=== PATIENT | female | born 1960 | race Caucasian/White ===

== ENCOUNTER → 2017-04-05 | Outpatient (CLI) | payer OTHER ==
--- NOTE | 2017-04-05 13:45 | DIAGNOSTIC IMAGING REPORT ---
BRAIN COMBO CLINICAL HISTORY: ABNORMAL GAIT, TREMOR, NUMBNESS ON LEFT SIDE COMPARISON STUDY: No previous studies for comparison. TECHNIQUE: Utilizing a 1.5 Basia magnet and dedicated coil, multiplanar, multiecho imaging of the brain was performed pre and postcontrast administration. IV administration of 8.5 mL of Gadavist contrast was uneventful. FINDINGS: Diffusion-weighted images show no evidence for an acute ischemic process. Signal characteristics of the cerebellar as well as cerebral hemispheres are unremarkable. Ventricular system is midline. Sella and parasellar regions are unremarkable. Postcontrast images are negative for abnormal postcontrast enhancement. IMPRESSION: Normal study. The above report was generated using voice recognition software. It may contain grammatical, syntax or spelling errors. Electronically signed by: Chin Reyes M.D. 04/05/2017 1:44 PM Dictated Date/Time: 04/05/2017 1:40 PM
== END | disposition home or self-care (01) ==
LOC: MERGE 12:23 → C.MRIBC 12:23
PROVIDERS: ATTEND Psychiatry & Neurology Neurology
DX: R25.1 Tremor, unspecified (principal); R26.9 Unspecified abnormalities of gait and mobility; R20.0 Anesthesia of skin

== ENCOUNTER → 2017-05-31 | Outpatient (CLI) | payer OTHER ==
[2017-05-31 12:21] LABS: INR 2.8 (0.9-1.1); PROTHROMBIN TIME (PATIENT) 31.5 SECONDS (9.0-12.0)
[2017-05-31 12:39] LABS: ESTIMATED AVERAGE GLUCOSE 134 mg/dl; HA1C FLAG Normal (Normal)
[2017-05-31 17:37] LABS: ALT/SGPT 12 U/L (12-78); AST/SGOT 11 U/L (15-37); BLOOD UREA NITROGEN 14 mg/dl (7-18); BUN/CREATININE RATIO 17.9 (10-20); CALCIUM 9.1 mg/dl (8.5-10.1); CARBON DIOXIDE 28 mmol/L (21-32); CHLORIDE 103 mmol/L (98-107); GLUCOSE,FASTING 119 mg/dl (70-99); POTASSIUM 4.3 mmol/L (3.5-5.1); SODIUM 137 mmol/L (136-145)
[2017-05-31 17:39] LABS: ALB/GLOB RATIO 1.1 (0.9-2); ALKALINE PHOSPHATASE 55 U/L (45-117); CHOLESTEROL 236 mg/dl (0-200); CHOLESTEROL/HDL RATIO 4.1; HDL CHOLESTEROL 58 mg/dl; LDL CHOLESTEROL CALCULATED 151 mg/dl; TRIGLYCERIDES 136 mg/dl (0-150); VERY LOW DENSITY LIPOPROT CALC 27 mg/dl
== END | disposition home or self-care (01) ==
LOC: C.LABPBG 11:00
PROVIDERS: ATTEND Physician Assistant
DX: Z00.00 Encounter for general adult medical examination without abnormal findings (principal); E78.5 Hyperlipidemia, unspecified; E11.9 Type 2 diabetes mellitus without complications; D68.9 Coagulation defect, unspecified; Z86.718 Personal history of other venous thrombosis and embolism

== ENCOUNTER → 2017-06-21 | Outpatient (CLI) | payer OTHER | END | disposition home or self-care (01) | LOC: C.LABSPEC 17:54 | PROVIDERS: ATTEND Family Medicine | DX: L02.91 Cutaneous abscess, unspecified (principal) ==

== ENCOUNTER → 2017-11-01 | Outpatient (CLI) | payer OTHER ==
[2017-11-01 17:48] LABS: BASO % 0.4 %; BASO ABS # 0.04 K/uL (0-0.2); EOS % 2.4 %; EOS ABS # 0.21 K/uL (0-0.5); HEMATOCRIT 41.8 % (37-47); HEMOGLOBIN 12.9 g/dL (12.0-16.0); IG# 0.02 K/uL (0.00-0.02); LYMPH % 32.9 %; LYMPH ABS # 2.93 K/uL (1.2-3.4); MEAN CELL VOLUME 95.4 fL (80-100); MEAN CORPUSCULAR HEMOGLOBIN 29.5 pg (25-34); MEAN CORPUSCULAR HGB CONC 30.9 g/dl (32-36); MEAN PLATELET VOLUME 11.2 fL (7.4-10.4); MONO % 7.2 %; MONO ABS # 0.64 K/uL (0.11-0.59); NEUT % 56.9 %; NEUT ABS # 5.07 K/uL (1.4-6.5); PLATELET COUNT 309 K/uL (130-400); RED CELL DISTRIBUTION WIDTH CV 13.9 % (11.5-14.5); WHITE BLOOD COUNT 8.91 K/uL (4.8-10.8)
[2017-11-01 18:44] LABS: BLOOD UREA NITROGEN 20 mg/dl (7-18); CALCIUM 8.8 mg/dl (8.5-10.1); CARBON DIOXIDE 32 mmol/L (21-32); CREATININE 0.84 mg/dl (0.60-1.20); GLUCOSE 105 mg/dl (70-99); POTASSIUM 4.5 mmol/L (3.5-5.1); SODIUM 138 mmol/L (136-145)
== END | disposition home or self-care (01) ==
LOC: C.LABPBG 12:25
PROVIDERS: ATTEND Family Medicine
DX: Z01.818 Encounter for other preprocedural examination (principal)

== ENCOUNTER → 2017-11-09 | Outpatient (CLI) | payer OTHER | END | disposition home or self-care (01) | LOC: C.LABPBG 10:12 | PROVIDERS: ATTEND Nurse Practitioner | DX: E89.0 Postprocedural hypothyroidism (principal) ==

== ENCOUNTER → 2017-11-24 | Outpatient (CLI) | payer OTHER ==
[2017-11-24 12:39] LABS: BASO % 0.5 %; BASO ABS # 0.05 K/uL (0-0.2); EOS ABS # 0.29 K/uL (0-0.5); HEMATOCRIT 39.3 % (37-47); HEMOGLOBIN 12.3 g/dL (12.0-16.0); IG# 0.05 K/uL (0.00-0.02); LYMPH ABS # 2.42 K/uL (1.2-3.4); MEAN CELL VOLUME 92.7 fL (80-100); MEAN CORPUSCULAR HGB CONC 31.3 g/dl (32-36); MEAN PLATELET VOLUME 10.3 fL (7.4-10.4); MONO % 7.3 %; MONO ABS # 0.71 K/uL (0.11-0.59); NEUT % 63.7 %; NEUT ABS # 6.16 K/uL (1.4-6.5); PLATELET COUNT 342 K/uL (130-400); RED CELL DISTRIBUTION WIDTH CV 13.6 % (11.5-14.5); RED CELL DISTRIBUTION WIDTH SD 46.4 fL (36.4-46.3); WHITE BLOOD COUNT 9.68 K/uL (4.8-10.8)
[2017-11-24 14:30] LABS: ALBUMIN 3.2 gm/dl (3.4-5.0); ALT/SGPT 17 U/L (12-78); BLOOD UREA NITROGEN 22 mg/dl (7-18); CALCIUM 8.8 mg/dl (8.5-10.1); CARBON DIOXIDE 30 mmol/L (21-32); CHOLESTEROL 250 mg/dl (0-200); GLUCOSE 123 mg/dl (70-99); POTASSIUM 4.7 mmol/L (3.5-5.1); SODIUM 137 mmol/L (136-145)
[2017-11-24 14:50] LABS: ALKALINE PHOSPHATASE 63 U/L (45-117); AST/SGOT 13 U/L (15-37); LDL CHOLESTEROL CALCULATED 170 mg/dl; TOTAL PROTEIN 7.1 gm/dl (6.4-8.2)
[2017-11-24 15:54] LABS: CREATININE RANDOM URINE 78.8 mg/dl
== END | disposition home or self-care (01) ==
LOC: C.LABPBG 09:48
PROVIDERS: ATTEND Family Medicine
DX: E11.9 Type 2 diabetes mellitus without complications (principal); E89.0 Postprocedural hypothyroidism; R35.0 Frequency of micturition; E78.5 Hyperlipidemia, unspecified; R61 Generalized hyperhidrosis; I10 Essential (primary) hypertension

== ENCOUNTER → 2017-11-30 | Outpatient (CLI) | payer OTHER | END | disposition home or self-care (01) | LOC: C.LABPBG 11:27 | PROVIDERS: ATTEND Family Medicine | DX: R31.9 Hematuria, unspecified (principal) ==

== ENCOUNTER → 2017-12-12 | Outpatient (CLI) | payer OTHER | END | disposition home or self-care (01) | LOC: C.LABPBG 12:13 | PROVIDERS: ATTEND Family Medicine | DX: R31.9 Hematuria, unspecified (principal) ==

== ENCOUNTER → 2018-01-17 | Outpatient (CLI) | payer OTHER ==
[2018-01-17 17:06] LABS: BASO % 0.4 %; BASO ABS # 0.04 K/uL (0-0.2); EOS % 2.4 %; EOS ABS # 0.24 K/uL (0-0.5); HEMATOCRIT 38.2 % (37-47); HEMOGLOBIN 11.9 g/dL (12.0-16.0); IG# 0.03 K/uL (0.00-0.02); LYMPH % 30.3 %; MEAN CELL VOLUME 91.2 fL (80-100); MEAN CORPUSCULAR HEMOGLOBIN 28.4 pg (25-34); MEAN CORPUSCULAR HGB CONC 31.2 g/dl (32-36); MEAN PLATELET VOLUME 10.3 fL (7.4-10.4); MONO % 8.9 %; MONO ABS # 0.88 K/uL (0.11-0.59); NEUT % 57.7 %; NEUT ABS # 5.72 K/uL (1.4-6.5); PLATELET COUNT 276 K/uL (130-400); RED CELL DISTRIBUTION WIDTH CV 14.2 % (11.5-14.5); RED CELL DISTRIBUTION WIDTH SD 47.2 fL (36.4-46.3); WHITE BLOOD COUNT 9.91 K/uL (4.8-10.8)
[2018-01-17 17:21] LABS: BLOOD UREA NITROGEN 23 mg/dl (7-18); CALCIUM 8.5 mg/dl (8.5-10.1); CARBON DIOXIDE 32 mmol/L (21-32); CREATININE 0.88 mg/dl (0.60-1.20); GLUCOSE 126 mg/dl (70-99); POTASSIUM 4.2 mmol/L (3.5-5.1); SODIUM 132 mmol/L (136-145)
== END | disposition home or self-care (01) ==
LOC: C.LABPBG 12:11
PROVIDERS: ATTEND Family Medicine
DX: R25.2 Cramp and spasm (principal)

== ENCOUNTER → 2018-02-02 | Day surgery (SDC) | payer OTHER ==
[2018-01-30 09:35] VITALS: BMI 44.0
--- NOTE | 2018-01-30 10:28 | PAT Medication Instructions ---
Service Date January 30, 2018. Current Home Medication List Albuterol (Ventolin Hfa), 2 PUFF INH Q4 Albuterol Sulf (Albuterol Sulfate), 1 DOSE NEB UD PRN for PRN Ascorbic Acid (Vitamin C), 1,000 MG PO QAM Cholecalciferol (Vitamin D3), 1 TAB PO QAM Cyanocobalamin (Vitamin B-12), 1,000 MCG PO QAM Duloxetine HCl (Cymbalta), 1 CAP PO QAM Duloxetine Hcl (Cymbalta), 60 MG PO HS Enoxaparin (Lovenox), 120 MG SQ Q12H PRN for UD Ferrous Sulfate (Kp Ferrous Sulfate), 1 TAB PO QAM Folic Acid (Folvite), 1 MG PO QAM Furosemide (Lasix), 20 MG PO UD PRN for PRN Gabapentin (Neurontin), 400 MG PO HS Gabapentin (Neurontin), 800 MG PO TID Glucosamine Sulfate (Glucosamine), 1,000 MG PO QAM Home O2 Therapy (Oxygen), 5 LITERS NA HS Hydrocodone-Acetaminophen (Hydrocodone Bitartrate/AC 10-325 mg), 1 TAB PO Q4 PRN for Pain Hydroxyzine Hcl (Atarax), 25 MG PO TID PRN for PRN Levocetirizine Dihydrochloride (Levocetirizine Dihydrochl), 1 TAB PO HS Levothyroxine Sodium (Levothyroxine Sodium), 1 TAB PO QAM Levothyroxine Sodium (Levothyroxine Sodium), 2 TAB PO SAT/SUN Levothyroxine Sodium (Levothyroxine Sodium), 1 TAB PO M-F Magnesium Oxide (Mag-Ox), 400 MG PO QAM Metoprolol Succinate (Metoprolol Succinate ER), 1 TAB PO QAM Montelukast Sodium (Singulair), 10 MG PO QAM Nitroglycerin (Nitrostat), 0.3 MG UT PRN Pantoprazole (Protonix), 20 MG PO QAM Pravastatin (Pravachol ), 20 MG PO HS Senna (Senokot), 1 TAB PO DAILY PRN for Constipation Sucralfate (Sucralfate), 1 TAB PO QPM Tiotropium [place] (Spiriva Handihaler), 1 CAP INH QPM Trazodone HCl (Trazodone HCl), 1 TAB PO HS [Lidocaine Patch], 1 PATCH TOP HS PRN for Pain Medication Instructions For Your Scheduled Surgery -Continue as directed: Enoxaparin (Lovenox), 120 MG SQ Q12H PRN for UD Home O2 Therapy (Oxygen), 5 LITERS NA HS Levothyroxine Sodium (Levothyroxine Sodium), 1 TAB PO QAM Levothyroxine Sodium (Levothyroxine Sodium), 2 TAB PO SAT/SUN Levothyroxine Sodium (Levothyroxine Sodium), 1 TAB PO M-F Nitroglycerin (Nitrostat), 0.3 MG UT PRN - Hold the following medications starting today: Glucosamine Sulfate (Glucosamine), 1,000 MG PO QAM - Hold the following medications 24 hours prior to surgery: [Lidocaine Patch], 1 PATCH TOP HS PRN for Pain - Hold the following medications the morning of surgery: Ascorbic Acid (Vitamin C), 1,000 MG PO QAM Cholecalciferol (Vitamin D3), 1 TAB PO QAM Cyanocobalamin (Vitamin B-12), 1,000 MCG PO QAM Ferrous Sulfate (Kp Ferrous Sulfate), 1 TAB PO QAM Folic Acid (Folvite), 1 MG PO QAM Furosemide (Lasix), 20 MG PO UD PRN for PRN Magnesium Oxide (Mag-Ox), 400 MG PO QAM Senna (Senokot), 1 TAB PO DAILY PRN for Constipation - Take the following medications the morning of surgery with a sip of water: Albuterol (Ventolin Hfa), 2 PUFF INH Q4 (if needed, and bring it with you to the hospital) Albuterol Sulf (Albuterol Sulfate), 1 DOSE NEB UD PRN for PRN Duloxetine HCl (Cymbalta), 1 CAP PO QAM Gabapentin (Neurontin), 800 MG PO TID Hydrocodone-Acetaminophen (Hydrocodone Bitartrate/AC 10-325 mg), 1 TAB PO Q4 PRN for Pain (if needed, but must be taken at least four hours before surgery) Hydroxyzine Hcl (Atarax), 25 MG PO TID PRN for PRN (if needed) Metoprolol Succinate (Metoprolol Succinate ER), 1 TAB PO QAM Montelukast Sodium (Singulair), 10 MG PO QAM Pantoprazole (Protonix), 20 MG PO QAM - Take the following medications as scheduled the night before surgery: Albuterol (Ventolin Hfa), 2 PUFF INH Q4 Albuterol Sulf (Albuterol Sulfate), 1 DOSE NEB UD PRN for PRN (if needed) Duloxetine Hcl (Cymbalta), 60 MG PO HS Furosemide (Lasix), 20 MG PO UD PRN for PRN (if needed) Gabapentin (Neurontin), 400 MG PO HS Gabapentin (Neurontin), 800 MG PO TID Hydrocodone-Acetaminophen (Hydrocodone Bitartrate/AC 10-325 mg), 1 TAB PO Q4 PRN for Pain (if needed) Hydroxyzine Hcl (Atarax), 25 MG PO TID PRN for PRN (if needed) Levocetirizine Dihydrochloride (Levocetirizine Dihydrochl), 1 TAB PO HS Pravastatin (Pravachol ), 20 MG PO HS Senna (Senokot), 1 TAB PO DAILY PRN for Constipation (if needed) Sucralfate (Sucralfate), 1 TAB PO QPM Tiotropium [place] (Spiriva Handihaler), 1 CAP INH QPM Trazodone HCl (Trazodone HCl), 1 TAB PO HS If you have any questions please call us at [phone] or [phone] or [phone]
--- NOTE | 2018-01-30 10:58 | DIAGNOSTIC IMAGING REPORT ---
CHEST 2 VIEWS ROUTINE CLINICAL HISTORY: pre-op, B/L rhonchi on exam COMPARISON STUDY: No previous studies for comparison. FINDINGS: Lung volumes are normal. No pneumothorax or pleural effusion is noted. There is no consolidation to suggest pneumonia. Cardiac size is at the upper limits of normal. Pulmonary vascularity is normal. IMPRESSION: No acute cardiopulmonary findings. Electronically signed by: Mejia Wadsworth M.D. 01/30/2018 10:57 AM Dictated Date/Time: 01/30/2018 10:56 AM
[~2018-02-02] VITALS: Ht 170.2 cm; Wt 129.9 kg
[~2018-02-02] MED LIST: ASCA500 PO; ATROPINE SULFATE 0.1 MG/ML 5ML SYR IV PRN; CHOL1000 PO; CIPR-255 PO; CIPROFLOXACIN / D5W 400 MG IV SCH; CYAN10005 PO; CYM/30 PO; Cysto-Conray II 17.2% 250ML BOTTLE ONE; DEXAMETHASONE SOD INJ 4 MG/ML VIAL ONE; DSY100 PO; DULO60CA44 PO; ENOX120I SQ; EpHEDrine SULFATE INJ 50 MG/ML AMP IV PRN; FENTANYL CITRATE INJ 50 MCG/1 ML 2 ML VIAL IV PRN; FENTANYL CITRATE INJ 50 MCG/1 ML 2 ML VIAL ONE; FERR1TAB13 PO; FLUC100T4 PO; FLUMAZENIL 0.1 MG/1 ML 10 ML VIAL IV PRN; FOLI1TAB8 PO; FURO-85 PO; GABA-1220 PO; GABA800T PO; GLUC10007 PO; GLYCOPYRROLATE INJ 0.2 MG/ML VIAL ONE; HYDR-3126 PO; HYDR-5806 PO; HYDR25CA PO; HYDROmorphone INJ 2 MG/ML SYR/VIAL IV PRN; KETAMINE HCL INJ 50 MG/ML 10 ML VIAL ONE; LABETALOL HCL IV 5 MG/ML 20ML IV PRN; LACTATED RINGER'S 1000ML 1,000 ML IV SCH; LEVO-14 PO; LEVO200T6 PO; LEVO75TA5 PO; LIDOCAINE HCL 2% 2 ML VIAL (20MG/ML) ONE; LIDOCAINE PATCH TOP; MAGN400T6 PO; MEPERIDINE HCL 25 MG/ML CARP IV PRN; MIDAZOLAM HCL 1 MG/ML 2ML VIAL ONE; MONT1TAB3 PO; NALOXONE HCL 0.4 MG/1 ML VIAL/CARP IV PRN; NEOSTIGMINE METHYLSULFATE 5 MG/5 ML SYR ONE; NTRSL3 UT; ONDANSETRON INJ 2 MG/ML 2 ML VIAL IV PRN; ONDANSETRON INJ 2 MG/ML 2 ML VIAL ONE; OXGN; OXYCODONE/ACETAMINOPHEN 7.5-325 TAB PO PRN; PHEN-775 PO; PHENYLEPHRINE 100MCG/ML 5ML SYR IV PRN; PRAV20TA PO; PROPOFOL IV EMULSION 10 MG/ML 20 ML VIAL ONE; PRT/20 PO; PRVHFAIN INH; RRALBUTNEB NEB; SENN-61 PO; SODIUM CHLORIDE 0.9% INJ 10 ML VIAL ONE; SPRIN/30 INH; SUCR1TAB PO; TPRSR/25 PO
[2018-02-02 09:34] VITALS: BP 94/57; PULSE 80; TEMP 37; O2SAT 96; Ht 170.2 cm; Wt 129.9 kg
[2018-02-02 09:44] LABS: PTT PATIENT 31.3 SECONDS (21.0-31.0)
--- NOTE | 2018-02-02 12:28 | History & Physical Bridge Note ---
H&P Re-Evaluation Bridge Note: I have examined the patient, reviewed the History & Physical and in the interval since the performance of the History & Physical I have noted the following changes of clinical significance: No changes noted
--- NOTE | 2018-02-02 12:32 | Discharge Instructions ---
Discharge Instructions Date of Service February 02, 2018. Admission Reason for Admission: Gross Hematuria Discharge Discharge Diagnosis / Problem: Hematuria, Dysuria Discharge Goals Goal(s): Decrease discomfort, Improve function Activity Recommendations Activity Limitations: resume your previous activity Lifting Limitations: gradually increase as tolerated Exercise/Sports Limitations: gradually increase as tolerated Shower/Bathe: no limitations . Instructions / Follow-Up Instructions / Follow-Up May have blood in urine. May have pelvic discomfort. May have voiding urgency or frequency. Call with any fevers or chills. Current Hospital Diet Patient's current hospital diet: Discharge Diet Recommended Diet: Regular Diet Procedures Procedures Performed: Cystoscopy with bilateral retrograde pyelogram Pending Studies Studies pending at discharge: no Laboratory Results Hemoglobin A1c Test 11/24/17 09:49 Range/Units Estimated Average Glucose 126 mg/dl Hemoglobin A1c 6.0 H 4.5-5.6 % Lipid Panel Test 11/24/17 09:49 Range/Units Triglycerides Level 116 0-150 mg/dl Cholesterol Level 250 H 0-200 mg/dl HDL Cholesterol 57 mg/dl Cholesterol/HDL Ratio 4.4 LDL Cholesterol, Calculated 170 mg/dl Medical Emergencies . Who to Call and When: Medical Emergencies: If at any time you feel your situation is an emergency, please call 911 immediately. . Non-Emergent Contact Non-Emergency issues call your: Primary Care Provider, Urologist Call Non-Emergent contact if: you have a fever, temperature is above 101, temperature is above 101.5, your pain is not controlled, your pain is worsening , your pain is unusual for you . . "Provider Documentation" section prepared by Ildefonso Bellamy. .
--- NOTE | 2018-02-02 13:57 | [facility] Operative Report ---
Operative Report Operative Date February 02, 2018. Pre-Operative Diagnosis Hematuria, Dysuria. Post-Operative Diagnosis Same Procedure(s) Performed Cystoscopy with bilateral retrograde pyelogram Surgeon Josesito Estimated Blood Loss Minimal Drains None Anesthesia Type MAC Complication(s) none Disposition Recovery Room / PACU Indications Gross hematuria with dysuria. Risks and benefits discussed at length. Description of Procedure Patient was consented and brought back to the operating room. Patient was placed under anesthesia in the supine position and moved to the dorsal lithotomy position. Patient was prepped and draped in the regular sterile fashion. A time out was completed. A 30degree Cystoscope was placed into the bladder and the entire bladder was examined. The UO's were identified. Each side was cannulized with a catheter and a retrograde pyelogram was completed. A 70 degree lens was then placed. No masses or lesions or other areas of concern were noted. Of note, patient had mild rectocele and cystocele. Also small bladder capacity and hypervascularity of the bladder mckeon. Also external hemorrhoids. The bladder was emptied. The scope was removed. The patient was cleaned, aroused from anesthesia, and transferred to the pacu in stable condition having tolerated the procedure well with no complications. I was present and participated in all aspects of the procedure. The patient will be monitored in the PACU until transferred. I attest to the content of the Intraoperative Record and any orders documented therein. Any exceptions are noted below.
[2018-02-02 14:05] VITALS: BP 135/57; PULSE 81; TEMP 36.7; O2SAT 94
--- NOTE | 2018-02-02 14:14 | DIAGNOSTIC IMAGING REPORT ---
RETROGRADE INCLUDES KUB HISTORY: CYSTO/POSS RETROGRADE FLUOROSCOPY TIME: 25 seconds. FINDINGS: 5 fluoroscopic spot images were submitted for review. Images demonstrate retrograde opacification of the bilateral ureters and renal collecting systems. No hydronephrosis. Probable stones within the right kidney which are partially obscured by the contrast. IMPRESSION: Fluoroscopy provided for bilateral retrograde pyelograms. Electronically signed by: Braulio Desai M.D. 02/02/2018 2:12 PM Dictated Date/Time: 02/02/2018 2:11 PM
--- NOTE | 2018-02-02 14:24 | Anesthesiology Progress Note ---
Anesthesia Post Op Note Date & Time February 02, 2018 at 14:23 Vital Signs Vital Signs Past 12 Hours Date Time Temp Pulse Resp B/P (MAP) Pulse Ox O2 Delivery O2 Flow Rate FiO2 02/02/18 09:34 37.0 80 18 94/57 (69) 96 Room Air Notes Mental Status: alert / awake / arousable, participated in evaluation Pt Amnestic to Procedure: Yes Nausea / Vomiting: adequately controlled Pain: adequately controlled Airway Patency, RR, SpO2: stable & adequate BP & HR: stable & adequate Hydration State: stable & adequate Neuraxial Anesthesia: was administered, sensory block is resolving Anesthetic Complications: no major complications apparent The patient did well. Her vitals are stable.
[2018-02-02 14:36] VITALS: BP 115/57; PULSE 80; O2SAT 96
[2018-02-02 14:55] VITALS: BP 183/66; PULSE 78; TEMP 37; O2SAT 95
== END | disposition home or self-care (01) ==
LOC: C.ACU 08:40
PROVIDERS: ATTEND Urology
DX: R31.0 Gross hematuria (principal); N81.10 Cystocele, unspecified; N81.6 Rectocele; K21.9 Gastro-esophageal reflux disease without esophagitis; F41.9 Anxiety disorder, unspecified; Z68.41 Body mass index [BMI] 40.0-44.9, adult; I65.29 Occlusion and stenosis of unspecified carotid artery; J44.9 Chronic obstructive pulmonary disease, unspecified; I25.10 Atherosclerotic heart disease of native coronary artery without angina pectoris; F17.200 Nicotine dependence, unspecified, uncomplicated; F32.9 Major depressive disorder, single episode, unspecified; E11.40 Type 2 diabetes mellitus with diabetic neuropathy, unspecified; E78.5 Hyperlipidemia, unspecified; I48.0 Paroxysmal atrial fibrillation; I10 Essential (primary) hypertension; E66.01 Morbid (severe) obesity due to excess calories; M19.90 Unspecified osteoarthritis, unspecified site; E89.0 Postprocedural hypothyroidism; R25.1 Tremor, unspecified; Z91.81 History of falling; Z82.3 Family history of stroke; Z82.49 Family history of ischemic heart disease and other diseases of the circulatory system; Z86.711 Personal history of pulmonary embolism; Z84.1 Family history of disorders of kidney and ureter; Z86.718 Personal history of other venous thrombosis and embolism; Z80.0 Family history of malignant neoplasm of digestive organs; Z83.6 Family history of other diseases of the respiratory system; Z79.01 Long term (current) use of anticoagulants; Z79.4 Long term (current) use of insulin; Z88.1 Allergy status to other antibiotic agents; Z88.0 Allergy status to penicillin; Z88.8 Allergy status to other drugs, medicaments and biological substances; Z87.442 Personal history of urinary calculi

== ENCOUNTER → 2018-02-06 | Outpatient (CLI) | payer OTHER ==
[~2018-02-06] MED LIST changes: -ATROPINE SULFATE 0.1 MG/ML 5ML SYR IV PRN; -CIPROFLOXACIN / D5W 400 MG IV SCH; -Cysto-Conray II 17.2% 250ML BOTTLE ONE; -DEXAMETHASONE SOD INJ 4 MG/ML VIAL ONE; -EpHEDrine SULFATE INJ 50 MG/ML AMP IV PRN; -FENTANYL CITRATE INJ 50 MCG/1 ML 2 ML VIAL IV PRN; -FENTANYL CITRATE INJ 50 MCG/1 ML 2 ML VIAL ONE; -FLUMAZENIL 0.1 MG/1 ML 10 ML VIAL IV PRN; -GLYCOPYRROLATE INJ 0.2 MG/ML VIAL ONE; -HYDROmorphone INJ 2 MG/ML SYR/VIAL IV PRN; -KETAMINE HCL INJ 50 MG/ML 10 ML VIAL ONE; -LABETALOL HCL IV 5 MG/ML 20ML IV PRN; -LACTATED RINGER'S 1000ML 1,000 ML IV SCH; -LIDOCAINE HCL 2% 2 ML VIAL (20MG/ML) ONE; -MEPERIDINE HCL 25 MG/ML CARP IV PRN; -MIDAZOLAM HCL 1 MG/ML 2ML VIAL ONE; -NALOXONE HCL 0.4 MG/1 ML VIAL/CARP IV PRN; -NEOSTIGMINE METHYLSULFATE 5 MG/5 ML SYR ONE; -ONDANSETRON INJ 2 MG/ML 2 ML VIAL IV PRN; -ONDANSETRON INJ 2 MG/ML 2 ML VIAL ONE; -OXYCODONE/ACETAMINOPHEN 7.5-325 TAB PO PRN; -PHENYLEPHRINE 100MCG/ML 5ML SYR IV PRN; -PROPOFOL IV EMULSION 10 MG/ML 20 ML VIAL ONE; -SODIUM CHLORIDE 0.9% INJ 10 ML VIAL ONE
[2018-02-06 17:00] LABS: BASO % 0.4 %; BASO ABS # 0.04 K/uL (0-0.2); EOS % 2.7 %; EOS ABS # 0.26 K/uL (0-0.5); HEMATOCRIT 39.8 % (37-47); HEMOGLOBIN 12.5 g/dL (12.0-16.0); IG# 0.07 K/uL (0.00-0.02); LYMPH % 28.8 %; LYMPH ABS # 2.79 K/uL (1.2-3.4); MEAN CELL VOLUME 91.1 fL (80-100); MEAN CORPUSCULAR HEMOGLOBIN 28.6 pg (25-34); MEAN CORPUSCULAR HGB CONC 31.4 g/dl (32-36); MEAN PLATELET VOLUME 10.4 fL (7.4-10.4); MONO % 8.6 %; MONO ABS # 0.83 K/uL (0.11-0.59); NEUT % 58.8 %; NEUT ABS # 5.71 K/uL (1.4-6.5); PLATELET COUNT 287 K/uL (130-400); RED CELL DISTRIBUTION WIDTH CV 14.3 % (11.5-14.5); RED CELL DISTRIBUTION WIDTH SD 47.2 fL (36.4-46.3); RETIC COUNT % 2.9 % (0.5-2.0)
== END | disposition home or self-care (01) ==
LOC: C.LABPBG 11:51
PROVIDERS: ATTEND Family Medicine
DX: Z00.00 Encounter for general adult medical examination without abnormal findings (principal); D64.9 Anemia, unspecified

== ENCOUNTER 2018-05-13 15:22 | Emergency (ER) | payer OTHER ==
[~2018-05-13] VITALS: Ht 167.6 cm; Wt 132.4 kg
[~2018-05-13 15:22] MED LIST changes: -FLUC100T4 PO; -HYDR-3126 PO; -PHEN-775 PO
[2018-05-13 15:30] VITALS: TEMP 36.8; O2SAT 97; Ht 167.6 cm; Wt 132.4 kg
[2018-05-13] MEDS: SODIUM CHLORIDE 0.9% 1000ML 1,000 ML IV STA ×2 (15:48→16:51)
[2018-05-13] MEDS ORDERED: OPTIRAY 320 IV PRN (16:00)
--- NOTE | 2018-05-13 16:00 | EMERGENCY ROOM VISIT NOTE ---
History Report prepared by Fabián: Israel Zheng Under the Supervision of: Dr. Tonja Leal D.O. First contact with patient: 15:36 Chief Complaint: CARDIAC ASSESSMENT Stated Complaint: CHEST PAIN History of Present Illness The patient is a 57 year old female who presents to the Emergency Room with complaints of a resolved episode of chest burning that occurred this afternoon. The patient states her symptoms started a week ago with pain begin her left ear. She reports she thought she had an ear ache, and she could hear her heart beat in her ear all week. The patient notes she was coming in from outside today and was walking up the stairs. She states she was extremely dizzy, nauseous, and short of breath by the time she got to the door. Patient states she is typically short of breath with any exertion, did not feel that this was significantly different from her baseline. The patient reports her pain was now radiating from her left ear down her jaw and into her arm. Patient is right -hand dominant. No recent history of falls or injury to the head, neck, her left upper extremity. She notes it was burning and only felt this today. The patient states she also has leg swelling. She reports she takes Lasix PRN. The patient notes she has a history of an ND eight years ago and had no pain with her symptoms. She states she currently smokes. The patient reports a history of blood clots since she was 17. She notes she takes Eliquis and metoprolol and denies missing medication doses. The patient states a history of dermitis in her left ear. She denies a history of this before, right sided pain, radiation to back, vomiting, cough, cold, abdominal pain, recent travel, current alcohol use, recent changes in medication, or calf pain. Source of History: patient Onset: this afternoon Position: chest Quality: burning Timing: resolved Modifying Factors (Worsening): exertion Associated Symptoms: + SOB, + nausea, No cough, No vomiting, No abdominal pain, No back pain Note: Associated symptoms: pain behind left ear, dizzy, left jaw burning, left arm burning Review of Systems See HPI for pertinent positives & negatives. A total of 10 systems reviewed and were otherwise negative. Past Medical & Surgical Medical Problems: (1) Dermatitis of left ear canal (2) H/O blood clots (3) Myocardial infarction Family History Patient reports no known family medical history. Social History Smoking Status: Current Every Day Smoker Alcohol Use: none Marital Status: Occupation Status: disabled Current/Historical Medications Scheduled Apixaban (Eliquis), 5 MG PO BID Budesonide/Formoterol Fumarate (Symbicort 80/4.5 Inhaler), 2 PUFFS INH BID Buspirone Hcl (Buspirone Hcl), 5 MG PO AMPM Clindamycin Hcl (Cleocin), 3 CAP PO TID Cyanocobalamin (Vitamin B-12), 1,000 MCG PO QAM Duloxetine HCl (Cymbalta), 30 MG PO QAM Duloxetine Hcl (Cymbalta), 60 MG PO HS Ferrous Sulfate (Kp Ferrous Sulfate), 325 TAB PO QAM Folic Acid (Folvite), 1 MG PO QAM Gabapentin (Neurontin), 1,200 MG PO HS Gabapentin (Neurontin), 800 MG PO AM & AFTERNOON Home O2 Therapy (Oxygen), 5 LITERS NA HS Hydrocodone-Acetaminophen (Hydrocodone Bitartrate/AC 10-325 mg), 1 TAB PO Q6H Hydroxyzine Pamoate (Vistaril), 25 MG PO TID Levocetirizine Dihydrochloride (Levocetirizine Dihydrochl), 5 MG PO HS Levothyroxine Sodium (Levothyroxine Sodium), 400 MCG PO SAT/SUN Levothyroxine Sodium (Levothyroxine Sodium), 200 MCG PO 5XD Magnesium Oxide (Mag-Ox), 800 MG PO HS Methocarbamol (Methocarbamol), 1,000 MG PO QID Metoprolol Succinate (Metoprolol Succinate ER), 25 MG PO QAM Montelukast Sodium (Singulair), 10 MG PO QAM Nitroglycerin (Nitrostat), 0.3 MG UT PRN Pantoprazole (Protonix), 20 MG PO QAM Pravastatin (Pravachol ), 20 MG PO HS Sucralfate (Sucralfate), 1 TAB PO QPM Tiotropium [place] (Spiriva Handihaler), 1 CAP INH QPM Trazodone HCl (Trazodone HCl), 200 MG PO HS Scheduled PRN Albuterol (Ventolin Hfa), 2 PUFF INH Q4 PRN for SOB/Wheezing Albuterol Sulf (Albuterol Sulfate), 1 DOSE NEB UD PRN for PRN Furosemide (Lasix), 20 MG PO UD PRN for PRN Senna (Senokot), 8.6 MG PO DAILY PRN for Constipation [Lidocaine Patch], 1 PATCH TOP HS PRN for Pain Allergies Coded Allergies: Pregabalin (Verified Allergy, Severe, SHORTNESS OF BREATH, 02/02/18) congestive heart failure Cephalexin (Verified Allergy, Unknown, SEVERE N/D, 02/02/18) Ethanol (Verified Allergy, Unknown, SEVERE SEDATION, RESP DEPRESSION, 02/02) PT CAN TOLERATE FENTANYL IV. Fentanyl (Verified Allergy, Unknown, SEVERE SEDATION, RESP DEPRESSION, ) PT CAN TOLERATE FENTANYL IV. Fluticasone (Verified Allergy, Unknown, SEVERE THRUSH, 02/02/18) Milk Protein Extract (Verified Allergy, Unknown, SEVERE THRUSH, 02/02/18) Penicillins (Verified Allergy, Unknown, ANAPHYLAXIS, 02/02/18) Salmeterol (Verified Allergy, Unknown, SEVERE THRUSH, 01/30/18) Sulfamethoxazole w/Trimethoprim (Verified Allergy, Unknown, SEVERE NAUSEA , 01/30/18) Ketorolac Tromethamine (Verified Adverse Reaction, Intermediate, headache , 02/02/18) Physical Exam Vital Signs Date Time Temp Pulse Resp B/P (MAP) Pulse Ox O2 Delivery O2 Flow Rate FiO2 05/13/18 18:25 68 21 173/80 97 05/13/18 17:43 69 18 186/88 97 Room Air 05/13/18 16:37 63 20 174/92 99 Nasal Cannula 2.0 05/13/18 15:33 95 Room Air 05/13/18 15:33 67 05/13/18 15:30 97 Nasal Cannula 2.0 05/13/18 15:30 36.8 73 18 145/64 97 Nasal Cannula 2.0 Physical Exam GENERAL: alert, well appearing, well nourished, no distress, non-toxic. Edentulous. Obese. HEAD: No sinus tenderness to palpation. Mild left mastoid tenderness to palpation. EYE EXAM: normal conjunctiva, PERRL and EOM's grossly intact EARS: TMs clear bilaterally. OROPHARYNX: no exudate, no erythema, lips, buccal mucosa, and tongue normal and mucous membranes are moist NECK: supple, no nuchal rigidity, no adenopathy with the exception of the left neck, non-tender. Left neck: Palpable mass consistent with large lymph node on the anterior cervical chain located along the SCM inferiorly to the angle of the mandible. Mobile. Mildly tender to palpation. CHEST: Mild left chest wall tenderness to palpation. LUNGS: Diminished breath sounds bilaterally. Normal chest wall mechanics. No wheezes, rhonchi, or rales. HEART: no murmurs, S1 normal and S2 normal ABDOMEN: abdomen soft, non-tender, normo-active bowel sounds, no masses, no rebound or guarding. BACK: Back is symmetrical on inspection and there is no deformity, no midline tenderness, no CVA tenderness. SKIN: no rashes and no bruising UPPER EXTREMITIES: upper extremities are grossly normal. Nontender. Full ROM. Equal radial pulses bilaterally. Normal strength bilaterally. LOWER EXTREMITIES: Trace bilateral pedal edema. Nontender calves. Full ROM. NEURO EXAM: Normal sensorium, cranial nerves II-XII grossly intact, normal speech, no gross weakness of arms, no gross weakness of legs. No ataxia, no facial droop, no obvious facial swelling, normal gait. Medical Decision & Procedures ER Provider Diagnostic Interpretation: Radiology results have been interpreted by the radiologist and reviewed by me. CT MASTOIDS-ORB/SELLA/TEMP W/O CT DOSE: 1202.50 mGy.cm CLINICAL HISTORY: Left ear pain. Decreased hearing. History of mastoiditis. TECHNIQUE: Helical images were acquired in the transverse plane. Sagittal and coronal reformatted images were acquired. A dose lowering technique was utilized adhering to the principles of ALARA. COMPARISON STUDY: None. FINDINGS: The mastoid air cells are symmetrically aerated. The middle ear cavities are well aerated. The scutum is intact bilaterally. The inner ear structures appear symmetric. The ports acoustic is appears symmetric. IMPRESSION: 1. No mastoid, middle ear, or inner ear abnormalities identified. Electronically signed by: Landon Armenta M.D. 05/13/2018 5:17 PM Dictated Date/Time: 05/13/2018 5:14 PM CHEST ONE VIEW PORTABLE CLINICAL HISTORY: Atypical chest pain COMPARISON STUDY: 01/30/2018 FINDINGS: The cardiac and mediastinal contours are normal. There is no evidence of focal pulmonary consolidation. There is no evidence of failure. No pleural effusions are visualized.[ IMPRESSION: No active disease in the chest. Electronically signed by: Landon Armenta M.D. 05/13/2018 4:14 PM Dictated Date/Time: 05/13/2018 4:[address] NECK ANGIO WITH CONTRAST CLINICAL HISTORY: Left neck swelling and palpable mass. DECREASED HEARING COMPARISON STUDY: No previous studies for comparison. TECHNIQUE: CT angiography was performed from the aortic arch to the skull base. MIP imaging was performed. The patient was scanned in a dynamic helical fashion during intravenous administration of 94 cc of Optiray 320. A dose lowering technique was utilized adhering to the principles of ALARA. CT DOSE: Technique: CT angiogram of the carotid and vertebral arteries was obtained using intravenous contrast and 3-D reconstruction. NASCET criteria was utilized. Findings: The right carotid revealed no evidence of aneurysm and no evidence of dissection. There is no evidence of hemodynamic significant stenosis. There are atheromatous changes at the left carotid bifurcation. There is a 56% stenosis of the proximal left internal carotid artery. There is no evidence of hemodynamically significant vertebral stenosis. There is no evidence of vertebral dissection. The right vertebral artery terminates in a PICA branch. There is a partially visualized right superior orbital varix There is a prominent lymph node abutting the posterior aspect of the left parotid gland measuring 14 x 10 mm. IMPRESSION: 1. 56% stenosis of the proximal left internal carotid artery 2. Prominent lymph node abutting the posterior aspect of the left parotid gland measuring 14 x 10 mm 3. Partially visualized right superior orbital varix Electronically signed by: Landon Armenta M.D. 05/13/2018 5:12 PM Dictated Date/Time: 05/13/2018 5:02 PM Laboratory Results 05/13/18 15:32 Red Blood Count 4.72, Mean Corpuscular Volume 89.0, Mean Corpuscular Hemoglobin 27.3, Mean Corpuscular Hemoglobin Concent 30.7, Mean Platelet Volume 10.4, Neutrophils (%) (Auto) 64.0, Lymphocytes (%) (Auto) 27.8, Monocytes (%) (Auto) 5.6, Eosinophils (%) (Auto) 1.7, Basophils (%) (Auto) 0.5, Neutrophils # (Auto) 6.75, Lymphocytes # (Auto) 2.93, Monocytes # (Auto) 0.59, Eosinophils # (Auto) 0.18, Basophils # (Auto) 0.05 05/13/18 15:32 Test 05/13/18 15:32 05/13/18 15:36 White Blood Count 10.54 K/uL (4.8-10.8) Red Blood Count 4.72 M/uL (4.2-5.4) Hemoglobin 12.9 g/dL (12.0-16.0) Hematocrit 42.0 % (37-47) Mean Corpuscular Volume 89.0 fL (80-100) Mean Corpuscular Hemoglobin 27.3 pg (25-34) Mean Corpuscular Hemoglobin Concent 30.7 g/dl (32-36) Platelet Count 289 K/uL (130-400) Mean Platelet Volume 10.4 fL (7.4-10.4) Neutrophils (%) (Auto) 64.0 % Lymphocytes (%) (Auto) 27.8 % Monocytes (%) (Auto) 5.6 % Eosinophils (%) (Auto) 1.7 % Basophils (%) (Auto) 0.5 % Neutrophils # (Auto) 6.75 K/uL (1.4-6.5) Lymphocytes # (Auto) 2.93 K/uL (1.2-3.4) Monocytes # (Auto) 0.59 K/uL (0.11-0.59) Eosinophils # (Auto) 0.18 K/uL (0-0.5) Basophils # (Auto) 0.05 K/uL (0-0.2) RDW Standard Deviation 45.5 fL (36.4-46.3) RDW Coefficient of Variation 13.8 % (11.5-14.5) Immature Granulocyte % (Auto) 0.4 % Immature Granulocyte # (Auto) 0.04 K/uL (0.00-0.02) Prothrombin Time 10.1 SECONDS (9.0-12.0) Prothromb Time International Ratio 1.0 (0.9-1.1) Anion Gap 7.0 mmol/L (3-11) Est Creatinine Clear Calc Drug Dose 97.3 ml/min Estimated GFR () 84.5 Estimated GFR (Non- 72.9 BUN/Creatinine Ratio 19.1 (10-20) Calcium Level 8.7 mg/dl (8.5-10.1) Magnesium Level 1.5 mg/dl (1.8-2.4) Total Bilirubin 0.3 mg/dl (0.2-1) Aspartate Amino Transf (AST/SGOT) 12 U/L (15-37) Alanine Aminotransferase (ALT/SGPT) 15 U/L (12-78) Alkaline Phosphatase 59 U/L (45-117) Troponin I < 0.015 ng/ml (0-0.045) Pro-B-Type Natriuretic Peptide 509 pg/ml (0-900) Total Protein 6.9 gm/dl (6.4-8.2) Albumin 3.1 gm/dl (3.4-5.0) Globulin 3.8 gm/dl (2.5-4.0) Albumin/Globulin Ratio 0.8 (0.9-2) Thyroid Stimulating Hormone (TSH) 1.630 uIu/ml (0.300-4.500) Lyme Disease IgG Antibody NEG (NEG) Lyme Disease IgM Antibody NEG (NEG) Bedside Troponin I < 0.030 ng/ml (0-0.045) Laboratory results per my review. Medications Administered Medications (Trade) Dose Ordered Sig/Lisa Route Start Time Stop Time Status Last Admin Dose Admin Sodium Chloride 1,000 ml @ 250 mls/hr Q4H STAT IV 05/13/18 15:48 05/13/18 18:45 DC 05/13/18 16:51 250 MLS/HR Morphine Sulfate (MoRPHine SULFATE INJ) 4 mg NOW STAT IV 05/13/18 16:32 05/13/18 16:35 DC 05/13/18 16:43 4 MG Magnesium Oxide (Mag-Ox Tab) 400 mg ONE STAT PO 05/13/18 17:55 05/13/18 17:56 DC 05/13/18 18:20 400 MG Clindamycin HCl (Cleocin Cap) 450 mg ONE ONCE PO 05/13/18 18:15 05/13/18 18:16 DC 05/13/18 18:20 450 MG Clindamycin HCl (Cleocin 150MG Home Pack) 1 homepack UD ONCE PO 05/13/18 18:15 05/13/18 18:16 DC 05/13/18 18:20 1 HOMEPACK ECG Per My Interpretation Indication: chest pain Rate (beats per minute): 66 Rhythm: sinus rhythm Findings: no acute ischemic change, no ectopy, other (Normal axis. Normal intervals) ED Course 1539: The patient was evaluated in room A10. A complete history and physical exam was performed. 1548: Ordered Sodium Chloride 1000 ml @ 250 mls/hr IV 1632: Ordered Morphine Sulfate 4mg IV 1726: Ordered Magnesium Sulfate 2gm IV 1755: Ordered Magnesium Oxide 400mg PO 1815: Ordered Clindamycin HCl 1 homepack PO, Clindamycin HCl 450mg PO 1819: Upon reevaluation, the patient is feeling better. I discussed the findings and the treatment plan with the patient. Patient now recalls she did have a dental appointment last week in which her dentures were readjusted for improved fit, and she slowly began to notice the neck pain following this dental appointment. I did discuss with her the possibility that she has an occult infection stemming from this dental procedure which may have led to the enlarged lymph node. While this could be reactive, given her comorbidities and risk factors and using shared medical decision making, we felt a course of antibiotics was appropriate and prudent. She has previously taken clindamycin for prophylaxis of dental procedures as well as dental infections and is comfortable doing so. She verbalizes agreement and understanding. The patient was discharged home. Medical Decision Differential diagnoses includes but is not limited to acute coronary syndrome, myocardial infarction, pericarditis, pulmonary embolus, aortic dissection, pneumonia, pneumothorax, musculoskeletal, shingles, esophageal. Patient with complicated medical history, however feel today's symptoms most likely due to discomfort from the enlarged lymph node found in the left neck. Given that she has been having chest pain for greater than 8 hours with a negative troponin here, I do not suspect ACS despite her history. No change in chest discomfort with exertion. I do not suspect PE or DVT given that she reports compliance with her Eliquis that she has had thromboembolic events previously. Patient not hypoxic or tachycardic here, no worsening tachypnea with exertion. Patient with no asymmetric lower extremity edema or calf tenderness to otherwise be more suggestive of new DVT while anticoagulated. Patient's symptoms here improved with some treatment of her pain and did not recur. Patient with no increased work of breathing, no evidence of congestive heart failure, no evidence of effusion or consolidation on chest x-ray. Patient found to have enlarged lymph node on her neck which upon additional questioning may have started from a mild dental infection as last week her dentures were readjusted. In light of this as well as her penicillin allergy, patient started on clindamycin and I discussed with her close follow-up with her family doctor. No other evidence of abscess or vascular phenomenon on CT angiography of the neck. Discussed with her that if her lymph node does not improve, she may also need to see an ear nose did discuss with her in detail and at length the importance of close follow-up, use and possible ADRs of the clindamycin which she has previously taken, symptoms to watch and return for, encourage tobacco cessation, discussed her overall health risks due to her multiple comorbidities and ongoing tobacco use, she verbalized understanding of all this was agreeable with plan. I do not suspect additional occult vascular etiology or infection at this time. [place] Drug Monitoring Program Search Results: patient reviewed within database, no issues identified Medication Reconcilliation Current Medication List: was personally reviewed by me Blood Pressure Screening Patient's blood pressure: Elevated blood pressure Blood pressure disposition: Referred to PCP Impression Primary Impression: Lymph node enlargement Additional Impressions: Neck pain Hypomagnesemia Chest pain Scribe Attestation The scribe's documentation has been prepared under my direction and personally reviewed by me in its entirety. I confirm that the note above accurately reflects all work, treatment, procedures, and medical decision making performed by me. Departure Information Dispostion Home / Self-Care Prescriptions Clindamycin Hcl (CLEOCIN) 150 Mg Cap 3 CAP PO TID for 7 Days, #63 CAP Prov: Tonja Leal DO 05/13/18 Referrals Gerda Johnson DO (PCP) Forms IMPORTANT VISIT INFORMATION Patient Instructions My [facility] Additional Instructions Please take antibiotics as prescribed. Please make sure drinking plenty of water and staying well-hydrated. Viral antibiotics please consider using a probiotic daily and eating yogurt. Please continue your other medications as prescribed. Please call follow-up with your family doctor to have them recheck your enlarged lymph node in a sure that it is improving on antibiotics. If you develop increased pain or swelling of the neck, develop difficulty swallowing, difficulty breathing, fevers or chills, worsening chest pain, arm pain or trouble breathing, or are unable to open your mouth, you have any other new or concerning symptoms, please return the emergency room. Problem Qualifiers Additional Impressions: Chest pain Chest pain type: unspecified Qualified Codes: R07.9 - Chest pain, unspecified
[2018-05-13 16:06] LABS: BASO % 0.5 %; BASO ABS # 0.05 K/uL (0-0.2); EOS % 1.7 %; EOS ABS # 0.18 K/uL (0-0.5); HEMOGLOBIN 12.9 g/dL (12.0-16.0); IG# 0.04 K/uL (0.00-0.02); LYMPH % 27.8 %; LYMPH ABS # 2.93 K/uL (1.2-3.4); MEAN CORPUSCULAR HEMOGLOBIN 27.3 pg (25-34); MEAN CORPUSCULAR HGB CONC 30.7 g/dl (32-36); MEAN PLATELET VOLUME 10.4 fL (7.4-10.4); MONO % 5.6 %; MONO ABS # 0.59 K/uL (0.11-0.59); NEUT ABS # 6.75 K/uL (1.4-6.5); PLATELET COUNT 289 K/uL (130-400); RED CELL DISTRIBUTION WIDTH CV 13.8 % (11.5-14.5); RED CELL DISTRIBUTION WIDTH SD 45.5 fL (36.4-46.3); WHITE BLOOD COUNT 10.54 K/uL (4.8-10.8)
--- NOTE | 2018-05-13 16:16 | DIAGNOSTIC IMAGING REPORT ---
CHEST ONE VIEW PORTABLE CLINICAL HISTORY: Atypical chest pain COMPARISON STUDY: 01/30/2018 FINDINGS: The cardiac and mediastinal contours are normal. There is no evidence of focal pulmonary consolidation. There is no evidence of failure. No pleural effusions are visualized.[ IMPRESSION: No active disease in the chest. Electronically signed by: Landon Armenta M.D. 05/13/2018 4:14 PM Dictated Date/Time: 05/13/2018 4:14 PM
[2018-05-13] MEDS ORDERED: MoRPHine SULFATE 4 MG/ML 1 ML CARP\\VIAL IV STA (16:32)
[2018-05-13 16:37] LABS: ALBUMIN 3.1 gm/dl (3.4-5.0); ALKALINE PHOSPHATASE 59 U/L (45-117); ALT/SGPT 15 U/L (12-78); AST/SGOT 12 U/L (15-37); BLOOD UREA NITROGEN 17 mg/dl (7-18); CALCIUM 8.7 mg/dl (8.5-10.1); CARBON DIOXIDE 28 mmol/L (21-32); CREATININE 0.87 mg/dl (0.60-1.20); GLUCOSE 101 mg/dl (70-99); POTASSIUM 4.3 mmol/L (3.5-5.1); SODIUM 135 mmol/L (136-145); TOTAL PROTEIN 6.9 gm/dl (6.4-8.2)
--- NOTE | 2018-05-13 17:13 | DIAGNOSTIC IMAGING REPORT ---
CT NECK ANGIO WITH CONTRAST CLINICAL HISTORY: Left neck swelling and palpable mass. DECREASED HEARING COMPARISON STUDY: No previous studies for comparison. TECHNIQUE: CT angiography was performed from the aortic arch to the skull base. MIP imaging was performed. The patient was scanned in a dynamic helical fashion during intravenous administration of 94 cc of Optiray 320. A dose lowering technique was utilized adhering to the principles of ALARA. CT DOSE: Technique: CT angiogram of the carotid and vertebral arteries was obtained using intravenous contrast and 3-D reconstruction. NASCET criteria was utilized. Findings: The right carotid revealed no evidence of aneurysm and no evidence of dissection. There is no evidence of hemodynamic significant stenosis. There are atheromatous changes at the left carotid bifurcation. There is a 56% stenosis of the proximal left internal carotid artery. There is no evidence of hemodynamically significant vertebral stenosis. There is no evidence of vertebral dissection. The right vertebral artery terminates in a PICA branch. There is a partially visualized right superior orbital varix There is a prominent lymph node abutting the posterior aspect of the left parotid gland measuring 14 x 10 mm. IMPRESSION: 1. 56% stenosis of the proximal left internal carotid artery 2. Prominent lymph node abutting the posterior aspect of the left parotid gland measuring 14 x 10 mm 3. Partially visualized right superior orbital varix Electronically signed by: Landon Armenta M.D. 05/13/2018 5:12 PM Dictated Date/Time: 05/13/2018 5:02 PM
--- NOTE | 2018-05-13 17:18 | DIAGNOSTIC IMAGING REPORT ---
CT MASTOIDS-ORB/SELLA/TEMP W/O CT DOSE: 1202.50 mGy.cm CLINICAL HISTORY: Left ear pain. Decreased hearing. History of mastoiditis. TECHNIQUE: Helical images were acquired in the transverse plane. Sagittal and coronal reformatted images were acquired. A dose lowering technique was utilized adhering to the principles of ALARA. COMPARISON STUDY: None. FINDINGS: The mastoid air cells are symmetrically aerated. The middle ear cavities are well aerated. The scutum is intact bilaterally. The inner ear structures appear symmetric. The ports acoustic is appears symmetric. IMPRESSION: 1. No mastoid, middle ear, or inner ear abnormalities identified. Electronically signed by: Landon Armenta M.D. 05/13/2018 5:17 PM Dictated Date/Time: 05/13/2018 5:14 PM
[2018-05-13] MEDS ORDERED: MAGNESIUM SULFATE 1GM / D5W 1 GM BAG IV STA (17:26)
[2018-05-13] MEDS ORDERED: APIX1TAB3 PO (17:32)
[2018-05-13] MEDS ORDERED: RBX500 PO (17:34)
[2018-05-13] MEDS ORDERED: SYMIN/8045 INH (17:36)
[2018-05-13] MEDS ORDERED: BUSP5TAB59 PO (17:38)
[2018-05-13] MEDS ORDERED: MAGNESIUM OXIDE 400 MG TAB PO STA (17:55)
[2018-05-13] MEDS ORDERED: CLIN150C PO (18:10)
[2018-05-13] MEDS ORDERED: CLINDAMYCIN 150MG HOME PACK PO ONE (18:15)
[2018-05-13] MEDS ORDERED: CLINDAMYCIN HCL 150 MG CAP PO ONE (18:15)
[2018-05-13 18:25] VITALS: BP 173/80; PULSE 68; O2SAT 97
== END 2018-05-13 18:28 | disposition home or self-care (01) ==
LOC: EDBD 15:22 → C.EDA 15:23
DX: R59.0 Localized enlarged lymph nodes (principal); M54.2 Cervicalgia; E83.42 Hypomagnesemia; R07.9 Chest pain, unspecified; F17.200 Nicotine dependence, unspecified, uncomplicated; I25.2 Old myocardial infarction; Z87.891 Personal history of nicotine dependence; Z79.01 Long term (current) use of anticoagulants; Z79.899 Other long term (current) drug therapy; Z79.51 Long term (current) use of inhaled steroids; Z88.8 Allergy status to other drugs, medicaments and biological substances; Z88.6 Allergy status to analgesic agent; Z88.0 Allergy status to penicillin; Z88.2 Allergy status to sulfonamides; Z91.048 Other nonmedicinal substance allergy status; Z91.011 Allergy to milk products

== ENCOUNTER 2020-04-18 08:33 | Inpatient (IN) ==
[2020-04-18] MEDS ORDERED: SODIUM CHLORIDE 0.9% 1000ML 1,000 ML IV ONE ×2 (09:01→10:05)
[2020-04-18] MEDS ORDERED: MoRPHine SULFATE 4 MG/ML 1 ML CARP\\VIAL IV STA ×2 (09:01→10:52)
[2020-04-18] MEDS ORDERED: PROCHLORPERAZINE 1 ML IV ONE (09:01)
--- NOTE | 2020-04-18 09:12 | Emergency Department Note ---
History of Present Illness General Chief complaint: Abdominal Pain Stated complaint: DIARRHEA,NAUSEA,UPPER ABD PAIN INTO BACK Time Seen by Provider: 04/18/20 08:42 History of Present Illness Maximum Pain Intensity: 7 59-year-old female who presents to the emergency department with complaint of epigastric pain radiating through to the back over the past few days. She reports notable nausea and belching as well. The patient reports that she has had 3 months of chronic diarrhea. She has followed up with Dr. Kelley, who has her scheduled next Tuesday for a colonoscopy. The patient reports that her last EGD was in 2018, showing a gastritis. The patient is currently on Nexium DR 40 mg twice daily, and Carafate after her evening meal. The patient has not noticed any blood in her stools. It has had intermittent dark appearance. She did have a recent stool study that was normal. She denies any coffee-ground emesis. The patient also has a history of atrial fibrillation with myocardial infarction. She has had a recent sestamibi stress test that was normal. She denies any shortness of breath, fever or chills. She denies prior history of pancreatitis, hepatitis or gallbladder issues. She does have a strong family history of gallbladder disease. She currently rates her discomfort a 7 out of 10. Home Medications Home Medications Medication Instructions Recorded Confirmed Type Oxygen Home #1 ea 03/20/19 04/18/20 Rx apixaban 5 mg tablet 5 mg PO BID #60 tab 03/20/19 04/18/20 Rx blood sugar diagnostic #100 ea 03/20/19 04/18/20 Rx cholecalciferol (vitamin D3) 25 1,000 units PO DAILY #30 cap 03/20/19 04/18/20 Rx mcg (1,000 unit) capsule lancets 30 gauge #200 ea 03/20/19 04/18/20 Rx nitroglycerin 0.4 mg sublingual 0.4 mg SUBLINGUAL UD PRN #30 tab 03/20/19 04/18/20 Rx tablet pravastatin 20 mg tablet 20 mg PO HS #90 tab 04/30/19 04/18/20 Rx miscellaneous medical supply #1 ea 05/14/19 04/18/20 Rx metformin 1,000 mg tablet 1,000 mg PO BID #180 tab 06/08/19 04/18/20 Rx nystatin 100,000 unit/mL oral 200,000 units BUCCAL QID PRN 10 07/12/19 04/18/20 Rx suspension Days #80 ml albuterol sulfate 2.5 mg/0.5 mL 2.5 mg INHALATION QID PRN #30 ea 09/13/19 04/18/20 Rx solution for nebulization albuterol sulfate 90 mcg/actuation 2 puff INHALATION Q6H PRN #18 gm 09/13/19 04/18/20 Rx aerosol inhaler mupirocin 2 % topical ointment 1 appln TOP TID #22 gm 09/26/19 04/18/20 Rx cyanocobalamin (vitamin B-12) 500 1,000 mcg PO DAILY #60 tab 10/15/19 04/18/20 Rx mcg tablet clobetasol 0.05 % lotion 1 appln TOP BID PRN 14 Days #59 ml 10/16/19 04/18/20 Rx fluocinolone acetonide oil 0.01 % 5 drops OT BID 7 Days #20 ml 10/22/19 04/18/20 Rx ear drops miscellaneous medical supply #1 ea 11/14/19 04/18/20 Rx gabapentin 800 mg tablet 800 mg PO .COMPLEX #105 tab 12/10/19 04/18/20 Rx levocetirizine 5 mg tablet 5 mg PO HS #30 tab 12/10/19 04/18/20 Rx buspirone 10 mg tablet 10 mg PO BID #60 tab 12/12/19 04/18/20 Rx magnesium oxide 400 mg PO BID #60 tab 12/26/19 04/18/20 Rx hydroxyzine pamoate 25 mg capsule 25 mg PO TID PRN #60 cap 01/14/20 04/18/20 Rx folic acid 1 mg tablet 1 mg PO DAILY #30 tab 01/16/20 04/18/20 Rx metoprolol succinate 25 mg 25 mg PO BID #60 tab 01/22/20 04/18/20 Rx tablet,extended release 24 hr levothyroxine 200 mcg tablet 200 mcg PO 6XWK #90 tab 01/23/20 04/18/20 Rx esomeprazole magnesium 40 mg 40 mg PO BID #180 cap 01/29/20 04/18/20 Rx capsule,delayed release ferrous sulfate 325 mg (65 mg 325 mg PO BID #60 tab 02/06/20 04/18/20 Rx iron) tablet duloxetine 30 mg capsule,delayed 30 mg PO QAM #30 cap 02/15/20 04/18/20 Rx release montelukast 10 mg tablet 10 mg PO DAILY PRN #30 tab 02/20/20 04/18/20 Rx fluticasone fur. 100 mcg-umeclid 1 puffs INH DAILY #60 ea 02/26/20 04/18/20 Rx 62.5 mcg-vilant 25 mcg inhalat.powder sucralfate 1 gram tablet 1 g PO DAILY #90 tab 03/17/20 04/18/20 Rx trazodone 100 mg tablet 100 - 300 mg PO HS #90 tab 03/17/20 04/18/20 Rx nystatin 100,000 unit/gram topical 1 appln TOP TID #60 gm 03/21/20 04/18/20 Rx cream methocarbamol 500 mg tablet 1,000 mg PO QID PRN #240 tab 04/08/20 04/18/20 Rx duloxetine 60 mg capsule,delayed 60 mg PO HS #30 cap 04/14/20 04/18/20 Rx release oxcarbazepine 300 mg tablet 300 mg PO BID 30 Days #60 tab 04/14/20 04/18/20 Rx promethazine 12.5 mg tablet 12.5 mg PO Q6H PRN #20 tab 04/17/20 04/18/20 Rx Allergies Allergy/AdvReac Type Severity Reaction Status Date / Time bee pollen Allergy Severe Anaphylaxis Verified 04/18/20 10:00 buprenorphine [From Suboxone] Allergy Severe VOMITTING, Verified 04/18/20 10:00 SKIN PROBLEMS fentanyl Allergy Severe SEVERE Verified 04/18/20 10:00 SEDATION, RESP DEPRESSION Penicillins Allergy Severe ANAPHYLAXIS Verified 04/18/20 10:00 pregabalin Allergy Severe SHORTNESS Verified 04/18/20 10:00 OF BREATH cephalexin Allergy Intermediate SEVERE N/D Verified 04/18/20 10:00 levofloxacin [From Levaquin] Allergy Intermediate CAUSES IBS Verified 04/18/20 10:00 ondansetron [From Zofran] Allergy Intermediate Migraine Verified 04/18/20 10:00 fluticasone Allergy Mild SEVERE Verified 04/18/20 10:00 THRUSH salmeterol Allergy Mild SEVERE Verified 04/18/20 10:00 THRUSH sulfamethoxazole Allergy Mild SEVERE Verified 04/18/20 10:00 NAUSEA Bactrim Allergy Unknown SEVERE Verified 01/30/18 09:22 NAUSEA trimethoprim Allergy Unknown SEVERE Verified 04/18/20 10:00 NAUSEA naloxone [From Suboxone] Allergy Verified 04/18/20 10:00 saccharin [From Sweeta] AdvReac Intermediate SEVERE Verified 04/18/20 10:00 VOMITING ketorolac AdvReac Mild headache Verified 04/18/20 10:00 Duragesic-50 [id number] Allergy Severe SEVERE Uncoded 04/18/20 10:00 SEDATION Ethanol Allergy Severe SEVERE Uncoded 04/18/20 10:00 SEDATION, RESP DEPRESSION Lyrica CAPS Allergy Severe SWELLING/CH Uncoded 04/18/20 10:00 F Adhesive Bandages MISC Allergy Intermediate SKIN Uncoded 04/18/20 10:00 BLISTERS Advair Diskus MISC Allergy Intermediate THRUSH AND Uncoded 04/18/20 10:00 ILL Keflex CAPS Allergy Intermediate SEVERE Uncoded 04/18/20 10:00 NAUSEA/VOMITING Past Med/Surg History Medical History AF (paroxysmal atrial fibrillation) Allergic rhinitis (Chronic) Anemia (Chronic) Anxiety (Chronic) Anxiety Carotid artery narrowing (Chronic) FOLLOWED BY DR. PEÑA Chronic diarrhea Chronic interstitial cystitis COPD (chronic obstructive pulmonary disease) (Chronic) Coronary artery disease (Chronic) Degenerative cervical spinal stenosis (Chronic) Degenerative disc disease Degenerative joint disease of shoulder Depression (Chronic) Dermatitis of both ear canals Diabetic neuropathy (Chronic) Dysfunction of right eustachian tube Esophageal dysphagia (Chronic) Failed back syndrome (Chronic) GERD (gastroesophageal reflux disease) (Chronic) History of OK (myocardial infarction) (2009) History of tremor (Resolved) HX LOW MAGNESIUM Hx of deep venous thrombosis 3 YEARS AGO (REASON FOR ELIQUIS) Hx of thyroid cancer Hx: recurrent pneumonia Hyperlipidemia (Acute) Hypertension (Chronic) Hypothyroidism (acquired) Lumbar disc disease (Chronic) Meralgia paresthetica of right side Mixed hearing loss of right ear Obesity hypoventilation syndrome On anticoagulant therapy (Chronic) On home oxygen therapy (Chronic) 5L/MIN NC HS Osteoarthritis (Chronic) Personal history of pulmonary embolism (2014) REASON FOR ELIQUIS Personal history of skin cancer Psoriatic arthritis Pulsatile tinnitus (Chronic) Thoracic spinal stenosis Type 2 diabetes mellitus (Chronic) Surgical History H/O cataract extraction LEFT/RT History of appendectomy History of back surgery (Inactive) X 5 INCLUDING FUSION History of breast biopsy LEFT (BENIGN) History of cardiac cath X 7 09/2012 NO STENTS History of cervical spinal surgery X 2 (GOOD ROM) History of colonoscopy History of esophagogastroduodenoscopy (EGD) History of knee replacement RT/LEFT History of placement of ear tubes BILAT. History of thyroidectomy, total SECONDARY TO MALIGNANCY S/P section x 2 S/P dilatation and curettage Family History Mother Diabetes Family history of diabetes mellitus Cardiac disorder Heart trouble Myocardial infarction Renal failure Family history of reaction to anesthesia Hypertension Stroke Gallbladder disease Grandfather Family hx of colon cancer Myocardial infarction Father Colon cancer Cardiac disorder Kidney stones Heart trouble Myocardial infarction Degenerative disc disease Lung disease Hypertension Stroke Aunt Colon cancer Grandmother (Maternal) Degenerative disc disease Cancer Sister Diabetes Breast cancer Cancer Hypertension Gallbladder disease Family history of diabetes mellitus Family/Other Kidney disease Brother Multiple sclerosis Uncle Myocardial infarction Grandfather (Maternal) Family history of diabetes mellitus Other Dementia Denies family history of Ovarian cancer Prostate cancer Adverse effect of anesthesia Bleeding disorder Social History Smoking Status: Current every day smoker Cigarettes Per Day: 8 CIG DAILY; Second Hand Exposure: Yes; Do You Dip or Chew Tobacco: No; Tobacco Cessation Education Requested by Patient: No Hx Alcohol Use: No Hx Substance Use: No Preferred Language: Sinhala Communication Ability: Effective Visual Impairment: No Limitations Hearing Ability: Hard of Hearing Carpenter General Required: No Beliefs That Will Affect Care: None marital status: Current Living Situation: Spouse and Family Current Living Situation Comment: SON AND current occupational status: unemployed Feels Safe at Home: Yes Safety Concerns: Feels Safe At This Time Dental Care, Regularly: Yes Physical Activity Frequency: Does not Exercise Physical Activity Frequency Comment: LIMITED BY PHYSICAL CONDITION Seatbelt Use: always Review of Systems 10 system review was performed and was negative except for pertinent positives and negatives as indicated in history of present illness Physical Exam Vital Signs Vital Signs - 24 hr 04/18/20 08:39 04/18/20 09:28 04/18/20 10:41 Temperature 36.4 C L Temperature Source Oral Pulse Rate 66 Pulse Rate [Apical] 68 69 Respiratory Rate 16 20 20 Blood Pressure 221/104 H Blood Pressure [Right Arm] 191/72 H 172/71 H Blood Pressure Mean 143 Blood Pressure Mean [Right Arm] 111 104 Pulse Oximetry 100 98 98 Oxygen Delivery Method Room Air Room Air Room Air Sepsis Recent Fever Within 48 Hours No Sepsis New/Unexplained Change in Mental Status N/A Sepsis Action Taken by Nursing No Action Required 04/18/20 11:43 04/18/20 13:37 Temperature Temperature Source Pulse Rate Pulse Rate [Apical] 66 64 Respiratory Rate 20 20 Blood Pressure Blood Pressure [Right Arm] 192/83 H 165/92 H Blood Pressure Mean Blood Pressure Mean [Right Arm] 119 116 Pulse Oximetry 95 95 Oxygen Delivery Method Room Air Room Air Sepsis Recent Fever Within 48 Hours Sepsis New/Unexplained Change in Mental Status Sepsis Action Taken by Nursing CONSTITUTIONAL: Healthy and well nourished. Patient appears in mild to moderate discomfort with complaint of nausea. HEENT: Normocephalic, atraumatic. Pupils equal, round and reactive. No scleral icterus or conjunctival injection/pallor. NECK: Full active range of motion without discomfort. No nuchal rigidity. No JVD or carotid bruits. LYMPHATICS: No cervical chain adenopathy. RESPIRATORY: Clear to auscultation bilaterally with no wheezing, crackles, rhonchi or stridor. CARDIOVASCULAR: Regular rate and rhythm with no murmurs, rubs or gallops. GASTROINTESTINAL: Bowel sounds present in all quadrants. Patient has generalized upper abdominal tenderness to palpation. No obvious Moore sign. Negative CVA tenderness. Negative McBurney's point tenderness. No rigidity, guarding or rebound. MUSCULOSKELETAL: Full range of motion of all joints without discomfort. INTEGUMENTARY: No rash or other significant dermatologic conditions noted. HEMATOLOGIC: No ecchymosis or petechiae. PSYCHIATRIC: Positive affect. NEUROLOGIC: No focal neurologic deficits noted. Course Course Patient history and physical exam were performed. Nurse's notes were reviewed. Vital signs were reviewed, showing an elevated blood pressure of 161/72. The patient is not tachycardic or hypoxic. She is also afebrile. IV access was established, and labs were drawn. The patient was administered IV morphine and Compazine for pain and nausea. It is noted that the patient reports headaches with Zofran. She also reports additional GI distress/flatulence with Phenergan that was recently prescribed to her from [facility] Donaldson. An ECG showed a normal sinus rhythm without any other acute findings. An abdomen obstruction series shows a few dilated small bowel loops without convincing evidence for obstruction. Abdominal ultrasound shows mild gallbladder distention, otherwise no other acute findings. Review of labs shows a profound hyponatremia of 119. CBC, remaining CMP, lipase, d-dimer and troponin were normal. Urinalysis shows trace hematuria and proteinuria without signs of infection. Magnesium is also low at 1.3 with normal phosphorus and calcium. The patient was administered a second liter of normal saline, and also administered IV magnesium oxide. TSH is 8.02 with normal free T4. Findings were discussed with the patient. The patient was in agreement to hospitalist admission. The case was discussed with Dr. Cope, ED attending physician, who also agrees with hospitalist evaluation. The case was then discu ssed with Dr. Kate, [facility] hospitalist. Please see her dictation for further treatment and final disposition. The patient was administered an additional dose of IV morphine for better pain control. She did report improvement of her nausea. Administered Medications Sodium Chloride (Nss 1000ml) 1,000 mls @ 100 mls/hr IV .Q10H SUZANNE Stop: 04/18/20 21:44 Last Admin: 04/18/20 12:45 Dose: 100 mls/hr Documented by: [id number] Discontinued Medications Sodium Chloride (Nss 1000ml) 1,000 mls @ 999 mls/hr IV .Q1H1M ONE Stop: 04/18/20 10:01 Last Infusion: 04/18/20 10:25 Dose: 0 mls/hr Documented by: [id number] Admin: 04/18/20 09:24 Dose: 999 mls/hr Documented by: [id number] Prochlorperazine (Compazine) 1 mls @ 1 mls/min IV ONE ONE Stop: 04/18/20 09:02 Last Admin: 04/18/20 09:25 Dose: 1 mls/min Documented by: [id number] Sodium Chloride (Nss 1000ml) 1,000 mls @ 999 mls/hr IV .Q1H1M ONE Stop: 04/18/20 11:05 Last Infusion: 04/18/20 11:41 Dose: 0 mls/hr Documented by: [id number] Admin: 04/18/20 10:40 Dose: 999 mls/hr Documented by: [id number] Magnesium Sulfate/Dextrose (Magnesium Sulfate / D5w) 1 gm in 100 mls @ 100 mls/hr IV NOW STA Stop: 04/18/20 12:21 Last Infusion: 04/18/20 12:38 Dose: 0 mls/hr Documented by: [id number] Admin: 04/18/20 11:38 Dose: 100 mls/hr Documented by: [id number] Magnesium Sulfate/Dextrose (Magnesium Sulfate / D5w) 1 gm in 100 mls @ 50 mls/hr IV Q2H STA Stop: 04/18/20 13:42 Last Infusion: 04/18/20 14:45 Dose: 0 mls/hr Documented by: [id number] Admin: 04/18/20 12:45 Dose: 50 mls/hr Documented by: [id number] Morphine Sulfate (Morphine Sulfate) 4 mg IV NOW STA Stop: 04/18/20 09:02 Last Admin: 04/18/20 09:25 Dose: 4 mg Documented by: [id number] Morphine Sulfate (Morphine Sulfate) 4 mg IV NOW STA Stop: 04/18/20 10:53 Last Admin: 04/18/20 11:15 Dose: 4 mg Documented by: [id number] Medical Decision Making Medical Records Attestation: I reviewed the patient's medical records. Home Medications Current Medication List: was personally reviewed by me Laboratory Data Attestation: I reviewed the patient's lab results. Result diagrams: 04/18/20 09:16 04/18/20 11:57 Lab Results 04/18/20 04/18/20 04/18/20 Range/Units 09:16 09:16 09:16 WBC 8.89 (4.8-10.8) K/uL RBC 4.66 (4.2-5.4) M/uL Hgb 13.1 (12.0-16.0) g/dL Hct 39.2 (37-47) % MCV 84.1 (80-100) fL MCH 28.1 (25-34) pg MCHC 33.4 (32-36) g/dL RDW Std Deviation 42.3 (36.4-46.3) fL RDW Coeff of Donald 13.8 (11.5-14.5) % Plt Count 344 (130-400) K/uL MPV 8.9 (7.4-10.4) fL Immature Gran % (Auto) 0.3 % Neut % (Auto) 65.4 % Lymph % (Auto) 24.3 % [place] % (Auto) 7.9 % Eos % (Auto) 1.9 % Baso % (Auto) 0.2 % Neut # (Auto) 5.81 (1.4-6.5) K/uL Lymph # (Auto) 2.16 (1.2-3.4) K/uL [place] # (Auto) 0.70 H (0.11-0.59) K/uL Eos # (Auto) 0.17 (0-0.5) K/uL Baso # (Auto) 0.02 (0-0.2) K/uL Immature Gran # (Auto) 0.03 H (0.00-0.02) K/uL D-Dimer (0-500) ug/L FEU Sodium 119 L* (136-145) mmol/L Potassium 4.0 (3.5-5.1) mmol/L Chloride 84 L (98-107) mmol/L Carbon Dioxide 27 (21-32) mmol/L Anion Gap 8.0 (3-11) BUN 10 (7-18) mg/dl Creatinine 0.69 (0.6-1.2) mg/dl Est Cr Clr Drug Dosing 108.7 ml/min Est GFR ( Amer) 108.9 Est GFR (Non-Af Amer) 94.0 BUN/Creatinine Ratio 14.0 (10-20) Glucose 110 H (70-99) mg/dl Osmolality (280-300) mOsm/kg Calcium 8.5 (8.5-10.1) mg/dl Phosphorus 3.4 (2.5-4.9) mg/dl Magnesium 1.3 L (1.8-2.4) mg/dl Total Bilirubin 0.4 (0.2-1) mg/dl AST 7 L (15-37) U/L ALT 12 (12-78) U/L Alkaline Phosphatase 66 (45-117) U/L Troponin I < 0.015 (0-0.045) ng/ml Total Protein 7.0 (6.4-8.2) gm/dl Albumin 3.3 L (3.4-5.0) gm/dl Globulin 3.7 (2.5-4.0) gm/dl Albumin/Globulin Ratio 0.9 (0.9-2) Lipase 183 (73-393) U/L TSH 8.020 H (0.300-4.500) uIu/ml Free T4 1.00 (0.8-1.6) ng/dl Random Cortisol mcg/dl Urine Color Urine Appearance (Clear) Urine pH (4.5-7.5) Ur Specific Kirvin (1.000-1.030) Urine Protein (Negative) Urine Glucose (UA) (Negative) Urine Ketones (Negative) Urine Blood (Negative) Urine Nitrite (Negative) Urine Bilirubin (Negative) Urine Urobilinogen (Negative) Ur Leukocyte Esterase (Negative) Urine WBC (Auto) (0-5) /hpf Urine RBC (Auto) (0-4) /hpf U Hyaline Cast (Auto) (0-5) /lpf U Epithel Cells (Auto) (0-5) /lpf Urine Bacteria (Auto) (Negative) Urine Osmolality (500-800) mOsm/kg Ur Random Sodium mmol/L 04/18/20 04/18/20 04/18/20 Range/Units 09:16 09:17 09:17 WBC (4.8-10.8) K/uL RBC (4.2-5.4) M/uL Hgb (12.0-16.0) g/dL Hct (37-47) % MCV (80-100) fL MCH (25-34) pg MCHC (32-36) g/dL RDW Std Deviation (36.4-46.3) fL RDW Coeff of Donald (11.5-14.5) % Plt Count (130-400) K/uL MPV (7.4-10.4) fL Immature Gran % (Auto) % Neut % (Auto) % Lymph % (Auto) % [place] % (Auto) % Eos % (Auto) % Baso % (Auto) % Neut # (Auto) (1.4-6.5) K/uL Lymph # (Auto) (1.2-3.4) K/uL [place] # (Auto) (0.11-0.59) K/uL Eos # (Auto) (0-0.5) K/uL Baso # (Auto) (0-0.2) K/uL Immature Gran # (Auto) (0.00-0.02) K/uL D-Dimer 190 (0-500) ug/L FEU Sodium (136-145) mmol/L Potassium (3.5-5.1) mmol/L Chloride (98-107) mmol/L Carbon Dioxide (21-32) mmol/L Anion Gap (3-11) BUN (7-18) mg/dl Creatinine (0.6-1.2) mg/dl Est Cr Clr Drug Dosing ml/min Est GFR ( Amer) Est GFR (Non-Af Amer) BUN/Creatinine Ratio (10-20) Glucose (70-99) mg/dl Osmolality 253 L (280-300) mOsm/kg Calcium (8.5-10.1) mg/dl Phosphorus (2.5-4.9) mg/dl Magnesium (1.8-2.4) mg/dl Total Bilirubin (0.2-1) mg/dl AST (15-37) U/L ALT (12-78) U/L Alkaline Phosphatase (45-117) U/L Troponin I (0-0.045) ng/ml Total Protein (6.4-8.2) gm/dl Albumin (3.4-5.0) gm/dl Globulin (2.5-4.0) gm/dl Albumin/Globulin Ratio (0.9-2) Lipase (73-393) U/L TSH (0.300-4.500) uIu/ml Free T4 (0.8-1.6) ng/dl Random Cortisol mcg/dl Urine Color Yellow Urine Appearance Clear (Clear) Urine pH 5.0 (4.5-7.5) Ur Specific Kirvin 1.026 (1.000-1.030) Urine Protein 2+ H (Negative) Urine Glucose (UA) Negative (Negative) Urine Ketones Negative (Negative) Urine Blood Trace H (Negative) Urine Nitrite Negative (Negative) Urine Bilirubin Negative (Negative) Urine Urobilinogen Negative (Negative) Ur Leukocyte Esterase Negative (Negative) Urine WBC (Auto) 1-5 (0-5) /hpf Urine RBC (Auto) 5-10 H (0-4) /hpf U Hyaline Cast (Auto) 1-5 (0-5) /lpf U Epithel Cells (Auto) >30 H (0-5) /lpf Urine Bacteria (Auto) Negative (Negative) Urine Osmolality (500-800) mOsm/kg Ur Random Sodium mmol/L 04/18/20 04/18/20 04/18/20 Range/Units 09:17 09:17 09:17 WBC (4.8-10.8) K/uL RBC (4.2-5.4) M/uL Hgb (12.0-16.0) g/dL Hct (37-47) % MCV (80-100) fL MCH (25-34) pg MCHC (32-36) g/dL RDW Std Deviation (36.4-46.3) fL RDW Coeff of Donald (11.5-14.5) % Plt Count (130-400) K/uL MPV (7.4-10.4) fL Immature Gran % (Auto) % Neut % (Auto) % Lymph % (Auto) % [place] % (Auto) % Eos % (Auto) % Baso % (Auto) % Neut # (Auto) (1.4-6.5) K/uL Lymph # (Auto) (1.2-3.4) K/uL [place] # (Auto) (0.11-0.59) K/uL Eos # (Auto) (0-0.5) K/uL Baso # (Auto) (0-0.2) K/uL Immature Gran # (Auto) (0.00-0.02) K/uL D-Dimer (0-500) ug/L FEU Sodium (136-145) mmol/L Potassium (3.5-5.1) mmol/L Chloride (98-107) mmol/L Carbon Dioxide (21-32) mmol/L Anion Gap (3-11) BUN (7-18) mg/dl Creatinine (0.6-1.2) mg/dl Est Cr Clr Drug Dosing ml/min Est GFR ( Amer) Est GFR (Non-Af Amer) BUN/Creatinine Ratio (10-20) Glucose (70-99) mg/dl Osmolality (280-300) mOsm/kg Calcium (8.5-10.1) mg/dl Phosphorus (2.5-4.9) mg/dl Magnesium (1.8-2.4) mg/dl Total Bilirubin (0.2-1) mg/dl AST (15-37) U/L ALT (12-78) U/L Alkaline Phosphatase (45-117) U/L Troponin I (0-0.045) ng/ml Total Protein (6.4-8.2) gm/dl Albumin (3.4-5.0) gm/dl Globulin (2.5-4.0) gm/dl Albumin/Globulin Ratio (0.9-2) Lipase (73-393) U/L TSH (0.300-4.500) uIu/ml Free T4 (0.8-1.6) ng/dl Random Cortisol 18.33 mcg/dl Urine Color Urine Appearance (Clear) Urine pH (4.5-7.5) Ur Specific [place]vin (1.000-1.030) Urine Protein (Negative) Urine Glucose (UA) (Negative) Urine Ketones (Negative) Urine Blood (Negative) Urine Nitrite (Negative) Urine Bilirubin (Negative) Urine Urobilinogen (Negative) Ur Leukocyte Esterase (Negative) Urine WBC (Auto) (0-5) /hpf Urine RBC (Auto) (0-4) /hpf U Hyaline Cast (Auto) (0-5) /lpf U Epithel Cells (Auto) (0-5) /lpf Urine Bacteria (Auto) (Negative) Urine Osmolality 516 (500-800) mOsm/kg Ur Random Sodium 54 mmol/L 04/18/20 Range/Units 11:57 WBC (4.8-10.8) K/uL RBC (4.2-5.4) M/uL Hgb (12.0-16.0) g/dL Hct (37-47) % MCV (80-100) fL MCH (25-34) pg MCHC (32-36) g/dL RDW Std Deviation (36.4-46.3) fL RDW Coeff of Donald (11.5-14.5) % Plt Count (130-400) K/uL MPV (7.4-10.4) fL Immature Gran % (Auto) % Neut % (Auto) % Lymph % (Auto) % [place] % (Auto) % Eos % (Auto) % Baso % (Auto) % Neut # (Auto) (1.4-6.5) K/uL Lymph # (Auto) (1.2-3.4) K/uL [place] # (Auto) (0.11-0.59) K/uL Eos # (Auto) (0-0.5) K/uL Baso # (Auto) (0-0.2) K/uL Immature Gran # (Auto) (0.00-0.02) K/uL D-Dimer (0-500) ug/L FEU Sodium 122 L (136-145) mmol/L Potassium 4.3 (3.5-5.1) mmol/L Chloride 90 L (98-107) mmol/L Carbon Dioxide 27 (21-32) mmol/L Anion Gap 6.0 (3-11) BUN 9 (7-18) mg/dl Creatinine 0.60 (0.6-1.2) mg/dl Est Cr Clr Drug Dosing 125.0 ml/min Est GFR ( Amer) 114.0 Est GFR (Non-Af Amer) 98.4 BUN/Creatinine Ratio 14.3 (10-20) Glucose 116 H (70-99) mg/dl Osmolality (280-300) mOsm/kg Calcium 8.0 L (8.5-10.1) mg/dl Phosphorus (2.5-4.9) mg/dl Magnesium (1.8-2.4) mg/dl Total Bilirubin (0.2-1) mg/dl AST (15-37) U/L ALT (12-78) U/L Alkaline Phosphatase (45-117) U/L Troponin I (0-0.045) ng/ml Total Protein (6.4-8.2) gm/dl Albumin (3.4-5.0) gm/dl Globulin (2.5-4.0) gm/dl Albumin/Globulin Ratio (0.9-2) Lipase (73-393) U/L TSH (0.300-4.500) uIu/ml Free T4 (0.8-1.6) ng/dl Random Cortisol mcg/dl Urine Color Urine Appearance (Clear) Urine pH (4.5-7.5) Ur Specific [place]vin (1.000-1.030) Urine Protein (Negative) Urine Glucose (UA) (Negative) Urine Ketones (Negative) Urine Blood (Negative) Urine Nitrite (Negative) Urine Bilirubin (Negative) Urine Urobilinogen (Negative) Ur Leukocyte Esterase (Negative) Urine WBC (Auto) (0-5) /hpf Urine RBC (Auto) (0-4) /hpf U Hyaline Cast (Auto) (0-5) /lpf U Epithel Cells (Auto) (0-5) /lpf Urine Bacteria (Auto) (Negative) Urine Osmolality (500-800) mOsm/kg Ur Random Sodium mmol/L Imaging Data Attestation: I personally reviewed and interpreted this imaging study as follows: My Impression: Limited abdominal ultrasound shows mild gallbladder distention without obvious gallstones, gallbladder wall thickening, common bile duct dilatation or other acute findings. My interpretation of an abdomen obstruction series with a PA chest view shows a few dilated small bowel loops without convincing evidence for obstruction. No other lung consolidations, pneumothorax or cardiac prominence noted. Radiologist reports were reviewed. Radiologist's Impression: ABDOMINAL ULTRASOUND, RIGHT UPPER QUADRANT HISTORY: Upper abd pain, chronic diarrhea. COMPARISON: None. FINDINGS: No hepatic lesions are identified. There is no biliary ductal dilatation. The common bile duct measures 3 mm in caliber. Gallbladder is mildly distended. No gallstones are identified. There is no gallbladder wall thicken ing. There was no sonographic Moore sign. Pancreatic body is normal. Head and tail are obscured. There is no right hydronephrosis. IMPRESSION: No gallstones or biliary ductal dilatation. Mild gallbladder distention. No evidence for acute cholecystitis. PA CHEST RADIOGRAPH AND UPRIGHT AND SUPINE AP RADIOGRAPHS OF THE ABDOMEN CLINICAL HISTORY: Upper abdominal pain. COMPARISON STUDY: Chest radiograph September 24, 2019. FINDINGS: Incidental note is made of a cervical spine fusion. There is no pneumothorax or pleural effusion. There is no consolidation or evidence for pulmonary edema. There is mild cardiomegaly. A right cardiophrenic angle density is unchanged since exam of January 30, 2018. This could reflect eventration of the hemidiaphragm or a Morgagni hernia. There is no free air. Several loops of mildly dilated small bowel are noted. There is no convincing evidence for a small bowel obstruction. There is gas within portions of the colon and rectum. Levoscoliosis of the lumbar spine is incidentally noted. IMPRESSION: 1. No free air. 2. A few loops of mildly dilated small bowel without convincing evidence for a small bowel obstruction. 3. No acute cardiopulmonary findings. ECG Data Attestation: I personally reviewed and interpreted this ECG as follows: Rate (beats per minute): 68 Rhythm: + normal sinus ECG Intervals/blocks: + Normal QRS and + Normal TN ECG [place]: + Normal Comparison ECG Date: from (05/13/2018) Change: no significant change Blood Pressure Blood Pressure Findings: Normal blood pressure MDM Narrative Patient presents to the emergency department with primary complaint of epigastric pain radiating into the back. She has also had chronic diarrhea for the past 3 months. She has been evaluated by her PCP and gastroenterology. Work-up today does show a profound hyponatremia. Potassium is normal. She does have a hypomagnesemia as well, and was repleted while in the emergency department. The patient was also hydrated with 2 L of normal saline. The patient does not have any confusion, headaches or other acute neurologic findings on today's exam. ECG and troponin are normal, therefore I do not suspect acute cardiac etiology. D-dimer is also normal, therefore I do not suspect pulmonary embolus. The patient is not anemic. The patient does have a history of hypothyroidism, and does have an elevated TSH with normal free T4. Urinalysis is not consistent with infection. X-rays today does not show evidenc e for obvious bowel obstruction, pneumonia, pneumothorax or cardiomegaly. Physical exam is not consistent with appendicitis or diverticulitis. No obvious ureteral or renal calculi are noted on x-ray, but was also considered as well. Urinalysis does not show evidence for UTI. Impression & Plan Acute hyponatremia, Chronic diarrhea, Hypomagnesemia, Acute epigastric pain Discharge Plan Visit Data Chief Complaint: Abdominal Pain Stated Complaint: DIARRHEA,NAUSEA,UPPER ABD PAIN INTO BACK ED Provider: Tiago Cope ED Midlevel Provider: Sameer Lloyd Discharge Problem: Acute hyponatremia, Chronic diarrhea, Hypomagnesemia, Acute epigastric pain Forms Stand Alone Forms: My [facility] [place] [employer] Prescriptions Prescriptions: No Action pravastatin 20 mg tablet 20 mg PO HS Qty: 90 RF: 3 (DME) Scooter Misc See Dose Instructions .ROUTE .MEDSUPPLY Qty: 1 RF: 0 metformin 1,000 mg tablet 1,000 mg PO BID Qty: 180 RF: 3 mupirocin 2 % ointment 1 appln TOP TID Qty: 22 RF: 2 cyanocobalamin (vitamin B-12) 500 mcg tablet 1,000 mcg PO DAILY Qty: 60 RF: 5 fluocinolone acetonide oil [DermOtic Oil] 0.01 % drops 5 drops OT BID 7 Days Qty: 20 RF: 0 (DME) Hospital Bed Mis See Rx Instructions .ROUTE .MEDSUPPLY Qty: 1 RF: 0 gabapentin 800 mg tablet 800 mg PO .COMPLEX Qty: 105 RF: 5 levocetirizine 5 mg tablet 5 mg PO HS Qty: 30 RF: 5 buspirone 10 mg tablet 10 mg PO BID Qty: 60 RF: 5 magnesium oxide 400 mg magnesium tablet 400 mg PO BID Qty: 60 RF: 5 hydroxyzine pamoate [Vistaril] 25 mg capsule 25 mg PO TID PRN (Reason: Anxiety) Qty: 60 RF: 5 folic acid 1 mg tablet 1 mg PO DAILY Qty: 30 RF: 5 levothyroxine 200 mcg tablet 200 mcg PO 6XWK Qty: 90 RF: 1 esomeprazole magnesium 40 mg capsule,delayed release(DR/EC) 40 mg PO BID Qty: 180 RF: 1 ferrous sulfate 325 mg (65 mg iron) tablet 325 mg PO BID Qty: 60 RF: 5 duloxetine [Cymbalta] 30 mg capsule,delayed release(DR/EC) 30 mg PO QAM Qty: 30 RF: 5 montelukast [Singulair] 10 mg tablet 10 mg PO DAILY PRN (Reason: allergy symptoms) Qty: 30 RF: 5 Trelegy Ellipta 100-62.5-25 mcg blister with device 1 puffs INH DAILY Qty: 60 RF: 3 sucralfate [Carafate] 1 gram tablet 1 g PO DAILY Qty: 90 RF: 1 trazodone 100 mg tablet 100 - 300 mg PO HS Qty: 90 RF: 1 nystatin 100,000 unit/gram cream 1 appln TOP TID Qty: 60 RF: 1 methocarbamol 500 mg tablet 1,000 mg PO QID PRN (Reason: pain) Qty: 240 RF: 0 oxcarbazepine 300 mg tablet 300 mg PO BID 30 Days Qty: 60 RF: 0 duloxetine [Cymbalta] 60 mg capsule,delayed release(DR/EC) 60 mg PO HS Qty: 30 RF: 5 promethazine 12.5 mg tablet 12.5 mg PO Q6H PRN (Reason: nausea and vomiting) Qty: 20 RF: 0 Eliquis 5 mg tablet 5 mg PO BID Qty: 60 RF: 6 (DME) OneTouch Ultra Blue Test Strip strip See Dose Instructions .ROUTE .MEDSUPPLY Qty: 100 RF: 5 cholecalciferol (vitamin D3) 1,000 unit capsule 1,000 units PO DAILY Qty: 30 RF: 5 (DME) lancets [OneTouch Delica Lancets] 30 gauge misc See Dose Instructions .ROUTE .MEDSUPPLY Qty: 200 RF: 4 nitroglycerin [Nitrostat] 0.4 mg tablet, sublingual 0.4 mg Sublingual UD PRN (Reason: Pain) Qty: 30 RF: 5 (DME) Oxygen Home Liters Per Minute See Dose Instructions .ROUTE .MEDSUPPLY Qty: 1 RF: 0 albuterol sulfate 90 mcg/actuation HFA aerosol inhaler 2 puff INHALATION Q6H PRN (Reason: Wheezing) Qty: 18 RF: 5 albuterol sulfate 2.5 mg/0.5 mL solution for nebulization 2.5 mg INHALATION QID PRN (Reason: Wheezing) Qty: 30 RF: 5 clobetasol 0.05 % lotion 1 appln TOP BID PRN (Reason: itching) 14 Days Qty: 59 RF: 3 nystatin 100,000 unit/mL suspension 200,000 units BUCCAL QID PRN (Reason: Thrush) 10 Days Qty: 80 RF: 0 metoprolol succinate 25 mg tablet extended release 24 hr 25 mg PO BID Qty: 60 RF: 5 Hold Instructions: hypotensive
[2020-04-18 09:31] LABS: Basophils # (auto) 0.02 K/uL (0-0.2); Basophils % (auto) 0.2 %; Eosinophils # (auto) 0.17 K/uL (0-0.5); Eosinophils % (auto) 1.9 %; Hematocrit (blood only) 39.2 % (37-47); Hemoglobin 13.1 g/dL (12.0-16.0); Immature Granulocytes # (auto) 0.03 K/uL (0.00-0.02); Immature Granulocytes % (auto) 0.3 %; Lymphocytes # (auto) 2.16 K/uL (1.2-3.4); Lymphocytes % (auto) 24.3 %; Mean Corpuscular Hemoglobin 28.1 pg (25-34); Mean Corpuscular Hgb Conc 33.4 g/dL (32-36); Mean Corpuscular Volume 84.1 fL (80-100); Mean Platelet Volume 8.9 fL (7.4-10.4); Monocytes % (auto) 7.9 %; Neutrophils # (auto) 5.81 K/uL (1.4-6.5); Neutrophils % (auto) 65.4 %; Platelet Count 344 K/uL (130-400); RDW Coefficient of Variation 13.8 % (11.5-14.5); RDW Standard Deviation 42.3 fL (36.4-46.3); Red Blood Count 4.66 M/uL (4.2-5.4); White Blood Count 8.89 K/uL (4.8-10.8)
[2020-04-18 09:47] LABS: Appearance Urine Clear (Clear); Bacteria Urine Automated Negative (Negative); Bilirubin Urine Negative (Negative); Blood Urine Trace (Negative); Color Urine Yellow; Epithelial Cell Urine Auto >30 /lpf (0-5); Glucose Urine UA Negative (Negative); Ketones Urine Negative (Negative); Leukocyte Esterase Urine Negative (Negative); Nitrite Urine Negative (Negative); Protein Urine 2+ (Negative); Specific Gravity Urine 1.026 (1.000-1.030); Urobilinogen Urine Negative (Negative)
[2020-04-18 09:58] LABS: Alanine Aminotransferase 12 U/L (12-78); Albumin Globulin Ratio 0.9 (0.9-2); Albumin Level 3.3 gm/dl (3.4-5.0); Alkaline Phosphatase 66 U/L (45-117); Aspartate Aminotransferase 7 U/L (15-37); Bilirubin,Total 0.4 mg/dl (0.2-1); Blood Urea Nitrogen 10 mg/dl (7-18); Calcium 8.5 mg/dl (8.5-10.1); Carbon Dioxide 27 mmol/L (21-32); Chloride 84 mmol/L (98-107); Creatinine Clr Calc Pharmacy 108.7 ml/min; Est GFR (African American) 108.9; Globulin 3.7 gm/dl (2.5-4.0); Glucose 110 mg/dl (70-99); Lipase 183 U/L (73-393); Sodium 119 mmol/L (136-145); Troponin I < 0.015 ng/ml (0-0.045)
--- NOTE | 2020-04-18 10:25 | Ultrasound Report ---
ABDOMINAL ULTRASOUND, RIGHT UPPER QUADRANT HISTORY: Upper abd pain, chronic diarrhea. COMPARISON: None. FINDINGS: No hepatic lesions are identified. There is no biliary ductal dilatation. The common bile d uct measures 3 mm in caliber. Gallbladder is mildly distended. No gallstones are identified. There is no gallbladder wall thickening. There was no sonographic Moore sign. Pancreatic body is normal. Hea d and tail are obscured. There is no right hydronephrosis. IMPRESSION: No gallstones or biliary ductal dilatation. Mild gallbladder distention. No evidence for acute cholec ystitis. ACT 112: Negative or not required by law. Electronically signed by: Mejia Wadsworth M.D. 04/18/2020 10:24 AM
--- NOTE | 2020-04-18 10:35 | XRay Report ---
PA CHEST RADIOGRAPH AND UPRIGHT AND SUPINE AP RADIOGRAPHS OF THE ABDOMEN CLINICAL HISTORY: Upper abdominal pain. COMPARISON STUDY: Chest radiograph September 24, 2019. FINDINGS: Incidental note is made of a cervical spine fusion. There is no pneumothorax or pleural ef fusion. There is no consolidation or evidence for pulmonary edema. There is mild cardiomegaly. A righ t cardiophrenic angle density is unchanged since exam of January 30, 2018. This could reflect eventration of the hemidiaphragm or a Morgagni hernia. There is no free air. Several loops of mildly dilated sma ll bowel are noted. There is no convincing evidence for a small bowel obstruction. There is gas withi n portions of the colon and rectum. Levoscoliosis of the lumbar spine is incidentally noted. IMPRESSION: 1. No free air. 2. A few loops of mildly dilated small bowel without convincing evidence for a small bowel obstructio n. 3. No acute cardiopulmonary findings. ACT 112: Negative or not required by law. Electronically signed by: Mejia Wadsworth M.D. 04/18/2020 10:34 AM
[2020-04-18 10:46] LABS: D Dimer 190 ug/L FEU (0-500)
--- NOTE | 2020-04-18 10:57 | History & Physical Report ---
Date of Service April 18, 2020 Assessment & Plan (1) Acute hyponatremia: Presented with epigastric abdominal pain and nausea with dry heaving in the setting of diarrhea x3 months. With poor p.o. intake the last 2 days prior to admission. Was also started on oxcarbazepine in the last 2 months. Baseline sodium is normal at 137 in 06/2019 All of her other medications have been chronic except for the oxcarbazepine which is new. Suspect her hyponatremia is all from hypovolemia and poor p.o. intake in the setting of diarrhea Serum osmolality low at 253 Urine osmolality 516, urine sodium 54, random cortisol albeit in the morning was normal at 18, and TSH is elevated at 8.02 Suspect her hyponatremia is a combination of SIADH as she is on multiple medications which could cause SIADH, most notably the oxcarbazepine which was a new drug recently, in addition to hypothyroidism, and some due to dehydration and GI losses. She is a heavy smoker and is complaining of a headache-she could have pulmonary or intracranial lesions contributing to SIADH. -Admit to medical floor with telemetry -Received 2 L normal saline in the ER, will continue 1 L of normal saline at 100 mL's per hour -Serial BMP every 4 hours to follow sodium-do not want a raise it more than 6- 12/24 hours -Adjust fluids as needed based on sodium levels -Increase levothyroxine dose to 200 mcg daily up from 200 mcg on 6 days of the week -Find cause of her diarrhea-suspect the recent epigastric abdominal pain and nausea is secondary to severe dehydration and hyponatremia -Check CT of the head given headaches to rule out intracranial lesion -Check CT of the chest to rule out pulmonary mass as cause of SIADH -Hold her home oxcarbazepine for now and monitor for withdrawal symptoms-may be able to restart tomorrow if hyponatremia improving (2) Acute epigastric pain: Likely secondary to severe dehydration, hyponatremia, dry heaves She has normal LFTs, right upper quadrant ultrasound is normal -Hydrating with IV fluids as above and will see if this improves it -Continue PPI and Carafate as before -Add on low-dose Phenergan as needed for nausea as she is allergic to Zofran -Hold home ferrous sulfate as this can worsen nausea -Consulting GI to see if needs upper endoscopy (3) Hypomagnesemia: Magnesium severely low at 1.3, likely secondary to GI losses -Replace with 3 g total of IV magnesium -Follow level in the morning (4) Chronic diarrhea: Diarrhea ongoing for the last 3 months, 2-10 times per day, nonbloody. With associated lower abdominal chronic pain She is not anemic. No fevers or chills She saw GI for the first time on 04/02 and was scheduled for colonoscopy I do not see that any stool studies have ever been done. Reports that fiber supplements made her constipated and that Imodium helped --Check C. difficile and stool culture with next stool sample -Consult GI for further opinion -Will check routine COVID-19 test that she was supposed to have done today anywa y for pre-colonoscopy screening for this coming Tuesday (5) AF (paroxysmal atrial fibrillation): With a history of paroxysmal atrial fibrillation mentioned after a TIA in 2013 and old cardiology records, but none noted on EKGs since then in our records - is on Eliquis and metoprolol In normal sinus rhythm here Monitor on telemetry (6) Obesity hypoventilation syndrome: Follows with pulmonology, Dr. Chan -Continue nocturnal O2 Is awaiting outpatient sleep study to get qualified for CPAP/BiPAP (7) Hypothyroidism (acquired): TSH elevated here as above at 8 -Increasing levothyroxine to 200 mcg every day as opposed to just 6 days a week -Follow-up TSH in 4 to 6 weeks (8) Hypertension: Blood pressures are elevated here -Continue home metoprolol succinate 25 mg p.o. twice daily (9) GERD (gastroesophageal reflux disease): Continue home PPI and Carafate (10) COPD (chronic obstructive pulmonary disease): Follows with pulmonology No acute issues -Continue home inhalers, and albuterol as needed Continue Singulair (11) Allergic rhinitis: Continue Singulair (12) Type 2 diabetes mellitus: Is on metformin at home Last hemoglobin A1c was 5.8% in 06/2018 -Hold metformin here -Give NovoLog sliding scale with meals Check Accu-Cheks before meals and at bedtime -Check hemoglobin A1c in the morning (13) Diabetic neuropathy: Continue home gabapentin, Cymbalta (14) Coronary artery disease: Cardiology records note that she has nonobstructive CAD based on catheterization in 2012 No ischemic changes on ECG here, no chest pain -Continue metoprolol, statin, apixaban (15) Carotid artery narrowing: Noted in chart Follows with cardiology Continue home apixaban and statin (16) Anxiety: Stable -Continue home trazodone, Cymbalta, buspirone (17) Depression: Stable, meds as above (18) Meralgia paresthetica of right side: Holding home oxcarbazepine for hyponatremia as above (19) Psoriatic arthritis: Noted in chart Is not on medications for this (20) On home oxygen therapy: Uses 5 L at bedtime (21) Hyperlipidemia: Continue statin (22) Osteoarthritis: Tylenol as needed for pain (23) DVT prophylaxis: Eliquis Disposition-admit to medical floor with telemetry for severe hyponatremia, nausea and diarrhea History of Present Illness Chief Complaint: Abdominal pain, nausea, diarrhea Primary Care Provider: Gerda Johnson DO This patient is a 59-year-old female with a history of PAF on Eliquis, recurrent DVT/PE x4, depression/anxiety, obesity hypoventilation syndrome on 5 L nasal cannula nightly, hypothyroidism status post subtotal thyroidectomy for malignancy, psoriatic arthritis, hyperlipidemia, HTN, GERD, COPD, DM 2 with neuropathy, CAD, failed back syndrome, carotid artery stenosis, and meralgia paresthetica, who presents to the ER with upper abdominal pain and nausea with dry heaving for the last 2 days. She has been having diarrhea for the last 3 months and has been following with GI. Her diarrhea comes on anywhere from 2-10 times a day and is nonbloody. Because of the diarrhea, she was scheduled to have a colonoscopy this coming Tuesday. She then developed upper abdominal pain in addition to her chronic lower abdominal pain with diarrhea 2 days ago that has been constant. She has been having nausea and dry heaves but nothing is coming up and she has not been able to drink or eat much of anything in the last 2 days. The pain is moderate in severity, has improved with morphine. She denies any fevers. She has had a headache off and on for the last week that is moderate in nature across the top of her head. She was started on oxcarbazepine for her meralgia paresthetica in January 2020 and had the dose increased in February 2020-this is the only new medication she has had since February. In the ER, she was found to be severely hyponatremic with a sodium of 119. Her LFTs were normal, CBC was normal, and a right upper quadrant ultrasound was normal. An acute abdominal series was obtained and showed no free air, a few loops of mildly dilated small bowel without convincing evidence for bowel obstruction, and a right cardiophrenic angle density that could reflect eventration of the hemidiaphragm or a Morgagni hernia. She was given 2 L of normal saline, IV Compazine, and IV morphine and felt much improved. Allergies Allergy/AdvReac Type Severity Reaction Status Date / Time bee pollen Allergy Severe Anaphylaxis Verified 04/18/20 10:00 buprenorphine [From Suboxone] Allergy Severe VOMITTING, Verified 04/18/20 10:00 SKIN PROBLEMS fentanyl Allergy Severe SEVERE Verified 04/18/20 10:00 SEDATION, RESP DEPRESSION Penicillins Allergy Severe ANAPHYLAXIS Verified 04/18/20 10:00 pregabalin Allergy Severe SHORTNESS Verified 04/18/20 10:00 OF BREATH adhesive Allergy Intermediate Blister Verified 04/18/20 18:11 cephalexin Allergy Intermediate Nausea Verified 04/18/20 18:15 levofloxacin [From Levaquin] Allergy Intermediate CAUSES IBS Verified 04/18/20 10:00 ondansetron [From Zofran] Allergy Intermediate Migraine Verified 04/18/20 10:00 fluticasone Allergy Mild SEVERE Verified 04/18/20 10:00 THRUSH salmeterol Allergy Mild SEVERE Verified 04/18/20 10:00 THRUSH sulfamethoxazole Allergy Mild SEVERE Verified 04/18/20 10:00 NAUSEA Bactrim Allergy Unknown SEVERE Verified 01/30/18 09:22 NAUSEA naloxone [From Suboxone] Allergy Unknown Unknown Verified 04/18/20 18:10 trimethoprim Allergy Unknown SEVERE Verified 04/18/20 10:00 NAUSEA saccharin [From Sweeta] AdvReac Intermediate SEVERE Verified 04/18/20 10:00 VOMITING ketorolac AdvReac Mild headache Verified 04/18/20 10:00 Home Medications Home Medications Medication Instructions Recorded Confirmed Type Oxygen Home #1 ea 03/20/19 04/18/20 Rx apixaban 5 mg tablet 5 mg PO BID #60 tab 03/20/19 04/18/20 Rx blood sugar diagnostic #100 ea 03/20/19 04/18/20 Rx cholecalciferol (vitamin D3) 25 1,000 units PO DAILY #30 cap 03/20/19 04/18/20 Rx mcg (1,000 unit) capsule lancets 30 gauge #200 ea 03/20/19 04/18/20 Rx nitroglycerin 0.4 mg sublingual 0.4 mg SUBLINGUAL UD PRN #30 tab 03/20/19 04/18/20 Rx tablet pravastatin 20 mg tablet 20 mg PO HS #90 tab 04/30/19 04/18/20 Rx miscellaneous medical supply #1 ea 05/14/19 04/18/20 Rx metformin 1,000 mg tablet 1,000 mg PO BID #180 tab 06/08/19 04/18/20 Rx nystatin 100,000 unit/mL oral 200,000 units BUCCAL QID PRN 10 07/12/19 04/18/20 Rx suspension Days #80 ml albuterol sulfate 2.5 mg/0.5 mL 2.5 mg INHALATION QID PRN #30 ea 09/13/19 04/18/20 Rx solution for nebulization albuterol sulfate 90 mcg/actuation 2 puff INHALATION Q6H PRN #18 gm 09/13/19 04/18/20 Rx aerosol inhaler mupirocin 2 % topical ointment 1 appln TOP TID #22 gm 09/26/19 04/18/20 Rx cyanocobalamin (vitamin B-12) 500 1,000 mcg PO DAILY #60 tab 10/15/19 04/18/20 Rx mcg tablet clobetasol 0.05 % lotion 1 appln TOP BID PRN 14 Days #59 ml 10/16/19 04/18/20 Rx fluocinolone acetonide oil 0.01 % 5 drops OT BID 7 Days #20 ml 10/22/19 04/18/20 Rx ear drops miscellaneous medical supply #1 ea 11/14/19 04/18/20 Rx gabapentin 800 mg tablet 800 mg PO .COMPLEX #105 tab 12/10/19 04/18/20 Rx levocetirizine 5 mg tablet 5 mg PO HS #30 tab 12/10/19 04/18/20 Rx buspirone 10 mg tablet 10 mg PO BID #60 tab 12/12/19 04/18/20 Rx magnesium oxide 400 mg PO BID #60 tab 12/26/19 04/18/20 Rx hydroxyzine pamoate 25 mg capsule 25 mg PO TID PRN #60 cap 01/14/20 04/18/20 Rx folic acid 1 mg tablet 1 mg PO DAILY #30 tab 01/16/20 04/18/20 Rx metoprolol succinate 25 mg 25 mg PO BID #60 tab 01/22/20 04/18/20 Rx tablet,extended release 24 hr levothyroxine 200 mcg tablet 200 mcg PO 6XWK #90 tab 01/23/20 04/18/20 Rx esomeprazole magnesium 40 mg 40 mg PO BID #180 cap 01/29/20 04/18/20 Rx capsule,delayed release ferrous sulfate 325 mg (65 mg 325 mg PO BID #60 tab 02/06/20 04/18/20 Rx iron) tablet duloxetine 30 mg capsule,delayed 30 mg PO QAM #30 cap 02/15/20 04/18/20 Rx release montelukast 10 mg tablet 10 mg PO DAILY PRN #30 tab 02/20/20 04/18/20 Rx fluticasone fur. 100 mcg-umeclid 1 puffs INH DAILY #60 ea 02/26/20 04/18/20 Rx 62.5 mcg-vilant 25 mcg inhalat.powder sucralfate 1 gram tablet 1 g PO DAILY #90 tab 03/17/20 04/18/20 Rx trazodone 100 mg tablet 100 - 300 mg PO HS #90 tab 03/17/20 04/18/20 Rx nystatin 100,000 unit/gram topical 1 appln TOP TID #60 gm 03/21/20 04/18/20 Rx cream methocarbamol 500 mg tablet 1,000 mg PO QID PRN #240 tab 04/08/20 04/18/20 Rx duloxetine 60 mg capsule,delayed 60 mg PO HS #30 cap 04/14/20 04/18/20 Rx release oxcarbazepine 300 mg tablet 300 mg PO BID 30 Days #60 tab 04/14/20 04/18/20 Rx promethazine 12.5 mg tablet 12.5 mg PO Q6H PRN #20 tab 04/17/20 04/18/20 Rx Past Med/Surg History Medical History AF (paroxysmal atrial fibrillation) Allergic rhinitis (Chronic) Anemia (Chronic) Anxiety (Chronic) Anxiety Carotid artery narrowing (Chronic) FOLLOWED BY DR. PEÑA Chronic diarrhea Chronic interstitial cystitis COPD (chronic obstructive pulmonary disease) (Chronic) Coronary artery disease (Chronic) Degenerative cervical spinal stenosis (Chronic) Degenerative disc disease Degenerative joint disease of shoulder Depression (Chronic) Dermatitis of both ear canals Diabetic neuropathy (Chronic) Dysfunction of right eustachian tube Esophageal dysphagia (Chronic) Failed back syndrome (Chronic) GERD (gastroesophageal reflux disease) (Chronic) History of MS (myocardial infarction) (2010) History of tremor (Resolved) HX LOW MAGNESIUM Hx of deep venous thrombosis 3 YEARS AGO (REASON FOR ELIQUIS) Hx of thyroid cancer Hx: recurrent pneumonia Hyperlipidemia (Acute) Hypertension (Chronic) Hypothyroidism (acquired) Lumbar disc disease (Chronic) Meralgia paresthetica of right side Mixed hearing loss of right ear Obesity hypoventilation syndrome On anticoagulant therapy (Chronic) On home oxygen therapy (Chronic) 5L/MIN NC HS Osteoarthritis (Chronic) Personal history of pulmonary embolism (2014) REASON FOR ELIQUIS Personal history of skin cancer Psoriatic arthritis Pulsatile tinnitus (Chronic) Thoracic spinal stenosis Type 2 diabetes mellitus (Chronic) Surgical History H/O cataract extraction LEFT/RT History of appendectomy History of back surgery (Inactive) X 5 INCLUDING FUSION History of breast biopsy LEFT (BENIGN) History of cardiac cath X 7 09/2012 NO STENTS History of cervical spinal surgery X 2 (GOOD ROM) History of colonoscopy History of esophagogastroduodenoscopy (EGD) History of knee replacement RT/LEFT History of placement of ear tubes BILAT. History of thyroidectomy, total SECONDARY TO MALIGNANCY S/P section x 2 S/P dilatation and curettage Family History Mother Diabetes Family history of diabetes mellitus Cardiac disorder Heart trouble Myocardial infarction Renal failure Family history of reaction to anesthesia Hypertension Stroke Gallbladder disease Grandfather Family hx of colon cancer Myocardial infarction Father Colon cancer Cardiac disorder Kidney stones Heart trouble Myocardial infarction Degenerative disc disease Lung disease Hypertension Stroke Aunt Colon cancer Grandmother (Maternal) Degenerative disc disease Cancer Sister Diabetes Breast cancer Cancer Hypertension Gallbladder disease Family history of diabetes mellitus Family/Other Kidney disease Brother Multiple sclerosis Uncle Myocardial infarction Grandfather (Maternal) Family history of diabetes mellitus Other Dementia Denies family history of Ovarian cancer Prostate cancer Adverse effect of anesthesia Bleeding disorder Social History Smoking Status: Current every day smoker Cigarettes Per Day: 1/2 pack a day; Second Hand Exposure: Yes; Do You Dip or Chew Tobacco: No; Tobacco Cessation Education Requested by Patient: No Hx Alcohol Use: No Hx Substance Use: No Preferred Language: [place] Communication Ability: Effective Visual Impairment: No Limitations Hearing Ability: Hard of Hearing Wrap Checker Required: No Beliefs That Will Affect Care: None marital status: Current Living Situation: Spouse and Family Current Living Situation Comment: SON AND current occupational status: unemployed Other Information That Helps Us Care for You: No Feels Safe at Home: Yes Safety Concerns: Feels Safe At This Time Dental Care, Regularly: Yes Physical Activity Frequency: Does not Exercise Physical Activity Frequency Comment: LIMITED BY PHYSICAL CONDITION Seatbelt Use: always Review of Systems Review of Systems: All systems reviewed & are unremarkable except as noted in HPI & below Physical Exam Constitutional: WD/WN, vitals as above + morbidly obese Eyes: PERRL, conjunctivae normal, anicteric sclerae ENMT: external ear and nose normal, oropharynx normal Neck: trachea midline, no thyromegaly Respiratory: normal respiratory effort, lungs clear to auscultation Cardiovascular: RRR, no murmur, no edema Chest (Breasts): Chest: normal inspection of chest Gastrointestinal (Abdomen): normal bowel sounds, soft, nontender, no hepatosplenomegaly Musculoskeletal: Extremities: extremities normal to inspection; no cyanosis and no clubbing Skin: no rashes, warm and dry Neurologic: PERRL, EOMI, accommodation nl, no face palsy, no dysarthria CN's II-XI intact bilaterally, moves all extremities and awake; no focal motor deficits Motor/Sensory: no tremor and no sensory deficit Psychiatric: A+Ox3, euthymic affect Lymphatic: no lymphedema Results & Data Results & Data ([facility]) Vital Signs (Past 12 Hours) Vital Signs Temp Pulse Pulse Resp BP BP Pulse Ox 04/18/20 10:41 69 20 172/71 H 98 04/18/20 09:28 68 20 191/72 H 98 04/18/20 08:39 36.4 C L 66 16 221/104 H 100 Laboratory Results 04/18/20 04/18/20 04/18/20 Range/Units 09:17 09:17 09:16 WBC (4.8-10.8) K/uL RBC (4.2-5.4) M/uL Hgb (12.0-16.0) g/dL Hct (37-47) % MCV (80-100) fL MCH (25-34) pg MCHC (32-36) g/dL RDW Std Deviation (36.4-46.3) fL RDW Coeff of Donald (11.5-14.5) % Plt Count (130-400) K/uL MPV (7.4-10.4) fL Immature Gran % (Auto) % Neut % (Auto) % Lymph % (Auto) % Dolores % (Auto) % Eos % (Auto) % Baso % (Auto) % Neut # (Auto) (1.4-6.5) K/uL Lymph # (Auto) (1.2-3.4) K/uL Dolores # (Auto) (0.11-0.59) K/uL Eos # (Auto) (0-0.5) K/uL Baso # (Auto) (0-0.2) K/uL Immature Gran # (Auto) (0.00-0.02) K/uL D-Dimer 190 (0-500) ug/L FEU Sodium (136-145) mmol/L Potassium (3.5-5.1) mmol/L Chloride (98-107) mmol/L Carbon Dioxide (21-32) mmol/L Anion Gap (3-11) BUN (7-18) mg/dl Creatinine (0.6-1.2) mg/dl Est Cr Clr Drug Dosing ml/min Est GFR ( Amer) Est GFR (Non-Af Amer) BUN/Creatinine Ratio (10-20) Glucose (70-99) mg/dl Calcium (8.5-10.1) mg/dl Phosphorus Pending Magnesium Pending Total Bilirubin (0.2-1) mg/dl AST (15-37) U/L ALT (12-78) U/L Alkaline Phosphatase (45-117) U/L Troponin I (0-0.045) ng/ml Total Protein (6.4-8.2) gm/dl Albumin (3.4-5.0) gm/dl Globulin (2.5-4.0) gm/dl Albumin/Globulin Ratio (0.9-2) Lipase (73-393) U/L TSH Pending Urine Color Yellow Urine Appearance Clear (Clear) Urine pH 5.0 (4.5-7.5) Ur Specific [place] 1.026 (1.000-1.030) Urine Protein 2+ H (Negative) Urine Glucose (UA) Negative (Negative) Urine Ketones Negative (Negative) Urine Blood Trace H (Negative) Urine Nitrite Negative (Negative) Urine Bilirubin Negative (Negative) Urine Urobilinogen Negative (Negative) Ur Leukocyte Esterase Negative (Negative) Urine WBC (Auto) 1-5 (0-5) /hpf Urine RBC (Auto) 5-10 H (0-4) /hpf U Hyaline Cast (Auto) 1-5 (0-5) /lpf U Epithel Cells (Auto) >30 H (0-5) /lpf Urine Bacteria (Auto) Negative (Negative) 04/18/20 04/18/20 Range/Units 09:16 09:16 WBC 8.89 (4.8-10.8) K/uL RBC 4.66 (4.2-5.4) M/uL Hgb 13.1 (12.0-16.0) g/dL Hct 39.2 (37-47) % MCV 84.1 (80-100) fL MCH 28.1 (25-34) pg MCHC 33.4 (32-36) g/dL RDW Std Deviation 42.3 (36.4-46.3) fL RDW Coeff of Donald 13.8 (11.5-14.5) % Plt Count 344 (130-400) K/uL MPV 8.9 (7.4-10.4) fL Immature Gran % (Auto) 0.3 % Neut % (Auto) 65.4 % Lymph % (Auto) 24.3 % Dolores % (Auto) 7.9 % Eos % (Auto) 1.9 % Baso % (Auto) 0.2 % Neut # (Auto) 5.81 (1.4-6.5) K/uL Lymph # (Auto) 2.16 (1.2-3.4) K/uL Dolores # (Auto) 0.70 H (0.11-0.59) K/uL Eos # (Auto) 0.17 (0-0.5) K/uL Baso # (Auto) 0.02 (0-0.2) K/uL Immature Gran # (Auto) 0.03 H (0.00-0.02) K/uL D-Dimer (0-500) ug/L FEU Sodium 119 L* (136-145) mmol/L Potassium 4.0 (3.5-5.1) mmol/L Chloride 84 L (98-107) mmol/L Carbon Dioxide 27 (21-32) mmol/L Anion Gap 8.0 (3-11) BUN 10 (7-18) mg/dl Creatinine 0.69 (0.6-1.2) mg/dl Est Cr Clr Drug Dosing 108.7 ml/min Est GFR ( Amer) 108.9 Est GFR (Non-Af Amer) 94.0 BUN/Creatinine Ratio 14.0 (10-20) Glucose 110 H (70-99) mg/dl Calcium 8.5 (8.5-10.1) mg/dl Phosphorus Magnesium Total Bilirubin 0.4 (0.2-1) mg/dl AST 7 L (15-37) U/L ALT 12 (12-78) U/L Alkaline Phosphatase 66 (45-117) U/L Troponin I < 0.015 (0-0.045) ng/ml Total Protein 7.0 (6.4-8.2) gm/dl Albumin 3.3 L (3.4-5.0) gm/dl Globulin 3.7 (2.5-4.0) gm/dl Albumin/Globulin Ratio 0.9 (0.9-2) Lipase 183 (73-393) U/L TSH Urine Color Urine Appearance (Clear) Urine pH (4.5-7.5) Ur Specific [place] (1.000-1.030) Urine Protein (Negative) Urine Glucose (UA) (Negative) Urine Ketones (Negative) Urine Blood (Negative) Urine Nitrite (Negative) Urine Bilirubin (Negative) Urine Urobilinogen (Negative) Ur Leukocyte Esterase (Negative) Urine WBC (Auto) (0-5) /hpf Urine RBC (Auto) (0-4) /hpf U Hyaline Cast (Auto) (0-5) /lpf U Epithel Cells (Auto) (0-5) /lpf Urine Bacteria (Auto) (Negative) Diagnostic Findings PA CHEST RADIOGRAPH AND UPRIGHT AND SUPINE AP RADIOGRAPHS OF THE ABDOMEN CLINICAL HISTORY: Upper abdominal pain. COMPARISON STUDY: Chest radiograph September 24, 2019. FINDINGS: Incidental note is made of a cervical spine fusion. There is no pneumothorax or pleural effusion. There is no consolidation or evidence for pulmonary edema. There is mild cardiomegaly. A right cardiophrenic angle density is unchanged since exam of January 30, 2018. This could reflect eventration of the hemidiaphragm or a Morgagni hernia. There is no free air. Several loops of mildly dilated small bowel are noted. There is no convincing evidence for a small bowel obstruction. There is gas within portions of the colon and rectum. Levoscoliosis of the lumbar spine is incidentally noted. IMPRESSION: 1. No free air. 2. A few loops of mildly dilated small bowel without convincing evidence for a small bowel obstruction. 3. No acute cardiopulmonary findings. ABDOMINAL ULTRASOUND, RIGHT UPPER QUADRANT HISTORY: Upper abd pain, chronic diarrhea. COMPARISON: None. FINDINGS: No hepatic lesions are identified. There is no biliary ductal dilatation. The common bile duct measures 3 mm in caliber. Gallbladder is mildly distended. No gallstones are identified. There is no gallbladder wall thickening. There was no sonographic Moore sign. Pancreatic body is normal. Head and tail are obscured. There is no right hydronephrosis. IMPRESSION: No gallstones or biliary ductal dilatation. Mild gallbladder distention. No evidence for acute cholecystitis. ECG Additional Comments: ECG 04/18/2028 1046 with normal sinus rhythm, rate 68, no ischemic changes Code Status & VTE Plan Code Status Full code VTE Prophylaxis Plan VTE Prophylaxis will be ordered: Yes PG Care Time/CCT Total # of Minutes Spent Total Time Spent with Patient: Total time spent is greater than 50% in coordination of care (as documented) at patient's floor/unit and/or counseling patient: Coding Level of Care Code 36168 Initial Inpt Care Lvl 3 Diagnoses Acute hyponatremia E87.1 Acute epigastric pain R10.13 Hypomagnesemia E83.42 Chronic diarrhea K52.9 AF (paroxysmal atrial fibrillation) I48.0 Obesity hypoventilation syndrome E66.2 Hypothyroidism (acquired) E03.9 Hypertension I10 GERD (gastroesophageal reflux disease) K21.9 COPD (chronic obstructive pulmonary disease) J44.9 Allergic rhinitis J30.9 Type 2 diabetes mellitus E11.9 Diabetic neuropathy E11.40 Coronary artery disease I25.10 Carotid artery narrowing I65.29 Anxiety F41.9 Depression F32.9 Meralgia paresthetica of right side G57.11 Psoriatic arthritis L40.50 On home oxygen therapy Z99.81 Hyperlipidemia E78.5 Osteoarthritis M19.90 DVT prophylaxis Z29.9
[2020-04-18 11:00] LABS: Magnesium 1.3 mg/dl (1.8-2.4); Phosphorus 3.4 mg/dl (2.5-4.9); Thyroid Stimulating Hormone 8.02 uIu/ml (0.300-4.500)
[2020-04-18] MEDS ORDERED: MAGNESIUM SULFATE / D5W 1 GM/100 ML BAG IV STA ×2 (11:22→11:43)
[2020-04-18] MEDS ORDERED: SODIUM CHLORIDE 0.9% 1000ML 1,000 ML IV SCH (11:45)
--- NOTE | 2020-04-18 12:15 | CT Scan Report ---
CT OF THE HEAD WITHOUT CONTRAST CLINICAL HISTORY: hyponatremia,headache COMPARISON STUDY: MRI of the brain April 05, 2017. CT DOSE: 1645.11 mGy.cm TECHNIQUE: Helical axial images of the head were obtained without IV contrast. Automated exposure con trol was utilized for the study. A dose lowering technique was utilized adhering to the principles o f ALARA. FINDINGS: No acute intracranial hemorrhage, midline shift or mass effect is present. The ventricular system is unremarkable. The basilar cisterns are patent. No extra-axial collections are present. Ther e are no findings to suggest acute dural sinus thrombosis or acute territorial infarct. No significan t calvarial abnormalities are present. Visualized portions of the sinuses and mastoid air cells are c lear. IMPRESSION: No acute intracranial findings. ACT 112: Negative or not required by law. Electronically signed by: Mejia Wadsworth M.D. 04/18/2020 12:13 PM
[2020-04-18 12:22] LABS: BUN Creatinine Ratio 14.3 (10-20); Est GFR (Non-African American) 98.4; Potassium 4.3 mmol/L (3.5-5.1)
--- NOTE | 2020-04-18 12:24 | CT Scan Report ---
CT OF THE CHEST WITHOUT IV CONTRAST CLINICAL HISTORY: abnormal CXR,smoker,hyponatremia,r/o mass COMPARISON STUDY: Chest radiograph April 18, 2020. TECHNIQUE: Axial images of the chest were obtained without IV contrast. Images were reviewed in the axial, sagittal, and coronal planes. IV contrast was not administered for this examination. Automat ed exposure control was utilized for the study. A dose lowering technique was utilized adhering to t he principles of ALARA. FINDINGS: No enlarged axillary, mediastinal or hilar lymph nodes are present. Moderate cardiomegaly is noted. There is no pericardial effusion. There is moderate coronary artery calcification. No pneum othorax or pleural effusion is noted. There is no consolidation to suggest pneumonia. Mild subpleural groundglass opacities reflect atelectasis. Note is made of mild eventration of the right hemidiaphra gm which accounts for the finding on chest radiograph. Mild bronchial wall thickening is noted. There are no suspicious pulmonary nodules. Bony thorax is unremarkable. There is a possible partially visu debi water attenuation lesion arising from the superior aspect of the left kidney. This could reflec t a cyst but is incompletely imaged on this examination. Kidneys appear lobulated. IMPRESSION: 1. No suspicious pulmonary nodules or masses. 2. No acute findings within the chest. 3. Moderate cardiomegaly. ACT 112: Negative or not required by law. Electronically signed by: Mejia Wadsworth M.D. 04/18/2020 12:22 PM
[2020-04-18] MEDS ORDERED: PROMETHAZINE HCL 6.25 MG in SODIUM CHLORIDE 0.9% 50 ML IV STA (15:50)
[2020-04-18] MEDS ORDERED: NITROGLYCERIN SL 0.4 MG/TAB TAB SL PRN (16:26)
[2020-04-18] MEDS ORDERED: GLUCAGON FOR INJ 1 MG VIAL SQ PRN (16:26)
[2020-04-18] MEDS ORDERED: GLUCOSE 10 TABS/TUBE PO PRN (16:26)
[2020-04-18] MEDS ORDERED: ALBUTEROL 0.5% NEB SOLN 2.5 MG/0.5 ML VIAL INH PRN (16:26)
[2020-04-18] MEDS ORDERED: GLUCOSE 40% GEL 15 GM TUBE PO PRN (16:26)
[2020-04-18] MEDS ORDERED: DEXTROSE 50% 50 ML SYRINGE IV PRN (16:26)
[2020-04-18] MEDS ORDERED: CARBOHYDRATES FOR HYPOGLYCEMIA PO PRN (16:26)
[2020-04-18] MEDS ORDERED: GABAPENTIN 800 MG TAB PO SCH (16:26)
[2020-04-18] MEDS ORDERED: PROMETHAZINE HCL 6.25 MG in SODIUM CHLORIDE 0.9% 50 ML IV PRN (16:26)
[2020-04-18] MEDS ORDERED: MONTELUKAST SODIUM 10 MG TABLET PO PRN (16:26)
[2020-04-18 17:05] LABS: BUN Creatinine Ratio 9.7 (10-20); Calcium 8.4 mg/dl (8.5-10.1); Creatinine Clr Calc Pharmacy 113.6 ml/min; Est GFR (African American) 110.5; Est GFR (Non-African American) 95.3; Potassium 4.6 mmol/L (3.5-5.1)
[2020-04-18] MEDS: ACETAMINOPHEN 325 MG TAB PO PRN (17:24)
[2020-04-18] MEDS: METHOCARBAMOL 500 MG TABLET PO PRN (18:04)
[2020-04-18] MEDS: SUCRALFATE 1 GM TAB PO SCH (18:04)
[2020-04-18] MEDS: GABAPENTIN 800 MG TAB PO SCH ×2 (18:04→21:09)
[2020-04-18] MEDS: INSULIN ASPART 100 UNITS/ML 3 ML PEN SC SCH ×2 (18:06→20:27)
[2020-04-18] MEDS: MUPIROCIN 2% OINT 22 GM TUBE EXT SCH ×2 (18:08→20:20)
[2020-04-18] MEDS: NYSTATIN CR 15 GM TUBE EXT SCH ×2 (18:46→20:20)
[2020-04-18] MEDS: PANTOprazole 40 MG TAB PO SCH (20:17)
[2020-04-18] MEDS: APIXABAN 5 MG TABLET PO SCH (20:18)
[2020-04-18] MEDS: MAGNESIUM OXIDE 400 MG TAB PO SCH (20:19)
[2020-04-18] MEDS: METOPROLOL SUCC 25MG EXT REL TAB PO SCH (20:19)
[2020-04-18] MEDS: TRAZODONE HCL 100 MG TAB PO SCH (20:19)
[2020-04-18] MEDS: PRAVASTATIN SOD 20 MG TAB PO SCH (20:19)
[2020-04-18] MEDS: CETIRIZINE HCL 10 MG TABLET PO SCH (20:19)
[2020-04-18] MEDS: DULOXETINE HCL 60 MG CAP PO SCH (20:19)
[2020-04-18 21:17] LABS: BUN Creatinine Ratio 10.4 (10-20); Calcium 8.3 mg/dl (8.5-10.1); Creatinine Clr Calc Pharmacy 127.1 ml/min; Est GFR (African American) 114.7; Est GFR (Non-African American) 98.9; Potassium 3.9 mmol/L (3.5-5.1)
[2020-04-18] MEDS: SODIUM CHLORIDE 0.45 % 1,000 ML IV SCH (22:08)
[2020-04-18] MEDS: MoRPHine SULFATE 2 MG/ML CARP IV PRN (22:12)
[2020-04-19] MEDS: LEVOTHYROXINE SODIUM 200 MCG TABLET PO SCH (05:45)
[2020-04-19] MEDS: METHOCARBAMOL 500 MG TABLET PO PRN ×2 (06:06→08:11)
[2020-04-19] MEDS: ACETAMINOPHEN 325 MG TAB PO PRN (06:06)
--- NOTE | 2020-04-19 07:13 | Electrocardiogram Report ---
Test Reason : Blood Pressure : / mmHG Vent. Rate : 068 BPM Atrial Rate : 068 BPM P-R Int : 152 ms QRS Dur : 088 ms QT Int : 432 ms P-R-T Axes : 060 038 027 degrees QTc Int : 459 ms Normal sinus rhythm Normal ECG When compared with ECG of 13-MAY-2018 15:30, No significant change was found Confirmed by Justus West ([id number] on 04/19/2020 7:12:42 AM Referred By: REFERRED SELF Confirmed By:Justus West
[2020-04-19 07:43] LABS: BUN Creatinine Ratio 9.2 (10-20); Calcium 8.1 mg/dl (8.5-10.1); Est GFR (Non-African American) 101.8; Magnesium 1.8 mg/dl (1.8-2.4); Potassium 4.1 mmol/L (3.5-5.1)
[2020-04-19] MEDS: UMECLIDINIUM/VILANTEROL 62.5/25MCG 7 PUFFS/INHALER INH SCH (08:10)
[2020-04-19] MEDS: FLUTICASONE FUROATE 100MCG 14 PUFFS/INHALER INH SCH (08:11)
[2020-04-19] MEDS: METOPROLOL SUCC 25MG EXT REL TAB PO SCH ×2 (08:12→20:12)
[2020-04-19] MEDS: FOLIC ACID 1 MG TAB PO SCH (08:12)
[2020-04-19] MEDS: CHOLECALCIFEROL 1,000 UNITS 25 MCG TAB PO SCH (08:12)
[2020-04-19] MEDS: MUPIROCIN 2% OINT 22 GM TUBE EXT SCH ×3 (08:12→20:06)
[2020-04-19] MEDS: MAGNESIUM OXIDE 400 MG TAB PO SCH ×2 (08:13→20:09)
[2020-04-19] MEDS: DULOXETINE HCL 30 MG CAP PO SCH (08:13)
[2020-04-19] MEDS: APIXABAN 5 MG TABLET PO SCH ×2 (08:13→20:09)
[2020-04-19] MEDS: GABAPENTIN 800 MG TAB PO SCH ×3 (08:13→21:00)
[2020-04-19] MEDS: NYSTATIN CR 15 GM TUBE EXT SCH ×3 (08:13→20:10)
[2020-04-19] MEDS: CYANOCOBALAMIN 500 MCG TABLET (VITAMIN B-12) PO SCH (08:13)
[2020-04-19] MEDS: PANTOprazole 40 MG TAB PO SCH ×2 (08:14→20:11)
[2020-04-19 08:16] LABS: Estimated Average Glucose 126 mg/dl
[2020-04-19] MEDS: MoRPHine SULFATE 2 MG/ML CARP IV PRN ×2 (08:21→22:43)
[2020-04-19] MEDS: SODIUM CHLORIDE 0.45 % 1,000 ML IV SCH (08:21)
[2020-04-19] MEDS: INSULIN ASPART 100 UNITS/ML 3 ML PEN SC SCH ×4 (08:52→20:13)
[2020-04-19] MEDS ORDERED: NON-FORMULARY MEDICATION (Fluticasone-Umeclidin-Vilanter [Trelegy Ellipta] 1 PUFFS) INH SCH (09:00)
[2020-04-19] MEDS ORDERED: SODIUM CHLORIDE 0.65% NA SOLN 45 ML (OCEAN) ONE (09:31)
[2020-04-19] MEDS: METHOCARBAMOL 500 MG TABLET PO SCH ×3 (13:15→20:11)
[2020-04-19] MEDS: TRAMADOL HCL 50 MG TABLET PO PRN ×2 (16:09→20:12)
[2020-04-19] MEDS: SUCRALFATE 1 GM TAB PO SCH (16:12)
[2020-04-19] MEDS: DULOXETINE HCL 60 MG CAP PO SCH (20:08)
[2020-04-19] MEDS: TRAZODONE HCL 100 MG TAB PO SCH (20:08)
[2020-04-19] MEDS: PRAVASTATIN SOD 20 MG TAB PO SCH (20:10)
[2020-04-19] MEDS: CETIRIZINE HCL 10 MG TABLET PO SCH (20:12)
--- NOTE | 2020-04-19 22:20 | Hospitalist Progress Note ---
Date of Service April 19, 2020 Assessment & Plan (1) Acute hyponatremia: Presented with epigastric abdominal pain and nausea with dry heaving in the setting of diarrhea x3 months. With poor p.o. intake the last 2 days prior to admission. Was also started on oxcarbazepine in the last 2 months. Baseline sodium is normal at 137 in 06/2019 All of her other medications have been chronic except for the oxcarbazepine which is new. Suspect her hyponatremia is all from hypovolemia and poor p.o. intake in the setting of diarrhea Serum osmolality low at 253 Urine osmolality 516, urine sodium 54, random cortisol albeit in the morning was normal at 18, and TSH is elevated at 8.02 Suspect her hyponatremia is a combination of SIADH as she is on multiple medications which could cause SIADH, most notably the oxcarbazepine which was a new drug recently, in addition to hypothyroidism, and some due to dehydration and GI losses. She is a heavy smoker and is complaining of a headache-she could have pulmonary or intracranial lesions contributing to SIADH. -Admit to medical floor with telemetry -Received 2 L normal saline in the ER, will continue 1 L of normal saline at 100 mL's per hour -Serial BMP every 4 hours to follow sodium-do not want a raise it more than 6- 12/24 hours -Adjust fluids as needed based on sodium levels -Increase levothyroxine dose to 200 mcg daily up from 200 mcg on 6 days of the week -Find cause of her diarrhea-suspect the recent epigastric abdominal pain and nausea is secondary to severe dehydration and hyponatremia -Check CT of the head given headaches to rule out intracranial lesion -Check CT of the chest to rule out pulmonary mass as cause of SIADH -Hold her home oxcarbazepine for now and monitor for withdrawal symptoms-may be able to restart tomorrow if hyponatremia improving On day 2 of hospital stay, her diarrhea has improved. Her sodium has also improved. will continue to monitor overnight. Anticipate discharge in AM. (2) Acute epigastric pain: Likely secondary to severe dehydration, hyponatremia, dry heaves She has normal LFTs, right upper quadrant ultrasound is normal -Hydrating with IV fluids as above and will see if this improves it -Continue PPI and Carafate as before -Add on low-dose Phenergan as needed for nausea as she is allergic to Zofran -Hold home ferrous sulfate as this can worsen nausea -Consulting GI to see if needs upper endoscopy (3) Hypomagnesemia: Magnesium severely low at 1.3, likely secondary to GI losses -Replace with 3 g total of IV magnesium -Follow level in the morning (4) Chronic diarrhea: Diarrhea ongoing for the last 3 months, 2-10 times per day, nonbloody. With associated lower abdominal chronic pain She is not anemic. No fevers or chills She saw GI for the first time on 04/02 and was scheduled for colonoscopy I do not see that any stool studies have ever been done. Reports that fiber supplements made her constipated and that Imodium helped --Check C. difficile and stool culture with next stool sample -Consult GI for further opinion -Will check routine COVID-19 test that she was supposed to have done today anyway for pre-colonoscopy screening for this coming Tuesday (5) AF (paroxysmal atrial fibrillation): With a history of paroxysmal atrial fibrillation mentioned after a TIA in 2013 and old cardiology records, but none noted on EKGs since then in our records - is on Eliquis and metoprolol In normal sinus rhythm here Monitor on telemetry (6) Obesity hypoventilation syndrome: Follows with pulmonology, Dr. Chan -Continue nocturnal O2 Is awaiting outpatient sleep study to get qualified for CPAP/BiPAP (7) Hypothyroidism (acquired): TSH elevated here as above at 8 -Increasing levothyroxine to 200 mcg every day as opposed to just 6 days a week -Follow-up TSH in 4 to 6 weeks (8) Hypertension: Blood pressures are elevated here -Continue home metoprolol succinate 25 mg p.o. twice daily (9) GERD (gastroesophageal reflux disease): Continue home PPI and Carafate (10) COPD (chronic obstructive pulmonary disease): Follows with pulmonology No acute issues -Continue home inhalers, and albuterol as needed Continue Singulair (11) Allergic rhinitis: Continue Singulair (12) Type 2 diabetes mellitus: Is on metformin at home Last hemoglobin A1c was 5.8% in 06/2018 -Hold metformin here -Give NovoLog sliding scale with meals Check Accu-Cheks before meals and at bedtime -Check hemoglobin A1c: 6 (13) Diabetic neuropathy: Continue home gabapentin, Cymbalta (14) Coronary artery disease: Cardiology records note that she has nonobstructive CAD based on catheterization in 2013 No ischemic changes on ECG here, no chest pain -Continue metoprolol, statin, apixaban (15) Carotid artery narrowing: Noted in chart Follows with cardiology Continue home apixaban and statin (16) Anxiety: Stable -Continue home trazodone, Cymbalta, buspirone (17) Depression: Stable, meds as above (18) Meralgia paresthetica of right side: Holding home oxcarbazepine for hyponatremia as above (19) Psoriatic arthritis: Noted in chart Is not on medications for this (20) On home oxygen therapy: Uses 5 L at bedtime (21) Hyperlipidemia: Continue statin (22) Osteoarthritis: Tylenol as needed for pain (23) DVT prophylaxis: Eliquis Disposition-admit to medical floor with telemetry for severe hyponatremia, nausea and diarrhea Admission and Anticipated Discharge Date Admission Date: April 18, 2020 Subjective 59 yo female reports feeling well. She has no new complaints. Review of Systems Review of Systems: All systems reviewed & are unremarkable except as noted in HPI & below Physical Exam Physical Exam: Constitutional: WD/WN, vitals as above + morbidly obese Eyes: PERRL, conjunctivae normal, anicteric sclerae ENMT: external ear and nose normal, oropharynx normal Neck: trachea midline, no thyromegaly Respiratory: normal respiratory effort, lungs clear to auscultation Cardiovascular: RRR, no murmur, no edema Chest (Breasts): Chest: normal inspection of chest Gastrointestinal (Abdomen): normal bowel sounds, soft, nontender, no hepatosplenomegaly Musculoskeletal: Extremities: extremities normal to inspection; no cyanosis and no clubbing Skin: no rashes, warm and dry Neurologic: PERRL, EOMI, accommodation nl, no face palsy, no dysarthria CN's II-XI intact bilaterally, moves all extremities and awake; no focal motor deficits Motor/Sensory: no tremor and no sensory deficit Psychiatric: A+Ox3, euthymic affect Lymphatic: no lymphedema Results & Data Results & Data ([facility]) Vital Signs (Past 12 Hours) Vital Signs Temp Pulse Pulse Pulse Resp BP BP 04/19/20 19:00 36.9 C 72 19 136/86 04/19/20 15:17 36.7 C 68 18 149/73 H 04/19/20 14:20 65 04/19/20 11:28 37.0 C 70 18 142/88 H Pulse Ox 04/19/20 19:00 94 04/19/20 15:17 92 04/19/20 14:20 04/19/20 11:28 93 PG Care Time/CCT Total # of Minutes Spent Total Time Spent with Patient: Total time spent is greater than 50% in coordination of care (as documented) at patient's floor/unit and/or counseling patient: Coding Level of Care Code 03435 Subseq Hosp Care Lvl 2 Diagnoses Acute hyponatremia E87.1 Acute epigastric pain R10.13 Hypomagnesemia E83.42 Chronic diarrhea K52.9 AF (paroxysmal atrial fibrillation) I48.0 Obesity hypoventilation syndrome E66.2 Hypothyroidism (acquired) E03.9 Hypertension I10 GERD (gastroesophageal reflux disease) K21.9 COPD (chronic obstructive pulmonary disease) J44.9 Allergic rhinitis J30.9 Type 2 diabetes mellitus E11.9 Diabetic neuropathy E11.40 Coronary artery disease I25.10 Carotid artery narrowing I65.29 Anxiety F41.9 Depression F32.9 Meralgia paresthetica of right side G57.11 Psoriatic arthritis L40.50 On home oxygen therapy Z99.81 Hyperlipidemia E78.5 Osteoarthritis M19.90 DVT prophylaxis Z29.9 Time Spent (min) 25
[2020-04-20] MEDS: TRAMADOL HCL 50 MG TABLET PO PRN ×3 (01:06→15:39)
[2020-04-20] MEDS: MoRPHine SULFATE 2 MG/ML CARP IV PRN ×3 (03:35→22:42)
[2020-04-20] MEDS: APIXABAN 5 MG TABLET PO SCH (04:52)
[2020-04-20] MEDS: LEVOTHYROXINE SODIUM 200 MCG TABLET PO SCH (06:08)
[2020-04-20] MEDS: METOPROLOL SUCC 25MG EXT REL TAB PO SCH ×2 (08:29→20:38)
[2020-04-20] MEDS: CHOLECALCIFEROL 1,000 UNITS 25 MCG TAB PO SCH (08:29)
[2020-04-20] MEDS: MUPIROCIN 2% OINT 22 GM TUBE EXT SCH ×3 (08:29→20:25)
[2020-04-20] MEDS: PANTOprazole 40 MG TAB PO SCH ×2 (08:29→20:37)
[2020-04-20] MEDS: FOLIC ACID 1 MG TAB PO SCH (08:29)
[2020-04-20] MEDS: DULOXETINE HCL 30 MG CAP PO SCH (08:30)
[2020-04-20] MEDS: MAGNESIUM OXIDE 400 MG TAB PO SCH ×2 (08:30→20:37)
[2020-04-20] MEDS: GABAPENTIN 800 MG TAB PO SCH ×3 (08:30→20:38)
[2020-04-20] MEDS: METHOCARBAMOL 500 MG TABLET PO SCH ×4 (08:30→20:37)
[2020-04-20] MEDS: FLUTICASONE FUROATE 100MCG 14 PUFFS/INHALER INH SCH (08:31)
[2020-04-20] MEDS: UMECLIDINIUM/VILANTEROL 62.5/25MCG 7 PUFFS/INHALER INH SCH (08:31)
[2020-04-20] MEDS: CYANOCOBALAMIN 500 MCG TABLET (VITAMIN B-12) PO SCH (08:31)
[2020-04-20] MEDS: NYSTATIN CR 15 GM TUBE EXT SCH ×3 (08:32→20:25)
[2020-04-20] MEDS: INSULIN ASPART 100 UNITS/ML 3 ML PEN SC SCH ×4 (09:43→20:28)
[2020-04-20] MEDS ORDERED: POLYETHYLENE (MIRALAX) 17 GM PACK PO ONE (13:15)
--- NOTE | 2020-04-20 13:56 | XRay Report ---
XR KUB/Abdomen 1 view CLINICAL HISTORY: constipation COMPARISON STUDY: 04/18/2020 FINDINGS: There are no transition zones to indicate bowel obstruction. There are scattered colonic st ool. Degenerative changes are present within the cervical spine. Is a lumbar levoscoliosis. IMPRESSION: Nonobstructive bowel gas pattern. ACT 112: Negative or not required by law. Electronically signed by: Landon Armenta M.D. 04/20/2020 1:54 PM
[2020-04-20] MEDS: SUCRALFATE 1 GM TAB PO SCH (17:46)
[2020-04-20] MEDS: DULOXETINE HCL 60 MG CAP PO SCH (20:26)
[2020-04-20] MEDS: TRAZODONE HCL 100 MG TAB PO SCH (20:36)
[2020-04-20] MEDS: PRAVASTATIN SOD 20 MG TAB PO SCH (20:37)
[2020-04-20] MEDS: CETIRIZINE HCL 10 MG TABLET PO SCH (20:38)
--- NOTE | 2020-04-20 22:03 | Hospitalist Progress Note ---
Date of Service April 20, 2020 Assessment & Plan (1) Acute hyponatremia: Presented with epigastric abdominal pain and nausea with dry heaving in the setting of diarrhea x3 months. With poor p.o. intake the last 2 days prior to admission. Was also started on oxcarbazepine in the last 2 months. Baseline sodium is normal at 137 in 06/2019 All of her other medications have been chronic except for the oxcarbazepine which is new. Suspect her hyponatremia is all from hypovolemia and poor p.o. intake in the setting of diarrhea Serum osmolality low at 253 Urine osmolality 516, urine sodium 54, random cortisol albeit in the morning was normal at 18, and TSH is elevated at 8.02 Suspect her hyponatremia is a combination of SIADH as she is on multiple medications which could cause SIADH, most notably the oxcarbazepine which was a new drug recently, in addition to hypothyroidism, and some due to dehydration and GI losses. She is a heavy smoker and is complaining of a headache-she could have pulmonary or intracranial lesions contributing to SIADH. -Admit to medical floor with telemetry -Received 2 L normal saline in the ER, will continue 1 L of normal saline at 100 mL's per hour -Serial BMP every 4 hours to follow sodium-do not want a raise it more than 6- 12/24 hours -Adjust fluids as needed based on sodium levels -Increase levothyroxine dose to 200 mcg daily up from 200 mcg on 6 days of the week -Find cause of her diarrhea-suspect the recent epigastric abdominal pain and nausea is secondary to severe dehydration and hyponatremia -Check CT of the head given headaches to rule out intracranial lesion -Check CT of the chest to rule out pulmonary mass as cause of SIADH -Hold her home oxcarbazepine for now and monitor for withdrawal symptoms-may be able to restart tomorrow if hyponatremia improving On day 2 of hospital stay, her diarrhea has improved. Her sodium has also improved. will continue to monitor overnight. On day 3, Patient was concerned over her constipation. Patient was given on dose of miralax. She ultimately had a BM, however she stated by the time this had happened, it was late afternoon. Patient's was unable to accommodate transportation. Will monitor overnight and confirm she is improving with her BM. -Good news is patient is no longer having nausea. (2) Acute epigastric pain: Likely secondary to severe dehydration, hyponatremia, dry heaves She has normal LFTs, right upper quadrant ultrasound is normal -Hydrating with IV fluids as above and will see if this improves it -Continue PPI and Carafate as before -Add on low-dose Phenergan as needed for nausea as she is allergic to Zofran -Hold home ferrous sulfate as this can worsen nausea -Consulting GI to see if needs upper endoscopy (3) Hypomagnesemia: Magnesium severely low at 1.3, likely secondary to GI losses -Replace with 3 g total of IV magnesium -Follow level in the morning (4) Chronic diarrhea: Diarrhea ongoing for the last 3 months, 2-10 times per day, nonbloody. With associated lower abdominal chronic pain She is not anemic. No fevers or chills She saw GI for the first time on 04/02 and was scheduled for colonoscopy I do not see that any stool studies have ever been done. Reports that fiber supplements made her constipated and that Imodium helped --Check C. difficile and stool culture with next stool sample -Consult GI for further opinion -Will check routine COVID-19 test that she was supposed to have done today anyway for pre-colonoscopy screening for this coming Tuesday (5) AF (paroxysmal atrial fibrillation): With a history of paroxysmal atrial fibrillation mentioned after a TIA in 2013 and old cardiology records, but none noted on EKGs since then in our records - is on Eliquis and metoprolol In normal sinus rhythm here Monitor on telemetry (6) Obesity hypoventilation syndrome: Follows with pulmonology, Dr. Chan -Continue nocturnal O2 Is awaiting outpatient sleep study to get qualified for CPAP/BiPAP (7) Hypothyroidism (acquired): TSH elevated here as above at 8 -Increasing levothyroxine to 200 mcg every day as opposed to just 6 days a week -Follow-up TSH in 4 to 6 weeks (8) Hypertension: Blood pressures are elevated here -Continue home metoprolol succinate 25 mg p.o. twice daily (9) GERD (gastroesophageal reflux disease): Continue home PPI and Carafate (10) COPD (chronic obstructive pulmonary disease): Follows with pulmonology No acute issues -Continue home inhalers, and albuterol as needed Continue Singulair (11) Allergic rhinitis: Continue Singulair (12) Type 2 diabetes mellitus: Is on metformin at home Last hemoglobin A1c was 5.8% in 06/2018 -Hold metformin here -Give NovoLog sliding scale with meals Check Accu-Cheks before meals and at bedtime -Check hemoglobin A1c: 6 (13) Diabetic neuropathy: Continue home gabapentin, Cymbalta (14) Coronary artery disease: Cardiology records note that she has nonobstructive CAD based on catheterization in 2012 No ischemic changes on ECG here, no chest pain -Continue metoprolol, statin, apixaban (15) Carotid artery narrowing: Noted in chart Follows with cardiology Continue home apixaban and statin (16) Anxiety: Stable -Continue home trazodone, Cymbalta, buspirone (17) Depression: Stable, meds as above (18) Meralgia paresthetica of right side: Holding home oxcarbazepine for hyponatremia as above (19) Psoriatic arthritis: Noted in chart Is not on medications for this (20) On home oxygen therapy: Uses 5 L at bedtime (21) Hyperlipidemia: Continue statin (22) Osteoarthritis: Tylenol as needed for pain (23) DVT prophylaxis: Holding Eliquis for colonoscopy on tuesday. Admission and Anticipated Discharge Date Admission Date: April 18, 2020 Subjective Patient reports not having a bowel movement for .past 2 days. Prior to this she was complaining of diarrhea and is planning to have a colonoscopy on Tuesday as an outpatient. Review of Systems Review of Systems: All systems reviewed & are unremarkable except as noted in HPI & below Physical Exam Physical Exam: Constitutional: WD/WN, vitals as above + morbidly obese Eyes: PERRL, conjunctivae normal, anicteric sclerae ENMT: external ear and nose normal, oropharynx normal Neck: trachea midline, no thyromegaly Respiratory: normal respiratory effort, lungs clear to auscultation Cardiovascular: RRR, no murmur, no edema Chest (Breasts): Chest: normal inspection of chest Gastrointestinal (Abdomen): normal bowel sounds, soft, nontender, no hepatosplenomegaly Musculoskeletal: Extremities: extremities normal to inspection; no cyanosis and no clubbing Skin: no rashes, warm and dry Neurologic: PERRL, EOMI, accommodation nl, no face palsy, no dysarthria CN's II-XI intact bilaterally, moves all extremities and awake; no focal motor deficits Motor/Sensory: no tremor and no sensory deficit Psychiatric: A+Ox3, euthymic affect Lymphatic: no lymphedema Results & Data Results & Data ([facility]) Vital Signs (Past 12 Hours) Vital Signs Temp Pulse Pulse Pulse Resp BP Pulse Ox 04/20/20 19:42 36.5 C 69 20 135/74 94 04/20/20 15:18 36.6 C 69 18 106/70 90 04/20/20 15:04 76 04/20/20 11:17 36.6 C 68 18 95/65 L 92 PG Care Time/CCT Total # of Minutes Spent Total Time Spent with Patient: Total time spent is greater than 50% in coordination of care (as documented) at patient's floor/unit and/or counseling patient: Coding Level of Care Code 97211 Subseq Hosp Care Lvl 2 Diagnoses Acute hyponatremia E87.1 Acute epigastric pain R10.13 Hypomagnesemia E83.42 Chronic diarrhea K52.9 AF (paroxysmal atrial fibrillation) I48.0 Obesity hypoventilation syndrome E66.2 Hypothyroidism (acquired) E03.9 Hypertension I10 GERD (gastroesophageal reflux disease) K21.9 COPD (chronic obstructive pulmonary disease) J44.9 Allergic rhinitis J30.9 Type 2 diabetes mellitus E11.9 Diabetic neuropathy E11.40 Coronary artery disease I25.10 Carotid artery narrowing I65.29 Anxiety F41.9 Depression F32.9 Meralgia paresthetica of right side G57.11 Psoriatic arthritis L40.50 On home oxygen therapy Z99.81 Hyperlipidemia E78.5 Osteoarthritis M19.90 DVT prophylaxis Z29.9
[2020-04-21] MEDS: ACETAMINOPHEN 325 MG TAB PO PRN (01:43)
[2020-04-21] MEDS: LEVOTHYROXINE SODIUM 200 MCG TABLET PO SCH (06:08)
[2020-04-21] MEDS: INSULIN ASPART 100 UNITS/ML 3 ML PEN SC SCH ×2 (07:46→11:51)
[2020-04-21] MEDS: UMECLIDINIUM/VILANTEROL 62.5/25MCG 7 PUFFS/INHALER INH SCH (08:17)
[2020-04-21] MEDS: TRAMADOL HCL 50 MG TABLET PO PRN (08:18)
[2020-04-21] MEDS: FLUTICASONE FUROATE 100MCG 14 PUFFS/INHALER INH SCH (08:18)
[2020-04-21] MEDS: MAGNESIUM OXIDE 400 MG TAB PO SCH (08:19)
[2020-04-21] MEDS: GABAPENTIN 800 MG TAB PO SCH (08:19)
[2020-04-21] MEDS: DULOXETINE HCL 30 MG CAP PO SCH (08:19)
[2020-04-21] MEDS: PANTOprazole 40 MG TAB PO SCH (08:19)
[2020-04-21] MEDS: FOLIC ACID 1 MG TAB PO SCH (08:19)
[2020-04-21] MEDS: CYANOCOBALAMIN 500 MCG TABLET (VITAMIN B-12) PO SCH (08:20)
[2020-04-21] MEDS: METOPROLOL SUCC 25MG EXT REL TAB PO SCH (08:20)
[2020-04-21] MEDS: METHOCARBAMOL 500 MG TABLET PO SCH (08:20)
[2020-04-21] MEDS: CHOLECALCIFEROL 1,000 UNITS 25 MCG TAB PO SCH (08:20)
[2020-04-21] MEDS: NYSTATIN CR 15 GM TUBE EXT SCH (08:23)
[2020-04-21] MEDS: MUPIROCIN 2% OINT 22 GM TUBE EXT SCH (08:23)
--- NOTE | 2020-04-21 09:27 | Gastrointestinal Consultation ---
Date of Consultation April 21, 2020 Assessment & Plan (1) Acute epigastric pain: Patient with acute epigastric pain with unremarkable abdominal US. She is otherwise without alarm symptoms. She reports she is to be discharged today. If this is the case, we will arrange for outpatient EGD. She should continue her Nexium 40 mg BID upon discharge. I would emphasize the importance of tobacco cessation. Continue to avoid NSAIDs. (2) Chronic diarrhea: Patient is scheduled for an outpatient colonoscopy on 04/23/2020 for further evaluation of this issue. Supervising Physician Co-Signing Physician Notes I personally evaluated the patient and agree with the findings as documented by Selam Syed, PAC Exam: abd: soft, mild-moderate diffuse tenderness, nd patient is being discharged today, she is scheduled for an outpt colonoscopy monday 04/[address] Kelley, discussed with him and we will add on an EGD for 04/23 as well to evaluate her epigastric pain. continue PPI for now. History of Present Illness Reason for Consultation: Epigastric pain Attending Physician: Vasile Harris MD History of Present Illness Patient is a 59 yo female [facility] GI has been consulted due to epigastric pain & nausea. Patient reports that this epigastric pain began 2 weeks ago, however notes it has worsened significantly over the past several days. She reports that taking a PPI makes the pain manageable. She had an unremarkable US of the abdomen. She is on Nexium 40 mg BID at home. She is a heavy smoker. She had an EGD in 2018 that did not indicate any acute concerns. She has a history of chronic diarrhea for which she is scheduled as an outpatient for a colonoscopy on Tuesday04/23/2020. At the present time she reports constipation since admission to the hospital. She denies vomiting or melena. She denies NSAID use. She denies pertinent family history. She is eager to be discharged and reports she has been told she can go home this AM. Allergies Allergy/AdvReac Type Severity Reaction Status Date / Time bee pollen Allergy Severe Anaphylaxis Verified 04/18/20 10:00 buprenorphine [From Suboxone] Allergy Severe VOMITTING, Verified 04/18/20 10:00 SKIN PROBLEMS fentanyl Allergy Severe SEVERE Verified 04/18/20 10:00 SEDATION, RESP DEPRESSION Penicillins Allergy Severe ANAPHYLAXIS Verified 04/18/20 10:00 pregabalin Allergy Severe SHORTNESS Verified 04/18/20 10:00 OF BREATH adhesive Allergy Intermediate Blister Verified 04/18/20 18:11 cephalexin Allergy Intermediate Nausea Verified 04/18/20 18:15 levofloxacin [From Levaquin] Allergy Intermediate CAUSES IBS Verified 04/18/20 10:00 ondansetron [From Zofran] Allergy Intermediate Migraine Verified 04/18/20 10:00 fluticasone Allergy Mild SEVERE Verified 04/18/20 10:00 THRUSH salmeterol Allergy Mild SEVERE Verified 04/18/20 10:00 THRUSH sulfamethoxazole Allergy Mild SEVERE Verified 04/18/20 10:00 NAUSEA Bactrim Allergy Unknown SEVERE Verified 01/30/18 09:22 NAUSEA naloxone [From Suboxone] Allergy Unknown Unknown Verified 04/18/20 18:10 trimethoprim Allergy Unknown SEVERE Verified 04/18/20 10:00 NAUSEA saccharin [From Sweeta] AdvReac Intermediate SEVERE Verified 04/18/20 10:00 VOMITING ketorolac AdvReac Mild headache Verified 04/18/20 10:00 Home Medications Home Medications Medication Instructions Recorded Confirmed Type Oxygen Home #1 ea 03/20/19 04/18/20 Rx apixaban 5 mg tablet 5 mg PO BID #60 tab 03/20/19 04/18/20 Rx blood sugar diagnostic #100 ea 03/20/19 04/18/20 Rx cholecalciferol (vitamin D3) 25 1,000 units PO DAILY #30 cap 03/20/19 04/18/20 Rx mcg (1,000 unit) capsule lancets 30 gauge #200 ea 03/20/19 04/18/20 Rx nitroglycerin 0.4 mg sublingual 0.4 mg SUBLINGUAL UD PRN #30 tab 03/20/19 04/18/20 Rx tablet pravastatin 20 mg tablet 20 mg PO HS #90 tab 04/30/19 04/18/20 Rx miscellaneous medical supply #1 ea 05/14/19 04/18/20 Rx metformin 1,000 mg tablet 1,000 mg PO BID #180 tab 06/08/19 04/18/20 Rx nystatin 100,000 unit/mL oral 200,000 units BUCCAL QID PRN 10 07/12/19 04/18/20 Rx suspension Days #80 ml albuterol sulfate 2.5 mg/0.5 mL 2.5 mg INHALATION QID PRN #30 ea 09/13/19 04/18/20 Rx solution for nebulization albuterol sulfate 90 mcg/actuation 2 puff INHALATION Q6H PRN #18 gm 09/13/19 04/18/20 Rx aerosol inhaler mupirocin 2 % topical ointment 1 appln TOP TID #22 gm 09/26/19 04/18/20 Rx cyanocobalamin (vitamin B-12) 500 1,000 mcg PO DAILY #60 tab 10/15/19 04/18/20 Rx mcg tablet clobetasol 0.05 % lotion 1 appln TOP BID PRN 14 Days #59 ml 10/16/19 04/18/20 Rx fluocinolone acetonide oil 0.01 % 5 drops OT BID 7 Days #20 ml 10/22/19 04/18/20 Rx ear drops miscellaneous medical supply #1 ea 11/14/19 04/18/20 Rx gabapentin 800 mg tablet 800 mg PO .COMPLEX #105 tab 12/10/19 04/18/20 Rx levocetirizine 5 mg tablet 5 mg PO HS #30 tab 12/10/19 04/18/20 Rx buspirone 10 mg tablet 10 mg PO BID #60 tab 12/12/19 04/18/20 Rx magnesium oxide 400 mg PO BID #60 tab 12/26/19 04/18/20 Rx hydroxyzine pamoate 25 mg capsule 25 mg PO TID PRN #60 cap 01/14/20 04/18/20 Rx folic acid 1 mg tablet 1 mg PO DAILY #30 tab 01/16/20 04/18/20 Rx metoprolol succinate 25 mg 25 mg PO BID #60 tab 01/22/20 04/18/20 Rx tablet,extended release 24 hr levothyroxine 200 mcg tablet 200 mcg PO 6XWK #90 tab 01/23/20 04/18/20 Rx esomeprazole magnesium 40 mg 40 mg PO BID #180 cap 01/29/20 04/18/20 Rx capsule,delayed release ferrous sulfate 325 mg (65 mg 325 mg PO BID #60 tab 02/06/20 04/18/20 Rx iron) tablet duloxetine 30 mg capsule,delayed 30 mg PO QAM #30 cap 02/15/20 04/18/20 Rx release montelukast 10 mg tablet 10 mg PO DAILY PRN #30 tab 02/20/20 04/18/20 Rx fluticasone fur. 100 mcg-umeclid 1 puffs INH DAILY #60 ea 02/26/20 04/18/20 Rx 62.5 mcg-vilant 25 mcg inhalat.powder sucralfate 1 gram tablet 1 g PO DAILY #90 tab 03/17/20 04/18/20 Rx trazodone 100 mg tablet 100 - 300 mg PO HS #90 tab 03/17/20 04/18/20 Rx nystatin 100,000 unit/gram topical 1 appln TOP TID #60 gm 03/21/20 04/18/20 Rx cream methocarbamol 500 mg tablet 1,000 mg PO QID PRN #240 tab 04/08/20 04/18/20 Rx duloxetine 60 mg capsule,delayed 60 mg PO HS #30 cap 04/14/20 04/18/20 Rx release oxcarbazepine 300 mg tablet 300 mg PO BID 30 Days #60 tab 04/14/20 04/18/20 Rx promethazine 12.5 mg tablet 12.5 mg PO Q6H PRN #20 tab 04/17/20 04/18/20 Rx Patient History Medical History AF (paroxysmal atrial fibrillation) Allergic rhinitis (Chronic) Anemia (Chronic) Anxiety (Chronic) Anxiety Carotid artery narrowing (Chronic) FOLLOWED BY DR. PEÑA Chronic diarrhea Chronic interstitial cystitis COPD (chronic obstructive pulmonary disease) (Chronic) Coronary artery disease (Chronic) Degenerative cervical spinal stenosis (Chronic) Degenerative disc disease Degenerative joint disease of shoulder Depression (Chronic) Dermatitis of both ear canals Diabetic neuropathy (Chronic) Dysfunction of right eustachian tube Esophageal dysphagia (Chronic) Failed back syndrome (Chronic) GERD (gastroesophageal reflux disease) (Chronic) History of ME (myocardial infarction) (2009) History of tremor (Resolved) HX LOW MAGNESIUM Hx of deep venous thrombosis 3 YEARS AGO (REASON FOR ELIQUIS) Hx of thyroid cancer Hx: recurrent pneumonia Hyperlipidemia (Acute) Hypertension (Chronic) Hypothyroidism (acquired) Lumbar disc disease (Chronic) Meralgia paresthetica of right side Mixed hearing loss of right ear Obesity hypoventilation syndrome On anticoagulant therapy (Chronic) On home oxygen therapy (Chronic) 5L/MIN NC HS Osteoarthritis (Chronic) Personal history of pulmonary embolism (2014) REASON FOR ELIQUIS Personal history of skin cancer Psoriatic arthritis Pulsatile tinnitus (Chronic) Thoracic spinal stenosis Type 2 diabetes mellitus (Chronic) Surgical History H/O cataract extraction LEFT/RT History of appendectomy History of back surgery (Inactive) X 5 INCLUDING FUSION History of breast biopsy LEFT (BENIGN) History of cardiac cath X 7 09/2012 NO STENTS History of cervical spinal surgery X 2 (GOOD ROM) History of colonoscopy History of esophagogastroduodenoscopy (EGD) History of knee replacement RT/LEFT History of placement of ear tubes BILAT. History of thyroidectomy, total SECONDARY TO MALIGNANCY S/P section x 2 S/P dilatation and curettage Family History Mother Diabetes Family history of diabetes mellitus Cardiac disorder Heart trouble Myocardial infarction Renal failure Family history of reaction to anesthesia Hypertension Stroke Gallbladder disease Grandfather Family hx of colon cancer Myocardial infarction Father Colon cancer Cardiac disorder Kidney stones Heart trouble Myocardial infarction Degenerative disc disease Lung disease Hypertension Stroke Aunt Colon cancer Grandmother (Maternal) Degenerative disc disease Cancer Sister Diabetes Breast cancer Cancer Hypertension Gallbladder disease Family history of diabetes mellitus Family/Other Kidney disease Brother Multiple sclerosis Uncle Myocardial infarction Grandfather (Maternal) Family history of diabetes mellitus Other Dementia Denies family history of Ovarian cancer Prostate cancer Adverse effect of anesthesia Bleeding disorder Social History Smoking Status: Current every day smoker Cigarettes Per Day: 1/2 pack a day; Second Hand Exposure: Yes; Do You Dip or Chew Tobacco: No; Tobacco Cessation Education Requested by Patient: No Hx Alcohol Use: No Hx Substance Use: No Preferred Language: [place] Communication Ability: Effective Visual Impairment: No Limitations Hearing Ability: Hard of Hearing Bulk Intake Worker Required: No Beliefs That Will Affect Care: None marital status: Current Living Situation: Spouse and Family Current Living Situation Comment: SON AND current occupational status: unemployed Other Information That Helps Us Care for You: No Feels Safe at Home: Yes Safety Concerns: Feels Safe At This Time Dental Care, Regularly: Yes Physical Activity Frequency: Does not Exercise Physical Activity Frequency Comment: LIMITED BY PHYSICAL CONDITION Seatbelt Use: always Review of Systems Constitutional: no fever and no chills Eyes: no problem reported Ear, Nose, Mouth, Throat: no problem reported Respiratory: no cough and no dyspnea Cardiovascular: no chest pain Gastrointestinal: + abdominal pain (epigastric) and + constipation (but normally with chronic diarrhea) Musculoskeletal: + joint pain Integumentary: no rash Neurologic: no problem reported Psychiatric: no problem reported Hematologic / Lymphatic: no unexplained weight loss Physical Exam Constitutional: WD/WN, vitals as above Eyes: PERRL, conjunctivae normal, anicteric sclerae ENMT: external ear and nose normal, oropharynx normal Neck: normal visual inspection Respiratory: normal respiratory effort, lungs clear to auscultation Cardiovascular: Rate/Rhythm: regular rate Gastrointestinal (Abdomen): normal bowel sounds, soft, nontender, no hepatosplenomegaly Skin: no rashes, warm and dry Neurologic: Speech / Cognition: normal speech Motor/Sensory: no tremor Psychiatric: A+Ox3, euthymic affect Results & Data ([facility]) Vital Signs (Past 12 Hours) Vital Signs Temp Pulse Pulse Resp BP BP Pulse Ox 04/21/20 07:45 36.9 C 66 17 154/73 H 100 04/21/20 07:26 64 04/21/20 04:00 36.4 C L 71 18 131/72 97 04/21/20 00:37 71 04/20/20 22:48 36.5 C 73 20 123/91 93 PG Care Time/CCT Total # of Minutes Spent Total Time Spent with Patient: Total time spent is greater than 50% in coordination of care (as documented) at patient's floor/unit and/or counseling patient: Coding Level of Care Code 40824 Inpt Consult Level 4 Diagnoses Acute epigastric pain R10.13 Chronic diarrhea K52.9
[2020-04-21] MEDS ORDERED: POLYETHYLENE (MIRALAX) 17 GM PACK PO SCH (10:30)
--- NOTE | 2020-04-21 16:14 | Discharge Summary ---
Date of Service April 21, 2020 Admission HPI Per Admitting Provider This patient is a 59-year-old female with a history of PAF on Eliquis, recurrent DVT/PE x4, depression/anxiety, obesity hypoventilation syndrome on 5 L nasal cannula nightly, hypothyroidism status post subtotal thyroidectomy for malignancy, psoriatic arthritis, hyperlipidemia, HTN, GERD, COPD, DM 2 with neuropathy, CAD, failed back syndrome, carotid artery stenosis, and meralgia paresthetica, who presents to the ER with upper abdominal pain and nausea with dry heaving for the last 2 days. She has been having diarrhea for the last 3 months and has been following with GI. Her diarrhea comes on anywhere from 2-10 times a day and is nonbloody. Because of the diarrhea, she was scheduled to have a colonoscopy this coming Tuesday. She then developed upper abdominal pain in addition to her chronic lower abdominal pain with diarrhea 2 days ago that has been constant. She has been having nausea and dry heaves but nothing is coming up and she has not been able to drink or eat much of anything in the last 2 days. The pain is moderate in severity, has improved with morphine. She denies any fevers. She has had a headache off and on for the last week that is moderate in nature across the top of her head. She was started on oxcarbazepine for her meralgia paresthetica in January 2020 and had the dose increased in February 2020-this is the only new medication she has had since February. In the ER, she was found to be severely hyponatremic with a sodium of 119. Her LFTs were normal, CBC was normal, and a right upper quadrant ultrasound was normal. An acute abdominal series was obtained and showed no free air, a few loops of mildly dilated small bowel without convincing evidence for bowel obstruction, and a right cardiophrenic angle density that could reflect eventration of the hemidiaphragm or a Morgagni hernia. She was given 2 L of normal saline, IV Compazine, and IV morphine and felt much improved. Principal Diagnosis Oxcarbazepine-related SIADH Discharge Exam Constitutional WD/WN, vitals as above Eyes EOM intact bilaterally; no conjunctival abnormality ENMT external ear and nose normal, oropharynx normal Neck trachea midline, no thyromegaly normal visual inspection Respiratory normal respiratory effort, lungs clear to auscultation no respiratory distress Cardiovascular RRR, no murmur, no edema Gastrointestinal (Abdomen) Inspection/Auscultation: abdomen normal to inspection; abdomen not distended Musculoskeletal no cyanosis or clubbing, extremities motor strength 5/5 Skin no rashes, warm and dry Neurologic moves all extremities and awake Psychiatric Orientation: alert, oriented to person and cooperative Discharge Data Allergies Allergy/AdvReac Type Severity Reaction Status Date / Time bee pollen Allergy Severe Anaphylaxis Verified 04/18/20 10:00 buprenorphine [From Suboxone] Allergy Severe VOMITTING, Verified 04/18/20 10:00 SKIN PROBLEMS fentanyl Allergy Severe SEVERE Verified 04/18/20 10:00 SEDATION, RESP DEPRESSION Penicillins Allergy Severe ANAPHYLAXIS Verified 04/18/20 10:00 pregabalin Allergy Severe SHORTNESS Verified 04/18/20 10:00 OF BREATH adhesive Allergy Intermediate Blister Verified 04/18/20 18:11 cephalexin Allergy Intermediate Nausea Verified 04/18/20 18:15 levofloxacin [From Levaquin] Allergy Intermediate CAUSES IBS Verified 04/18/20 10:00 ondansetron [From Zofran] Allergy Intermediate Migraine Verified 04/18/20 10:00 fluticasone Allergy Mild SEVERE Verified 04/18/20 10:00 THRUSH salmeterol Allergy Mild SEVERE Verified 04/18/20 10:00 THRUSH sulfamethoxazole Allergy Mild SEVERE Verified 04/18/20 10:00 NAUSEA Bactrim Allergy Unknown SEVERE Verified 01/30/18 09:22 NAUSEA naloxone [From Suboxone] Allergy Unknown Unknown Verified 04/18/20 18:10 trimethoprim Allergy Unknown SEVERE Verified 04/18/20 10:00 NAUSEA saccharin [From Sweeta] AdvReac Intermediate SEVERE Verified 04/18/20 10:00 VOMITING ketorolac AdvReac Mild headache Verified 04/18/20 10:00 Consultations 04/18/20 10:49 ED Decision to Admit Stat 04/18/20 11:43 Consult Gastroenterology Routine Ordered Studies 04/18/20 09:01 US abdomen limited Stat 04/18/20 11:43 CT chest wo con Urgent CT head/brain wo con Stat Hospital Course (1) Acute hyponatremia: Presented with epigastric abdominal pain and nausea with dry heaving in the setting of diarrhea x3 months. With poor p.o. intake the last 2 days prior to admission. Was also started on oxcarbazepine in the last 2 months. Baseline sodium is normal at 137 in 06/2019 All of her other medications have been chronic except for the oxcarbazepine which is new. Suspect her hyponatremia is all from hypovolemia and poor p.o. intake in the setting of diarrhea Serum osmolality low at 253 Urine osmolality 516, urine sodium 54, random cortisol albeit in the morning was normal at 18, and TSH is elevated at 8.02 By 04/21, the patient was back to baseline. Na had normalized over 3 days. I suspect the oxcarbazepine caused SIADH. It was held on discharge and she was asked to follow up with her prescriber. (2) Acute epigastric pain: Likely secondary to severe dehydration, hyponatremia, dry heaves She has normal LFTs, right upper quadrant ultrasound is normal -Hydrating with IV fluids as above and will see if this improves it -Continue PPI and Carafate as before -Add on low-dose Phenergan as needed for nausea as she is allergic to Zofran -Hold home ferrous sulfate as this can worsen nausea -Consulting GI to see if needs upper endoscopy -> Did not feel it was necessary. Follow up with them as planned. (3) Hypomagnesemia: Magnesium severely low at 1.3, likely secondary to GI losses -Replace with 3 g total of IV magnesium -Follow level in the morning (4) Chronic diarrhea: Diarrhea ongoing for the last 3 months, 2-10 times per day, nonbloody. With associated lower abdominal chronic pain She is not anemic. No fevers or chills She saw GI for the first time on 04/02 and was scheduled for colonoscopy I do not see that any stool studies have ever been done. Reports that fiber supplements made her constipated and that Imodium helped --Check C. difficile and stool culture with next stool sample -Consult GI for further opinion -Will check routine COVID-19 test that she was supposed to have done today anyway for pre-colonoscopy screening for this coming Tuesday. Would like to see her for colonoscopy on Tuesday. (5) AF (paroxysmal atrial fibrillation): With a history of paroxysmal atrial fibrillation mentioned after a TIA in 2013 and old cardiology records, but none noted on EKGs since then in our records - is on Eliquis and metoprolol In normal sinus rhythm here -> Held Eliquis for colonoscopy. (6) Obesity hypoventilation syndrome: Follows with pulmonology, Dr. Chan -Continue nocturnal O2 Is awaiting outpatient sleep study to get qualified for CPAP/BiPAP (7) Hypothyroidism (acquired): TSH elevated here as above at 8. (8) Hypertension: Blood pressures are elevated here -Continue home metoprolol succinate 25 mg p.o. twice daily (9) GERD (gastroesophageal reflux disease): Continue home PPI and Carafate (10) COPD (chronic obstructive pulmonary disease): Follows with pulmonology No acute issues -Continue home inhalers, and albuterol as needed Continue Singulair (11) Allergic rhinitis: Continue Singulair (12) Type 2 diabetes mellitus: Is on metformin at home Last hemoglobin A1c was 5.8% in 06/2018 -Hold metformin here -Give NovoLog sliding scale with meals Check Accu-Cheks before meals and at bedtime -Check hemoglobin A1c: 6 (13) Diabetic neuropathy: Continue home gabapentin, Cymbalta (14) Coronary artery disease: Cardiology records note that she has nonobstructive CAD based on catheterization in 2012 No ischemic changes on ECG here, no chest pain -Continue metoprolol, statin, apixaban (15) Carotid artery narrowing: Noted in chart Follows with cardiology Continue home apixaban and statin (16) Anxiety: Stable -Continue home trazodone, Cymbalta, buspirone (17) Depression: Stable, meds as above (18) Meralgia paresthetica of right side: Holding home oxcarbazepine for hyponatremia as above (19) Psoriatic arthritis: Noted in chart Is not on medications for this (20) On home oxygen therapy: Uses 5 L at bedtime (21) Hyperlipidemia: Continue statin (22) Osteoarthritis: Tylenol as needed for pain (23) DVT prophylaxis: Holding Eliquis for colonoscopy on tuesday. Total Time Total Time Spent Total Time Spent (In Minutes): 35 Discharge Plan Discharge Items Patient Disposition: Home - Self-Care Reason For Visit: NAUSEA, HYPONATREMIA Discharge Diagnosis: Hyponatremia Activity: Resume your previous activity Non-emergency contact: Primary Care Provider Call non-emergency contact if: you have any medication questions Follow-up/Referrals: Gerda Johnson DO [Primary Care Provider] - (PLEASE CONTACT OFFICE TOMORROW TO SCHEDULE A POST HOSPITAL DISCHARGE FOLLOW-UP APPOINTMENT ) Diet: Carb Consistent or DM2 and Heart Healthy Addtl Attending Provider Instructions: You were admitted to the hospital with low blood sodium (salt) (called hyponatremia). This was probably from a combination of nausea and a medication reaction of oxcarbazepine. We held this medication, and your sodium has returned to normal. In addition, your symptoms have improved. This is all great news! Please hold this medication until you see the provider who originally prescribed it. Please have your PCP check your sodium and kidney function in the next 1-2 weeks. Pending Studies at Discharge: No Stand-Alone Forms: [facility] myQaa, Smoking Cessation Medications and DC Order Prescriptions: Continued pravastatin 20 mg tablet 20 mg PO HS Qty: 90 RF: 3 (DME) Scooter Misc See Dose Instructions .ROUTE .MEDSUPPLY Qty: 1 RF: 0 metformin 1,000 mg tablet 1,000 mg PO BID Qty: 180 RF: 3 mupirocin 2 % ointment 1 appln TOP TID Qty: 22 RF: 2 cyanocobalamin (vitamin B-12) 500 mcg tablet 1,000 mcg PO DAILY Qty: 60 RF: 5 fluocinolone acetonide oil [DermOtic Oil] 0.01 % drops 5 drops OT BID 7 Days Qty: 20 RF: 0 (DME) Hospital Bed Misc See Rx Instructions .ROUTE .MEDSUPPLY Qty: 1 RF: 0 gabapentin 800 mg tablet 800 mg PO .COMPLEX Qty: 105 RF: 5 levocetirizine 5 mg tablet 5 mg PO HS Qty: 30 RF: 5 buspirone 10 mg tablet 10 mg PO BID Qty: 60 RF: 5 magnesium oxide 400 mg magnesium tablet 400 mg PO BID Qty: 60 RF: 5 hydroxyzine pamoate [Vistaril] 25 mg capsule 25 mg PO TID PRN (Reason: Anxiety) Qty: 60 RF: 5 folic acid 1 mg tablet 1 mg PO DAILY Qty: 30 RF: 5 levothyroxine 200 mcg tablet 200 mcg PO 6XWK Qty: 90 RF: 1 esomeprazole magnesium 40 mg capsule,delayed release(DR/EC) 40 mg PO BID Qty: 180 RF: 1 ferrous sulfate 325 mg (65 mg iron) tablet 325 mg PO BID Qty: 60 RF: 5 duloxetine [Cymbalta] 30 mg capsule,delayed release(DR/EC) 30 mg PO QAM Qty: 30 RF: 5 montelukast [Singulair] 10 mg tablet 10 mg PO DAILY PRN (Reason: allergy symptoms) Qty: 30 RF: 5 Trelegy Ellipta 100-62.5-25 mcg blister with device 1 puffs INH DAILY Qty: 60 RF: 3 sucralfate [Carafate] 1 gram tablet 1 g PO DAILY Qty: 90 RF: 1 trazodone 100 mg tablet 100 - 300 mg PO HS Qty: 90 RF: 1 nystatin 100,000 unit/gram cream 1 appln TOP TID Qty: 60 RF: 1 methocarbamol 500 mg tablet 1,000 mg PO QID PRN (Reason: pain) Qty: 240 RF: 0 duloxetine [Cymbalta] 60 mg capsule,delayed release(DR/EC) 60 mg PO HS Qty: 30 RF: 5 promethazine 12.5 mg tablet 12.5 mg PO Q6H PRN (Reason: nausea and vomiting) Qty: 20 RF: 0 Eliquis 5 mg tablet 5 mg PO BID Qty: 60 RF: 6 (DME) OneTouch Ultra Blue Test Strip strip See Dose Instructions .ROUTE .MEDSUPPLY Qty: 100 RF: 5 cholecalciferol (vitamin D3) 1,000 unit capsule 1,000 units PO DAILY Qty: 30 RF: 5 (DME) lancets [OneTouch Delica Lancets] 30 gauge misc See Dose Instructions .ROUTE .MEDSUPPLY Qty: 200 RF: 4 nitroglycerin [Nitrostat] 0.4 mg tablet, sublingual 0.4 mg Sublingual UD PRN (Reason: Pain) Qty: 30 RF: 5 (DME) Oxygen Home Liters Per Minute See Dose Instructions .ROUTE .MEDSUPPLY Qty: 1 RF: 0 albuterol sulfate 90 mcg/actuation HFA aerosol inhaler 2 puff INHALATION Q6H PRN (Reason: Wheezing) Qty: 18 RF: 5 albuterol sulfate 2.5 mg/0.5 mL solution for nebulization 2.5 mg INHALATION QID PRN (Reason: Wheezing) Qty: 30 RF: 5 clobetasol 0.05 % lotion 1 appln TOP BID PRN (Reason: itching) 14 Days Qty: 59 RF: 3 nystatin 100,000 unit/mL suspension 200,000 units BUCCAL QID PRN (Reason: Thrush) 10 Days Qty: 80 RF: 0 metoprolol succinate 25 mg tablet extended release 24 hr 25 mg PO BID Qty: 60 RF: 5 Hold Instructions: hypotensive Discontinued oxcarbazepine 300 mg tablet 300 mg PO BID 30 Days Qty: 60 RF: 0 Discharge Orders: Discharge Order (Routine); Ordered 04/21/20 Ordered By: Vasile Henderson/Other Patient Handouts: Managing Type 2 Diabetes Admission Data Admit Date/Time: 04/18/20 11:43 Attending Provider: Vasile Harris Admit Provider: Makayla Adamson Primary Care Provider: Gerda Johnson Other Providers: Emanuel Kelley ; Vasile Harris Other Interventions: Discharge Summary Assessment (RN) Last Done: 04/21/20 11:09 DC Date/Time DO NOT enter until pt leaves facility: 04/21/20 13:30 Coding Level of Care Code D/C Day Management >30 mins Diagnoses Acute hyponatremia E87.1 Acute epigastric pain R10.13 Hypomagnesemia E83.42 Chronic diarrhea K52.9 AF (paroxysmal atrial fibrillation) I48.0 Obesity hypoventilation syndrome E66.2 Hypothyroidism (acquired) E03.9 Hypertension I10 GERD (gastroesophageal reflux disease) K21.9 COPD (chronic obstructive pulmonary disease) J44.9 Allergic rhinitis J30.9 Type 2 diabetes mellitus E11.9 Diabetic neuropathy E11.40 Coronary artery disease I25.10 Carotid artery narrowing I65.29 Anxiety F41.9 Depression F32.9 Meralgia paresthetica of right side G57.11 Psoriatic arthritis L40.50 On home oxygen therapy Z99.81 Hyperlipidemia E78.5 Osteoarthritis M19.90 DVT prophylaxis Z29.9
== END 2020-04-21 13:30 | disposition home or self-care (01) | DRG 644 ==
LOC: ED 08:33 → SUATTDRO 11:43 → 2W 11:43

== ENCOUNTER 2020-07-15 10:08 | Inpatient (IN) ==
--- NOTE | 2020-06-20 14:51 | PAT Medication Instructions ---
Medication Instructions Date of Service June 20, 2020 Home Medications Medication Instructions Recorded Oxygen Home #1 ea 03/20/19 apixaban 5 mg tablet 5 mg PO BID #60 tab 03/20/19 blood sugar diagnostic #100 ea 03/20/19 lancets 30 gauge #200 ea 03/20/19 nitroglycerin 0.4 mg sublingual 0.4 mg SUBLINGUAL UD PRN #30 tab 03/20/19 tablet miscellaneous medical supply #1 ea 05/14/19 albuterol sulfate 2.5 mg/0.5 mL 2.5 mg INHALATION QID PRN #30 ea 09/13/19 solution for nebulization albuterol sulfate 90 mcg/actuation 2 puff INHALATION Q6H PRN #18 gm 09/13/19 aerosol inhaler clobetasol 0.05 % lotion 1 appln TOP BID PRN 14 Days #59 ml 10/16/19 miscellaneous medical supply #1 ea 11/14/19 esomeprazole magnesium 40 mg 40 mg PO BID #180 cap 01/29/20 capsule,delayed release ferrous sulfate 325 mg (65 mg 325 mg PO BID #60 tab 02/06/20 iron) tablet montelukast 10 mg tablet 10 mg PO DAILY PRN #30 tab 02/20/20 metformin 1,000 mg tablet 1,000 mg PO BID #180 tab 05/01/20 pravastatin 20 mg tablet 20 mg PO HS #90 tab 05/01/20 metoprolol succinate 25 mg 25 mg PO BID #60 tab 05/12/20 tablet,extended release 24 hr hydroxyzine pamoate 25 mg capsule 25 mg PO TID PRN #60 cap 05/16/20 duloxetine 60 mg capsule,delayed 60 mg PO BID 30 Days #60 cap 05/30/20 release magnesium oxide 400 mg PO TID #90 tab 05/30/20 sucralfate 1 gram tablet 1 g PO QID 14 Days #56 tab 06/04/20 promethazine 12.5 mg tablet 12.5 mg PO Q12H PRN #30 tab 06/05/20 methocarbamol 500 mg tablet 1,000 mg PO QID PRN #240 tab 06/06/20 hydrocodone 5 mg-acetaminophen 325 1 tab PO Q8H PRN #30 tab 06/12/20 mg tablet buspirone 10 mg tablet 10 mg PO BID #180 tab 06/13/20 gabapentin 800 mg tablet 800 mg PO .COMPLEX #105 tab 06/16/20 levocetirizine 5 mg tablet 5 mg PO HS #90 tab 06/16/20 apixaban 5 mg tablet 5 mg PO BID nitroglycerin 0.4 mg sublingual tablet 0.4 mg SUBLINGUAL UD PRN albuterol sulfate 2.5 mg/0.5 mL solution for nebulization 2.5 mg INHALATION QID PRN albuterol sulfate 90 mcg/actuation aerosol inhaler 2 puff INHALATION Q6H PRN clobetasol 0.05 % lotion 1 appln TOP BID PRN esomeprazole magnesium 40 mg capsule,delayed release 40 mg PO BID ferrous sulfate 325 mg (65 mg iron) tablet 325 mg PO BID montelukast 10 mg tablet 10 mg PO DAILY PRN metformin 1,000 mg tablet 1,000 mg PO BID pravastatin 20 mg tablet 20 mg PO HS metoprolol succinate 25 mg tablet,extended release 24 hr 25 mg PO BID hydroxyzine pamoate 25 mg capsule 25 mg PO TID PRN duloxetine 60 mg capsule,delayed release 60 mg PO BID 30 Days magnesium oxide 400 mg PO TID sucralfate 1 gram tablet 1 g PO QID promethazine 12.5 mg tablet 12.5 mg PO Q12H PRN methocarbamol 500 mg tablet 1,000 mg PO QID PRN Trelegy Ellipta 1 puffs INH QAM cholecalciferol (vitamin D3) 1,000 units PO QAM cyanocobalamin (vitamin B-12) 1,000 mcg PO QAM fluocinolone acetonide oil [DermOtic Oil] 5 drops OT BID PRN folic acid 1 mg PO QAM hydrocodone 5 mg-acetaminophen 325 mg tablet 1 tab PO Q8H PRN levothyroxine 200 mcg PO QAM mupirocin 1 appln TOP TID PRN nystatin 1 appln TOP TID PRN trazodone 300 mg PO HS buspirone 10 mg tablet 10 mg PO BID gabapentin 800 mg tablet 800 mg PO levocetirizine 5 mg tablet 5 mg PO HS Continue as directed nitroglycerin 0.4 mg sublingual tablet 0.4 mg SUBLINGUAL UD PRN (if needed) ASK your prescriber and surgeon apixaban 5 mg tablet 5 mg PO BID STOP taking 24 hours before surgery clobetasol 0.05 % lotion 1 appln TOP BID PRN mupirocin 1 appln TOP TID PRN nystatin 1 appln TOP TID PRN DO NOT take the morning of surgery ferrous sulfate 325 mg (65 mg iron) tablet 325 mg PO BID montelukast 10 mg tablet 10 mg PO DAILY PRN metformin 1,000 mg tablet 1,000 mg PO BID hydroxyzine pamoate 25 mg capsule 25 mg PO TID PRN magnesium oxide 400 mg PO TID sucralfate 1 gram tablet 1 g PO QID methocarbamol 500 mg tablet 1,000 mg PO QID PRN cholecalciferol (vitamin D3) 1,000 units PO QAM cyanocobalamin (vitamin B-12) 1,000 mcg PO QAM folic acid 1 mg PO QAM Take morning of surgery With a small sip of water, OTHERWISE NOTHING TO EAT OR DRINK AFTER MIDNIGHT: albuterol sulfate 2.5 mg/0.5 mL solution for nebulization 2.5 mg INHALATION QID PRN (if needed) albuterol sulfate 90 mcg/actuation aerosol inhaler 2 puff INHALATION Q6H PRN (use if needed; please bring with you to hospital day of surgery if possible) esomeprazole magnesium 40 mg capsule,delayed release 40 mg PO BID metoprolol succinate 25 mg tablet,extended release 24 hr 25 mg PO BID duloxetine 60 mg capsule,delayed release 60 mg PO BID promethazine 12.5 mg tablet 12.5 mg PO Q12H PRN (if needed) Trelegy Ellipta 1 puffs INH QAM fluocinolone acetonide oil [DermOtic Oil] 5 drops OT BID PRN (if needed) hydrocodone 5 mg-acetaminophen 325 mg tablet 1 tab PO Q8H PRN (okay to take up to 4 hours prior to surgery if needed) levothyroxine 200 mcg PO QAM buspirone 10 mg tablet 10 mg PO BID Take evening before surgery albuterol sulfate 2.5 mg/0.5 mL solution for nebulization 2.5 mg INHALATION QID PRN (if needed) albuterol sulfate 90 mcg/actuation aerosol inhaler 2 puff INHALATION Q6H PRN (if needed) esomeprazole magnesium 40 mg capsule,delayed release 40 mg PO BID ferrous sulfate 325 mg (65 mg iron) tablet 325 mg PO BID metformin 1,000 mg tablet 1,000 mg PO BID pravastatin 20 mg tablet 20 mg PO HS metoprolol succinate 25 mg tablet,extended release 24 hr 25 mg PO BID hydroxyzine pamoate 25 mg capsule 25 mg PO TID PRN (if needed) duloxetine 60 mg capsule,delayed release 60 mg PO BID magnesium oxide 400 mg PO TID sucralfate 1 gram tablet 1 g PO QID promethazine 12.5 mg tablet 12.5 mg PO Q12H PRN (if needed) methocarbamol 500 mg tablet 1,000 mg PO QID PRN (if needed) fluocinolone acetonide oil [DermOtic Oil] 5 drops OT BID PRN (if needed) hydrocodone 5 mg-acetaminophen 325 mg tablet 1 tab PO Q8H PRN (okay to take up to 4 hours prior to surgery if needed) trazodone 300 mg PO HS buspirone 10 mg tablet 10 mg PO BID gabapentin 800 mg tablet 800 mg PO levocetirizine 5 mg tablet 5 mg PO HS Other Notes If you have any questions please call us at [phone] or [phone] or [phone] or [phone]
--- NOTE | 2020-06-24 12:40 | Anesthesiology Consultation ---
Date of Service June 24, 2020 Assessment & Plan (1) Encounter for pre-operative examination: Chart Review Chart Review: Pending: Refer to Additional Notes / Consult section (surgeon ordered PCP clearance and preop Covid testing ) and Patient seen in Pre Admission Testing Awaiting surgeon ordered PCP clearance scheduled 06/26 Surgeon's office informed of abnormal UA. - Check BSG AM DOS Per PAT appt on 06/24/20, patient resides in [facility]. Travels to [facility] for medical appts. Wears mask, uses good hand hygiene and socially distances. No known Covid positive contacts or Covid related symptoms. Per patient- scheduled 07/04/20 for Covid testing. Educated on importance of self quarantining, social distancing and wearing mask in public both for the patient and household contacts. Seen by PCP 05/09/2020 = gastritisnot at goal, continue with GI. Chronic diarrheapersistent, continue with GI. Meralgia paresthetica of right sidestable, Trileptal stopped due to hyponatremia. Continue with Lamictal and follow-up with neuro. Thoracic spinal stenosis/lumbar disc diseaseongoing, referred to pain management. Atrial fibrillationnormal sinus rhythm today, continue metoprolol and follow-up with cardio. Psoriatic arthritiscontinue with room. Hypothyroidismvariablecontinue with Endo. Hyperlipidemiastable. Type 2 diabeteswell controlled, continue current medications. Diabetic neuropathyfairly controlled, continue current medications. Depression/anxiety stable, continue current medications. COPDfair control, continue with pulmonary. CADstable continue with cardio. Hypertensionstable, continue current meds. Chronic interstitial cystitisstable, continue with urology. Anemiastable. On anticoagulation therapy due to blood clotting disorder and history of PE/DVTon chronic anticoagulation therapy. Has transition from Coumadin to Eliquis. Follow-up in 4 months. Virtual neuro visit 05/07/2020 = patient with history of meralgia paresthetica involving the right thigh. Did not tolerate Trileptal due to hyponatremia and was briefly hospitalized. Trileptal was discontinued. Continues with maximal dose of gabapentin and Cymbalta. Also continuous chronic low back pain with radiculopathyhas had series of lumbar nerve blocks without much benefit. Patient has appointment pending with Dr. Hairston to discuss potential surgical options. Patient given a trial of Lamictal as adjunctive treatment for her chronic neuropathic pain Seen by pulmonary 10/16/2019 = seen for follow-up on COPD, anemia, obesity hypoventilation syndrome. Patient has recently recovered from influenza B. Continues with post viral cough. Patient was transitioned from Breo to Spiriva to Trelegy. Continue with albuterol as needed. PFTs ordered. Smoking cessation recommended. Plan to check arterial blood gas analysis as well as overnight attended polysomnogram to evaluate for overlap syndrome/obesity hypo ventilation syndrome. Patient is not a candidate for home sleep testing given underlying hypoxemia and cardiopulmonary disease. Last seen by cardio 04/12/19= patient presents for an opinion regarding her intermittent hypotension. Reviewed echo from January 2019showing no significant issues. Patient is able to carry on activities of daily life with the assistance of a cane. Patient was diagnosed with paroxysmal A. fib after TIA in 2013. She experiences approximately 2 episodes of A. fib every monthuses a Valsalva maneuver to break her dysrhythmia. Patient tolerating anticoagulation with Eliquis. " The patient is stable from a cardiovascular standpoint. Fortunately, her intermittent hypotension is minimally symptomatic. Suspect this may be related to her significant weight loss over the last year. She demonstrates normal left ventricular systolic function on echocardiogram done back in November. No further cardiac evaluation necessary at this time." Follow- up in office as needed. Teaching & Discussion Pre-Anesthesia Teaching/Discussion Notes: Instructed NPO after midnight before surgery,except medications with 15 cc of water. Medication instructions provided according to the PAT guidelines. History Surgery Operation Date: 07/09/20 07:45 Proposed Procedures p L4-S1 Decompression Fusion, Possible L1-S1, Spinal Cord Monitoring - Ata Hairston, Height/Weight Height: 5 ft 5 in Weight: 121.2 kg Allergies Allergy/AdvReac Type Severity Reaction Status Date / Time bee pollen Allergy Severe Anaphylaxis Verified 06/12/20 09:50 buprenorphine [From Suboxone] Allergy Severe VOMITTING, Verified 06/12/20 09:50 SKIN PROBLEMS fentanyl Allergy Severe SEVERE Verified 06/12/20 09:50 SEDATION, RESP DEPRESSION Penicillins Allergy Severe ANAPHYLAXIS Verified 06/12/20 09:50 pregabalin Allergy Severe SHORTNESS Verified 06/12/20 09:50 OF BREATH adhesive Allergy Intermediate Blister-WITH Verified 06/12/20 09:50 SOME PLASTIC TAPE cephalexin Allergy Intermediate Nausea Verified 06/12/20 09:50 levofloxacin [From Levaquin] Allergy Intermediate CAUSES IBS Verified 06/12/20 09:50 ondansetron [From Zofran] Allergy Intermediate Migraine Verified 06/12/20 09:50 fluticasone Allergy Mild SEVERE Verified 06/12/20 09:50 THRUSH salmeterol Allergy Mild SEVERE Verified 06/12/20 09:52 THRUSH Bactrim Allergy Unknown SEVERE Verified 01/30/18 09:22 NAUSEA naloxone [From Suboxone] Allergy Unknown SEVERE Verified 06/12/20 09:52 NAUSEA sulfamethoxazole Allergy Unknown SEVERE Verified 06/12/20 09:52 NAUSEA trimethoprim Allergy Unknown SEVERE Verified 06/12/20 09:52 NAUSEA oxcarbazepine AdvReac Severe Severe Verified 06/24/20 12:53 [From Trileptal] stomach issues saccharin [From Sweeta] AdvReac Intermediate SEVERE Verified 06/12/20 09:52 VOMITING ketorolac AdvReac Mild headache Verified 06/12/20 09:52 Medications Home Medications Medication Instructions Recorded Confirmed Last Taken Oxygen Home #1 ea 03/20/19 05/29/20 Unknown apixaban 5 mg tablet 5 mg PO BID #60 tab 03/20/19 06/12/20 04/18/20 blood sugar diagnostic #100 ea 03/20/19 05/29/20 Unknown lancets 30 gauge #200 ea 03/20/19 05/29/20 Unknown nitroglycerin 0.4 mg sublingual 0.4 mg SUBLINGUAL UD PRN #30 tab 03/20/19 06/12/20 Unknown tablet miscellaneous medical supply #1 ea 05/14/19 05/29/20 Unknown albuterol sulfate 2.5 mg/0.5 mL 2.5 mg INHALATION QID PRN #30 ea 09/13/19 06/12/20 04/23/20 solution for nebulization albuterol sulfate 90 mcg/actuation 2 puff INHALATION Q6H PRN #18 gm 09/13/19 06/12/20 04/23/20 06:30 aerosol inhaler clobetasol 0.05 % lotion 1 appln TOP BID PRN 14 Days #59 ml 10/16/19 06/12/20 Unknown miscellaneous medical supply #1 ea 11/14/19 05/29/20 Unknown esomeprazole magnesium 40 mg 40 mg PO BID #180 cap 01/29/20 06/12/20 04/22/20 capsule,delayed release ferrous sulfate 325 mg (65 mg 325 mg PO BID #60 tab 02/06/20 06/12/20 04/18/20 iron) tablet montelukast 10 mg tablet 10 mg PO DAILY PRN #30 tab 02/20/20 06/12/20 Unknown metformin 1,000 mg tablet 1,000 mg PO BID #180 tab 05/01/20 06/12/20 Unknown pravastatin 20 mg tablet 20 mg PO HS #90 tab 05/01/20 06/12/20 Unknown metoprolol succinate 25 mg 25 mg PO BID #60 tab 05/12/20 06/12/20 Unknown tablet,extended release 24 hr hydroxyzine pamoate 25 mg capsule 25 mg PO TID PRN #60 cap 05/16/20 06/12/20 Unknown duloxetine 60 mg capsule,delayed 60 mg PO BID 30 Days #60 cap 05/30/20 06/12/20 Unknown release magnesium oxide 400 mg PO TID #90 tab 05/30/20 06/12/20 Unknown sucralfate 1 gram tablet 1 g PO QID 14 Days #56 tab 06/04/20 06/12/20 Unknown promethazine 12.5 mg tablet 12.5 mg PO Q12H PRN #30 tab 06/05/20 06/12/20 Unknown methocarbamol 500 mg tablet 1,000 mg PO QID PRN #240 tab 06/06/20 06/12/20 Unknown Trelegy Ellipta 1 puffs INH [facility] 06/12/20 06/12/20 Unknown cholecalciferol (vitamin D3) 1,000 units PO QAM 06/12/20 06/12/20 Unknown cyanocobalamin (vitamin B-12) 1,000 mcg PO QAM 06/12/20 06/12/20 Unknown fluocinolone acetonide oil 5 drops OT BID PRN 06/12/20 06/12/20 Unknown [DermOtic Oil] folic acid 1 mg PO QAM 06/12/20 06/12/20 Unknown hydrocodone 5 mg-acetaminophen 325 1 tab PO Q8H PRN #30 tab 06/12/20 Unknown mg tablet levothyroxine 200 mcg PO QAM 06/12/20 06/12/20 Unknown mupirocin 1 appln TOP TID PRN 06/12/20 06/12/20 Unknown nystatin 1 appln TOP TID PRN 06/12/20 06/12/20 Unknown trazodone 300 mg PO HS 06/12/20 06/12/20 Unknown buspirone 10 mg tablet 10 mg PO BID #180 tab 06/13/20 Unknown gabapentin 800 mg tablet 800 mg PO .COMPLEX #105 tab 06/16/20 Unknown levocetirizine 5 mg tablet 5 mg PO HS #90 tab 06/16/20 Unknown Past Medical History Medical History (Updated 06/25/20 @ 15:21 by Jayleen Waller PA-C) AF (paroxysmal atrial fibrillation) Takes Eliquis Allergic rhinitis Anxiety Carotid artery narrowing FOLLOWED BY DR. PEÑA- PER 2017 CTA OF NECK- LEFT ICA 56% STENOSIS, NO HEMODYNAMICALLY SIG STENOSSI TO RIGHT ICA Cervicalgia Chronic anticoagulation " CLOTTING PROBLEM' x 5 YRS F/U DR PATTERSON Chronic interstitial cystitis COPD (chronic obstructive pulmonary disease) Breathing stable and controlled Coronary artery disease No hx stents or angioplasty. Minor nonobstructive CAD per September 2012 cath per cardio note Degenerative joint disease of shoulder BILATERAL Depression Dermatitis of both ear canals Diabetic neuropathy Diffuse myofascial pain syndrome Esophageal dysphagia GERD (gastroesophageal reflux disease) Well controlled and stable History of DE (myocardial infarction) (2009) No stents or bypass Hx of deep venous thrombosis 3 YEARS AGO (REASON FOR ELIQUIS)- NO ISSUE SINCE Hx of thyroid cancer S/P THYROIDECTOMY AND ONE ROUND OF XRT Hx: recurrent pneumonia NO CURRENT ISSUES Hyperlipidemia Hypertension BP FLUCTUATES Hypothyroidism (acquired) Meralgia paresthetica of right side Follows with neuro Mixed hearing loss of right ear NO HEARING AIDS Obesity hypoventilation syndrome On home oxygen therapy 5L/MIN NC HS Personal history of pulmonary embolism (2014) REASON FOR ELIQUIS Personal history of skin cancer S/P REMOVAL ON RIGHT LEG Psoriatic arthritis No meds at this time- follows with rheum Type 2 diabetes mellitus WELL CONTROLLED AND STABLE Exercise / Class Metabolic Activity III < 4 Walking/Shop/Light housework (NO CHEST PAIN OR SOB WITH SHORT DISTANCES FLAT SURFACE AMBULATION ) Past Family History Family History Mother Diabetes Family history of diabetes mellitus Cardiac disorder Heart trouble Myocardial infarction Renal failure Family history of reaction to anesthesia Hypertension Stroke Gallbladder disease Grandfather Family hx of colon cancer Myocardial infarction Father Colon cancer Cardiac disorder Kidney stones Heart trouble Myocardial infarction Degenerative disc disease Lung disease Hypertension Stroke Aunt Colon cancer Diabetes Grandmother (Maternal) Degenerative disc disease Cancer Sister Diabetes Family history of diabetes mellitus Breast cancer Cancer Hypertension Gallbladder disease Family/Other Kidney disease Brother Multiple sclerosis Uncle Myocardial infarction Grandfather (Maternal) Family history of diabetes mellitus Aunt Diabetes Aunt Diabetes Aunt Diabetes Aunt Diabetes Aunt Diabetes Other Dementia Denies family history of Ovarian cancer Prostate cancer Adverse effect of anesthesia Bleeding disorder Past Surgical History Surgical History H/O cataract extraction LEFT/RT History of appendectomy History of back surgery X 5 INCLUDING FUSION History of breast biopsy LEFT (BENIGN) History of cardiac cath X 7 09/2012 NO STENTS History of cervical spinal surgery X 2 (GOOD ROM) History of colonoscopy History of esophagogastroduodenoscopy (EGD) History of knee replacement RT/LEFT History of placement of ear tubes BILAT. History of thyroidectomy, total SECONDARY TO MALIGNANCY S/P section x 2 S/P dilatation and curettage Past Anesthesia History No Hx of Anesthesia Complications and No Family Hx of Anesthesia Complications (WITH EXCEPTION TO MOTHER - PONV ) History of PONV No Hx of PONV and No Hx of Motion Sickness Social History Smoking Status: Current every day smoker tobacco type: cigarettes Smoking cigarettes per day: 10 CIGS A DAY X MANY YRS Do You Dip or Chew Tobacco: No Hx Alcohol Use: No Hx Substance Use: No substance use type: does not use Review of Systems Hx of seizures in childhood- no meds since 4 years of age- no issues since. Feels secondary to Citizen [place] measles Hx of blood transfusion 2017- secondary to severe anemia Patient denies chest pain, shortness of breath, dyspnea on exertion, cough, wheezing, palpitations. No hx of stroke, apnea/snoring. Physical Exam Vital Signs VITALS BP 144/76 (manually) P 66 TEMP SP02 RESP Constitutional + morbidly obese; no acute distress ENMT Mouth: no TMJ clicking Thyromental Distance: > or= 3.5 Finger Breadths (4.0) Mallampati Class: I Missing all teeth Neck + short neck (mild ) and + limited neck extension (significant ) Respiratory normal respiratory effort; no respiratory distress Auscultation: + diminished lung sounds (mild throughout ); no wheezes Cardiovascular Rate/Rhythm: regular rate and regular rhythm Heart Sounds: no murmur Heart sounds diminished throughout Musculoskeletal Spine: + pain with cervical ROM (mild ) Neurologic moves all extremities Psychiatric Orientation: alert Testing Laboratory Results 06/24/20 13:15 06/24/20 13:15 PT 10.4 Seconds (9.0-12.0) 06/24/20 13:15 INR 1.0 (0.9-1.1) 06/24/20 13:15 APTT 33.1 Seconds (21.0-31.0) H 06/24/20 13:15 Urine Color Dark Yellow 06/24/20 13:15 Urine Appearance Clear (Clear) 06/24/20 13:15 Urine pH 5.5 (4.5-7.5) 06/24/20 13:15 Ur Specific Balm 1.028 (1.000-1.030) 06/24/20 13:15 Urine Protein 1+ (Negative) H 06/24/20 13:15 Urine Glucose (UA) Negative (Negative) 06/24/20 13:15 Urine Ketones Trace (Negative) H 06/24/20 13:15 Urine Nitrite Negative (Negative) 06/24/20 13:15 Ur Leukocyte Esterase Negative (Negative) 06/24/20 13:15 Urine WBC (Auto) 1-5 /hpf (0-5) 06/24/20 13:15 Urine RBC (Auto) 5-10 /hpf (0-4) H 06/24/20 13:15 U Hyaline Cast (Auto) 0 /lpf (0-5) 06/24/20 13:15 U Epithel Cells (Auto) >30 /lpf (0-5) H 06/24/20 13:15 Urine Bacteria (Auto) 1+ (Negative) H 06/24/20 13:15 Blood Type A Positive 06/24/20 13:15 Antibody Screen NEGATIVE 06/24/20 13:15 06/24/20 13:15 Urine Culture - Final Urine,Clean Catch Three types or organisms present, all moderate counts probable skin bubba. No further identifications or sensitivities to follow. 05/14/20= HGB A1C: 6.1 Electrocardiogram Date: 04/18/20 Findings: + NSR @ (68) Normal EKG. Echocardiogram Date: 11/22/18 EF: 50-60% LV Function: normal RWMA: + none Other Findings: + LVH (Mild to moderate/concentric) Valvular Disease: + no significant valvular disease Stress Test Date: 08/10/16 Type: nuclear There is no EKG criteria for myocardial ischemia. Myocardial perfusion scan is negative for ischemia; there is a small basal lateral/basal inferior lateral infarct. EF =61%. Wall motion is normal. Other Testing Chest CT 04/18/20= no suspicious pulmonary nodules or masses. No acute findings within the chest. Moderate cardiomegaly. No pericardial effusion. Moderate coronary artery calcification. No pneumothorax or pleural effusions is noted. No consolidation to suggest pneumonia. Mild subpleural groundglass opacities reflect atelectasis. Note is made of mild eventration of the right hemidiaphragm which accounts for the finding of chest radiograph. Mild bronchial wall thickening was noted. No suspicious pulmonary nodules. CTA of neck 05/13/2018 = The right carotid revealed no evidence of aneurysm and no evidence of dissection. There is no evidence of hemodynamic significant stenosis.There are atheromatous changes at the left carotid bifurcation. There is a 56%stenosis of the proximal left internal carotid artery.There is no evidence of hemodynamically significant vertebral stenosis. There is no evidence of vertebral dissection. The right vertebral artery terminates in a PICA branch
[2020-06-24 13:46] LABS: Basophils # (auto) 0.03 K/uL (0-0.2); Basophils % (auto) 0.3 %; Eosinophils # (auto) 0.23 K/uL (0-0.5); Eosinophils % (auto) 2.5 %; Hematocrit (blood only) 37.5 % (37-47); Hemoglobin 11.5 g/dL (12.0-16.0); Immature Granulocytes # (auto) 0.03 K/uL (0.00-0.02); Immature Granulocytes % (auto) 0.3 %; Lymphocytes # (auto) 2.63 K/uL (1.2-3.4); Lymphocytes % (auto) 28.8 %; Mean Corpuscular Hemoglobin 28.3 pg (25-34); Mean Corpuscular Hgb Conc 30.7 g/dL (32-36); Mean Corpuscular Volume 92.4 fL (80-100); Mean Platelet Volume 9.7 fL (7.4-10.4); Monocytes % (auto) 5.5 %; Neutrophils # (auto) 5.72 K/uL (1.4-6.5); Neutrophils % (auto) 62.6 %; Platelet Count 327 K/uL (130-400); RDW Coefficient of Variation 15.3 % (11.5-14.5); RDW Standard Deviation 52.4 fL (36.4-46.3); Red Blood Count 4.06 M/uL (4.2-5.4); White Blood Count 9.14 K/uL (4.8-10.8)
[2020-06-24 13:57] LABS: BUN Creatinine Ratio 12.5 (10-20); Calcium 8.6 mg/dl (8.5-10.1); Creatinine Clr Calc Pharmacy 81.2 ml/min; Est GFR (African American) 74.9; Est GFR (Non-African American) 64.6; Potassium 4.8 mmol/L (3.5-5.1)
[2020-06-24 14:06] LABS: Partial Thromboplastin Ratio 1.2; Partial Thromboplastin Time 33.1 Seconds (21.0-31.0); Prothrombin Time 10.4 Seconds (9.0-12.0)
[2020-06-24 14:18] LABS: Appearance Urine Clear (Clear); Bacteria Urine Automated 1+ (Negative); Bilirubin Urine Negative (Negative); Blood Urine Negative (Negative); Cast Urine Automated 0 /lpf (0-5); Color Urine Dark Yellow; Epithelial Cell Urine Auto >30 /lpf (0-5); Glucose Urine UA Negative (Negative); Ketones Urine Trace (Negative); Leukocyte Esterase Urine Negative (Negative); Nitrite Urine Negative (Negative); Protein Urine 1+ (Negative); Specific Gravity Urine 1.028 (1.000-1.030); Urobilinogen Urine Negative (Negative); pH Urine 5.5 (4.5-7.5)
[~2020-07-15 10:08] MED LIST changes: -ASCA500 PO; -CHOL1000 PO; -CIPR-255 PO; +CLINDAMYCIN 600 MG/54 ML BAG IV SCH; -CYAN10005 PO; -CYM/30 PO; -DSY100 PO; -DULO60CA44 PO; -ENOX120I SQ; -FERR1TAB13 PO; -FOLI1TAB8 PO; -FURO-85 PO; -GABA-1220 PO; -GABA800T PO; +GABAPENTIN 600 MG DOSE PO SCH; -GLUC10007 PO; -HYDR-5806 PO; -HYDR25CA PO; -LEVO-14 PO; -LEVO200T6 PO; -LEVO75TA5 PO; -LIDOCAINE PATCH TOP; +LR 15ML/HR IV SCH; -MAGN400T6 PO; -MONT1TAB3 PO; -NTRSL3 UT; -OXGN; -PRAV20TA PO; -PRT/20 PO; -PRVHFAIN INH; -RRALBUTNEB NEB; -SENN-61 PO; -SPRIN/30 INH; -SUCR1TAB PO; -TPRSR/25 PO
[2020-07-15] MEDS ORDERED: GABAPENTIN 600 MG DOSE PO SCH (10:33)
[2020-07-15] MEDS ORDERED: ePHEDrine sulfate 50 MG/ML AMP IV PRN (10:40)
[2020-07-15] MEDS ORDERED: PHENYLEPHRINE 100MCG/ML 5ML SYR IV PRN (10:40)
[2020-07-15] MEDS ORDERED: LABETALOL HCL IV 5 MG/ML 20ML IV PRN (10:40)
[2020-07-15] MEDS ORDERED: ATROPINE SULFATE 0.1 MG/ML 10ML SYR IV PRN (10:40)
[2020-07-15] MEDS ORDERED: MIDAZOLAM HCL 1 MG/ML 2ML VIAL ONE (11:17)
[2020-07-15] MEDS ORDERED: fentaNYL citrate 100 MCG/2 ML VIAL ONE ×2 (11:17→13:07)
[2020-07-15] MEDS ORDERED: LIDOCAINE HCL 2% 2 ML VIAL/AMP(20MG/ML) INFIL ONE (11:17)
[2020-07-15] MEDS ORDERED: PROPOFOL IV EMULSION 10 MG/ML 20 ML VIAL IV ONE (11:17)
--- NOTE | 2020-07-15 12:05 | History & Physical Bridge Note ---
Date of Service July 15, 2020 History & Physical Bridge Note I have examined the patient, reviewed the History & Physical and in the interval since the performance of the History & Physical I have noted the following changes of clinical significance: no changes noted
--- NOTE | 2020-07-15 12:07 | History & Physical Report ---
Date of Service July 15, 2020 Assessment & Plan (1) Neurogenic claudication due to lumbar spinal stenosis: Admission and Anticipated Discharge Date Admission Date: L4-S1 decompression fusion History of Present Illness Chief Complaint: Back and leg pain Primary Care Provider: Gerda Johnson DO This is a 59-year-old female who presents with chronic persistent back and leg pain. After failing course of nonoperative care she is here for surgical intervention. Allergies Allergy/AdvReac Type Severity Reaction Status Date / Time bee pollen Allergy Severe Anaphylaxis Verified 07/15/20 10:33 buprenorphine [From Suboxone] Allergy Severe VOMITTING, Verified 07/15/20 10:33 SKIN PROBLEMS fentanyl Allergy Severe SEVERE Verified 07/15/20 10:33 SEDATION, RESP DEPRESSION Penicillins Allergy Severe ANAPHYLAXIS Verified 07/15/20 10:33 pregabalin Allergy Severe SHORTNESS Verified 07/15/20 10:33 OF BREATH adhesive Allergy Intermediate Blister-WITH Verified 07/15/20 10:33 SOME PLASTIC TAPE cephalexin Allergy Intermediate Nausea Verified 07/15/20 10:33 levofloxacin [From Levaquin] Allergy Intermediate CAUSES IBS Verified 07/15/20 10:33 ondansetron [From Zofran] Allergy Intermediate Migraine Verified 07/15/20 10:33 fluticasone Allergy Mild SEVERE Verified 07/15/20 10:33 THRUSH salmeterol Allergy Mild SEVERE Verified 07/15/20 10:33 THRUSH Bactrim Allergy Unknown SEVERE Verified 01/30/18 09:22 NAUSEA naloxone [From Suboxone] Allergy Unknown SEVERE Verified 07/15/20 10:33 NAUSEA sulfamethoxazole Allergy Unknown SEVERE Verified 07/15/20 10:33 NAUSEA trimethoprim Allergy Unknown SEVERE Verified 07/15/20 10:33 NAUSEA oxcarbazepine AdvReac Severe Severe Verified 07/15/20 10:33 [From Trileptal] stomach issues saccharin [From Sweeta] AdvReac Intermediate SEVERE Verified 07/15/20 10:33 VOMITING ketorolac AdvReac Mild headache Verified 07/15/20 10:33 Home Medications Home Medications Medication Instructions Recorded Confirmed Type Oxygen Home #1 ea 03/20/19 06/26/20 Rx apixaban 5 mg tablet 5 mg PO BID #60 tab 03/20/19 07/15/20 Rx blood sugar diagnostic #100 ea 03/20/19 06/26/20 Rx lancets 30 gauge #200 ea 03/20/19 06/26/20 Rx nitroglycerin 0.4 mg sublingual 0.4 mg SUBLINGUAL UD PRN #30 tab 03/20/19 07/15/20 Rx tablet miscellaneous medical supply #1 ea 05/14/19 06/26/20 Rx albuterol sulfate 2.5 mg/0.5 mL 2.5 mg INHALATION QID PRN #30 ea 09/13/19 07/15/20 Rx solution for nebulization albuterol sulfate 90 mcg/actuation 2 puff INHALATION Q6H PRN #18 gm 09/13/19 07/15/20 Rx aerosol inhaler clobetasol 0.05 % lotion 1 appln TOP BID PRN 14 Days #59 ml 10/16/19 07/15/20 Rx miscellaneous medical supply #1 ea 11/14/19 06/26/20 Rx esomeprazole magnesium 40 mg 40 mg PO BID #180 cap 01/29/20 07/15/20 Rx capsule,delayed release montelukast 10 mg tablet 10 mg PO DAILY PRN #30 tab 02/20/20 07/15/20 Rx pravastatin 20 mg tablet 20 mg PO HS #90 tab 05/01/20 07/15/20 Rx metoprolol succinate 25 mg 25 mg PO BID #60 tab 05/12/20 06/26/20 Rx tablet,extended release 24 hr hydroxyzine pamoate 25 mg capsule 25 mg PO TID PRN #60 cap 05/16/20 07/15/20 Rx duloxetine 60 mg capsule,delayed 60 mg PO BID 30 Days #60 cap 05/30/20 07/15/20 Rx release magnesium oxide 400 mg PO TID #90 tab 05/30/20 06/26/20 Rx sucralfate 1 gram tablet 1 g PO QID 14 Days #56 tab 06/04/20 07/15/20 Rx promethazine 12.5 mg tablet 12.5 mg PO Q12H PRN #30 tab 06/05/20 07/15/20 Rx Trelegy Ellipta 1 puffs INH QAM 06/12/20 07/15/20 History cholecalciferol (vitamin D3) 1,000 units PO QAM 06/12/20 07/15/20 History fluocinolone acetonide oil 5 drops OT BID PRN 06/12/20 06/26/20 History [DermOtic Oil] levothyroxine 200 mcg PO QAM 06/12/20 07/15/20 History mupirocin 1 appln TOP TID PRN 06/12/20 07/15/20 History nystatin 1 appln TOP TID PRN 06/12/20 07/15/20 History buspirone 10 mg tablet 10 mg PO BID #180 tab 06/13/20 07/15/20 Rx gabapentin 800 mg tablet 800 mg PO .COMPLEX #105 tab 06/16/20 07/15/20 Rx levocetirizine 5 mg tablet 5 mg PO HS #90 tab 06/16/20 07/15/20 Rx metformin 1,000 mg tablet 1,000 mg PO BID #180 tab 06/30/20 07/15/20 Rx trazodone 100 mg tablet 300 mg PO HS #90 tab 07/03/20 07/15/20 Rx methocarbamol 500 mg tablet 1,000 mg PO QID PRN #240 tab 07/04/20 07/15/20 Rx nystatin 100,000 unit/gram topical 1 applic TOPICAL BID #30 g 07/04/20 07/15/20 Rx powder cyanocobalamin (vitamin B-12) 500 1,000 mcg PO QAM #60 tab 07/09/20 07/15/20 Rx mcg tablet ferrous sulfate 325 mg (65 mg 325 mg PO BID #60 tab 07/09/20 07/15/20 Rx iron) tablet folic acid 1 mg tablet 1 mg PO QAM #30 tab 07/09/20 07/15/20 Rx hydrocodone 5 mg-acetaminophen 325 1 tab PO Q8H PRN #30 tab 07/09/20 07/15/20 Rx mg tablet enoxaparin [Lovenox] mg SUBCUT 07/15/20 History Past Med/Surg History Medical History (Updated 07/15/20 @ 12:07 by Ata Hairston DO) AF (paroxysmal atrial fibrillation) Takes Eliquis Allergic rhinitis Anemia Anxiety Carotid artery narrowing FOLLOWED BY DR. PEÑA- PER 2018 CTA OF NECK- LEFT ICA 56% STENOSIS, NO HEMODYNAMICALLY SIG STENOSSI TO RIGHT ICA Cervicalgia Chronic anticoagulation " CLOTTING PROBLEM' x 5 YRS F/U DR PATTERSON Chronic interstitial cystitis COPD (chronic obstructive pulmonary disease) Breathing stable and controlled Coronary artery disease No hx stents or angioplasty. Minor nonobstructive CAD per September 2012 cath per cardio note Degenerative joint disease of shoulder BILATERAL Depression Dermatitis of both ear canals Diabetic neuropathy Diffuse myofascial pain syndrome Esophageal dysphagia GERD (gastroesophageal reflux disease) Well controlled and stable History of IL (myocardial infarction) (2009) No stents or bypass Hx of deep venous thrombosis 3 YEARS AGO (REASON FOR ELIQUIS)- NO ISSUE SINCE Hx of thyroid cancer S/P THYROIDECTOMY AND ONE ROUND OF XRT Hx: recurrent pneumonia NO CURRENT ISSUES Hyperlipidemia Hypertension BP FLUCTUATES Hypothyroidism (acquired) Meralgia paresthetica of right side Follows with neuro Mixed hearing loss of right ear NO HEARING AIDS Obesity hypoventilation syndrome On home oxygen therapy 5L/MIN NC HS Personal history of pulmonary embolism (2014) REASON FOR ELIQUIS Personal history of skin cancer S/P REMOVAL ON RIGHT LEG Psoriatic arthritis No meds at this time- follows with rheum Type 2 diabetes mellitus WELL CONTROLLED AND STABLE Surgical History H/O cataract extraction LEFT/RT History of appendectomy History of back surgery X 5 INCLUDING FUSION History of breast biopsy LEFT (BENIGN) History of cardiac cath X 7 09/2012 NO STENTS History of cervical spinal surgery X 2 (GOOD ROM) History of colonoscopy History of esophagogastroduodenoscopy (EGD) History of knee replacement RT/LEFT History of placement of ear tubes BILAT. History of thyroidectomy, total SECONDARY TO MALIGNANCY S/P section x 2 S/P dilatation and curettage Family History Mother Diabetes Family history of diabetes mellitus Cardiac disorder Heart trouble Myocardial infarction Renal failure Family history of reaction to anesthesia Hypertension Stroke Gallbladder disease Grandfather Family hx of colon cancer Myocardial infarction Father Colon cancer Cardiac disorder Kidney stones Heart trouble Myocardial infarction Degenerative disc disease Lung disease Hypertension Stroke Aunt Colon cancer Diabetes Grandmother (Maternal) Degenerative disc disease Cancer Sister Diabetes Family history of diabetes mellitus Breast cancer Cancer Hypertension Gallbladder disease Family/Other Kidney disease Brother Multiple sclerosis Uncle Myocardial infarction Grandfather (Maternal) Family history of diabetes mellitus Aunt Diabetes Aunt Diabetes Aunt Diabetes Aunt Diabetes Aunt Diabetes Other Dementia Denies family history of Ovarian cancer Prostate cancer Adverse effect of anesthesia Bleeding disorder Social History Smoking Status: Current every day smoker Cigarettes Per Day: 1/2 pack a day; Second Hand Exposure: Yes; Do You Dip or Chew Tobacco: No; Hx Alcohol Use: No Hx Substance Use: No Preferred Language: Salvadorean Communication Ability: Effective Visual Impairment: No Limitations Hearing Ability: Hard of Hearing Ring Sorter Required: Yes Beliefs That Will Affect Care: None marital status: Current Living Situation: Spouse and Family current occupational status: unemployed How many Children do You have: 2 Other Information That Helps Us Care for You: No Feels Safe at Home: Yes Safety Concerns: Feels Safe At This Time Dental Care, Regularly: Yes Physical Activity Frequency: Does not Exercise Physical Activity Frequency Comment: LIMITED BY PHYSICAL CONDITION Seatbelt Use: always Assistive Devices: Cane Assistive Devices Comment: O2 5 L/MIN NC Physical Exam Physical Exam: Patient alert and oriented Heart regular rate and rhythm Lungs clear to auscultation Results & Data ([facility]) Vital Signs (Past 12 Hours) Vital Signs Temp Pulse Resp BP Pulse Ox 07/15/20 10:44 37.4 C 80 20 104/76 96
[2020-07-15] MEDS ORDERED: BUPIVACAINE/EPINEPHRINE 0.25% 1:200,000 30 ML VIAL ONE (12:24)
[2020-07-15] MEDS ORDERED: BACITRACIN INJ 50,000 UNIT VIAL ONE (12:24)
[2020-07-15] MEDS ORDERED: VANCOMYCIN HCL 1000MG/20ML VIAL ONE (12:31)
[2020-07-15] MEDS ORDERED: GENTAMICIN SULFATE 40 MG/ML 2 ML VIAL ONE (12:31)
[2020-07-15] MEDS ORDERED: SUGAMMADEX SODIUM 200 MG/2 ML VIAL IV ONE (13:33)
[2020-07-15] MEDS ORDERED: ACETAMINOPHEN 1000 MG/100 ML IV IV ONE (13:33)
[2020-07-15] MEDS ORDERED: FLOSEAL HEMOSTATIC MATRIX 10ML TOP ONE (13:38)
[2020-07-15] MEDS ORDERED: KETAMINE 50 MG/5 ML SYRINGE ONE (13:38)
[2020-07-15] MEDS ORDERED: DURASEAL DURAL SEALANT 5ML TOP ONE (13:49)
[2020-07-15] MEDS ORDERED: ROCURONIUM BROMIDE 10 MG/ML 5 ML VIAL IV ONE (14:16)
[2020-07-15] MEDS ORDERED: ONDANSETRON INJ 2 MG/ML 2 ML VIAL ONE ×2 (14:16)
[2020-07-15] MEDS ORDERED: GLYCOPYRROLATE 0.2 MG/ML VIAL ONE (14:16)
--- NOTE | 2020-07-15 15:00 | Operative Report ---
Post Operative Report Pre & Post Diagnosis Operation Date: 07/15/20 11:55 Pre-Op Diagnosis: Lumbar spinal stenosis with neurogenic claudication Morbid obesity Post-Op Diagnosis: Same I identified the patient and participated in the time-out.: Yes Procedure Operation Date: 07/15/20 11:55 Actual Procedures 1 revision decompression with bilateral medial facetectomies and foraminotomies L3-4, L4-5 and L5-S1. #2 posterior spinal fusion L4-5 L5-S1. #3 placement posterior instrumentation L4-5 L5-S1. #4 interbody fusion L4-5 per #5 placement peek cage 11 x 22 mm at L4-5. #6 placement of locally harvested morselized autograft in the posterior lateral gutters. #7 placement infuse collagen sponge, master graft in the posterior lateral gutters and ostial amp and interbody space. Surgeon Ata Hairston DO Dimensional Engineer Meg Saleem Estimated Blood Loss 200 Findings See Below Patient is 5 foot 5 inches tall weighing over 115 kg with a BMI in excess of 42. Patient's body habitus required her deepest retractors and longus instruments in order to perform her procedure. This did add significant technical difficulty resulting in a 50% increase in operative time. Specimens None Indications This is a 59-year-old female who presents with the above-mentioned diagnosis after failing course of nonoperative care is here for the above-mentioned procedure. Description of Procedure Patient was met with identified informed consent obtained. Patient was then taken to the operative suite underwent an patient placed in a prone position on the Huseyin table on top of the Joseph frame. All bony prominences well-padded eyes inspected to ensure no external pressure placed upon the. This point the lumbar spine was prepped and draped in normal sterile fashion. Sharp dissection with the assistance of Bovie cautery was then performed up to and exposing the r emaining lamina and transverse processes of L4-L5 and the sacral ala bilaterally. I then performed a revision complete laminectomy of L5 L4 partial laminectomy of L3 including bilateral medial facetectomies and foraminotomies addressing all stenosis. Also identified large disc herniation L4-5 on the right. This is removed in its entirety. Pedicle screws were then placed in L4- L5 and S1 levels bilaterally with assistance of fluoroscopy and the appropriately sized arline placed. By way of a transforaminal approach on the right complete discectomy of L4-5 was performed endplates curetted to sub cortical bleeding bone and a Union by 22 mm peek cage filled with osteobone graft tapped in position. The rods and locked into final position bilaterally. Transverse processes of L4-L5 and the sacral ala burred to subcortical bleeding bone. Infuse collagen sponge mass graft local autograft was placed in the posterior lateral gutters. 15 round KENN drain inserted. I also placed a small bit of DuraSeal over the thinned area of dura that was markedly scarred. I also placed 5 cc of antibiotic beads throughout the incision. Incision was then closed with 1 Vicryl the fascia 2-0 Vicryl subcutaneously and 4 Monocryl for final skin closure. Steri-Strip sterile dressings placed. Patient waken taken to PACU stable condition. Please note spinal cord monitoring was utilized at the procedure no changes noted. Lastly Meg Saleem was present at the entire surgery involved the patient positioning complex portions of the surgery and final skin closure. I attest to the content of the Intraoperative Record and any orders documented therein. Any exceptions are noted below.
--- NOTE | 2020-07-15 15:13 | Fluoroscopy Report ---
FL lumbar spine 2-3V HISTORY: 59 years-old Female L4-S1 DECOMPRESSION/FUSION/INTERBODY/POSSIBLE L1-L3 COMPARISON: MRI lumbar spine 10/05/2019 TECHNIQUE: 2 spot fluoroscopic images of the lumbar spine were obtained utilizing 24.5 seconds fluoro scopy time FINDINGS: Posterior interbody arline and screw fusion hardware noted at L4-S1 with discectomy changes at L4-L5. Porter rdware appears intact. No unexpected radiopaque foreign bodies. IMPRESSION: Fluoroscopic assistance as above. Please see operative report for further details. ACT 112: Negative or not required by law. The above report was generated using voice recognition software. It may contain grammatical, syntax o r spelling errors. Electronically signed by: Fabio Torrez M.D. 07/15/2020 3:12 PM
[2020-07-15] MEDS: fentaNYL citrate 100 MCG/2 ML VIAL IV PRN ×4 (15:26→15:45)
[2020-07-15] MEDS ORDERED: LABETALOL HCL IV 5 MG/ML 20ML IV ONE (15:28)
[2020-07-15] MEDS ORDERED: HYDROmorphone INJ 2 MG/ML SYR/VIAL ONE (15:51)
[2020-07-15] MEDS: HYDROmorphone INJ 0.5 MG/0.5 ML SYR IV PRN ×4 (15:54→16:55)
--- NOTE | 2020-07-15 16:20 | Anesthesiology Progress Note ---
Date of Service July 15, 2020 Anesthesia Post Procedure Vital Signs Vital Signs: Temp Pulse Pulse Resp BP Pulse Ox 07/15/20 16:15 63 12 124/74 100 07/15/20 16:05 66 16 120/76 100 07/15/20 15:55 66 20 124/84 99 07/15/20 15:45 66 15 121/76 100 07/15/20 15:35 65 12 132/70 100 07/15/20 15:25 63 15 135/76 100 07/15/20 15:16 36.2 C L 65 15 132/80 98 07/15/20 10:44 37.4 C 80 20 104/76 96 Pain Intensity Back: Pain Intensity: 2 Transfer of Care Handoff Completed per policy Notes Mental Status: alert / awake / arousable Patient Amnestic to Procedure: Yes Nausea / Vomiting: adequately controlled Pain: adequately controlled Airway Patency, RR, SpO2: stable & adequate BP & HR: stable & adequate Hydration State: stable & adequate Anesthetic Complications: no major complications apparent and Pt Satisfied with anesthetic care Notes: The patient is awake and comfortable. Her vital signs are stable. Due to her history of nocturnal hypoxemia she will have continuous pulse oximetry on the floor.
[2020-07-15] MEDS ORDERED: LORazepam 2 MG/4 ML VIAL ONE (18:02)
[2020-07-15] MEDS ORDERED: diphenhydrAMINE Capsule 25 MG CAP PO PRN (18:48)
[2020-07-15] MEDS ORDERED: ALBUTEROL HFA 8 GM INHALER INH PRN (18:48)
[2020-07-15] MEDS ORDERED: bisacodyL 10 MG SUPP PR PRN (18:48)
[2020-07-15] MEDS ORDERED: SODIUM CHLORIDE 0.9% 1000ML 1,000 ML IV SCH (18:48)
[2020-07-15] MEDS ORDERED: NON-FORMULARY MEDICATION (Clobetasol 1 APPLN) TOP PRN (18:48)
[2020-07-15] MEDS ORDERED: PROMETHAZINE HCL 25 MG TAB PO PRN (18:48)
[2020-07-15] MEDS ORDERED: MONTELUKAST SODIUM 10 MG TABLET PO PRN (18:48)
[2020-07-15] MEDS ORDERED: LORazepam 0.5 MG/1 ML VIAL IV PRN (18:48)
[2020-07-15] MEDS ORDERED: METOCLOPRAMIDE HCL INJ 5 MG/ML 2 ML VIAL IV PRN (18:48)
[2020-07-15] MEDS ORDERED: SOD PHOSPHATE/SOD BIPHOSPHATE ENEMA 132 ML BTL PR PRN (18:48)
[2020-07-15] MEDS ORDERED: hydrOXYzine HCl 25 MG TAB PO PRN ×2 (18:48)
[2020-07-15] MEDS ORDERED: traMADol HCL 50 MG TABLET PO PRN (18:48)
[2020-07-15] MEDS ORDERED: DO NOT ADMINISTER PNEUMOCOCCAL VACCINE PRN (18:48)
[2020-07-15] MEDS ORDERED: MAGNESIUM HYDROXIDE SUSP 30 ML UDC PO PRN (18:48)
[2020-07-15] MEDS ORDERED: HYDROmorphone INJ 1 MG/ML SYRINGE IV PRN (18:48)
[2020-07-15] MEDS ORDERED: DO NOT ADMINISTER FLU VACCINE PRN (18:48)
[2020-07-15] MEDS ORDERED: ACETAMINOPHEN 1,000 MG/100 ML VIAL IV PRN (18:48)
[2020-07-15] MEDS ORDERED: ALUMINUM/MAGNESIUM SUSP 30 ML UDC PO PRN (18:48)
[2020-07-15] MEDS ORDERED: NALOXONE HCL 0.4 MG/1 ML VIAL/CARP IV PRN (18:48)
[2020-07-15] MEDS ORDERED: FAMOTIDINE 20 MG TAB PO PRN (18:48)
[2020-07-15] MEDS ORDERED: HYDROmorphone INJ 0.5 MG/0.5 ML SYR IV PRN (18:48)
[2020-07-15] MEDS ORDERED: NITROGLYCERIN SL 0.4 MG/TAB TAB SL PRN (18:48)
[2020-07-15] MEDS ORDERED: PROMETHAZINE HCL 12.5 MG in SODIUM CHLORIDE 0.9% 50 ML IV PRN (18:48)
[2020-07-15] MEDS: ALBUTEROL 0.083% NEBU SOLN 3 ML VIAL INH PRN (19:20)
[2020-07-15] MEDS ORDERED: PHARMACY GLYCEMIC MGMT CONSULT PRN (20:22)
[2020-07-15] MEDS ORDERED: INSULIN GLARGINE SOLOSTAR 100 UNITS/ML 3 ML PEN SC ONE (20:30)
[2020-07-15] MEDS ORDERED: CARBOHYDRATES FOR HYPOGLYCEMIA PO PRN (20:30)
[2020-07-15] MEDS ORDERED: GLUCOSE 40% GEL 15 GM TUBE PO PRN (20:30)
[2020-07-15] MEDS ORDERED: GLUCAGON FOR INJ 1 MG VIAL IM PRN (20:30)
[2020-07-15] MEDS ORDERED: DEXTROSE 50% 50 ML SYRINGE IV PRN (20:30)
[2020-07-15] MEDS ORDERED: GLUCOSE 10 TABS/TUBE PO PRN (20:30)
[2020-07-15] MEDS: oxyCODONE HCL IR 5 MG TAB (IMMEDIATE RELEASE) PO PRN (20:40)
[2020-07-15] MEDS: CLINDAMYCIN 600 MG in DEXTROSE 5% 50 ML IV SCH (20:52)
[2020-07-15] MEDS: DOCUSATE SODIUM/SENNA 50/8.6MG TAB PO SCH (21:07)
[2020-07-15] MEDS: SUCRALFATE 1 GM TAB PO SCH (21:07)
[2020-07-15] MEDS: busPIRone 5 MG TAB PO SCH (21:08)
[2020-07-15] MEDS: CETIRIZINE HCL 10 MG TABLET PO SCH (21:08)
[2020-07-15] MEDS: PRAVASTATIN SOD 20 MG TAB PO SCH (21:08)
[2020-07-15] MEDS: MAGNESIUM OXIDE 400 MG TAB PO SCH (21:08)
[2020-07-15] MEDS: METOPROLOL SUCC 25MG EXT REL TAB PO SCH (21:08)
[2020-07-15] MEDS: traZODone HCL 100 MG TAB PO SCH (21:08)
[2020-07-15] MEDS: DULoxetine HCL 60 MG CAP PO SCH (21:08)
[2020-07-15] MEDS: PANTOprazole 40 MG TAB PO SCH (21:08)
[2020-07-15] MEDS: GABAPENTIN 800 MG TAB PO SCH (22:10)
[2020-07-15] MEDS: INSULIN ASPART 100 UNITS/ML 3 ML PEN SC SCH (22:13)
[2020-07-15] MEDS: LORazepam 0.5 MG TAB PO PRN (23:53)
[2020-07-16] MEDS: oxyCODONE HCL IR 5 MG TAB (IMMEDIATE RELEASE) PO PRN ×5 (01:54→23:35)
[2020-07-16] MEDS ORDERED: INSULIN ASPART 100 UNITS/ML 3 ML PEN SC ONE (02:00)
[2020-07-16] MEDS: CLINDAMYCIN 600 MG in DEXTROSE 5% 50 ML IV SCH (04:46)
[2020-07-16 06:23] LABS: Basophils # (auto) 0.01 K/uL (0-0.2); Basophils % (auto) 0.1 %; Eosinophils # (auto) 0.14 K/uL (0-0.5); Eosinophils % (auto) 1.3 %; Hematocrit (blood only) 33.5 % (37-47); Hemoglobin 10.3 g/dL (12.0-16.0); Immature Granulocytes # (auto) 0.04 K/uL (0.00-0.02); Immature Granulocytes % (auto) 0.4 %; Lymphocytes # (auto) 1.87 K/uL (1.2-3.4); Mean Corpuscular Hemoglobin 28.1 pg (25-34); Mean Corpuscular Hgb Conc 30.7 g/dL (32-36); Mean Corpuscular Volume 91.5 fL (80-100); Mean Platelet Volume 9.9 fL (7.4-10.4); Monocytes # (auto) 0.95 K/uL (0.11-0.59); Monocytes % (auto) 9.2 %; Neutrophils # (auto) 7.37 K/uL (1.4-6.5); Platelet Count 259 K/uL (130-400); RDW Coefficient of Variation 14.3 % (11.5-14.5); RDW Standard Deviation 48.4 fL (36.4-46.3); Red Blood Count 3.66 M/uL (4.2-5.4); White Blood Count 10.38 K/uL (4.8-10.8)
[2020-07-16] MEDS: LEVOTHYROXINE SODIUM 200 MCG TABLET PO SCH (06:26)
[2020-07-16] MEDS: POLYETHYLENE (MIRALAX) 17 GM PACK PO SCH ×4 (06:28→23:36)
[2020-07-16] MEDS: ALBUTEROL 0.083% NEBU SOLN 3 ML VIAL INH PRN (06:30)
[2020-07-16 06:49] LABS: BUN Creatinine Ratio 14.5 (10-20); Calcium 7.9 mg/dl (8.5-10.1); Creatinine Clr Calc Pharmacy 117.4 ml/min; Est GFR (African American) 111.6; Est GFR (Non-African American) 96.3
[2020-07-16 06:54] LABS: Estimated Average Glucose 114 mg/dl; Hemoglobin A1C 5.6 % (4.5-5.6)
[2020-07-16] MEDS: SUCRALFATE 1 GM TAB PO SCH ×4 (08:04→20:05)
--- NOTE | 2020-07-16 08:34 | Orthopedic Progress Note ---
Date of Service July 16, 2020 Assessment & Plan (1) Neurogenic claudication due to lumbar spinal stenosis: Admission and Anticipated Discharge Date Admission Date: July 15, 2020 This time initiate physical therapy occupational therapy consider discharge home the next few days versus rehab. Subjective Back pain controlled leg symptoms markedly improved. She denies any headaches nausea or vomiting. Physical Exam Physical Exam: Patient is good strength testing appears comfortable. Results & Data ([facility]) Vital Signs (Past 12 Hours) Vital Signs Temp Pulse Pulse Resp BP Pulse Ox 07/16/20 07:27 36.7 C 70 16 109/66 96 07/16/20 06:30 66 16 98 07/16/20 03:07 36.6 C 69 16 130/76 99 07/15/20 23:42 36.4 C L 64 18 143/75 H 100 07/15/20 21:56 36.4 C L 71 20 133/75 98 07/15/20 21:04 69 18 100 07/15/20 20:49 36.6 C 63 18 124/67 96
[2020-07-16] MEDS: LORazepam 0.5 MG TAB PO PRN (08:56)
[2020-07-16] MEDS: GABAPENTIN 800 MG TAB PO SCH ×3 (08:58→20:06)
[2020-07-16] MEDS: busPIRone 5 MG TAB PO SCH ×2 (08:59→20:05)
[2020-07-16] MEDS: PANTOprazole 40 MG TAB PO SCH ×2 (08:59→20:05)
[2020-07-16] MEDS ORDERED: FLUTICASONE FUROATE 100MCG 14 PUFFS/INHALER INH SCH (09:00)
[2020-07-16] MEDS: FOLIC ACID 1 MG TAB PO SCH (09:00)
[2020-07-16] MEDS: MAGNESIUM OXIDE 400 MG TAB PO SCH ×3 (09:00→20:06)
[2020-07-16] MEDS ORDERED: UMECLIDINIUM/VILANTEROL 62.5/25MCG 7 PUFFS/INHALER INH SCH (09:00)
[2020-07-16] MEDS: DULoxetine HCL 60 MG CAP PO SCH ×2 (09:01→20:06)
[2020-07-16] MEDS: CHOLECALCIFEROL 1,000 UNITS 25 MCG TAB PO SCH (09:02)
[2020-07-16] MEDS: FERROUS SULFATE 325 MG TAB PO SCH ×2 (09:03→16:01)
[2020-07-16] MEDS: CYANOCOBALAMIN 500 MCG TABLET (VITAMIN B-12) PO SCH (09:03)
[2020-07-16] MEDS: METOPROLOL SUCC 25MG EXT REL TAB PO SCH ×2 (09:05→20:05)
[2020-07-16] MEDS: INSULIN ASPART 100 UNITS/ML 3 ML PEN SC SCH ×4 (09:07→21:47)
--- NOTE | 2020-07-16 10:21 | Pharmacy Report ---
Glycemic Control Consultation - Date of Service July 16, 2020 - Scope Scope: Glycemic Pharmacist consulted for glycemic control and to write orders per [facility] inpatient glycemic control protocol. - Objective Weight: 115.9 kg Accuchecks BSG (last 24hrs): 07/15/20 07/15/20 07/15/20 10:32 15:19 18:20 Glucose POC Glucose 153 H 196 H 220 H 07/15/20 07/16/20 07/16/20 21:05 01:47 05:32 Glucose 105 H POC Glucose 144 H 129 H 07/16/20 08:08 Glucose POC Glucose 105 H Laboratory Data (last 24hrs): 07/16/20 05:32 Potassium 4.0 Carbon Dioxide 30 Anion Gap 5.0 Creatinine 0.64 Est Cr Clr Drug Dosing 117.4 HbA1c: Hemoglobin A1c 5.6 % (4.5-5.6) 07/16/20 05:32 - Recent Pertinent Medications Outpatient Anti-diabetic Regimen: * Metformin 1000 mg PO BIDM * A1c = 5.6% (07/16/2020) The patient is currently receiving: * Basal insulin: Lantus 20 units x 1 * Correctional Insulin: Novolog Correction per scale ACHS Goal Range: Low 110 mg/dL - High 140 mg/dL Correction Factor: 20 mg/dL/unit * Prandial insulin: Per carb ratio of 1 unit per 7 grams CHO consumed Risk Factors for Insulin Resistance: * Recent Surgery: * POD #1 s/p L4-S1 Decompression Fusion * Diet: * T2DM - Assessment & Plan Assessment & Plan: ASSESSMENT: * 59 yo F admitted s/p L4-S1 Decompression Fusion done yesterday. Pharmacy is consulted for inpatient glycemic management. * Postoperative BSGs were 196-220-144 mg/dL * Patient received 20 units of Lantus x 1 last evening * Patient received 1 unit of bolus insulin last night * Fasting BSG this AM was 105 mg/dL - well controlled * Will not use any further basal insulin on this patient * Will order home dose of metformin * Lunchtime BSG was 111 mg/dL - well controlled PLAN FOR INPATIENT GLYCEMIC CONTROL: * Metformin 1000 mg PO BIDM * Basal insulin * Lantus 20 units SQ x 1 last evening * No further basal will be ordered * Bolus insulin * NovoLog per scale ACHS or Q6hrs while NPO * Goal Range: Low 110 mg/dL - High 140 mg/dL * Correction Factor: 20 mg/dL/unit * Nutritional / Prandial insulin per carb ratio of 1 unit per 7 grams CHO consumed * Please note that the plan above was derived based on current level of insulin resistance and hospital stress. These recommendations are appropriate for inpatient admission only. Plan of care upon discharge will need to be reassessed to avoid potential outpatient hypo/hyperglycemia. Thank you.
[2020-07-16] MEDS: FLUTICASONE/UMECLIDIN/VILANTER INH SCH (11:14)
[2020-07-16] MEDS: ACETAMINOPHEN 500 MG TAB PO PRN (13:25)
[2020-07-16] MEDS: METHOCARBAMOL 500 MG TABLET PO PRN (15:05)
[2020-07-16] MEDS: metFORMIN HCL 500 MG TAB PO SCH (16:00)
[2020-07-16] MEDS: DOCUSATE SODIUM/SENNA 50/8.6MG TAB PO SCH (20:05)
[2020-07-16] MEDS: traZODone HCL 100 MG TAB PO SCH (20:05)
[2020-07-16] MEDS: CETIRIZINE HCL 10 MG TABLET PO SCH (20:06)
[2020-07-16] MEDS: PRAVASTATIN SOD 20 MG TAB PO SCH (20:06)
--- NOTE | 2020-07-16 20:20 | Hospitalist Consultation ---
Date of Consultation July 16, 2020 Assessment & Plan (1) Neurogenic claudication due to lumbar spinal stenosis: POD #1 from laminectomy with fusion from L4-S1 with Dr. Hairston Patient currently generally controlled with pain but does request Tylenol and lower doses of narcotics Tylenol is ordered 1 g p.o. every 8 hours as needed Further pain management per Dr. Hairston's team (2) COPD (chronic obstructive pulmonary disease): Patient currently is on Trelegy (ICS/AC/LABA) as an outpatient Was started on Anoro Ellipta (AC/LABA) We will add Arnuity Ellipta (ICS) Continue albuterol duo nebs and HFA inhaler as needed. No bronchospasm on exam so patient does not require scheduled nebulizer treatments Patient is encouraged to follow-up with the outpatient office (3) Type 2 diabetes mellitus: Well-controlled with a hemoglobin A1c of 5.6 07/16/2020 Metformin as an outpatient We will continue this while inpatient NovoLog sliding scale is also in place with BSG's ACHS Continue diabetic diet (4) Diabetic neuropathy: Continue gabapentin 800 mg p.o. twice daily and 1200 mg p.o. HS (5) Esophageal dysphagia: Aspiration precautions Continue good control of GERD Continue famotidine 20 mg p.o. every 12 hours as needed Patient is on pantoprazole 40 mg p.o. twice daily (6) AF (paroxysmal atrial fibrillation): Chronically anticoagulated with Eliquis Restart tomorrow if okay with Dr. Hairston Currently rate controlled in the 70s Continue metoprolol succinate 25 mg p.o. twice daily Follow clinically (7) Depression: Continue Cymbalta and buspirone (8) Anxiety: Patient chronically on lorazepam as needed We will continue this while inpatient (9) Obesity hypoventilation syndrome: Patient currently is not receiving any noninvasive ventilation at home Advised her that she should follow-up with sleep medicine for polysomnography exam No indication for ABGs as serum CO2 is at 30 mmol/L and does not suggest hypercapnia Should patient exhibit confusion, we will check an arterial blood gas as patient could have [employer]POR[employer] depression from increased analgesia postsurgically Continue to encourage outpatient follow-up with sleep medicine Patient was offered BiPAP while inpatient and refused (10) Hypothyroidism (acquired): Secondary to thyroid cancer and thyroidectomy Continue levothyroxine 200 mcg daily Patient is not on any other thyroid replacement Outpatient management (11) GERD (gastroesophageal reflux disease): Continue famotidine as needed and pantoprazole twice daily scheduled (12) DVT prophylaxis: Chemical prophylaxis per orthopedic spine team Ambulate as tolerated Thank you very much for including us in the care of this patient. We will follow along with you. Please refer to Dr. Harris's addendum for further recommendations. History of Present Illness Attending Physician: Ata Hairston DO History of Present Illness Attending: Dr. 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 She presented yesterday for elective revision decompression of L3-S1 with fusion and placement of a peek cage and graft. Surgery was performed by Dr. Hairston and patient tolerated well. Estimated blood loss was 200 mL. Patient remained hemodynamically stable. She has pain today but no neurological deficit and is able to reposition. She has a complicated past medical history including paroxysmal atrial fibrillation on chronic anticoagulation with Eliquis, chronic anemia, anxiety, left carotid artery stenosis, COPD, tobacco abuse with every day cigarette use, degenerative joint disease of the shoulder, osteoarthritis, diabetes mellitus type 2, diabetic neuropathy, GERD, history of MN in 2009 with no history of sten ts or bypass surgery, history of DVT, history of thyroid cancer with thyroidectomy, history of pneumonia, hypothyroidism, mixed hearing loss, obesity hypoventilation syndrome, chronic respiratory failure with hypoxia requiring supplemental oxygen of 5 L/min via nasal cannula , basal cell carcinoma of the right lower extremity, psoriasis of the external ear canal and scalp, morbid obesity with a BMI of 42.5 kg/m. She reports compliance with all of her medications. She does not have a CPAP, BiPAP or other noninvasive ventilator at home. She does take Trelegy (ICS/AC/LABA) as well as DuoNebs for COPD. She has not had recent PFTs. She has chronic pain and follows with the pain management team. Denies any history of lung cancer or colon cancer. She has no recent illness. She denies exposure to anyone with Covid symptoms. She has chronic cough with occasional sputum production but no acute changes. She has no hemoptysis. She has no nausea or vomiting. She has no other acute complaints other than back pain. Tobacco abuse history with current 1/2 pack/day history. Denies ethanol use Denies other substance abuse Allergies Allergy/AdvReac Type Severity Reaction Status Date / Time bee pollen Allergy Severe Anaphylaxis Verified 07/15/20 10:33 buprenorphine [From Suboxone] Allergy Severe VOMITTING, Verified 07/15/20 10:33 SKIN PROBLEMS fentanyl Allergy Severe SEVERE Verified 07/15/20 10:33 SEDATION, RESP DEPRESSION Penicillins Allergy Severe ANAPHYLAXIS Verified 07/15/20 10:33 pregabalin Allergy Severe SHORTNESS Verified 07/15/20 10:33 OF BREATH adhesive Allergy Intermediate Blister-WITH Verified 07/15/20 10:33 SOME PLASTIC TAPE cephalexin Allergy Intermediate Nausea Verified 07/15/20 10:33 levofloxacin [From Levaquin] Allergy Intermediate CAUSES IBS Verified 07/15/20 10:33 ondansetron [From Zofran] Allergy Intermediate Migraine Verified 07/15/20 10:33 fluticasone Allergy Mild SEVERE Verified 07/15/20 10:33 THRUSH salmeterol Allergy Mild SEVERE Verified 07/15/20 10:33 THRUSH Bactrim Allergy Unknown SEVERE Verified 01/30/18 09:22 NAUSEA naloxone [From Suboxone] Allergy Unknown SEVERE Verified 07/15/20 10:33 NAUSEA sulfamethoxazole Allergy Unknown SEVERE Verified 07/15/20 10:33 NAUSEA trimethoprim Allergy Unknown SEVERE Verified 07/15/20 10:33 NAUSEA oxcarbazepine AdvReac Severe Severe Verified 07/15/20 10:33 [From Trileptal] stomach issues saccharin [From Sweeta] AdvReac Intermediate SEVERE Verified 07/15/20 10:33 VOMITING ketorolac AdvReac Mild headache Verified 07/15/20 10:33 Home Medications Home Medications Medication Instructions Recorded Confirmed Type Oxygen Home #1 ea 03/20/19 06/26/20 Rx apixaban 5 mg tablet 5 mg PO BID #60 tab 03/20/19 07/15/20 Rx blood sugar diagnostic #100 ea 03/20/19 06/26/20 Rx lancets 30 gauge #200 ea 03/20/19 06/26/20 Rx nitroglycerin 0.4 mg sublingual 0.4 mg SUBLINGUAL UD PRN #30 tab 03/20/19 07/15/20 Rx tablet miscellaneous medical supply #1 ea 05/14/19 06/26/20 Rx albuterol sulfate 2.5 mg/0.5 mL 2.5 mg INHALATION QID PRN #30 ea 09/13/19 07/15/20 Rx solution for nebulization albuterol sulfate 90 mcg/actuation 2 puff INHALATION Q6H PRN #18 gm 09/13/19 07/15/20 Rx aerosol inhaler clobetasol 0.05 % lotion 1 appln TOP BID PRN 14 Days #59 ml 10/16/19 07/15/20 Rx miscellaneous medical supply #1 ea 11/14/19 06/26/20 Rx esomeprazole magnesium 40 mg 40 mg PO BID #180 cap 01/29/20 07/15/20 Rx capsule,delayed release montelukast 10 mg tablet 10 mg PO DAILY PRN #30 tab 02/20/20 07/15/20 Rx pravastatin 20 mg tablet 20 mg PO HS #90 tab 05/01/20 07/15/20 Rx metoprolol succinate 25 mg 25 mg PO BID #60 tab 05/12/20 06/26/20 Rx tablet,extended release 24 hr hydroxyzine pamoate 25 mg capsule 25 mg PO TID PRN #60 cap 05/16/20 07/15/20 Rx duloxetine 60 mg capsule,delayed 60 mg PO BID 30 Days #60 cap 05/30/20 07/15/20 Rx release magnesium oxide 400 mg PO TID #90 tab 05/30/20 06/26/20 Rx sucralfate 1 gram tablet 1 g PO QID 14 Days #56 tab 06/04/20 07/15/20 Rx promethazine 12.5 mg tablet 12.5 mg PO Q12H PRN #30 tab 06/05/20 07/15/20 Rx Trelegy Ellipta 1 puffs INH QAM 06/12/20 07/15/20 History cholecalciferol (vitamin D3) 1,000 units PO QAM 06/12/20 07/15/20 History fluocinolone acetonide oil 5 drops OT BID PRN 06/12/20 06/26/20 History [DermOtic Oil] levothyroxine 200 mcg PO QAM 06/12/20 07/15/20 History mupirocin 1 appln TOP TID PRN 06/12/20 07/15/20 History nystatin 1 appln TOP TID PRN 06/12/20 07/15/20 History buspirone 10 mg tablet 10 mg PO BID #180 tab 06/13/20 07/15/20 Rx gabapentin 800 mg tablet 800 mg PO .COMPLEX #105 tab 06/16/20 07/15/20 Rx levocetirizine 5 mg tablet 5 mg PO HS #90 tab 06/16/20 07/15/20 Rx metformin 1,000 mg tablet 1,000 mg PO BID #180 tab 06/30/20 07/15/20 Rx trazodone 100 mg tablet 300 mg PO HS #90 tab 07/03/20 07/15/20 Rx methocarbamol 500 mg tablet 1,000 mg PO QID PRN #240 tab 07/04/20 07/15/20 Rx nystatin 100,000 unit/gram topical 1 applic TOPICAL BID #30 g 07/04/20 07/15/20 Rx powder cyanocobalamin (vitamin B-12) 500 1,000 mcg PO QAM #60 tab 07/09/20 07/15/20 Rx mcg tablet ferrous sulfate 325 mg (65 mg 325 mg PO BID #60 tab 07/09/20 07/15/20 Rx iron) tablet folic acid 1 mg tablet 1 mg PO QAM #30 tab 07/09/20 07/15/20 Rx hydrocodone 5 mg-acetaminophen 325 1 tab PO Q8H PRN #30 tab 07/09/20 07/15/20 Rx mg tablet enoxaparin [Lovenox] mg SUBCUT 07/15/20 History Patient History Medical History AF (paroxysmal atrial fibrillation) Takes Eliquis Allergic rhinitis Anemia Anxiety Carotid artery narrowing FOLLOWED BY DR. PEÑA- PER 2017 CTA OF NECK- LEFT ICA 56% STENOSIS, NO HEMODYNAMICALLY SIG STENOSSI TO RIGHT ICA Cervicalgia Chronic anticoagulation " CLOTTING PROBLEM' x 5 YRS F/U DR PATTERSON Chronic interstitial cystitis COPD (chronic obstructive pulmonary disease) Breathing stable and controlled Coronary artery disease No hx stents or angioplasty. Minor nonobstructive CAD per September 2012 cath per cardio note Degenerative joint disease of shoulder BILATERAL Depression Dermatitis of both ear canals Diabetic neuropathy Diffuse myofascial pain syndrome Esophageal dysphagia GERD (gastroesophageal reflux disease) Well controlled and stable History of MN (myocardial infarction) (2009) No stents or bypass Hx of deep venous thrombosis 3 YEARS AGO (REASON FOR ELIQUIS)- NO ISSUE SINCE Hx of thyroid cancer S/P THYROIDECTOMY AND ONE ROUND OF XRT Hx: recurrent pneumonia NO CURRENT ISSUES Hyperlipidemia Hypertension BP FLUCTUATES Hypothyroidism (acquired) Meralgia paresthetica of right side Follows with neuro Mixed hearing loss of right ear NO HEARING AIDS Obesity hypoventilation syndrome On home oxygen therapy 5L/MIN NC HS Personal history of pulmonary embolism (2014) REASON FOR ELIQUIS Personal history of skin cancer S/P REMOVAL ON RIGHT LEG Psoriatic arthritis No meds at this time- follows with rheum Type 2 diabetes mellitus WELL CONTROLLED AND STABLE Surgical History H/O cataract extraction LEFT/RT History of appendectomy History of back surgery X 5 INCLUDING FUSION History of breast biopsy LEFT (BENIGN) History of cardiac cath X 7 09/2012 NO STENTS History of cervical spinal surgery X 2 (GOOD ROM) History of colonoscopy History of esophagogastroduodenoscopy (EGD) History of knee replacement RT/LEFT History of placement of ear tubes BILAT. History of thyroidectomy, total SECONDARY TO MALIGNANCY S/P section x 2 S/P dilatation and curettage Family History Mother Diabetes Family history of diabetes mellitus Cardiac disorder Heart trouble Myocardial infarction Renal failure Family history of reaction to anesthesia Hypertension Stroke Gallbladder disease Grandfather Family hx of colon cancer Myocardial infarction Father Colon cancer Cardiac disorder Kidney stones Heart trouble Myocardial infarction Degenerative disc disease Lung disease Hypertension Stroke Aunt Colon cancer Diabetes Grandmother (Maternal) Degenerative disc disease Cancer Sister Diabetes Family history of diabetes mellitus Breast cancer Cancer Hypertension Gallbladder disease Family/Other Kidney disease Brother Multiple sclerosis Uncle Myocardial infarction Grandfather (Maternal) Family history of diabetes mellitus Aunt Diabetes Aunt Diabetes Aunt Diabetes Aunt Diabetes Aunt Diabetes Other Dementia Denies family history of Ovarian cancer Prostate cancer Adverse effect of anesthesia Bleeding disorder Social History Smoking Status: Current every day smoker Cigarettes Per Day: 1/2 pack a day; Second Hand Exposure: Yes; Do You Dip or Chew Tobacco: No; Hx Alcohol Use: No Hx Substance Use: No Preferred Language: Serbian Communication Ability: Effective Visual Impairment: No Limitations Hearing Ability: Hard of Hearing Tax Assistant Required: Yes Beliefs That Will Affect Care: None marital status: Current Living Situation: Spouse and Family current occupational status: unemployed How many Children do You have: 2 Other Information That Helps Us Care for You: No Feels Safe at Home: Yes Safety Concerns: Feels Safe At This Time Dental Care, Regularly: Yes Physical Activity Frequency: Does not Exercise Physical Activity Frequency Comment: LIMITED BY PHYSICAL CONDITION Seatbelt Use: always Assistive Devices: Denture - Upper, Denture - Lower, Glasses and Walker Assistive Devices Comment: O2 5 L/MIN NC Review of Systems Review of Systems: All systems reviewed & are unremarkable except as noted in HPI & below Physical Exam Physical Exam: GENERAL : No acute distress. Pleasant. Talkative. No conversational dyspnea EYES: No icterus, gaze conjugate. Pupils equal round and reactive to light NOSE: No evidence of epistaxis. Nasal cannula in place MOUTH: No lesions or candidiasis. Tongue midline. No facial droop NECK: Supple. No carotid bruits. No stridor LUNGS: Inspiratory bronchospasm on the left upper lung. Otherwise, no adventitious breath sounds HEART: Regular, rate controlled ABDOMEN: Soft, NT, ND, BS Present EXTREMITIES: No LE edema, pedal pulses intact and equal bilaterally. JOHN hose are in place. NEURO: A&OX3 Results & Data Results & Data ([facility]) Vital Signs (Past 12 Hours) Vital Signs Temp Pulse Resp BP Pulse Ox 07/16/20 15:27 37 C 74 18 135/73 96 07/16/20 12:03 36.7 C 72 16 137/77 94 07/16/20 09:04 70 115/70 Laboratory Results 07/16/20 05:32 07/16/20 05:32 Diagnostic Findings FL lumbar spine 2-3V HISTORY: 59 years-old Female L4-S1 DECOMPRESSION/FUSION/INTERBODY/POSSIBLE L1- L3 COMPARISON: MRI lumbar spine 10/05/2019 TECHNIQUE: 2 spot fluoroscopic images of the lumbar spine were obtained utilizing 24.5 seconds fluoroscopy time FINDINGS: Posterior interbody arline and screw fusion hardware noted at L4-S1 with discectomy changes at L4-L5. Hardware appears intact. No unexpected radiopaque foreign bodies. IMPRESSION: Fluoroscopic assistance as above. Please see operative report for further details. Electronically signed by: Fabio Torrez M.D. 07/15/2020 3:12 PM PG Care Time/CCT Total # of Minutes Spent Total Time Spent with Patient: Total time spent is greater than 50% in coordination of care (as documented) at patient's floor/unit and/or counseling patient: 60 minutes including discussion with patient and chart review as well as discussion with Dr. Hairston Coding Level of Care Code 64943 Inpt Consult Level 5 History Detailed Exam Detailed Medical Decision Making High Complexity Diagnoses Neurogenic claudication due to lumbar spinal stenosis M48.062 COPD (chronic obstructive pulmonary disease) J44.9 Type 2 diabetes mellitus E11.9 Diabetic neuropathy E11.40 Esophageal dysphagia R13.10 AF (paroxysmal atrial fibrillation) I48.0 Depression F32.9 Anxiety F41.9 Obesity hypoventilation syndrome E66.2 Hypothyroidism (acquired) E03.9 GERD (gastroesophageal reflux disease) K21.9 DVT prophylaxis Z29.9 Time Spent (min) 60
[2020-07-17] MEDS: LEVOTHYROXINE SODIUM 200 MCG TABLET PO SCH (06:03)
[2020-07-17] MEDS: oxyCODONE HCL IR 5 MG TAB (IMMEDIATE RELEASE) PO PRN ×4 (06:04→20:19)
--- NOTE | 2020-07-17 08:26 | Orthopedic Progress Note ---
Date of Service July 17, 2020 Assessment & Plan (1) Neurogenic claudication due to lumbar spinal stenosis: Admission and Anticipated Discharge Date Admission Date: July 15, 2020 We will continue physical therapy today advance her bowel regiment change her dressing DC drain today and plan for discharge home tomorrow. Subjective Back pain controlled leg symptoms markedly improved. Physical Exam Physical Exam: Patient is in the chair at the bedside. She is good strength testing. Appears comfortable. Results & Data ([facility]) Vital Signs (Past 12 Hours) Vital Signs Temp Pulse Resp BP BP Pulse Ox 07/17/20 07:21 36.6 C 80 16 110/64 96 07/16/20 23:18 37.1 C 87 18 83/55 L 126/72 96
[2020-07-17] MEDS: ACETAMINOPHEN 500 MG TAB PO PRN (09:09)
[2020-07-17] MEDS: POLYETHYLENE (MIRALAX) 17 GM PACK PO SCH ×2 (09:09→12:00)
[2020-07-17] MEDS: CYANOCOBALAMIN 500 MCG TABLET (VITAMIN B-12) PO SCH (09:10)
[2020-07-17] MEDS: PANTOprazole 40 MG TAB PO SCH ×2 (09:10→20:22)
[2020-07-17] MEDS: GABAPENTIN 800 MG TAB PO SCH ×3 (09:10→20:22)
[2020-07-17] MEDS: FOLIC ACID 1 MG TAB PO SCH (09:11)
[2020-07-17] MEDS: MAGNESIUM OXIDE 400 MG TAB PO SCH ×3 (09:11→20:22)
[2020-07-17] MEDS: CHOLECALCIFEROL 1,000 UNITS 25 MCG TAB PO SCH (09:11)
[2020-07-17] MEDS: DULoxetine HCL 60 MG CAP PO SCH ×2 (09:12→20:22)
[2020-07-17] MEDS: METOPROLOL SUCC 25MG EXT REL TAB PO SCH ×2 (09:12→20:21)
[2020-07-17] MEDS: FERROUS SULFATE 325 MG TAB PO SCH ×2 (09:12→17:53)
[2020-07-17] MEDS: metFORMIN HCL 500 MG TAB PO SCH ×2 (09:13→17:53)
[2020-07-17] MEDS: SUCRALFATE 1 GM TAB PO SCH ×4 (09:13→20:21)
[2020-07-17] MEDS: busPIRone 5 MG TAB PO SCH ×2 (09:13→20:22)
[2020-07-17] MEDS: FLUTICASONE/UMECLIDIN/VILANTER INH SCH (09:14)
[2020-07-17] MEDS: INSULIN ASPART 100 UNITS/ML 3 ML PEN SC SCH ×4 (09:15→21:27)
--- NOTE | 2020-07-17 10:47 | Hospitalist Progress Note ---
Date of Service July 17, 2020 Assessment & Plan (1) Neurogenic claudication due to lumbar spinal stenosis: POD #2 from laminectomy with fusion from L4-S1 with Dr. Hairston Pain generally controlled with pain but does request Tylenol and lower doses of narcotics * She does report increased pain with therapies Tylenol is ordered 1 g p.o. every 8 hours as needed Further pain management per Dr. Hairston's team (2) COPD (chronic obstructive pulmonary disease): Patient currently is on Trelegy (ICS/AC/LABA) as an outpatient Was started on Anoro Ellipta (AC/LABA) We will add Arnuity Ellipta (ICS) Continue albuterol duo nebs and HFA inhaler as needed. No bronchospasm on exam so patient does not require scheduled nebulizer treatments Patient is encouraged to follow-up with the outpatient office (3) Type 2 diabetes mellitus: Well-controlled with a hemoglobin A1c of 5.6 07/16/2020 Metformin as an outpatient We will continue this while inpatient NovoLog sliding scale is also in place with BSG's ACHS Continue diabetic diet Random glucose is currently pending this morning (4) Diabetic neuropathy: Continue gabapentin 800 mg p.o. twice daily and 1200 mg p.o. HS (5) Esophageal dysphagia: Aspiration precautions reinforced with patient Continue good control of GERD Continue famotidine 20 mg p.o. every 12 hours as needed Patient is on pantoprazole 40 mg p.o. twice daily (6) AF (paroxysmal atrial fibrillation): Chronically anticoagulated with Eliquis Restart anticoagulation when okay with Dr. Hairston Currently rate controlled in the 70s and patient appears to be in atrial fibrillation on clinical exam Continue metoprolol succinate 25 mg p.o. twice daily Follow clinically (7) Depression: Continue Cymbalta and buspirone (8) Anxiety: Patient chronically on lorazepam as needed We will continue this while inpatient (9) Obesity hypoventilation syndrome: Patient currently is not receiving any noninvasive ventilation at home Advised her that she should follow-up with sleep medicine for polysomnography exam No indication for ABGs as serum CO2 is at 30 mmol/L and does not suggest hypercapnia Should patient exhibit confusion, we will check an arterial blood gas as patient could have H[employer] depression from increased analgesia postsurgically Continue to encourage outpatient follow-up with sleep medicine Patient was offered BiPAP while inpatient and refused (10) Hypothyroidism (acquired): Secondary to thyroid cancer and thyroidectomy Continue levothyroxine 200 mcg daily Patient is not on any other thyroid replacement Outpatient management (11) GERD (gastroesophageal reflux disease): Continue famotidine as needed and pantoprazole twice daily scheduled (12) DVT prophylaxis: Chemical prophylaxis per orthopedic spine team Ambulate as tolerated Thank you very much for including us in the care of this patient. We will sign off at this time. Please feel free to reconsult as needed Admission and Anticipated Discharge Date Admission Date: July 15, 2020 Subjective Attending: Dr. Suresh Patel Patient seen and examined at bedside today. She is in good spirits but has significant pain after therapies were completed this morning. She is requesting as needed pain meds at this time. Hemodynamically she is stable. She has no headache. She denies any fever, chills, sweats, rigors. No nausea or vomiting. No diarrhea. She had a relatively good night last night. She has no complaints of shortness of breath. She does have chronic cough with no sputum production. She is refusing nicotine patch. She has no other acute complaints. Review of Systems Review of Systems: All systems reviewed & are unremarkable except as noted in Subjective Physical Exam Physical Exam: GENERAL : No acute distress. Pleasant no conversational dyspnea EYES: No icterus, gaze conjugate NOSE: No evidence of epistaxis MOUTH: No lesions or candidiasis. Mucosa is moist NECK: Supple LUNGS: Lungs are completely clear to auscultation. Good inspiratory effort. HEART: Irregular, irregular with a rate in the 70s ABDOMEN: Soft, NT, ND, BS Present EXTREMITIES: Trace bilateral LE edema, pedal pulses intact and equal bilaterally NEURO: A&OX3. No focal deficits with cranial nerves II through XII on examination. Results & Data Results & Data ([facility]) Vital Signs (Past 12 Hours) Vital Signs Temp Pulse Resp BP BP Pulse Ox 07/17/20 07:21 36.6 C 80 16 110/64 96 07/16/20 23:18 37.1 C 87 18 83/55 L 126/72 96 Laboratory Results 07/16/20 05:32 07/16/20 05:32 Repeat labs are pending this morning Diagnostic Findings No additional diagnostic imaging performed PG Care Time/CCT Total # of Minutes Spent Total Time Spent with Patient: Total time spent is greater than 50% in coordination of care (as documented) at patient's floor/unit and/or counseling patient:20 minutes Coding Level of Care Code 88029 Subseq Hosp Care Lvl 2 Diagnoses Neurogenic claudication due to lumbar spinal stenosis M48.062 COPD (chronic obstructive pulmonary disease) J44.9 Type 2 diabetes mellitus E11.9 Diabetic neuropathy E11.40 Esophageal dysphagia R13.10 AF (paroxysmal atrial fibrillation) I48.0 Depression F32.9 Anxiety F41.9 Obesity hypoventilation syndrome E66.2 Hypothyroidism (acquired) E03.9 GERD (gastroesophageal reflux disease) K21.9 DVT prophylaxis Z29.9 Time Spent (min) 20
[2020-07-17 11:18] LABS: Basophils # (auto) 0.01 K/uL (0-0.2); Basophils % (auto) 0.1 %; Eosinophils # (auto) 0.07 K/uL (0-0.5); Eosinophils % (auto) 0.6 %; Hematocrit (blood only) 30.9 % (37-47); Hemoglobin 9.7 g/dL (12.0-16.0); Immature Granulocytes # (auto) 0.05 K/uL (0.00-0.02); Immature Granulocytes % (auto) 0.4 %; Lymphocytes # (auto) 1.75 K/uL (1.2-3.4); Mean Corpuscular Hemoglobin 28.2 pg (25-34); Mean Corpuscular Hgb Conc 31.4 g/dL (32-36); Mean Corpuscular Volume 89.8 fL (80-100); Mean Platelet Volume 9.4 fL (7.4-10.4); Monocytes # (auto) 1.66 K/uL (0.11-0.59); Monocytes % (auto) 13.3 %; Neutrophils # (auto) 8.97 K/uL (1.4-6.5); Neutrophils % (auto) 71.6 %; Platelet Count 267 K/uL (130-400); RDW Coefficient of Variation 14.1 % (11.5-14.5); RDW Standard Deviation 46.5 fL (36.4-46.3); Red Blood Count 3.44 M/uL (4.2-5.4); White Blood Count 12.51 K/uL (4.8-10.8)
[2020-07-17 11:37] LABS: BUN Creatinine Ratio 14.3 (10-20); Calcium 8.6 mg/dl (8.5-10.1); Creatinine Clr Calc Pharmacy 98.9 ml/min; Est GFR (African American) 98.1; Est GFR (Non-African American) 84.7; Potassium 4.4 mmol/L (3.5-5.1)
--- NOTE | 2020-07-17 12:33 | Pharmacy Report ---
Pharmacy Glycemic Short Note 2 - Date of Service July 17, 2020 - Glycemic Short BSG Results (Last 24 hours): 07/16/20 07/16/20 07/17/20 17:05 20:46 08:11 Glucose POC Glucose 100 H 119 H 154 H 07/17/20 07/17/20 10:51 12:03 Glucose 102 H POC Glucose 86 OUTPATIENT ANTIDIABETIC REGIMEN: * Metformin 1000 mg PO BIDM * HbA1c: 5.6% (07/16/20) ASSESSMENT: * is now POD #2 s/p L4-S decompression fusion * BSGs tightly controlled yesterday, 105, 111, 100, and 119 mg/dL * Metformin was restarted last evening - will continue * Will loosen Novolog parameters given tight BSG control yesterday * Continue to hold basal insulin at this time * Likely discharge tomorrow PLAN FOR INPATIENT GLYCEMIC CONTROL: * Hold outpatient oral diabetes medications * Basal insulin * Hold * Bolus insulin * NovoLog per scale ACHS or Q6hrs while NPO * Goal Range: Low 110 mg/dL - High 140 mg/dL * Correction Factor: 30 mg/dL/unit * Nutritional / Prandial insulin per carb ratio of 1 unit per 10 grams CHO consumed PLAN FOR DISCHARGE: * HbA1c of 5.6% demonstrates excellent outpatient glycemic control * Continue metformin 1000 mg PO BIDM
[2020-07-17] MEDS: traZODone HCL 100 MG TAB PO SCH (20:21)
[2020-07-17] MEDS: CETIRIZINE HCL 10 MG TABLET PO SCH (20:21)
[2020-07-17] MEDS: PRAVASTATIN SOD 20 MG TAB PO SCH (20:21)
[2020-07-17] MEDS: DOCUSATE SODIUM/SENNA 50/8.6MG TAB PO SCH (20:22)
[2020-07-17] MEDS: METHOCARBAMOL 500 MG TABLET PO PRN (21:27)
[2020-07-18] MEDS: oxyCODONE HCL IR 5 MG TAB (IMMEDIATE RELEASE) PO PRN ×2 (04:06→08:37)
[2020-07-18] MEDS: LEVOTHYROXINE SODIUM 200 MCG TABLET PO SCH (06:12)
[2020-07-18] MEDS: FOLIC ACID 1 MG TAB PO SCH (07:13)
[2020-07-18] MEDS: metFORMIN HCL 500 MG TAB PO SCH (07:14)
[2020-07-18] MEDS: GABAPENTIN 800 MG TAB PO SCH (07:14)
[2020-07-18] MEDS: SUCRALFATE 1 GM TAB PO SCH (07:14)
[2020-07-18] MEDS: FERROUS SULFATE 325 MG TAB PO SCH (07:14)
[2020-07-18] MEDS: PANTOprazole 40 MG TAB PO SCH (07:14)
[2020-07-18] MEDS: MAGNESIUM OXIDE 400 MG TAB PO SCH (07:14)
[2020-07-18] MEDS: METOPROLOL SUCC 25MG EXT REL TAB PO SCH (07:15)
[2020-07-18] MEDS: CYANOCOBALAMIN 500 MCG TABLET (VITAMIN B-12) PO SCH (07:15)
[2020-07-18] MEDS: CHOLECALCIFEROL 1,000 UNITS 25 MCG TAB PO SCH (07:15)
[2020-07-18] MEDS: DULoxetine HCL 60 MG CAP PO SCH (07:15)
[2020-07-18] MEDS: busPIRone 5 MG TAB PO SCH (07:15)
[2020-07-18] MEDS: FLUTICASONE/UMECLIDIN/VILANTER INH SCH (07:16)
[2020-07-18] MEDS: INSULIN ASPART 100 UNITS/ML 3 ML PEN SC SCH (08:31)
--- NOTE | 2020-07-18 10:25 | Discharge Summary ---
Date of Service July 18, 2020 Admission HPI Per Admitting Provider This is a 59-year-old female who presents with chronic persistent back and leg pain. After failing course of nonoperative care she is here for surgical intervention. Principal Diagnosis Lumbar spinal stenosis with neurogenic claudication Discharge Data Allergies Allergy/AdvReac Type Severity Reaction Status Date / Time bee pollen Allergy Severe Anaphylaxis Verified 07/15/20 10:33 buprenorphine [From Suboxone] Allergy Severe VOMITTING, Verified 07/15/20 10:33 SKIN PROBLEMS fentanyl Allergy Severe SEVERE Verified 07/15/20 10:33 SEDATION, RESP DEPRESSION Penicillins Allergy Severe ANAPHYLAXIS Verified 07/15/20 10:33 pregabalin Allergy Severe SHORTNESS Verified 07/15/20 10:33 OF BREATH adhesive Allergy Intermediate Blister-WITH Verified 07/15/20 10:33 SOME PLASTIC TAPE cephalexin Allergy Intermediate Nausea Verified 07/15/20 10:33 levofloxacin [From Levaquin] Allergy Intermediate CAUSES IBS Verified 07/15/20 10:33 ondansetron [From Zofran] Allergy Intermediate Migraine Verified 07/15/20 10:33 fluticasone Allergy Mild SEVERE Verified 07/15/20 10:33 THRUSH salmeterol Allergy Mild SEVERE Verified 07/15/20 10:33 THRUSH Bactrim Allergy Unknown SEVERE Verified 01/30/18 09:22 NAUSEA naloxone [From Suboxone] Allergy Unknown SEVERE Verified 07/15/20 10:33 NAUSEA sulfamethoxazole Allergy Unknown SEVERE Verified 07/15/20 10:33 NAUSEA trimethoprim Allergy Unknown SEVERE Verified 07/15/20 10:33 NAUSEA oxcarbazepine AdvReac Severe Severe Verified 07/15/20 10:33 [From Trileptal] stomach issues saccharin [From Sweeta] AdvReac Intermediate SEVERE Verified 07/15/20 10:33 VOMITING ketorolac AdvReac Mild headache Verified 07/15/20 10:33 Consultations 07/15/20 18:48 Consult Case Management - Discharge Planning Routine Consult Hospitalist Routine Procedures Performed Operation Date: 07/15/20 11:55 Actual Procedures p L4-S1 Decompression Fusion, application of Infuse, application of Stimulan beads, use of Osteoamp, Cage L4 -L5, Spinal Cord Monitoring(Not Applicable) - Ata Hairston, Ordered Studies 07/15/20 11:55 FL fluoroscopy <1hr Routine FL lumbar spine 2-3V Routine Hospital Course (1) Neurogenic claudication due to lumbar spinal stenosis: Patient underwent lumbar decompression fusion tolerated this well was taken to the orthopedic floor postoperative. Postop day 1 she was up and ambulating progressed the postop day #2 postop day #3 pain was well controlled strength intact subsequent discharge home. Discharge orders instructions from the chart for further review. Total Time Total Time Spent Total Time Spent (In Minutes): 20 minutes Discharge Plan Discharge Items Patient Disposition: Home - Self-Care Reason For Visit: Spinal Stenosis, Lumbar Region without Neurogenic Discharge Diagnosis: Lumbar spinal stenosis with neurogenic claudication Activity: As commented below Non-emergency contact: Primary Care Provider Call non-emergency contact if: you have any medication questions Follow-up/Referrals: Gerda Johnson, [Primary Care Provider] - Diet: Regular Addtl Attending Provider Instructions: ACTIVITY RECOMMENDATIONS: SELF CARE INSTRUCTIONS AFTER THORACIC/LUMBAR FUSIONS 1. You may walk to your tolerance. It is good exercise for your legs and back. Expect some back and intermittent leg aches and pains. 2. You may perform "counter-top" level activities (make a sandwich, danis with a project, etc.). 3. No bending or lifting of more than 10 pounds or back twisting of any nature (roll like a log when turning in bed). 4. You may ride in a car for 20-30 minutes at a time. No driving until after your first visit with your doctor. 5. Frequent changes of position and restricting sitting to 30 minutes at a time will help limit the amount of back spasms and stiffness you may experience. 6. You may discontinue the use of ambulatory aids (cane, crutches, etc.) once your strength and confidence allow. 7. You may patrol captain the shower and let water strike your incision when you arrive home at least once daily. Do not take a tub bath, sit in a hot tub or go into a swimming pool until after your first recheck in the office. SPECIAL CARE INSTRUCTIONS: VERY IMPORTANT TO READ AND REVIEW A. Your surgical incision has been closed with a cosmetic suture under the skin that will dissolve in about 6 weeks. In 14 days, you can use a pair of clean scissors and cut the suture that is left outside of the skin at the ends of your incision. 1. The small skin tapes can be removed 7 days after surgery if they have not fallen off by that point. 2. You may keep the wound open to air as much as possible to promote healing after post-op day number 5 unless told otherwise by your doctor. 3. If you think the wound looks like it is becoming infected (redness or worsening drainage) and/or you are experiencing fever, chill or worsening back pain and muscle spasms, contact the office so that we may evaluate you as soon as possible. B. Complications are uncommon, but please contact us if you have any signs or symptoms of: 1. wound infection (fever higher than 102.5 degrees F, redness, separation of wound, drainage, or increasing pain from the incision) 2. blood clots in legs (pain, swelling, redness and warmth in legs) 3. urinary tract infection (fever higher than 102.5 degrees F, burning upon urination or increased frequency of urination) 4. nerve problems (inability to walk on your toes or heels, numbness, loss of bowel or bladder control) 5. any other symptoms that concern you C. Please call the office at if you have any concerns or questions about your operation or recovery. D. No smoking! Smoking drastically decreases the chance of a solid fusion. E. Do not take any anti-inflammatory medications (Indocin, Advil, Motrin, Aspirin, Naprosyn, etc.) as these may inhibit the chance of a solid fusion. Tylenol is okay to take for pain. MANAGING PAIN AFTER SPINAL SURGERY 1. Narcotic medication is intended for short-term use and will be provided for surgical pain. Surgical pain usually lasts for a period of 4-6 weeks. Narcotic medication includes Percocet, Vicodin, Darvocet, Tylenol #3 or Lortab. 2. Longer-term pain is more appropriately treated with non-narcotic medication such as Tylenol ES. 3. Muscle spasm is not appropriately treated with narcotics. Muscle relaxers such as Soma, Flexeril or Skelaxin can be used along with Tylenol ES. 4. Remember that we all live with some "aches and pains". This is not unusual or uncommon after an injury or as we get older. a. Back pain is expected and may include muscle spasms for 4 to 6 weeks after surgery. The pain should gradually improve. If the pain worsens for no apparent reason, please contact the office. b. Intermittent leg pain may also be experienced and should not be concerned about unless it worsens for no apparent reason. If so, please contact the office. 5. We will provide appropriate medication within the normal guidelines of their prescribed use. We will also be very cautious and aware of potential abuse and extended duration of patients' medication needs. a. Pain medications are for your comfort and to assist with sleep and rest so that the tissue can heal. They are not provided in order to return to normal activity and should not be used through the day. To do so or worsening pain at night can result from ongoing tissue damage and development of tolerance to the prescribed medicine. 6. Please allow 2-3 days to process refills. Prescriptions will not be mailed but must be picked up at the office. FOLLOW UP VISIT: Keep your scheduled follow-up appointment. Any questions, please call the office at . Pending Studies at Discharge: No Stand-Alone Forms: My [employer], Smoking Cessation Medications and DC Order Prescriptions: New tramadol 50 mg tablet 50 mg PO Q6H PRN (Reason: pain, moderate) Qty: 20 RF: 0 oxycodone 5 mg tablet 5 mg PO Q6H PRN (Reason: pain, severe) Qty: 20 RF: 0 Continued (DME) Scooter Misc See Dose Instructions .ROUTE .MEDSUPPLY Qty: 1 RF: 0 (DME) Hospital Bed Misc See Rx Instructions .ROUTE .MEDSUPPLY Qty: 1 RF: 0 esomeprazole magnesium 40 mg capsule,delayed release(DR/EC) 40 mg PO BID Qty: 180 RF: 1 montelukast [Singulair] 10 mg tablet 10 mg PO DAILY PRN (Reason: allergy symptoms) Qty: 30 RF: 5 pravastatin 20 mg tablet 20 mg PO HS Qty: 90 RF: 1 metoprolol succinate 25 mg tablet extended release 24 hr 25 mg PO BID Qty: 60 RF: 5 Hold Instructions: hypotensive hydroxyzine pamoate [Vistaril] 25 mg capsule 25 mg PO TID PRN (Reason: Anxiety) Qty: 60 RF: 5 magnesium oxide 400 mg magnesium tablet 400 mg PO TID Qty: 90 RF: 5 duloxetine [Cymbalta] 60 mg capsule,delayed release(DR/EC) 60 mg PO BID 30 Days Qty: 60 RF: 5 sucralfate [Carafate] 1 gram tablet 1 g PO QID 14 Days Qty: 56 RF: 1 Hold Instructions: dose change promethazine 12.5 mg tablet 12.5 mg PO Q12H PRN (Reason: nausea and vomiting) Qty: 30 RF: 0 buspirone 10 mg tablet 10 mg PO BID Qty: 180 RF: 1 gabapentin 800 mg tablet 800 mg PO .COMPLEX Qty: 105 RF: 5 levocetirizine 5 mg tablet 5 mg PO HS Qty: 90 RF: 1 metformin 1,000 mg tablet 1,000 mg PO BID Qty: 180 RF: 3 trazodone 100 mg tablet 300 mg PO HS Qty: 90 RF: 1 methocarbamol 500 mg tablet 1,000 mg PO QID PRN (Reason: pain) Qty: 240 RF: 0 nystatin 100,000 unit/gram powder 1 applic topical BID Qty: 30 RF: 2 cyanocobalamin (vitamin B-12) 500 mcg tablet 1,000 mcg PO QAM Qty: 60 RF: 5 ferrous sulfate 325 mg (65 mg iron) tablet 325 mg PO BID Qty: 60 RF: 5 folic acid 1 mg tablet 1 mg PO QAM Qty: 30 RF: 5 hydrocodone-acetaminophen 5-325 mg tablet 1 tab PO Q8H PRN (Reason: pain) Qty: 30 RF: 0 Eliquis 5 mg tablet 5 mg PO BID Qty: 60 RF: 6 (DME) OneTouch Ultra Blue Test Strip strip See Dose Instructions .ROUTE .MEDSUPPLY Qty: 100 RF: 5 (DME) lancets [OneTouch Delica Lancets] 30 gauge misc See Dose Instructions .ROUTE .MEDSUPPLY Qty: 200 RF: 4 nitroglycerin [Nitrostat] 0.4 mg tablet, sublingual 0.4 mg Sublingual UD PRN (Reason: Pain) Qty: 30 RF: 5 (DME) Oxygen Home Liters Per Minute See Dose Instructions .ROUTE .MEDSUPPLY Qty: 1 RF: 0 albuterol sulfate 90 mcg/actuation HFA aerosol inhaler 2 puff INHALATION Q6H PRN (Reason: Wheezing) Qty: 18 RF: 5 albuterol sulfate 2.5 mg/0.5 mL solution for nebulization 2.5 mg INHALATION QID PRN (Reason: Wheezing) Qty: 30 RF: 5 clobetasol 0.05 % lotion 1 appln TOP BID PRN (Reason: itching) 14 Days Qty: 59 RF: 3 cholecalciferol (vitamin D3) 1,000 unit capsule 1,000 units PO QAM RF: 0 levothyroxine 200 mcg tablet 200 mcg PO QAM RF: 0 fluocinolone acetonide oil [DermOtic Oil] 0.01 % drops 5 drops OT BID PRN (Reason: Rash) RF: 0 Trelegy Ellipta 100-62.5-25 mcg blister with device 1 puffs INH QAM RF: 0 nystatin 100,000 unit/gram cream 1 appln TOP TID PRN (Reason: Rash) RF: 0 mupirocin 2 % ointment 1 appln TOP TID PRN (Reason: Rash) RF: 0 enoxaparin 30 mg/0.3 mL Solution SUBCUT RF: 0 Discharge Orders: Discharge Order (Routine); Ordered 07/18/20 Ordered By: Ata Hairston Admission Data Admit Date/Time: 07/15/20 15:21 Attending Provider: Ata Hairston Admit Provider: Ata Hairston Primary Care Provider: Gerda Johnson. Other Providers: Kike Rodgers ; Sigrid Wagoner ; Frank Hancock ; Jarocho Blanca ; Britany Alejandro ; Cody Villasenor ; Brigido Kaplan ; Sergo Ross ; Makayla Adamson ; Luz Bearden ; Rizwana Ramesh ; Filiberto Baires ; Aparna Mckeon ; Omaira Noel ; Meg Jefferson ; Dieter Randolph ; Edison Perez ; Vandana Leslie ; Magnolia Gaston ; Israel Bentley ; Frank Escobar ; Skinny Acevedo ; Cynthia Fernandez ; Tao Fernandez ; Suresh aPtel ; Dara Deras ; Navin Munoz ; Andrea Bourgeois ; Dev Samuels
== END 2020-07-18 12:04 | disposition home health service (06) | DRG 454 ==
LOC: ASU 10:08 → 3E 15:21

== ENCOUNTER 2022-12-01 09:23 | Inpatient (IN) ==
--- NOTE | 2022-11-24 10:35 | Anesthesiology Consultation ---
Date of Service November 24, 2022 Assessment & Plan (1) Encounter for pre-operative examination: Plan - hyponatremia: 129. Case discussed with Dr. Nguyen who advised contacting PCP regarding hyponatremia. Awaiting PCP response to workload note. Surgeon's office made aware. - Check BSG AM DOS. - Eliquis instructions per surgeon/prescriber. - PCP 11/09/22 [place]: "...Carotid artery stenosis: DESHAUN stenosis noted on Carotid UA 08/26/22, 50-69% LICA stenosis, >50% L subclavian A stenosis-established w/ Dr Aiken, to have CTA head/neck. Severe sleep apnea: has been started on CPAP therapy, following w/ pulm/sleep. COPD (chronic obstructive pulmonary disease): stable, continue Trelegy, care per pulmonary. Type 2 diabetes mellitus: Well controlled...AF (paroxysmal atrial fibrillation): stable, continue metoprolol, continue Eliquis bid for anticoagulation. continue care per cardiology. Coronary artery disease: stable, continue statin, beta caroline, care per cardiology...Esophageal dysphagia: Fair control, continue care per GI. Last EGD March 2022 with dilatation..." - cardiology 10/14/22 [place]: "...stable from cardiovascular standpoint. She demonstrates excellent control of her blood pressure and HDL cholesterol...LDL cholesterol remains elevated, therefore, we will increase her pravastatin...continues to tolerate rate control and long-term anticoagulation without difficulty...Increase pravastatin to 40 mg daily...Continue all other medications...Continue physical activity as able...Continue home blood pressure monitoring...Lipid panel prior next visit...Follow-up 6 months." - pulmonology 08/02/22 [place]: "...COPD: Gold stage 0. Continue Trelegy as needed...Severe sleep apnea...CPAP at 10 cmH2O with oxygen bleed at 1 L/min..." - Hx post-op infection after back surgery: Recent office visit by infectious disease per pt. Will attempt to obtain most recent infectious disease office visit note (Dr. Carmelo Mckeon, [place]) for chart completion if possible. - COVID screening: Per vulnerability assessment analyst on 11/24/2022: Travel screen negative, no known COVID-19 positive contacts or current COVID-19 related symptoms in past 2 weeks. To surgeon's discretion if preop COVID testing is needed. Chart Review Chart Review: Pending: Refer to Additional Notes / Consult section and Patient NOT seen in Pre Admission Testing History Surgery Operation Date: 12/01/22 12:00 Proposed Procedures p Right Transcarotid Artery Revascularization - Celso Aiken MD Height/Weight Height: 5 ft 5 in Weight: 117.934 kg Allergies Allergy/AdvReac Type Severity Reaction Status Date / Time bee pollen Allergy Severe Anaphylaxis Verified 11/24/22 09:35 fentanyl Allergy Severe Severe Verified 11/24/22 09:35 sedation, resp depression (only with patches) Penicillins Allergy Severe Anaphylaxis Verified 11/24/22 09:35 adhesive Allergy Unknown Blister Verified 11/24/22 09:35 (wipe some plastic tape) buprenorphine [From Suboxone] Allergy Unknown Vomiting, Verified 11/24/22 09:35 skin problems honey Allergy Unknown Hives Verified 11/24/22 09:35 pregabalin Allergy Unknown Shortness Verified 11/24/22 09:35 of breath oxcarbazepine AdvReac Severe Severe Verified 11/24/22 09:35 [From Trileptal] stomach issues sulfamethoxazole AdvReac Severe Severe Verified 11/24/22 09:35 nausea trimethoprim AdvReac Severe Severe Verified 11/24/22 09:35 nausea cephalexin AdvReac Unknown Nausea Verified 11/24/22 09:35 clindamycin AdvReac Unknown Diarrhea Verified 11/24/22 09:35 fluticasone AdvReac Unknown Severe Verified 11/24/22 09:35 thrush ketorolac AdvReac Unknown Migraine Verified 11/24/22 09:35 levofloxacin [From Levaquin] AdvReac Unknown IBS ("can Verified 11/24/22 09:35 only tolerate for 5 days") naloxone [From Suboxone] AdvReac Unknown Severe Verified 11/24/22 09:35 nausea, SKIN PROBLEMS ondansetron [From Zofran] AdvReac Unknown Migraine Verified 11/24/22 09:35 saccharin [From Sweeta] AdvReac Unknown Severe Verified 11/24/22 09:35 vomiting salmeterol AdvReac Unknown Severe Verified 11/24/22 09:35 thrush Medications Home Medications Medication Instructions Recorded Confirmed Last Taken Oxygen Home #1 ea 03/20/19 11/09/22 Unknown clobetasol 0.05 % lotion 1 appln topical BID PRN itching 2 10/16/19 11/24/22 03/22/22 weeks #59 mL Hospital Bed Homecare (Hospital #1 ea 11/14/19 11/09/22 Unknown Bed) cholecalciferol (vitamin D3) 25 1,000 units PO QAM 06/12/20 11/24/22 04/05/22 09:00 mcg (1,000 unit) capsule blood-glucose meter (OneTouch #1 ea 09/18/20 11/09/22 Unknown Verio Meter) doxycycline hyclate 100 mg capsule 100 mg PO QPM 06/17/21 11/24/22 04/05/22 20 :00 blood sugar diagnostic #100 ea 06/19/21 11/09/22 Unknown lancets 30 gauge (OneTouch Delica #200 ea 06/19/21 11/09/22 Unknown Lancets) albuterol sulfate 2.5 mg/0.5 mL 2.5 mg (0.5 mL) inhalation QID PRN 07/13/21 11/24/22 04/03/22 solution for nebulization Wheezing #30 ea guaifenesin 1,200 mg tablet, 1,200 mg PO Q12H PRN Nasal 11/11/21 11/24/22 04/05/22 09:00 extended release 12 hr (Mucinex) Congestion ezetimibe 10 mg tablet (Zetia) 10 mg PO HS #30 tabs 01/11/22 11/24/22 04/05/22 20:00 apixaban 5 mg tablet (Eliquis) 5 mg PO BID #90 tabs 02/05/22 11/24/22 04/04/22 cyanocobalamin (vitamin B-12) 500 1,000 mcg PO Q2D #60 tabs 03/23/22 11/24/22 04/05/22 09:00 mcg tablet albuterol sulfate 90 mcg/actuation 2 puff inhalation Q6H PRN Wheezing 04/19/22 11/24/22 Unknown aerosol inhaler #18 grams fluticasone fur. 100 mcg-umeclid 1 inh inhalation QAM #60 ea 04/19/22 11/24/22 Unknown 62.5 mcg-vilant 25 mcg inhalat.powder (Trelegy Ellipta) duloxetine 60 mg capsule,delayed 60 mg PO BID 7 days #60 caps 06/02/22 11/24/22 Unknown release (Cymbalta) nitroglycerin 0.4 mg sublingual 0.4 mg sublingual UD PRN Pain #25 07/20/22 11/24/22 Unknown tablet (Nitrostat) tabs folic acid 1 mg tablet 1 mg PO QAM #90 tabs 07/22/22 11/24/22 Unknown CPAP Machine #1 ea 08/02/22 11/09/22 Unknown esomeprazole magnesium 40 mg 40 mg PO BID #180 caps 08/03/22 11/24/22 Unknown capsule,delayed release levocetirizine 5 mg tablet 5 mg PO HS #90 tabs 08/03/22 11/24/22 Unknown levothyroxine 200 mcg tablet 200 mcg PO QAM #90 tabs 08/03/22 11/24/22 Unknown levothyroxine 50 mcg tablet 75 mcg PO QAM #135 tabs 08/03/22 11/24/22 Unknown hydroxyzine pamoate 25 mg capsule 25 mg PO TID PRN Anxiety #60 caps 08/30/22 11/24/22 Unknown (Vistaril) ferrous sulfate 325 mg (65 mg 325 mg PO BID #60 tabs 08/31/22 11/24/22 Unknown iron) tablet magnesium oxide 400 mg PO TID #270 tabs 09/03/22 11/24/22 Unknown montelukast 10 mg tablet 10 mg PO QAM #90 tabs 09/03/22 11/24/22 Unknown (Singulair) metoprolol succinate 25 mg 25 mg PO BID #180 tabs 09/06/22 11/24/22 Unknown tablet,extended release 24 hr buspirone 10 mg tablet 10 mg PO TID #270 tabs 09/27/22 11/24/22 Unknown methocarbamol 500 mg tablet 1,000 mg PO QID 30 days #240 tabs 09/27/22 11/24/22 Unknown gabapentin 800 mg tablet 800 mg PO UD #105 tabs 10/21/22 11/24/22 Unknown clobetasol 0.05 % scalp solution 1 applic topical DAILY #50 mL 10/22/22 11/24/22 Unknown mometasone 0.1 % topical cream 1 applic topical DAILY PRN 02/03/23 03/08/23 Unknown allergic reaction #15 grams trazodone 100 mg tablet 300 mg PO HS #90 tabs 10/22/22 11/24/22 Unknown benzonatate 200 mg capsule 200 mg PO TID PRN cough #30 caps 10/29/22 11/24/22 Unknown pravastatin 40 mg tablet 40 mg PO HS #30 tabs 11/11/22 11/24/22 Unknown oxycodone 10 mg tablet 10 mg PO Q12H PRN pain, severe #60 11/16/22 11/24/22 Unknown tabs sucralfate 1 gram tablet (Carafate) 1 g PO BID PRN Acid Reflux #60 tabs 11/16/22 11/24/22 Unknown nystatin 100,000 unit/gram topical 1 applic topical BID #30 grams 11/23/22 11/24/22 Unknown powder clotrimazole-betamethasone 1 1 applic topical UD 11/24/22 11/24/22 Unknown %-0.05 % topical cream oxybutynin chloride 5 mg tablet 10 mg PO BID 11/24/22 11/24/22 Unknown semaglutide 1 mg/dose (4 mg/3 mL) 1 mg subcut WK 11/24/22 11/24/22 Unknown subcutaneous pen injector Past Medical History Medical History (Updated 11/24/22 @ 10:24 by Kasandra Gould PA-C) AF (paroxysmal atrial fibrillation) Takes Eliquis NO HX CARDIOVERSION Allergic rhinitis Anemia Anxiety Carotid artery narrowing Per 08/26/22 carotid duplex= >70% stenosis to right ICA (>80% by EDV), 50-69% stenosis to left ICA, antegrade flow to right vertebral artery, >50% left subclavian artery stenosis (bi-directional flow in left vertebral artery 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) to see Dr Aiken 10/27/22 Chronic hyponatremia Chronic interstitial cystitis COPD (chronic obstructive pulmonary disease) Coronary artery disease Minor nonobstructive CAD per September 2012 cath per cardio records No hx stents or angioplasty Depression Diabetic neuropathy Diffuse myofascial pain syndrome GERD (gastroesophageal reflux disease) Well controlled and stable History of TN (myocardial infarction) 2010 History of seizures Age 3 (in setting of fever/measles) Hx of deep venous thrombosis 3 years ago- Takes Eliquis Hx of thyroid cancer s/p thyroidectomy + XRT (one round) Hyperlipidemia Hypertension BP fluctuates Hypothyroidism (acquired) S/p thyroidectomy 2015 (final pathology negative for malignancy) Meralgia paresthetica of right side Follows with neuro Mixed hearing loss of right ear No hearing aids Morbid obesity Obesity hypoventilation syndrome Personal history of pulmonary embolism 2014- Takes Master Personal history of skin cancer s/p excision from RLE Psoriatic arthritis No meds at this time- follows with rheum Severe sleep apnea 5L oxygen via N/C- (WAITING ON CPAP DEVICE) Follows with pulm TIA (transient ischemic attack) 2013 Type 2 diabetes mellitus IDDM Past Family History Family History Mother Diabetes Family history of diabetes mellitus Cardiac disorder Heart trouble Myocardial infarction Renal failure Family history of reaction to anesthesia nausea/vomiting Hypertension Stroke Gallbladder disease Grandfather Family hx of colon cancer Myocardial infarction Father Colon cancer Cardiac disorder Kidney stones Heart trouble Myocardial infarction Degenerative disc disease Lung disease Hypertension Stroke Aunt Colon cancer Diabetes Grandmother (Maternal) Degenerative disc disease Cancer Sister Diabetes Family history of diabetes mellitus Breast cancer Cancer Hypertension Gallbladder disease Family/Other Kidney disease Brother Multiple sclerosis Uncle Myocardial infarction Grandfather (Maternal) Family history of diabetes mellitus Aunt Diabetes Aunt Diabetes Aunt Diabetes Aunt Diabetes Aunt Diabetes Other Dementia Denies family history of Ovarian cancer Prostate cancer Adverse effect of anesthesia Bleeding disorder Past Surgical History Surgical History (Updated 11/24/22 @ 10:29 by Kasandra Gould PA-C) H/O cataract extraction R/L H/O colonoscopy with polypectomy History of appendectomy History of back surgery x5 (including fusion). 07/15/20 Grade 1 view, MAC 3, ETT 7. History of breast biopsy Left (benign) History of cardiac cath x7 (09/2012 > no stents) History of cervical spinal surgery x2 (GOOD ROM per pt) History of cystoscopy Multiple History of esophagogastroduodenoscopy (EGD) History of incision and drainage I&D lumbar spine incision w/ placement of abx beads and wound vac - NO CURRENT WOUND VAC/ANTIBIOTIC DAILY (DOXYCYCLINE) 08/11/20 Grade 1 view, MAC 3, ETT 7. History of knee replacement R/L History of placement of ear tubes R/L History of thyroidectomy, total History of tonsillectomy S/P section x2 S/P dilatation and curettage Social History Smoking Status: Current every day smoker tobacco type: cigarettes Smoking cigarettes per day: .5PPD/ADVISED NPO Do You Dip or Chew Tobacco: No Hx Alcohol Use: No Hx Substance Use: Yes (IN THE 70'S) substance use type: does not use Lab Results Anesthesia Preop Results Results Anesthesia Widget: WBC 10.38 K/ul (4.8-10.8) 10/26/22 Hgb 11.5 g/dl (12.0-16.0) L 10/26/22 Hct 36.1 % (37.0-47.0) L 10/26/22 Plt 273 K/uL (130-400) 10/26/22 Na 129 mmol/L L 11/17/22 K 4.6 mmol/L (3.5-5.1) 11/17/22 Cl 95 mmol/L L 11/17/22 CO2 26.3 mmol/L (21-32) 11/17/22 BUN 17.7 mg/dL (7-18) 11/17/22 Creat 1.02 mg/dL (0.6-1.2) 11/17/22 Glucose Level 105 mg/dL (70-99) H 11/17/22 PT 10.7 Seconds (9.0-12.0) 11/23/22 PTT 32.4 Seconds (21.0-31.0) H 11/23/22 INR 1.0 (0.9-1.1) 11/23/22 Blood Type A Positive 11/23/22 Antibody Screen NEGATIVE 11/23/22 Testing Electrocardiogram Date: 07/13/22 NSR, rate [address] abnormality Chest X-Ray Date: 10/16/22 Hazy bilateral airspace opacities. Echocardiogram Date: 11/22/18 EF 55-60% No regional wall motion abnormalities Mild to moderate cLVH No significant diastolic dysfunction No significant valvular abnormalities Other Testing Neck CTA 11/12/22 1. Hemodynamically significant stenosis of the bilateral internal carotid arteries near the bifurcation. 2. Hemodynamically significant stenosis of the left subclavian artery, clinical correlation for subclavian steal syndrome is recommended. Chest CT 10/26/22 Thyroid: Atrophic. Thoracic aorta: There is atherosclerotic calcification of the thoracic aorta, which is normal in caliber and demonstrates standard 3-vessel arch anatomy. Heart: The heart is normal in size and without pericardial effusion. The coronary arteries are densely calcified. Lungs and pleural spaces: Evaluation of the lung parenchyma is degraded by motion artifact. There is mild emphysematous change. No airspace consolidation or pleural effusion is identified. The trachea and central airways are clear. Faint centrilobular micronodules and groundglass change is present in both lungs with an upper lobe predominance. This suggests a bronchiolitis. There is mild diffuse pericardial thickening. Minimal mucous plugging is seen in the right lower lobe. There are scattered calcified granulomas. A 3 mm linear nodule in the right upper lobe on image #98 is unchanged from 2020. Mediastinum: There is no mediastinal lymphadenopathy. Digna: Not well assessed without IV contrast. Axillae: There is no axillary lymphadenopathy. Upper abdomen: There is a small hiatal hernia. Partially visualized upper abdominal viscera is within normal limits. Skeletal structures: The skeletal structures are osteopenic. No lytic or blastic bony lesions are seen. Advanced arthritic change is seen in the shoulders. Degenerative changes and kyphoscoliosis is noted in the thoracic spine. IMPRESSION: 1. Mild emphysema. 2. Findings suggest bronchiolitis. Clinical correlation will be required. 3. There is no lobar consolidation or pleural effusion. 4. Advanced coronary artery calcification. 5. Additional findings as above. Carotid doppler 08/26/22 > 70% stenosis R ICA 50-69% stenosis L ICA > 50% stenosis L subclavian artery stenosis Abdomen pelvis CT 12/25/21 Lung base: The lung bases are clear. Abdominal cavity: There is no evidence for abdominal mass, adenopathy or ascites. Liver: There is homogeneous attenuation of the liver parenchyma. There is no evidence for enhancing mass lesion. Spleen: There is homogeneous attenuation of the splenic parenchyma. There is no enhancing mass lesion. Pancreas: There is homogeneous attenuation of the pancreatic parenchyma. There is no evidence for mass lesion or peripancreatic fluid collection. Gall Bladder: The gallbladder is well distended with no evidence for intraluminal calculi, wall thickening or pericholecystic edema. Adrenal glands: The adrenal glands are normal in size and attenuation. There is no evidence for enhancing mass lesion. Kidneys: There is homogeneous attenuation of the renal parenchyma bilaterally. There is no evidence for renal calculus or hydronephrosis. There is no evidence for enhancing mass. Sharply defined exophytic cyst is again seen involving the left kidney measuring 2.0 cm. Bowel: There is a small hiatal hernia. The bowel loops are normally placed within the abdomen and pelvis without evidence for dilatation or obstruction. There is no evidence for mass lesion. There is sigmoid diverticulosis without evidence for diverticulitis. There are no inflammatory changes present. There is no evidence for free air. Bladder: On the current study, there is suspicion of a small filling defect at the floor the bladder centrally and to the left measuring 3.1 x 1.1 cm. The presence of a bladder mass cannot be excluded and follow-up direct visualization is recommended. : There is no evidence for pelvic mass or adenopathy. There is no evidence for pelvic ascites. The patient is again status post hysterectomy. Vasculature: There is no evidence for aneurysmal dilatation of the abdominal aorta. Atherosclerotic calcification is again seen. Osseous structures: There is no acute osseous pathology. Previous internal fixation and degenerative changes are again seen. IMPRESSION: 1. Compared to previous examination, there is suspicion of a small filling defect at the floor the bladder measuring 3.1 x 1.1 cm. Direct visualization is recommended. 2. No renal calculus or hydronephrosis. 3. No other evidence for acute intra-abdominal or pelvic abnormality. 4. Additional nonacute findings are again delineated above.
[~2022-12-01 09:23] MED LIST changes: -CLINDAMYCIN 600 MG/54 ML BAG IV SCH; -GABAPENTIN 600 MG DOSE PO SCH; +LACTATED RINGER'S 1,000 ML IV SCH; -LR 15ML/HR IV SCH; +VANCOMYCIN HCL 1,750 MG in SODIUM CHLORIDE 0.9% 500 ML IV SCH
--- NOTE | 2022-12-01 10:29 | History & Physical Report ---
Date of Service December 01, 2022 History of Present Illness Primary Care Provider: Gerda Johnson DO Reason for Consultation Bilateral carotid artery stenosis History of Present Illness I the pleasure of seeing Leona today for evaluation of her carotid disease. As you know she is a 62-year-old female with multiple medical problems. She had an ultrasound done the fall of last year which showed a severe stenosis of her right internal carotid artery. She does claim to have had a stroke in 2005 at the same time that she had a deep venous thrombosis of her lower extremity. She underwent tPA at that time with total resolution of her cerebrovascular symptoms. 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 She denies any neurological symptoms since 2005. The ultrasound at that time showed a 50% stenosis of the right carotid and no narrowing of the left side. She denies any claudication of her lower extremities. She did have an echo done last fall showed an ejection fraction of 55%. Review of Systems 10 systems reviewed. Positive findings at that time were seizure at age 3. Breast lump and nipple discharge in the past. Irregular heartbeat cough wheezing nausea heartburn constipation diarrhea incontinence kidney stone blood in her urine severe arthritis She does have a history of heart disease hypertension diabetes cancer tuberculosis and kidney disease. Physical Exam Vitals & Measurements Input and Output - Last 24 hours (Last 8 hours) No I/O Data Found: Physical exam he is awake alert and oriented x3. She is in no apparent distress. Her blood pressure is 106 systolic on the right 98 systolic on the left. Her radials carotids are +2 bilaterally. I cannot appreciate carotid bruits. Lungs were clear. Heart had a regular rate and rhythm. Abdominal exam was benign. I cannot appreciate an aortic pulse due to the body habitus. Femoral pedal's are +2 bilaterally. Neurologic exam is intact motor and sensory function. Diagnostic Results Carotid ultrasound showed a left carotid with velocities to 247/76 with a right carotid velocity of 595/161. Assessment/Plan Carotid stenosis, bilateral This point Leona has bilateral asymptomatic carotids with the right side being over 90% in the left side in the 60 to 79% range. Recommend a CT angiogram to better define the narrowings. Further treatment will be determined by the results of the CAT scan. She may be a candidate for TCAR procedure on her right carotid. We will keep you informed as to her follow-up with and future plans. Thank you very much for letting us participate in the care of this patient. Sincerely, Ally Aiken MD Problem List/Past Medical History Ongoing Carotid stenosis, bilateral Historical No qualifying data Medications Inpatient No active inpatient medications Home No active home medications Allergies No active allergies Signature Line Electronic Signature on File Celso Aiken MD Author Signature Dt/Tm: 10/27/2022 10:08 AM Medical Policy Specialist [place] [facility] [place] [address] [place] [address] EJS Result Type: .Outpt Ltr Date of Service: October 27, 2022 10:01 EST Authorization Status: Final Subject: Consult Note Author or Import Date: MD Aiken Eugene J on October 27, 2022 10:08 EST Verified By: MD Aiken Eugene J on October 27, 2022 10:08 EST Encounter info: [id number], [place] [id number], Clinic, 10/27/2022 - 10/27/2022 Allergies Allergy/AdvReac Type Severity Reaction Status Date / Time bee pollen Allergy Severe Anaphylaxis Verified 12/01/22 09:48 fentanyl Allergy Severe Severe Verified 12/01/22 09:48 sedation, resp depression (only with patches) Penicillins Allergy Severe Anaphylaxis Verified 12/01/22 09:48 adhesive Allergy Unknown Blister Verified 12/01/22 09:48 (wipe some plastic tape) buprenorphine [From Suboxone] Allergy Unknown Vomiting, Verified 12/01/22 09:48 skin problems honey Allergy Unknown Hives Verified 12/01/22 09:48 pregabalin Allergy Unknown Shortness Verified 12/01/22 09:48 of breath oxcarbazepine AdvReac Severe Severe Verified 12/01/22 09:48 [From Trileptal] stomach issues sulfamethoxazole AdvReac Severe Severe Verified 12/01/22 09:48 nausea trimethoprim AdvReac Severe Severe Verified 12/01/22 09:48 nausea cephalexin AdvReac Unknown Nausea Verified 12/01/22 09:48 clindamycin AdvReac Unknown Diarrhea Verified 12/01/22 09:48 fluticasone AdvReac Unknown Severe Verified 12/01/22 09:48 thrush ketorolac AdvReac Unknown Migraine Verified 12/01/22 09:48 levofloxacin [From Levaquin] AdvReac Unknown IBS ("can Verified 12/01/22 09:48 only tolerate for 5 days") naloxone [From Suboxone] AdvReac Unknown Severe Verified 12/01/22 09:48 nausea, SKIN PROBLEMS ondansetron [From Zofran] AdvReac Unknown Migraine Verified 12/01/22 09:48 saccharin [From Sweeta] AdvReac Unknown Severe Verified 12/01/22 09:48 vomiting salmeterol AdvReac Unknown Severe Verified 12/01/22 09:48 thrush Home Medications Medication Instructions Recorded Confirmed Type Oxygen Home #1 ea 03/20/19 11/09/22 Rx clobetasol 0.05 % lotion 1 appln topical BID PRN itching 2 10/16/19 12/01/22 Rx weeks #59 mL Hospital Bed Homecare (Hospital #1 ea 11/14/19 11/09/22 Rx Bed) cholecalciferol (vitamin D3) 25 1,000 units PO QAM 06/12/20 12/01/22 History mcg (1,000 unit) capsule blood-glucose meter (OneTouch #1 ea 09/18/20 11/09/22 Rx Verio Meter) doxycycline hyclate 100 mg capsule 100 mg PO QPM 06/17/21 12/01/22 History lancets 30 gauge (OneTouch Delica #200 ea 06/19/21 11/09/22 Rx Lancets) albuterol sulfate 2.5 mg/0.5 mL 2.5 mg (0.5 mL) inhalation QID PRN 07/13/21 12/01/22 Rx solution for nebulization Wheezing #30 ea guaifenesin 1,200 mg tablet, 1,200 mg PO Q12H PRN Nasal 11/11/21 12/01/22 History extended release 12 hr (Mucinex) Congestion ezetimibe 10 mg tablet (Zetia) 10 mg PO HS #30 tabs 01/11/22 12/01/22 Rx apixaban 5 mg tablet (Eliquis) 5 mg PO BID #90 tabs 02/05/22 12/01/22 Rx cyanocobalamin (vitamin B-12) 500 1,000 mcg PO Q2D #60 tabs 07/05/22 03/15/23 Rx mcg tablet albuterol sulfate 90 mcg/actuation 2 puff inhalation Q6H PRN Wheezing 04/19/22 12/01/22 Rx aerosol inhaler #18 grams duloxetine 60 mg capsule,delayed 60 mg PO BID 7 days #60 caps 06/02/22 12/01/22 Rx release (Cymbalta) nitroglycerin 0.4 mg sublingual 0.4 mg sublingual UD PRN Pain #25 07/20/22 12/01/22 Rx tablet (Nitrostat) tabs folic acid 1 mg tablet 1 mg PO QAM #90 tabs 07/22/22 12/01/22 Rx CPAP Machine #1 ea 08/02/22 11/09/22 Rx levothyroxine 200 mcg tablet 200 mcg PO QAM #90 tabs 08/03/22 12/01/22 Rx levothyroxine 50 mcg tablet 75 mcg PO QAM #135 tabs 08/03/22 12/01/22 Rx hydroxyzine pamoate 25 mg capsule 25 mg PO TID PRN Anxiety #60 caps 08/30/22 12/01/22 Rx (Vistaril) ferrous sulfate 325 mg (65 mg 325 mg PO BID #60 tabs 08/31/22 12/01/22 Rx iron) tablet magnesium oxide 400 mg PO TID #270 tabs 09/03/22 12/01/22 Rx montelukast 10 mg tablet 10 mg PO QAM #90 tabs 09/03/22 12/01/22 Rx (Singulair) metoprolol succinate 25 mg 25 mg PO BID #180 tabs 09/06/22 12/01/22 Rx tablet,extended release 24 hr gabapentin 800 mg tablet 800 mg PO UD #105 tabs 10/21/22 12/01/22 Rx clobetasol 0.05 % scalp solution 1 applic topical DAILY #50 mL 10/22/22 12/01/22 Rx mometasone 0.1 % topical cream 1 applic topical DAILY PRN 10/22/22 12/01/22 Rx allergic reaction #15 grams trazodone 100 mg tablet 300 mg PO HS #90 tabs 10/22/22 12/01/22 Rx benzonatate 200 mg capsule 200 mg PO TID PRN cough #30 caps 10/29/22 12/01/22 Rx pravastatin 40 mg tablet 40 mg PO HS #30 tabs 11/11/22 12/01/22 Rx oxycodone 10 mg tablet 10 mg PO Q12H PRN pain, severe #60 11/16/22 12/01/22 Rx tabs sucralfate 1 gram tablet (Carafate) 1 g PO BID PRN Acid Reflux #60 tabs 11/16/22 12/01/22 Rx nystatin 100,000 unit/gram topical 1 applic topical BID #30 grams 11/23/22 12/01/22 Rx powder blood sugar diagnostic #100 ea 11/24/22 Rx clotrimazole-betamethasone 1 1 applic topical UD 11/24/22 12/01/22 History %-0.05 % topical cream oxybutynin chloride 5 mg tablet 10 mg PO BID 11/24/22 12/01/22 History semaglutide 1 mg/dose (4 mg/3 mL) 1 mg subcut WK 11/24/22 12/01/22 History subcutaneous pen injector (Ozempic) buspirone 10 mg tablet 10 mg PO TID #270 tabs 11/26/22 12/01/22 Rx methocarbamol 500 mg tablet 1,000 mg PO QID 30 days #240 tabs 11/26/22 12/01/22 Rx fluticasone fur. 100 mcg-umeclid 1 inh inhalation QAM #60 ea 11/30/22 12/01/22 Rx 62.5 mcg-vilant 25 mcg inhalat.powder (Trelegy Ellipta) esomeprazole magnesium 40 mg 40 mg PO BID 12/01/22 12/01/22 History capsule,delayed release (Nexium) levocetirizine 5 mg tablet (Xyzal) 5 mg PO HS 12/01/22 12/01/22 History Past Med/Surg History Medical History AF (paroxysmal atrial fibrillation) Takes Eliquis NO HX CARDIOVERSION Allergic rhinitis Anemia Anxiety Carotid artery narrowing Per 08/26/22 carotid duplex= >70% stenosis to right ICA (>80% by EDV), 50-69% stenosis to left ICA, antegrade flow to right vertebral artery, >50% left subclavian artery stenosis (bi-directional flow in left vertebral artery 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) to see Dr Aiken 10/27/22 Chronic hyponatremia Chronic interstitial cystitis COPD (chronic obstructive pulmonary disease) Coronary artery disease Minor nonobstructive CAD per September 2012 cath per cardio records No hx stents or angioplasty Depression Diabetic neuropathy Diffuse myofascial pain syndrome GERD (gastroesophageal reflux disease) Well controlled and stable History of IA (myocardial infarction) 2009 History of seizures Age 3 (in setting of fever/measles) Hx of deep venous thrombosis 3 years ago- Takes Eliquis Hx of thyroid cancer s/p thyroidectomy + XRT (one round) Hyperlipidemia Hypertension BP fluctuates Hypothyroidism (acquired) S/p thyroidectomy 2015 (final pathology negative for malignancy) Meralgia paresthetica of right side Follows with neuro Mixed hearing loss of right ear No hearing aids Morbid obesity Obesity hypoventilation syndrome Personal history of pulmonary embolism 2014- Takes Eliquis Personal history of skin cancer s/p excision from RLE Psoriatic arthritis No meds at this time- follows with rheum Severe sleep apnea 5L oxygen via N/C- (WAITING ON CPAP DEVICE) Follows with pulm TIA (transient ischemic attack) 2013 Type 2 diabetes mellitus IDDM Surgical History H/O cataract extraction R/L H/O colonoscopy with polypectomy History of appendectomy History of back surgery x5 (including fusion). 07/15/20 Grade 1 view, MAC 3, ETT 7. History of breast biopsy Left (benign) History of cardiac cath x7 (09/2012 > no stents) History of cervical spinal surgery x2 (GOOD ROM per pt) History of cystoscopy Multiple History of esophagogastroduodenoscopy (EGD) History of incision and drainage I&D lumbar spine incision w/ placement of abx beads and wound vac - NO CURRENT WOUND VAC/ANTIBIOTIC DAILY (DOXYCYCLINE) 08/11/20 Grade 1 view, MAC 3, ETT 7. History of knee replacement R/L History of placement of ear tubes R/L History of thyroidectomy, total History of tonsillectomy S/P section x2 S/P dilatation and curettage Family History Mother Diabetes Family history of diabetes mellitus Cardiac disorder Heart trouble Myocardial infarction Renal failure Family history of reaction to anesthesia nausea/vomiting Hypertension Stroke Gallbladder disease Grandfather Family hx of colon cancer Myocardial infarction Father Colon cancer Cardiac disorder Kidney stones Heart trouble Myocardial infarction Degenerative disc disease Lung disease Hypertension Stroke Aunt Colon cancer Diabetes Grandmother (Maternal) Degenerative disc disease Cancer Sister Diabetes Family history of diabetes mellitus Breast cancer Cancer Hypertension Gallbladder disease Family/Other Kidney disease Brother Multiple sclerosis Uncle Myocardial infarction Grandfather (Maternal) Family history of diabetes mellitus Aunt Diabetes Aunt Diabetes Aunt Diabetes Aunt Diabetes Aunt Diabetes Other Dementia Denies family history of Ovarian cancer Prostate cancer Adverse effect of anesthesia Bleeding disorder Social History Smoking Status: Current every day smoker Tobacco Type: Cigarettes Age Started Using Tobacco: 12; packs per day: 0.5; Cigarettes Per Day: .5PPD/ADVISED NPO; Second Hand Exposure: No; Do You Dip or Chew Tobacco: No; Hx Alcohol Use: No Hx Substance Use: Yes (IN THE 70'S) Preferred Language: Citizen Of [place] Communication Ability: Effective Visual Impairment: Limited Hearing Ability: Hard of Hearing Clinical Research Assistant Required: No Beliefs That Will Affect Care: None marital status: Current Living Situation: Spouse and Family Current Living Situation Comment: AND SON current occupational status: unemployed How many Children do You have: 2 Feels Safe at Home: Yes Childhood Exposure to Second-Hand Smoke: Yes (father smoked) Diet Comment: regular caffeine: Yes during the past year weight has: increased > 10 lbs Dental Care, Regularly: Yes Physical Activity Frequency: Does not Exercise Physical Activity Frequency Comment: LIMITED BY PHYSICAL CONDITION Seatbelt Use: always Sunscreen Use: Yes Assistive Devices: Cane, Glasses and Oxygen - at Night Assistive Devices Comment: 5 L N/C HS Results & Data ([facility]) Vital Signs (Past 12 Hours) Vital Signs Temp Pulse Resp BP Pulse Ox O2 Del Method 12/01/22 10:23 Room Air 12/01/22 10:13 Room Air 12/01/22 10:06 37.0 C 86 18 103/75 95 Room Air
--- NOTE | 2022-12-01 10:40 | History & Physical Report ---
Date of Service December 01, 2022 Assessment & Plan (1) Bilateral carotid artery stenosis: Plan: We went over the risks options and benefits of intervention of carotid arteries. We went over both the open endarterectomy technique and the TCAR procedure. She is a TCAR candidate. She is elected to go ahead with the TCAR procedure on both sides. The has a history of having symptoms in 2005 involving the right hemisphere do we elected to do the right carotid first. We will then schedule the left side 2 to 3 weeks later. History of Present Illness Primary Care Provider: Gerda Johnson DO Ms Diana Carrington is a 62-year-old female with multiple medical problems. She had an ultrasound done the fall of last year which showed a severe stenosis of her right internal carotid artery. She does claim to have had a stroke in 2005 at the same time that she had a deep venous thrombosis of her lower extremity. She underwent tPA at that time with total resolution of her cerebrovascular symptoms. 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 She denies any neurological symptoms since 2005. The ultrasound at that time showed a 50% stenosis of the right carotid and no narrowing of the left side. She denies any claudication of her lower extremities. She did have an echo done last fall showed an ejection fraction of 55%. CT angiogram showed greater than 80% narrowing of both internal carotid arteries at their origins. Allergies Allergy/AdvReac Type Severity Reaction Status Date / Time bee pollen Allergy Severe Anaphylaxis Verified 12/01/22 09:48 fentanyl Allergy Severe Severe Verified 12/01/22 09:48 sedation, resp depression (only with patches) Penicillins Allergy Severe Anaphylaxis Verified 12/01/22 09:48 adhesive Allergy Unknown Blister Verified 12/01/22 09:48 (wipe some plastic tape) buprenorphine [From Suboxone] Allergy Unknown Vomiting, Verified 12/01/22 09:48 skin problems honey Allergy Unknown Hives Verified 12/01/22 09:48 pregabalin Allergy Unknown Shortness Verified 12/01/22 09:48 of breath oxcarbazepine AdvReac Severe Severe Verified 12/01/22 09:48 [From Trileptal] stomach issues sulfamethoxazole AdvReac Severe Severe Verified 12/01/22 09:48 nausea trimethoprim AdvReac Severe Severe Verified 12/01/22 09:48 nausea cephalexin AdvReac Unknown Nausea Verified 12/01/22 09:48 clindamycin AdvReac Unknown Diarrhea Verified 12/01/22 09:48 fluticasone AdvReac Unknown Severe Verified 12/01/22 09:48 thrush ketorolac AdvReac Unknown Migraine Verified 12/01/22 09:48 levofloxacin [From Levaquin] AdvReac Unknown IBS ("can Verified 12/01/22 09:48 only tolerate for 5 days") naloxone [From Suboxone] AdvReac Unknown Severe Verified 12/01/22 09:48 nausea, SKIN PROBLEMS ondansetron [From Zofran] AdvReac Unknown Migraine Verified 12/01/22 09:48 saccharin [From Sweeta] AdvReac Unknown Severe Verified 12/01/22 09:48 vomiting salmeterol AdvReac Unknown Severe Verified 12/01/22 09:48 thrush Home Medications Medication Instructions Recorded Confirmed Type Oxygen Home #1 ea 03/20/19 11/09/22 Rx clobetasol 0.05 % lotion 1 appln topical BID PRN itching 2 10/16/19 12/01/22 Rx weeks #59 mL Hospital Bed Homecare (Hospital #1 ea 11/14/19 11/09/22 Rx Bed) cholecalciferol (vitamin D3) 25 1,000 units PO QAM 06/12/20 12/01/22 History mcg (1,000 unit) capsule blood-glucose meter (SolyndraTouch #1 ea 09/18/20 11/09/22 Rx Verio Meter) doxycycline hyclate 100 mg capsule 100 mg PO QPM 06/17/21 12/01/22 History lancets 30 gauge (OneTouch Delica #200 ea 06/19/21 11/09/22 Rx Lancets) albuterol sulfate 2.5 mg/0.5 mL 2.5 mg (0.5 mL) inhalation QID PRN 07/13/21 12/01/22 Rx solution for nebulization Wheezing #30 ea guaifenesin 1,200 mg tablet, 1,200 mg PO Q12H PRN Nasal 11/11/21 12/01/22 History extended release 12 hr (Mucinex) Congestion ezetimibe 10 mg tablet (Zetia) 10 mg PO HS #30 tabs 01/11/22 12/01/22 Rx apixaban 5 mg tablet (Eliquis) 5 mg PO BID #90 tabs 02/05/22 12/01/22 Rx cyanocobalamin (vitamin B-12) 500 1,000 mcg PO Q2D #60 tabs 03/23/22 12/01/22 Rx mcg tablet albuterol sulfate 90 mcg/actuation 2 puff inhalation Q6H PRN Wheezing 04/19/22 12/01/22 Rx aerosol inhaler #18 grams duloxetine 60 mg capsule,delayed 60 mg PO BID 7 days #60 caps 06/02/22 12/01/22 Rx release (Cymbalta) nitroglycerin 0.4 mg sublingual 0.4 mg sublingual UD PRN Pain #25 07/20/22 12/01/22 Rx tablet (Nitrostat) tabs folic acid 1 mg tablet 1 mg PO QAM #90 tabs 07/22/22 12/01/22 Rx CPAP Machine #1 ea 08/02/22 11/09/22 Rx levothyroxine 200 mcg tablet 200 mcg PO QAM #90 tabs 08/03/22 12/01/22 Rx levothyroxine 50 mcg tablet 75 mcg PO QAM #135 tabs 08/03/22 12/01/22 Rx hydroxyzine pamoate 25 mg capsule 25 mg PO TID PRN Anxiety #60 caps 08/30/22 12/01/22 Rx (Vistaril) ferrous sulfate 325 mg (65 mg 325 mg PO BID #60 tabs 08/31/22 12/01/22 Rx iron) tablet magnesium oxide 400 mg PO TID #270 tabs 09/03/22 12/01/22 Rx montelukast 10 mg tablet 10 mg PO QAM #90 tabs 09/03/22 12/01/22 Rx (Singulair) metoprolol succinate 25 mg 25 mg PO BID #180 tabs 09/06/22 12/01/22 Rx tablet,extended release 24 hr gabapentin 800 mg tablet 800 mg PO UD #105 tabs 10/21/22 12/01/22 Rx clobetasol 0.05 % scalp solution 1 applic topical DAILY #50 mL 10/22/22 12/01/22 Rx mometasone 0.1 % topical cream 1 applic topical DAILY PRN 10/22/22 12/01/22 Rx allergic reaction #15 grams trazodone 100 mg tablet 300 mg PO HS #90 tabs 10/22/22 12/01/22 Rx benzonatate 200 mg capsule 200 mg PO TID PRN cough #30 caps 10/29/22 12/01/22 Rx pravastatin 40 mg tablet 40 mg PO HS #30 tabs 11/11/22 12/01/22 Rx oxycodone 10 mg tablet 10 mg PO Q12H PRN pain, severe #60 11/16/22 12/01/22 Rx tabs sucralfate 1 gram tablet (Carafate) 1 g PO BID PRN Acid Reflux #60 tabs 11/16/22 12/01/22 Rx nystatin 100,000 unit/gram topical 1 applic topical BID #30 grams 11/23/22 12/01/22 Rx powder blood sugar diagnostic #100 ea 11/24/22 Rx clotrimazole-betamethasone 1 1 applic topical UD 11/24/22 12/01/22 History %-0.05 % topical cream oxybutynin chloride 5 mg tablet 10 mg PO BID 11/24/22 12/01/22 History semaglutide 1 mg/dose (4 mg/3 mL) 1 mg subcut WK 11/24/22 12/01/22 History subcutaneous pen injector (Ozempic) buspirone 10 mg tablet 10 mg PO TID #270 tabs 11/26/22 12/01/22 Rx methocarbamol 500 mg tablet 1,000 mg PO QID 30 days #240 tabs 11/26/22 12/01/22 Rx fluticasone fur. 100 mcg-umeclid 1 inh inhalation QAM #60 ea 11/30/22 12/01/22 Rx 62.5 mcg-vilant 25 mcg inhalat.powder (Trelegy Ellipta) aspirin 81 mg capsule 81 mg PO DAILY 12/01/22 12/01/22 History clopidogrel 75 mg tablet (Plavix) 75 mg PO DAILY 12/01/22 12/01/22 History esomeprazole magnesium 40 mg 40 mg PO BID 12/01/22 12/01/22 History capsule,delayed release (Nexium) levocetirizine 5 mg tablet (Xyzal) 5 mg PO HS 12/01/22 12/01/22 History Past Med/Surg History Medical History AF (paroxysmal atrial fibrillation) Takes Eliquis NO HX CARDIOVERSION Allergic rhinitis Anemia Anxiety Carotid artery narrowing Per 08/26/22 carotid duplex= >70% stenosis to right ICA (>80% by EDV), 50-69% stenosis to left ICA, antegrade flow to right vertebral artery, >50% left subclavian artery stenosis (bi-directional flow in left vertebral artery 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) to see Dr Aiken 10/27/22 Chronic hyponatremia Chronic interstitial cystitis COPD (chronic obstructive pulmonary disease) Coronary artery disease Minor nonobstructive CAD per September 2012 cath per cardio records No hx stents or angioplasty Depression Diabetic neuropathy Diffuse myofascial pain syndrome GERD (gastroesophageal reflux disease) Well controlled and stable History of [place] (myocardial infarction) 2010 History of seizures Age 3 (in setting of fever/measles) Hx of deep venous thrombosis 3 years ago- Takes Eliquis Hx of thyroid cancer s/p thyroidectomy + XRT (one round) Hyperlipidemia Hypertension BP fluctuates Hypothyroidism (acquired) S/p thyroidectomy 2015 (final pathology negative for malignancy) Meralgia paresthetica of right side Follows with neuro Mixed hearing loss of right ear No hearing aids Morbid obesity Obesity hypoventilation syndrome Personal history of pulmonary embolism 2014- Takes Eliquis Personal history of skin cancer s/p excision from RLE Psoriatic arthritis No meds at this time- follows with rheum Severe sleep apnea 5L oxygen via N/C- (WAITING ON CPAP DEVICE) Follows with pulm TIA (transient ischemic attack) 2013 Type 2 diabetes mellitus IDDM Surgical History H/O cataract extraction R/L H/O colonoscopy with polypectomy History of appendectomy History of back surgery x5 (including fusion). 07/15/20 Grade 1 view, MAC 3, ETT 7. History of breast biopsy Left (benign) History of cardiac cath x7 (09/2012 > no stents) History of cervical spinal surgery x2 (GOOD ROM per pt) History of cystoscopy Multiple History of esophagogastroduodenoscopy (EGD) History of incision and drainage I&D lumbar spine incision w/ placement of abx beads and wound vac - NO CURRENT WOUND VAC/ANTIBIOTIC DAILY (DOXYCYCLINE) 08/11/20 Grade 1 view, MAC 3, ETT 7. History of knee replacement R/L History of placement of ear tubes R/L History of thyroidectomy, total History of tonsillectomy S/P section x2 S/P dilatation and curettage Family History Mother Diabetes Family history of diabetes mellitus Cardiac disorder Heart trouble Myocardial infarction Renal failure Family history of reaction to anesthesia nausea/vomiting Hypertension Stroke Gallbladder disease Grandfather Family hx of colon cancer Myocardial infarction Father Colon cancer Cardiac disorder Kidney stones Heart trouble Myocardial infarction Degenerative disc disease Lung disease Hypertension Stroke Aunt Colon cancer Diabetes Grandmother (Maternal) Degenerative disc disease Cancer Sister Diabetes Family history of diabetes mellitus Breast cancer Cancer Hypertension Gallbladder disease Family/Other Kidney disease Brother Multiple sclerosis Uncle Myocardial infarction Grandfather (Maternal) Family history of diabetes mellitus Aunt Diabetes Aunt Diabetes Aunt Diabetes Aunt Diabetes Aunt Diabetes Other Dementia Denies family history of Ovarian cancer Prostate cancer Adverse effect of anesthesia Bleeding disorder Social History Smoking Status: Current every day smoker Tobacco Type: Cigarettes Age Started Using Tobacco: 12; packs per day: 0.5; Cigarettes Per Day: .5PPD/ADVISED NPO; Second Hand Exposure: No; Do You Dip or Chew Tobacco: No; Hx Alcohol Use: No Hx Substance Use: Yes (IN THE 70'S) Preferred Language: Mongolian Communication Ability: Effective Visual Impairment: Limited Hearing Ability: Hard of Hearing Concert Manager Required: No Beliefs That Will Affect Care: None marital status: Current Living Situation: Spouse and Family Current Living Situation Comment: AND SON current occupational status: unemployed How many Children do You have: 2 Feels Safe at Home: Yes Childhood Exposure to Second-Hand Smoke: Yes (father smoked) Diet Comment: regular caffeine: Yes during the past year weight has: increased > 10 lbs Dental Care, Regularly: Yes Physical Activity Frequency: Does not Exercise Physical Activity Frequency Comment: LIMITED BY PHYSICAL CONDITION Seatbelt Use: always Sunscreen Use: Yes Assistive Devices: Cane, Glasses and Oxygen - at Night Assistive Devices Comment: 5 L N/C HS Review of Systems All systems reviewed & are unremarkable except as noted in HPI & below Physical Exam Physical Exam: Physical exam he is awake alert and oriented x3. She is in no apparent distress. Her blood pressure is 106 systolic on the right 98 systolic on the left. Her radials carotids are +2 bilaterally. I cannot appreciate carotid bruits. Lungs were clear. Heart had a regular rate and rhythm. Abdominal exam was benign. I cannot appreciate an aortic pulse due to the body habitus. Femoral pedal's are +2 bilaterally. Neurologic exam is intact motor and sensory function. Results & Data Vital Signs (Past 12 Hours) Vital Signs Temp Pulse Resp BP Pulse Ox O2 Del Method 12/01/22 10:23 Room Air 12/01/22 10:13 Room Air 12/01/22 10:06 37.0 C 86 18 103/75 95 Room Air
[2022-12-01] MEDS ORDERED: THROMBIN FOR SOLN 20000 UNIT KIT ONE (11:04)
[2022-12-01] MEDS ORDERED: ceFAZolin 330 MG/ML 1 GM VIAL ONE (11:04)
[2022-12-01] MEDS ORDERED: GELATIN SPONGE SZ 100 ONE (11:04)
[2022-12-01] MEDS ORDERED: ROCURONIUM BROMIDE 10 MG/ML 5 ML VIAL IV ONE (11:12)
[2022-12-01] MEDS ORDERED: GLYCOPYRROLATE 0.2 MG/ML VIAL ONE (11:12)
[2022-12-01] MEDS ORDERED: DEXAMETHASONE SOD INJ 4 MG/ML VIAL ONE (11:12)
[2022-12-01] MEDS ORDERED: HEPARIN SOD (PORCINE) 1000 UNIT/ML ONE (11:12)
[2022-12-01] MEDS ORDERED: MIDAZOLAM HCL 1 MG/ML 2ML VIAL ONE (11:12)
[2022-12-01] MEDS ORDERED: LIDOCAINE 2% MPF LOCAL 5 ML VIAL INFIL ONE (11:12)
[2022-12-01] MEDS ORDERED: PROPOFOL IV EMULSION 10 MG/ML 20 ML VIAL IV ONE (11:12)
[2022-12-01] MEDS ORDERED: fentaNYL citrate PF 100 MCG/2 ML VIAL ONE (11:12)
[2022-12-01] MEDS ORDERED: ONDANSETRON INJ 2 MG/ML 2 ML VIAL ONE (11:12)
--- NOTE | 2022-12-01 11:12 | History & Physical Bridge Note ---
Date of Service December 01, 2022 History & Physical Bridge Note I have examined the patient, reviewed the History & Physical and in the interval since the performance of the History & Physical I have noted the following changes of clinical significance: no changes noted
[2022-12-01] MEDS ORDERED: PHENYLEPHRINE HCL 25 MG/250 ML NSS IV ONE (11:43)
[2022-12-01] MEDS ORDERED: fentaNYL citrate PF 100 MCG/2 ML VIAL IV PRN (12:04)
[2022-12-01] MEDS ORDERED: PROMETHAZINE HCL 6.25 MG in SODIUM CHLORIDE 0.9% 50 ML IV PRN (12:04)
[2022-12-01] MEDS ORDERED: ATROPINE SULFATE 0.1 MG/ML 10ML SYR IV PRN (12:04)
[2022-12-01] MEDS ORDERED: VISIPAQUE IV ONE (13:55)
[2022-12-01] MEDS ORDERED: SUGAMMADEX SODIUM 200 MG/2 ML VIAL IV ONE (14:07)
[2022-12-01] MEDS ORDERED: BUPIVACAINE/EPINEPHRINE 0.5% MPF 1:200,000 30 ML VIAL ONE (14:09)
[2022-12-01] MEDS ORDERED: PROTAMINE SULFATE 10 MG/ML 5 ML VIAL IV ONE (14:31)
--- NOTE | 2022-12-01 14:31 | Procedure Note ---
Angiogram Post Procedure Fluoroscopy Time (minutes): 2.9 Radiation (mGy): 62 Contrast: 15 Post Operative Report Pre & Post Diagnosis Operation Date: 12/01/22 13:00 Pre-Op Diagnosis: Bilateral Internal Carotid Artery Stenosis Post-Op Diagnosis: Bilateral Internal Carotid Artery Stenosis I identified the patient and participated in the time-out.: Yes Procedure Operation Date: 12/01/22 13:00 Actual Procedures p Right Transcarotid Artery Revascularization, Ultrasound Localization of Femoral Vein(Right) - Celso Aiken MD Surgeon Celso Aiken MD Brush Cleaner Deven,PAC Estimated Blood Loss 20 Findings Consistent with Post-Op Diagnosis Specimens none Anesthesia Type General Complications none Disposition Accompanied Patient To Recovery: No Disposition: Recovery Room Indications This is a 62-year-old female who was found to have severe bilateral internal carotid artery stenoses. Endarterectomy versus TCAR were discussed with the patient. Due to her cervical spine problems TCAR was more favorable. She is agreeable to the TCAR procedure. I have discussed the risks options and benefits of the procedure with the patient. The patient understands the risks options and benefits and agrees to the procedure. Description of Procedure The patient was taken to the operating room and placed in supine position. After general anesthesia was accomplished the groins and right side of the neck and chest were prepped and draped in a sterile manner. A timeout was performed and the patient was identified. A transverse incision was made just above the clavicle between the heads of the sternocleidomastoid. This was carried down to where the common carotid artery was identified. It was isolated and slung with an umbilical tape. It was given 8000units of heparin at that time. Ultrasound was then used to localize the left common femoral vein. The vein was patent and compressed easily. Under ultrasound guidance the left common femoral vein was punctured and the venous sheath was inserted. This was aspirated and flushed with heparinized saline. An ACT at that time was 298. Using micropuncture technique the common carotid artery was punctured. The micro sheath was inserted to 3 cm. Injection was then done showing the bifurcation. There was a significant lesion seen at the origin of the internal carotid artery on the right side. We then inserted the J-wire and keep it short of the bifurcation of the carotid artery. The TCAR sheath was inserted. Once it was in place and held against the artery it was sutured to the chest wall and the incision edge. We then flushed the tubing appropriately. The venous return tubing was clamped onto the TCAR sheath. It was flushed through and then attached to the venous inflow sheath in the left groin. The sheath was checked for flow. We then inserted a 4 x 3 balloon backloaded on the wire. The wire was passed through the lesion into the petrous portion of the internal carotid. The 4 balloon was then advanced to the lesion. The lesion was then predilated with the 4 mm balloon. The balloon was removed. We then inserted the 9 x 40 stent. This was deployed across the lesion without difficulty. The catheter was removed. The carotid was allowed to go 2 minutes with flow reversal. Completion angiogram was done at that time which showed a no residual stenosis. A that point the common carotid artery was unclamped. The venous return tubing was clamped and removed from the TCAR sheath. The blood was allowed to flow back into the venous system. Once this was completed the sheath was pulled from the groin and pressure was applied. The TCAR sheath was then removed and the 5-0 Prolene suture securely tied. Hemostasis was noted of the puncture site. Wound was irrigated with saline solution. Adequate hemostasis was obtained of the wound. Once this was noted the wound was closed in usual fashion using a 3-0 Vicryl suture for the subcutaneous layer and a 4-0 subcuticular Vicryl suture for the skin edges. Dermabond was used for dressing.The patient left the operation room in satisfactory condition and tolerated the procedure well. All needle and sponge counts were correct at the end of the procedure. Theresa Patterson Pac assisted due to lack of resident availability and was necessary for positioning, draping, retraction, wound closure deep layers, subcutaneous tissue, and skin closure and was necessary for assisting with the case. I attest to the content of the Intraoperative Record and any orders documented therein. Any exceptions are noted below.
--- NOTE | 2022-12-01 15:00 | Anesthesiology Progress Note ---
Date of Service December 01, 2022 Anesthesia Post Procedure Vital Signs Vital Signs: Temp Pulse Pulse Resp BP BP Pulse Ox 12/01/22 14:48 36.4 C L 87 13 164/88 H 100 12/01/22 10:23 12/01/22 10:13 12/01/22 10:06 37.0 C 86 18 103/75 130/60 95 O2 Del Method O2 Flow Rate 12/01/22 14:48 Oxymask 4 12/01/22 10:23 Room Air 12/01/22 10:13 Room Air 12/01/22 10:06 Room Air Transfer of Care Handoff Completed per policy Notes Mental Status: alert / awake / arousable Patient Amnestic to Procedure: Yes Nausea / Vomiting: adequately controlled Pain: adequately controlled Airway Patency, RR, SpO2: stable & adequate BP & HR: stable & adequate Hydration State: stable & adequate Anesthetic Complications: no major complications apparent
[2022-12-01] MEDS ORDERED: CLOBETASOL 0.05% TOP PRN (15:52)
[2022-12-01] MEDS ORDERED: NITROGLYCERIN SL 0.4 MG/TAB TAB SL PRN (15:52)
[2022-12-01] MEDS ORDERED: SUCRALFATE 1 GM TAB PO PRN (15:52)
[2022-12-01] MEDS ORDERED: ALBUTEROL HFA 8 GM INHALER INH PRN (15:52)
[2022-12-01] MEDS ORDERED: MOMETASONE FUROATE 0.1% CR 15 GM TUBE EXT PRN (15:52)
[2022-12-01] MEDS ORDERED: LACTATED RINGER'S 1,000 ML IV SCH (15:52)
[2022-12-01] MEDS ORDERED: guaiFENesin 600 MG TABCR PO PRN (15:52)
[2022-12-01] MEDS ORDERED: VANCOMYCIN CONSULT ACTIVE PRN (15:52)
[2022-12-01] MEDS ORDERED: hydrOXYzine HCl 25 MG TAB PO PRN (15:52)
[2022-12-01] MEDS: oxyCODONE HCL IR 5 MG TAB (IMMEDIATE RELEASE) PO PRN (16:25)
--- NOTE | 2022-12-01 16:50 | Critical Care Consultation ---
Date of Consultation December 01, 2022 Assessment & Plan (1) Bilateral carotid artery stenosis: (2) On home oxygen therapy: Plan Impression: 62-year-old female found to have severe bilateral carotid stenosis status post TCAR. She appears to be doing well clinically. Recommendations: 1. Status post TCAR: Continue management per vascular surgery. 2. Hypertension: Continue outpatient medications. Blood pressure goals per vascular surgery. 3. History of COPD: PFTs were preserved previously. She was using Trelegy on an as-needed basis 4. History of severe sleep disordered breathing: Nocturnal CPAP recommended if she can tolerate it with her surgical incisions. 5. Glycemic control per protocol. 6. Mild anemia was noted in October 2022. Repeat labs are currently pending. We will continue to follow in the ICU for overnight per protocol. Ultimate disposition per vascular surgery. Thanks for the opportunity of assisting in the care of this patient. Feel free to contact us if we can be of additional assistance. History of Present Illness Attending Physician: Celso Aiken MD History of Present Illness Asked by vascular surgery to assist in evaluation management this patient status post transcarotid revascularization. Patient seen in the ICU. She is awake alert conversant and complaining only of some pain at the arterial line site. The patient is a 62-year-old female with morbid obesity. She was found to have severe bilateral internal carotid artery stenosis. She was agreeable to undergo TCAR and was taken to the OR today where the above procedure was completed without difficulty. She is returned to the ICU for monitoring. Her arterial line is currently nonfunctional. Patient denies any neurological complaints. No weakness numbness or tingling. She is not having any issues swallowing. Blood pressures been adequate. She is complaining of some pain at the surgical site but otherwise is doing well clin ically.. Allergies Allergy/AdvReac Type Severity Reaction Status Date / Time bee pollen Allergy Severe Anaphylaxis Verified 12/01/22 09:48 fentanyl Allergy Severe Severe Verified 12/01/22 09:48 sedation, resp depression (only with patches) Penicillins Allergy Severe Anaphylaxis Verified 12/01/22 09:48 adhesive Allergy Unknown Blister Verified 12/01/22 09:48 (wipe some plastic tape) buprenorphine [From Suboxone] Allergy Unknown Vomiting, Verified 12/01/22 09:48 skin problems honey Allergy Unknown Hives Verified 12/01/22 09:48 pregabalin Allergy Unknown Shortness Verified 12/01/22 09:48 of breath oxcarbazepine AdvReac Severe Severe Verified 12/01/22 09:48 [From Trileptal] stomach issues sulfamethoxazole AdvReac Severe Severe Verified 12/01/22 09:48 nausea trimethoprim AdvReac Severe Severe Verified 12/01/22 09:48 nausea cephalexin AdvReac Unknown Nausea Verified 12/01/22 09:48 clindamycin AdvReac Unknown Diarrhea Verified 12/01/22 09:48 fluticasone AdvReac Unknown Severe Verified 12/01/22 09:48 thrush ketorolac AdvReac Unknown Migraine Verified 12/01/22 09:48 levofloxacin [From Levaquin] AdvReac Unknown IBS ("can Verified 12/01/22 09:48 only tolerate for 5 days") naloxone [From Suboxone] AdvReac Unknown Severe Verified 12/01/22 09:48 nausea, SKIN PROBLEMS ondansetron [From Zofran] AdvReac Unknown Migraine Verified 12/01/22 09:48 saccharin [From Sweeta] AdvReac Unknown Severe Verified 12/01/22 09:48 vomiting salmeterol AdvReac Unknown Severe Verified 12/01/22 09:48 thrush Home Medications Medication Instructions Recorded Confirmed Type Oxygen Home #1 ea 03/20/19 11/09/22 Rx clobetasol 0.05 % lotion 1 appln topical BID PRN itching 2 10/16/19 12/01/22 Rx weeks #59 mL Hospital Bed [facility] (Hospital #1 ea 11/14/19 11/09/22 Rx Bed) cholecalciferol (vitamin D3) 25 1,000 units PO QAM 06/12/20 12/01/22 History mcg (1,000 unit) capsule blood-glucose meter (LeadSiftTouch #1 ea 09/18/20 11/09/22 Rx Verio Meter) doxycycline hyclate 100 mg capsule 100 mg PO QPM 06/17/21 12/01/22 History lancets 30 gauge (OneTouch Delica #200 ea 06/19/21 11/09/22 Rx Lancets) albuterol sulfate 2.5 mg/0.5 mL 2.5 mg (0.5 mL) inhalation QID PRN 07/13/21 12/01/22 Rx solution for nebulization Wheezing #30 ea guaifenesin 1,200 mg tablet, 1,200 mg PO Q12H PRN Nasal 11/11/21 12/01/22 History extended release 12 hr (Mucinex) Congestion ezetimibe 10 mg tablet (Zetia) 10 mg PO HS #30 tabs 01/11/22 12/01/22 Rx apixaban 5 mg tablet (Eliquis) 5 mg PO BID #90 tabs 02/05/22 12/01/22 Rx cyanocobalamin (vitamin B-12) 500 1,000 mcg PO Q2D #60 tabs 03/23/22 12/01/22 Rx mcg tablet albuterol sulfate 90 mcg/actuation 2 puff inhalation Q6H PRN Wheezing 04/19/22 12/01/22 Rx aerosol inhaler #18 grams duloxetine 60 mg capsule,delayed 60 mg PO BID 7 days #60 caps 06/02/22 12/01/22 Rx release (Cymbalta) nitroglycerin 0.4 mg sublingual 0.4 mg sublingual UD PRN Pain #25 07/20/22 12/01/22 Rx tablet (Nitrostat) tabs folic acid 1 mg tablet 1 mg PO QAM #90 tabs 07/22/22 12/01/22 Rx CPAP Machine #1 ea 08/02/22 11/09/22 Rx levothyroxine 200 mcg tablet 200 mcg PO QAM #90 tabs 08/03/22 12/01/22 Rx levothyroxine 50 mcg tablet 75 mcg PO QAM #135 tabs 08/03/22 12/01/22 Rx hydroxyzine pamoate 25 mg capsule 25 mg PO TID PRN Anxiety #60 caps 08/30/22 12/01/22 Rx (Vistaril) ferrous sulfate 325 mg (65 mg 325 mg PO BID #60 tabs 08/31/22 12/01/22 Rx iron) tablet magnesium oxide 400 mg PO TID #270 tabs 09/03/22 12/01/22 Rx montelukast 10 mg tablet 10 mg PO QAM #90 tabs 09/03/22 12/01/22 Rx (Singulair) metoprolol succinate 25 mg 25 mg PO BID #180 tabs 09/06/22 12/01/22 Rx tablet,extended release 24 hr gabapentin 800 mg tablet 800 mg PO UD #105 tabs 10/21/22 12/01/22 Rx clobetasol 0.05 % scalp solution 1 applic topical DAILY #50 mL 10/22/22 12/01/22 Rx mometasone 0.1 % topical cream 1 applic topical DAILY PRN 10/22/22 12/01/22 Rx allergic reaction #15 grams trazodone 100 mg tablet 300 mg PO HS #90 tabs 10/22/22 12/01/22 Rx benzonatate 200 mg capsule 200 mg PO TID PRN cough #30 caps 10/29/22 12/01/22 Rx pravastatin 40 mg tablet 40 mg PO HS #30 tabs 11/11/22 12/01/22 Rx oxycodone 10 mg tablet 10 mg PO Q12H PRN pain, severe #60 11/16/22 12/01/22 Rx tabs sucralfate 1 gram tablet (Carafate) 1 g PO BID PRN Acid Reflux #60 tabs 11/16/22 12/01/22 Rx nystatin 100,000 unit/gram topical 1 applic topical BID #30 grams 11/23/22 12/01/22 Rx powder blood sugar diagnostic #100 ea 11/24/22 Rx clotrimazole-betamethasone 1 1 applic topical UD 11/24/22 12/01/22 History %-0.05 % topical cream oxybutynin chloride 5 mg tablet 10 mg PO BID 11/24/22 12/01/22 History semaglutide 1 mg/dose (4 mg/3 mL) 1 mg subcut WK 11/24/22 12/01/22 History subcutaneous pen injector (Ozempic) buspirone 10 mg tablet 10 mg PO TID #270 tabs 11/26/22 12/01/22 Rx methocarbamol 500 mg tablet 1,000 mg PO QID 30 days #240 tabs 11/26/22 12/01/22 Rx fluticasone fur. 100 mcg-umeclid 1 inh inhalation QAM #60 ea 11/30/22 12/01/22 Rx 62.5 mcg-vilant 25 mcg inhalat.powder (Trelegy Ellipta) aspirin 81 mg capsule 81 mg PO DAILY 12/01/22 12/01/22 History clopidogrel 75 mg tablet (Plavix) 75 mg PO DAILY 12/01/22 12/01/22 History esomeprazole magnesium 40 mg 40 mg PO BID 12/01/22 12/01/22 History capsule,delayed release (Nexium) levocetirizine 5 mg tablet (Xyzal) 5 mg PO HS 12/01/22 12/01/22 History Patient History Medical History AF (paroxysmal atrial fibrillation) Takes Eliquis NO HX CARDIOVERSION Allergic rhinitis Anemia Anxiety Carotid artery narrowing Per 08/26/22 carotid duplex= >70% stenosis to right ICA (>80% by EDV), 50-69% stenosis to left ICA, antegrade flow to right vertebral artery, >50% left subclavian artery stenosis (bi-directional flow in left vertebral artery 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) to see Dr Aiken 10/27/22 Chronic hyponatremia Chronic interstitial cystitis COPD (chronic obstructive pulmonary disease) Coronary artery disease Minor nonobstructive CAD per September 2012 cath per cardio records No hx stents or angioplasty Depression Diabetic neuropathy Diffuse myofascial pain syndrome GERD (gastroesophageal reflux disease) Well controlled and stable History of AL (myocardial infarction) 2010 History of seizures Age 3 (in setting of fever/measles) Hx of deep venous thrombosis 3 years ago- Takes Eliquis Hx of thyroid cancer s/p thyroidectomy + XRT (one round) Hyperlipidemia Hypertension BP fluctuates Hypothyroidism (acquired) S/p thyroidectomy 2015 (final pathology negative for malignancy) Meralgia paresthetica of right side Follows with neuro Mixed hearing loss of right ear No hearing aids Morbid obesity Obesity hypoventilation syndrome Personal history of pulmonary embolism 2014- Takes Eliquis Personal history of skin cancer s/p excision from RLE Psoriatic arthritis No meds at this time- follows with rheum Severe sleep apnea 5L oxygen via N/C- (WAITING ON CPAP DEVICE) Follows with pulm TIA (transient ischemic attack) 2013 Type 2 diabetes mellitus IDDM Surgical History H/O cataract extraction R/L H/O colonoscopy with polypectomy History of appendectomy History of back surgery x5 (including fusion). 07/15/20 Grade 1 view, MAC 3, ETT 7. History of breast biopsy Left (benign) History of cardiac cath x7 (09/2012 > no stents) History of cervical spinal surgery x2 (GOOD ROM per pt) History of cystoscopy Multiple History of esophagogastroduodenoscopy (EGD) History of incision and drainage I&D lumbar spine incision w/ placement of abx beads and wound vac - NO CURRENT WOUND VAC/ANTIBIOTIC DAILY (DOXYCYCLINE) 08/11/20 Grade 1 view, MAC 3, ETT 7. History of knee replacement R/L History of placement of ear tubes R/L History of thyroidectomy, total History of tonsillectomy S/P section x2 S/P dilatation and curettage Family History Mother Diabetes Family history of diabetes mellitus Cardiac disorder Heart trouble Myocardial infarction Renal failure Family history of reaction to anesthesia nausea/vomiting Hypertension Stroke Gallbladder disease Grandfather Family hx of colon cancer Myocardial infarction Father Colon cancer Cardiac disorder Kidney stones Heart trouble Myocardial infarction Degenerative disc disease Lung disease Hypertension Stroke Aunt Colon cancer Diabetes Grandmother (Maternal) Degenerative disc disease Cancer Sister Diabetes Family history of diabetes mellitus Breast cancer Cancer Hypertension Gallbladder disease Family/Other Kidney disease Brother Multiple sclerosis Uncle Myocardial infarction Grandfather (Maternal) Family history of diabetes mellitus Aunt Diabetes Aunt Diabetes Aunt Diabetes Aunt Diabetes Aunt Diabetes Other Dementia Denies family history of Ovarian cancer Prostate cancer Adverse effect of anesthesia Bleeding disorder Social History Smoking Status: Current every day smoker Tobacco Type: Cigarettes Age Started Using Tobacco: 12; packs per day: 0.5; Cigarettes Per Day: .5PPD/ADVISED NPO; Second Hand Exposure: No; Do You Dip or Chew Tobacco: No; Hx Alcohol Use: No Hx Substance Use: Yes (IN THE 70'S) Preferred Language: Faroese Communication Ability: Effective Visual Impairment: Limited Hearing Ability: Hard of Hearing Video 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 Required: No Beliefs That Will Affect Care: None marital status: Current Living Situation: Spouse and Family Current Living Situation Comment: AND SON current occupational status: unemployed How many Children do You have: 2 Feels Safe at Home: Yes Childhood Exposure to Second-Hand Smoke: Yes (father smoked) Diet Comment: regular caffeine: Yes during the past year weight has: increased > 10 lbs Dental Care, Regularly: Yes Physical Activity Frequency: Does not Exercise Physical Activity Frequency Comment: LIMITED BY PHYSICAL CONDITION Seatbelt Use: always Sunscreen Use: Yes Assistive Devices: Cane, Glasses and Oxygen - at Night Assistive Devices Comment: 5 L N/C HS Review of Systems Review of Systems: All systems reviewed & are unremarkable except as noted in Subjective Physical Exam Constitutional: well developed, well nourished and + obese; no acute distress Neck: normal visual inspection Respiratory: normal respiratory effort; no respiratory distress Auscultation: lungs clear to auscultation bilaterally diminished in bases Cardiovascular: Rate/Rhythm: regular rate and regular rhythm Heart Sounds: normal S1 and normal S2 Extremities: no edema Chest (Breasts): Additional Comments: Dressing in place over the lower right anterior chest. Some ecchymoses noted. No evidence of hematoma formation Psychiatric: A+Ox3, euthymic affect Lymphatic: no cervical lymphadenopathy Results & Data Results & Data Vital Signs (Past 12 Hours) Vital Signs Temp Pulse Pulse Resp BP BP Pulse Ox 12/01/22 15:20 36.4 C L 85 16 121/59 L 93 12/01/22 15:10 36.3 C L 88 17 123/57 L 94 12/01/22 15:00 36.4 C L 85 13 123/63 100 12/01/22 14:50 36.4 C L 84 14 139/63 100 12/01/22 14:40 36.4 C L 84 16 143/66 H 100 12/01/22 14:34 36.4 C L 87 13 164/88 H 100 12/01/22 10:23 12/01/22 10:13 12/01/22 10:06 37.0 C 86 18 103/75 130/60 95 O2 Del Method O2 Flow Rate 12/01/22 15:20 Nasal Cannula 3 12/01/22 15:10 Nasal Cannula 3 12/01/22 15:00 Oxymask 4 12/01/22 14:50 Oxymask 4 12/01/22 14:40 Oxymask 4 12/01/22 14:34 Oxymask 4 12/01/22 10:23 Room Air 12/01/22 10:13 Room Air 12/01/22 10:06 Room Air Critical Care Results & Data Vital Signs (Past 12 Hours) Vital Signs Temp Pulse Pulse Resp BP BP Pulse Ox 12/01/22 15:20 36.4 C L 85 16 121/59 L 93 03/15/23 15:10 36.3 C L 88 17 123/57 L 94 12/01/22 15:00 36.4 C L 85 13 123/63 100 12/01/22 14:50 36.4 C L 84 14 139/63 100 12/01/22 14:40 36.4 C L 84 16 143/66 H 100 12/01/22 14:34 36.4 C L 87 13 164/88 H 100 12/01/22 10:23 12/01/22 10:13 12/01/22 10:06 37.0 C 86 18 103/75 130/60 95 O2 Del Method O2 Flow Rate 12/01/22 15:20 Nasal Cannula 3 12/01/22 15:10 Nasal Cannula 3 12/01/22 15:00 Oxymask 4 12/01/22 14:50 Oxymask 4 12/01/22 14:40 Oxymask 4 12/01/22 14:34 Oxymask 4 12/01/22 10:23 Room Air 12/01/22 10:13 Room Air 12/01/22 10:06 Room Air Lab & Micro Results (Past 24 Hours) No Data to Display No Data to Display No Data to Display I & O Totals 24 Hours 11/30/22 12/01/22 12/02/22 06:59 06:59 06:59 Intake Total 2535 / 2535 Output Total 30 / 30 Balance 2505 / 2505 Cumulative 11/16/22 14:07 thru 12/01/22 15:20 Intake Total 2535 Output Total 30 Balance 2505 RT Ventilator Mngmt (Last Documented) Ventilator Ordered Settings Respiratory Rate 16 12/01/22 15:20 Ventilator - PT Measurements Respiratory Rate 16 Coding Level of Care Code 62517 IN/OBS CONSULT LVL 4,60M Diagnoses Bilateral carotid artery stenosis I65.23 On home oxygen therapy Z99.81
[2022-12-01] MEDS: METHOCARBAMOL 500 MG TABLET PO SCH ×2 (17:04→21:02)
[2022-12-01] MEDS: GABAPENTIN 800 MG TAB PO SCH ×2 (17:06→21:03)
[2022-12-01] MEDS: OXYBUTYNIN CHLORIDE 5 MG TAB PO SCH (21:00)
[2022-12-01] MEDS: MAGNESIUM OXIDE 400 MG TAB PO SCH (21:00)
[2022-12-01] MEDS: METOPROLOL SUCC 25MG EXT REL TAB PO SCH (21:00)
[2022-12-01] MEDS: APIXABAN 5 MG TABLET PO SCH (21:01)
[2022-12-01] MEDS: busPIRone 5 MG TAB PO SCH (21:01)
[2022-12-01] MEDS: EZETIMIBE 10 MG TABLET PO SCH (21:01)
[2022-12-01] MEDS: FERROUS SULFATE 325 MG TAB PO SCH (21:01)
[2022-12-01] MEDS: DULoxetine HCL 60 MG CAP PO SCH (21:02)
[2022-12-01] MEDS: DOXYCYCLINE HYCLATE 100 MG CAP PO SCH (21:02)
[2022-12-01] MEDS: traZODone HCL 100 MG TAB PO SCH (21:02)
[2022-12-01] MEDS: CETIRIZINE HCL 10 MG TABLET PO SCH (21:04)
[2022-12-01] MEDS: PANTOprazole 40 MG TAB PO SCH (21:04)
[2022-12-01] MEDS: CLOTRIMAZOLE/BETAMETHASONE CR 15 GM TUBE EXT SCH (21:05)
[2022-12-01] MEDS: PRAVASTATIN SOD 40 MG TAB PO SCH (21:06)
[2022-12-01] MEDS: NYSTATIN POWDER 15GM BTL EXT SCH (21:06)
[2022-12-01] MEDS: ACETAMINOPHEN 325 MG TAB PO PRN (21:51)
[2022-12-01] MEDS: VANCOMYCIN HCL 1,750 MG in SODIUM CHLORIDE 0.9% 500 ML IV SCH (22:16)
[2022-12-02] MEDS: CLOBETASOL~ORDER AWAITING ACTION SCH ×3 (00:57→14:30)
[2022-12-02] MEDS: oxyCODONE HCL IR 5 MG TAB (IMMEDIATE RELEASE) PO PRN ×2 (05:19→12:28)
[2022-12-02] MEDS: LEVOTHYROXINE SODIUM 200 MCG TABLET PO SCH (05:20)
[2022-12-02] MEDS: LEVOTHYROXINE SODIUM 75 MCG TABLET PO SCH (05:20)
[2022-12-02] MEDS: GABAPENTIN 800 MG TAB PO SCH ×3 (05:20→20:18)
[2022-12-02] MEDS: NYSTATIN POWDER 15GM BTL EXT SCH ×2 (08:14→20:22)
[2022-12-02] MEDS: FLUTICASONE FUROATE 100MCG 14 PUFFS/INHALER INH SCH (08:15)
[2022-12-02] MEDS: UMECLIDINIUM/VILANTEROL 62.5/25MCG 7 PUFFS/INHALER INH SCH (08:15)
[2022-12-02] MEDS: MAGNESIUM OXIDE 400 MG TAB PO SCH ×3 (08:16→20:21)
[2022-12-02] MEDS: METOPROLOL SUCC 25MG EXT REL TAB PO SCH ×2 (08:16→20:20)
[2022-12-02] MEDS: OXYBUTYNIN CHLORIDE 5 MG TAB PO SCH ×2 (08:16→20:20)
[2022-12-02] MEDS: APIXABAN 5 MG TABLET PO SCH (08:17)
[2022-12-02] MEDS: ASPIRIN 81 MG ECTAB PO SCH (08:17)
[2022-12-02] MEDS: DULoxetine HCL 60 MG CAP PO SCH ×2 (08:17→20:18)
[2022-12-02] MEDS: busPIRone 5 MG TAB PO SCH ×3 (08:17→20:18)
[2022-12-02] MEDS: MONTELUKAST SODIUM 10 MG TABLET PO SCH (08:17)
[2022-12-02] MEDS: METHOCARBAMOL 500 MG TABLET PO SCH ×4 (08:17→20:21)
[2022-12-02] MEDS: guaiFENesin 600 MG TABCR PO SCH ×2 (08:17→20:22)
[2022-12-02] MEDS: FERROUS SULFATE 325 MG TAB PO SCH ×2 (08:17→20:21)
[2022-12-02] MEDS: FOLIC ACID 1 MG TAB PO SCH (08:17)
[2022-12-02] MEDS: PANTOprazole 40 MG TAB PO SCH ×2 (08:17→20:20)
[2022-12-02] MEDS: CLOPIDOGREL BISULFATE 75 MG TAB PO SCH (08:18)
[2022-12-02] MEDS: CHOLECALCIFEROL 1,000 UNITS 25 MCG TAB PO SCH (08:18)
[2022-12-02] MEDS ORDERED: CYANOCOBALAMIN (B-12) 500 MCG TABLET PO SCH (09:00)
[2022-12-02] MEDS ORDERED: NON-FORMULARY MEDICATION (Fluticasone-Umeclidin-Vilanter [Trelegy Ellipta] 100-62.5-25 mcg INH SCH (09:00)
[2022-12-02] MEDS: VANCOMYCIN HCL 1,750 MG in SODIUM CHLORIDE 0.9% 500 ML IV SCH (09:30)
--- NOTE | 2022-12-02 10:13 | Critical Care Progress Note ---
Date of Service December 02, 2022 Assessment & Plan (1) Bilateral carotid artery stenosis: (2) On home oxygen therapy: Plan Impression: 62-year-old female found to have severe bilateral carotid stenosis status post TCAR. She appears to be doing well clinically postop day 1. Recommendations: 1. Status post TCAR: Continue management per vascular surgery. 2. Hypertension: Continue outpatient medications. Blood pressure goals per vascular surgery. 3. History of COPD: Incruse and Arnuity. Patient can transition back to her home trilogy when she leaves the hospital. 4. History of severe sleep disordered breathing: She was unable to tolerate PAP last night due to pain issues. Recommended reinstitution of nocturnal positive airway pressure as soon as clinically feasible 5. Glycemic control per protocol. 6. Mild anemia. Stable. No evidence of acute blood loss. Outpatient evaluation as needed. Critical care issues have resolved. Disposition per vascular surgery. Critical care will sign off. Feel free to contact us with additional questions or concerns Admission and Anticipated Discharge Date Admission Date: December 01, 2022 Subjective Patient seen and examined. EMR reviewed. She continues to have some pain at her surgical sites. There was some oozing at her femoral site earlier today which was treated with reinforcing the dressing. She is tolerating a diet. Her blood pressures have been acceptable. No new neurological symptoms. Review of Systems Review of Systems: All systems reviewed & are unremarkable except as noted in Subjective Physical Exam Constitutional: well developed, well nourished and + obese; no acute distress Neck: normal visual inspection Respiratory: normal respiratory effort; no respiratory distress Auscultation: lungs clear to auscultation bilaterally Cardiovascular: Rate/Rhythm: regular rate and regular rhythm Heart Sounds: normal S1 and normal S2 Extremities: no edema Psychiatric: A+Ox3, euthymic affect Lymphatic: no cervical lymphadenopathy Results & Data Results & Data Vital Signs (Past 12 Hours) Vital Signs Pulse Resp BP Pulse Ox O2 Del Method O2 Flow Rate 12/02/22 09:00 67 20 106/42 L 94 12/02/22 08:24 68 24 130/61 96 Room Air 12/02/22 07:00 70 24 128/64 98 Nasal Cannula 3 12/02/22 08:00 Room Air 12/02/22 08:00 68 12/02/22 06:00 70 20 100 12/02/22 06:00 136/58 L 12/02/22 04:00 68 14 100 12/02/22 04:00 121/56 L 12/02/22 03:00 66 14 100 12/02/22 03:00 121/71 12/02/22 02:00 70 13 100 12/02/22 02:00 130/55 L 12/02/22 01:00 74 15 98 12/02/22 01:00 119/45 L 12/02/22 00:00 73 15 99 12/02/22 00:00 123/54 L 12/01/22 23:00 76 14 98 12/01/22 23:00 146/67 H 12/02/22 00:00 72 Critical Care Results & Data Vital Signs (Past 12 Hours) Vital Signs Pulse Resp BP Pulse Ox O2 Del Method O2 Flow Rate 12/02/22 09:00 67 20 106/42 L 94 12/02/22 08:24 68 24 130/61 96 Room Air 12/02/22 07:00 70 24 128/64 98 Nasal Cannula 3 12/02/22 08:00 Room Air 12/02/22 08:00 68 12/02/22 06:00 70 20 100 12/02/22 06:00 136/58 L 12/02/22 04:00 68 14 100 12/02/22 04:00 121/56 L 12/02/22 03:00 66 14 100 12/02/22 03:00 121/71 12/02/22 02:00 70 13 100 12/02/22 02:00 130/55 L 12/02/22 01:00 74 15 98 12/02/22 01:00 119/45 L 12/02/22 00:00 73 15 99 12/02/22 00:00 123/54 L 12/01/22 23:00 76 14 98 12/01/22 23:00 146/67 H 12/02/22 00:00 72 Lab & Micro Results (Past 24 Hours) No Data to Display No Data to Display No Data to Display I & O Totals 24 Hours 12/01/22 12/02/22 12/03/22 06:59 06:59 06:59 Intake Total 4886.25 / 4886.25 400 / 400 Output Total 30 / 30 0 / 0 Balance 4856.25 / 4856.25 400 / 400 Cumulative 11/16/22 14:07 thru 12/02/22 08:00 Intake Total 5286.25 Output Total 30 Balance 5256.25 RT Ventilator Mngmt (Last Documented) Ventilator Ordered Settings Respiratory Rate 20 12/02/22 09:00 Ventilator - PT Measurements Respiratory Rate 20 Coding Level of Care Code 71770 SUB INP/OBS CARE 2/35MIN Diagnoses Bilateral carotid artery stenosis I65.23 On home oxygen therapy Z99.81
--- NOTE | 2022-12-02 12:44 | Surgery Progress Note ---
Date of Service December 02, 2022 Assessment & Plan (1) Internal carotid artery stent present: Plan: Patient doing well post tcar. Will transfer to [facility] and observe for another 24 hours due to wound drainage. Most likely it is just draining of post op hematoma of wound. Admission and Anticipated Discharge Date Admission Date: December 01, 2022 Subjective Patient denies focal deficits. Had drainage from incision and pucture site. Physical Exam Constitutional: WD/WN, vitals as above Respiratory: normal respiratory effort; no respiratory distress Cardiovascular: Rate/Rhythm: regular rate and regular rhythm Musculoskeletal: Extremities: extremities normal to inspection and strength 5/5 throughout Skin: + incision (serosanguinous drainage from wound and puncture site) Neurologic: CN's II-XI intact bilaterally and moves all extremities Psychiatric: Orientation: alert and oriented x 3 Results & Data Vital Signs (Past 12 Hours) Vital Signs Pulse Resp BP Pulse Ox O2 Del Method O2 Flow Rate 12/02/22 11:19 66 20 123/55 L 92 12/02/22 10:00 66 13 119/43 L 95 12/02/22 09:00 67 20 106/42 L 94 12/02/22 08:24 68 24 130/61 96 Room Air 12/02/22 07:00 70 24 128/64 98 Nasal Cannula 3 12/02/22 08:00 Room Air 12/02/22 08:00 68 12/02/22 06:00 70 20 100 12/02/22 06:00 136/58 L 12/02/22 04:00 68 14 100 12/02/22 04:00 121/56 L 12/02/22 03:00 66 14 100 12/02/22 03:00 121/71 12/02/22 02:00 70 13 100 12/02/22 02:00 130/55 L 12/02/22 01:00 74 15 98 12/02/22 01:00 119/45 L
[2022-12-02] MEDS ORDERED: SODIUM CHLORIDE 0.65% NA SOLN 45 ML (OCEAN) ONE (14:08)
[2022-12-02] MEDS: ACETAMINOPHEN 325 MG TAB PO PRN ×2 (16:48→20:31)
[2022-12-02] MEDS ORDERED: Nursing to Pharmacy Communication SCH (17:00)
[2022-12-02] MEDS: BENZONATATE 100 MG CAPSULE PO PRN (17:58)
[2022-12-02] MEDS: ALBUTEROL 0.5% NEB SOLN 2.5 MG/0.5 ML VIAL INH PRN ×2 (18:01→22:28)
[2022-12-02] MEDS: PRAVASTATIN SOD 40 MG TAB PO SCH (20:17)
[2022-12-02] MEDS: CETIRIZINE HCL 10 MG TABLET PO SCH (20:17)
[2022-12-02] MEDS: traZODone HCL 100 MG TAB PO SCH (20:17)
[2022-12-02] MEDS: DOXYCYCLINE HYCLATE 100 MG CAP PO SCH (20:18)
[2022-12-02] MEDS: EZETIMIBE 10 MG TABLET PO SCH (20:18)
[2022-12-02] MEDS: CLOTRIMAZOLE/BETAMETHASONE CR 15 GM TUBE EXT SCH (20:22)
[2022-12-02] MEDS ORDERED: COUGH DROP (SUGAR FREE) LOZ 24 LOZ/1 BOX BUCCAL ONE (21:03)
[2022-12-03] MEDS: BENZONATATE 100 MG CAPSULE PO PRN ×2 (00:29→11:11)
[2022-12-03] MEDS: CLOBETASOL~ORDER AWAITING ACTION SCH ×2 (00:30→08:35)
[2022-12-03] MEDS: oxyCODONE HCL IR 5 MG TAB (IMMEDIATE RELEASE) PO PRN ×2 (00:30→12:04)
[2022-12-03] MEDS: LEVOTHYROXINE SODIUM 75 MCG TABLET PO SCH (05:55)
[2022-12-03] MEDS: GABAPENTIN 800 MG TAB PO SCH (05:55)
[2022-12-03] MEDS: LEVOTHYROXINE SODIUM 200 MCG TABLET PO SCH (05:55)
[2022-12-03] MEDS: ACETAMINOPHEN 325 MG TAB PO PRN (08:32)
[2022-12-03] MEDS: busPIRone 5 MG TAB PO SCH (08:33)
[2022-12-03] MEDS: METOPROLOL SUCC 25MG EXT REL TAB PO SCH (08:33)
[2022-12-03] MEDS: CHOLECALCIFEROL 1,000 UNITS 25 MCG TAB PO SCH (08:33)
[2022-12-03] MEDS: METHOCARBAMOL 500 MG TABLET PO SCH (08:34)
[2022-12-03] MEDS: FOLIC ACID 1 MG TAB PO SCH (08:34)
[2022-12-03] MEDS: ASPIRIN 81 MG ECTAB PO SCH (08:34)
[2022-12-03] MEDS: CLOPIDOGREL BISULFATE 75 MG TAB PO SCH (08:34)
[2022-12-03] MEDS: DULoxetine HCL 60 MG CAP PO SCH (08:34)
[2022-12-03] MEDS: guaiFENesin 600 MG TABCR PO SCH (08:34)
[2022-12-03] MEDS: MONTELUKAST SODIUM 10 MG TABLET PO SCH (08:34)
[2022-12-03] MEDS: NYSTATIN POWDER 15GM BTL EXT SCH (08:35)
[2022-12-03] MEDS: FLUTICASONE FUROATE 100MCG 14 PUFFS/INHALER INH SCH (08:35)
[2022-12-03] MEDS: MAGNESIUM OXIDE 400 MG TAB PO SCH (08:35)
[2022-12-03] MEDS: FERROUS SULFATE 325 MG TAB PO SCH (08:35)
[2022-12-03] MEDS: PANTOprazole 40 MG TAB PO SCH (08:36)
[2022-12-03] MEDS: UMECLIDINIUM/VILANTEROL 62.5/25MCG 7 PUFFS/INHALER INH SCH (08:36)
[2022-12-03] MEDS: OXYBUTYNIN CHLORIDE 5 MG TAB PO SCH (08:36)
--- NOTE | 2022-12-03 09:05 | Surgery Progress Note ---
Date of Service December 03, 2022 Assessment & Plan (1) Internal carotid artery stent present: Plan: Patient doing well post tcar. Pressure dressings removed from R neck, no further draiange or bleeding noted. Discussed with Dr Aiken. Pt is to restart her eliquis tonight if no further bleeding. Ok for d/c home. Admission and Anticipated Discharge Date Admission Date: December 01, 2022 Subjective 62 yo f POD #2 after R TCAR, seen in f/u today. Had bloody drainage from her neck incision yesterday. Pressure dressings placed. Patient denies focal deficits, but is having pain in R neck incision. Review of Systems Review of Systems: All systems reviewed & are unremarkable except as noted in HPI & below Physical Exam Constitutional: WD/WN, vitals as above Respiratory: normal respiratory effort; no respiratory distress Cardiovascular: Rate/Rhythm: regular rate and regular rhythm Musculoskeletal: Extremities: extremities normal to inspection and strength 5/5 throughout Skin: + ecchymosis (significant soft ecchymosis neck/chest) and + incision (bloody drainage dressing, no active drainage.) Neurologic: CN's II-XI intact bilaterally and moves all extremities Psychiatric: Orientation: alert and oriented x 3 Results & Data Vital Signs (Past 12 Hours) Vital Signs Temp Pulse Pulse Pulse Pulse Resp BP 12/03/22 07:42 36.5 C 65 18 114/67 12/03/22 06:55 36.6 C 67 18 144/74 H 12/02/22 22:58 59 L 22 12/02/22 22:28 59 L 20 Pulse Ox O2 Del Method O2 Flow Rate 12/03/22 07:42 100 Nasal Cannula 5 12/03/22 06:55 100 Nasal Cannula 5 12/02/22 22:58 94 1 12/02/22 22:28 94 Room Air
--- NOTE | 2022-12-03 09:24 | Discharge Summary ---
Date of Service December 03, 2022 Admission HPI Per Admitting Provider Ms Diana Carrington is a 62-year-old female with multiple medical problems. She had an ultrasound done the fall of last year which showed a severe stenosis of her right internal carotid artery. She does claim to have had a stroke in 2005 at the same time that she had a deep venous thrombosis of her lower extremity. She underwent tPA at that time with total resolution of her cerebrovascular symptoms. 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 She denies any neurological symptoms since 2005. The ultrasound at that time showed a 50% stenosis of the right carotid and no narrowing of the left side. She denies any claudication of her lower extremities. She did have an echo done last fall showed an ejection fraction of 55%. CT angiogram showed greater than 80% narrowing of both internal carotid arteries at their origins. Admission Exam Per Admitting Provider Physical exam he is awake alert and oriented x3. She is in no apparent distress. Her blood pressure is 106 systolic on the right 98 systolic on the left. Her radials carotids are +2 bilaterally. I cannot appreciate carotid br uits. Lungs were clear. Heart had a regular rate and rhythm. Abdominal exam was benign. I cannot appreciate an aortic pulse due to the body habitus. Femoral pedal's are +2 bilaterally. Neurologic exam is intact motor and sensory function. Principal Diagnosis 1. s/p R TCAR 2. RICAS Discharge Exam Constitutional WD/WN, vitals as above Respiratory normal respiratory effort; no respiratory distress Cardiovascular Rate/Rhythm: regular rate and regular rhythm Musculoskeletal Extremities: extremities normal to inspection and strength 5/5 throughout Skin + ecchymosis (significant soft ecchymosis neck/chest) and + incision (bloody drainage dressing, no active drainage.) Neurologic CN's II-XI intact bilaterally and moves all extremities Psychiatric Orientation: alert and oriented x 3 Discharge Data Allergies Allergy/AdvReac Type Severity Reaction Status Date / Time bee pollen Allergy Severe Anaphylaxis Verified 12/01/22 09:48 fentanyl Allergy Severe Severe Verified 12/01/22 09:48 sedation, resp depression (only with patches) Penicillins Allergy Severe Anaphylaxis Verified 12/01/22 09:48 adhesive Allergy Unknown Blister Verified 12/01/22 09:48 (wipe some plastic tape) buprenorphine [From Suboxone] Allergy Unknown Vomiting, Verified 12/01/22 09:48 skin problems honey Allergy Unknown Hives Verified 12/01/22 09:48 pregabalin Allergy Unknown Shortness Verified 12/01/22 09:48 of breath oxcarbazepine AdvReac Severe Severe Verified 12/01/22 09:48 [From Trileptal] stomach issues sulfamethoxazole AdvReac Severe Severe Verified 12/01/22 09:48 nausea trimethoprim AdvReac Severe Severe Verified 12/01/22 09:48 nausea cephalexin AdvReac Unknown Nausea Verified 12/01/22 09:48 clindamycin AdvReac Unknown Diarrhea Verified 12/01/22 09:48 fluticasone AdvReac Unknown Severe Verified 12/01/22 09:48 thrush ketorolac AdvReac Unknown Migraine Verified 12/01/22 09:48 levofloxacin [From Levaquin] AdvReac Unknown IBS ("can Verified 12/01/22 09:48 only tolerate for 5 days") naloxone [From Suboxone] AdvReac Unknown Severe Verified 12/01/22 09:48 nausea, SKIN PROBLEMS ondansetron [From Zofran] AdvReac Unknown Migraine Verified 12/01/22 09:48 saccharin [From Sweeta] AdvReac Unknown Severe Verified 12/01/22 09:48 vomiting salmeterol AdvReac Unknown Severe Verified 12/01/22 09:48 thrush Consultations 12/01/22 15:52 Consult Guest Services Attendant Routine Procedures Performed Operation Date: 12/01/22 13:00 Actual Procedures p Right Transcarotid Artery Revascularization, Ultrasound Localization of Femoral Vein(Right) - Celso Sheldon MD Ordered Studies 12/01/22 07:52 EV angio carotid cerv RT Routine US EV guide vascular access Routine Hospital Course (1) Internal carotid artery stent present: Patient doing well post tcar. Pressure dressings removed from R neck, no further draiange or bleeding noted. Discussed with Dr Sheldon. Pt is to restart her eliquis tonight if no further bleeding. Ok for d/c home. Total Time Total Time Spent Total Time Spent (In Minutes): 0 Discharge Plan Discharge Items Patient Disposition: Home - Self-Care Reason For Visit: Bilateral Internal Carotid Artery Stenosis Discharge Diagnosis: 1. R TCAR 2. R ICA stenosis Activity: Per Instructions section Non-emergency contact: Primary Care Provider Call non-emergency contact if: you have a fever, your wound has increased redness and your wound has increased drainage Follow-up/Referrals: Gerda Johnson DO [Primary Care Provider] - (Follow up with your PCP within 2 weeks) Celso Sheldon MD [Physician] - (Follow up with Dr Sheldon or Theresa Patterson PA-C in 2 weeks) Diet: Heart Healthy Addtl Attending Provider Instructions: SPECIAL CARE INSTRUCTIONS: Medications: * Continue to take Aspirin, Clopidogrel, and Pravastatin. DO NOT STOP THESE MEDICATIONS WITHOUT SPEAKING TO DR SHELDON'S OFFICE. May take oxycodone up to 4 times daily for 1 week post op. May restart your Eliquis this evening if no further bleeding. Call Dr Sheldon's office if further bleeding noted. Incision Care: * You may shower, but do not rub incision. You may let the warm soapy water run over it. Be sure to dry the incision well after bathing. * Do not shave directly over the incision until it is healed. * DO NOT IMMERSE THE INCISION IN A TUB/POOL/etc. UNTIL HEALED. Restrictions: * Do not drive for at least one week or if you are still taking any narcotic pain medication. * Do not lift anything heavier than a gallon of milk for one week after going home. Possible Complications: * Numbness - It is normal to have some numbness around the incision. Numbness can extend beyond the incision to areas of the neck, ear and face. The numbness is due to bruising of nerves during the surgery and will gradually improve over a period of months. * Hoarseness/Difficulty Speaking and Swallowing - The bruising of nerves in the neck can also cause a hoarse voice, difficulty speaking or swallowing. This may improve over time, HOWEVER, if it continues for more than a few days please contact our office ([phone]). * Excessive Swelling - There will be some swelling immediately after surgery which usually resolves within one week. If you notice that the swelling is getting worse, notify your surgeon ([phone]). * Drainage/Bleeding - If there is any drainage or bleeding, it should be a very small amount (less than a teaspoon per day). If you have excessive bleeding or drainage from the incision, call your surgeon ([phone]) right away. ACTIVATION OF EMERGENCY MEDICAL SYSTEM: Call 911, immediately, if you experience any of the following: Warning Signs and Symptoms of Stroke: * Sudden numbness or weakness of the face, arm or leg, especially on one side of the body * Sudden confusion, trouble speaking or understanding * Sudden trouble seeing in one or both eyes * Sudden trouble walking, dizziness, loss of balance or coordination * Sudden severe headache with no cause Do not delay calling 911 if you experience any warning signs or symptoms of a stroke. Delay in seeking medical attention may affect what treatments can be given to you. Risk Factors for Stroke: You can reduce your chances of stroke by working with your medical provider to adopt a healthy lifestyle. Some specific ways to lower your chance of stroke are: * If you are a smoker, now is the time to stop smoking cigarettes * If you are diabetic, improve the control of your blood sugars * Avoid excessive amounts of alcohol * Control high blood pressure * Lose weight if you are overweight * Be sure to lead an active lifestyle * Eat a healthy diet low in salt, cholesterol and fat You should know about other risk factors for stroke that you are unable to control. These include: * Age 55 years or older * Male gender * Certain racial groups: , or / * Family History of Stroke, Mini stroke or Heart Attack * Sickle Cell Disease You will be receiving a call from the Vascular Surgery Nurse after you are discharged. FOLLOW UP VISIT: It is important for you to keep your follow up appointments with your medical provider. Keep any scheduled doctor appointments. Pending Studies at Discharge: No Stand-Alone Forms: My [facility], Smoking Cessation Medications and DC Order Prescriptions: Continued (DME) Hospital Bed [facility] [place] See Rx Instructions .ROUTE .MEDSUPPLY Qty: 1 0RF Rx Instructions: Dx: M19.90, M96.1, M51.9, M48.02, M48.04, J44.9 (DME) blood-glucose meter [OneTouch Verio Meter] [facility] [place] See Rx Instructions .ROUTE .MEDSUPPLY Qty: 1 0RF Rx Instructions: As directed (DME) lancets [OneTouch Delica Lancets] 30 gauge [facility] [place] See Dose Instructions .ROUTE .MEDSUPPLY Qty: 200 4RF Dose Instruction: As directed Rx Instructions: testing four times per day. albuterol sulfate 2.5 mg/0.5 mL solution for nebulization 2.5 mg INHALATION QID PRN (Reason: Wheezing) Qty: 30 5RF ezetimibe [Zetia] 10 mg tablet 10 mg PO HS Qty: 30 11RF Eliquis 5 mg tablet 5 mg PO BID Qty: 90 1RF Patient Comments: TO BE STOPPED DAY BEFORE SURGERY PER DR SHELDON , TAKE NONE ON THE / DR PATTERSON IS ALSO AWARE cyanocobalamin (vitamin B-12) 500 mcg tablet 1,000 mcg PO Q2D Qty: 60 5RF duloxetine [Cymbalta] 60 mg capsule,delayed release(DR/EC) 60 mg PO BID 7 Days Qty: 60 11RF nitroglycerin [Nitrostat] 0.4 mg tablet, sublingual 0.4 mg Sublingual UD PRN (Reason: Pain) Qty: 25 5RF Patient Comments: HAVEN'T USED IN AGES folic acid 1 mg tablet 1 mg PO QAM Qty: 90 3RF hydroxyzine pamoate [Vistaril] 25 mg capsule 25 mg PO TID PRN (Reason: Anxiety) Qty: 60 5RF ferrous sulfate 325 mg (65 mg iron) tablet 325 mg PO BID Qty: 60 5RF magnesium oxide 400 mg magnesium tablet 400 mg PO TID Qty: 270 1RF montelukast [Singulair] 10 mg tablet 10 mg PO QAM Qty: 90 1RF metoprolol succinate 25 mg tablet extended release 24 hr 25 mg PO BID Qty: 180 3RF Hold Instructions: hypotensive gabapentin 800 mg tablet 800 mg PO UD Qty: 105 3RF Rx Instructions: 800 mg PO 1 tablet QAM, 1 tablet QPM, and 1.5 tablet HS; (VERIFIED PAT 11/24/22) clobetasol 0.05 % solution 1 applic topical DAILY Qty: 50 5RF trazodone 100 mg tablet 300 mg PO HS Qty: 90 2RF mometasone 0.1 % cream 1 applic topical DAILY PRN (Reason: allergic reaction) Qty: 15 3RF Rx Instructions: Apply to affected ear once daily as needed for itching benzonatate 200 mg capsule 200 mg PO TID PRN (Reason: cough) Qty: 30 0RF pravastatin 40 mg tablet 40 mg PO HS Qty: 30 11RF oxycodone 10 mg tablet 10 mg PO Q12H PRN (Reason: pain, severe) Qty: 60 0RF sucralfate [Carafate] 1 gram tablet 1 g PO BID PRN (Reason: Acid Reflux) Qty: 60 0RF nystatin 100,000 unit/gram powder 1 applic topical BID Qty: 30 2RF (DME) blood sugar diagnostic Strip See Dose Instructions .ROUTE .MEDSUPPLY Qty: 100 5RF Dose Instruction: As directed Rx Instructions: testing four times per day. methocarbamol 500 mg tablet 1,000 mg PO QID 30 Days Qty: 240 1RF buspirone 10 mg tablet 10 mg PO TID Qty: 270 1RF Trelegy Ellipta 100-62.5-25 mcg blister with device 1 inh INH QAM Qty: 60 1RF (DME) Oxygen Home Liters Per Minute See Dose Instructions .ROUTE .MEDSUPPLY Qty: 1 0RF Dose Instruction: As directed Rx Instructions: 5LPM via [place] @ . levothyroxine 200 mcg tablet 200 mcg PO QAM Qty: 90 1RF Rx Instructions: please change to 90 day supply levothyroxine 50 mcg tablet 75 mcg PO QAM Qty: 135 1RF Rx Instructions: To take along with 200mcg dose clobetasol 0.05 % lotion 1 appln TOP BID PRN (Reason: itching) 14 Days Qty: 59 3RF Rx Instructions: FIVE DROPS TO AFFECTED EAR CANAL(S) TWICE DAILY NEEDED FOR EAR CANAL ITCHING doxycycline hyclate 100 mg capsule 100 mg PO QPM albuterol sulfate 90 mcg/actuation HFA aerosol inhaler 2 puff INHALATION Q6H PRN (Reason: Wheezing) Qty: 18 5RF (DME) CPAP Machine Misc .Route Qty: 1 0RF Rx Instructions: CPAP 10 cm of water with oxygen bleed at 1 L/min, mask fit patient comfort, heated modification, compliance download capabilities, DME: [facility] medical equipment cholecalciferol (vitamin D3) 1,000 unit capsule 1,000 units PO QAM Mucinex 1,200 mg Tablet Extended Release 12hr 1,200 mg PO Q12H PRN (Reason: Nasal Congestion) clotrimazole-betamethasone 1-0.05 % cream 1 applic topical UD Patient Comments: MOSTLY EVERY OTHER NIGHT Rx Instructions: Apply small/pea-sized amount topically before bed oxybutynin chloride 5 mg tablet 10 mg PO BID Ozempic 1 mg/dose (4 mg/3 mL) pen injector 1 mg subcut WK Patient Comments: takes on wednesdays esomeprazole magnesium [Nexium] 40 mg capsule,delayed release(DR/EC) 40 mg PO BID levocetirizine [Xyzal] 5 mg tablet 5 mg PO HS clopidogrel [Plavix] 75 mg Tablet 75 mg PO DAILY aspirin 81 mg Capsule 81 mg PO DAILY Discharge Orders: Discharge Order (Routine); Ordered 12/03/22 Ordered By: Theresa Patterson Admission Data Admit Date/Time: 12/01/22 11:13 Attending Provider: Celso Sheldon Admit Provider: Celso Sheldon Primary Care Provider: Gerda Johnson Other Providers: Milad Lucero ; Skinny Cid ; Owen Salinas ; Christian Gonzalez ; Anirudh Zhao ; Ata Chan ; Jonathan Moya ; Jose David Haywood ; Martita Haq
== END 2022-12-03 12:42 | disposition home or self-care (01) | DRG 35 ==
LOC: ASU 09:23 → 1E 11:13 → 3W 12-02 13:54
PROC: EV.TCAR (2022-12-01 13:00)

== ENCOUNTER 2023-01-20 08:07 | Inpatient (IN) ==
--- NOTE | 2023-01-11 12:06 | Anesthesiology Consultation ---
Date of Service January 11, 2023 Assessment & Plan (1) Encounter for pre-operative examination: - COVID screening: Per assessment on 01/11: No known COVID-19 positive contacts or current COVID-19 related symptoms. Travel screen negative. Patient vaccinated. At surgeon discretion if preop Covid testing being done. - Check BSG AM DOS - Eliquis/Plavix/ASA instructions per surgeon/prescriber. - Pulmonology visit (08/02/22): "...COPD: Gold stage 0. Continue Trelegy as needed...Severe sleep apnea...CPAP at 10 cmH2O with oxygen bleed at 1 L/min..." - Cardiology visit (10/14/22): "...stable from cardiovascular standpoint. She demonstrates excellent control of her blood pressure and HDL cholesterol...LDL cholesterol remains elevated, therefore, we will increase her pravastatin...continues to tolerate rate control and long-term anticoagulation without difficulty...Increase pravastatin to 40 mg daily...Continue all other medications...Continue physical activity as able...Continue home blood pressure monitoring...Lipid panel prior next visit...Follow-up 6 months." -Infectious disease visit (10/25/22): "...6 month follow up...chronic suppression on doxycycline...back wound incision remains healed, no drainage...diagnosed with bilateral pneumonia last week-finished Levaquin today and has CT thorax scheduled for tomorrow. Continues with cough, sinus drainage...sinus procedure scheduled this month...remains healed. Continue with chronic doxy-labs and pain stable. Discussed methotrexate...okay to start..."Pt states she did not start/is not on methotrexate. - S/P right transcarotid artery revascularization (12/01/2022): Grade view 1, ETT 7 at [facility]. No issues noted per post-op anesthesia progress note. - PCP visit (12/13/22): "Admitted to [facility] 12/01-12/03/22 for R internal carotid artery stenosis. She underwent R TCAR on 12/01/22 Dr Aiken. She did well post op. d/c home to f/u w/ PCP and vascular.. Here today noting she is recovering well, she reports incision healing well, still w/ mild swelling, no redness, no drainage. She is still w/ hoarseness though improving, no dysphagia. She is noting more headaches since surgery, no dizziness, no vision changes, no paresthesias.. She has been taking her medications as directed, no issues. To see vascular later this week. She notes her pain is improved, did temp increase her oxycodone to qid, back down to baseline of bid.. Respiratory normal respiratory effort, lungs clear to auscultation" Chart Review Chart Review: Acceptable Risk for Surgery (pending evaluation AM DOS) and Patient NOT seen in Pre Admission Testing History Surgery Operation Date: 01/20/23 12:30 Proposed Procedures p Left Transcarotid Artery Revascularization - Celso Aiken MD Height/Weight Height: 5 ft 5 in Weight: 117.934 kg Allergies Allergy/AdvReac Type Severity Reaction Status Date / Time bee pollen Allergy Severe Anaphylaxis Verified 01/11/23 10:29 fentanyl Allergy Severe Severe Verified 01/11/23 10:29 sedation, resp depression (only with patches) Penicillins Allergy Severe Anaphylaxis Verified 01/11/23 10:29 pregabalin Allergy Severe Shortness Verified 01/11/23 10:29 of breath honey Allergy Intermediate Hives Verified 01/11/23 10:29 adhesive Allergy Mild Blister Verified 01/11/23 10:29 (wipe some plastic tape) buprenorphine [From Suboxone] Allergy Mild Vomiting, Verified 01/11/23 10:29 skin problems oxcarbazepine AdvReac Severe Severe Verified 01/11/23 10:29 [From Trileptal] stomach issues sulfamethoxazole AdvReac Severe Severe Verified 01/11/23 10:29 nausea trimethoprim AdvReac Severe Severe Verified 01/11/23 10:29 nausea fluticasone AdvReac Intermediate Severe Verified 01/11/23 10:29 thrush ketorolac AdvReac Intermediate Migraine Verified 01/11/23 10:29 levofloxacin [From Levaquin] AdvReac Intermediate IBS ("can Verified 01/11/23 10:29 only tolerate for 5 days") ondansetron [From Zofran] AdvReac Intermediate Migraine Verified 01/11/23 10:29 saccharin [From Sweeta] AdvReac Intermediate Severe Verified 01/11/23 10:29 vomiting salmeterol AdvReac Intermediate Severe Verified 01/11/23 10:29 thrush cephalexin AdvReac Mild Nausea Verified 01/11/23 10:29 clindamycin AdvReac Mild Diarrhea Verified 01/11/23 10:29 naloxone [From Suboxone] AdvReac Mild Severe Verified 01/11/23 10:29 nausea, SKIN PROBLEMS Medications Home Medications Medication Instructions Recorded Confirmed Last Taken Oxygen Home #1 ea 03/20/19 12/13/22 Unknown clobetasol 0.05 % lotion 1 appln topical BID PRN itching 2 10/16/19 01/11/23 03/22/22 weeks #59 mL Hospital Bed Homecare (Hospital #1 ea 11/14/19 12/13/22 Unknown Bed) blood-glucose meter ([facility] #1 ea 09/18/20 12/13/22 Unknown Verio Meter) doxycycline hyclate 100 mg capsule 100 mg PO QPM 06/17/21 01/11/23 11/30/22 18:30 lancets 30 gauge ([facility] #200 ea 06/19/21 12/13/22 Unknown Lancets) albuterol sulfate 2.5 mg/0.5 mL 2.5 mg (0.5 mL) inhalation QID PRN 07/13/21 01/11/23 11/28/22 solution for nebulization Wheezing #30 ea guaifenesin 1,200 mg tablet, 1,200 mg PO Q12H PRN Nasal 11/11/21 01/11/23 11/30/22 18:30 extended release 12 hr (Mucinex) Congestion apixaban 5 mg tablet (Eliquis) 5 mg PO BID #90 tabs 02/05/22 01/11/23 11/29/22 albuterol sulfate 90 mcg/actuation 2 puff inhalation Q6H PRN Wheezing 04/19/22 01/11/23 12/01/22 07:30 aerosol inhaler #18 grams duloxetine 60 mg capsule,delayed 60 mg PO BID 7 days #60 caps 06/02/22 01/11/23 12/01/22 06:30 release (Cymbalta) nitroglycerin 0.4 mg sublingual 0.4 mg sublingual UD PRN Pain #25 07/20/22 01/11/23 Unknown tablet (Nitrostat) tabs folic acid 1 mg tablet 1 mg PO QAM #90 tabs 07/22/22 01/11/23 11/30/22 05:30 CPAP Machine #1 ea 08/02/22 12/13/22 Unknown ferrous sulfate 325 mg (65 mg 325 mg PO BID #60 tabs 08/31/22 01/11/23 11/30/22 05:30 iron) tablet magnesium oxide 400 mg PO TID #270 tabs 09/03/22 01/11/23 11/30/22 19:30 montelukast 10 mg tablet 10 mg PO QAM #90 tabs 09/03/22 01/11/23 12/01/22 06:30 (Singulair) metoprolol succinate 25 mg 25 mg PO BID #180 tabs 09/06/22 01/11/23 12/01/22 06:30 tablet,extended release 24 hr gabapentin 800 mg tablet 800 mg PO UD #105 tabs 10/21/22 01/11/23 12/01/22 06:30 mometasone 0.1 % topical cream 1 applic topical DAILY PRN 10/22/22 01/11/23 Unknown allergic reaction #15 grams trazodone 100 mg tablet 300 mg PO HS #90 tabs 10/22/22 01/11/23 11/30/22 19:30 pravastatin 40 mg tablet 40 mg PO HS #30 tabs 11/11/22 01/11/23 11/30/22 19:30 sucralfate 1 gram tablet (Carafate) 1 g PO BID PRN Acid Reflux #60 tabs 11/16/22 01/11/23 11/30/22 18:30 nystatin 100,000 unit/gram topical 1 applic topical BID #30 grams 11/23/22 01/11/23 Unknown powder blood sugar diagnostic #100 ea 11/24/22 12/13/22 Unknown clotrimazole-betamethasone 1 1 applic topical UD 11/24/22 01/11/23 Unknown %-0.05 % topical cream oxybutynin chloride 5 mg tablet 10 mg PO BID 11/24/22 01/11/23 11/30/22 19:30 semaglutide 1 mg/dose (4 mg/3 mL) 1 mg subcut WK 11/24/22 01/11/23 12/01/22 07:30 subcutaneous pen injector (Ozempic) buspirone 10 mg tablet 10 mg PO TID #270 tabs 11/26/22 01/11/23 12/01/22 06:30 methocarbamol 500 mg tablet 1,000 mg PO QID 30 days #240 tabs 11/26/22 01/11/23 11/30/22 19:30 fluticasone fur. 100 mcg-umeclid 1 inh inhalation QAM #60 ea 11/30/22 01/11/23 12/01/22 06:30 62.5 mcg-vilant 25 mcg inhalat.powder (Trelegy Ellipta) aspirin 81 mg capsule 81 mg PO DAILY 12/01/22 01/11/23 12/01/22 06:30 esomeprazole magnesium 40 mg 40 mg PO BID 12/01/22 01/11/23 11/30/22 19:30 capsule,delayed release (Nexium) levocetirizine 5 mg tablet (Xyzal) 5 mg PO HS 12/01/22 01/11/23 11/30/22 19:30 clopidogrel 75 mg tablet (Plavix) 75 mg PO DAILY #90 tabs 12/03/22 01/11/23 Unknown cyanocobalamin (vitamin B-12) 500 1,000 mcg PO DAILY #60 tabs 12/06/22 01/11/23 Unknown mcg tablet oxycodone 10 mg tablet 10 mg PO Q6H PRN pain, severe #60 12/09/22 01/11/23 Unknown tabs benzonatate 200 mg capsule 200 mg PO TID PRN cough #30 caps 12/16/22 01/11/23 Unknown levothyroxine 200 mcg tablet 200 mcg PO QAM #90 tabs 12/24/22 01/11/23 Unknown levothyroxine 50 mcg tablet 75 mcg PO QAM #135 tabs 12/24/22 01/11/23 Unknown hydroxyzine pamoate 25 mg capsule 25 mg PO TID PRN Anxiety #60 caps 12/31/22 01/11/23 Unknown (Vistaril) ezetimibe 10 mg tablet (Zetia) 10 mg PO HS #30 tabs 01/03/23 01/11/23 Unknown Past Medical History Medical History (Updated 01/11/23 @ 13:23 by Ifrah Whitten) AF (paroxysmal atrial fibrillation) Takes Eliquis NO HX CARDIOVERSION Allergic rhinitis Anemia Anxiety Carotid artery narrowing Chronic hyponatremia Chronic interstitial cystitis COPD (chronic obstructive pulmonary disease) Coronary artery disease Minor nonobstructive CAD per September 2012 cath per cardio records No hx stents or angioplasty Depression Diabetic neuropathy Diffuse myofascial pain syndrome GERD (gastroesophageal reflux disease) History of CT (myocardial infarction) (2009) 2009 History of seizures Age 3 (in setting of fever/measles) History of TIA (transient ischemic attack) Hx of deep venous thrombosis 3 years ago- Takes Eliquis Hx of thyroid cancer s/p thyroidectomy + XRT (one round) Hyperlipidemia Hypertension Hypothyroidism (acquired) S/p thyroidectomy 2015 (final pathology negative for malignancy) Meralgia paresthetica of right side Follows with neuro Mixed hearing loss of right ear No hearing aids Morbid obesity BMI 43.2 Obesity hypoventilation syndrome Personal history of pulmonary embolism (2014) Personal history of skin cancer s/p excision from RLE Psoriatic arthritis No meds at this time- follows with rheum Severe sleep apnea 5L oxygen via N/C- (WAITING ON CPAP DEVICE) Follows with pulm TIA (transient ischemic attack) 2013 Type 2 diabetes mellitus IDDM Past Family History Family History Mother Diabetes Family history of diabetes mellitus Cardiac disorder Heart trouble Myocardial infarction Renal failure Family history of reaction to anesthesia Hypertension Stroke Gallbladder disease Grandfather Family hx of colon cancer Myocardial infarction Father Colon cancer Cardiac disorder Kidney stones Heart trouble Myocardial infarction Degenerative disc disease Lung disease Hypertension Stroke Aunt Colon cancer Diabetes Grandmother (Maternal) Degenerative disc disease Cancer Sister Diabetes Family history of diabetes mellitus Breast cancer Cancer Hypertension Gallbladder disease Family/Other Kidney disease Brother Multiple sclerosis Uncle Myocardial infarction Grandfather (Maternal) Family history of diabetes mellitus Aunt Diabetes Aunt Diabetes Aunt Diabetes Aunt Diabetes Aunt Diabetes Other Dementia Denies family history of Ovarian cancer Prostate cancer Adverse effect of anesthesia Bleeding disorder Past Surgical History Surgical History H/O cataract extraction R/L H/O colonoscopy with polypectomy History of appendectomy History of back surgery x5 (including fusion). 07/15/20 Grade 1 view, MAC 3, ETT 7. History of breast biopsy Left (benign) History of cardiac cath x7 (09/2012 > no stents) History of cervical spinal surgery x2 (GOOD ROM per pt) History of cystoscopy Multiple History of esophagogastroduodenoscopy (EGD) History of incision and drainage I&D lumbar spine incision w/ placement of abx beads and wound vac - NO CURRENT WOUND VAC/ANTIBIOTIC DAILY (DOXYCYCLINE) 08/11/20 Grade 1 view, MAC 3, ETT 7. History of knee replacement R/L History of placement of ear tubes R/L History of right common carotid artery stent placement (12/01/22) R MICHAELRDr Aiken History of thyroidectomy, total (2015) History of tonsillectomy S/P section x2 S/P dilatation and curettage S/P lumbar fusion Social History Smoking Status: Current every day smoker tobacco type: cigarettes Smoking cigarettes per day: 10 a day (advised on policy) Do You Dip or Chew Tobacco: No Hx Alcohol Use: No Hx Substance Use: No substance use type: does not use Lab Results Anesthesia Preop Results Results Anesthesia Widget: WBC 9.71 K/ul (4.8-10.8) 12/22/22 Hgb 11.0 g/dl (12.0-16.0) L 12/22/22 Hct 35.6 % (37.0-47.0) L 12/22/22 Plt 305 K/uL (130-400) 12/22/22 Na 135 mmol/L (136-145) L 12/22/22 K 4.9 mmol/L (3.5-5.1) 12/22/22 Cl 97 mmol/L (98-107) L 12/22/22 CO2 31 mmol/L (21-32) 12/22/22 BUN 11 mg/dl (6-23) 12/22/22 Creat 0.85 mg/dl (0.6-1.2) 12/22/22 Glucose Level 109 mg/dl (70-99(Fasting)) H 12/22/22 POC Glucose 115 mg/dl (70-99) H 12/02/22 PT 10.7 Seconds (9.0-12.0) 11/23/22 PTT 32.4 Seconds (21.0-31.0) H 11/23/22 INR 1.0 (0.9-1.1) 11/23/22 TSH 0.323 uIu/ml (0.300-4.500) 12/22/22 HA1c 5.3 % (4.5-5.6) 12/22/22 SARS-CoV-2, RNA, NAAT NEGATIVE (NEGATIVE) 12/01/22 Blood Type A Positive 12/01/22 Antibody Screen NEGATIVE 12/01/22 Testing Electrocardiogram Date: 12/21/22 Findings: + NSR @ (76) Chest X-Ray Date: 10/16/22 Hazy bilateral airspace opacities. Echocardiogram Date: 11/22/18 EF 55-60% No regional wall motion abnormalities Mild to moderate cLVH No significant diastolic dysfunction No significant valvular abnormalities Other Testing Neck CTA 11/12/22 1. Hemodynamically significant stenosis of the bilateral internal carotid arteries near the bifurcation. 2. Hemodynamically significant stenosis of the left subclavian artery, clinical correlation for subclavian steal syndrome is recommended. Chest CT 10/26/22 Thyroid: Atrophic. Thoracic aorta: There is atherosclerotic calcification of the thoracic aorta, which is normal in caliber and demonstrates standard 3-vessel arch anatomy. Heart: The heart is normal in size and without pericardial effusion. The coronary arteries are densely calcified. Lungs and pleural spaces: Evaluation of the lung parenchyma is degraded by motion artifact. There is mild emphysematous change. No airspace consolidation or pleural effusion is identified. The trachea and central airways are clear. Faint centrilobular micronodules and groundglass change is present in both lungs with an upper lobe predominance. This suggests a bronchiolitis. There is mild diffuse pericardial thickening. Minimal mucous plugging is seen in the right lower lobe. There are scattered calcified granulomas. A 3 mm linear nodule in the right upper lobe on image #98 is unchanged from 2020. Mediastinum: There is no mediastinal lymphadenopathy. Digna: Not well assessed without IV contrast. Axillae: There is no axillary lymphadenopathy. Upper abdomen: There is a small hiatal hernia. Partially visualized upper abdominal viscera is within normal limits. Skeletal structures: The skeletal structures are osteopenic. No lytic or blastic bony lesions are seen. Advanced arthritic change is seen in the shoulders. Degenerative changes and kyphoscoliosis is noted in the thoracic spine. IMPRESSION: 1. Mild emphysema. 2. Findings suggest bronchiolitis. Clinical correlation will be required. 3. There is no lobar consolidation or pleural effusion. 4. Advanced coronary artery calcification. 5. Additional findings as above. Carotid doppler 08/26/22 > 70% stenosis R ICA 50-69% stenosis L ICA > 50% stenosis L subclavian artery stenosis Abdomen pelvis CT 12/25/21 Lung base: The lung bases are clear. Abdominal cavity: There is no evidence for abdominal mass, adenopathy or ascites. Liver: There is homogeneous attenuation of the liver parenchyma. There is no evidence for enhancing mass lesion. Spleen: There is homogeneous attenuation of the splenic parenchyma. There is no enhancing mass lesion. Pancreas: There is homogeneous attenuation of the pancreatic parenchyma. There is no evidence for mass lesion or peripancreatic fluid collection. Gall Bladder: The gallbladder is well distended with no evidence for intraluminal calculi, wall thickening or pericholecystic edema. Adrenal glands: The adrenal glands are normal in size and attenuation. There is no evidence for enhancing mass lesion. Kidneys: There is homogeneous attenuation of the renal parenchyma bilaterally. There is no evidence for renal calculus or hydronephrosis. There is no evidence for enhancing mass. Sharply defined exophytic cyst is again seen involving the left kidney measuring 2.0 cm. Bowel: There is a small hiatal hernia. The bowel loops are normally placed within the abdomen and pelvis without evidence for dilatation or obstruction. There is no evidence for mass lesion. There is sigmoid diverticulosis without evidence for diverticulitis. There are no inflammatory changes present. There is no evidence for free air. Bladder: On the current study, there is suspicion of a small filling defect at t he floor the bladder centrally and to the left measuring 3.1 x 1.1 cm. The presence of a bladder mass cannot be excluded and follow-up direct visualization is recommended. : There is no evidence for pelvic mass or adenopathy. There is no evidence for pelvic ascites. The patient is again status post hysterectomy. Vasculature: There is no evidence for aneurysmal dilatation of the abdominal aorta. Atherosclerotic calcification is again seen. Osseous structures: There is no acute osseous pathology. Previous internal fixation and degenerative changes are again seen. IMPRESSION: 1. Compared to previous examination, there is suspicion of a small filling defect at the floor the bladder measuring 3.1 x 1.1 cm. Direct visualization is recommended. 2. No renal calculus or hydronephrosis. 3. No other evidence for acute intra-abdominal or pelvic abnormality. 4. Additional nonacute findings are again delineated above.
--- NOTE | 2023-01-20 08:06 | History & Physical Report ---
Date of Service January 20, 2023 Assessment & Plan (1) Stenosis of left internal carotid artery: Plan: Patient is admitted for a left TCAR. I have discussed the risks options and benefits of the procedure with the patient. The patient understands the risks options and benefits and agrees to the procedure. History of Present Illness Chief Complaint: Left carotid stenosis Primary Care Provider: Gerda Johnson DO Ms Diana aCrrington is a 62-year-old female with multiple medical problems. She had an ultrasound done the fall of last year which showed a severe stenosis of her right internal carotid artery. She does claim to have had a stroke in 2005 at the same time that she had a deep venous thrombosis of her lower extremity. She underwent tPA at that time with total resolution of her cerebrovascular symptoms. 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 She denies any neurological symptoms since 2005. The ultrasound at that time showed a 50% stenosis of the right carotid and no narrowing of the left side. She denies any claudication of her lower extremities. She did have an echo done last fall showed an ejection fraction of 55%. CT angiogram showed greater than 80% narrowing of both internal carotid arteries at their origins. Since then she has undergone a right TCAR without any problems. She is admitted at this time for a left TCAR. She remains asymptomatic from this lesion. Allergies Allergy/AdvReac Type Severity Reaction Status Date / Time bee pollen Allergy Severe Anaphylaxis Verified 01/11/23 10:29 fentanyl Allergy Severe Severe Verified 01/11/23 10:29 sedation, resp depression (only with patches) Penicillins Allergy Severe Anaphylaxis Verified 01/11/23 10:29 pregabalin Allergy Severe Shortness Verified 01/11/23 10:29 of breath honey Allergy Intermediate Hives Verified 01/11/23 10:29 adhesive Allergy Mild Blister Verified 01/11/23 10:29 (wipe some plastic tape) buprenorphine [From Suboxone] Allergy Mild Vomiting, Verified 01/11/23 10:29 skin problems oxcarbazepine AdvReac Severe Severe Verified 01/11/23 10:29 [From Trileptal] stomach issues sulfamethoxazole AdvReac Severe Severe Verified 01/11/23 10:29 nausea trimethoprim AdvReac Severe Severe Verified 01/11/23 10:29 nausea fluticasone AdvReac Intermediate Severe Verified 01/11/23 10:29 thrush ketorolac AdvReac Intermediate Migraine Verified 01/11/23 10:29 levofloxacin [From Levaquin] AdvReac Intermediate IBS ("can Verified 01/11/23 10:29 only tolerate for 5 days") ondansetron [From Zofran] AdvReac Intermediate Migraine Verified 01/11/23 10:29 saccharin [From Sweeta] AdvReac Intermediate Severe Verified 01/11/23 10:29 vomiting salmeterol AdvReac Intermediate Severe Verified 01/11/23 10:29 thrush cephalexin AdvReac Mild Nausea Verified 01/11/23 10:29 clindamycin AdvReac Mild Diarrhea Verified 01/11/23 10:29 naloxone [From Suboxone] AdvReac Mild Severe Verified 01/11/23 10:29 nausea, SKIN PROBLEMS Home Medications Medication Instructions Recorded Confirmed Type Oxygen Home #1 ea 03/20/19 12/13/22 Rx clobetasol 0.05 % lotion 1 appln topical BID PRN itching 2 10/16/19 01/11/23 Rx weeks #59 mL Hospital Bed Home[facility] (Hospital #1 ea 11/14/19 12/13/22 Rx Bed[facility]13[facility]22 Rx Verio Meter) doxycycline hyclate 100 mg capsule 100 mg PO QPM 06/17/21 01/11/23 History lancets 30 gauge ([facility] #200 ea 06/19/21 12/13/22 Rx Lancets) albuterol sulfate 2.5 mg/0.5 mL 2.5 mg (0.5 mL) inhalation QID PRN 07/13/21 01/11/23 Rx solution for nebulization Wheezing #30 ea guaifenesin 1,200 mg tablet, 1,200 mg PO Q12H PRN Nasal 11/11/21 01/11/23 History extended release 12 hr (Mucinex) Congestion apixaban 5 mg tablet (Eliquis) 5 mg PO BID #90 tabs 02/05/22 01/11/23 Rx albuterol sulfate 90 mcg/actuation 2 puff inhalation Q6H PRN Wheezing 04/19/22 01/11/23 Rx aerosol inhaler #18 grams duloxetine 60 mg capsule,delayed 60 mg PO BID 7 days #60 caps 06/02/22 01/11/23 Rx release (Cymbalta) nitroglycerin 0.4 mg sublingual 0.4 mg sublingual UD PRN Pain #25 07/20/22 01/11/23 Rx tablet (Nitrostat) tabs folic acid 1 mg tablet 1 mg PO QAM #90 tabs 07/22/22 01/11/23 Rx CPAP Machine #1 ea 08/02/22 12/13/22 Rx ferrous sulfate 325 mg (65 mg 325 mg PO BID #60 tabs 08/31/22 01/11/23 Rx iron) tablet magnesium oxide 400 mg PO TID #270 tabs 09/03/22 01/11/23 Rx montelukast 10 mg tablet 10 mg PO QAM #90 tabs 09/03/22 01/11/23 Rx (Singulair) metoprolol succinate 25 mg 25 mg PO BID #180 tabs 09/06/22 01/11/23 Rx tablet,extended release 24 hr gabapentin 800 mg tablet 800 mg PO UD #105 tabs 10/21/22 01/11/23 Rx mometasone 0.1 % topical cream 1 applic topical DAILY PRN 10/22/22 01/11/23 Rx allergic reaction #15 grams pravastatin 40 mg tablet 40 mg PO HS #30 tabs 11/11/22 01/11/23 Rx sucralfate 1 gram tablet (Carafate) 1 g PO BID PRN Acid Reflux #60 tabs 11/16/22 01/11/23 Rx nystatin 100,000 unit/gram topical 1 applic topical BID #30 grams 11/23/22 01/11/23 Rx powder blood sugar diagnostic #100 ea 11/24/22 12/13/22 Rx clotrimazole-betamethasone 1 1 applic topical UD 11/24/22 01/11/23 History %-0.05 % topical cream oxybutynin chloride 5 mg tablet 10 mg PO BID 11/24/22 01/11/23 History buspirone 10 mg tablet 10 mg PO TID #270 tabs 11/26/22 01/11/23 Rx methocarbamol 500 mg tablet 1,000 mg PO QID 30 days #240 tabs 11/26/22 01/11/23 Rx fluticasone fur. 100 mcg-umeclid 1 inh inhalation QAM #60 ea 11/30/22 01/11/23 Rx 62.5 mcg-vilant 25 mcg inhalat.powder (Trelegy Ellipta) aspirin 81 mg capsule 81 mg PO DAILY 12/01/22 01/11/23 History esomeprazole magnesium 40 mg 40 mg PO BID 12/01/22 01/11/23 History capsule,delayed release (Nexium) levocetirizine 5 mg tablet (Xyzal) 5 mg PO HS 12/01/22 01/11/23 History clopidogrel 75 mg tablet (Plavix) 75 mg PO DAILY #90 tabs 12/03/22 01/11/23 Rx cyanocobalamin (vitamin B-12) 500 1,000 mcg PO DAILY #60 tabs 12/06/22 01/11/23 Rx mcg tablet benzonatate 200 mg capsule 200 mg PO TID PRN cough #30 caps 12/16/22 01/11/23 Rx levothyroxine 200 mcg tablet 200 mcg PO QAM #90 tabs 12/24/22 01/11/23 Rx levothyroxine 50 mcg tablet 75 mcg PO QAM #135 tabs 12/24/22 01/11/23 Rx hydroxyzine pamoate 25 mg capsule 25 mg PO TID PRN Anxiety #60 caps 12/31/22 01/11/23 Rx (Vistaril) ezetimibe 10 mg tablet (Zetia) 10 mg PO HS #30 tabs 01/03/23 01/11/23 Rx semaglutide 1 mg/dose (4 mg/3 mL) 1 mg (0.75 mL) subcut WK #3 mL 01/13/23 Rx subcutaneous pen injector (Ozempic) oxycodone 10 mg tablet 10 mg PO Q6H PRN pain, severe #60 01/14/23 Rx tabs trazodone 100 mg tablet 300 mg PO HS #90 tabs 01/18/23 Rx Past Med/Surg History Medical History AF (paroxysmal atrial fibrillation) Takes Eliquis NO HX CARDIOVERSION Allergic rhinitis Anemia Anxiety Carotid artery narrowing Chronic hyponatremia Chronic interstitial cystitis COPD (chronic obstructive pulmonary disease) Coronary artery disease Minor nonobstructive CAD per September 2012 cath per cardio records No hx stents or angioplasty Depression Diabetic neuropathy Diffuse myofascial pain syndrome GERD (gastroesophageal reflux disease) History of [place] (myocardial infarction) (2009) 2010 History of seizures Age 3 (in setting of fever/measles) History of TIA (transient ischemic attack) Hx of deep venous thrombosis 3 years ago- Takes Eliquis Hx of thyroid cancer s/p thyroidectomy + XRT (one round) Hyperlipidemia Hypertension Hypothyroidism (acquired) S/p thyroidectomy 2015 (final pathology negative for malignancy) Meralgia paresthetica of right side Follows with neuro Mixed hearing loss of right ear No hearing aids Morbid obesity BMI 43.2 Obesity hypoventilation syndrome Personal history of pulmonary embolism (2014) Personal history of skin cancer s/p excision from RLE Psoriatic arthritis No meds at this time- follows with rheum Severe sleep apnea 5L oxygen via N/C- (WAITING ON CPAP DEVICE) Follows with pulm TIA (transient ischemic attack) 2013 Type 2 diabetes mellitus IDDM Surgical History H/O cataract extraction R/L H/O colonoscopy with polypectomy History of appendectomy History of back surgery x5 (including fusion). 07/15/20 Grade 1 view, MAC 3, ETT 7. History of breast biopsy Left (benign) History of cardiac cath x7 (09/2012 > no stents) History of cervical spinal surgery x2 (GOOD ROM per pt) History of cystoscopy Multiple History of esophagogastroduodenoscopy (EGD) History of incision and drainage I&D lumbar spine incision w/ placement of abx beads and wound vac - NO CURRENT WOUND VAC/ANTIBIOTIC DAILY (DOXYCYCLINE) 08/11/20 Grade 1 view, MAC 3, ETT 7. History of knee replacement R/L History of placement of ear tubes R/L History of right common carotid artery stent placement (12/01/22) R Dr Attila EVANS History of thyroidectomy, total (2015) History of tonsillectomy S/P section x2 S/P dilatation and curettage S/P lumbar fusion Family History Mother Diabetes Family history of diabetes mellitus Cardiac disorder Heart trouble Myocardial infarction Renal failure Family history of reaction to anesthesia nausea/vomiting Hypertension Stroke Gallbladder disease Grandfather Family hx of colon cancer Myocardial infarction Father Colon cancer Cardiac disorder Kidney stones Heart trouble Myocardial infarction Degenerative disc disease Lung disease Hypertension Stroke Aunt Colon cancer Diabetes Grandmother (Maternal) Degenerative disc disease Cancer Sister Diabetes Family history of diabetes mellitus Breast cancer Cancer Hypertension Gallbladder disease Family/Other Kidney disease Brother Multiple sclerosis Uncle Myocardial infarction Grandfather (Maternal) Family history of diabetes mellitus Aunt Diabetes Aunt Diabetes Aunt Diabetes Aunt Diabetes Aunt Diabetes Other Dementia Denies family history of Ovarian cancer Prostate cancer Adverse effect of anesthesia Bleeding disorder Social History Smoking Status: Current every day smoker Tobacco Type: Cigarettes Age Started Using Tobacco: 12; packs per day: 0.5; Cigarettes Per Day: 10 a day (advised on policy); Second Hand Exposure: No; Do You Dip or Chew Tobacco: No; Tobacco Cessation Education Requested by Patient: No Hx Alcohol Use: No Hx Substance Use: No Preferred Language: Uzbek Communication Ability: Effective Visual Impairment: Limited Hearing Ability: Hard of Hearing Melter Helper Required: No Beliefs That Will Affect Care: None marital status: Current Living Situation: Spouse and Family Current Living Situation Comment: AND SON current occupational status: unemployed How many Children do You have: 2 Other Information That Helps Us Care for You: No Feels Safe at Home: Yes Safety Concerns: Feels Safe At This Time Childhood Exposure to Second-Hand Smoke: Yes (father smoked) Diet: regular Diet Comment: regular caffeine: Yes during the past year weight has: increased > 10 lbs Dental Care, Regularly: Yes Physical Activity Frequency: Does not Exercise Physical Activity Frequency Comment: LIMITED BY PHYSICAL CONDITION Seatbelt Use: always Sunscreen Use: Yes Assistive Devices: Cane, Glasses and Oxygen - at Night Review of Systems All systems reviewed & are unremarkable except as noted in HPI & below Physical Exam Physical Exam: Physical exam he is awake alert and oriented x3. She is in no apparent distress. Her blood pressure is equal in both upper extremities. Her radials carotids are +2 bilaterally. I cannot appreciate carotid bruits. Lungs were clear. Heart had a regular rate and rhythm. Abdominal exam was benign. I cannot appreciate an aortic pulse due to the body habitus. Femoral pedal's are +2 bilaterally. Neurologic exam is intact motor and sensory function.
[~2023-01-20 08:07] MED LIST changes: -LACTATED RINGER'S 1,000 ML IV SCH; +SODIUM CHLORIDE 0.9% 1000ML IV SCH
[2023-01-20 11:51] LABS: Calcium 8.9 mg/dl (8.6-10.3); Est GFR (Non-African American) 59.5 ml/min; Potassium 4.4 mmol/L (3.5-5.1)
[2023-01-20] MEDS ORDERED: HYDROmorphone INJ 1 MG/ML SYRINGE IV PRN (11:59)
[2023-01-20] MEDS ORDERED: ATROPINE SULFATE 0.1 MG/ML 10ML SYR IV PRN (11:59)
[2023-01-20] MEDS ORDERED: fentaNYL citrate PF 100 MCG/2 ML VIAL IV PRN (11:59)
[2023-01-20] MEDS ORDERED: ePHEDrine sulfate 50 MG/ML AMP IV PRN (11:59)
[2023-01-20] MEDS ORDERED: ONDANSETRON INJ 2 MG/ML 2 ML VIAL IV PRN (11:59)
[2023-01-20] MEDS ORDERED: PHENYLEPHRINE/NSS 25 MG/250 ML BAG IV PRN (12:15)
[2023-01-20] MEDS ORDERED: DEXAMETHASONE SOD INJ 4 MG/ML VIAL ONE (12:19)
[2023-01-20] MEDS ORDERED: LIDOCAINE 2% 2 ML VIAL/AMP(20MG/ML) INFIL ONE (12:19)
[2023-01-20] MEDS ORDERED: PROPOFOL IV EMULSION 10 MG/ML 20 ML VIAL IV ONE ×2 (12:19→15:07)
[2023-01-20] MEDS ORDERED: GLYCOPYRROLATE 0.2 MG/ML VIAL ONE (12:19)
[2023-01-20] MEDS ORDERED: ROCURONIUM BROMIDE 10 MG/ML 5 ML VIAL IV ONE (12:19)
[2023-01-20] MEDS ORDERED: ONDANSETRON INJ 2 MG/ML 2 ML VIAL ONE (12:19)
[2023-01-20] MEDS ORDERED: MIDAZOLAM HCL 1 MG/ML 2ML VIAL ONE (12:20)
[2023-01-20] MEDS ORDERED: fentaNYL citrate PF 100 MCG/2 ML VIAL ONE (12:20)
[2023-01-20] MEDS ORDERED: PROTAMINE SULFATE 10 MG/ML 5 ML VIAL IV ONE (12:21)
[2023-01-20] MEDS ORDERED: HEPARIN SOD (PORCINE) 1000 UNIT/ML ONE (12:21)
[2023-01-20] MEDS ORDERED: SUGAMMADEX SODIUM 200 MG/2 ML VIAL IV ONE (12:21)
[2023-01-20 12:35] LABS: Partial Thromboplastin Ratio 1.1; Prothrombin Time 10.8 Seconds (9.0-12.0)
--- NOTE | 2023-01-20 13:02 | History & Physical Bridge Note ---
Date of Service January 20, 2023 History & Physical Bridge Note I have examined the patient, reviewed the History & Physical and in the interval since the performance of the History & Physical I have noted the following changes of clinical significance: no changes noted
[2023-01-20] MEDS ORDERED: THROMBIN FOR SOLN 20000 UNIT KIT ONE (13:20)
[2023-01-20] MEDS ORDERED: ceFAZolin 330 MG/ML 1 GM VIAL ONE (13:20)
[2023-01-20] MEDS ORDERED: GELATIN SPONGE SZ 100 ONE (13:20)
[2023-01-20] MEDS ORDERED: BUPIVACAINE/EPINEPHRINE 0.5% MPF 1:200,000 30 ML VIAL ONE (13:20)
[2023-01-20] MEDS ORDERED: LABETALOL HCL IV 5 MG/ML 20ML IV ONE (15:42)
[2023-01-20] MEDS ORDERED: ESMOLOL HCL INJ 10 MG/ML 10ML VIAL IV ONE (15:42)
[2023-01-20] MEDS ORDERED: LABETALOL HCL IV 5 MG/ML 20ML IV PRN (16:04)
--- NOTE | 2023-01-20 16:06 | Procedure Note ---
Post Operative Report Pre & Post Diagnosis Operation Date: 01/20/23 13:00 Pre-Op Diagnosis: Stenosis of left internal carotid artery Post-Op Diagnosis: Stenosis of left internal carotid artery I identified the patient and participated in the time-out.: Yes Procedure Operation Date: 01/20/23 13:00 Actual Procedures p Left Transcarotid Artery Revascularization(Left), ultrasound localization of the right common femoral vein- Celso Aiken MD Surgeon Celso Aiken MD Wine [employer] Spir[employer] Clerk None Estimated Blood Loss 20 Findings Consistent with Post-Op Diagnosis Specimens None Anesthesia Type General Complications none Disposition Accompanied Patient To Recovery: No Disposition: Recovery Room Indications This is a 62-year-old female was found to have severe stenosis of her carotid arteries. She underwent an uneventful right TCAR earlier this year. She is now admitted for TCAR of her left carotid. I have discussed the risks options and benefits of the procedure with the patient. The patient understands the risks options and benefits and agrees to the procedure. Description of Procedure The patient was taken to the operating room and placed in supine position. After general anesthesia was accomplished the groins and left side of the neck and chest were prepped and draped in a sterile manner. Timeout was performed and the patient was identified. A transverse incision was made just above the clavicle between the heads of the sternocleidomastoid. This was carried down to where the common carotid artery was identified. It was isolated and slung with an umbilical tape. It was given 8000units of heparin at that time. ACT was 249 we therefore gave another 2000 of heparin. Ultrasound was then used to localize the right common femoral vein. The vein was patent and compressed easily. Under ultrasound guidance the left common femoral vein was punctured and the venous sheath was inserted. This was aspirated and flushed with heparinized mariah ine. An ACT at that time was over 300. Using micropuncture technique the common carotid artery was punctured. The micro sheath was inserted to 3 cm. Injection was then done showing the bifurcation. There was a significant lesion seen at the origin of the internal carotid artery on the right side. We then inserted the J-wire and keep it short of the bifurcation of the carotid artery. The TCAR sheath was inserted. Once it was in place and held against the artery it was sutured to the chest wall and the incision edge. We then flushed the tubing appropriately. The venous return tubing was clamped onto the TCAR sheath. It was flushed through and then attached to the venous inflow sheath in the left groin. The sheath was checked for flow. The flow reversal tubing was checked for flow. Good flow was noted. The carotid artery was then clamped proximally and the flow reversal tubing again checked for adequate flow reversal. Adequate flow reversal was seen. We then inserted a 5 x 3 balloon backloaded on the wire. The internal carotid artery cannot be cannulated with just the wire. We then remove the balloon and inserted a Kumpe catheter. With the use of the Kumpe catheter we did then were able to pass the wire into the internal carotid artery up to the siphon. The 5 x 35 balloon was then inserted. The 5 balloon was then advanced to the lesion. The lesion was then predilated with the 5 mm balloon. The balloon was removed. We then inserted the 9 x 40 stent. This was deployed across the lesion without difficulty. The catheter was removed. The carotid was allowed to go 2 minutes with flow reversal. Completion angiogram was done at that time which showed no residual stenosis. A that point the common carotid artery was unclamped. The venous return tubing was clamped and removed from the TCAR sheath. The blood was allowed to flow back into the venous system. Once this was completed the sheath was pulled from the groin and pressure was applied. The TCAR sheath was then removed and the 5-0 Prolene suture securely tied. Hemostasis was noted of the puncture site. Wound was irrigated with Ancef solution. Adequate hemostasis was obtained of the wound. Once this was noted the wound was closed in usual fashion using a 3-0 Vicryl suture for the subcutaneous layer and a 4-0 subcuticular Vicryl suture for the skin edges. Dermabond was used for dressing.The patient left the operation room in satisfactory condition and tolerated the procedure well. All needle and sponge counts were correct at the end of the procedure. I attest to the content of the Intraoperative Record and any orders documented therein. Any exceptions are noted below.
--- NOTE | 2023-01-20 16:21 | Anesthesiology Progress Note ---
Date of Service January 20, 2023 Anesthesia Post Procedure Vital Signs Vital Signs: Temp Pulse Pulse Resp BP BP BP 01/20/23 16:15 81 14 93/68 L 145/50 H 01/20/23 16:05 80 15 106/61 148/54 H 01/20/23 15:55 79 14 94/66 L 156/54 H 01/20/23 15:45 36.3 C L 74 18 131/75 162/57 H 01/20/23 11:27 01/20/23 11:27 36.8 C 78 18 107/65 159/73 H Pulse Ox O2 Del Method O2 Flow Rate 01/20/23 16:15 91 Nasal Cannula 5 01/20/23 16:05 90 Nasal Cannula 4 01/20/23 15:55 96 Oxymask 6 01/20/23 15:45 99 Oxymask 6 01/20/23 11:27 Room Air, Nasal Cannula 01/20/23 11:27 95 Room Air, CPAP Pain Intensity Left Neck: Pain Intensity: 3 Transfer of Care Handoff Completed per policy Notes Mental Status: alert / awake / arousable and participated in evaluation Patient Amnestic to Procedure: Yes Nausea / Vomiting: adequately controlled Pain: adequately controlled Airway Patency, RR, SpO2: stable & adequate BP & HR: stable & adequate Hydration State: stable & adequate Anesthetic Complications: no major complications apparent and Pt Satisfied with anesthetic care
[2023-01-20] MEDS ORDERED: DOXYCYCLINE HYCLATE 100 MG CAP PO SCH ×2 (17:00→21:00)
[2023-01-20] MEDS ORDERED: MOMETASONE FUROATE 0.1% CR 15 GM TUBE EXT PRN (17:34)
[2023-01-20] MEDS ORDERED: hydrOXYzine HCl 25 MG TAB PO PRN (17:34)
[2023-01-20] MEDS ORDERED: ALBUTEROL 0.5% NEB SOLN 2.5 MG/0.5 ML VIAL INH PRN (17:34)
[2023-01-20] MEDS ORDERED: MoRPHine SULFATE 4 MG/ML 1 ML CARP\\VIAL IV PRN (17:34)
[2023-01-20] MEDS ORDERED: NITROGLYCERIN SL 0.4 MG/TAB TAB SL PRN (17:34)
[2023-01-20] MEDS ORDERED: GABAPENTIN 800 MG TAB PO SCH ×2 (17:34→21:00)
[2023-01-20] MEDS ORDERED: ALBUTEROL HFA 8 GM INHALER INH PRN (17:34)
[2023-01-20] MEDS ORDERED: SUCRALFATE 1 GM TAB PO PRN (17:34)
[2023-01-20] MEDS ORDERED: guaiFENesin 600 MG TABCR PO PRN (17:34)
[2023-01-20] MEDS: LACTATED RINGER'S 1,000 ML IV SCH ×2 (20:10→23:36)
[2023-01-20] MEDS: BENZONATATE 100 MG CAPSULE PO PRN (20:11)
[2023-01-20] MEDS: oxyCODONE HCL IR 5 MG TAB (IMMEDIATE RELEASE) PO PRN (20:11)
[2023-01-20] MEDS: busPIRone 5 MG TAB PO SCH (20:13)
[2023-01-20] MEDS: METOPROLOL SUCC 25MG EXT REL TAB PO SCH (20:26)
[2023-01-20] MEDS: oxyBUTYnin chloride 5 MG TAB PO SCH (20:26)
[2023-01-20] MEDS: DULoxetine HCL 60 MG CAP PO SCH (20:26)
[2023-01-20] MEDS: METHOCARBAMOL 500 MG TABLET PO SCH (20:27)
[2023-01-20] MEDS: APIXABAN 5 MG TABLET PO SCH (20:27)
[2023-01-20] MEDS: FERROUS SULFATE 325 MG TAB PO SCH (20:29)
[2023-01-20] MEDS: MAGNESIUM OXIDE 400 MG TAB PO SCH (20:29)
[2023-01-20] MEDS: NYSTATIN POWDER 15GM BTL EXT SCH (20:31)
[2023-01-20] MEDS: PANTOprazole 40 MG TAB PO SCH (20:31)
[2023-01-20] MEDS ORDERED: EZETIMIBE 10 MG TABLET PO SCH (21:00)
[2023-01-20] MEDS ORDERED: traZODone HCL 100 MG TAB PO SCH (21:00)
[2023-01-20] MEDS ORDERED: PRAVASTATIN SOD 40 MG TAB PO SCH (21:00)
[2023-01-20] MEDS ORDERED: CLOTRIMAZOLE/BETAMETHASONE CR 15 GM TUBE EXT SCH (21:00)
[2023-01-20] MEDS ORDERED: CETIRIZINE HCL 10 MG TABLET PO SCH (21:00)
[2023-01-20] MEDS: CLOBETASOL~ORDER AWAITING ACTION SCH (23:37)
[2023-01-21] MEDS: BENZONATATE 100 MG CAPSULE PO PRN ×2 (06:19→13:43)
[2023-01-21] MEDS ORDERED: LEVOTHYROXINE SODIUM 75 MCG TABLET PO SCH (06:30)
[2023-01-21] MEDS ORDERED: LEVOTHYROXINE SODIUM 200 MCG TABLET PO SCH (06:30)
[2023-01-21] MEDS: PANTOprazole 40 MG TAB PO SCH (08:45)
[2023-01-21] MEDS: CLOBETASOL~ORDER AWAITING ACTION SCH (08:45)
[2023-01-21] MEDS: METOPROLOL SUCC 25MG EXT REL TAB PO SCH (08:46)
[2023-01-21] MEDS: busPIRone 5 MG TAB PO SCH ×2 (08:46→13:43)
[2023-01-21] MEDS: MAGNESIUM OXIDE 400 MG TAB PO SCH ×2 (08:46→13:43)
[2023-01-21] MEDS: DULoxetine HCL 60 MG CAP PO SCH (08:47)
[2023-01-21] MEDS: FERROUS SULFATE 325 MG TAB PO SCH (08:47)
[2023-01-21] MEDS: APIXABAN 5 MG TABLET PO SCH (08:48)
[2023-01-21] MEDS: oxyBUTYnin chloride 5 MG TAB PO SCH (08:48)
[2023-01-21] MEDS: METHOCARBAMOL 500 MG TABLET PO SCH ×2 (08:48→13:43)
[2023-01-21] MEDS: GABAPENTIN 800 MG TAB PO SCH ×2 (08:49→13:43)
[2023-01-21] MEDS: NYSTATIN POWDER 15GM BTL EXT SCH (08:50)
[2023-01-21] MEDS: LACTATED RINGER'S 1,000 ML IV SCH (08:51)
[2023-01-21] MEDS ORDERED: FLUTICASONE FUROATE 100MCG 14 PUFFS/INHALER INH SCH (09:00)
[2023-01-21] MEDS ORDERED: UMECLIDINIUM/VILANTEROL 62.5/25MCG 7 PUFFS/INHALER INH SCH (09:00)
[2023-01-21] MEDS ORDERED: CYANOCOBALAMIN (B-12) 500 MCG TABLET PO SCH (09:00)
[2023-01-21] MEDS ORDERED: ASPIRIN 81 MG ECTAB PO SCH (09:00)
[2023-01-21] MEDS ORDERED: NON-FORMULARY MEDICATION (Fluticasone-Umeclidin-Vilanter [Trelegy Ellipta] 100-62.5-25 mcg INH SCH (09:00)
[2023-01-21] MEDS ORDERED: FOLIC ACID 1 MG TAB PO SCH (09:00)
[2023-01-21] MEDS ORDERED: CLOPIDOGREL BISULFATE 75 MG TAB PO SCH (09:00)
[2023-01-21] MEDS ORDERED: MONTELUKAST SODIUM 10 MG TABLET PO SCH (09:00)
[2023-01-21] MEDS ORDERED: SODIUM CHLORIDE 0.65% NA SOLN 45 ML (OCEAN) ONE ×2 (09:15→09:19)
[2023-01-21] MEDS: oxyCODONE HCL IR 5 MG TAB (IMMEDIATE RELEASE) PO PRN (09:21)
--- NOTE | 2023-01-21 12:51 | Surgery Progress Note ---
Date of Service January 21, 2023 Assessment & Plan (1) Stenosis of left internal carotid artery: Plan: Pt now POD #1 after L TCAR, doing well overall. No new neurological symptoms. Issue with food feeling slightly "stuck" may be related to previous esophageal strictures, and is easily resolved at this time by frequent drinks. No choking on food or drink. Recommend pt discuss with her PCP. Pain overall well controlled. Discussed wtih Dr Aiken. Ok for d/c home today. WIll see in office in 2 weeks. Admission and Anticipated Discharge Date Admission Date: January 20, 2023 Subjective 59 YO f pod #1 after L TCAR, seen in f/u today. Pt admits some pain in L neck, near incision. Also admits a feeling that her food gets a little "stuck" when eating, but no choking. States she was able to eat all of her breakfast and lunch, just took frequent drinks. States it feels like previous times when she had to have her esophagus stretched, but not as bad. No other new complaints. Review of Systems Review of Systems: All systems reviewed & are unremarkable except as noted in HPI & below Physical Exam Constitutional: WD/WN, vitals as above + obese, cooperative and comfortable; not in distress Neck: trachea midline L supraclavicular incision C/D/I. Moderate local soft ecchymosis, no hematoma. Neck soft without edema. Respiratory: normal respiratory effort, lungs clear to auscultation Auscultation: + diminished lung sounds Cardiovascular: Rate/Rhythm: + irregularly irregular Vessels: posterior tibial pulses present, dorsalis pedis pulses present and radial pulses present; + abnormal peripheral pulses Extremities: normal capillary refill Gastrointestinal (Abdomen): Inspection/Auscultation: abdomen normal to inspection and normal bowel sounds Percussion/Palpation: abdomen soft; abdomen nontender Musculoskeletal: no cyanosis or clubbing, extremities motor strength 5/5 Skin: no rashes, warm and dry Neurologic: moves all extremities and awake; no focal motor deficits and not confused Psychiatric: A+Ox3, euthymic affect Results & Data Vital Signs (Past 12 Hours) Vital Signs Temp Pulse Resp BP Pulse Ox O2 Del Method O2 Flow Rate 01/21/23 11:01 69 14 96 01/21/23 11:00 76 22 89 L 01/21/23 10:45 77 21 92 01/21/23 10:30 69 13 92 05 10:15 70 18 94 01/21/23 10:02 67 17 94 01/21/23 10:02 101/57 L 01/21/23 10:00 68 19 95 01/21/23 09:45 75 23 95 01/21/23 08:00 Room Air 01/21/23 09:30 72 19 94 01/21/23 09:15 80 19 91 01/21/23 09:00 73 25 H 92 01/21/23 08:45 74 20 95 01/21/23 08:30 68 15 90 01/21/23 08:15 70 15 91 01/21/23 08:00 69 19 93 01/21/23 08:00 75/50 L 01/21/23 07:45 79 19 95 Room Air 01/21/23 07:15 71 16 100 Nasal Cannula 4 01/21/23 07:01 72 18 99 01/21/23 07:01 76/50 L 01/21/23 07:00 71 14 99 01/21/23 06:45 70 13 99 01/21/23 06:30 70 17 100 01/21/23 06:15 70 16 98 01/21/23 06:00 71 14 98 01/21/23 06:00 102/56 L 01/21/23 05:00 72 21 92 01/21/23 04:01 36.4 C L 92/54 L 01/21/23 04:01 73 15 98 01/21/23 04:00 71 15 98 01/21/23 03:00 77 20 99 01/21/23 02:00 69 14 99 01/21/23 02:00 98/62 L 01/21/23 01:00 70 14 97 01/21/23 01:00 98/58 L
== END 2023-01-21 14:46 | disposition home or self-care (01) | DRG 36 ==
LOC: ASU 10:47 → 1E 10:48
PROC: EV.TCAR (2023-01-20 13:00)

== ENCOUNTER 2024-03-30 14:32 | Inpatient (IN) ==
[2024-03-30] MEDS ORDERED: SODIUM CHLORIDE 0.9% 250 ML IV PRN ×3 (14:54→16:36)
--- NOTE | 2024-03-30 14:54 | ED Triage Note ---
Date of Service March 30, 2024 Provider in Triage Author: Rg Fagan History of Present Illness This patient was briefly evaluated while in triage. An abbreviated physical exam was performed. This patient is a 63-year-old Female who presents to the ED for evaluation Hgb 6.3 on labs done earlier today sent by PCP had transfusion at [facility] at the end of January for anemia, unclear source, but they suspect GI on Eliquis, Plavix and ASA Physical Exam GENERAL: NAD in wheelchair CARDIOVASCULAR: RRR RESPIRATORY: CTA ABDOMEN: BS x 4. Nontender to palpation. Initial orders for labs and / or imaging were placed and patient was placed in the waiting area until a bed is available. Please see further documentation for the full ED course.
[2024-03-30 15:56] LABS: Appearance Urine Cloudy (Clear); Bacteria Urine Automated 2+ (None Seen); Bilirubin Urine Negative (Negative); Blood Urine Negative (Negative); Cast Urine Automated 0-2 /lpf (0-2); Color Urine Yellow; Glucose Urine UA Negative (Negative); Ketones Urine Negative (Negative); Leukocyte Esterase Urine 2+ (Negative); Nitrite Urine Negative (Negative); Protein Urine Negative (Negative); RBC Urine Automated 0-2 /hpf (0-2); Specific Gravity Urine 1.025 (1.000-1.030); Urobilinogen Urine Negative (Negative); pH Urine 5.5 (4.5-7.5)
[2024-03-30 15:57] LABS: Hematocrit (blood only) 21.8 % (37.0-47.0); Hemoglobin 6.2 g/dl (12.0-16.0); Mean Corpuscular Hgb Conc 28.4 g/dL (32.0-36.0); Mean Corpuscular Volume 80.7 fL (80.0-100.0); Mean Platelet Volume 9.6 fL (9.4-12.4); Platelet Count 333 K/uL (130-400); RDW Coefficient of Variation 16.9 % (11.5-14.5); RDW Standard Deviation 49.9 fL (36.4-46.3); White Blood Count 10.34 K/ul (4.8-10.8)
[2024-03-30 16:05] LABS: Basophils # (auto) 0.05 K/uL (0.00-0.20); Basophils % (auto) 0.5 %; Eosinophils # (auto) 0.17 K/uL (0.00-0.50); Eosinophils % (auto) 1.6 %; Immature Granulocytes # (auto) 0.06 K/uL (0.01-0.20); Immature Granulocytes % (auto) 0.6 %; Lymphocytes # (auto) 2.38 K/uL (1.20-3.40); Monocytes # (auto) 0.87 K/uL (0.11-0.59); Monocytes % (auto) 8.4 %; Neutrophils # (auto) 6.81 K/uL (1.40-6.50); Neutrophils % (auto) 65.9 %; Stomatocytes 2+
[2024-03-30 16:13] LABS: Alanine Aminotransferase 9 U/L (7-52); Albumin Globulin Ratio 1.4 (0.9-2); Albumin Level 3.9 gm/dl (3.4-5.0); Alkaline Phosphatase 46 U/L (34-104); Anion Gap 6 (3-11); Aspartate Aminotransferase 13 U/L (13-39); BUN Creatinine Ratio 22.7 (10-20); Bilirubin,Total 0.2 mg/dl (0.2-1.0); Blood Urea Nitrogen 20 mg/dl (6-23); Calcium 8.8 mg/dl (8.6-10.3); Carbon Dioxide 31 mmol/L (21-32); Chloride 99 mmol/L (98-107); Est GFR (African American) 79.9 ml/min; Est GFR (Non-African American) 68.9 ml/min; Globulin 2.7 gm/dl (2.5-4.0); Glucose 96 mg/dl (70-99(Fasting)); Potassium 4.5 mmol/L (3.5-5.1); Sodium 136 mmol/L (136-145); Total Protein 6.6 gm/dl (6.0-8.3)
[2024-03-30 16:16] LABS: Prothrombin Time 10.8 Seconds (9.0-12.0)
[2024-03-30 16:20] LABS: Troponin I High Sensitivity 5.8 pg/ml (0-14)
[2024-03-30 16:29] LABS: Thyroid Stimulating Hormone 0.275 uIu/ml (0.300-4.500)
--- NOTE | 2024-03-30 16:42 | Emergency Department Note ---
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 She notes since this weekend she has been getting exertional chest pain and shortness of breath. This has been getting worse. She feels very weak and rundown. This feels similar to what she has had before in the past. She denies any headache or change in vision. No chest pain or shortness of breath currently at this moment. ADDITIONAL HISTORY OBTAINED: Per HPI Chronic Medical/Social Conditions Affecting Care: Per HPI PAST MEDICAL HISTORY:See Below PAST SURGICAL HISTORY:See Below FAMILY HISTORY:See Below SOCIAL HISTORY:See Below HOME MEDICATIONS:See Below ALLERGIES:See Below VITALS:See Below PHYSICAL EXAMINATION: GENERAL: Sitting up in bed, alert, well appearing, well nourished, no distress, non-toxic EYE EXAM: normal conjunctiva. OROPHARYNX: no exudate, no erythema, lips, buccal mucosa, and tongue normal and mucous membranes are moist NECK: supple, no nuchal rigidity, no adenopathy, non-tender LUNGS: Clear to auscultation. Normal chest wall mechanics HEART: no murmurs, S1 normal and S2 normal ABDOMEN: abdomen soft, non-tender, normo-active bowel sounds, no masses, no rebound or guarding. BACK: Back is symmetrical on inspection and there is no deformity, no midline tenderness, no CVA tenderness. SKIN: no rashes and no bruising UPPER EXTREMITIES: upper extremities are grossly normal. LOWER EXTREMITIES: No pitting edema. NEURO EXAM: Normal sensorium, cranial nerves II-XII grossly intact, normal speech, no gross weakness of arms, no gross weakness of legs. MEDICAL DECISION MAKING: Patient is a 63-year-old female who presents ER for above-stated complaint. IV was established blood work was obtained. Labs show no significant leukocytosis. Mild anemia at 6.2 which trended down from 10. Platelets were unremarkable. INR unremarkable. BMP with no significant elevation in BUN. LFTs bilirubin was unremarkable. Troponin negative. UA slightly contaminated. No urinary symptoms. Will not treat. Patient was typed and crossed and ordered 2 units of PRBCs while in the ER. I consented her at bedside. Discussed case with the hospitalist for further evaluation management treatment. Consults/Care Managements Discussions: Per [facility] Triage Nursing notes reviewed. Limited review of prior medical records performed Vital Signs: reviewed and remarkable for no significant abnormalities Differential diagnosis: Diverticulosis, AVM, coagulopathy, colitis, inflammatory bowel disease, malignancy, Leonela-Neal tear, esophagitis, peptic ulcer disease, variceal bleed, gastritis, epistaxis, fissure, hemorrhoids, as well as other pathologies. ER treatment provided: See below Diagnostics interpreted by me include EKG and cardiac monitoring as listed below: -Cardiac Monitoring: An order was placed for continuous cardiac monitoring. The monitor shows a rate of 80 with sinus rhythm. -ECG: Sinus rhythm rate of 77 Normal axis No PVCs QTc 434 -Laboratory studies:Interpreted by me as stated above in MDM and shown below. Imaging studies: Xrays: As interpreted by me:none CTs show: none Procedures:none Critical Care: I have personally spent 35 minutes of critical care time in the direct management of this patient. This includes bedside care, interpretation of diagnostic studies, and testing, discussion with consultants, patient, and family members, and other required patient management activities. This 35 minutes is in excess of all separately billable procedures. Past Med/Surg History Problem List (Updated 03/30/24 @ 20:37 by Brigido Davison DO) Chest pain, exertional (Acute) Symptomatic anemia (Acute) Insomnia Migraines Stenosis of left internal carotid artery Bilateral carotid artery stenosis Incontinence Ulnar neuropathy at elbow of left upper extremity Cervical radiculopathy Esophageal dysphagia Ataxia Chronic antibiotic suppression Subjective memory complaints Diabetic peripheral neuropathy Neurogenic claudication due to lumbar spinal stenosis Chronic anticoagulation (Acute) " CLOTTING PROBLEM' x 5 YRS F/U DR PATTERSON Lumbar spondylosis Chronic low back pain Gastritis Hypomagnesemia (Acute) Chronic diarrhea Thoracic spinal stenosis Dysfunction of right eustachian tube Dermatitis of both ear canals Degenerative joint disease of shoulder BILATERAL Sensorineural hearing loss (SNHL) of both ears (Chronic) Degenerative cervical spinal stenosis (Chronic) Pulsatile tinnitus (Chronic) Lumbar disc disease (Chronic) Failed back syndrome (Chronic) Osteoarthritis (Chronic) On home oxygen therapy (Chronic) 5L/MIN NC HS History of left common carotid artery stent placement (01/20/23) History of TIA (transient ischemic attack) Type 2 diabetes mellitus Severe sleep apnea 3L oxygen via N/C- (WAITING ON CPAP DEVICE) Follows with pulm Psoriatic arthritis No meds at this time- follows with rheum Obesity hypoventilation syndrome Morbid obesity BMI 43.2 Hypothyroidism (acquired) S/p thyroidectomy 2015 (final pathology negative for malignancy) Hypertension Hyperlipidemia controlled per pt GERD (gastroesophageal reflux disease) Diabetic neuropathy Depression Coronary artery disease Minor nonobstructive CAD per September 2012 cath per cardio records No hx stents or angioplasty COPD (chronic obstructive pulmonary disease) rare res inh use per pt > more fall season Chronic interstitial cystitis Chronic hyponatremia Anxiety Anemia Allergic rhinitis AF (paroxysmal atrial fibrillation) Takes Master, follows with Dr. Plaza, no pacer NO HX CARDIOVERSION Medical History Impaired ambulation Clotting disorder TIA (transient ischemic attack) History of seizures Diffuse myofascial pain syndrome Meralgia paresthetica of right side Mixed hearing loss of right ear History of MT (myocardial infarction) (2009) Personal history of pulmonary embolism (2014) Personal history of skin cancer Carotid artery narrowing Hx of thyroid cancer Hx of deep venous thrombosis Surgical History History of right common carotid artery stent placement (12/01/22) History of tonsillectomy H/O colonoscopy with polypectomy History of cystoscopy History of incision and drainage S/P lumbar fusion History of esophagogastroduodenoscopy (EGD) H/O cataract extraction S/P dilatation and curettage S/P section History of thyroidectomy, total (2015) History of knee replacement History of placement of ear tubes History of cervical spinal surgery History of breast biopsy History of appendectomy History of back surgery History of cardiac cath Family History Mother Diabetes Family history of diabetes mellitus Cardiac disorder Heart trouble Myocardial infarction Renal failure Family history of reaction to anesthesia Hypertension Stroke Gallbladder disease Grandfather Family hx of colon cancer Myocardial infarction Father Colon cancer Cardiac disorder Kidney stones Heart trouble Myocardial infarction Degenerative disc disease Lung disease Hypertension Stroke Aunt Colon cancer Diabetes Grandmother (Maternal) Degenerative disc disease Cancer Sister Diabetes Family history of diabetes mellitus Breast cancer Cancer Hypertension Gallbladder disease Family/Other Kidney disease Brother Multiple sclerosis Uncle Myocardial infarction Grandfather (Maternal) Family history of diabetes mellitus Aunt Diabetes Aunt Diabetes Aunt Diabetes Aunt Diabetes Aunt Diabetes Other Dementia Denies family history of Ovarian cancer Prostate cancer Adverse effect of anesthesia Bleeding disorder Social History Smoking Status: Never smoker Tobacco Type: E-cigarettes / Vaping Age Started Using Tobacco: 12; packs per day: 0.5; Cigarettes Per Day: advised npo status; Second Hand Exposure: No; Do You Dip or Chew Tobacco: No; Hx Alcohol Use: No Hx Substance Use: No Preferred Language: Sinhala Communication Ability: Effective Visual Impairment: Limited Hearing Ability: Hard of Hearing Pyrotechnist Required: No Beliefs That Will Affect Care: None marital status: Current Living Situation: Spouse Current Living Situation Comment: AND SON current occupational status: unemployed How many Children do You have: 2 Feels Safe at Home: Yes Childhood Exposure to Second-Hand Smoke: Yes (father smoked) Diet: regular Diet Comment: regular caffeine: Yes during the past year weight has: increased > 10 lbs Dental Care, Regularly: Yes Physical Activity Frequency: Does not Exercise Physical Activity Frequency Comment: LIMITED BY PHYSICAL CONDITION Seatbelt Use: always Sunscreen Use: Yes Assistive Devices: Cane, Denture - Upper, Denture - Lower, Glasses and Oxygen - at Night Allergies Allergies Allergy/AdvReac Type Severity Reaction Status Date / Time bee pollen Allergy Severe Anaphylaxis Verified 03/30/24 16:55 fentanyl Allergy Severe Severe Verified 03/30/24 16:55 sedation, resp depression (only with patches) Penicillins Allergy Severe Anaphylaxis Verified 03/30/24 16:55 pregabalin Allergy Severe Shortness Verified 03/30/24 16:55 of breath honey Allergy Intermediate Hives Verified 03/30/24 16:55 adhesive Allergy Mild Blister Verified 03/30/24 16:55 (wipe some plastic tape) oxcarbazepine AdvReac Severe Severe Verified 03/30/24 16:55 [From Trileptal] stomach issues sulfamethoxazole AdvReac Severe Severe Verified 03/30/24 16:55 nausea trimethoprim AdvReac Severe Severe Verified 07/12/24 16:55 nausea buprenorphine [From Suboxone] AdvReac Intermediate Vomiting, Verified 03/30/24 16:55 skin problems clindamycin AdvReac Intermediate Diarrhea Verified 03/30/24 16:55 fluticasone AdvReac Intermediate Severe Verified 03/30/24 16:55 thrush ketorolac AdvReac Intermediate Migraine Verified 03/30/24 16:55 levofloxacin [From Levaquin] AdvReac Intermediate IBS ("can Verified 03/30/24 16:55 only tolerate for 5 days") naloxone [From Suboxone] AdvReac Intermediate Severe Verified 03/30/24 16:55 nausea, SKIN PROBLEMS ondansetron [From Zofran] AdvReac Intermediate Migraine Verified 03/30/24 16:55 saccharin [From Sweeta] AdvReac Intermediate Severe Verified 03/30/24 16:55 vomiting salmeterol AdvReac Intermediate Severe Verified 03/30/24 16:55 thrush cephalexin AdvReac Mild Nausea Verified 03/30/24 16:55 Home Meds Home Medications Medication Instructions Recorded Confirmed doxycycline hyclate 100 mg capsule 100 mg PO QPM 06/17/21 03/30/24 guaifenesin 1,200 mg tablet, 1,200 mg PO Q12H PRN Nasal 11/11/21 03/30/24 extended release 12 hr (Mucinex) Congestion aspirin 81 mg capsule 81 mg PO QAM 12/01/22 03/30/24 cholecalciferol (vitamin D3) 250 500 mcg PO DAILY 01/24/23 03/30/24 mcg (10,000 unit) tablet Oxygen Home 05/17/23 03/26/24 adalimumab 40 mg/0.8 mL 40 mg subcut Q14D 05/17/23 03/30/24 subcutaneous syringe kit clopidogrel 75 mg tablet (Plavix) 75 mg PO QAM 10/26/23 03/30/24 oxybutynin chloride 5 mg tablet 5 mg PO BID 10/26/23 03/30/24 rimegepant 75 mg disintegrating 75 mg PO .COMPLEX PRN Migraine 10/26/23 03/30/24 tablet (Nurtec ODT) Headache valacyclovir 1 gram tablet 1,000 mg PO TID PRN NEEDED 03/26/24 03/30/24 (Valtrex) Previous Rx's Medication Instructions Recorded Hospital Bed Homecare (Hospital #1 ea 11/14/19 Bed) [facility] Verio [facility] 06/19/21 Lancets) albuterol sulfate 2.5 mg/0.5 mL 2.5 mg (0.5 mL) inhalation QID PRN 07/13/21 solution for nebulization Wheezing #30 ea CPAP Machine #1 ea 08/02/22 mometasone 0.1 % topical cream 1 applic topical DAILY PRN 10/22/22 allergic reaction #15 grams cyanocobalamin (vitamin B-12) 500 1,000 mcg (2 x 500 mcg) PO DAILY 03/15/23 mcg tablet #60 tabs blood sugar diagnostic #100 ea 05/12/23 betamethasone dipropionate 0.05 % 1 applic topical BID PRN skin 05/25/23 topical cream irritation #45 grams duloxetine 60 mg capsule,delayed 60 mg PO BID #60 caps 07/01/23 release (Cymbalta) metoprolol succinate 25 mg 25 mg PO BID #180 tabs 08/19/23 tablet,extended release 24 hr montelukast 10 mg tablet 10 mg PO QAM #90 tabs 11/10/23 (Singulair) albuterol sulfate 90 mcg/actuation 2 puff inhalation Q6H PRN Wheezing 11/22/23 aerosol inhaler #18 grams clobetasol 0.05 % lotion 1 applic topical BID PRN itching 2 11/22/23 weeks #59 mL clobetasol 0.05 % topical cream 1 applic topical BID PRN rash #60 11/22/23 grams fluticasone fur. 100 mcg-umeclid 1 inh inhalation QAM #60 ea 11/22/23 62.5 mcg-vilant 25 mcg inhalat.powder (Trelegy Ellipta) ezetimibe 10 mg tablet (Zetia) 10 mg PO HS #90 tabs 12/09/23 pravastatin 40 mg tablet 40 mg PO HS #90 tabs 12/09/23 semaglutide 1 mg/dose (4 mg/3 mL) 1 mg (0.75 mL) subcut WK #3 mL 12/22/23 subcutaneous pen injector (Ozempic) hydroxyzine pamoate 25 mg capsule 25 mg PO TID PRN Anxiety #60 caps 01/02/24 (Vistaril) levothyroxine 200 mcg tablet 200 mcg PO QAM #90 tabs 01/09/24 trazodone 100 mg tablet 300 mg (3 x 100 mg) PO HS 90 days 01/12/24 #270 tabs esomeprazole magnesium 40 mg 40 mg PO BID #180 caps 01/26/24 capsule,delayed release (Nexium) folic acid 1 mg tablet 1 mg PO QAM #90 tabs 01/26/24 levocetirizine 5 mg tablet (Xyzal) 5 mg PO HS #90 tabs 01/26/24 silver sulfadiazine 1 % topical 1 applic topical DAILY PRN wound 01/26/24 cream (Silvadene) healing #50 grams apixaban 5 mg tablet (Eliquis) 5 mg PO BID #90 tabs 02/01/24 buspirone 10 mg tablet See Rx Instructions .Route 02/01/24 .COMPLEX #405 tabs gabapentin 800 mg tablet 800 mg PO UD #105 tabs 02/01/24 sucralfate 1 gram tablet (Carafate) 1 g PO BID PRN Acid Reflux #60 tabs 02/01/24 epinephrine 0.3 mg/0.3 mL 0.3 mg (0.3 mL) IM Q10M PRN 02/10/24 injection, auto-injector (EpiPen anaphylaxis #2 ea 2-Manny) nitroglycerin 0.4 mg sublingual 0.4 mg sublingual UD PRN Pain #25 02/10/24 tablet (Nitrostat) tabs magnesium oxide 400 mg PO TID #270 tabs 02/15/24 oxycodone 10 mg tablet 10 mg PO Q8H PRN pain, severe #90 03/13/24 tabs benzonatate 200 mg capsule 200 mg PO BID PRN cough #30 caps 03/19/24 clotrimazole-betamethasone 1 1 applic topical BID #45 grams 03/26/24 %-0.05 % topical cream methocarbamol 500 mg tablet 1,000 mg (2 x 500 mg) PO QID 30 03/27/24 days #240 tabs nystatin 100,000 unit/gram topical 1 applic topical BID #30 grams 03/27/24 powder Results & Data (ED) Vital Signs Vital Signs - 24 hr 03/30/24 14:52 03/30/24 16:36 Temperature 36.9 C Temperature Source Temporal Artery Scan Pulse Rate 86 Respiratory Rate 18 Respiratory Depth Normal Blood Pressure 116/68 Blood Pressure Mean 84 Pulse Oximetry 95 96 Oxygen Delivery Method Room Air Room Air Sepsis Recent Fever Within 48 Hours No Sepsis New/Unexplained Change in Mental Status No Sepsis Action Taken by Nursing No Action Required Laboratory Data 03/30/24 15:26 03/30/24 15:26 Lab Results 03/30/24 03/30/24 Range/Units 15:26 15:35 WBC 10.34 (4.8-10.8) K/ul RBC 2.70 L (4.20-5.40) M/uL Hgb 6.2 L* (12.0-16.0) g/dl Hct 21.8 L (37.0-47.0) % MCV 80.7 (80.0-100.0) fL MCH 23.0 L (25.0-34.0) pg MCHC 28.4 L (32.0-36.0) g/dL RDW Std Deviation 49.9 H (36.4-46.3) fL RDW Coeff of Donald 16.9 H (11.5-14.5) % Plt Count 333 (130-400) K/uL MPV 9.6 (9.4-12.4) fL Immature Gran % (Auto) 0.6 % Neut % (Auto) 65.9 % Lymph % (Auto) 23.0 % [place] % (Auto) 8.4 % Eos % (Auto) 1.6 % Baso % (Auto) 0.5 % Neut # (Auto) 6.81 H (1.40-6.50) K/uL Lymph # (Auto) 2.38 (1.20-3.40) K/uL [place] # (Auto) 0.87 H (0.11-0.59) K/uL Eos # (Auto) 0.17 (0.00-0.50) K/uL Baso # (Auto) 0.05 (0.00-0.20) K/uL Immature Gran # (Auto) 0.06 (0.01-0.20) K/uL Stomatocytes 2+ PT 10.8 (9.0-12.0) Seconds INR 1.0 (0.9-1.1) Sodium 136 (136-145) mmol/L Potassium 4.5 (3.5-5.1) mmol/L Chloride 99 (98-107) mmol/L Carbon Dioxide 31 (21-32) mmol/L Anion Gap 6 (3-11) BUN 20 (6-23) mg/dl Creatinine 0.88 (0.6-1.2) mg/dl Est Cr Clr Drug Dosing Not Reportable Est GFR ( Amer) 79.9 ml/min Est GFR (Non-Af Amer) 68.9 ml/min BUN/Creatinine Ratio 22.7 H (10-20) Glucose 96 (70-99(Fasting)) mg/dl Calcium 8.8 (8.6-10.3) mg/dl Iron 17 L (35-150) mcg/dl TIBC 467 H (250-450) mcg/dl Unsaturated IBC 450 H (155-355) mcg/dl Transferrin % Sat 4 L (15-50) % Ferritin 4.5 L (8-388) ng/ml Total Bilirubin 0.2 (0.2-1.0) mg/dl AST 13 (13-39) U/L ALT 9 (7-52) U/L Alkaline Phosphatase 46 (34-104) U/L Troponin I High Sens 5.8 (0-14) pg/ml Total Protein 6.6 (6.0-8.3) gm/dl Albumin 3.9 (3.4-5.0) gm/dl Globulin 2.7 (2.5-4.0) gm/dl Albumin/Globulin Ratio 1.4 (0.9-2) Vitamin B12 852 (180-914) pg/ml Folate > 22.30 (>5.38) ng/ml TSH 0.275 L (0.300-4.500) uIu/ml Free T4 1.24 (0.61-1.60) ng/dl Urine Color Yellow Urine Appearance Cloudy A (Clear) Urine pH 5.5 (4.5-7.5) Ur Specific [place] 1.025 (1.000-1.030) Urine Protein Negative (Negative) Urine Glucose (UA) Negative (Negative) Urine Ketones Negative (Negative) Urine Blood Negative (Negative) Urine Nitrite Negative (Negative) Urine Bilirubin Negative (Negative) Urine Urobilinogen Negative (Negative) Ur Leukocyte Esterase 2+ H (Negative) Urine WBC (Auto) 11-20 H (0-5) /hpf Urine RBC (Auto) 0-2 (0-2) /hpf U Hyaline Cast (Auto) 0-2 (0-2) /lpf U Epithel Cells (Auto) 11-20 H (0-2) /hpf Urine Bacteria (Auto) 2+ H (None Seen) Blood Type A Positive Antibody Screen NEGATIVE Crossmatch See Detail Administered Medications Discontinued Medications Pantoprazole Sodium 80 mg/ (Dextrose) 120 mls @ 480 mls/hr IV ONE STA Stop: 03/30/24 18:37 Last Infusion: 03/30/24 18:57 Dose: Infused Documented By: Admin: 03/30/24 18:40 Dose: 480 mls/hr Documented By: BONNIE Discharge Plan Visit Data Chief Complaint: Referred by Doctor Stated Complaint: LOW BLOOD COUNT ED Provider: Brigido Davison Discharge Problem: Symptomatic anemia, Chronic anticoagulation, Chest pain, exertional
--- NOTE | 2024-03-30 16:47 | History & Physical Report ---
Date of Service March 30, 2024 Assessment & Plan (1) Anemia: Plan: Admit to med/tele Currently stable and nontoxic-appearing Was sent to the ED recommendation for PCP after outpatient labs showed a globin of 6.3, down from 8.6 as of 03/08/2024 Patient denies recent signs of bleeding, however, she has a known history of severe esophagitis on EGD as of 10/31/2023 and is currently on Eliquis, Plavix, and aspirin Patient denies current abdominal pain, vitals have been stable, she is nontoxic-appearing Suspect she is having a slow GI bleed due to her chronic anticoagulation and dual antiplatelet therapy At this time we will hold her Eliquis as she is in sinus rhythm We will hold her evening dose of aspirin and Plavix that she had her a.m. doses, if hemoglobin is stable tomorrow will need to consider restarting Patient has been consented for blood in the ED and ordered an initial 2 units PRBCs We will monitor CBC every 6 hours after second transfusion is complete Will give 80 mg IV pantoprazole now and then continue IV twice daily alondra hinkle GI consult has been placed Will allow clear liquids overnight with meds as she is stable and without acute signs of bleeding Bilateral SCDs for DVT prophylaxis A.m. CBC, CMP, mag, PT/INR (2) Bilateral carotid artery stenosis: Plan: Patient is status post bilateral carotid artery stent placement with Dr. Aiken on 12/01/2022 Did have a.m. doses of aspirin and Plavix today, we will hold her nighttime doses Monitor hemoglobin tomorrow after 2 units PRBCs overnight Will have to readdress starting aspirin and Plavix after hemoglobin remained stable (3) AF (paroxysmal atrial fibrillation): Plan: Patient is currently in normal sinus rhythm Hold Eliquis, last dose was this a.m. If she remains in normal sinus rhythm moving forward may have to consider holding Eliquis or decreasing her dose on discharge to prevent ongoing bleeding Continue metoprolol (4) Chronic antibiotic suppression: Plan: Patient is on chronic doxycycline due to previous history of MSSA infection of previous spine surgical site Will convert p.o. Doxy to IV while n.p.o. (5) On home oxygen therapy: Plan: Continue 3 L NC O2 at bedtime (6) Type 2 diabetes mellitus: Plan: Monitor BSG ACHS, goal is [id number] Patient is only on Ozempic at home Will start CF of 50 and CR of 15 ACHS for now as she will just be on clears Adjust regimen as needed Plan The patient was discussed with Dr. Escobar at the time of admission History of Present Illness Chief Complaint: Hemoglobin of 6.2 on outpatient labs Primary Care Provider: Gerda Johnson DO Delgadillo is a 63-year-old female with a past medical history significant for paroxysmal atrial fibrillation (on Eliquis), bilateral carotid artery stenosis status post bilateral carotid artery stent placement with Dr. Aiken in 2022 (on aspirin and Plavix (, hypertension, paroxysmal SVT, nonobstructive coronary artery disease, DM type II, history of MSSA infection of previous spinal surgery wound (on chronic doxycycline), severe sleep apnea, hypothyroidism, COPD who presented to the [facility] ED on 03/30/2024 at the recommendation of her PCP after outpatient labs showed a hemoglobin of 6.2 She remained stable in the ED. Labs were significant for hemoglobin 6.2, (down from 8.6 as of 03/08/2024), and UA with cloudy urine, 2+ LE, 1120 WBC, 1120 epithelial cells, and 2+ bacteria. Prior to admission the patient was consented for blood, type/screen and cross were obtained, and the patient was ordered 2 units of packed red blood cells to be given initially. Patient was sitting in bed in no acute distress at time of exam. States she was called and told to come to the ED due to the low hemoglobin. She has been experiencing some fatigue, mild dyspnea on exertion, and feeling cold over the past month or so. Has been having some reflux symptoms but has still been taking her esomeprazole and as needed Carafate. Confirm she is on Eliquis, aspirin, and Plavix and had her a.m. doses of all today. Denies recent fever, chills, chest pain, cough, abdominal pain, vomiting, dysuria/hematuria, bloody bowel movements or melena, and recent trauma. She is scheduled to have her first appointment with [facility] gastroenterology in April. She confirms that she is a full code and her is her primary decision-maker if she cannot make decisions for self. Please refer to Dr. Escobar's attestation for any changes to the treatment plan Allergies Allergy/AdvReac Type Severity Reaction Status Date / Time bee pollen Allergy Severe Anaphylaxis Verified 03/30/24 16:55 fentanyl Allergy Severe Severe Verified 03/30/24 16:55 sedation, resp depression (only with patches) Penicillins Allergy Severe Anaphylaxis Verified 03/30/24 16:55 pregabalin Allergy Severe Shortness Verified 03/30/24 16:55 of breath honey Allergy Intermediate Hives Verified 03/30/24 16:55 adhesive Allergy Mild Blister Verified 03/30/24 16:55 (wipe some plastic tape) oxcarbazepine AdvReac Severe Severe Verified 03/30/24 16:55 [From Trileptal] stomach issues sulfamethoxazole AdvReac Severe Severe Verified 03/30/24 16:55 nausea trimethoprim AdvReac Severe Severe Verified 03/30/24 16:55 nausea buprenorphine [From Suboxone] AdvReac Intermediate Vomiting, Verified 03/30/24 16:55 skin problems clindamycin AdvReac Intermediate Diarrhea Verified 03/30/24 16:55 fluticasone AdvReac Intermediate Severe Verified 03/30/24 16:55 thrush ketorolac AdvReac Intermediate Migraine Verified 03/30/24 16:55 levofloxacin [From Levaquin] AdvReac Intermediate IBS ("can Verified 03/30/24 16:55 only tolerate for 5 days") naloxone [From Suboxone] AdvReac Intermediate Severe Verified 03/30/24 16:55 nausea, SKIN PROBLEMS ondansetron [From Zofran] AdvReac Intermediate Migraine Verified 03/30/24 16:55 saccharin [From Sweeta] AdvReac Intermediate Severe Verified 03/30/24 16:55 vomiting salmeterol AdvReac Intermediate Severe Verified 03/30/24 16:55 thrush cephalexin AdvReac Mild Nausea Verified 03/30/24 16:55 Home Medications Medication Instructions Recorded Confirmed Type Hospital Bed Homecare (Hospital #1 ea 11/14/19 03/26/24 Rx Bed) blood-glucose meter ([facility] #1 ea 09/18/20 03/26/24 Rx Verio Meter) doxycycline hyclate 100 mg capsule 100 mg PO QPM 06/17/21 03/30/24 History lancets 30 gauge ([facility] #200 ea 06/19/21 03/26/24 Rx Lancets) albuterol sulfate 2.5 mg/0.5 mL 2.5 mg (0.5 mL) inhalation QID PRN 07/13/21 03/30/24 Rx solution for nebulization Wheezing #30 ea guaifenesin 1,200 mg tablet, 1,200 mg PO Q12H PRN Nasal 11/11/21 03/30/24 History extended release 12 hr (Mucinex) Congestion CPAP Machine #1 ea 08/02/22 03/26/24 Rx mometasone 0.1 % topical cream 1 applic topical DAILY PRN 10/22/22 03/30/24 Rx allergic reaction #15 grams aspirin 81 mg capsule 81 mg PO QAM 12/01/22 03/30/24 History cholecalciferol (vitamin D3) 250 500 mcg PO DAILY 01/24/23 03/30/24 History mcg (10,000 unit) tablet cyanocobalamin (vitamin B-12) 500 1,000 mcg (2 x 500 mcg) PO DAILY 03/15/23 03/30/24 Rx mcg tablet #60 tabs blood sugar diagnostic #100 ea 05/12/23 03/26/24 Rx Oxygen Home 05/17/23 03/26/24 History adalimumab 40 mg/0.8 mL 40 mg subcut Q14D 05/17/23 03/30/24 History subcutaneous syringe kit betamethasone dipropionate 0.05 % 1 applic topical BID PRN skin 05/25/23 03/30/24 Rx topical cream irritation #45 grams duloxetine 60 mg capsule,delayed 60 mg PO BID #60 caps 07/01/23 03/30/24 Rx release (Cymbalta) metoprolol succinate 25 mg 25 mg PO BID #180 tabs 08/19/23 03/30/24 Rx tablet,extended release 24 hr clopidogrel 75 mg tablet (Plavix) 75 mg PO QAM 10/26/23 03/30/24 History oxybutynin chloride 5 mg tablet 5 mg PO BID 10/26/23 03/30/24 History rimegepant 75 mg disintegrating 75 mg PO .COMPLEX PRN Migraine 10/26/23 03/30/24 History tablet (Nurtec ODT) Headache montelukast 10 mg tablet 10 mg PO QAM #90 tabs 11/10/23 03/30/24 Rx (Singulair) albuterol sulfate 90 mcg/actuation 2 puff inhalation Q6H PRN Wheezing 11/22/23 03/30/24 Rx aerosol inhaler #18 grams clobetasol 0.05 % lotion 1 applic topical BID PRN itching 2 11/22/23 03/30/24 Rx weeks #59 mL clobetasol 0.05 % topical cream 1 applic topical BID PRN rash #60 11/22/23 03/30/24 Rx grams fluticasone fur. 100 mcg-umeclid 1 inh inhalation QAM #60 ea 11/22/23 03/30/24 Rx 62.5 mcg-vilant 25 mcg inhalat.powder (Trelegy Ellipta) ezetimibe 10 mg tablet (Zetia) 10 mg PO HS #90 tabs 12/09/23 03/30/24 Rx pravastatin 40 mg tablet 40 mg PO HS #90 tabs 12/09/23 03/30/24 Rx semaglutide 1 mg/dose (4 mg/3 mL) 1 mg (0.75 mL) subcut WK #3 mL 12/22/23 03/30/24 Rx subcutaneous pen injector (Ozempic) hydroxyzine pamoate 25 mg capsule 25 mg PO TID PRN Anxiety #60 caps 01/02/24 03/30/24 Rx (Vistaril) levothyroxine 200 mcg tablet 200 mcg PO QAM #90 tabs 01/09/24 03/30/24 Rx trazodone 100 mg tablet 300 mg (3 x 100 mg) PO HS 90 days 01/12/24 03/30/24 Rx #270 tabs esomeprazole magnesium 40 mg 40 mg PO BID #180 caps 01/26/24 03/30/24 Rx capsule,delayed release (Nexium) folic acid 1 mg tablet 1 mg PO QAM #90 tabs 01/26/24 03/30/24 Rx levocetirizine 5 mg tablet (Xyzal) 5 mg PO HS #90 tabs 01/26/24 03/30/24 Rx silver sulfadiazine 1 % topical 1 applic topical DAILY PRN wound 01/26/24 03/30/24 Rx cream (Silvadene) healing #50 grams apixaban 5 mg tablet (Eliquis) 5 mg PO BID #90 tabs 02/01/24 03/30/24 Rx buspirone 10 mg tablet See Rx Instructions .Route 02/01/24 03/30/24 Rx .COMPLEX #405 tabs gabapentin 800 mg tablet 800 mg PO UD #105 tabs 02/01/24 03/30/24 Rx sucralfate 1 gram tablet (Carafate) 1 g PO BID PRN Acid Reflux #60 tabs 02/01/24 03/30/24 Rx epinephrine 0.3 mg/0.3 mL 0.3 mg (0.3 mL) IM Q10M PRN 02/10/24 03/30/24 Rx injection, auto-injector (EpiPen anaphylaxis #2 ea 2-Manny) nitroglycerin 0.4 mg sublingual 0.4 mg sublingual UD PRN Pain #25 02/10/24 03/30/24 Rx tablet (Nitrostat) tabs magnesium oxide 400 mg PO TID #270 tabs 02/15/24 03/30/24 Rx oxycodone 10 mg tablet 10 mg PO Q8H PRN pain, severe #90 03/13/24 03/30/24 Rx tabs benzonatate 200 mg capsule 200 mg PO BID PRN cough #30 caps 03/19/24 03/30/24 Rx clotrimazole-betamethasone 1 1 applic topical BID #45 grams 03/26/24 03/30/24 Rx %-0.05 % topical cream valacyclovir 1 gram tablet 1,000 mg PO TID PRN NEEDED 03/26/24 03/30/24 History (Valtrex) methocarbamol 500 mg tablet 1,000 mg (2 x 500 mg) PO QID 30 03/27/24 03/30/24 Rx days #240 tabs nystatin 100,000 unit/gram topical 1 applic topical BID #30 grams 03/27/24 03/30/24 Rx powder Past Med/Surg History Problem List Insomnia Migraines Stenosis of left internal carotid artery Bilateral carotid artery stenosis Incontinence Ulnar neuropathy at elbow of left upper extremity Cervical radiculopathy Esophageal dysphagia Ataxia Chronic antibiotic suppression Subjective memory complaints Diabetic peripheral neuropathy Neurogenic claudication due to lumbar spinal stenosis Chronic anticoagulation " CLOTTING PROBLEM' x 5 YRS F/U DR PATTERSON Lumbar spondylosis Chronic low back pain Gastritis Hypomagnesemia (Acute) Chronic diarrhea Thoracic spinal stenosis Dysfunction of right eustachian tube Dermatitis of both ear canals Degenerative joint disease of shoulder BILATERAL Sensorineural hearing loss (SNHL) of both ears (Chronic) Degenerative cervical spinal stenosis (Chronic) Pulsatile tinnitus (Chronic) Lumbar disc disease (Chronic) Failed back syndrome (Chronic) Osteoarthritis (Chronic) On home oxygen therapy (Chronic) 5L/MIN NC HS History of left common carotid artery stent placement (01/20/23) History of TIA (transient ischemic attack) Type 2 diabetes mellitus Severe sleep apnea 3L oxygen via N/C- (WAITING ON CPAP DEVICE) Follows with pulm Psoriatic arthritis No meds at this time- follows with rheum Obesity hypoventilation syndrome Morbid obesity BMI 43.2 Hypothyroidism (acquired) S/p thyroidectomy 2015 (final pathology negative for malignancy) Hypertension Hyperlipidemia controlled per pt GERD (gastroesophageal reflux disease) Diabetic neuropathy Depression Coronary artery disease Minor nonobstructive CAD per September 2012 cath per cardio records No hx stents or angioplasty COPD (chronic obstructive pulmonary disease) rare res inh use per pt > more fall season Chronic interstitial cystitis Chronic hyponatremia Anxiety Anemia Allergic rhinitis AF (paroxysmal atrial fibrillation) Takes Eliquis, follows with Dr. Plaza, no pacer NO HX CARDIOVERSION Medical History Impaired ambulation Clotting disorder TIA (transient ischemic attack) History of seizures Diffuse myofascial pain syndrome Meralgia paresthetica of right side Mixed hearing loss of right ear History of IA (myocardial infarction) (2009) Personal history of pulmonary embolism (2014) Personal history of skin cancer Carotid artery narrowing Hx of thyroid cancer Hx of deep venous thrombosis Surgical History History of right common carotid artery stent placement (12/01/22) History of tonsillectomy H/O colonoscopy with polypectomy History of cystoscopy History of incision and drainage S/P lumbar fusion History of esophagogastroduodenoscopy (EGD) H/O cataract extraction S/P dilatation and curettage S/P section History of thyroidectomy, total (2015) History of knee replacement History of placement of ear tubes History of cervical spinal surgery History of breast biopsy History of appendectomy History of back surgery History of cardiac cath Family History Mother Diabetes Family history of diabetes mellitus Cardiac disorder Heart trouble Myocardial infarction Renal failure Family history of reaction to anesthesia Hypertension Stroke Gallbladder disease Grandfather Family hx of colon cancer Myocardial infarction Father Colon cancer Cardiac disorder Kidney stones Heart trouble Myocardial infarction Degenerative disc disease Lung disease Hypertension Stroke Aunt Colon cancer Diabetes Grandmother (Maternal) Degenerative disc disease Cancer Sister Diabetes Family history of diabetes mellitus Breast cancer Cancer Hypertension Gallbladder disease Family/Other Kidney disease Brother Multiple sclerosis Uncle Myocardial infarction Grandfather (Maternal) Family history of diabetes mellitus Aunt Diabetes Aunt Diabetes Aunt Diabetes Aunt Diabetes Aunt Diabetes Other Dementia Denies family history of Ovarian cancer Prostate cancer Adverse effect of anesthesia Bleeding disorder Social History Smoking Status: Never smoker Tobacco Type: E-cigarettes / Vaping Age Started Using Tobacco: 12; packs per day: 0.5; Cigarettes Per Day: advised npo status; Second Hand Exposure: No; Do You Dip or Chew Tobacco: No; Hx Alcohol Use: No Hx Substance Use: No Preferred Language: Maltese Communication Ability: Effective Visual Impairment: Limited Hearing Ability: Hard of Hearing 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: No Beliefs That Will Affect Care: None marital status: Current Living Situation: Spouse Current Living Situation Comment: AND SON current occupational status: unemployed How many Children do You have: 2 Feels Safe at Home: Yes Childhood Exposure to Second-Hand Smoke: Yes (father smoked) Diet: regular Diet Comment: regular caffeine: Yes during the past year weight has: increased > 10 lbs Dental Care, Regularly: Yes Physical Activity Frequency: Does not Exercise Physical Activity Frequency Comment: LIMITED BY PHYSICAL CONDITION Seatbelt Use: always Sunscreen Use: Yes Assistive Devices: Cane, Denture - Upper, Denture - Lower, Glasses and Oxygen - at Night Physical Exam Physical Exam: Physical Exam: General: In no acute distress, stated age, Pale, chronically ill appearing but non-toxic HEENT: Normocephalic, atraumatic, no scleral icterus, pupils around round, symmetrical, and reactive to light, pale palpebral conjunctivae, moist mucus membranes, trachea midline, no thyromegaly Chest/Pulm: No respiratory distress, symmetrical chest expansion, clear breath sounds throughout Cardiac: RRR, no murmurs noted Abdomen: Negative for ascites and bruising, normoactive bowel sounds, soft, non-tender to palpation throughout Musculoskeletal: Symmetrical and without signs of acute trauma, upper and lower extremities with full ROM, no atrophy, spasticity, or flaccidity Extremities: Radial, dorsalis pedis, and posterior tibial pulses are intact and symmetrical, no edema noted in the BL LE's Skin: Pale,Warm, dry, no rashes , lesions, or scars noted Neuro: Alert and oriented to person, place, month, year, and president, no focal defects, no tremors noted Psych: No acute distress, calm and cooperative during the exam Results & Data Results & Data Vital Signs (Past 12 Hours) Vital Signs Temp Pulse Resp BP Pulse Ox O2 Del Method 03/30/24 14:52 36.9 C 86 18 116/68 95 Room Air Laboratory Results Abnormal lab results 03/30/24 03/30/24 Range/Units 15:26 15:35 RBC 2.70 L (4.20-5.40) M/uL Hgb 6.2 L* (12.0-16.0) g/dl Hct 21.8 L (37.0-47.0) % MCH 23.0 L (25.0-34.0) pg MCHC 28.4 L (32.0-36.0) g/dL RDW Std Deviation 49.9 H (36.4-46.3) fL RDW Coeff of Donald 16.9 H (11.5-14.5) % Neut # (Auto) 6.81 H (1.40-6.50) K/uL Thayer # (Auto) 0.87 H (0.11-0.59) K/uL BUN/Creatinine Ratio 22.7 H (10-20) Iron 17 L (35-150) mcg/dl TIBC 467 H (250-450) mcg/dl Unsaturated IBC 450 H (155-355) mcg/dl Transferrin % Sat 4 L (15-50) % TSH 0.275 L (0.300-4.500) uIu/ml Urine Appearance Cloudy A (Clear) Ur Leukocyte Esterase 2+ H (Negative) Urine WBC (Auto) 11-20 H (0-5) /hpf U Epithel Cells (Auto) 11-20 H (0-2) /hpf Urine Bacteria (Auto) 2+ H (None Seen) Crossmatch See Detail ECG Additional Comments: Yet to be obtained but has been ordered Code Status & VTE Plan Code Status Full code VTE Prophylaxis Plan VTE Prophylaxis will be ordered: Yes PG Care Time/CCT Total # of Minutes Spent Total Time Spent with Patient: Total time spent is greater than 50% in coordination of care (as documented) at patient's floor/unit and/or counseling patient: Coding [place] [address] INT INP/OBS CARE 3/75MIN Patient Type Established History Comprehensive Exam Comprehensive Medical Decision Making High Complexity Diagnoses Anemia D64.9 Bilateral carotid artery stenosis I65.23 AF (paroxysmal atrial fibrillation) I48.0 Chronic antibiotic suppression Z79.2 On home oxygen therapy Z99.81 Type 2 diabetes mellitus E11.9
[2024-03-30 17:05] LABS: T4 Free Thyroxine 1.24 ng/dl (0.61-1.60)
[2024-03-30] MEDS ORDERED: GLUCAGON FOR INJ 1 MG VIAL SQ PRN (17:06)
[2024-03-30] MEDS ORDERED: DEXTROSE 50% 50 ML SYRINGE IV PRN (17:06)
[2024-03-30] MEDS ORDERED: CARBOHYDRATES FOR HYPOGLYCEMIA PO PRN (17:06)
[2024-03-30] MEDS ORDERED: GLUCOSE 40% GEL 15 GM TUBE PO PRN (17:06)
[2024-03-30] MEDS ORDERED: GLUCOSE 10 TAB/TUBE PO PRN (17:06)
[2024-03-30 17:23] LABS: Ferritin 4.5 ng/ml (8-388)
[2024-03-30 17:28] LABS: Folate (Folic Acid),Ser orPlas > 22.30 ng/ml (>5.38)
[2024-03-30 17:29] LABS: Vitamin B12 852 pg/ml (180-914)
--- NOTE | 2024-03-30 18:07 | XRay Report ---
SINGLE VIEW CHEST CLINICAL HISTORY: Dyspnea FINDINGS: An AP, portable, upright chest radiograph is compared to study dated 04/18/2020 and correlat ed with chest CT dated 10/26/2022. The examination is degraded by portable technique and apical lordoti c positioning. The heart is enlarged noting atherosclerotic calcification of the thoracic aorta. The pulmonary vasculature is noncongested. Chronic interstitial thickening is similar to previous. Scarri ng/atelectasis is noted at the lung bases. The lungs and pleural spaces are otherwise clear. No pneum othorax is seen. The skeletal structures are osteopenic. The bony thorax is grossly intact. Advanced arthritic change is seen in the shoulders. Fusion hardware is noted in the cervical spine. IMPRESSION: Cardiomegaly with no active disease in the chest. ACT 112: Negative or not required by law. Electronically signed by: Milad Lees M.D. 03/30/2024 6:06 PM
[2024-03-30] MEDS: PANTOprazole 80 MG in DEXTROSE 5% 100 ML IV STA (18:40)
[2024-03-30] MEDS ORDERED: ALBUTEROL 0.5% NEB SOLN 2.5 MG/0.5 ML VIAL INH PRN (20:28)
[2024-03-30] MEDS: DOXYCYCLINE HYCLATE 100 MG in DEXTROSE 5% MINI-B 100 ML IV SCH (21:15)
[2024-03-30] MEDS: PRAVASTATIN SOD 40 MG TAB PO SCH (21:16)
[2024-03-30] MEDS: traZODone HCL 100 MG TAB PO SCH (21:16)
[2024-03-30] MEDS: guaiFENesin 600 MG TABCR PO PRN (21:17)
[2024-03-30] MEDS: EZETIMIBE 10 MG TAB PO SCH (21:17)
[2024-03-30] MEDS: DULoxetine HCL 60 MG CAP PO SCH (21:17)
[2024-03-30] MEDS: oxyBUTYnin chloride 5 MG TAB PO SCH (21:18)
[2024-03-30] MEDS: busPIRone 5 MG TAB PO SCH ×2 (21:19)
[2024-03-30] MEDS: METOPROLOL SUCC 25MG EXT REL TAB PO SCH (21:21)
[2024-03-30] MEDS: GABAPENTIN 800 MG TAB PO SCH (21:30)
[2024-03-30] MEDS: PANTOprazole 40 MG in SYRINGE 0 ML IV SCH (21:32)
[2024-03-30] MEDS: INSULIN ASPART PER UNIT CHARGE SC SCH (21:36)
[2024-03-31 01:03] LABS: Hematocrit (blood only) 25.2 % (37.0-47.0); Hemoglobin 7.7 g/dl (12.0-16.0); Mean Corpuscular Hemoglobin 24.7 pg (25.0-34.0); Mean Corpuscular Hgb Conc 30.6 g/dL (32.0-36.0); Mean Corpuscular Volume 80.8 fL (80.0-100.0); Mean Platelet Volume 9.8 fL (9.4-12.4); Nucleated RBC # (auto) 0.02 K/uL (0.00-0.12); Nucleated RBC % (auto) 0.2 %; Platelet Count 275 K/uL (130-400); RDW Coefficient of Variation 16.1 % (11.5-14.5); RDW Standard Deviation 47.4 fL (36.4-46.3); Red Blood Count 3.12 M/uL (4.20-5.40); White Blood Count 8.74 K/ul (4.8-10.8)
[2024-03-31] MEDS: METHOCARBAMOL 500 MG TABLET PO SCH (01:20)
[2024-03-31] MEDS: oxyCODONE HCL IR 5 MG TAB (IMMEDIATE RELEASE) PO PRN (03:27)
[2024-03-31] MEDS: LEVOTHYROXINE SODIUM 200 MCG TABLET PO SCH (05:46)
[2024-03-31 07:44] LABS: Prothrombin Time 10.9 Seconds (9.0-12.0)
[2024-03-31] MEDS: GABAPENTIN 800 MG TAB PO SCH (07:45)
[2024-03-31] MEDS: UMECLIDINIUM/VILANTEROL 62.5/25MCG 7 PUFFS/INHALER INH SCH (07:46)
[2024-03-31] MEDS: FLUTICASONE FUROATE 100MCG 14 PUFFS/INHALER INH SCH (07:46)
[2024-03-31 07:53] LABS: Albumin Globulin Ratio 1.4 (0.9-2); Albumin Level 3.5 gm/dl (3.4-5.0); BUN Creatinine Ratio 17.3 (10-20); Bilirubin,Total 0.4 mg/dl (0.2-1.0); Calcium 8.5 mg/dl (8.6-10.3); Creatinine Clr Calc Pharmacy 88.3 ml/min; Est GFR (African American) 88.3 ml/min; Est GFR (Non-African American) 76.2 ml/min; Globulin 2.5 gm/dl (2.5-4.0); Magnesium 1.7 mg/dl (1.7-2.4); Potassium 4.3 mmol/L (3.5-5.1)
[2024-03-31] MEDS: ACETAMINOPHEN 325 MG TAB PO PRN (09:51)
--- NOTE | 2024-03-31 10:32 | Gastrointestinal Consultation ---
Date of Consultation March 31, 2024 History of Present Illness Reason for Consultation: Anemia Requesting Physician: Tiago Crobett Attending Physician: Suresh Patel History of Present Illness 63 yo WF admitted after her OP MD noticed her Hgb to be low on routine blood draw and sent in for transfusion. 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 Allergies Allergy/AdvReac Type Severity Reaction Status Date / Time bee pollen Allergy Severe Anaphylaxis Verified 03/30/24 16:55 fentanyl Allergy Severe Severe Verified 03/30/24 16:55 sedation, resp depression (only with patches) Penicillins Allergy Severe Anaphylaxis Verified 03/30/24 16:55 pregabalin Allergy Severe Shortness Verified 03/30/24 16:55 of breath honey Allergy Intermediate Hives Verified 03/30/24 16:55 adhesive Allergy Mild Blister Verified 03/30/24 16:55 (wipe some plastic tape) oxcarbazepine AdvReac Severe Severe Verified 03/30/24 16:55 [From Trileptal] stomach issues sulfamethoxazole AdvReac Severe Severe Verified 03/30/24 16:55 nausea trimethoprim AdvReac Severe Severe Verified 03/30/24 16:55 nausea buprenorphine [From Suboxone] AdvReac Intermediate Vomiting, Verified 03/30/24 16:55 skin problems clindamycin AdvReac Intermediate Diarrhea Verified 03/30/24 16:55 fluticasone AdvReac Intermediate Severe Verified 03/30/24 16:55 thrush ketorolac AdvReac Intermediate Migraine Verified 03/30/24 16:55 levofloxacin [From Levaquin] AdvReac Intermediate IBS ("can Verified 03/30/24 16:55 only tolerate for 5 days") naloxone [From Suboxone] AdvReac Intermediate Severe Verified 03/30/24 16:55 nausea, SKIN PROBLEMS ondansetron [From Zofran] AdvReac Intermediate Migraine Verified 03/30/24 16:55 saccharin [From Sweeta] AdvReac Intermediate Severe Verified 03/30/24 16:55 vomiting salmeterol AdvReac Intermediate Severe Verified 03/30/24 16:55 thrush cephalexin AdvReac Mild Nausea Verified 03/30/24 16:55 Home Medications Medication Instructions Recorded Confirmed Type Hospital Bed Homecare ([facility] #1 11/14/19 03/26/24 Rx Bed) blood-glucose meter (OneTouch #1 ea 09/18/20 03/26/24 Rx Verio Meter) doxycycline hyclate 100 mg capsule 100 mg PO QPM 06/17/21 03/30/24 History lancets 30 gauge (OneTouch Delica #200 ea 06/19/21 03/26/24 Rx Lancets) albuterol sulfate 2.5 mg/0.5 mL 2.5 mg (0.5 mL) inhalation QID PRN 07/13/21 03/30/24 Rx solution for nebulization Wheezing #30 ea guaifenesin 1,200 mg tablet, 1,200 mg PO Q12H PRN Nasal 11/11/21 03/30/24 History extended release 12 hr (Mucinex) Congestion CPAP Machine #1 ea 08/02/22 03/26/24 Rx mometasone 0.1 % topical cream 1 applic topical DAILY PRN 10/22/22 03/30/24 Rx allergic reaction #15 grams aspirin 81 mg capsule 81 mg PO QAM 12/01/22 03/30/24 History cholecalciferol (vitamin D3) 250 500 mcg PO DAILY 01/24/23 03/30/24 History mcg (10,000 unit) tablet cyanocobalamin (vitamin B-12) 500 1,000 mcg (2 x 500 mcg) PO DAILY 03/15/23 03/30/24 Rx mcg tablet #60 tabs blood sugar diagnostic #100 ea 05/12/23 03/26/24 Rx Oxygen Home 05/17/23 03/26/24 History adalimumab 40 mg/0.8 mL 40 mg subcut Q14D 05/17/23 03/30/24 History subcutaneous syringe kit betamethasone dipropionate 0.05 % 1 applic topical BID PRN skin 05/25/23 03/30/24 Rx topical cream irritation #45 grams duloxetine 60 mg capsule,delayed 60 mg PO BID #60 caps 07/01/23 03/30/24 Rx release (Cymbalta) metoprolol succinate 25 mg 25 mg PO BID #180 tabs 08/19/23 03/30/24 Rx tablet,extended release 24 hr clopidogrel 75 mg tablet (Plavix) 75 mg PO QAM 10/26/23 03/30/24 History oxybutynin chloride 5 mg tablet 5 mg PO BID 10/26/23 03/30/24 History rimegepant 75 mg disintegrating 75 mg PO .COMPLEX PRN Migraine 10/26/23 03/30/24 History tablet (Nurtec ODT) Headache montelukast 10 mg tablet 10 mg PO QAM #90 tabs 11/10/23 03/30/24 Rx (Singulair) albuterol sulfate 90 mcg/actuation 2 puff inhalation Q6H PRN Wheezing 11/22/23 03/30/24 Rx aerosol inhaler #18 grams clobetasol 0.05 % lotion 1 applic topical BID PRN itching 2 11/22/23 03/30/24 Rx weeks #59 mL clobetasol 0.05 % topical cream 1 applic topical BID PRN rash #60 11/22/23 03/30/24 Rx grams fluticasone fur. 100 mcg-umeclid 1 inh inhalation QAM #60 ea 11/22/23 03/30/24 Rx 62.5 mcg-vilant 25 mcg inhalat.powder (Trelegy Ellipta) ezetimibe 10 mg tablet (Zetia) 10 mg PO HS #90 tabs 12/09/23 03/30/24 Rx pravastatin 40 mg tablet 40 mg PO HS #90 tabs 12/09/23 03/30/24 Rx semaglutide 1 mg/dose (4 mg/3 mL) 1 mg (0.75 mL) subcut WK #3 mL 12/22/23 03/30/24 Rx subcutaneous pen injector (Ozempic) hydroxyzine pamoate 25 mg capsule 25 mg PO TID PRN Anxiety #60 caps 01/02/24 03/30/24 Rx (Vistaril) levothyroxine 200 mcg tablet 200 mcg PO QAM #90 tabs 01/09/24 03/30/24 Rx trazodone 100 mg tablet 300 mg (3 x 100 mg) PO HS 90 days 01/12/24 03/30/24 Rx #270 tabs esomeprazole magnesium 40 mg 40 mg PO BID #180 caps 01/26/24 03/30/24 Rx capsule,delayed release (Nexium) folic acid 1 mg tablet 1 mg PO QAM #90 tabs 01/26/24 03/30/24 Rx levocetirizine 5 mg tablet (Xyzal) 5 mg PO HS #90 tabs 01/26/24 03/30/24 Rx silver sulfadiazine 1 % topical 1 applic topical DAILY PRN wound 01/26/24 03/30/24 Rx cream (Silvadene) healing #50 grams apixaban 5 mg tablet (Eliquis) 5 mg PO BID #90 tabs 02/01/24 03/30/24 Rx buspirone 10 mg tablet See Rx Instructions .Route 02/01/24 03/30/24 Rx .COMPLEX #405 tabs gabapentin 800 mg tablet 800 mg PO UD #105 tabs 02/01/24 03/30/24 Rx sucralfate 1 gram tablet (Carafate) 1 g PO BID PRN Acid Reflux #60 tabs 02/01/24 03/30/24 Rx epinephrine 0.3 mg/0.3 mL 0.3 mg (0.3 mL) IM Q10M PRN 02/10/24 03/30/24 Rx injection, auto-injector (EpiPen anaphylaxis #2 ea 2-Manny) nitroglycerin 0.4 mg sublingual 0.4 mg sublingual UD PRN Pain #25 02/10/24 03/30/24 Rx tablet (Nitrostat) tabs magnesium oxide 400 mg PO TID #270 tabs 02/15/24 03/30/24 Rx oxycodone 10 mg tablet 10 mg PO Q8H PRN pain, severe #90 03/13/24 03/30/24 Rx tabs benzonatate 200 mg capsule 200 mg PO BID PRN cough #30 caps 03/19/24 03/30/24 Rx clotrimazole-betamethasone 1 1 applic topical BID #45 grams 03/26/24 03/30/24 Rx %-0.05 % topical cream valacyclovir 1 gram tablet 1,000 mg PO TID PRN NEEDED 03/26/24 03/30/24 History (Valtrex) methocarbamol 500 mg tablet 1,000 mg (2 x 500 mg) PO QID 30 03/27/24 03/30/24 Rx days #240 tabs nystatin 100,000 unit/gram topical 1 applic topical BID #30 grams 03/27/24 03/30/24 Rx powder Patient History Medical History Impaired ambulation Clotting disorder TIA (transient ischemic attack) History of seizures Diffuse myofascial pain syndrome Meralgia paresthetica of right side Mixed hearing loss of right ear History of ID (myocardial infarction) (2009) Personal history of pulmonary embolism (2014) Personal history of skin cancer Carotid artery narrowing Hx of thyroid cancer Hx of deep venous thrombosis Surgical History History of right common carotid artery stent placement (12/01/22) History of tonsillectomy H/O colonoscopy with polypectomy History of cystoscopy History of incision and drainage S/P lumbar fusion History of esophagogastroduodenoscopy (EGD) H/O cataract extraction S/P dilatation and curettage S/P section History of thyroidectomy, total (2015) History of knee replacement History of placement of ear tubes History of cervical spinal surgery History of breast biopsy History of appendectomy History of back surgery History of cardiac cath Family History Mother Diabetes Family history of diabetes mellitus Cardiac disorder Heart trouble Myocardial infarction Renal failure Family history of reaction to anesthesia Hypertension Stroke Gallbladder disease Grandfather Family hx of colon cancer Myocardial infarction Father Colon cancer Cardiac disorder Kidney stones Heart trouble Myocardial infarction Degenerative disc disease Lung disease Hypertension Stroke Aunt Colon cancer Diabetes Grandmother (Maternal) Degenerative disc disease Cancer Sister Diabetes Family history of diabetes mellitus Breast cancer Cancer Hypertension Gallbladder disease Family/Other Kidney disease Brother Multiple sclerosis Uncle Myocardial infarction Grandfather (Maternal) Family history of diabetes mellitus Aunt Diabetes Aunt Diabetes Aunt Diabetes Aunt Diabetes Aunt Diabetes Other Dementia Denies family history of Ovarian cancer Prostate cancer Adverse effect of anesthesia Bleeding disorder Social History Smoking Status: Current every day smoker Tobacco Type: Cigarettes Age Started Using Tobacco: 12; packs per day: 0.5; Cigarettes Per Day: 4; Second Hand Exposure: No; Do You Dip or Chew Tobacco: No; Tobacco Cessation Education Requested by Patient: No Hx Alcohol Use: No Hx Substance Use: No Preferred Language: Turkmen Communication Ability: Effective Visual Impairment: Limited Hearing Ability: Hard of Hearing Flame Cutter Required: No Beliefs That Will Affect Care: None marital status: Current Living Situation: Family Current Living Situation Comment: AND SON current occupational status: unemployed How many Children do You have: 2 Other Information That Helps Us Care for You: No Feels Safe at Home: Yes Safety Concerns: Feels Safe At This Time Childhood Exposure to Second-Hand Smoke: Yes (father smoked) Diet: regular Diet Comment: regular caffeine: Yes during the past year weight has: increased > 10 lbs Dental Care, Regularly: Yes Physical Activity Frequency: Does not Exercise Physical Activity Frequency Comment: LIMITED BY PHYSICAL CONDITION Seatbelt Use: always Sunscreen Use: Yes Assistive Devices: Cane, Denture - Upper, Denture - Lower, Glasses and Oxygen - at Night Results & Data Vital Signs (Past 12 Hours) Vital Signs Temp Pulse Pulse Resp BP BP Pulse Ox 03/31/24 08:13 03/31/24 07:50 36.5 C 75 18 133/59 L 98 03/31/24 07:13 77 03/31/24 03:14 36.6 C 67 18 142/57 H 99 03/30/24 22:30 36.9 C 72 16 110/65 100 O2 Del Method O2 Flow Rate 03/31/24 08:13 Room Air 03/31/24 07:50 Nasal Cannula 3 03/31/24 07:13 03/31/24 03:14 Nasal Cannula 3 03/30/24 22:30 3 PG Care Time/CCT Total # of Minutes Spent Total Time Spent with Patient: Total time spent is greater than 50% in coordination of care (as documented) at patient's floor/unit and/or counseling patient: Coding Level of Care Code None
--- NOTE | 2024-03-31 10:35 | Hospitalist Progress Note ---
Date of Service March 31, 2024 Assessment & Plan (1) Anemia: Plan: Patient presented to ED on 03/30 following results of outpatient labs. She had hgb outpatient that was low at 6.3. -Acute on chronic iron deficiency anemia -s/p 2 units PRBCs 03/30 - improvement of hgb to 7.7 -reviewed CBC from 1400 on 03/31: hgb stable at 7.5 -reviewed iron studies from 03/30:iron 17, TIBC 467, transferrin % 4, ferritin 4.5 -s/p IV Venofer 03/31 -Aspirin, Eliquis on hold, resumed Plavix 03/31. -Continue PPI BID -Reviewed GI consult 03/31 -follow up outpatient for small bowel capsule endoscopy -transfuse PRBCs prn and consider IV iron -advanced to carb consistent diet A.m. CBC, BMP, mag (2) Bilateral carotid artery stenosis: Plan: Patient is status post bilateral carotid artery stent placement with Dr. Aiken on 12/01/2022 -Aspirin on hold -resumed Plavix 03/31 (3) AF (paroxysmal atrial fibrillation): Plan: Patient is currently in normal sinus rhythm Hold Eliquis, last dose 7 AM If she remains in normal sinus rhythm moving forward may have to consider holding Eliquis or decreasing her dose on discharge to prevent ongoing bleeding Continue metoprolol Plan Chronic conditions: Type 2 Diabetes: monitor BSG ACHS goal 110-160 w/ CF of 50 & CR of 15. -holding home ozempic O2 therapy at home: continue 3 L NC at bedtime Chronic antibiotic suppression: on chronic doxycycline due to previous hx of MSSA infx of previous spine surgical site -converted PO doxy to IV while inpatient DVT prophylaxis: SCDs Code status: full diet: carb consistent, heart healthy Disposition: continued inpatient stay until hgb is stable. Admission and Anticipated Discharge Date Admission Date: March 30, 2024 Subjective Patient seen and examined this morning at bedside. Patient did complain of pain all over. She was at 3L o2 nasal cannula at time of encounter. She states that when she becomes severely anemic she typically requires oxygen therapy. She states she has this at home as well. She denies chest pain or shortness of breath at time of encounter. She denies any overt signs of bleeding but also states she is color blind. She states she has history of Iron Def anemia and follows outpatient with [facility] hematology. She has been on PO iron in past and cannot tolerate side effects so she prefers to not use it. She has received IV iron outpatient with her last one being in January. She states she is scheduled to see GI in April for evaluation of capsule endoscopy. She is up to date on EGD and colonoscopy. Physical Exam 2 Constitutional: WD/WN, vitals as above Eyes: PERRL, conjunctivae normal, anicteric sclerae Respiratory: normal respiratory effort, lungs clear to auscultation Cardiovascular: RRR, no murmur, no edema Skin: no rashes, warm and dry Psychiatric: A+Ox3, euthymic affect Results & Data Results & Data Vital Signs (Past 12 Hours) Vital Signs Temp Pulse Pulse Resp BP Pulse Ox O2 Del Method 03/31/24 08:13 Room Air 03/31/24 07:50 36.5 C 75 18 133/59 L 98 Nasal Cannula 03/31/24 07:13 77 03/31/24 03:14 36.6 C 67 18 142/57 H 99 Nasal Cannula O2 Flow Rate 03/31/24 08:13 03/31/24 07:50 3 03/31/24 07:13 03/31/24 03:14 3 Laboratory Results 03/31/24 14:10 03/31/24 06:29 Diagnostic Findings Chest X-Ray 03/30/24 17:19 SINGLE VIEW CHEST CLINICAL HISTORY: Dyspnea FINDINGS: An AP, portable, upright chest radiograph is compared to study dated 04/18/2020 and correlated with chest CT dated 10/26/2022. The examination is degraded by portable technique and apical lordotic positioning. The heart is enlarged noting atherosclerotic calcification of the thoracic aorta. The pulmonary vasculature is noncongested. Chronic interstitial thickening is similar to previous. Scarring/atelectasis is noted at the lung bases. The lungs and pleural spaces are otherwise clear. No pneumothorax is seen. The skeletal structures are osteopenic. The bony thorax is grossly intact. Advanced arthritic change is seen in the shoulders. Fusion hardware is noted in the cervical spine. IMPRESSION: Cardiomegaly with no active disease in the chest. ACT 112: Negative or not required by law. Electronically signed by: Milad Lees M.D. 03/30/2024 6:06 PM PG Care Time/CCT Total # of Minutes Spent Total Time Spent with Patient: Total time spent is greater than 50% in coordination of care (as documented) at patient's floor/unit and/or counseling patient: Coding Level of Care Code 92341 SUB INP/OBS CARE 350MIN Diagnoses Iron deficiency anemia due to chronic blood loss D50.0 Anemia type: iron deficiency Iron deficiency anemia type: chronic blood loss Bilateral carotid artery stenosis I65.23 AF (paroxysmal atrial fibrillation) I48.0 (1) Anemia Anemia type: iron deficiency Iron deficiency anemia type: chronic blood loss Qualified Code(s): D50.0 - Iron deficiency anemia secondary to blood loss (chronic)
--- NOTE | 2024-03-31 10:38 | Gastrointestinal Consultation ---
Date of Consultation March 31, 2024 History of Present Illness Reason for Consultation: Anemia Requesting Physician: Tiago Corbett Attending Physician: Suresh Patel History of Present Illness 63 yo WF admitted after she was sent into the hospital after it was noted she had a low hemoglobin. 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 Allergies Allergy/AdvReac Type Severity Reaction Status Date / Time bee pollen Allergy Severe Anaphylaxis Verified 03/30/24 16:55 fentanyl Allergy Severe Severe Verified 03/30/24 16:55 sedation, resp depression (only with patches) Penicillins Allergy Severe Anaphylaxis Verified 03/30/24 16:55 pregabalin Allergy Severe Shortness Verified 03/30/24 16:55 of breath honey Allergy Intermediate Hives Verified 03/30/24 16:55 adhesive Allergy Mild Blister Verified 03/30/24 16:55 (wipe some plastic tape) oxcarbazepine AdvReac Severe Severe Verified 03/30/24 16:55 [From Trileptal] stomach issues sulfamethoxazole AdvReac Severe Severe Verified 03/30/24 16:55 nausea trimethoprim AdvReac Severe Severe Verified 03/30/24 16:55 nausea buprenorphine [From Suboxone] AdvReac Intermediate Vomiting, Verified 03/30/24 16:55 skin problems clindamycin AdvReac Intermediate Diarrhea Verified 03/30/24 16:55 fluticasone AdvReac Intermediate Severe Verified 03/30/24 16:55 thrush ketorolac AdvReac Intermediate Migraine Verified 03/30/24 16:55 levofloxacin [From Levaquin] AdvReac Intermediate IBS ("can Verified 03/30/24 16:55 only tolerate for 5 days") naloxone [From Suboxone] AdvReac Intermediate Severe Verified 03/30/24 16:55 nausea, SKIN PROBLEMS ondansetron [From Zofran] AdvReac Intermediate Migraine Verified 03/30/24 16:55 saccharin [From Sweeta] AdvReac Intermediate Severe Verified 03/30/24 16:55 vomiting salmeterol AdvReac Intermediate Severe Verified 03/30/24 16:55 thrush cephalexin AdvReac Mild Nausea Verified 03/30/24 16:55 Home Medications Medication Instructions Recorded Confirmed Type Hospital Bed [facility] ([facility] 11/14/19 03/26/24 Rx Bed) blood-glucose meter (OneTouch #1 ea 09/18/20 03/26/24 Rx Verio Meter) doxycycline hyclate 100 mg capsule 100 mg PO QPM 06/17/21 03/30/24 History lancets 30 gauge (OneTouch Delica #200 ea 06/19/21 03/26/24 Rx Lancets) albuterol sulfate 2.5 mg/0.5 mL 2.5 mg (0.5 mL) inhalation QID PRN 07/13/21 03/30/24 Rx solution for nebulization Wheezing #30 ea guaifenesin 1,200 mg tablet, 1,200 mg PO Q12H PRN Nasal 11/11/21 03/30/24 History extended release 12 hr (Mucinex) Congestion CPAP Machine #1 ea 08/02/22 03/26/24 Rx mometasone 0.1 % topical cream 1 applic topical DAILY PRN 10/22/22 03/30/24 Rx allergic reaction #15 grams aspirin 81 mg capsule 81 mg PO QAM 12/01/22 03/30/24 History cholecalciferol (vitamin D3) 250 500 mcg PO DAILY 01/24/23 03/30/24 History mcg (10,000 unit) tablet cyanocobalamin (vitamin B-12) 500 1,000 mcg (2 x 500 mcg) PO DAILY 03/15/23 03/30/24 Rx mcg tablet #60 tabs blood sugar diagnostic #100 ea 05/12/23 03/26/24 Rx Oxygen Home 05/17/23 03/26/24 History adalimumab 40 mg/0.8 mL 40 mg subcut Q14D 05/17/23 03/30/24 History subcutaneous syringe kit betamethasone dipropionate 0.05 % 1 applic topical BID PRN skin 05/25/23 03/30/24 Rx topical cream irritation #45 grams duloxetine 60 mg capsule,delayed 60 mg PO BID #60 caps 07/01/23 03/30/24 Rx release (Cymbalta) metoprolol succinate 25 mg 25 mg PO BID #180 tabs 08/19/23 03/30/24 Rx tablet,extended release 24 hr clopidogrel 75 mg tablet (Plavix) 75 mg PO QAM 10/26/23 03/30/24 History oxybutynin chloride 5 mg tablet 5 mg PO BID 10/26/23 03/30/24 History rimegepant 75 mg disintegrating 75 mg PO .COMPLEX PRN Migraine 10/26/23 03/30/24 History tablet (Nurtec ODT) Headache montelukast 10 mg tablet 10 mg PO QAM #90 tabs 11/10/23 03/30/24 Rx (Singulair) albuterol sulfate 90 mcg/actuation 2 puff inhalation Q6H PRN Wheezing 11/22/23 03/30/24 Rx aerosol inhaler #18 grams clobetasol 0.05 % lotion 1 applic topical BID PRN itching 2 11/22/23 03/30/24 Rx weeks #59 mL clobetasol 0.05 % topical cream 1 applic topical BID PRN rash #60 11/22/2309/11 Rx grams fluticasone fur. 100 mcg-umeclid 1 inh inhalation QAM #60 ea 11/22/23 03/30/24 Rx 62.5 mcg-vilant 25 mcg inhalat.powder (Trelegy Ellipta) ezetimibe 10 mg tablet (Zetia) 10 mg PO HS #90 tabs 12/09/23 03/30/24 Rx pravastatin 40 mg tablet 40 mg PO HS #90 tabs 12/09/23 03/30/24 Rx semaglutide 1 mg/dose (4 mg/3 mL) 1 mg (0.75 mL) subcut WK #3 mL 12/22/23 03/30/24 Rx subcutaneous pen injector (Ozempic) hydroxyzine pamoate 25 mg capsule 25 mg PO TID PRN Anxiety #60 caps 01/02/24 03/30/24 Rx (Vistaril) levothyroxine 200 mcg tablet 200 mcg PO QAM #90 tabs 01/09/24 03/30/24 Rx trazodone 100 mg tablet 300 mg (3 x 100 mg) PO HS 90 days 01/12/24 03/30/24 Rx #270 tabs esomeprazole magnesium 40 mg 40 mg PO BID #180 caps 01/26/24 03/30/24 Rx capsule,delayed release (Nexium) folic acid 1 mg tablet 1 mg PO QAM #90 tabs 01/26/24 03/30/24 Rx levocetirizine 5 mg tablet (Xyzal) 5 mg PO HS #90 tabs 01/26/24 03/30/24 Rx silver sulfadiazine 1 % topical 1 applic topical DAILY PRN wound 01/26/24 03/30/24 Rx cream (Silvadene) healing #50 grams apixaban 5 mg tablet (Eliquis) 5 mg PO BID #90 tabs 02/01/24 03/30/24 Rx buspirone 10 mg tablet See Rx Instructions .Route 02/01/24 03/30/24 Rx .COMPLEX #405 tabs gabapentin 800 mg tablet 800 mg PO UD #105 tabs 02/01/24 03/30/24 Rx sucralfate 1 gram tablet (Carafate) 1 g PO BID PRN Acid Reflux #60 tabs 02/01/24 03/30/24 Rx epinephrine 0.3 mg/0.3 mL 0.3 mg (0.3 mL) IM Q10M PRN 02/10/24 03/30/24 Rx injection, auto-injector (EpiPen anaphylaxis #2 ea 2-Manny) nitroglycerin 0.4 mg sublingual 0.4 mg sublingual UD PRN Pain #25 02/10/24 03/30/24 Rx tablet (Nitrostat) tabs magnesium oxide 400 mg PO TID #270 tabs 02/15/24 03/30/24 Rx oxycodone 10 mg tablet 10 mg PO Q8H PRN pain, severe #90 03/13/24 03/30/24 Rx tabs benzonatate 200 mg capsule 200 mg PO BID PRN cough #30 caps 03/19/24 03/30/24 Rx clotrimazole-betamethasone 1 1 applic topical BID #45 grams 03/26/24 03/30/24 Rx %-0.05 % topical cream valacyclovir 1 gram tablet 1,000 mg PO TID PRN NEEDED 03/26/24 03/30/24 History (Valtrex) methocarbamol 500 mg tablet 1,000 mg (2 x 500 mg) PO QID 30 03/27/24 03/30/24 Rx days #240 tabs nystatin 100,000 unit/gram topical 1 applic topical BID #30 grams 03/27/24 03/30/24 Rx powder Pulmonary Results: Pulmonary Function Test 10/29/19 Most Recent Cardiac Tests: Chest X-Ray 03/30/24 Pulmonary Function Test 10/29/19 Echocardiogram 11/22/18 Most Recent Cardiac Tests: Chest X-Ray 03/30/24 Pulmonary Function Test 10/29/19 Echocardiogram 11/22/18 Patient History Medical History Impaired ambulation Clotting disorder TIA (transient ischemic attack) History of seizures Diffuse myofascial pain syndrome Meralgia paresthetica of right side Mixed hearing loss of right ear History of [place] (myocardial infarction) (2009) Personal history of pulmonary embolism (2014) Personal history of skin cancer Carotid artery narrowing Hx of thyroid cancer Hx of deep venous thrombosis Surgical History History of right common carotid artery stent placement (12/01/22) History of tonsillectomy H/O colonoscopy with polypectomy History of cystoscopy History of incision and drainage S/P lumbar fusion History of esophagogastroduodenoscopy (EGD) H/O cataract extraction S/P dilatation and curettage S/P section History of thyroidectomy, total (2015) History of knee replacement History of placement of ear tubes History of cervical spinal surgery History of breast biopsy History of appendectomy History of back surgery History of cardiac cath Family History Mother Diabetes Family history of diabetes mellitus Cardiac disorder Heart trouble Myocardial infarction Renal failure Family history of reaction to anesthesia Hypertension Stroke Gallbladder disease Grandfather Family hx of colon cancer Myocardial infarction Father Colon cancer Cardiac disorder Kidney stones Heart trouble Myocardial infarction Degenerative disc disease Lung disease Hypertension Stroke Aunt Colon cancer Diabetes Grandmother (Maternal) Degenerative disc disease Cancer Sister Diabetes Family history of diabetes mellitus Breast cancer Cancer Hypertension Gallbladder disease Family/Other Kidney disease Brother Multiple sclerosis Uncle Myocardial infarction Grandfather (Maternal) Family history of diabetes mellitus Aunt Diabetes Aunt Diabetes Aunt Diabetes Aunt Diabetes Aunt Diabetes Other Dementia Denies family history of Ovarian cancer Prostate cancer Adverse effect of anesthesia Bleeding disorder Social History Smoking Status: Current every day smoker Tobacco Type: Cigarettes Age Started Using Tobacco: 12; packs per day: 0.5; Cigarettes Per Day: 4; Second Hand Exposure: No; Do You Dip or Chew Tobacco: No; Tobacco Cessation Education Requested by Patient: No Hx Alcohol Use: No Hx Substance Use: No Preferred Language: [place] Communication Ability: Effective Visual Impairment: Limited Hearing Ability: Hard of Hearing Capacity Manager Required: No Beliefs That Will Affect Care: None marital status: Current Living Situation: Family Current Living Situation Comment: AND SON current occupational status: unemployed How many Children do You have: 2 Other Information That Helps Us Care for You: No Feels Safe at Home: Yes Safety Concerns: Feels Safe At This Time Childhood Exposure to Second-Hand Smoke: Yes (father smoked) Diet: regular Diet Comment: regular caffeine: Yes during the past year weight has: increased > 10 lbs Dental Care, Regularly: Yes Physical Activity Frequency: Does not Exercise Physical Activity Frequency Comment: LIMITED BY PHYSICAL CONDITION Seatbelt Use: always Sunscreen Use: Yes Assistive Devices: Cane, Denture - Upper, Denture - Lower, Glasses and Oxygen - at Night Review of Systems She denies any vomiting or abdominal pain. As above she has noticed no change in her BMs or change in color although she admits to being color blind. Physical Exam Constitutional WD WN WF NAD Afebrile VSS Eyes Sclera anicteric Conjunctiva pale Respiratory Lungs: Clear with fair to good aeration Cardiovascular Seems reg Gastrointestinal (Abdomen) Decreased BS but soft, nontender Musculoskeletal Neg CCE of LE's Neurologic A/O Results & Data Vital Signs (Past 12 Hours) Vital Signs Temp Pulse Pulse Resp BP Pulse Ox O2 Del Method 03/31/24 08:13 Room Air 03/31/24 07:50 36.5 C 75 18 133/59 L 98 Nasal Cannula 03/31/24 07:13 77 03/31/24 03:14 36.6 C 67 18 142/57 H 99 Nasal Cannula O2 Flow Rate 03/31/24 08:13 03/31/24 07:50 3 03/31/24 07:13 03/31/24 03:14 3 Assessment & Plan (1) Anemia: Plan Anemia: This is chronic and she has had an extensive work up. She states she had an EGD in October, that showed some inflammation but it was felt not severe enough to cause her anemia. She also had a colonoscopy at that same time and states polyps were removed but again this was not felt to be enough to account for her anemia. She is already scheduled to have a SB Video Capsule Endoscopy. Therefore - agree with transfusion and consider IV iron infusion (she states she cannot tolerate po) and have her follow up and keep her OP SB Video Capsule Endoscopy appointment already scheduled to continue her GI luminal work up for anemia. IP GI Service will sign off. PG Care Time/CCT Total # of Minutes Spent Total Time Spent with Patient: Total time spent is greater than 50% in coordination of care (as documented) at patient's floor/unit and/or counseling patient:
[2024-03-31] MEDS: IRON SUCROSE 200 MG in 0.9 % SODIUM CHLORIDE 100 ML IV ONE (11:27)
--- NOTE | 2024-03-31 11:46 | Electrocardiogram Report ---
Test Reason : Blood Pressure : / mmHG Vent. Rate : 077 BPM Atrial Rate : 077 BPM P-R Int : 136 ms QRS Dur : 068 ms QT Int : 384 ms P-R-T Axes : 035 028 016 degrees QTc Int : 434 ms Normal sinus rhythm Nonspecific ST abnormality Abnormal ECG When compared with ECG of 21-DEC-2021 09:27, No significant change was found Confirmed by Ajay Plaza ([id number]) on 03/31/2024 11:45:42 AM Referred By: Gerda Johnson Confirmed By:Ajay Plaza
[2024-03-31 14:45] LABS: Basophils # (auto) 0.05 K/uL (0.00-0.20); Basophils % (auto) 0.7 %; Eosinophils # (auto) 0.21 K/uL (0.00-0.50); Hematocrit (blood only) 24.8 % (37.0-47.0); Hemoglobin 7.5 g/dl (12.0-16.0); Immature Granulocytes # (auto) 0.04 K/uL (0.01-0.20); Immature Granulocytes % (auto) 0.6 %; Lymphocytes # (auto) 1.75 K/uL (1.20-3.40); Lymphocytes % (auto) 24.9 %; Mean Corpuscular Hemoglobin 24.4 pg (25.0-34.0); Mean Corpuscular Hgb Conc 30.2 g/dL (32.0-36.0); Mean Corpuscular Volume 80.8 fL (80.0-100.0); Mean Platelet Volume 9.9 fL (9.4-12.4); Monocytes # (auto) 0.74 K/uL (0.11-0.59); Monocytes % (auto) 10.5 %; Neutrophils # (auto) 4.24 K/uL (1.40-6.50); Neutrophils % (auto) 60.3 %; Platelet Count 281 K/uL (130-400); RDW Coefficient of Variation 16.2 % (11.5-14.5); RDW Standard Deviation 47.9 fL (36.4-46.3); Red Blood Count 3.07 M/uL (4.20-5.40); White Blood Count 7.03 K/ul (4.8-10.8)
[2024-03-31 15:05] LABS: Polychromasia 2+
[2024-04-01] MEDS: HYDROmorphone INJ 0.5 MG/0.5 ML SYR IV STA (00:51)
[2024-04-01 06:34] LABS: Albumin Globulin Ratio 1.4 (0.9-2); Albumin Level 3.5 gm/dl (3.4-5.0); Bilirubin,Total 0.3 mg/dl (0.2-1.0); Calcium 8.6 mg/dl (8.6-10.3); Creatinine Clr Calc Pharmacy 71.6 ml/min; Est GFR (African American) 68.5 ml/min; Est GFR (Non-African American) 59.1 ml/min; Globulin 2.5 gm/dl (2.5-4.0); Magnesium 1.8 mg/dl (1.7-2.4); Potassium 4.8 mmol/L (3.5-5.1)
[2024-04-01 06:58] LABS: Prothrombin Time 10.6 Seconds (9.0-12.0)
[2024-04-01] MEDS: CLOPIDOGREL BISULFATE 75 MG TAB PO SCH (07:22)
[2024-04-01 08:30] LABS: Basophils # (auto) 0.06 K/uL (0.00-0.20); Basophils % (auto) 0.8 %; Eosinophils # (auto) 0.31 K/uL (0.00-0.50); Hematocrit (blood only) 26.3 % (37.0-47.0); Immature Granulocytes # (auto) 0.07 K/uL (0.01-0.20); Immature Granulocytes % (auto) 0.9 %; Lymphocytes # (auto) 2.33 K/uL (1.20-3.40); Lymphocytes % (auto) 30.1 %; Mean Corpuscular Hemoglobin 25.3 pg (25.0-34.0); Mean Corpuscular Hgb Conc 30.4 g/dL (32.0-36.0); Mean Corpuscular Volume 83.2 fL (80.0-100.0); Mean Platelet Volume 9.8 fL (9.4-12.4); Monocytes # (auto) 0.94 K/uL (0.11-0.59); Monocytes % (auto) 12.1 %; Neutrophils # (auto) 4.03 K/uL (1.40-6.50); Neutrophils % (auto) 52.1 %; Nucleated RBC # (auto) 0.02 K/uL (0.00-0.12); Nucleated RBC % (auto) 0.3 %; Platelet Count 306 K/uL (130-400); RDW Coefficient of Variation 16.9 % (11.5-14.5); Red Blood Count 3.16 M/uL (4.20-5.40); White Blood Count 7.74 K/ul (4.8-10.8)
[2024-04-01] MEDS: MAGNESIUM OXIDE 400 MG TAB PO SCH (08:30)
--- NOTE | 2024-04-01 09:11 | Discharge Summary ---
Date of Service April 01, 2024 Admission HPI Per Admitting Provider Leona is a 63-year-old female with a past medical history significant for paroxysmal atrial fibrillation (on Eliquis), bilateral carotid artery stenosis status post bilateral carotid artery stent placement with Dr. Sheldon in 2022 (on aspirin and Plavix (, hypertension, paroxysmal SVT, nonobstructive coronary artery disease, DM type II, history of MSSA infection of previous spinal surgery wound (on chronic doxycycline), severe sleep apnea, hypothyroidism, COPD who presented to the [facility] ED on 03/30/2024 at the recommendation of her PCP after outpatient labs showed a hemoglobin of 6.2 She remained stable in the ED. Labs were significant for hemoglobin 6.2, (down from 8.6 as of 03/08/2024), and UA with cloudy urine, 2+ LE, 1120 WBC, 1120 epithelial cells, and 2+ bacteria. Prior to admission the patient was consented for blood, type/screen and cross were obtained, and the patient was ordered 2 units of packed red blood cells to be given initially. Patient was sitting in bed in no acute distress at time of exam. States she was called and told to come to the ED due to the low hemoglobin. She has been experiencing some fatigue, mild dyspnea on exertion, and feeling cold over the past month or so. Has been having some reflux symptoms but has still been taking her esomeprazole and as needed Carafate. Confirm she is on Eliquis, aspirin, and Plavix and had her a.m. doses of all today. Denies recent fever, chills, chest pain, cough, abdominal pain, vomiting, dysuria/hematuria, bloody bowel movements or melena, and recent trauma. She is scheduled to have her first appointment with [facility] gastroenterology in April. She confirms that she is a full code and her is her primary decision-maker if she cannot make decisions for self. Please refer to Dr. Escobar's attestation for any changes to the treatment plan Principal Diagnosis Iron Deficiency anemia Discharge Exam Constitutional WD/WN, vitals as above Eyes PERRL, conjunctivae normal, anicteric sclerae Respiratory normal respiratory effort, lungs clear to auscultation Cardiovascular RRR, no murmur, no edema Skin no rashes, warm and dry Psychiatric A+Ox3, euthymic affect Discharge Data Allergies Allergy/AdvReac Type Severity Reaction Status Date / Time bee pollen Allergy Severe Anaphylaxis Verified 03/30/24 16:55 fentanyl Allergy Severe Severe Verified 03/30/24 16:55 sedation, resp depression (only with patches) Penicillins Allergy Severe Anaphylaxis Verified 03/30/24 16:55 pregabalin Allergy Severe Shortness Verified 03/30/24 16:55 of breath honey Allergy Intermediate Hives Verified 03/30/24 16:55 adhesive Allergy Mild Blister Verified 03/30/24 16:55 (wipe some plastic tape) oxcarbazepine AdvReac Severe Severe Verified 03/30/24 16:55 [From Trileptal] stomach issues sulfamethoxazole AdvReac Severe Severe Verified 03/30/24 16:55 nausea trimethoprim AdvReac Severe Severe Verified 03/30/24 16:55 nausea buprenorphine [From Suboxone] AdvReac Intermediate Vomiting, Verified 03/30/24 16:55 skin problems clindamycin AdvReac Intermediate Diarrhea Verified 03/30/24 16:55 fluticasone AdvReac Intermediate Severe Verified 03/30/24 16:55 thrush ketorolac AdvReac Intermediate Migraine Verified 03/30/24 16:55 levofloxacin [From Levaquin] AdvReac Intermediate IBS ("can Verified 03/30/24 16:55 only tolerate for 5 days") naloxone [From Suboxone] AdvReac Intermediate Severe Verified 03/30/24 16:55 nausea, SKIN PROBLEMS ondansetron [From Zofran] AdvReac Intermediate Migraine Verified 03/30/24 16:55 saccharin [From Sweeta] AdvReac Intermediate Severe Verified 03/30/24 16:55 vomiting salmeterol AdvReac Intermediate Severe Verified 03/30/24 16:55 thrush cephalexin AdvReac Mild Nausea Verified 03/30/24 16:55 Consultations 03/30/24 16:38 ED Decision to Admit Stat 03/30/24 17:12 Consult Gastroenterology Routine 04/01/24 09:00 Consult [facility] operator vacuum Routine Ordered Studies Chest X-Ray 03/30/24 17:19 SINGLE VIEW CHEST CLINICAL HISTORY: Dyspnea FINDINGS: An AP, portable, upright chest radiograph is compared to study dated 04/18/2020 and correlated with chest CT dated 10/26/2022. The examination is degraded by portable technique and apical lordotic positioning. The heart is enlarged noting atherosclerotic calcification of the thoracic aorta. The pulmonary vasculature is noncongested. Chronic interstitial thickening is similar to previous. Scarring/atelectasis is noted at the lung bases. The lungs and pleural spaces are otherwise clear. No pneumothorax is seen. The skeletal structures are osteopenic. The bony thorax is grossly intact. Advanced arthritic change is seen in the shoulders. Fusion hardware is noted in the cervical spine. IMPRESSION: Cardiomegaly with no active disease in the chest. ACT 112: Negative or not required by law. Electronically signed by: Milad Lees M.D. 03/30/2024 6:06 PM 04/01/24 05:45 04/01/24 05:43 Vital Signs Temp 36.6 C 04/01/24 09:28 Pulse 66 04/01/24 09:28 Resp 18 04/01/24 09:28 BP 131/76 04/01/24 09:28 Pulse Ox 100 04/01/24 09:28 O2 Del Method Room Air 04/01/24 08:06 O2 Flow Rate 3 04/01/24 07:28 Hospital Course (1) Anemia: Patient presented to ED on 03/30 following results of outpatient labs. She had hgb outpatient that was low at 6.3. She was given 2 units PRBCs on 03/30 with improvement of her hgb to 7.7. Iron studies found to be low on 03/30 consistent of iron 17, TIBC 467, transferrin 4%, and ferritin 4.5. She was given a dose of IV venofer on 03/31. On 04/01 her hgb improved to 8.0. GI was consulted who recommended no urgent procedures and to follow up outpatient for a capsule endoscopy. Patient denied any overt signs of bleeding. Her Aspirin, Eliquis, and Plavix were resumed on discharge. Patient typically does follow with [facility] hematology. She states she would like to transfer to [facility] hematology if her insurance allows it. 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 (2) Bilateral carotid artery stenosis: Patient is status post bilateral carotid artery stent placement with Dr. Sheldon on 12/01/2022. Aspirin and Plavix resumed on 04/01. (3) AF (paroxysmal atrial fibrillation): Patient was in normal sinus rhythm during her hospital stay. She resumed her eliquis outpatient. She can discuss with PCP further dosing adjustments of this. Metoprolol was continued. Plan Chronic conditions: Type 2 Diabetes: home medications resumed upon discharge O2 therapy at home: continue 3 L NC at bedtime Chronic antibiotic suppression: PO doxycycline resumed upon discharge. Total Time Total Time Spent Total Time Spent (In Minutes): 40 Total Time Includes: Examination of the Patient, Discharge Planning, Medication Reconciliation and Communication With Other Providers Discharge Plan Discharge Items Patient Disposition: Home - Self-Care Reason For Visit: BLOOD LOSS ANEMIA Discharge Diagnosis: Acute on Chronic Iron deficiency anemia Activity: Resume your previous activity Non-emergency contact: Primary Care Provider Call non-emergency contact if: you have any medication questions and your symptoms worsen Follow-up/Referrals: Gerda Johnson DO [Primary Care Provider] - 04/23/24 9:20 am Diet: Carb Consistent or DM2 and Heart Healthy Ambulatory Orders: Complete Blood Count with Diff (Timed) Timeframe: 20240413 Location: Determined by Patient Ordered By: Erinn Tam Complete Blood Count with Diff (Timed) Timeframe: 20240413 Location: Determined by Patient Ordered By: Erinn Tam Addtl Attending Provider Instructions: Mrs. Ortiz, You were recently hospitalized due to low blood counts. You received 2 units of blood and a dose of IV iron. Your blood counts have stabilized upon discharge. Please see recommendations below regarding your discharge. 1. You may resume your Plavix, Eliquis, and Aspirin 2. Please follow up with GI regarding the small bowel capsule endoscopy 3. Someone will be in contact with you regarding if we can accept your insurance at our hematology department. 4. Please repeat your blood counts in 1 week. The results will be sent to your PCP. 5. You may resume previous outpatient medications as prescribed. Please follow up with your PCP within 1-2 weeks. If you develop chest pain, shortness of breath, increasing fatigue/weakness please report back to the ED for further evaluation. Sincerely, Erinn Tam PA-C Pending Studies at Discharge: No Stand-Alone Forms: [employer], Smoking Cessation Medications and DC Order Prescriptions: Continued albuterol sulfate 2.5 mg/0.5 mL solution for nebulization 2.5 mg INHALATION QID PRN (Reason: Wheezing) Qty: 30 5RF mometasone 0.1 % cream 1 applic topical DAILY PRN (Reason: allergic reaction) Qty: 15 3RF Rx Instructions: Apply to affected ear once daily as needed for itching cholecalciferol (vitamin D3) 250 mcg (10,000 unit) tablet 500 mcg PO DAILY cyanocobalamin (vitamin B-12) 500 mcg tablet 1,000 mcg PO DAILY Qty: 60 5RF duloxetine [Cymbalta] 60 mg capsule,delayed release(DR/EC) 60 mg PO BID Qty: 60 11RF montelukast [Singulair] 10 mg tablet 10 mg PO QAM Qty: 90 1RF pravastatin 40 mg tablet 40 mg PO HS Qty: 90 3RF ezetimibe [Zetia] 10 mg tablet 10 mg PO HS Qty: 90 3RF Ozempic 1 mg/dose (4 mg/3 mL) pen injector 1 mg subcut WK Qty: 3 3RF Patient Comments: takes on wednesdays > last dose 10/19/23 Rx Instructions: WEDNESDAYS hydroxyzine pamoate [Vistaril] 25 mg capsule 25 mg PO TID PRN (Reason: Anxiety) Qty: 60 5RF levothyroxine 200 mcg tablet 200 mcg PO QAM Qty: 90 1RF Rx Instructions: please change to 90 day supply trazodone 100 mg tablet 300 mg PO HS 90 Days Qty: 270 2RF silver sulfadiazine [Silvadene] 1 % cream 1 applic topical DAILY PRN (Reason: wound healing) Qty: 50 1RF Patient Comments: finished with this 10/26/23 Rx Instructions: apply a 1.5 mm thickness esomeprazole magnesium [Nexium] 40 mg capsule,delayed release(DR/EC) 40 mg PO BID Qty: 180 1RF levocetirizine [Xyzal] 5 mg tablet 5 mg PO HS Qty: 90 1RF folic acid 1 mg tablet 1 mg PO QAM Qty: 90 3RF gabapentin 800 mg tablet 800 mg PO UD Qty: 105 3RF Rx Instructions: 800 mg PO 1 tablet QAM, 1 tablet QPM, and 1.5 tablet HS; (VERIFIED PAT 11/24/22) sucralfate [Carafate] 1 gram tablet 1 g PO BID PRN (Reason: Acid Reflux) Qty: 60 0RF Eliquis 5 mg tablet 5 mg PO BID Qty: 90 1RF Patient Comments: TO BE STOPPED DAY BEFORE SURGERY PER DR SHELDON , TAKE NONE ON THE / DR PATTERSON IS ALSO AWARE buspirone 10 mg tablet See Rx Instructions .ROUTE .COMPLEX Qty: 405 1RF Rx Instructions: Take 1 tab PO in AM and afternoon, 1.5 tabs PO QHS nitroglycerin [Nitrostat] 0.4 mg tablet, sublingual 0.4 mg Sublingual UD PRN (Reason: Pain) Qty: 25 5RF Patient Comments: HAVEN'T USED IN AGES epinephrine [EpiPen 2-Manny] 0.3 mg/0.3 mL auto-injector 0.3 mg IM Q10M PRN (Reason: anaphylaxis) Qty: 2 1RF Rx Instructions: for 2 doses magnesium oxide 400 mg magnesium tablet 400 mg PO TID Qty: 270 1RF oxycodone 10 mg tablet 10 mg PO Q8H PRN (Reason: pain, severe) Qty: 90 0RF benzonatate 200 mg capsule 200 mg PO BID PRN (Reason: cough) Qty: 30 4RF doxycycline hyclate 100 mg capsule 100 mg PO QPM adalimumab 40 mg/0.8 mL syringe kit 40 mg subcut Q14D Rx Instructions: EVERY OTHER TUESDAY metoprolol succinate 25 mg tablet extended release 24 hr 25 mg PO BID Qty: 180 3RF Hold Instructions: hypotensive betamethasone dipropionate 0.05 % cream 1 applic topical BID PRN (Reason: skin irritation) Qty: 45 0RF clobetasol 0.05 % lotion 1 applic TOP BID PRN (Reason: itching) 14 Days Qty: 59 3RF clobetasol 0.05 % cream 1 applic topical BID PRN (Reason: rash) Qty: 60 1RF Trelegy Ellipta 100-62.5-25 mcg blister with device 1 inh INH QAM Qty: 60 5RF albuterol sulfate 90 mcg/actuation HFA aerosol inhaler 2 puff INHALATION Q6H PRN (Reason: Wheezing) Qty: 18 5RF valacyclovir [Valtrex] 1 gram tablet 1,000 mg PO TID PRN (Reason: NEEDED) Patient Comments: finished with this was for shingles in May 2023 clotrimazole-betamethasone 1-0.05 % cream 1 applic topical BID Qty: 45 0RF Rx Instructions: STARTED 03/27/24 FOR 14 DAYS. methocarbamol 500 mg tablet 1,000 mg PO QID 30 Days Qty: 240 1RF nystatin 100,000 unit/gram powder 1 applic topical BID Qty: 30 2RF Rx Instructions: STARTED 03/27/24 FOR 14 DAYS. guaifenesin [Mucinex] 1,200 mg Tablet Extended Release 12hr 1,200 mg PO Q12H PRN (Reason: Nasal Congestion) aspirin 81 mg Capsule 81 mg PO QAM clopidogrel [Plavix] 75 mg tablet 75 mg PO QAM oxybutynin chloride 5 mg tablet 5 mg PO BID Nurtec ODT 75 mg tablet,disintegrating 75 mg PO .COMPLEX PRN (Reason: Migraine Headache) Rx Instructions: 75 mg orally PRN at onset of migraine. 1 in 24 hours.; limit 2-3 days a week No Action (DME) Hospital Bed Misc See Rx Instructions .ROUTE .MEDSUPPLY Qty: 1 0RF Rx Instructions: Dx: M19.90, M96.1, M51.9, M48.02, M48.04, J44.9 (DME) blood-glucose meter [place]OneTouch Verio Meter[place] [facility] [place] Instructions .ROUTE .MEDSUPPLY Qty: 1 0RF Rx Instructions: As directed (DME) lancets [OneTouch Delica Lancets] 30 [place] [facility] [place] Dose Instructions .ROUTE .MEDSUPPLY Qty: 200 4RF Dose Instruction: As directed Rx Instructions: testing four times per day. (DME) blood sugar diagnostic Strip See Dose Instructions .ROUTE .MEDSUPPLY Qty: 100 5RF Dose Instruction: As directed Rx Instructions: testing four times per day. (DME) Oxygen Home Liters Per Minute See Rx Instructions .ROUTE .MEDSUPPLY Dose Instruction: As directed Rx Instructions: 3LPM via [place] @ . (DME) CPAP Machine Misc .Route Qty: 1 0RF Rx Instructions: CPAP 10 cm of water with oxygen bleed at 1 L/min, mask fit patient comfort, heated modification, compliance download capabilities, DME: [facility] medical equipment Discharge Orders: Discharge Order (Routine); Ordered 04/01/24 Ordered By: Erinn Henderson/Other Patient Handouts: Anemia Admission Data Admit Date/Time: 03/30/24 16:53 Attending Provider: Vandana Schafer Admit Provider: Frank Escobar Primary Care Provider: Gerda Johnson Other Providers: Frank Escobar; Nick Wells Other Interventions: Discharge Summary Assessment (RN) Last Done: 04/01/24 09:28 Coding Level of Care Code 45718 INP/OBS DISCH >30 MIN Diagnoses Iron deficiency anemia due to chronic blood loss D50.0 Anemia type: iron deficiency Iron deficiency anemia type: chronic blood loss Bilateral carotid artery stenosis I65.23 AF (paroxysmal atrial fibrillation) I48.0
== END 2024-04-01 10:31 | disposition home or self-care (01) | DRG 812 ==
LOC: ED 14:32 → SUATTDRO 16:53 → 2N 16:53

== ENCOUNTER 2024-05-02 09:41 | Inpatient (IN) ==
--- NOTE | 2024-04-25 16:51 | Anesthesiology Consultation ---
Date of Service April 25, 2024 Assessment & Plan (1) Encounter for pre-operative examination: Chart Review Chart Review: Acceptable Risk for Surgery and Patient NOT seen in Pre Admission Testing Patient with known anemia. Will order CBC on arrival and ensure patient is type and crossmatched prior to going back to OR. Consults Requested none History Surgery Operation Date: 05/02/24 13:00 Proposed Procedures p Redo Left Transcarotid Artery Revascularization - Celso Aiken MD Height/Weight Height: 5 ft 4.5 in Weight: 112.491 kg Allergies Allergy/AdvReac Type Severity Reaction Status Date / Time bee pollen Allergy Severe Anaphylaxis Verified 04/25/24 08:39 fentanyl Allergy Severe Severe Verified 04/25/24 08:39 sedation, resp depression (only with patches) Penicillins Allergy Severe Anaphylaxis Verified 04/25/24 08:39 pregabalin Allergy Severe Shortness Verified 04/25/24 08:39 of breath honey Allergy Intermediate Hives Verified 04/25/24 08:39 adhesive Allergy Mild Blister Verified 04/25/24 08:39 (wipe some plastic tape) oxcarbazepine AdvReac Severe Severe Verified 04/25/24 08:39 [From Trileptal] stomach issues sulfamethoxazole AdvReac Severe Severe Verified 04/25/24 08:39 nausea trimethoprim AdvReac Severe Severe Verified 04/25/24 08:39 nausea buprenorphine [From Suboxone] AdvReac Intermediate Vomiting, Verified 04/25/24 08:39 skin problems clindamycin AdvReac Intermediate Diarrhea Verified 04/25/24 08:39 fluticasone AdvReac Intermediate Severe Verified 04/25/24 08:39 thrush ketorolac AdvReac Intermediate Migraine Verified 04/25/24 08:39 levofloxacin [From Levaquin] AdvReac Intermediate IBS ("can Verified 04/25/24 08:39 only tolerate for 5 days") naloxone [From Suboxone] AdvReac Intermediate Severe Verified 04/25/24 08:39 nausea, SKIN PROBLEMS ondansetron [From Zofran] AdvReac Intermediate Migraine Verified 04/25/24 08:39 saccharin [From Sweeta] AdvReac Intermediate Severe Verified 04/25/24 08:39 vomiting salmeterol AdvReac Intermediate Severe Verified 04/25/24 08:39 thrush cephalexin AdvReac Mild Nausea Verified 04/25/24 08:39 Medications Home Medications Medication Instructions Recorded Confirmed Last Taken Hospital Bed Homecare (Hospital #1 ea 11/14/19 04/23/24 Unknown Bed) [facility] 04/23/24 Unknown Verio Meter) doxycycline hyclate 100 mg capsule 100 mg PO QPM 06/17/21 04/25/24 03/29/24 lancets 30 gauge [facility] 06/19/21 04/23/24 Unknown Lancets) albuterol sulfate 2.5 mg/0.5 mL 2.5 mg (0.5 mL) inhalation QID PRN 07/13/21 04/25/24 01/19/23 08:00 solution for nebulization Wheezing #30 ea guaifenesin 1,200 mg tablet, 1,200 mg PO Q12H PRN Nasal 11/11/21 04/25/24 10/30/23 extended release 12 hr (Mucinex) Congestion CPAP Machine #1 ea 08/02/22 04/23/24 Unknown mometasone 0.1 % topical cream 1 applic topical DAILY PRN 10/22/22 04/25/24 01/13/23 allergic reaction #15 grams aspirin 81 mg capsule 81 mg PO QAM 12/01/22 04/25/24 03/30/24 cholecalciferol (vitamin D3) 250 500 mcg PO DAILY 01/24/23 04/25/24 03/30/24 mcg (10,000 unit) tablet cyanocobalamin (vitamin B-12) 500 1,000 mcg (2 x 500 mcg) PO DAILY 03/15/23 04/25/24 03/30/24 mcg tablet #60 tabs blood sugar diagnostic #100 ea 05/12/23 04/23/24 Unknown Oxygen Home 05/17/23 04/23/24 Unknown adalimumab 40 mg/0.8 mL 40 mg subcut WK 05/17/23 04/25/24 03/17/24 subcutaneous syringe kit betamethasone dipropionate 0.05 % 1 applic topical BID PRN skin 05/25/23 04/25/24 Unknown topical cream irritation #45 grams duloxetine 60 mg capsule,delayed 60 mg PO BID #60 caps 07/01/23 04/25/24 03/30/24 08:00 release (Cymbalta) metoprolol succinate 25 mg 25 mg PO BID #180 tabs 08/19/23 04/25/24 03/30/24 0 8:00 tablet,extended release 24 hr clopidogrel 75 mg tablet (Plavix) 75 mg PO QAM 10/26/23 04/25/24 03/30/24 rimegepant 75 mg disintegrating 75 mg PO .COMPLEX PRN Migraine 10/26/23 04/25/24 Unknown tablet (Nurtec ODT) Headache montelukast 10 mg tablet 10 mg PO QAM #90 tabs 11/10/23 04/25/24 03/30/24 (Singulair) albuterol sulfate 90 mcg/actuation 2 puff inhalation Q6H PRN Wheezing 11/22/23 04/25/24 Unknown aerosol inhaler #18 grams clobetasol 0.05 % lotion 1 applic topical BID PRN itching 2 11/22/23 04/25/24 Unknown weeks #59 mL clobetasol 0.05 % topical cream 1 applic topical BID PRN rash #60 11/22/23 04/25/24 Unknown grams fluticasone fur. 100 mcg-umeclid 1 inh inhalation QAM #60 ea 11/22/23 04/25/24 03/30/24 62.5 mcg-vilant 25 mcg inhalat.powder (Trelegy Ellipta) ezetimibe 10 mg tablet (Zetia) 10 mg PO HS #90 tabs 12/09/23 04/25/24 03/29/24 pravastatin 40 mg tablet 40 mg PO HS #90 tabs 12/09/23 04/25/24 03/29/24 hydroxyzine pamoate 25 mg capsule 25 mg PO TID PRN Anxiety #60 caps 01/02/24 04/25/24 Unknown (Vistaril) levothyroxine 200 mcg tablet 200 mcg PO QAM #90 tabs 01/09/24 04/25/24 03/30/24 trazodone 100 mg tablet 300 mg (3 x 100 mg) PO HS 90 days 01/12/24 04/25/24 03/29/24 #270 tabs esomeprazole magnesium 40 mg 40 mg PO BID #180 caps 01/26/24 04/25/24 03/30/24 08:00 capsule,delayed release (Nexium) folic acid 1 mg tablet 1 mg PO QAM #90 tabs 01/26/24 04/25/24 03/30/24 levocetirizine 5 mg tablet (Xyzal) 5 mg PO HS #90 tabs 01/26/24 04/25/24 03/29/24 silver sulfadiazine 1 % topical 1 applic topical DAILY PRN wound 01/26/24 04/25/24 Unknown cream (Silvadene) healing #50 grams apixaban 5 mg tablet (Eliquis) 5 mg PO BID #90 tabs 02/01/24 04/25/24 03/30/24 08:00 buspirone 10 mg tablet See Rx Instructions .Route 02/01/24 04/25/24 03/30/24 08:00 .COMPLEX #405 tabs gabapentin 800 mg tablet 800 mg PO UD #105 tabs 02/01/24 04/25/24 03/30/24 08:00 sucralfate 1 gram tablet (Carafate) 1 g PO BID PRN Acid Reflux #60 tabs 02/01/24 04/25/24 Unknown epinephrine 0.3 mg/0.3 mL 0.3 mg (0.3 mL) IM Q10M PRN 02/10/24 04/25/24 Unknown injection, auto-injector (EpiPen anaphylaxis #2 ea 2-Manny) nitroglycerin 0.4 mg sublingual 0.4 mg sublingual UD PRN Pain #25 02/10/24 04/25/24 Unknown tablet (Nitrostat) tabs magnesium oxide 400 mg PO TID #270 tabs 02/15/24 04/25/24 03/30/24 08:00 benzonatate 200 mg capsule 200 mg PO BID PRN cough #30 caps 03/19/24 04/25/24 Unknown clotrimazole-betamethasone 1 1 applic topical BID #45 grams 03/26/24 04/25/24 03/30/24 08:00 %-0.05 % topical cream valacyclovir 1 gram tablet 1,000 mg PO TID PRN NEEDED 03/26/24 04/25/24 Unknown (Valtrex) methocarbamol 500 mg tablet 1,000 mg (2 x 500 mg) PO QID 30 03/27/24 04/25/2424 08:00 days #240 tabs nystatin 100,000 unit/gram topical 1 applic topical BID #30 grams 03/27/24 04/25/24 03/30/24 08:00 powder semaglutide 1 mg/dose (4 mg/3 mL) 1 mg (0.75 mL) subcut WK #3 mL 04/09/24 04/25/24 Unknown subcutaneous pen injector (Ozempic) oxycodone 10 mg tablet 10 mg PO Q8H PRN pain, severe #90 04/12/24 04/25/24 Unknown tabs oxybutynin chloride 5 mg tablet 5 mg PO BID #30 tabs 04/16/24 04/25/24 Unknown Past Medical History Medical History Thoracic spinal stenosis Type 2 diabetes mellitus Severe sleep apnea O2 2-5 L at night, no cpap, follows pulm Dr. Dr. Chan Neurogenic claudication Obesity hypoventilation syndrome On home oxygen therapy 2-5 l nc at night Lumbar disc disease Hypothyroidism (acquired) Hypomagnesemia History of left common carotid artery stent placement (01/20/23) Hx of gastritis Failed back syndrome CAD (coronary artery disease) Chronic low back pain Chronic interstitial cystitis Chronic hyponatremia Chronic anticoagulation Chronic antibiotic suppression Cervical radiculopathy limited rom Ataxia Anxiety Allergic rhinitis Paroxysmal atrial fibrillation IBS (irritable bowel syndrome) DJD of both shoulders "bone on bone" unable to have surgery due to blood thinners, has chronic pain both arms Chronic diarrhea Iron deficiency Last iron infusion on 04/20/24 at [facility] Anemia (03/31/24) recently admitted to [facility], has had 6 units PRBC's recently. Will have 1 unit PRBC at [facility] on 04/27/[address] Dickson History of dysphagia History of esophageal dilatation (10/31/23) Incontinence sees Dr. Bellamy Insomnia Hx of migraines rare Osteoarthritis Rheumatoid arthritis follows with pancho Gonzales at [facility] Psoriatic arthritis Depression Hyperlipidemia Hypertension GERD (gastroesophageal reflux disease) Diabetic neuropathy COPD (chronic obstructive pulmonary disease) chronic cough, has been using inhalers frequently, follows with Dr. Chan, O2 3-5 L nc at bedtime Clotting disorder per Dr. Dickson, per pt, unsure what type TIA (transient ischemic attack) (2013) 2013 > no residual effects - follows with dr. velázquez History of seizures Age 3 (in setting of fever/measles) > nothing since Meralgia paresthetica of right side Follows with neuro - Dr. Velázquez Mixed hearing loss of right ear No hearing aids History of NE (myocardial infarction) (2009) 2009 > nothing since > no stents Personal history of pulmonary embolism (2013) 2013 > treated with blood thinners - eliquis Personal history of skin cancer s/p excision from RLE Carotid artery narrowing Hx of thyroid cancer (2015) s/p thyroidectomy + XRT (one round) Hx of deep venous thrombosis 2013 > from Thrombophlebitis follows with Dr. Dickson Hospital stay March 2024: Hospital Course (1) Anemia: Patient presented to ED on 03/30 following results of outpatient labs. She had hgb outpatient that was low at 6.3. She was given 2 units PRBCs on 03/30 with improvement of her hgb to 7.7. Iron studies found to be low on 03/30 consistent of iron 17, TIBC 467, transferrin 4%, and ferritin 4.5. She was given a dose of IV venofer on 03/31. On 04/01 her hgb improved to 8.0. GI was consulted who recommended no urgent procedures and to follow up outpatient for a capsule endoscopy. Patient denied any overt signs of bleeding. Her Aspirin, Eliquis, and Plavix were resumed on discharge. Patient typically does follow with [facility] hematology. She states she would like to transfer to [facility] hematology if her insurance allows it. 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 (2) Bilateral carotid artery stenosis: Patient is status post bilateral carotid artery stent placement with Dr. Aiken on 12/01/2022. Aspirin and Plavix resumed on 04/01. (3) AF (paroxysmal atrial fibrillation): Patient was in normal sinus rhythm during her hospital stay. She resumed her eliquis outpatient. She can discuss with PCP further dosing adjustments of this. Metoprolol was continued. Past Family History Family History Mother Diabetes Family history of diabetes mellitus Cardiac disorder Heart trouble Myocardial infarction Renal failure Family history of reaction to anesthesia nausea/vomiting Hypertension Stroke Gallbladder disease Grandfather Family hx of colon cancer Myocardial infarction Father Colon cancer Cardiac disorder Kidney stones Heart trouble Myocardial infarction Degenerative disc disease Lung disease Hypertension Stroke Aunt Colon cancer Diabetes Grandmother (Maternal) Degenerative disc disease Cancer Sister Diabetes Family history of diabetes mellitus Breast cancer Cancer Hypertension Gallbladder disease Family/Other Kidney disease Brother Multiple sclerosis Uncle Myocardial infarction Grandfather (Maternal) Family history of diabetes mellitus Aunt Diabetes Aunt Diabetes Aunt Diabetes Aunt Diabetes Aunt Diabetes Other Dementia Denies family history of Ovarian cancer Prostate cancer Adverse effect of anesthesia Bleeding disorder Past Surgical History Surgical History History of esophagogastroduodenoscopy (EGD) History of right common carotid artery stent placement (12/01/22) trung EV[facility], Dr Aiken History of tonsillectomy H/O colonoscopy with polypectomy History of cystoscopy Multiple History of incision and drainage (08/11/20) I&D lumbar spine incision w/ placement of abx beads and wound vac - NO CURRENT WOUND VAC/ANTIBIOTIC DAILY (DOXYCYCLINE chronic) H/O cataract extraction R/L S/P dilatation and curettage S/P section x2 History of thyroidectomy, total (2015) History of knee replacement R/L History of placement of ear tubes R/L History of cervical spinal surgery x2; limited rom-right is ok to shoulder, left is better than right History of breast biopsy Left (benign) History of appendectomy History of back surgery x 6 total lumbar (including fusion) History of cardiac cath x7 (09/2012 > no stents)- all at [place] except for 1 at [facility] (2009, [place])- Follows with [facility] (q 6 months last seen January 2024) Right TCAR 12/01/[address] Aiken at [facility]. GETA. A line. No reported anesthesia issues. Social History Smoking Status: Current every day smoker tobacco type: cigarettes Smoking cigarettes per day: Vapes daily (advised) Do You Dip or Chew Tobacco: No Hx Alcohol Use: No Hx Substance Use: Yes substance use type: does not use, former substance user and marijuana Testing Laboratory Results Laboratory Tests 04/01/24 04/01/24 05:43 05:45 WBC 7.74 Hgb 8.0 L Hct 26.3 L Plt Count 306 Sodium 137 Potassium 4.8 Chloride 100 Carbon Dioxide 33 H BUN 15 Creatinine 1.00 Glucose 105 H Electrocardiogram Date: 03/30/24 Chest X-Ray DICTATED BY: Ajay Plaza MD Test Reason : Blood Pressure : / mmHG Vent. Rate : 077 BPM Atrial Rate : 077 BPM P-R Int : 136 ms QRS Dur : 068 ms QT Int : 384 ms P-R-T Axes : 035 028 016 degrees QTc Int : 434 ms Normal sinus rhythm Nonspecific ST abnormality Abnormal ECG When compared with ECG of 21-DEC-2021 09:27, No significant change was found Confirmed by Ajay Plaza ([id number]) on 03/31/2024 11:45:42 AM Other Testing Echocardiogram Date: 11/22/18 EF: 55-60% Other Findings: + LVH (mild)
--- NOTE | 2024-05-02 07:48 | History & Physical Report ---
Date of Service May 02, 2024 History of Present Illness Primary Care Provider: Gerda Johnson DO Name: YUMI DOWLING Patient Number: [id number] : [id number] Date of Service: 04/24/2024 Chief Complaint: _Follow-up after CT scan HPI: _Ms. Tonia Carrington is an elderly female who [facility] for a follow-up visit after undergoing a CTA of her neck to better evaluate her previously placed carotid stents. As you may remember, patient is status post right TCAR procedure in November 2022, and a left TCAR procedure in January 2023. Postoperative imaging had indicated possible restenosis in her stents, which were evaluated with a CTA last summer when found to be more related to severe tortuosity than true restenosis. Upon returning for a follow-up appointment here few weeks ago, she was found to have extremely elevated velocities in her carotid stents and sent for a CTA again to better evaluate. Patient denies any new symptoms of cerebrovascular insufficiency including amaurosis, extremity weakness numbness or tingling, difficulty speaking or swallowing, facial droop, sudden onset confusion, other complaints. She has remained on her aspirin, Plavix, and statin medications in addition to her chronic Eliquis. She is still under investigation for causes of severe GI bleeding resulting in hemoglobins as low as 6 and requiring significant transfusions in the past few months. CTA imaging performed at [facility] indicates no significant re stenosis in the right TCAR stent, but does demonstrate severe stenosis at the distal end of her left TCAR stent and just distal to the stent. Current Home Meds: (Last Updated 03/26 15:13) DULoxetine (DULoxetine 60 mg oral delayed release capsule) TAKE ONE CAPSULE BY MOUTH TWICE DAILY adalimumab (Humira Pen (citrate free) 40 mg/0.4 mL SQ kit) 40 mg subQ q7days albuterol (albuterol 0.083% for nebulization) 2.5 mg inhaled q6h PRN: as needed for wheezing albuterol (albuterol CFC free 90 mcg/inh MDI) 2 puff inhaled qid PRN: as needed for wheezing apixaban (apixaban 5 mg oral tablet) 5 mg PO bid aspirin (Aspirin Low Dose 81 mg oral delayed release tablet) 1 tab PO Daily benzonatate (benzonatate 200 mg oral capsule) 200 mg PO tid busPIRone (busPIRone 10 mg oral tablet) 10 mg PO tid cholecalciferol (cholecalciferol 25 mcg (1000 intl units) oral tablet) 25 mcg PO Daily clobetasol topical (clobetasol 0.05% topical lotion) 1 appl topical Daily clopidogrel (Plavix 75 mg oral tablet) 1 tab PO Daily cyanocobalamin (cyanocobalamin 500 mcg oral tablet) 500 mcg PO Daily doxycycline (doxycycline hyclate 100 mg oral tablet) TAKE ONE TABLET BY MOUTH EVERY DAY esomeprazole (esomeprazole 40 mg oral delayed release capsule) TAKE ONE CAPSULE BY MOUTH TWICE DAILY ezetimibe (ezetimibe 10 mg oral tablet) TAKE ONE TABLET BY MOUTH AT BEDTIME ferrous sulfate (ferrous sulfate 325 mg (65 mg elemental iron) oral delayed release tablet) 325 mg PO tid fluticasone/umeclidinium/vilanterol (fluticasone/umeclidinium/vilanterol 100 mcg-62.5 mcg-25 mcg/inh inhalation powder) 1 puff inhaled Daily folic acid (folic acid 1 mg oral tablet) 1 mg PO Daily guaiFENesin (guaiFENesin 1200 mg oral tablet, extended release) 1,200 mg PO q12h hydrOXYzine (hydrOXYzine pamoate 25 mg oral capsule) 25 mg PO tid PRN: as needed for anxiety levocetirizine (levocetirizine 5 mg oral tablet) TAKE ONE TABLET BY MOUTH AT BEDTIME levothyroxine (levothyroxine 200 mcg (0.2 mg) oral tablet) TAKE ONE TABLET BY MOUTH IN THE MORNING levothyroxine 75 mcg PO Daily loperamide 2 mg PO q6h PRN: as needed for loose stool magnesium oxide (magnesium oxide 400 mg (241.3 mg elemental magnesium) oral tablet) 400 mg PO tid methocarbamol (methocarbamol 500 mg oral tablet) 1,000 mg PO qid metoprolol (metoprolol succinate 25 mg oral tablet, extended release) 25 mg PO bid mometasone topical (mometasone 0.1% topical cream) 1 appl topical Daily montelukast (montelukast 10 mg oral tablet) 10 mg PO qPM mupirocin topical (mupirocin 2% topical ointment) 1 appl topical tid nitroglycerin (nitroglycerin 0.4 mg sublingual tablet) 0.4 mg SL q5min PRN: as needed for chest pain nystatin topical (nystatin 100,000 units/g topical powder) oxyCODONE (oxyCODONE 10 mg oral tablet) 10 mg PO q6h PRN: Pain oxybutynin (oxybutynin 5 mg oral tablet) TAKE ONE TABLET BY MOUTH EVERY12 HOURS NEEDED FOR BLADDER SPASMS pravastatin (pravastatin 20 mg oral tablet) TAKE two TABLETs BY MOUTH AT BEDTIME semaglutide (semaglutide 4 mg/3 mL subcutaneous solution) 1 mg subQ q7days sucralfate (sucralfate 1 g oral tablet) TAKE ONE TABLET BY MOUTH TWICE DAILY NEEDED FOR acid reflux traZODone (traZODone 100 mg oral tablet) TAKE four TABLETS BY MOUTH AT BEDTIME Allergies and Sensitivities: fluticasone(Thrush) Allergy Not found in Search(Vomiting) buprenorphine(Vomiting) Bee stings(Anaphylaxis) fentaNYL(Somnolence) fentaNYL(Respiratory depression) penicillin(Anaphylaxis) OXcarbazepine(Diarrhea) OXcarbazepine(Upset stomach) salmeterol(Headache) ketorolac(Headache) naloxone(Nausea) cephalexin(Nausea) clindamycin(Diarrhea) ondansetron(Migraine) levoFLOXacin(Upset stomach) Adhesive bandage(Blisters) pregabalin(Shortness of breath) Bactrim(Nausea) Past Medical History: Problems: Internal carotid artery stent present Tobacco user Carotid stenosis, bilateral OBJECTIVE Vitals: Last Updated 04/24/24 14:04 Date Temp BP Location Pulse RR SpO2 Pain 04/24/24 136/72 Right Arm 68 94 04/24/24 0 03/26/24 132/54 Right Arm Vital Signs are the last 3 documented. No Orthostatic Data Available Height and Weight: Last Updated 02/08/23 13:52 Date BMI Wt(kg) Wt(lb) Method Ht(cm) (ft-in) Method 02/08/23 119 262 Standing Scale 12/23/22 120 264 Standing Scale Heights and Weights are the last 3 documented. Physical Exam Constitutional: In general patient is obese but healthy-appearing well-nourished well-developed elderly female no distress. She is alert and oriented with no focal deficits. She does ambulate with a cane. Her carotids do demonstrate a faint bruit. Her heart is irregular. Her lungs are decreased but clear. Her abdomen is benign. Her neuro exam is intact. ASSESSMENT: _ PLAN: _ 1 ) _left TCAR restenosis Patient is about 15 months status post left TCAR, and unfortunately appears to have a severe restenosis or residual stenosis at the distal end of her stent and just distal to the stent. Due to this finding, and her risk of CVA, we recommend that patient consider undergoing a redo left TCAR procedure in order for us to extend the current stent. The procedure benefits and alternatives were discussed at length with the patient. The risks of the procedure including bleeding, infection, stroke, myocardial infarction, local nerve damage, and were discussed at length with the patient by myself Dr. Aiken's request. Patient expresses understanding and agreement to proceed. This will occur in the next few weeks at the patient's convenience. 2 ) _bilateral carotid stenosis Patient is a little over 1 year status post bilateral TCAR's, now with a left TCAR restenosis. Her right TCAR remains patent. This will be reevaluated at a later date. Patient is advised to call any questions or concerns. She is agreeable this plan. Thank you for letting us participate in the care of this patient. I have personally spent_29__ minutes performing [id number] and itr-jpwu-[id number] activities on this date of service.Time does not include separately reported services. Activities Include: _x_ review of the medical record _x_ obtaining a history _x_ physical exam/evaluation __ review labs _x_ review radiology reports _x_ counseling/educating patient/family/caregiver __ discussion/referral to other healthcare professional _x_ documenting care in the medical record __ independent interpretation of results _x_ communication of results to patient/family/caregiver x__ coordination of care Signature Line Electronic Signature on File CC: Gerda Johnosn DO [address] [facility] [id number] * CC: Ajay Plaza MD [address] [place] [id number] * Electronically Reviewed/Signed by: Theresa Patterson PA-C Author Signature Dt/Tm:04/24/2024 04:45 PM [facility] [place] [address], [address] [place] [id number] LM Result Type: HVI Outpt Note Date of Service: April 24, 2024 16:38 EDT Authorization Status: Final Author or Import Date: HAMILTON Patterson Lynn on April 24, 2024 16:45 EDT Verified By: HAMILTON Patterson Lynn on April 24, 2024 16:45 EDT Encounter info: [id number], [place] [address], Clinic, 04/24/2024 - 04/24/2024 Allergies Allergy/AdvReac Type Severity Reaction Status Date / Time bee pollen Allergy Severe Anaphylaxis Verified 04/25/24 08:39 fentanyl Allergy Severe Severe Verified 04/25/24 08:39 sedation, resp depression (only with patches) Penicillins Allergy Severe Anaphylaxis Verified 04/25/24 08:39 pregabalin Allergy Severe Shortness Verified 04/25/24 08:39 of breath honey Allergy Intermediate Hives Verified 04/25/24 08:39 adhesive Allergy Mild Blister Verified 04/25/24 08:39 (wipe some plastic tape) oxcarbazepine AdvReac Severe Severe Verified 04/25/24 08:39 [From Trileptal] stomach issues sulfamethoxazole AdvReac Severe Severe Verified 04/25/24 08:39 nausea trimethoprim AdvReac Severe Severe Verified 04/25/24 08:39 nausea buprenorphine [From Suboxone] AdvReac Intermediate Vomiting, Verified 04/25/24 08:39 skin problems clindamycin AdvReac Intermediate Diarrhea Verified 04/25/24 08:39 fluticasone AdvReac Intermediate Severe Verified 04/25/24 08:39 thrush ketorolac AdvReac Intermediate Migraine Verified 04/25/24 08:39 levofloxacin [From Levaquin] AdvReac Intermediate IBS ("can Verified 04/25/24 08:39 only tolerate for 5 days") naloxone [From Suboxone] AdvReac Intermediate Severe Verified 04/25/24 08:39 nausea, SKIN PROBLEMS ondansetron [From Zofran] AdvReac Intermediate Migraine Verified 04/25/24 08:39 saccharin [From Sweeta] AdvReac Intermediate Severe Verified 04/25/24 08:39 vomiting salmeterol AdvReac Intermediate Severe Verified 04/25/24 08:39 thrush cephalexin AdvReac Mild Nausea Verified 04/25/24 08:39 Home Medications Medication Instructions Recorded Confirmed Type Hospital Bed Homecare (Hospital #1 ea 11/14/19 04/23/24 Rx Bed) blood-glucose meter ([facility] #1 ea 09/18/20 04/23/24 Rx Verio Meter) doxycycline hyclate 100 mg capsule 100 mg PO QPM 06/17/21 04/25/24 History lancets 30 gauge ([facility] Delica #200 ea 06/19/21 04/23/24 Rx Lancets) albuterol sulfate 2.5 mg/0.5 mL 2.5 mg (0.5 mL) inhalation QID PRN 07/13/21 04/25/24 Rx solution for nebulization Wheezing #30 ea guaifenesin 1,200 mg tablet, 1,200 mg PO Q12H PRN Nasal 11/11/21 04/25/24 History extended release 12 hr (Mucinex) Congestion CPAP Machine #1 ea 08/02/22 04/23/24 Rx mometasone 0.1 % topical cream 1 applic topical DAILY PRN 10/22/22 04/25/24 Rx allergic reaction #15 grams aspirin 81 mg capsule 81 mg PO QAM 12/01/22 04/25/24 History cholecalciferol (vitamin D3) 250 500 mcg PO DAILY 01/24/23 04/25/24 History mcg (10,000 unit) tablet cyanocobalamin (vitamin B-12) 500 1,000 mcg (2 x 500 mcg) PO DAILY 03/15/23 04/25/24 Rx mcg tablet #60 tabs blood sugar diagnostic #100 ea 05/12/23 04/23/24 Rx Oxygen Home 05/17/23 04/23/24 History adalimumab 40 mg/0.8 mL 40 mg subcut WK 05/17/23 04/25/24 History subcutaneous syringe kit betamethasone dipropionate 0.05 % 1 applic topical BID PRN skin 05/25/23 04/25/24 Rx topical cream irritation #45 grams duloxetine 60 mg capsule,delayed 60 mg PO BID #60 caps 07/01/23 04/25/24 Rx release (Cymbalta) metoprolol succinate 25 mg 25 mg PO BID #180 tabs 08/19/23 04/25/24 Rx tablet,extended release 24 hr clopidogrel 75 mg tablet (Plavix) 75 mg PO QAM 10/26/23 04/25/24 History rimegepant 75 mg disintegrating 75 mg PO .COMPLEX PRN Migraine 10/26/23 04/25/24 History tablet (Nurtec ODT) Headache montelukast 10 mg tablet 10 mg PO QAM #90 tabs 11/10/23 04/25/24 Rx (Singulair) albuterol sulfate 90 mcg/actuation 2 puff inhalation Q6H PRN Wheezing 11/22/23 04/25/24 Rx aerosol inhaler #18 grams clobetasol 0.05 % lotion 1 applic topical BID PRN itching 2 11/22/23 04/25/24 Rx weeks #59 mL clobetasol 0.05 % topical cream 1 applic topical BID PRN rash #60 11/22/23 04/25/24 Rx grams fluticasone fur. 100 mcg-umeclid 1 inh inhalation QAM #60 ea 11/22/23 04/25/24 Rx 62.5 mcg-vilant 25 mcg inhalat.powder (Trelegy Ellipta) ezetimibe 10 mg tablet (Zetia) 10 mg PO HS #90 tabs 12/09/23 04/25/24 Rx pravastatin 40 mg tablet 40 mg PO HS #90 tabs 12/09/23 04/25/24 Rx hydroxyzine pamoate 25 mg capsule 25 mg PO TID PRN Anxiety #60 caps 01/02/24 04/25/24 Rx (Vistaril) levothyroxine 200 mcg tablet 200 mcg PO QAM #90 tabs 01/09/24 04/25/24 Rx trazodone 100 mg tablet 300 mg (3 x 100 mg) PO HS 90 days 01/12/24 04/25/24 Rx #270 tabs esomeprazole magnesium 40 mg 40 mg PO BID #180 caps 01/26/24 04/25/24 Rx capsule,delayed release (Nexium) folic acid 1 mg tablet 1 mg PO QAM #90 tabs 01/26/24 04/25/24 Rx levocetirizine 5 mg tablet (Xyzal) 5 mg PO HS #90 tabs 01/26/24 04/25/24 Rx silver sulfadiazine 1 % topical 1 applic topical DAILY PRN wound 01/26/24 04/25/24 Rx cream (Silvadene) healing #50 grams apixaban 5 mg tablet (Eliquis) 5 mg PO BID #90 tabs 02/01/24 04/25/24 Rx buspirone 10 mg tablet See Rx Instructions .Route 02/01/24 04/25/24 Rx .COMPLEX #405 tabs gabapentin 800 mg tablet 800 mg PO UD #105 tabs 02/01/24 04/25/24 Rx sucralfate 1 gram tablet (Carafate) 1 g PO BID PRN Acid Reflux #60 tabs 02/01/24 04/25/24 Rx epinephrine 0.3 mg/0.3 mL 0.3 mg (0.3 mL) IM Q10M PRN 02/10/24 04/25/24 Rx injection, auto-injector (EpiPen anaphylaxis #2 ea 2-Manny) nitroglycerin 0.4 mg sublingual 0.4 mg sublingual UD PRN Pain #25 02/10/24 04/25/24 Rx tablet (Nitrostat) tabs magnesium oxide 400 mg PO TID #270 tabs 02/15/24 04/25/24 Rx benzonatate 200 mg capsule 200 mg PO BID PRN cough #30 caps 03/19/24 04/25/24 Rx clotrimazole-betamethasone 1 1 applic topical BID #45 grams 03/26/24 04/25/24 Rx %-0.05 % topical cream valacyclovir 1 gram tablet 1,000 mg PO TID PRN NEEDED 03/26/24 04/25/24 History (Valtrex) methocarbamol 500 mg tablet 1,000 mg (2 x 500 mg) PO QID 30 03/27/24 04/25/24 Rx days #240 tabs nystatin 100,000 unit/gram topical 1 applic topical BID #30 grams 03/27/24 04/25/24 Rx powder semaglutide 1 mg/dose (4 mg/3 mL) 1 mg (0.75 mL) subcut WK #3 mL 04/09/24 04/25/24 Rx subcutaneous pen injector (Ozempic) oxycodone 10 mg tablet 10 mg PO Q8H PRN pain, severe #90 04/12/24 04/25/24 Rx tabs oxybutynin chloride 5 mg tablet 5 mg PO BID #30 tabs 04/16/24 04/25/24 Rx Past Med/Surg History Problem List Iron deficiency Anemia Insomnia Migraines History of left common carotid artery stent placement (01/20/23) Stenosis of left internal carotid artery History of TIA (transient ischemic attack) Bilateral carotid artery stenosis Morbid obesity BMI 43.2 Chronic hyponatremia Incontinence Severe sleep apnea 3L oxygen via N/C- (WAITING ON CPAP DEVICE) Follows with pulm Ulnar neuropathy at elbow of left upper extremity Cervical radiculopathy Esophageal dysphagia Ataxia Chronic antibiotic suppression Subjective memory complaints Diabetic peripheral neuropathy Neurogenic claudication due to lumbar spinal stenosis Anemia Chronic anticoagulation (Acute) " CLOTTING PROBLEM' x 5 YRS F/U DR PATTERSON Lumbar spondylosis Chronic low back pain Gastritis Hypomagnesemia (Acute) Chronic diarrhea Anxiety AF (paroxysmal atrial fibrillation) Takes Eliquis, follows with Dr. Plaza, no pacer NO HX CARDIOVERSION Thoracic spinal stenosis Dysfunction of right eustachian tube Dermatitis of both ear canals Obesity hypoventilation syndrome Degenerative joint disease of shoulder BILATERAL Hypothyroidism (acquired) S/p thyroidectomy 2015 (final pathology negative for malignancy) Psoriatic arthritis No meds at this time- follows with rheum Sensorineural hearing loss (SNHL) of both ears (Chronic) Hypertension GERD (gastroesophageal reflux disease) Degenerative cervical spinal stenosis (Chronic) COPD (chronic obstructive pulmonary disease) rare res inh use per pt > more fall season Chronic interstitial cystitis Allergic rhinitis Type 2 diabetes mellitus Pulsatile tinnitus (Chronic) Lumbar disc disease (Chronic) Failed back syndrome (Chronic) Diabetic neuropathy Depression Coronary artery disease Minor nonobstructive CAD per September 2012 cath per cardio records No hx stents or angioplasty Osteoarthritis (Chronic) Hyperlipidemia controlled per pt On home oxygen therapy (Chronic) 5L/MIN NC HS Medical History Thoracic spinal stenosis Type 2 diabetes mellitus Severe sleep apnea Neurogenic claudication Obesity hypoventilation syndrome On home oxygen therapy Lumbar disc disease Hypothyroidism (acquired) Hypomagnesemia History of left common carotid artery stent placement (01/20/23) Hx of gastritis Failed back syndrome CAD (coronary artery disease) Chronic low back pain Chronic interstitial cystitis Chronic hyponatremia Chronic anticoagulation Chronic antibiotic suppression Cervical radiculopathy Ataxia Anxiety Allergic rhinitis Paroxysmal atrial fibrillation IBS (irritable bowel syndrome) DJD of both shoulders Chronic diarrhea Iron deficiency Anemia (03/31/24) History of dysphagia History of esophageal dilatation (10/31/23) Incontinence Insomnia Hx of migraines Osteoarthritis Rheumatoid arthritis Psoriatic arthritis Depression Hyperlipidemia Hypertension GERD (gastroesophageal reflux disease) Diabetic neuropathy COPD (chronic obstructive pulmonary disease) Clotting disorder TIA (transient ischemic attack) (2013) History of seizures Meralgia paresthetica of right side Mixed hearing loss of right ear History of NV (myocardial infarction) (2009) Personal history of pulmonary embolism (2013) Personal history of skin cancer Carotid artery narrowing Hx of thyroid cancer (2015) Hx of deep venous thrombosis Surgical History History of esophagogastroduodenoscopy (EGD) History of right common carotid artery stent placement (12/01/22) History of tonsillectomy H/O colonoscopy with polypectomy History of cystoscopy History of incision and drainage (08/11/20) H/O cataract extraction S/P dilatation and curettage S/P section History of thyroidectomy, total (2015) History of knee replacement History of placement of ear tubes History of cervical spinal surgery History of breast biopsy History of appendectomy History of back surgery History of cardiac cath Family History Mother Diabetes Family history of diabetes mellitus Cardiac disorder Heart trouble Myocardial infarction Renal failure Family history of reaction to anesthesia Hypertension Stroke Gallbladder disease Grandfather Family hx of colon cancer Myocardial infarction Father Colon cancer Cardiac disorder Kidney stones Heart trouble Myocardial infarction Degenerative disc disease Lung disease Hypertension Stroke Aunt Colon cancer Diabetes Grandmother (Maternal) Degenerative disc disease Cancer Sister Diabetes Family history of diabetes mellitus Breast cancer Cancer Hypertension Gallbladder disease Family/Other Kidney disease Brother Multiple sclerosis Uncle Myocardial infarction Grandfather (Maternal) Family history of diabetes mellitus Aunt Diabetes Aunt Diabetes Aunt Diabetes Aunt Diabetes Aunt Diabetes Other Dementia Denies family history of Ovarian cancer Prostate cancer Adverse effect of anesthesia Bleeding disorder Social History Smoking Status: Current every day smoker Tobacco Type: E-cigarettes / Vaping Age Started Using Tobacco: 12; packs per day: 0.5; Cigarettes Per Day: Vapes daily (advised); Second Hand Exposure: No; Do You Dip or Chew Tobacco: No; Tobacco Cessation Education Requested by Patient: No Hx Alcohol Use: No Hx Substance Use: Yes Preferred Language: Georgian Communication Ability: Effective Visual Impairment: Limited Hearing Ability: Hard of Hearing 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 Beliefs That Will Affect Care: None marital status: Current Living Situation: Spouse and Family Current Living Situation Comment: AND SON current occupational status: unemployed How many Children do You have: 2 Other Information That Helps Us Care for You: No Feels Safe at Home: Yes Safety Concerns: Feels Safe At This Time Childhood Exposure to Second-Hand Smoke: Yes (father smoked) Diet: regular Diet Comment: regular caffeine: Yes during the past year weight has: increased > 10 lbs Dental Care, Regularly: Yes Physical Activity Frequency: Does not Exercise Physical Activity Frequency Comment: LIMITED BY PHYSICAL CONDITION Seatbelt Use: always Sunscreen Use: Yes Assistive Devices: Cane, Denture - Upper, Denture - Lower, Glasses, Nebulizer, Oxygen - at Night, Scooter/Electric Scooter and Walker Review of Systems All systems reviewed & are unremarkable except as noted in HPI & below
[2024-05-02] MEDS: SODIUM CHLORIDE 0.9% 1,000 ML IV SCH (10:05)
[2024-05-02] MEDS: VANCOMYCIN HCL 1,750 MG in SODIUM CHLORIDE 0.9% 500 ML IV SCH (10:05)
[2024-05-02 10:17] LABS: Basophils # (auto) 0.06 K/uL (0.00-0.20); Basophils % (auto) 0.8 %; Eosinophils # (auto) 0.27 K/uL (0.00-0.50); Eosinophils % (auto) 3.5 %; Hematocrit (blood only) 37.4 % (37.0-47.0); Immature Granulocytes # (auto) 0.02 K/uL (0.01-0.20); Immature Granulocytes % (auto) 0.3 %; Lymphocytes % (auto) 23.4 %; Mean Corpuscular Hgb Conc 29.4 g/dL (32.0-36.0); Mean Corpuscular Volume 91.7 fL (80.0-100.0); Mean Platelet Volume 9.8 fL (9.4-12.4); Monocytes # (auto) 0.71 K/uL (0.11-0.59); Monocytes % (auto) 9.2 %; Neutrophils # (auto) 4.82 K/uL (1.40-6.50); Neutrophils % (auto) 62.8 %; Platelet Count 312 K/uL (130-400); RDW Standard Deviation 70.4 fL (36.4-46.3); Red Blood Count 4.08 M/uL (4.20-5.40); White Blood Count 7.68 K/ul (4.8-10.8)
[2024-05-02 10:37] LABS: BUN Creatinine Ratio 21.7 (10-20); Calcium 8.8 mg/dl (8.6-10.3); Creatinine Clr Calc Pharmacy 78.2 ml/min; Est GFR (African American) 75.7 ml/min; Est GFR (Non-African American) 65.3 ml/min; Potassium 4.7 mmol/L (3.5-5.1)
[2024-05-02 10:43] LABS: Anisocytosis Present
[2024-05-02] MEDS ORDERED: PROPOFOL IV EMULSION 10 MG/ML 20 ML VIAL IV ONE (12:20)
[2024-05-02] MEDS ORDERED: MIDAZOLAM HCL 1 MG/ML 2ML VIAL ONE (12:20)
[2024-05-02] MEDS ORDERED: ONDANSETRON INJ 2 MG/ML 2 ML VIAL ONE (12:20)
[2024-05-02] MEDS ORDERED: LIDOCAINE 2% 2 ML VIAL/AMP(20MG/ML) INFIL ONE (12:20)
[2024-05-02] MEDS ORDERED: fentaNYL citrate PF 100 MCG/2 ML VIAL ONE ×2 (12:20→13:36)
[2024-05-02] MEDS ORDERED: DEXAMETHASONE SOD INJ 4 MG/ML VIAL ONE (12:20)
[2024-05-02] MEDS ORDERED: GLYCOPYRROLATE 0.2 MG/ML VIAL ONE ×2 (12:22→14:31)
[2024-05-02] MEDS ORDERED: ROCURONIUM BROMIDE 10 MG/ML 5 ML VIAL IV ONE (12:22)
[2024-05-02] MEDS ORDERED: HEPARIN SOD (PORCINE) 1000 UNIT/ML ONE (12:22)
[2024-05-02] MEDS ORDERED: LARYING-O-JET KIT (LTA) ONE (12:22)
--- NOTE | 2024-05-02 12:32 | History & Physical Bridge Note ---
Date of Service May 02, 2024 History & Physical Bridge Note I have examined the patient, reviewed the History & Physical and in the interval since the performance of the History & Physical I have noted the following changes of clinical significance: no changes noted
[2024-05-02] MEDS ORDERED: NALOXONE HCL 0.4 MG/1 ML VIAL/CARP IV PRN (12:41)
[2024-05-02] MEDS ORDERED: ATROPINE SULFATE 0.1 MG/ML 10ML SYR IV PRN (12:41)
[2024-05-02] MEDS ORDERED: LABETALOL HCL IV 5 MG/ML 20ML IV PRN (12:41)
[2024-05-02] MEDS ORDERED: FLUMAZENIL 0.1 MG/1 ML 10 ML VIAL IV PRN (12:41)
[2024-05-02] MEDS ORDERED: PROMETHAZINE HCL 6.25 MG in SODIUM CHLORIDE 0.9% 50 ML IV PRN (12:41)
[2024-05-02] MEDS ORDERED: fentaNYL citrate PF 100 MCG/2 ML VIAL IV PRN (12:41)
[2024-05-02] MEDS ORDERED: PHENYLEPHRINE 100MCG/ML 10ML SYR IV ONE (13:42)
[2024-05-02] MEDS ORDERED: NITROGLYCERIN/D5W 100 MCG/ML BTL ONE (13:42)
[2024-05-02] MEDS: ceFAZolin 330 MG/ML 1 GM VIAL ONE (13:48)
[2024-05-02] MEDS ORDERED: ATROPINE SULFATE 0.4 MG/ML 1 ML VIAL ONE (13:59)
[2024-05-02] MEDS ORDERED: DROPERIDOL 5 MG/2 ML VIAL ONE (14:05)
[2024-05-02] MEDS ORDERED: KETAMINE HCL 10MG/ML SYR ONE (14:06)
--- OUTSIDE RECORDS SUMMARY | 2024-05-02 14:12 | External Medical Summary | Continuity of Care Document ---
Author Name Unknown Organization [facility] [address] [facility] ([place], [place]) Address [address] [place], [place] [id number] Care Team Providers Care Wind Operations Manager Name Role Phone Gerda Johnson Primary Care Physician [phone] Encounter [facility] [id number] Date(s): 04/24/24 - 04/24/24 [facility] [address], [address] [place] [address] [phone] Encounter Diagnosis Carotid stenosis, bilateral(Discharge Diagnosis) - 04/24/24 Discharge Disposition: Home or Self Care Attending Physician: MD Aiken Eugene J Referring Physician: MD Johnson Cara M Allergies, Adverse Reactions, Alerts Substance Criticality Severity Reaction Reaction Severity Status clindamycin Diarrhea Active cephalexin Nausea Active penicillin Anaphylaxis Active ketorolac Headache Active naloxone Nausea Active Bactrim Nausea Active Allergy Not found in Search 1, 2 Vomiting Active OXcarbazepine Upset stomach Diarrhea Active levoFLOXacin Upset stomach Act sameer buprenorphine Vomiting Active Bee stings Anaphylaxis Active ondansetron Migraine Active fluticasone Thrush Active salmeterol Headache Active Adhesive bandage Blisters Act sameer pregabalin Shortness of breath Active fentaNYL Respiratory depression Somnolence Active 1artificial sweetners honey 2saccharin Assessment and Plan Extracted from: Title:Clinical Document Author:HAMILTON Patterson Lynn Date:04/24/24 [facility] OUTPATIENT NOTE Name: YUMI DOWLING Patient Number: [id number] : 1960 Date of Service: 04/24/2024 Chief Complaint: _Follow-up after CT scan HPI: _Ms. Tonia Carrington is an elderly female who presents to Dr. Aiken/[facility] today for a follow-up visit after undergoing a CTA of her neck to better evaluate her previously placed carotid stents. As you may remember, patient is status post right TCAR procedure in November 2022, and a left TCAR procedure in January 2023. Postoperative imaging had indicated possible restenosis in her stents, which were evaluated with a CTA last summer when found to be more related to severe tortuosity than true restenosis. Upon returning for a follow-up appointment here few weeks ago, she was found to have extremely elevated velocities in her carotid stents and sent for a CTA again to better evaluate. Patient denies any new symptoms of cerebrovascular insufficiency including amaurosis, extremity weakness numbness or tingling, difficulty speaking or swallowing, facial droop, sudden onset confusion, other complaints. She has remained on her aspirin, Plavix, and statin medications in addition to her chronic Eliquis. She is still under investigation for causes of severe GI bleeding resulting in hemoglobins as low as 6 and requiring significant transfusions in the past few months. CTA imaging performed at [facility] indicates no significant re stenosis in the right TCAR stent, but does demonstrate severe stenosis at the distal end of her left TCAR stent and just distal to the stent. Current Home Meds: (Last Updated 03/26 15:13) DULoxetine (DULoxetine 60 mg oral delayed release capsule) TAKE ONE CAPSULE BY MOUTH TWICE DAILY adalimumab (Humira Pen (citrate free) 40 mg/0.4 mL SQ kit) 40 mg subQ q7days albuterol (albuterol 0.083% for nebulization) 2.5 mg inhaled q6h PRN: as needed for wheezing albuterol (albuterol CFC free 90 mcg/inh MDI) 2 puff inhaled qid PRN: as needed for wheezing apixaban (apixaban 5 mg oral tablet) 5 mg PO bid aspirin (Aspirin Low Dose 81 mg oral delayed release tablet) 1 tab PO Daily benzonatate (benzonatate 200 mg oral capsule) 200 mg PO tid busPIRone (busPIRone 10 mg oral tablet) 10 mg PO tid cholecalciferol (cholecalciferol 25 mcg (1000 intl units) oral tablet) 25 mcg PO Daily clobetasol topical (clobetasol 0.05% topical lotion) 1 appl topical Daily clopidogrel (Plavix 75 mg oral tablet) 1 tab PO Daily cyanocobalamin (cyanocobalamin 500 mcg oral tablet) 500 mcg PO Daily doxycycline (doxycycline hyclate 100 mg oral tablet) TAKE ONE TABLET BY MOUTH EVERY DAY esomeprazole (esomeprazole 40 mg oral delayed release capsule) TAKE ONE CAPSULE BY MOUTH TWICE DAILY ezetimibe (ezetimibe 10 mg oral tablet) TAKE ONE TABLET BY MOUTH AT BEDTIME ferrous sulfate (ferrous sulfate 325 mg (65 mg elemental iron) oral delayed release tablet) 325 mg PO tid fluticasone/umeclidinium/vilanterol (fluticasone/umeclidinium/vilanterol 100 mcg-62.5 mcg-25 mcg/inh inhalation powder) 1 puff inhaled Daily folic acid (folic acid 1 mg oral tablet) 1 mg PO Daily guaiFENesin (guaiFENesin 1200 mg oral tablet, extended release) 1,200 mg PO q12h hydrOXYzine (hydrOXYzine pamoate 25 mg oral capsule) 25 mg PO tid PRN: as needed for anxiety levocetirizine (levocetirizine 5 mg oral tablet) TAKE ONE TABLET BY MOUTH AT BEDTIME levothyroxine (levothyroxine 200 mcg (0.2 mg) oral tablet) TAKE ONE TABLET BY MOUTH IN THE MORNING levothyroxine 75 mcg PO Daily loperamide 2 mg PO q6h PRN: as needed for loose stool magnesium oxide (magnesium oxide 400 mg (241.3 mg elemental magnesium) oral tablet) 400 mg PO tid methocarbamol (methocarbamol 500 mg oral tablet) 1,000 mg PO qid metoprolol (metoprolol succinate 25 mg oral tablet, extended release) 25 mg PO bid mometasone topical (mometasone 0.1% topical cream) 1 appl topical Daily montelukast (montelukast 10 mg oral tablet) 10 mg PO qPM mupirocin topical (mupirocin 2% topical ointment) 1 appl topical tid nitroglycerin (nitroglycerin 0.4 mg sublingual tablet) 0.4 mg SL q5min PRN: as needed for chest pain nystatin topical (nystatin 100,000 units/g topical powder) oxyCODONE (oxyCODONE 10 mg oral tablet) 10 mg PO q6h PRN: Pain oxybutynin (oxybutynin 5 mg oral tablet) TAKE ONE TABLET BY MOUTH EVERY12 HOURS NEEDED FOR BLADDER SPASMS pravastatin (pravastatin 20 mg oral tablet) TAKE two TABLETs BY MOUTH AT BEDTIME semaglutide (semaglutide 4 mg/3 mL subcutaneous solution) 1 mg subQ q7days sucralfate (sucralfate 1 g oral tablet) TAKE ONE TABLET BY MOUTH TWICE DAILY NEEDED FOR acid reflux traZODone (traZODone 100 mg oral tablet) TAKE four TABLETS BY MOUTH AT BEDTIME Allergies and Sensitivities: fluticasone(Thrush) Allergy Not found in Search(Vomiting) buprenorphine(Vomiting) Bee stings(Anaphylaxis) fentaNYL(Somnolence) fentaNYL(Respiratory depression) penicillin(Anaphylaxis) OXcarbazepine(Diarrhea) OXcarbazepine(Upset stomach) salmeterol(Headache) ketorolac(Headache) naloxone(Nausea) cephalexin(Nausea) clindamycin(Diarrhea) ondansetron(Migraine) levoFLOXacin(Upset stomach) Adhesive bandage(Blisters) pregabalin(Shortness of breath) Bactrim(Nausea) Past Medical History: Problems: Internal carotid artery stent present Tobacco user Carotid stenosis, bilateral OBJECTIVE Vitals: Last Updated 04/24/24 14:04 Date Temp BP Location Pulse RR SpO2 Pain 04/24/24 136/72 Right Arm 68 94 04/24/24 0 03/26/24 132/54 Right Arm Vital Signs are the last 3 documented. No Orthostatic Data Available Height and Weight: Last Updated 02/08/23 13:52 Date BMI Wt(kg) Wt(lb) Method Ht(cm) (ft-in) Method 02/08/23 119 262 Standing Scale 12/23/22 120 264 Standing Scale Heights and Weights are the last 3 documented. Physical Exam Constitutional: In general patient is obese but healthy-appearing well-nourished well-developed elderly female no distress. She is alert and oriented with no focal deficits. She does ambulate with a cane. Her carotids do demonstrate a faint bruit. Her heart is irregular. Her lungs are decreased but clear. ASSESSMENT: _ PLAN: _ 1 ) _left TCAR restenosis Patient is about 15 months status post left TCAR, and unfortunately appears to have a severe restenosis or residual stenosis at the distal end of her stent and just distal to the stent. Due to this finding, and her risk of CVA, we recommend that patient consider undergoing a redo left TCAR procedure in order for us to extend the current stent. The procedure benefits and alternatives were discussed at length with the patient. The risks of the procedure including bleeding, infection, stroke, myocardial infarction, local nerve damage, and were discussed at length with the patient by myself Dr. Aiken's request. Patient expresses understanding and agreement to proceed. This will occur in the next few weeks at the patient's convenience. 2 ) _bilateral carotid stenosis Patient is a little over 1 year status post bilateral TCAR's, now with a left TCAR restenosis. Her right TCAR remains patent. This will be reevaluated at a later date. Patient is advised to call any questions or concerns. She is agreeable this plan. Thank you for letting us participate in the care of this patient. I have personally spent_29__ minutes performing [id number] and qke-sqsk-[id number]-face activities on this date of service.Time does not include separately reported services. Activities Include: _x_ review of the medical record _x_ obtaining a history _x_ physical exam/evaluation __ review labs _x_ review radiology reports _x_ counseling/educating patient/family/caregiver __ discussion/referral to other healthcare professional _x_ documenting care in the medical record __ independent interpretation of results _x_ communication of results to patient/family/caregiver x__ coordination of care Medications albuterol 0.083% for nebulization Start: 10/27/22 11:49:00 AM EST, 3 mL, inhaled, q6h, PRN: as needed for wheezing Start Date: 10/27/22 Status: Ordered albuterol CFC free 90 mcg/inh MDI Start: 10/27/22 4:32:00 PM EST, 2 puff, inhaled, qid, PRN: as needed for wheezing Start Date: 10/27/22 Status: Ordered apixaban 5 mg oral tablet Start: 10/27/22 11:49:00 AM EST, 1 tab, PO, bid Start Date: 10/27/22 Status: Ordered Aspirin Low Dose 81 mg oral delayed release tablet Start: 12/12/23 11:06:00 AM EDT, 1 tab, PO, Daily, Disp# 30 tab, Refills: 11, Pharmacy: [facility] Start Date: 12/12/23 Status: Ordered benzonatate 200 mg oral capsule Start: 10/27/22 4:32:00 PM EST, 1 cap, PO, tid Start Date: 10/27/22 Status: Ordered busPIRone 10 mg oral tablet Start: 10/27/22 11:55:00 AM EST, 1 tab, PO, tid Start Date: 10/27/22 Status: Ordered cholecalciferol 25 mcg (1000 intl units) oral tablet Start: 10/27/22 4:33:00 PM EST, 1 tab, PO, Daily Start Date: 10/27/22 Status: Ordered clobetasol 0.05% topical lotion Start: 10/27/22 4:34:00 PM EST, 1 appl, topical, Daily Start Date: 10/27/22 Status: Ordered cyanocobalamin 500 mcg oral tablet Start: 10/27/22 11:49:00 AM EST, 1 tab, PO, Daily Start Date: 10/27/22 Status: Ordered doxycycline hyclate 100 mg oral tablet TAKE ONE TABLET BY MOUTH EVERY DAY Start Date: 10/27/22 Status: Ordered DULoxetine 60 mg oral delayed release capsule TAKE ONE CAPSULE BY MOUTH TWICE DAILY Start Date: 10/27/22 Status: Ordered esomeprazole 40 mg oral delayed release capsule TAKE ONE CAPSULE BY MOUTH TWICE DAILY Start Date: 10/27/22 Status: Ordered ezetimibe 10 mg oral tablet TAKE ONE TABLET BY MOUTH AT BEDTIME Start Date: 10/27/22 Status: Ordered ferrous sulfate 325 mg (65 mg elemental iron) oral delayed release tablet Start: 10/27/22 11:52:00 AM EST, 1 tab, PO, tid Start Date: 10/27/22 Status: Ordered fluticasone/umeclidinium/vilanterol 100 mcg-62.5 mcg-25 mcg/inh inhalation powder Start: 10/27/22 4:32:00 PM EST, 1 puff, inhaled, Daily Start Date: 10/27/22 Status: Ordered folic acid 1 mg oral tablet Start: 10/27/22 11:50:00 AM EST, 1 tab, PO, Daily Start Date: 10/27/22 Status: Ordered guaiFENesin 1200 mg oral tablet, extended release Start: 10/27/22 4:34:00 PM EST, 1 tab, PO, q12h Start Date: 10/27/22 Status: Ordered Humira Pen (citrate free) 40 mg/0.4 mL SQ kit Start: 10/18/23 2:30:00 PM EST, 40 mg =, subQ, q7days, Disp# 2 each Start Date: 10/18/23 Status: Ordered hydrOXYzine pamoate 25 mg oral capsule Start: 10/27/22 11:51:00 AM EST, 1 cap, PO, tid, PRN: as needed for anxiety Start Date: 10/27/22 Status: Ordered levocetirizine 5 mg oral tablet TAKE ONE TABLET BY MOUTH AT BEDTIME Start Date: 10/27/22 Status: Ordered levothyroxine Start: 10/27/22 12:00:00 PM EST, 75 mcg =, PO, Daily Start Date: 10/27/22 Status: Ordered levothyroxine 200 mcg (0.2 mg) oral tablet TAKE ONE TABLET BY MOUTH IN THE MORNING Start Date: 10/27/22 Status: Ordered loperamide Start: 10/27/22 11:48:00 AM EST, 2 mg =, PO, q6h, PRN: as needed for loose stool Start Date: 10/27/22 Status: Ordered magnesium oxide 400 mg (241.3 mg elemental magnesium) oral tablet Start: 10/27/22 11:52:00 AM EST, 1 tab, PO, tid Start Date: 10/27/22 Status: Ordered methocarbamol 500 mg oral tablet Start: 10/27/22 11:55:00 AM EST, 2 tab, PO, qid Start Date: 10/27/22 Status: Ordered metoprolol succinate 25 mg oral tablet, extended release Start: 10/27/22 11:54:00 AM EST, 1 tab, PO, bid Start Date: 10/27/22 Status: Ordered mometasone 0.1% topical cream Start: 10/27/22 4:33:00 PM EST, 1 appl, topical, Daily Start Date: 10/27/22 Status: Ordered montelukast 10 mg oral tablet Start: 10/27/22 11:53:00 AM EST, 1 tab, PO, qPM Start Date: 10/27/22 Status: Ordered mupirocin 2% topical ointment Start: 10/27/22 4:34:00 PM EST, 1 appl, topical, tid Start Date: 10/27/22 Status: Ordered nitroglycerin 0.4 mg sublingual tablet Start: 10/27/22 11:50:00 AM EST, 1 tab, SL, q5min, Disp# 25 tab, PRN: as needed for chest pain Start Date: 10/27/22 Status: Ordered nystatin 100,000 units/g topical powder Start: 10/27/22 11:50:00 AM EST Start Date: 10/27/22 Status: Ordered oxybutynin 5 mg oral tablet TAKE ONE TABLET BY MOUTH EVERY12 HOURS NEEDED FOR BLADDER SPASMS Start Date: 10/27/22 Status: Ordered oxyCODONE 10 mg oral tablet Start: 10/27/22 11:55:00 AM EST, 1 tab, PO, q6h, Refills: 0, PRN: Pain Start Date: 10/27/22 Status: Ordered Plavix 75 mg oral tablet Start: 12/12/23 2:18:00 PM EDT, 1 tab, PO, Daily, Disp# 90 tab, Refills: 3, Pharmacy: [facility] Start Date: 12/12/23 Status: Ordered pravastatin 20 mg oral tablet TAKE two TABLETs BY MOUTH AT BEDTIME Start Date: 10/27/22 Status: Ordered semaglutide 4 mg/3 mL subcutaneous solution Start: 10/27/22 1:04:00 PM EST, 1 mg =, subQ, q7days Start Date: 10/27/22 Status: Ordered sucralfate 1 g oral tablet TAKE ONE TABLET BY MOUTH TWICE DAILY NEEDED FOR acid reflux Start Date: 10/27/22 Status: Ordered traZODone 100 mg oral tablet TAKE four TABLETS BY MOUTH AT BEDTIME Start Date: 10/27/22 Status: Ordered Mental Status 04/24/24 Barriers to Learning one year None evide nt Mandatory Health Literacy Documentation Yes Health Literacy Communication Barriers N ever Primary Language Maori Problem List Condition Confirmation Course Effective Dates Status Health St atus Informant Carotid stenosis, bilateral Confirmed Active Internal carotid artery stent present Confirmed Active Tobacco user Confirmed Active Diagnosis Diagnosis Type Effective Dates Health Status Cl inical Service Informant Carotid stenosis, bilateral Discharge Diagnosis 04/24/24 Procedures Procedure Date Related Diagnosis Body Site Status Left TCAR 01/20/23 Completed right TCAR 12/01/22 Completed Vital Signs Most recent to oldest [Reference Range]: 1 Heart Rate 68 bpm (04/24/24 2:04 PM) Blood Pressure 136/72mmHg (04/24/24 2:04 PM) Cuff Pulse Pressure 64 mmHg (04/24/24 2:04 PM) BP Location # 1 Right Arm (04/24/24 2:04 PM) Social History Social History Type Response Smoking Status Former Smoker, quit within 31 days - 1 yr Sex Female Sex Representation Female (finding) [facility] Outpt Note * HAMILTON Patterson, Theresa: PERFORM Event Display: [facility] Outpt Note Authored Date: [id number] [facility] OUTPATIENT NOTE Name: YUMI DOWLING Patient Number: [id number] : 1960 Date of Service: 04/24/2024 Chief Complaint: _Follow-up after CT scan HPI: _Ms. Tonia Carrington is an elderly female who presents to Dr. Aiken/[facility] today for afollow-up visit after undergoing a CTA of her neck to better evaluate her previously placed carotidstents. As you may remember, patient is status post right TCAR procedure in November 2022, and a left TCAR procedure in January 2023. Postoperative imaging had indicated possible restenosis in her stents, wh ich were evaluated with a CTA last summer when found to be more related to severe tortuosity than true restenosis. Upon returning for a follow-up appointment here few weeks ago, she was found to haveextremely elevated velocities in her carotid stents and sent for a CTA again to better evaluate. Patient denies any new symptoms of cerebrovascular insufficiency including amaurosis, extremity weakness numbness or tingling, difficulty speaking or swallowing, facial droop, sudden onset confusion, other complaints. She has remained on her aspirin, Plavix, and statin medications in addition to her ch ronic Eliquis. She is still under investigation for causes of severe GI bleeding resulting in hemoglobins as low as 6 and requiring significant transfusions in the past few months. CTA imaging performed at [facility] indicates no significant re stenosis in the right TCAR stent, but does demonstrate severe stenosis at the distal end of her left TCAR stent and just distal to the stent. Current Home Meds: (Last Updated 03/26 15:13) DULoxetine (DULoxetine 60 mg oral delayed release capsule) TAKE ONE CAPSULE BY MOUTH TWICE DAILY adalimumab (Humira Pen (citrate free) 40 mg/0.4 mL SQ kit) 40 mg subQ q7days albuterol (albuterol 0.083% for nebulization) 2.5 mg inhaled q6h PRN: as needed for wheezing albuterol (albuterol CFC free 90 mcg/inh MDI) 2 puff inhaled qid PRN: as needed for wheezing apixaban (apixaban 5 mg oral tablet) 5 mg PO bid aspirin (Aspirin Low Dose 81 mg oral delayed release tablet) 1 tab PO Daily benzonatate (benzonatate 200 mg oral capsule) 200 mg PO tid busPIRone (busPIRone 10 mg oral tablet) 10 mg PO tid cholecalciferol (cholecalciferol 25 mcg (1000 intl units) oral tablet) 25 mcg PO Daily clobetasol topical (clobetasol 0.05% topical lotion) 1 appl topical Daily clopidogrel (Plavix 75 mg oral tablet) 1 tab PO Daily cyanocobalamin (cyanocobalamin 500 mcg oral tablet) 500 mcg PO Daily doxycycline (doxycycline hyclate 100 mg oral tablet) TAKE ONE TABLET BY MOUTH EVERY DAY esomeprazole (esomeprazole 40 mg oral delayed release capsule) TAKE ONE CAPSULE BY MOUTH TWICE DAILY ezetimibe (ezetimibe 10 mg oral tablet) TAKE ONE TABLET BY MOUTH AT BEDTIME ferrous sulfate (ferrous sulfate 325 mg (65 mg elemental iron) oral delayed release tablet) 325 mg PO tid fluticasone/umeclidinium/vilanterol (fluticasone/umeclidinium/vilanterol 100 mcg-62.5 mcg-25 mcg/inh inhalation powder) 1 puff inhaled Daily folic acid (folic acid 1 mg oral tablet) 1 mg PO Daily guaiFENesin (guaiFENesin 1200 mg oral tablet, extended release) 1,200 mg PO q12h hydrOXYzine (hydrOXYzine pamoate 25 mg oral capsule) 25 mg PO tid PRN: as needed for anxiety levocetirizine (levocetirizine 5 mg oral tablet) TAKE ONE TABLET BY MOUTH AT BEDTIME levothyroxine (levothyroxine 200 mcg (0.2 mg) oral tablet) TAKE ONE TABLET BY MOUTH IN THE MORNING levothyroxine 75 mcg PO Daily loperamide 2 mg PO q6h PRN: as needed for loose stool magnesium oxide (magnesium oxide 400 mg (241.3 mg elemental magnesium) oral tablet) 400 mg PO tid methocarbamol (methocarbamol 500 mg oral tablet) 1,000 mg PO qid metoprolol (metoprolol succinate 25 mg oral tablet, extended release) 25 mg PO bid mometasone topical (mometasone 0.1% topical cream) 1 appl topical Daily montelukast (montelukast 10 mg oral tablet) 10 mg PO qPM mupirocin topical (mupirocin 2% topical ointment) 1 appl topical tid nitroglycerin (nitroglycerin 0.4 mg sublingual tablet) 0.4 mg SL q5min PRN: as needed for chest pain nystatin topical (nystatin 100,000 units/g topical powder) oxyCODONE (oxyCODONE 10 mg oral tablet) 10 mg PO q6h PRN: Pain oxybutynin (oxybutynin 5 mg oral tablet) TAKE ONE TABLET BY MOUTH EVERY12 HOURS NEEDED FOR BLADDER SPASMS pravastatin (pravastatin 20 mg oral tablet) TAKE two TABLETs BY MOUTH AT BEDTIME semaglutide (semaglutide 4 mg/3 mL subcutaneous solution) 1 mg subQ q7days sucralfate (sucralfate 1 g oral tablet) TAKE ONE TABLET BY MOUTH TWICE DAILY NEEDED FOR acid reflux traZODone (traZODone 100 mg oral tablet) TAKE four TABLETS BY MOUTH AT BEDTIME Allergies and Sensitivities: fluticasone(Thrush) Allergy Not found in Search(Vomiting) buprenorphine(Vomiting) Bee stings(Anaphylaxis) fentaNYL(Somnolence) fentaNYL(Respiratory depression) penicillin(Anaphylaxis) OXcarbazepine(Diarrhea) OXcarbazepine(Upset stomach) salmeterol(Headache) ketorolac(Headache) naloxone(Nausea) cephalexin(Nausea) clindamycin(Diarrhea) ondansetron(Migraine) levoFLOXacin(Upset stomach) Adhesive bandage(Blisters) pregabalin(Shortness of breath) Bactrim(Nausea) Past Medical History: Problems: Internal carotid artery stent present Tobacco user Carotid stenosis, bilateral OBJECTIVE Vitals: Last Updated 04/24/24 14:04 Date Temp BP Location Pulse RR SpO2 Pain 04/24/24 136/72 Right Arm 68 94 04/24/24 0 03/26/24 132/54 Right Arm Vital Signs are the last 3 documented. No Orthostatic Data Available Height and Weight: Last Updated 02/08/23 13:52 Date BMI Wt(kg) Wt(lb) Method Ht(cm) (ft-in) Method 02/08/23 119 262 Standing Scale 12/23/22 120 264 Standing Scale Heights and Weights are the last 3 documented. Physical Exam Constitutional: In general patient is obese but healthy-appearing well-nourished well-developed elderly female no distress. She is alert and oriented with no focal deficits. She does ambulate with a cane. Her carotids do demonstrate a faint bruit. Her heart is irregular. Her lungs are decreased butclear. ASSESSMENT: _ PLAN: _ 1 ) _left TCAR restenosis Patient is about 15 months status post left TCAR, and unfortunately appears to have a severe restenosis or residual stenosis at the distal end of her stent and just distal to the stent. Due to this finding, and her risk of CVA, we recommend that patient consider undergoing a redo left TCAR procedure in order for us to extend the current stent. The procedure benefits and alternatives were discussed at length with the patient. The risks of the procedure including bleeding, infection, stroke, myocardial infarction, local nerve damage, and were discussed at length with the patient by myselfDrChavo Aiken's request. Patient expresses understanding and agreement to proceed. This will occur in the next few weeks at the patient's convenience. 2 ) _bilateral carotid stenosis Patient is a little over 1 year status post bilateral TCAR's, now with a left TCAR restenosis. Her right TCAR remains patent. This will be reevaluated at a later date. Patient is advised to call any questions or concerns. She is agreeable this plan. Thank you for letting us participate in the care of this patient. I have personally spent_29__ minutes performing [id number] and vqa-tdyj-[id number]-face activities on this date of service.Time does not include separately reported services. Activities Include: _x_ review of the medical record _x_ obtaining a history _x_ physical exam/evaluation __ review labs _x_ review radiology reports _x_ counseling/educating patient/family/caregiver __ discussion/referral to other healthcare professional _x_ documenting care in the medical record __ independent interpretation of results _x_ communication of results to patient/family/caregiver x__ coordination of care Electronic Signature on File CC: Gerda Johnson DO [address] [facility] [id number] * CC: Ajay Plaza MD [address] [place] [id number] * Electronically Reviewed/Signed by: Theresa Patterson PA-C Author Signature Dt/Tm:04/24/2024 04:45 PM [facility] [address] [address] Patient Care team information Care Team Personnel Name: HAMILTON Patterson, Theresa Position: Physician Business And Services Instructor Exempt - Vasc Surg Member Role: Lifetime Relationship [address]: [address] [place] [id number] [place] Name: MD Alex, Gerda Kendall Position: Referring DIRECT Member Role: Primary Care Provider Address: [address] [place] [id number]
[2024-05-02] MEDS ORDERED: EPINEPHrine INJ 1 MG/ML AMP ONE (14:17)
[2024-05-02] MEDS ORDERED: PROTAMINE SULFATE 10 MG/ML 5 ML VIAL IV ONE (14:20)
[2024-05-02] MEDS: BUPIVACAINE/EPINEPHRINE 0.5% MPF 1:200,000 30 ML VIAL ONE (14:23)
[2024-05-02] MEDS: VISIPAQUE IV ONE (14:26)
[2024-05-02] MEDS ORDERED: NEOSTIGMINE METHYLSULFATE 1 MG/ML 10ML VIAL ONE (14:31)
[2024-05-02] MEDS ORDERED: ACETAMINOPHEN 1000 MG/100 ML IV IV ONE (14:35)
--- NOTE | 2024-05-02 14:45 | Procedure Note ---
Angiogram Post Procedure Fluoroscopy Time (minutes): 4.7 Radiation (mGy): 50 Contrast: 6 Post Operative Report Pre & Post Diagnosis Operation Date: 05/02/24 13:00 Pre-Op Diagnosis: Left Carotid Artery Stenosis Post-Op Diagnosis: Left Carotid Artery Stenosis I identified the patient and participated in the time-out.: Yes Procedure Operation Date: 05/02/24 13:00 Actual Procedures p Redo Left Transcarotid Artery Revascularization, with Right Femoral Vein Ultrasound Access(Left) - Celso Aiken MD Surgeon Celso Aiken MD Briquette Operator Deven,PAC Estimated Blood Loss 15 Findings Consistent with Post-Op Diagnosis Specimens none Anesthesia Type General Complications none Disposition Accompanied Patient To Recovery: No Disposition: Recovery Room Indications This is a 63-year-old female who had a left TCAR done previously. She was found to have high velocities on her follow-up study. These worsened. She underwent CT angiography which revealed a significant narrowing of the distal end of the stent. Relining of the stent was recommended. I have discussed the risks options and benefits of the procedure with the patient. The patient understands the risks options and benefits and agrees to the procedure. Description of Procedure The patient was taken to the operating room and placed in supine position. After general anesthesia was accomplished the groins and left side of the neck and chest were prepped and draped in a sterile manner. Timeout was performed and the patient was identified. A transverse incision was made just above the clavicle between the heads of the sternocleidomastoid. This is carried down to where the common carotid artery was identified. It was isolated. It was slung with umbilical tape. Next the U stitch was placed in the common carotid artery with a 5-0 Prolene suture. Patient was given 9000 heparin at that time. Ultrasound was then used to localize the right common femoral vein. The vein was patent and compressed easily. Under ultrasound guidance the right common femoral vein was punctured and the venous sheath was inserted. This was aspirated and flushed with heparinized saline. ACT at that time was 317. Using micropuncture technique the common carotid artery was punctured. The micro sheath was inserted to 3 cm. Injection was then done showing the bifurcation. There was a significant narrowing seen towards the distal end of the stent. We then inserted the J-wire and left it short of the previous stent. The micro sheath was removed and the TCAR sheath was inserted. Once it was in place and held against the artery it was sutured to the chest wall and the incision edge. We then flushed the tubing appropriately. The venous return to was clamped onto the TCAR sheath. It was flushed through and then attached to the venous inflow sheath in the left groin. Sheath was checked for flow. The saline cleared nicely. The common carotid artery was then clamped. Flow reversal was instituted. We inserted a 5.5 x 35 balloon backloaded on the wire. The wire was passed through the lesion into the petrous portion of the internal carotid. The 5.5 balloon was then advanced to the lesion. Lesion was then predilated with a 5.5 mm balloon. Balloon was removed. We then inserted the 9/7 x 40 stent. This was deployed across the lesion without difficulty. The catheter was removed. We then postdilated to iron out the realigned stent with the 5.5 balloon. The carotid was allowed to go 2 minutes with flow reversal. Completion angiogram was done at that time which showed a widely patent carotid stent. At that point the common carotid artery was unclamped. The venous return tubing was clamped and removed from the TCAR sheath. The blood was allowed to flow back into the venous system. Once this was completed the sheath was pulled from the groin and pressure was applied after the protamine was given and an ACT done. The TCAR sheath was then removed and the 5-0 Prolene suture securely tied. Hemostasis was noted of the puncture site. Wound was irrigated with saline solution. Adequate hemostasis was obtained of the wound. Once this was noted the wound was closed in usual fashion using a 3-0 Vicryl suture for the subcutaneous layer and a 4-0 subcuticular Vicryl suture for the skin edges. Dermabond was used for dressing.The patient left the operation room in satisfactory condition and tolerated the procedure well. All needle and sponge counts were correct at the end of the procedure. Theresa Patterson Pac assisted due to lack of resident availability and was necessary for positioning, draping, retraction, wound closure deep layers, subcu taneous tissue, and skin closure and was necessary for assisting with the case. I attest to the content of the Intraoperative Record and any orders documented therein. Any exceptions are noted below.
[2024-05-02] MEDS: ePHEDrine sulfate 50 MG/ML AMP IV PRN (15:25)
--- NOTE | 2024-05-02 16:17 | Anesthesiology Progress Note ---
Date of Service May 02, 2024 Anesthesia Post Procedure Vital Signs Vital Signs: Temp Pulse Pulse Resp BP BP Pulse Ox 05/02/24 15:55 97.7 F 70 18 132/43 L 94 05/02/24 15:45 71 16 113/40 L 93 05/02/24 15:35 66 20 118/50 L 100 05/02/24 15:25 65 14 127/52 L 100 05/02/24 15:15 66 11 L 127/44 L 100 05/02/24 15:05 66 20 109/43 L 100 05/02/24 14:57 96.8 F L 67 18 113/58 L 100 05/02/24 10:05 05/02/24 10:05 98.2 F 65 20 139/110 H O2 Del Method O2 Flow Rate 05/02/24 15:55 Room Air 05/02/24 15:45 Room Air 05/02/24 15:35 Oxymask 5 05/02/24 15:25 Oxymask 5 05/02/24 15:15 Oxymask 10 05/02/24 15:05 Oxymask 10 05/02/24 14:57 Oxymask 10 05/02/24 10:05 Room Air 05/02/24 10:05 Room Air Pain Intensity Bilateral Lower Back: Pain Intensity: 1 Transfer of Care Handoff Completed per policy Notes Mental Status: alert / awake / arousable and participated in evaluation Patient Amnestic to Procedure: Yes Nausea / Vomiting: adequately controlled Pain: adequately controlled Airway Patency, RR, SpO2: stable & adequate BP & HR: stable & adequate Hydration State: stable & adequate Anesthetic Complications: no major complications apparent and Pt Satisfied with anesthetic care Notes: received care of patient from Dr. Briceño in pacu SBAR given, patient received 250 ml albumin for slight hypotension in recovery with adequate response
[2024-05-02] MEDS ORDERED: VANCOMYCIN CONSULT ACTIVE PRN ×2 (16:36→21:11)
[2024-05-02] MEDS ORDERED: SILVER SULFADIAZINE 1% CR 50 GM JAR TOP PRN (16:36)
[2024-05-02] MEDS ORDERED: NITROGLYCERIN SL 0.4 MG/TAB TAB SL PRN (16:36)
[2024-05-02] MEDS ORDERED: ALBUTEROL 0.5% NEB SOLN 2.5 MG/0.5 ML VIAL INH PRN (16:36)
[2024-05-02] MEDS ORDERED: STAT IV Infusion **Titration per Protocol STA (16:36)
[2024-05-02] MEDS ORDERED: PHENYLEPHRINE/NSS 25 MG/250 ML BAG IV PRN (16:36)
[2024-05-02] MEDS ORDERED: CLOBETASOL PROPIONATE 0.05% CREAM 15 GM TUBE TOP PRN (16:36)
[2024-05-02] MEDS ORDERED: hydrOXYzine HCl 25 MG TAB PO PRN (16:36)
[2024-05-02] MEDS ORDERED: SUCRALFATE 1 GM TAB PO PRN (16:36)
[2024-05-02] MEDS ORDERED: EPINEPHrine INJ 1 MG/ML AMP IM PRN (17:08)
[2024-05-02] MEDS ORDERED: TRIAMCINOLONE ACET 0.5% CR 15 GM TUBE EXT PRN (17:29)
[2024-05-02] MEDS ORDERED: CLOBETASOL PROPIONATE 0.05% CREAM 15 GM TUBE EXT PRN (17:32)
[2024-05-02] MEDS: ALBUMIN 5% 250 ML IV ONE (17:35)
[2024-05-02] MEDS ORDERED: TRIAMCINOLONE ACET 0.1% CR 15 GM TUBE EXT PRN (17:37)
[2024-05-02] MEDS: LACTATED RINGER'S 1,000 ML IV SCH (17:39)
[2024-05-02] MEDS: oxyCODONE/ACETAMINOPHEN 5mg/325mg TAB PO PRN (17:42)
[2024-05-02] MEDS: BENZONATATE 100 MG CAPSULE PO PRN (17:49)
[2024-05-02] MEDS: METHOCARBAMOL 500 MG TABLET PO SCH (18:33)
[2024-05-02] MEDS: GABAPENTIN 800 MG TAB PO SCH ×2 (18:33→20:20)
[2024-05-02] MEDS: busPIRone 5 MG TAB PO SCH (18:35)
[2024-05-02] MEDS: DOXYCYCLINE HYCLATE 100 MG CAP PO SCH (20:18)
[2024-05-02] MEDS: busPIRone 7.5 MG TAB PO SCH (20:18)
[2024-05-02] MEDS: CETIRIZINE HCL 10 MG TABLET PO SCH (20:18)
[2024-05-02] MEDS: ALBUTEROL HFA 8 GM INHALER INH PRN (20:19)
[2024-05-02] MEDS: EZETIMIBE 10 MG TAB PO SCH (20:19)
[2024-05-02] MEDS: PRAVASTATIN SOD 40 MG TAB PO SCH (20:19)
[2024-05-02] MEDS: PANTOprazole 40 MG TAB PO SCH (20:19)
[2024-05-02] MEDS: oxyBUTYnin chloride 5 MG TAB PO SCH (20:21)
[2024-05-02] MEDS: MAGNESIUM OXIDE 400 MG TAB PO SCH (20:21)
[2024-05-02] MEDS: traZODone HCL 100 MG TAB PO SCH (20:22)
[2024-05-02] MEDS: DULoxetine HCL 60 MG CAP PO SCH (20:22)
[2024-05-02] MEDS: METOPROLOL SUCC 25MG EXT REL TAB PO SCH (20:22)
[2024-05-02] MEDS: NYSTATIN POWDER 15GM BTL EXT SCH (20:23)
[2024-05-02] MEDS: LR 15ML/HR IV SCH (20:57)
[2024-05-02] MEDS ORDERED: CLOTRIMAZOLE/BETAMETHASONE CR 15 GM TUBE EXT SCH (21:00)
--- NOTE | 2024-05-02 21:23 | Critical Care Consultation ---
Date of Consultation May 02, 2024 Assessment & Plan (1) Bilateral carotid artery stenosis: Impression: 63-year-old female presents to the ICU postoperatively following TCAR per vascular surgery, admitted to ICU for postop monitoring overnight. Neuro - Anxiety/depressioncontinue Cymbalta, BuSpar, Trazodone Neuropathy/Chronic back paincontinue gabapentin, Robaxin. oxycodone prn Cardiac - PAFdefer to surgery with restarting anticoagulant. Continue MTP. She is currently sinus rhythm on monitor. Continuous monitoring on telemetry CADcontinue statin, ASA Carotid artery stenosisstatus post TCAR. Monitoring ICU overnight. Management per vascular surgery HLDcontinue Zetia Respiratory - COPDcurrently on baseline 3 L nasal cannula without respiratory distress. - Continue Singulair, and Home dose nebs - Continuous pulse ox monitoring GI - GERDcontinue PPI RENAL/LYTES - Creatinine within normal limits. No electrolyte abnormalities - Strict I's and O's ENDO - Hypothyroidismcontinue Synthroid HEME - H&H stable, no evidence of bleeding postop. Monitor ID - Patient chronically on doxycycline, continue home dose 100 mg every afternoon. Empiric vancomycin postop LINES/IV ACCESS - Peripheral IVs, A-line DVT PROPHYLAXIS - SCDs, anticoagulation on hold postop Thank you for allowing us to participate in the care of this patient. Please refer to my attending physician's documentation for any further recommendations. (2) Cervical radiculopathy: (3) Chronic anticoagulation: (4) Lumbar spondylosis: (5) Chronic low back pain: (6) AF (paroxysmal atrial fibrillation): (7) Anxiety: (8) Hypothyroidism (acquired): (9) GERD (gastroesophageal reflux disease): (10) COPD (chronic obstructive pulmonary disease): (11) Hypertension: (12) Type 2 diabetes mellitus: (13) Hyperlipidemia: (14) Coronary artery disease: History of Present Illness Attending Physician: Celso Aiken MD History of Present Illness Patient is a 63-year-old female with past medical history significant for bilateral carotid artery stenosis (previous bilateral TCAR), migraines, anemia, insomnia, obesity, COPD (on 3 L nasal cannula baseline), paroxysmal A-fib, GERD, neuropathy, anxiety disorder, depression, hypothyroidism, degenerative cervical stenosis With multiple spinal surgeries and infection of hardware for which she is on chronic antimicrobial, HTN, CAD, HLD who presents to the ICU post op for a scheduled TCAR of the left carotid artery. Recently patient was found to have restenosis of her stents via CTA, but was noted to be asymptomatic. She was admitted for planned revascularization earlier today. On arrival to the ICU the patient is alert and oriented and hemodynamically stable. She denies headache, dizziness, numbness or tingling, difficulty with speech, shortness of breath, chest pain or palpitations, abdominal pain, nausea vomiting or diarrhea, swelling hands or feet. She denies recent illness or fevers and states that she was at her baseline health prior to this procedure. Of note, patient is systemically anticoagulated on apixaban for her paroxysmal A-fib, but this has been on hold since Tuesday. She has no symptoms of bleeding and surgical incisions are well-approximated. Patient to remain in ICU overnight for close monitoring following procedure. Allergies Allergy/AdvReac Type Severity Reaction Status Date / Time bee pollen Allergy Severe Anaphylaxis Verified 05/02/24 10:34 fentanyl Allergy Severe Severe Verified 05/02/24 10:34 sedation, resp depression (only with patches) Penicillins Allergy Severe Anaphylaxis Verified 05/02/24 10:34 pregabalin Allergy Severe Shortness Verified 05/02/24 10:34 of breath honey Allergy Intermediate Hives Verified 05/02/24 10:34 adhesive Allergy Mild Blister Verified 05/02/24 10:34 (wipe some plastic tape) oxcarbazepine AdvReac Severe Severe Verified 05/02/24 10:34 [From Trileptal] stomach issues sulfamethoxazole AdvReac Severe Severe Verified 05/02/24 10:34 nausea trimethoprim AdvReac Severe Severe Verified 05/02/24 10:34 nausea buprenorphine [From Suboxone] AdvReac Intermediate Vomiting, Verified 05/02/24 10:34 skin problems clindamycin AdvReac Intermediate Diarrhea Verified 05/02/24 10:34 fluticasone AdvReac Intermediate Severe Verified 05/02/24 10:34 thrush ketorolac AdvReac Intermediate Migraine Verified 05/02/24 10:34 levofloxacin [From Levaquin] AdvReac Intermediate IBS ("can Verified 05/02/24 10:34 only tolerate for 5 days") naloxone [From Suboxone] AdvReac Intermediate Severe Verified 05/02/24 10:34 nausea, SKIN PROBLEMS ondansetron [From Zofran] AdvReac Intermediate Migraine Verified 05/02/24 10:34 saccharin [From Sweeta] AdvReac Intermediate Severe Verified 05/02/24 10:34 vomiting salmeterol AdvReac Intermediate Severe Verified 05/02/24 10:34 thrush cephalexin AdvReac Mild Nausea Verified 05/02/24 10:34 Home Medications Medication Instructions Recorded Confirmed Type Hospital Bed Homecare (Hospital #1 ea 11/14/19 04/23/24 Rx Bed) [facility] Rx Verio Meter) doxycycline hyclate 100 mg capsule 100 mg PO QPM 06/17/21 05/02/24 History lancets 30 gauge ([facility] #200 ea 06/19/21 04/23/24 Rx Lancets) albuterol sulfate 2.5 mg/0.5 mL 2.5 mg (0.5 mL) inhalation QID PRN 07/13/21 05/02/24 Rx solution for nebulization Wheezing #30 ea guaifenesin 1,200 mg tablet, 1,200 mg PO Q12H PRN Nasal 11/11/21 05/02/24 History extended release 12 hr (Mucinex) Congestion CPAP Machine #1 ea 08/02/22 04/23/24 Rx mometasone 0.1 % topical cream 1 applic topical DAILY PRN 10/22/22 05/02/24 Rx allergic reaction #15 grams aspirin 81 mg capsule 81 mg PO QAM 12/01/22 05/02/24 History cholecalciferol (vitamin D3) 250 500 mcg PO DAILY 01/24/23 05/02/24 History mcg (10,000 unit) tablet cyanocobalamin (vitamin B-12) 500 1,000 mcg (2 x 500 mcg) PO DAILY 03/15/23 05/02/24 Rx mcg tablet #60 tabs blood sugar diagnostic #100 ea 05/12/23 04/23/24 Rx Oxygen Home 05/17/23 04/23/24 History adalimumab 40 mg/0.8 mL 40 mg subcut WK 05/17/23 05/02/24 History subcutaneous syringe kit betamethasone dipropionate 0.05 % 1 applic topical BID PRN skin 05/25/23 05/02/24 Rx topical cream irritation #45 grams duloxetine 60 mg capsule,delayed 60 mg PO BID #60 caps 07/01/23 05/02/24 Rx release (Cymbalta) metoprolol succinate 25 mg 25 mg PO BID #180 tabs 08/19/23 05/02/24 Rx tablet,extended release 24 hr clopidogrel 75 mg tablet (Plavix) 75 mg PO QAM 10/26/23 05/02/24 History rimegepant 75 mg disintegrating 75 mg PO .COMPLEX PRN Migraine 10/26/23 05/02/24 History tablet (Nurtec ODT) Headache montelukast 10 mg tablet 10 mg PO QAM #90 tabs 11/10/23 05/02/24 Rx (Singulair) albuterol sulfate 90 mcg/actuation 2 puff inhalation Q6H PRN Wheezing 11/22/23 05/02/24 Rx aerosol inhaler #18 grams clobetasol 0.05 % lotion 1 applic topical BID PRN itching 2 11/22/23 05/02/24 Rx weeks #59 mL clobetasol 0.05 % topical cream 1 applic topical BID PRN rash #60 11/22/23 05/02/24 Rx grams fluticasone fur. 100 mcg-umeclid 1 inh inhalation QAM #60 ea 11/22/23 05/02/24 Rx 62.5 mcg-vilant 25 mcg inhalat.powder (Trelegy Ellipta) ezetimibe 10 mg tablet (Zetia) 10 mg PO HS #90 tabs 12/09/23 05/02/24 Rx pravastatin 40 mg tablet 40 mg PO HS #90 tabs 12/09/23 05/02/24 Rx hydroxyzine pamoate 25 mg capsule 25 mg PO TID PRN Anxiety #60 caps 01/02/24 05/02/24 Rx (Vistaril) levothyroxine 200 mcg tablet 200 mcg PO QAM #90 tabs 01/09/24 05/02/24 Rx trazodone 100 mg tablet 300 mg (3 x 100 mg) PO HS 90 days 01/12/24 05/02/24 Rx #270 tabs esomeprazole magnesium 40 mg 40 mg PO BID #180 caps 01/26/24 05/02/24 Rx capsule,delayed release (Nexium) folic acid 1 mg tablet 1 mg PO QAM #90 tabs 05/09/24 08/14/24 Rx levocetirizine 5 mg tablet (Xyzal) 5 mg PO HS #90 tabs 01/26/24 05/02/24 Rx silver sulfadiazine 1 % topical 1 applic topical DAILY PRN wound 01/26/24 05/02/24 Rx cream (Silvadene) healing #50 grams apixaban 5 mg tablet (Eliquis) 5 mg PO BID #90 tabs 02/01/24 05/02/24 Rx buspirone 10 mg tablet See Rx Instructions .Route 02/01/24 05/02/24 Rx .COMPLEX #405 tabs gabapentin 800 mg tablet 800 mg PO UD #105 tabs 02/01/24 05/02/24 Rx sucralfate 1 gram tablet (Carafate) 1 g PO BID PRN Acid Reflux #60 tabs 02/01/24 05/02/24 Rx epinephrine 0.3 mg/0.3 mL 0.3 mg (0.3 mL) IM Q10M PRN 02/10/24 05/02/24 Rx injection, auto-injector (EpiPen anaphylaxis #2 ea 2-Manny) nitroglycerin 0.4 mg sublingual 0.4 mg sublingual UD PRN Pain #25 02/10/24 05/02/24 Rx tablet (Nitrostat) tabs magnesium oxide 400 mg PO TID #270 tabs 02/15/24 05/02/24 Rx benzonatate 200 mg capsule 200 mg PO BID PRN cough #30 caps 03/19/24 05/02/24 Rx clotrimazole-betamethasone 1 1 applic topical BID #45 grams 03/26/24 05/02/24 Rx %-0.05 % topical cream methocarbamol 500 mg tablet 1,000 mg (2 x 500 mg) PO QID 30 03/27/24 05/02/24 Rx days #240 tabs nystatin 100,000 unit/gram topical 1 applic topical BID #30 grams 03/27/24 05/02/24 Rx powder semaglutide 1 mg/dose (4 mg/3 mL) 1 mg (0.75 mL) subcut WK #3 mL 04/09/24 05/02/24 Rx subcutaneous pen injector (Ozempic) oxycodone 10 mg tablet 10 mg PO Q8H PRN pain, severe #90 04/12/24 05/02/24 Rx tabs oxybutynin chloride 5 mg tablet 5 mg PO BID #30 tabs 04/16/24 05/02/24 Rx Patient History Medical History Thoracic spinal stenosis Type 2 diabetes mellitus Severe sleep apnea Neurogenic claudication Obesity hypoventilation syndrome On home oxygen therapy Lumbar disc disease Hypothyroidism (acquired) Hypomagnesemia History of left common carotid artery stent placement (01/20/23) Hx of gastritis Failed back syndrome CAD (coronary artery disease) Chronic low back pain Chronic interstitial cystitis Chronic hyponatremia Chronic anticoagulation Chronic antibiotic suppression Cervical radiculopathy Ataxia Anxiety Allergic rhinitis Paroxysmal atrial fibrillation IBS (irritable bowel syndrome) DJD of both shoulders Chronic diarrhea Iron deficiency Anemia (03/31/24) History of dysphagia History of esophageal dilatation (10/31/23) Incontinence Insomnia Hx of migraines Osteoarthritis Rheumatoid arthritis Psoriatic arthritis Depression Hyperlipidemia Hypertension GERD (gastroesophageal reflux disease) Diabetic neuropathy COPD (chronic obstructive pulmonary disease) Clotting disorder TIA (transient ischemic attack) (2013) History of seizures Meralgia paresthetica of right side Mixed hearing loss of right ear History of MA (myocardial infarction) (2009) Personal history of pulmonary embolism (2013) Personal history of skin cancer Carotid artery narrowing Hx of thyroid cancer (2015) Hx of deep venous thrombosis Surgical History History of esophagogastroduodenoscopy (EGD) History of right common carotid artery stent placement (12/01/22) History of tonsillectomy H/O colonoscopy with polypectomy History of cystoscopy History of incision and drainage (08/11/20) H/O cataract extraction S/P dilatation and curettage S/P section History of thyroidectomy, total (2015) History of knee replacement History of placement of ear tubes History of cervical spinal surgery History of breast biopsy History of appendectomy History of back surgery History of cardiac cath Family History Mother Diabetes Family history of diabetes mellitus Cardiac disorder Heart trouble Myocardial infarction Renal failure Family history of reaction to anesthesia Hypertension Stroke Gallbladder disease Grandfather Family hx of colon cancer Myocardial infarction Father Colon cancer Cardiac disorder Kidney stones Heart trouble Myocardial infarction Degenerative disc disease Lung disease Hypertension Stroke Aunt Colon cancer Diabetes Grandmother (Maternal) Degenerative disc disease Cancer Sister Diabetes Family history of diabetes mellitus Breast cancer Cancer Hypertension Gallbladder disease Family/Other Kidney disease Brother Multiple sclerosis Uncle Myocardial infarction Grandfather (Maternal) Family history of diabetes mellitus Aunt Diabetes Aunt Diabetes Aunt Diabetes Aunt Diabetes Aunt Diabetes Other Dementia Denies family history of Ovarian cancer Prostate cancer Adverse effect of anesthesia Bleeding disorder Social History Smoking Status: Current every day smoker Tobacco Type: E-cigarettes / Vaping Age Started Using Tobacco: 12; packs per day: 0.5; Cigarettes Per Day: Vapes daily (advised); Second Hand Exposure: No; Do You Dip or Chew Tobacco: No; Tobacco Cessation Education Requested by Patient: No Hx Alcohol Use: No Hx Substance Use: Yes Preferred Language: Estonian Communication Ability: Effective Visual Impairment: Limited Hearing Ability: Hard of Hearing Claim Professional Required: No Beliefs That Will Affect Care: None marital status: Current Living Situation: Spouse and Family Current Living Situation Comment: AND SON current occupational status: unemployed How many Children do You have: 2 Other Information That Helps Us Care for You: No Feels Safe at Home: Yes Safety Concerns: Feels Safe At This Time Childhood Exposure to Second-Hand Smoke: Yes (father smoked) Diet: regular Diet Comment: regular caffeine: Yes during the past year weight has: increased > 10 lbs Dental Care, Regularly: Yes Physical Activity Frequency: Does not Exercise Physical Activity Frequency Comment: LIMITED BY PHYSICAL CONDITION Seatbelt Use: always Sunscreen Use: Yes Assistive Devices: Cane, Denture - Upper, Denture - Lower, Glasses, Nebulizer, Oxygen - at Night, Scooter/Electric Scooter and Walker Review of Systems Review of Systems: All systems reviewed & are unremarkable except as noted in HPI & below Results & Data Results & Data Vital Signs (Past 12 Hours) Vital Signs Temp Pulse Pulse Pulse Resp BP BP 05/02/24 20:13 36.5 C 67 16 120/47 L 05/02/24 19:12 66 15 05/02/24 19:03 67 12 05/02/24 18:51 71 20 05/02/24 18:42 82 28 H 05/02/24 18:36 36.6 C 05/02/24 18:30 65 15 05/02/24 18:21 67 17 05/02/24 18:18 66 16 05/02/24 18:00 65 14 05/02/24 17:51 66 19 05/02/24 17:33 74 23 05/02/24 17:27 70 11 L 05/02/24 17:12 71 18 05/02/24 16:36 36.6 C 70 18 05/02/24 16:30 05/02/24 15:55 36.5 C 70 18 05/02/24 15:45 71 16 05/02/24 15:35 66 20 05/02/24 15:25 65 14 05/02/24 15:15 66 11 L 05/02/24 15:05 66 20 05/02/24 14:57 36.0 C L 67 18 05/02/24 10:05 05/02/24 10:05 36.8 C 65 20 139/110 H BP Pulse Ox O2 Del Method O2 Flow Rate 05/02/24 20:13 97 Nasal Cannula 5 05/02/24 19:12 05/02/24 19:03 05/02/24 18:51 05/02/24 18:42 05/02/24 18:36 05/02/24 18:30 98 05/02/24 18:21 98 05/02/24 18:18 99 05/02/24 18:00 99 05/02/24 17:51 100 05/02/24 17:33 100 05/02/24 17:27 100 05/02/24 17:12 100 05/02/24 16:36 95 Nasal Cannula 5 05/02/24 16:30 Nasal Cannula 5 05/02/24 15:55 132/43 L 94 Room Air 05/02/24 15:45 113/40 L 93 Room Air 05/02/24 15:35 118/50 L 100 Oxymask 5 05/02/24 15:25 127/52 L 100 Oxymask 5 05/02/24 15:15 127/44 L 100 Oxymask 10 05/02/24 15:05 109/43 L 100 Oxymask 10 05/02/24 14:57 113/58 L 100 Oxymask 10 05/02/24 10:05 Room Air 05/02/24 10:05 Room Air Coding Level of Care Code 60274 IN/OBS CONSULT LVL 3,45M Diagnoses Bilateral carotid artery stenosis I65.23 Cervical radiculopathy M54.12 Chronic anticoagulation Z79.01 Lumbar spondylosis M47.816 Chronic low back pain M54.5; G89.29 AF (paroxysmal atrial fibrillation) I48.0 Anxiety F41.9 Hypothyroidism (acquired) E03.9 GERD (gastroesophageal reflux disease) K21.9 COPD (chronic obstructive pulmonary disease) J44.9 Hypertension I10 Type 2 diabetes mellitus E11.9 Hyperlipidemia E78.5 Coronary artery disease I25.10 Time Spent (min) 46
[2024-05-02] MEDS: VANCOMYCIN HCL 1,500 MG in SODIUM CHLORIDE 0.9% 500 ML IV STA (21:59)
[2024-05-02] MEDS: SODIUM CHLORIDE 0.65% NA SOLN 45 ML (OCEAN) PRN (23:14)
[2024-05-02] MEDS: SODIUM CHLORIDE 0.65% NA SOLN 45 ML (OCEAN) ONE (23:17)
[2024-05-03] MEDS: guaiFENesin 600 MG TABCR PO PRN (04:10)
[2024-05-03] MEDS: LEVOTHYROXINE SODIUM 200 MCG TABLET PO SCH (06:08)
[2024-05-03] MEDS: oxyCODONE HCL IR 5 MG TAB (IMMEDIATE RELEASE) PO PRN (08:02)
[2024-05-03] MEDS: UMECLIDINIUM/VILANTEROL 62.5/25MCG 7 PUFFS/INHALER INH SCH (08:03)
[2024-05-03] MEDS: FLUTICASONE FUROATE 100MCG 14 PUFFS/INHALER INH SCH (08:03)
[2024-05-03] MEDS: CYANOCOBALAMIN (B-12) 500 MCG TABLET PO SCH (08:04)
[2024-05-03] MEDS: ASPIRIN 81 MG ECTAB PO SCH (08:04)
[2024-05-03] MEDS: FOLIC ACID 1 MG TAB PO SCH (08:05)
[2024-05-03] MEDS: MONTELUKAST SODIUM 10 MG TABLET PO SCH (08:05)
--- NOTE | 2024-05-03 13:49 | Surgery Progress Note ---
Date of Service May 03, 2024 Assessment & Plan (1) Stenosis of left internal carotid artery: Plan: This patient is postoperative day 1 from a redo left TCAR. She is doing well without complaints other than a mild incisional discomfort. She has no neurological deficit and is doing well after her procedure. She will be transferred to the floor for observation overnight and most likely discharged tomorrow. Admission and Anticipated Discharge Date Admission Date: May 02, 2024 Subjective This is a 63-year-old female who is postoperative day 1 from a redo left TCAR. She has no complaints other than some slight soreness along the incision site. Physical Exam Constitutional: WD/WN, vitals as above Neck: trachea midline Respiratory: normal respiratory effort; no respiratory distress Cardiovascular: Rate/Rhythm: regular rate and regular rhythm Skin: + incision (Incision is dry and clean) Neurologic: CN's II-XI intact bilaterally and moves all extremities Psychiatric: A+Ox3, euthymic affect Results & Data Vital Signs (Past 12 Hours) Vital Signs Pulse Pulse Resp BP BP Pulse Ox O2 Del Method 05/03/24 12:00 79 17 96 05/03/24 11:03 60 13 93 05/03/24 10:06 63 23 96 05/03/24 09:00 63 19 95 05/03/24 08:00 63 18 96 05/03/24 07:30 Room Air 05/03/24 07:09 65 05/03/24 07:00 66 21 97 05/03/24 06:51 66 14 97 05/03/24 06:42 66 25 H 97 05/03/24 06:30 66 24 96 05/03/24 06:18 68 18 97 05/03/24 06:00 76 14 98 Nasal Cannula 05/03/24 05:00 68 17 95 Nasal Cannula 05/03/24 04:09 67 18 96 Nasal Cannula 05/03/24 04:00 78 24 115/56 L 97 Nasal Cannula 05/03/24 03:24 68 21 100 Nasal Cannula 05/03/24 02:00 66 20 124/49 L 98 Nasal Cannula O2 Flow Rate FiO2 05/03/24 12:00 05/03/24 11:03 05/03/24 10:06 05/03/24 09:00 05/03/24 08:00 05/03/24 07:30 05/03/24 07:09 05/03/24 07:00 05/03/24 06:51 05/03/24 06:42 05/03/24 06:30 05/03/24 06:18 05/03/24 06:00 3 05/03/24 05:00 3 05/03/24 04:09 3 05/03/24 04:00 3 05/03/24 03:24 3 05/03/24 02:00 3 32
[2024-05-03] MEDS ORDERED: NON-FORMULARY MEDICATION (Cpap Machine misc) SCH (15:29)
[2024-05-03] MEDS: APIXABAN 5 MG TABLET PO SCH (20:30)
--- NOTE | 2024-05-04 09:37 | Surgery Progress Note ---
Date of Service May 04, 2024 Assessment & Plan (1) Stenosis of left internal carotid artery: Plan: This patient is POD #2 from a redo left TCAR. She is doing well without complaints other than incisional discomfort. She has no neurological deficit and is doing well after her procedure. Discusssed with Dr Aiken. Pt ok for d/c home today. Admission and Anticipated Discharge Date Admission Date: May 02, 2024 Subjective This is a 63-year-old female who is pod #2 from a redo left TCAR. She has no complaints other than PAIN along the incision site. Taking PO well, pain meds effective Review of Systems Review of Systems: All systems reviewed & are unremarkable except as noted in HPI & below Physical Exam Constitutional: WD/WN, vitals as above Neck: trachea midline Respiratory: normal respiratory effort; no respiratory distress Cardiovascular: Rate/Rhythm: regular rate and regular rhythm Skin: + incision (Incision is dry and clean) Neurologic: CN's II-XI intact bilaterally and moves all extremities Psychiatric: A+Ox3, euthymic affect Results & Data Vital Signs (Past 12 Hours) Vital Signs Temp Pulse Resp BP Pulse Ox O2 Del Method O2 Flow Rate 05/04/24 08:37 36.4 C L 56 L 16 122/70 100 Nasal Cannula 5 05/04/24 08:27 61
--- NOTE | 2024-05-04 09:39 | Discharge Summary ---
Date of Service May 04, 2024 Admission HPI Per Admitting Provider Name: YUMI DOWLING Patient Number: [id number] : 1960 Date of Service: 04/24/2024 Chief Complaint: _Follow-up after CT scan HPI: _Ms. Tonia Carrington is an elderly female who [facility] Dr[facility] Sheld[facility] for a follow-up visit after undergoing a CTA of her neck to better evaluate her previously placed carotid stents. As you may remember, patient is status post right TCAR procedure in November 2022, and a left TCAR procedure in January 2023. Postoperative imaging had indicated possible restenosis in her stents, which were evaluated with a CTA last summer when found to be more related to severe tortuosity than true restenosis. Upon returning for a follow-up appointment here few weeks ago, she was found to have extremely elevated velocities in her carotid stents and sent for a CTA again to better evaluate. Patient denies any new symptoms of cerebrovascular insufficiency including amaurosis, extremity weakness numbness or tingling, difficulty speaking or swallowing, facial droop, sudden onset confusion, other complaints. She has remained on her aspirin, Plavix, and statin medications in addition to her chronic Eliquis. She is still under investigation for causes of severe GI bleeding resulting in hemoglobins as low as 6 and requiring significant transfusions in the past few months. [facility] at [facility] indicates no significant re stenosis in the right TCAR stent, but does demonstrate severe stenosis at the distal end of her left TCAR stent and just distal to the stent. Current Home Meds: (Last Updated 03/26 15:13) DULoxetine (DULoxetine 60 mg oral delayed release capsule) TAKE ONE CAPSULE BY MOUTH TWICE DAILY adalimumab (Humira Pen (citrate free) 40 mg/0.4 mL SQ kit) 40 mg subQ q7days albuterol (albuterol 0.083% for nebulization) 2.5 mg inhaled q6h PRN: as needed for wheezing albuterol (albuterol CFC free 90 mcg/inh MDI) 2 puff inhaled qid PRN: as needed for wheezing apixaban (apixaban 5 mg oral tablet) 5 mg PO bid aspirin (Aspirin Low Dose 81 mg oral delayed release tablet) 1 tab PO Daily benzonatate (benzonatate 200 mg oral capsule) 200 mg PO tid busPIRone (busPIRone 10 mg oral tablet) 10 mg PO tid cholecalciferol (cholecalciferol 25 mcg (1000 intl units) oral tablet) 25 mcg PO Daily clobetasol topical (clobetasol 0.05% topical lotion) 1 appl topical Daily clopidogrel (Plavix 75 mg oral tablet) 1 tab PO Daily cyanocobalamin (cyanocobalamin 500 mcg oral tablet) 500 mcg PO Daily doxycycline (doxycycline hyclate 100 mg oral tablet) TAKE ONE TABLET BY MOUTH EVERY DAY esomeprazole (esomeprazole 40 mg oral delayed release capsule) TAKE ONE CAPSULE BY MOUTH TWICE DAILY ezetimibe (ezetimibe 10 mg oral tablet) TAKE ONE TABLET BY MOUTH AT BEDTIME ferrous sulfate (ferrous sulfate 325 mg (65 mg elemental iron) oral delayed release tablet) 325 mg PO tid fluticasone/umeclidinium/vilanterol (fluticasone/umeclidinium/vilanterol 100 mcg-62.5 mcg-25 mcg/inh inhalation powder) 1 puff inhaled Daily folic acid (folic acid 1 mg oral tablet) 1 mg PO Daily guaiFENesin (guaiFENesin 1200 mg oral tablet, extended release) 1,200 mg PO q12h hydrOXYzine (hydrOXYzine pamoate 25 mg oral capsule) 25 mg PO tid PRN: as needed for anxiety levocetirizine (levocetirizine 5 mg oral tablet) TAKE ONE TABLET BY MOUTH AT BEDTIME levothyroxine (levothyroxine 200 mcg (0.2 mg) oral tablet) TAKE ONE TABLET BY MOUTH IN THE MORNING levothyroxine 75 mcg PO Daily loperamide 2 mg PO q6h PRN: as needed for loose stool magnesium oxide (magnesium oxide 400 mg (241.3 mg elemental magnesium) oral tablet) 400 mg PO tid methocarbamol (methocarbamol 500 mg oral tablet) 1,000 mg PO qid metoprolol (metoprolol succinate 25 mg oral tablet, extended release) 25 mg PO bid mometasone topical (mometasone 0.1% topical cream) 1 appl topical Daily montelukast (montelukast 10 mg oral tablet) 10 mg PO qPM mupirocin topical (mupirocin 2% topical ointment) 1 appl topical tid nitroglycerin (nitroglycerin 0.4 mg sublingual tablet) 0.4 mg SL q5min PRN: as needed for chest pain nystatin topical (nystatin 100,000 units/g topical powder) oxyCODONE (oxyCODONE 10 mg oral tablet) 10 mg PO q6h PRN: Pain oxybutynin (oxybutynin 5 mg oral tablet) TAKE ONE TABLET BY MOUTH EVERY12 HOURS NEEDED FOR BLADDER SPASMS pravastatin (pravastatin 20 mg oral tablet) TAKE two TABLETs BY MOUTH AT BEDTIME semaglutide (semaglutide 4 mg/3 mL subcutaneous solution) 1 mg subQ q7days sucralfate (sucralfate 1 g oral tablet) TAKE ONE TABLET BY MOUTH TWICE DAILY NEEDED FOR acid reflux traZODone (traZODone 100 mg oral tablet) TAKE four TABLETS BY MOUTH AT BEDTIME Allergies and Sensitivities: fluticasone(Thrush) Allergy Not found in Search(Vomiting) buprenorphine(Vomiting) Bee stings(Anaphylaxis) fentaNYL(Somnolence) fentaNYL(Respiratory depression) penicillin(Anaphylaxis) OXcarbazepine(Diarrhea) OXcarbazepine(Upset stomach) salmeterol(Headache) ketorolac(Headache) naloxone(Nausea) cephalexin(Nausea) clindamycin(Diarrhea) ondansetron(Migraine) levoFLOXacin(Upset stomach) Adhesive bandage(Blisters) pregabalin(Shortness of breath) Bactrim(Nausea) Past Medical History: Problems: Internal carotid artery stent present Tobacco user Carotid stenosis, bilateral OBJECTIVE Vitals: Last Updated 04/24/24 14:04 Date Temp BP Location Pulse RR SpO2 Pain 04/24/24 136/72 Right Arm 68 94 04/24/24 0 03/26/24 132/54 Right Arm Vital Signs are the last 3 documented. No Orthostatic Data Available Height and Weight: Last Updated 02/08/23 13:52 Date BMI Wt(kg) Wt(lb) Method Ht(cm) (ft-in) Method 02/08/23 119 262 Standing Scale 12/23/22 120 264 Standing Scale Heights and Weights are the last 3 documented. Physical Exam Constitutional: In general patient is obese but healthy-appearing well-nourished well-developed elderly female no distress. She is alert and oriented with no focal deficits. She does ambulate with a cane. Her carotids do demonstrate a faint bruit. Her heart is irregular. Her lungs are decreased but clear. Her abdomen is benign. Her neuro exam is intact. ASSESSMENT: _ PLAN: _ 1 ) _left TCAR restenosis Patient is about 15 months status post left TCAR, and unfortunately appears to have a severe restenosis or residual stenosis at the distal end of her stent and just distal to the stent. Due to this finding, and her risk of CVA, we recommend that patient consider undergoing a redo left TCAR procedure in order for us to extend the current stent. The procedure benefits and alternatives were discussed at length with the patient. The risks of the procedure including bleeding, infection, stroke, myocardial infarction, local nerve damage, and were discussed at length with the patient by myself Dr. Sheldon's request. Patient expresses understanding and agreement to proceed. This will occur in the next few weeks at the patient's convenience. 2 ) _bilateral carotid stenosis Patient is a little over 1 year status post bilateral TCAR's, now with a left TCAR restenosis. Her right TCAR remains patent. This will be reevaluated at a later date. Patient is advised to call any questions or concerns. She is agreeable this plan. Thank you for letting us participate in the care of this patient. I have personally spent_29__ minutes performing [id number]-[id number] and akr-zadz-hy-face activities on this date of service.Time does not include separately reported services. Activities Include: _x_ review of the medical record _x_ obtaining a history _x_ physical exam/evaluation __ review labs _x_ review radiology reports _x_ counseling/educating patient/family/caregiver __ discussion/referral to other healthcare professional _x_ documenting care in the medical record __ independent interpretation of results _x_ communication of results to patient/family/caregiver x__ coordination of care Signature Line Electronic Signature on File CC: Gerda Johnson DO [address] [facility] [id number] * CC: Ajay Plaza MD [address] [place] [id number] * Electronically Reviewed/Signed by: Theresa Patterson PA-C Author Signature Dt/Tm:04/24/2024 04:45 PM [facility] [place], [address] [place] [address] LM Result Type: HVI Outpt Note Date of Service: April 24, 2024 16:38 EDT Authorization Status: Final Author or Import Date: HAMILTON Patterson Lynn on April 24, 2024 16:45 EDT Verified By: HAMILTON Patterson Lynn on April 24, 2024 16:45 EDT Encounter info: [id number], [place] [id number], Clinic, 04/24/2024 - 04/24/2024 Admission Exam Per Admitting Provider Vitals: Last Updated 04/24/24 14:04 Date Temp BP Location Pulse RR SpO2 Pain 04/24/24 136/72 Right Arm 68 94 04/24/24 0 03/26/24 132/54 Right Arm Vital Signs are the last 3 documented. No Orthostatic Data Available Height and Weight: Last Updated 02/08/23 13:52 Date BMI Wt(kg) Wt(lb) Method Ht(cm) (ft-in) Method 02/08/23 119 262 Standing Scale 12/23/22 120 264 Standing Scale Heights and Weights are the last 3 documented. Physical Exam Constitutional: In general patient is obese but healthy-appearing well-nourished well-developed elderly female no distress. She is alert and oriented with no focal deficits. She does ambulate with a cane. Her carotids do demonstrate a faint bruit. Her heart is irregular. Her lungs are decreased but clear. Her abdomen is benign. Her neuro exam is intact. Principal Diagnosis 1. s/p L TCAR redo 2. L ICA restenosis Discharge Exam Constitutional WD/WN, vitals as above Neck trachea midline Respiratory normal respiratory effort; no respiratory distress Cardiovascular Rate/Rhythm: regular rate and regular rhythm Skin + incision (Incision is dry and clean) Neurologic CN's II-XI intact bilaterally and moves all extremities Psychiatric A+Ox3, euthymic affect Discharge Data Allergies Allergy/AdvReac Type Severity Reaction Status Date / Time bee pollen Allergy Severe Anaphylaxis Verified 05/02/24 10:34 fentanyl Allergy Severe Severe Verified 05/02/24 10:34 sedation, resp depression (only with patches) Penicillins Allergy Severe Anaphylaxis Verified 05/02/24 10:34 pregabalin Allergy Severe Shortness Verified 05/02/24 10:34 of breath honey Allergy Intermediate Hives Verified 05/02/24 10:34 adhesive Allergy Mild Blister Verified 05/02/24 10:34 (wipe some plastic tape) oxcarbazepine AdvReac Severe Severe Verified 05/02/24 10:34 [From Trileptal] stomach issues sulfamethoxazole AdvReac Severe Severe Verified 05/02/24 10:34 nausea trimethoprim AdvReac Severe Severe Verified 05/02/24 10:34 nausea buprenorphine [From Suboxone] AdvReac Intermediate Vomiting, Verified 05/02/24 10:34 skin problems clindamycin AdvReac Intermediate Diarrhea Verified 05/02/24 10:34 fluticasone AdvReac Intermediate Severe Verified 05/02/24 10:34 thrush ketorolac AdvReac Intermediate Migraine Verified 05/02/24 10:34 levofloxacin [From Levaquin] AdvReac Intermediate IBS ("can Verified 05/02/24 10:34 only tolerate for 5 days") naloxone [From Suboxone] AdvReac Intermediate Severe Verified 05/02/24 10:34 nausea, SKIN PROBLEMS ondansetron [From Zofran] AdvReac Intermediate Migraine Verified 05/02/24 10:34 saccharin [From Sweeta] AdvReac Intermediate Severe Verified 05/02/24 10:34 vomiting salmeterol AdvReac Intermediate Severe Verified 05/02/24 10:34 thrush cephalexin AdvReac Mild Nausea Verified 05/02/24 10:34 Consultations 05/02/24 16:36 Consult Warehouse Representative Routine Procedures Performed Operation Date: 05/02/24 13:00 Actual Procedures p Redo Left Transcarotid Artery Revascularization, with Right Femoral Vein Ultrasound Access(Left) - Celso Sheldon MD Ordered Studies 05/02/24 07:06 EV angio carotid cerv LT Routine US EV guide vascular access Routine Hospital Course (1) Stenosis of left internal carotid artery: This patient is POD #2 from a redo left TCAR. She is doing well without comp laints other than incisional discomfort. She has no neurological deficit and is doing well after her procedure. Discusssed with Dr Sheldon. Pt ok for d/c home today. Total Time Total Time Spent Total Time Spent (In Minutes): 0 Discharge Plan Discharge Items Reason For Visit: Left Carotid Artery Stenosis Discharge Diagnosis: 1. s/p L TCAR redo 2. L ICA restenosis Activity: Per Instructions section Non-emergency contact: Primary Care Provider and Surgeon Call non-emergency contact if: you have any medication questions, your symptoms worsen, your pain is not controlled, your pain is concerning for you, you have a fever, your wound has increased redness, your wound has increased drainage and your wound pain has increased Follow-up/Referrals: Gerda Johnson DO [Primary Care Provider] - (Follow up with your PCP within 2 weeks) Celso Sheldon MD [Physician] - (Follow up with Dr Sheldon or Theresa Patterson PA-C, in 2 weeks) Diet: Heart Healthy Addtl Attending Provider Instructions: SPECIAL CARE INSTRUCTIONS: Medications: * Continue to take Aspirin, Plavix, and statin medication as directed. DO NOT STOP THESE MEDICATIONS WITHOUT SPEAKING TO DR SHELDON'S OFFICE Incision Care: * You may shower, but do not rub incision. You may let the warm soapy water run over it. Be sure to dry the incision well after bathing. * Do not shave directly over the incision until it is healed. * DO NOT IMMERSE THE INCISION IN A TUB/POOL/etc. UNTIL HEALED. Restrictions: * Do not drive for at least one week or if you are still taking any narcotic pain medication. * Do not lift anything heavier than a gallon of milk for one week after going home. Possible Complications: * Numbness - It is normal to have some numbness around the incision. Numbness can extend beyond the incision to areas of the neck, ear and face. The numbness is due to bruising of nerves during the surgery and will gradually improve over a period of months. * Hoarseness/Difficulty Speaking and Swallowing - The bruising of nerves in the neck can also cause a hoarse voice, difficulty speaking or swallowing. This may improve over time, HOWEVER, if it continues for more than a few days please contact our office ([phone]). * Excessive Swelling - There will be some swelling immediately after surgery which usually resolves within one week. If you notice that the swelling is getting worse, notify your surgeon ([phone]). * Drainage/Bleeding - If there is any drainage or bleeding, it should be a very small amount (less than a teaspoon per day). If you have excessive bleeding or drainage from the incision, call your surgeon ([phone]) right away. ACTIVATION OF EMERGENCY MEDICAL SYSTEM: Call 911, immediately, if you experience any of the following: Warning Signs and Symptoms of Stroke: * Sudden numbness or weakness of the face, arm or leg, especially on one side of the body * Sudden confusion, trouble speaking or understanding * Sudden trouble seeing in one or both eyes * Sudden trouble walking, dizziness, loss of balance or coordination * Sudden severe headache with no cause Do not delay calling 911 if you experience any warning signs or symptoms of a stroke. Delay in seeking medical attention may affect what treatments can be given to you. Risk Factors for Stroke: You can reduce your chances of stroke by working with your medical provider to adopt a healthy lifestyle. Some specific ways to lower your chance of stroke are: * If you are a smoker, now is the time to stop smoking cigarettes * If you are diabetic, improve the control of your blood sugars * Avoid excessive amounts of alcohol * Control high blood pressure * Lose weight if you are overweight * Be sure to lead an active lifestyle * Eat a healthy diet low in salt, cholesterol and fat You should know about other risk factors for stroke that you are unable to control. These include: * Age 55 years or older * Male gender * Certain racial groups: , or / * Family History of Stroke, Mini stroke or Heart Attack * Sickle Cell Disease You will be receiving a call from the Vascular Surgery Nurse after you are discharged. FOLLOW UP VISIT: It is important for you to keep your follow up appointments with your medical pr ovider. Keep any scheduled doctor appointments. Pending Studies at Discharge: No Stand-Alone Forms: My [facility], Smoking Cessation Medications and DC Order Prescriptions: Continued (DME) Hospital Bed [facility] See Rx Instructions .ROUTE .MEDSUPPLY Qty: 1 0RF Rx Instructions: Dx: M19.90, M96.1, M51.9, M48.02, M48.04, J44.9 (DME) blood-glucose meter [OneTouch Verio Meter] [facility] See Rx Instructions .ROUTE .MEDSUPPLY Qty: 1 0RF Rx Instructions: As directed (DME) lancets [OneTouch Delica Lancets] 30 gauge amg [facility] See Dose Instructions .ROUTE .MEDSUPPLY Qty: 200 4RF Dose Instruction: As directed Rx Instructions: testing four times per day. albuterol sulfate 2.5 mg/0.5 mL solution for nebulization 2.5 mg INHALATION QID PRN (Reason: Wheezing) Qty: 30 5RF mometasone 0.1 % cream 1 applic topical DAILY PRN (Reason: allergic reaction) Qty: 15 3RF Rx Instructions: Apply to affected ear once daily as needed for itching cholecalciferol (vitamin D3) 250 mcg (10,000 unit) tablet 500 mcg PO DAILY cyanocobalamin (vitamin B-12) 500 mcg tablet 1,000 mcg PO DAILY Qty: 60 5RF (DME) blood sugar diagnostic Strip See Dose Instructions .ROUTE .MEDSUPPLY Qty: 100 5RF Dose Instruction: As directed Rx Instructions: testing four times per day. duloxetine [Cymbalta] 60 mg capsule,delayed release(DR/EC) 60 mg PO BID Qty: 60 11RF montelukast [Singulair] 10 mg tablet 10 mg PO QAM Qty: 90 1RF pravastatin 40 mg tablet 40 mg PO HS Qty: 90 3RF ezetimibe [Zetia] 10 mg tablet 10 mg PO HS Qty: 90 3RF hydroxyzine pamoate [Vistaril] 25 mg capsule 25 mg PO TID PRN (Reason: Anxiety) Qty: 60 5RF levothyroxine 200 mcg tablet 200 mcg PO QAM Qty: 90 1RF Rx Instructions: please change to 90 day supply trazodone 100 mg tablet 300 mg PO HS 90 Days Qty: 270 2RF silver sulfadiazine [Silvadene] 1 % cream 1 applic topical DAILY PRN (Reason: wound healing) Qty: 50 1RF Patient Comments: finished with this 10/26/23 Rx Instructions: apply a 1.5 mm thickness esomeprazole magnesium [Nexium] 40 mg capsule,delayed release(DR/EC) 40 mg PO BID Qty: 180 1RF levocetirizine [Xyzal] 5 mg tablet 5 mg PO HS Qty: 90 1RF folic acid 1 mg tablet 1 mg PO QAM Qty: 90 3RF gabapentin 800 mg tablet 800 mg PO UD Qty: 105 3RF Rx Instructions: 800 mg PO 1 tablet QAM, 1 tablet QPM, and 1.5 tablet HS; (VERIFIED PAT 11/24/22) sucralfate [Carafate] 1 gram tablet 1 g PO BID PRN (Reason: Acid Reflux) Qty: 60 0RF Eliquis 5 mg tablet 5 mg PO BID Qty: 90 1RF Patient Comments: TO BE STOPPED DAY BEFORE SURGERY PER DR SHELDON , TAKE NONE ON THE / DR PATTERSON IS ALSO AWARE buspirone 10 mg tablet See Rx Instructions .ROUTE .COMPLEX Qty: 405 1RF Rx Instructions: Take 1 tab PO in AM and afternoon, 1.5 tabs PO QHS nitroglycerin [Nitrostat] 0.4 mg tablet, sublingual 0.4 mg Sublingual UD PRN (Reason: Pain) Qty: 25 5RF Patient Comments: HAVEN'T USED IN AGES epinephrine [EpiPen 2-Manny] 0.3 mg/0.3 mL auto-injector 0.3 mg IM Q10M PRN (Reason: anaphylaxis) Qty: 2 1RF Rx Instructions: for 2 doses magnesium oxide 400 mg magnesium tablet 400 mg PO TID Qty: 270 1RF benzonatate 200 mg capsule 200 mg PO BID PRN (Reason: cough) Qty: 30 4RF Ozempic 1 mg/dose (4 mg/3 mL) pen injector 1 mg subcut WK Qty: 3 3RF Patient Comments: takes on wednesdays > last dose 10/19/23 Rx Instructions: WEDNESDAYS oxycodone 10 mg tablet 10 mg PO Q8H PRN (Reason: pain, severe) Qty: 90 0RF Hold Instructions: Hold refill Oxycodone. UA Neg despite #90 tabs monthly. oxybutynin chloride 5 mg tablet 5 mg PO BID Qty: 30 0RF (DME) Oxygen Home Liters Per Minute See Rx Instructions .ROUTE .MEDSUPPLY Dose Instruction: As directed Rx Instructions: 3LPM via NC @ HS. doxycycline hyclate 100 mg capsule 100 mg PO QPM (DME) CPAP Machine Misc .Route Qty: 1 0RF Rx Instructions: CPAP 10 cm of water with oxygen bleed at 1 L/min, mask fit patient comfort, heated modification, compliance download capabilities, DME: [facility] medical equipment adalimumab 40 mg/0.8 mL syringe kit 40 mg subcut WK Rx Instructions: every tuesday metoprolol succinate 25 mg tablet extended release 24 hr 25 mg PO BID Qty: 180 3RF Hold Instructions: hypotensive betamethasone dipropionate 0.05 % cream 1 applic topical BID PRN (Reason: skin irritation) Qty: 45 0RF clobetasol 0.05 % lotion 1 applic TOP BID PRN (Reason: itching) 14 Days Qty: 59 3RF clobetasol 0.05 % cream 1 applic topical BID PRN (Reason: rash) Qty: 60 1RF Trelegy Ellipta 100-62.5-25 mcg blister with device 1 inh INH QAM Qty: 60 5RF albuterol sulfate 90 mcg/actuation HFA aerosol inhaler 2 puff INHALATION Q6H PRN (Reason: Wheezing) Qty: 18 5RF clotrimazole-betamethasone 1-0.05 % cream 1 applic topical BID Qty: 45 0RF Rx Instructions: STARTED 03/27/24 FOR 14 DAYS. methocarbamol 500 mg tablet 1,000 mg PO QID 30 Days Qty: 240 1RF nystatin 100,000 unit/gram powder 1 applic topical BID Qty: 30 2RF Rx Instructions: STARTED 03/27/24 FOR 14 DAYS. guaifenesin [Mucinex] 1,200 mg Tablet Extended Release 12hr 1,200 mg PO Q12H PRN (Reason: Nasal Congestion) aspirin 81 mg Capsule 81 mg PO QAM clopidogrel [Plavix] 75 mg tablet 75 mg PO QAM Nurtec ODT 75 mg tablet,disintegrating 75 mg PO .COMPLEX PRN (Reason: Migraine Headache) Rx Instructions: 75 mg orally PRN at onset of migraine. 1 in 24 hours.; limit 2-3 days a week Admission Data Admit Date/Time: 05/02/24 12:32 Attending Provider: Celso Sheldon Admit Provider: Celso Sheldon Primary Care Provider: Gerda Johnson Other Providers: Skinny Cid; Owen Salinas; Christian Gonzalez; Anirudh Zhao; Ata Chan; Jonathan Moya; Jose David Haywood; Martita Yuan; Mary Shaffer; Raffi Garcia; Berto Bean; Delia Mckay
[2024-05-04 13:01] VITALS: BP 121/72; PULSE 64; RESP 16; TEMP 97.9; O2SAT 93
[2024-05-05] MEDS ORDERED: CHOLECALCIFEROL 125 MCG (5,000 UNITS) TAB PO SCH (09:00)
== END 2024-05-04 13:25 | disposition home health service (06) | DRG 253 ==
LOC: ASU 09:41 → 1E 12:32 → 3W 05-03 15:45
PROC: EV.TCAR (2024-05-02 13:00)

== ENCOUNTER 2024-05-25 10:03 | Inpatient (IN) ==
--- NOTE | 2024-05-25 10:29 | Emergency Department Note ---
Impression & Plan GIB (gastrointestinal bleeding) ADMIT ED Provider Note HPI: History obtained from patient. The patient is a 63-year-old female with history of atrial fibrillation, currently on Eliquis, patient is status post TCAR procedure earlier this April and is also on aspirin and Plavix, who presents the emergency department with a chief complaint of anemia. Patient states that over the past 2 days she has had some bright red blood per rectum that she thought was secondary to her internal hemorrhoids. Patient had some lab work done as an outpatient because of this and she was told that her hemoglobin was 5.0. Patient states over the past 2 days she has had some mild chest discomfort and shortness of breath as well. On arrival here to the ED, the patient is hemodynamically stable with a blood pressure of 126/56, she is saturating well on room air. Patient denies any abdominal pain, denies any vomiting. ROS: - Per HPI Differential Diagnosis: Lower GI bleed, internal hemorrhoids, acute colitis, symptomatic anemia, acute coronary syndrome, pneumonia, CHF exacerbation, pulmonary edema, amongst other potential pathologies. *Outpatient medications and allergy history reviewed. PE: General: Alert, morbidly obese, no acute distress HEENT: Normocephalic, trachea midline Eyes: Extraocular eye movement is intact, no scleral erythema Pulmonary: Clear to auscultation bilaterally, no wheezing Cardio: Regular rate and rhythm GI: Abdomen is soft to palpation, rectal examination was performed with female RN at the bedside, there is evidence of external hemorrhoids without any evidence of gross bleeding, occult stool testing is positive : No suprapubic tenderness MSK: No evidence of trauma or malformation of the extremities, no edema Skin: No evidence of rash Neuro: Alert, no focal deficits Psychiatric: Cooperative INDEPENDENT INTERPRETATIONS: electronic device monitor: (As interpreted by myself): - An order was placed for continuous cardiac monitoring - Patient was noted to be in sinus rhythm with a rate of 75 EKG: (As interpreted by myself): Rate: 71 Rhythm: Normal sinus rhythm Intervals: Within normal limits ST changes: No ST elevation Time: 1051 Interventions provided in ED: -Packed red blood cell transfusion ordered, IV fluid bolus Medical Decision Making: IV was established and lab work obtained, patient was placed on monitoring and evaluation advisor. Lab work shows no leukocytosis, hemoglobin is noted to be 5.2, platelet count is normal, CMP does not show any evidence of any critical findings, troponin is negative x 1. EKG per my interpretation shows normal sinus rhythm without any acute ischemic changes. Occult stool testing performed at the bedside is positive. Patient denies any abdominal pain. I suspect that her dyspnea is likely related to symptomatic anemia. She states she has had some blood per rectum recently. Despite the patient's anemia, she is hemodynamically stable here in the ER, will hold on any potential reversal such as Kcentra and allow for packed red blood cell transfusion to occur. Patient was consented for packed red blood cell transfusion, she was given IV fluids here in the ED and remained hemodynamically stable. I discussed the patient's presentation with the on-call hospitalist, Dr. Escobar, and the patient was placed for admission in stable condition. Consultants/Discussions held with other healthcare providers: -Hospitalist, Dr. Escobar Disposition discussion held by myself with: -Patient Diagnosis: 1. Lower GI bleed, acute 2. Symptomatic anemia, acute 3. History of paroxysmal atrial fibrillation, currently on Eliquis 4. External hemorrhoids, chronic Disposition: Admission Chin Blancas DO Emergency Medicine Past Med/Surg History Problem List (Updated 05/25/24 @ 13:47 by Chin Blancas DO) GIB (gastrointestinal bleeding) (Acute) Bright red blood per rectum Iron deficiency Anemia Insomnia Migraines History of left common carotid artery stent placement (01/20/23) Stenosis of left internal carotid artery History of TIA (transient ischemic attack) Bilateral carotid artery stenosis Morbid obesity BMI 43.2 Chronic hyponatremia Incontinence Severe sleep apnea 3L oxygen via N/C- (WAITING ON CPAP DEVICE) Follows with pulm Ulnar neuropathy at elbow of left upper extremity Cervical radiculopathy Esophageal dysphagia Ataxia Chronic antibiotic suppression Subjective memory complaints Diabetic peripheral neuropathy Neurogenic claudication due to lumbar spinal stenosis Anemia Chronic anticoagulation (Acute) " CLOTTING PROBLEM' x 5 YRS F/U DR PATTERSON Lumbar spondylosis Chronic low back pain Gastritis Hypomagnesemia (Acute) Chronic diarrhea Anxiety AF (paroxysmal atrial fibrillation) Takes Eliquis, follows with Dr. Plaza, no pacer NO HX CARDIOVERSION Thoracic spinal stenosis Dysfunction of right eustachian tube Dermatitis of both ear canals Obesity hypoventilation syndrome Degenerative joint disease of shoulder BILATERAL Hypothyroidism (acquired) S/p thyroidectomy 2015 (final pathology negative for malignancy) Psoriatic arthritis No meds at this time- follows with rheum Sensorineural hearing loss (SNHL) of both ears (Chronic) Hypertension GERD (gastroesophageal reflux disease) Degenerative cervical spinal stenosis (Chronic) COPD (chronic obstructive pulmonary disease) rare res inh use per pt > more fall season Chronic interstitial cystitis Allergic rhinitis Type 2 diabetes mellitus Pulsatile tinnitus (Chronic) Lumbar disc disease (Chronic) Failed back syndrome (Chronic) Diabetic neuropathy Depression Coronary artery disease Minor nonobstructive CAD per September 2012 cath per cardio records No hx stents or angioplasty Osteoarthritis (Chronic) Hyperlipidemia controlled per pt On home oxygen therapy (Chronic) 5L/MIN NC HS Medical History (Updated 05/25/24 @ 13:47 by Chin Blancas DO) Thoracic spinal stenosis Type 2 diabetes mellitus Severe sleep apnea O2 2-5 L at night, no cpap, follows pulm Dr. Dr. Chan Neurogenic claudication Obesity hypoventilation syndrome On home oxygen therapy 2-5 l nc at night Lumbar disc disease Hypothyroidism (acquired) Hypomagnesemia History of left common carotid artery stent placement (01/20/23) Hx of gastritis Failed back syndrome CAD (coronary artery disease) Chronic low back pain Chronic interstitial cystitis Chronic hyponatremia Chronic anticoagulation Chronic antibiotic suppression Cervical radiculopathy limited rom Ataxia Anxiety Allergic rhinitis Paroxysmal atrial fibrillation IBS (irritable bowel syndrome) DJD of both shoulders "bone on bone" unable to have surgery due to blood thinners, has chronic pain both arms Chronic diarrhea Iron deficiency Last iron infusion on 04/20/24 at [facility] Anemia (03/31/24) recently admitted to [facility], has had 6 units PRBC's recently. Will have 1 unit PRBC at [facility] on 04/27/[address] Dickson History of dysphagia History of esophageal dilatation (10/31/23) Incontinence sees Dr. Bellamy Insomnia Hx of migraines rare Osteoarthritis Rheumatoid arthritis follows with pancho Gonzales at [facility] Psoriatic arthritis Depression Hyperlipidemia Hypertension GERD (gastroesophageal reflux disease) Diabetic neuropathy COPD (chronic obstructive pulmonary disease) chronic cough, has been using inhalers frequently, follows with Dr. Chan, O2 3-5 L nc at bedtime Clotting disorder per Dr. Dickson, per pt, unsure what type TIA (transient ischemic attack) (2013) 2013 > no residual effects - follows with dr. velázquez History of seizures Age 3 (in setting of fever/measles) > nothing since Meralgia paresthetica of right side Follows with neuro - Dr. Velázquez Mixed hearing loss of right ear No hearing aids History of MA (myocardial infarction) (2009) 2009 > nothing since > no stents Personal history of pulmonary embolism (2013) 2013 > treated with blood thinners - fidel Personal history of skin cancer s/p excision from RLE Carotid artery narrowing Hx of thyroid cancer (2015) s/p thyroidectomy + XRT (one round) Hx of deep venous thrombosis 2013 > from Thrombophlebitis follows with Dr. Dickson Surgical History History of esophagogastroduodenoscopy (EGD) History of right common carotid artery stent placement (12/01/22) bilmaryana RODRIGUEZR, Dr Aiken History of tonsillectomy H/O colonoscopy with polypectomy History of cystoscopy Multiple History of incision and drainage (08/11/20) I&D lumbar spine incision w/ placement of abx beads and wound vac - NO CURRENT WOUND VAC/ANTIBIOTIC DAILY (DOXYCYCLINE chronic) H/O cataract extraction R/L S/P dilatation and curettage S/P section x2 History of thyroidectomy, total (2015) History of knee replacement R/L History of placement of ear tubes R/L History of cervical spinal surgery x2; limited rom-right is ok to shoulder, left is better than right History of breast biopsy Left (benign) History of appendectomy History of back surgery x 6 total lumbar (including fusion) History of cardiac cath x7 (09/2012 > no stents)- all at [place] except for 1 at [facility] (2009, [place])- Follows with Bola (q 6 months last seen January 2024) Family History Mother Diabetes Family history of diabetes mellitus Cardiac disorder Heart trouble Myocardial infarction Renal failure Family history of reaction to anesthesia Hypertension Stroke Gallbladder disease Grandfather Family hx of colon cancer Myocardial infarction Father Colon cancer Cardiac disorder Kidney stones Heart trouble Myocardial infarction Degenerative disc disease Lung disease Hypertension Stroke Aunt Colon cancer Diabetes Grandmother (Maternal) Degenerative disc disease Cancer Sister Diabetes Family history of diabetes mellitus Breast cancer Cancer Hypertension Gallbladder disease Family/Other Kidney disease Brother Multiple sclerosis Uncle Myocardial infarction Grandfather (Maternal) Family history of diabetes mellitus Aunt Diabetes Aunt Diabetes Aunt Diabetes Aunt Diabetes Aunt Diabetes Other Dementia Denies family history of Ovarian cancer Prostate cancer Adverse effect of anesthesia Bleeding disorder Social History Smoking Status: Current every day smoker Tobacco Type: E-cigarettes / Vaping Age Started Using Tobacco: 12; packs per day: 0.5; Cigarettes Per Day: Vapes daily (advised); Second Hand Exposure: No; Do You Dip or Chew Tobacco: No; Hx Alcohol Use: No Hx Substance Use: Yes Preferred Language: Romanian Communication Ability: Effective Visual Impairment: Limited Hearing Ability: Hard of Hearing Collections [employer] Director Required: No Beliefs That Will Affect Care: None marital status: Current Living Situation: Spouse and Family Current Living Situation Comment: AND SON current occupational status: unemployed How many Children do You have: 2 Feels Safe at Home: Yes Childhood Exposure to Second-Hand Smoke: Yes (father smoked) Diet: regular Diet Comment: regular caffeine: Yes during the past year weight has: increased > 10 lbs Dental Care, Regularly: Yes Physical Activity Frequency: Does not Exercise Physical Activity Frequency Comment: LIMITED BY PHYSICAL CONDITION Seatbelt Use: always Sunscreen Use: Yes Assistive Devices: Cane and Oxygen - Continuous Allergies Allergies Allergy/AdvReac Type Severity Reaction Status Date / Time bee pollen Allergy Severe Anaphylaxis Verified 05/02/24 10:34 fentanyl Allergy Severe Severe Verified 05/02/24 10:34 sedation, resp depression (only with patches) Penicillins Allergy Severe Anaphylaxis Verified 05/02/24 10:34 pregabalin Allergy Severe Shortness Verified 05/02/24 10:34 of breath honey Allergy Intermediate Hives Verified 05/02/24 10:34 adhesive Allergy Mild Blister Verified 05/02/24 10:34 (wipe some plastic tape) oxcarbazepine AdvReac Severe Severe Verified 05/02/24 10:34 [From Trileptal] stomach issues sulfamethoxazole AdvReac Severe Severe Verified 05/02/24 10:34 nausea trimethoprim AdvReac Severe Severe Verified 05/02/24 10:34 nausea buprenorphine [From Suboxone] AdvReac Intermediate Vomiting, Verified 05/02/24 10:34 skin problems clindamycin AdvReac Intermediate Diarrhea Verified 05/02/24 10:34 fluticasone AdvReac Intermediate Severe Verified 05/02/24 10:34 thrush ketorolac AdvReac Intermediate Migraine Verified 05/02/24 10:34 levofloxacin [From Levaquin] AdvReac Intermediate IBS ("can Verified 05/02/24 10:34 only tolerate for 5 days") naloxone [From Suboxone] AdvReac Intermediate Severe Verified 05/02/24 10:34 nausea, SKIN PROBLEMS ondansetron [From Zofran] AdvReac Intermediate Migraine Verified 05/02/24 10:34 saccharin [From Sweeta] AdvReac Intermediate Severe Verified 05/02/24 10:34 vomiting salmeterol AdvReac Intermediate Severe Verified 05/02/24 10:34 thrush cephalexin AdvReac Mild Nausea Verified 05/02/24 10:34 Home Meds Home Medications Medication Instructions Recorded Confirmed doxycycline hyclate 100 mg capsule 100 mg PO QPM 06/17/21 05/07/24 guaifenesin 1,200 mg tablet, 1,200 mg PO Q12H PRN Nasal 11/11/21 05/07/24 extended release 12 hr (Mucinex) Congestion aspirin 81 mg capsule 81 mg PO QAM 12/01/22 05/07/24 cholecalciferol (vitamin D3) 250 500 mcg PO DAILY 01/24/23 05/07/24 mcg (10,000 unit) tablet Oxygen Home 05/17/23 04/23/24 adalimumab 40 mg/0.8 mL 40 mg subcut WK 05/17/23 05/07/24 subcutaneous syringe kit clopidogrel 75 mg tablet (Plavix) 75 mg PO QAM 10/26/23 05/07/24 rimegepant 75 mg disintegrating 75 mg PO .COMPLEX PRN Migraine 10/26/23 05/07/24 tablet (Nurtec ODT) Headache Previous Rx's Medication Instructions Recorded Hospital Bed Home[facility] (Hospital #1 ea 11/14/19 Bed) blood-glucose meter (OneTouch #1 ea 09/18/20 Verio Meter) lancets 30 gauge (OneTouch Delica #200 ea 06/19/21 Lancets) albuterol sulfate 2.5 mg/0.5 mL 2.5 mg (0.5 mL) inhalation QID PRN 07/13/21 solution for nebulization Wheezing #30 ea CPAP Machine #1 ea 08/02/22 mometasone 0.1 % topical cream 1 applic topical DAILY PRN 10/22/22 allergic reaction #15 grams cyanocobalamin (vitamin B-12) 500 1,000 mcg (2 x 500 mcg) PO DAILY 03/15/23 mcg tablet #60 tabs blood sugar diagnostic #100 ea 05/12/23 betamethasone dipropionate 0.05 % 1 applic topical BID PRN skin 05/25/23 topical cream irritation #45 grams duloxetine 60 mg capsule,delayed 60 mg PO BID #60 caps 07/01/23 release (Cymbalta) metoprolol succinate 25 mg 25 mg PO BID #180 tabs 08/19/23 tablet,extended release 24 hr albuterol sulfate 90 mcg/actuation 2 puff inhalation Q6H PRN Wheezing 11/22/23 aerosol inhaler #18 grams clobetasol 0.05 % lotion 1 applic topical BID PRN itching 2 11/22/23 weeks #59 mL clobetasol 0.05 % topical cream 1 applic topical BID PRN rash #60 11/22/23 grams fluticasone fur. 100 mcg-umeclid 1 inh inhalation QAM #60 ea 11/22/23 62.5 mcg-vilant 25 mcg inhalat.powder (Trelegy Ellipta) ezetimibe 10 mg tablet (Zetia) 10 mg PO HS #90 tabs 12/09/23 pravastatin 40 mg tablet 40 mg PO HS #90 tabs 12/09/23 levothyroxine 200 mcg tablet 200 mcg PO QAM #90 tabs 01/09/24 trazodone 100 mg tablet 300 mg (3 x 100 mg) PO HS 90 days 01/12/24 #270 tabs esomeprazole magnesium 40 mg 40 mg PO BID #180 caps 01/26/24 capsule,delayed release (Nexium) folic acid 1 mg tablet 1 mg PO QAM #90 tabs 01/26/24 levocetirizine 5 mg tablet (Xyzal) 5 mg PO HS #90 tabs 01/26/24 silver sulfadiazine 1 % topical 1 applic topical DAILY PRN wound 01/26/24 cream (Silvadene) healing #50 grams apixaban 5 mg tablet (Eliquis) 5 mg PO BID #90 tabs 02/01/24 buspirone 10 mg tablet See Rx Instructions .Route 02/01/24 .COMPLEX #405 tabs gabapentin 800 mg tablet 800 mg PO UD #105 tabs 02/01/24 sucralfate 1 gram tablet (Carafate) 1 g PO BID PRN Acid Reflux #60 tabs 02/01/24 epinephrine 0.3 mg/0.3 mL 0.3 mg (0.3 mL) IM Q10M PRN 02/10/24 injection, auto-injector (EpiPen anaphylaxis #2 ea 2-Manny) nitroglycerin 0.4 mg sublingual 0.4 mg sublingual UD PRN Pain #25 02/10/24 tablet (Nitrostat) tabs magnesium oxide 400 mg PO TID #270 tabs 02/15/24 benzonatate 200 mg capsule 200 mg PO BID PRN cough #30 caps 03/19/24 clotrimazole-betamethasone 1 1 applic topical BID #45 grams 03/26/24 %-0.05 % topical cream methocarbamol 500 mg tablet 1,000 mg (2 x 500 mg) PO QID 30 03/27/24 days #240 tabs nystatin 100,000 unit/gram topical 1 applic topical BID #30 grams 03/27/24 powder semaglutide 1 mg/dose (4 mg/3 mL) 1 mg (0.75 mL) subcut WK #3 mL 04/09/24 subcutaneous pen injector (Ozempic) montelukast 10 mg tablet 10 mg PO QAM #90 tabs 05/07/24 (Singulair) oxybutynin chloride 5 mg tablet 5 mg PO BID #30 tabs 05/08/24 oxycodone 10 mg tablet 10 mg PO Q8H PRN pain, severe #90 05/08/24 tabs fluconazole 150 mg tablet 150 mg PO ONCE 1 day #1 tab 05/14/24 hydroxyzine pamoate 25 mg capsule 25 mg PO TID PRN Anxiety #60 caps 05/15/24 (Vistaril) Results & Data (ED) Vital Signs Vital Signs - 24 hr 05/25/24 10:06 05/25/24 10:42 05/25/24 10:53 Temperature 36.6 C Temperature Source Oral Pulse Rate 76 76 Pulse Rate from SpO2 Sensor Respiratory Rate 20 19 Respiratory Effort / Characteristics Non-Labored Spontaneous Respiratory Depth Normal Blood Pressure 126/56 L 118/67 Blood Pressure Mean 79 80 Pulse Oximetry 97 Oxygen Delivery Method Room Air Sepsis Recent Fever Within 48 Hours No Sepsis New/Unexplained Change in Mental Status N/A Sepsis Action Taken by Nursing No Action Required 05/25/24 11:06 05/25/24 11:27 05/25/24 12:07 Temperature Temperature Source Pulse Rate 71 72 Pulse Rate from SpO2 Sensor Respiratory Rate 14 20 Respiratory Effort / Characteristics Respiratory Depth Blood Pressure 135/69 Blood Pressure Mean 102 Pulse Oximetry Oxygen Delivery Method Sepsis Recent Fever Within 48 Hours Sepsis New/Unexplained Change in Mental Status Sepsis Action Taken by Nursing 05/25/24 12:08 05/25/24 12:48 05/25/24 13:15 Temperature Temperature Source Pulse Rate 75 76 72 Pulse Rate from SpO2 Sensor 76 72 Respiratory Rate 12 16 Respiratory Effort / Characteristics Respiratory Depth Blood Pressure Blood Pressure Mean Pulse Oximetry 100 100 Oxygen Delivery Method Sepsis Recent Fever Within 48 Hours Sepsis New/Unexplained Change in Mental Status Sepsis Action Taken by Nursing Laboratory Data 05/25/24 10:35 05/25/24 10:35 Lab Results 05/25/24 05/25/24 05/25/24 Range/Units 10:31 10:35 11:37 WBC 8.56 (4.8-10.8) K/ul RBC 2.08 L (4.20-5.40) M/uL Hgb 5.2 L* (12.0-16.0) g/dl Hct 18.3 L* (37.0-47.0) % MCV 88.0 (80.0-100.0) fL MCH 25.0 (25.0-34.0) pg MCHC 28.4 L (32.0-36.0) g/dL RDW Std Deviation 56.9 H (36.4-46.3) fL RDW Coeff of Donald 17.6 H (11.5-14.5) % Plt Count 297 (130-400) K/uL MPV 10.5 (9.4-12.4) fL Immature Gran % (Auto) 1.1 % Neut % (Auto) 73.8 % Lymph % (Auto) 16.0 % [place] % (Auto) 6.2 % Eos % (Auto) 2.5 % Baso % (Auto) 0.4 % Neut # (Auto) 6.33 (1.40-6.50) K/uL Lymph # (Auto) 1.37 (1.20-3.40) K/uL [place] # (Auto) 0.53 (0.11-0.59) K/uL Eos # (Auto) 0.21 (0.00-0.50) K/uL Baso # (Auto) 0.03 (0.00-0.20) K/uL Immature Gran # (Auto) 0.09 (0.01-0.20) K/uL Absolute Nucleated RBC 0.03 (0.00-0.12) K/uL Nucleated RBC % (auto) 0.4 % Polychromasia 2+ Hypochromasia Present Microcytosis Present PT 10.9 (9.0-12.0) Seconds INR 1.0 (0.9-1.1) Sodium 137 (136-145) mmol/L Potassium 4.3 (3.5-5.1) mmol/L Chloride 102 (98-107) mmol/L Carbon Dioxide 30 (21-32) mmol/L Anion Gap 5 (3-11) BUN 16 (6-23) mg/dl Creatinine 0.80 (0.6-1.2) mg/dl Est Cr Clr Drug Dosing Not Reportable Est GFR ( Amer) 89.7 ml/min Est GFR (Non-Af Amer) 77.4 ml/min BUN/Creatinine Ratio 20.0 (10-20) Glucose 162 H (70-99(Fasting)) mg/dl Calcium 7.8 L (8.6-10.3) mg/dl Total Bilirubin 0.1 L (0.2-1.0) mg/dl AST 10 L (13-39) U/L ALT 7 (7-52) U/L Alkaline Phosphatase 40 (34-104) U/L Troponin I High Sens 9.9 (0-14) pg/ml Total Protein 5.6 L (6.0-8.3) gm/dl Albumin 3.5 (3.4-5.0) gm/dl Globulin 2.1 L (2.5-4.0) gm/dl Albumin/Globulin Ratio 1.7 (0.9-2) Lipase 22 (11-82) U/L Urine Color Yellow Urine Appearance Clear (Clear) Urine pH 7.0 (4.5-7.5) Ur Specific [place] 1.016 (1.000-1.030) Urine Protein Negative (Negative) Urine Glucose (UA) Negative (Negative) Urine Ketones Negative (Negative) Urine Blood Negative (Negative) Urine Nitrite Negative (Negative) Urine Bilirubin Negative (Negative) Urine Urobilinogen Negative (Negative) Ur Leukocyte Esterase Trace H (Negative) Urine WBC (Auto) 0-5 (0-5) /hpf Urine RBC (Auto) 0-2 (0-2) /hpf U Hyaline Cast (Auto) 0-2 (0-2) /lpf U Epithel Cells (Auto) 0-2 (0-2) /hpf Urine Bacteria (Auto) None Seen (None Seen) Blood Type A Positive Antibody Screen NEGATIVE Crossmatch See Detail Administered Medications Miscellaneous (Patient's Height &/Or Weight Needed) 1 each N/A Q2H SUZANNE Stop: 06/24/24 11:59 Last Admin: 05/25/24 12:44 Dose: 1 each Documented By: ARIANE Discontinued Medications Sodium Chloride (Nss) 500 mls @ 999 mls/hr IV .Q31M STA Stop: 05/25/24 10:53 Last Infusion: 05/25/24 11:25 Dose: Infused Documented By: Admin: 05/25/24 10:53 Dose: 999 mls/hr Documented By: ARIANE Pantoprazole Sodium 40 mg/ (Syringe) 10 mls @ 5 mls/min IV NOW ONE Stop: 05/25/24 12:01 Last Admin: 05/25/24 12:43 Dose: 5 mls/min Documented By: ARIANE Ioversol (Optiray 320 100ml) 93 ml IV ONCE ONE Stop: 05/25/24 12:27 Last Admin: 05/25/24 12:27 Dose: 93 ml Documented By: EDK Imaging Data Radiologist's Impression: Abdomen/Pelvis CT 05/25/24 11:46 CT SCAN OF THE ABDOMEN AND PELVIS WITH IV CONTRAST CLINICAL HISTORY: Anemia. Generalized abdominal pain. Hematochezia. COMPARISON STUDY: Abdominal CT dated 12/25/2021. TECHNIQUE: Following the IV administration of 93 cc of Optiray 320, CT scan of the abdomen and pelvis is performed from the lung bases to the proximal femora. Images are reviewed in the axial, sagittal, and coronal planes. IV contrast was administered without complication. A dose lowering technique was utilized adhering to the principles of ALARA. There is streak artifact from metallic spinal hardware. CT DOSE: 1375. mGy.cm FINDINGS: Lung bases: The heart is top normal in size and without pericardial effusion. There is coronary artery atherosclerosis. There are scattered calcified granulomas. The lung bases are otherwise clear noting bibasilar scarring/atelectasis. Liver: The contrast-enhanced liver is normal in size, contour, and attenuation. There is no intrahepatic biliary ductal dilatation. The hepatic veins and portal veins are patent. Gallbladder: Unremarkable. Spleen: Normal in size and attenuation. There are at least 3 splenic hypodensities which measure up to 15 mm. These are pathologically indeterminate and statistically of doubtful significance. These were present on prior examinations. Pancreas: Unremarkable. Adrenal glands: Unremarkable. Kidneys: The contrast enhanced kidneys demonstrate mild cortical atrophy and are without hydronephrosis. The kidneys enhance symmetrically. A 2.3 cm cyst is noted on the left. Abdominal vasculature: There is advanced atherosclerotic calcification and ectasia of the abdominal aorta. Bowel: There is [id number] colonic diverticulosis without CT evidence of acute diverticulitis. No bowel obstruction is seen. The appendix is not identified and reported surgically absent. Peritoneum: There is no intraperitoneal free air or abdominal ascites. There is a fat-containing umbilical hernia. Lymphadenopathy: None. Pelvic viscera: The bladder is normal as visualized. The uterus is surgically absent. No adnexal lesion is seen. Skeletal structures: The skeletal structures are osteopenic. Postsurgical and spondylotic change is noted in the lumbar spine. There is mild scoliosis. No lytic or blastic lesions are seen. IMPRESSION: 1. No acute infectious or inflammatory findings are identified in the abdomen or pelvis. 2. Colonic diverticulosis without CT evidence of acute diverticulitis. 3. Coronary artery atherosclerosis. 4. Additional findings as above. ACT 112: Negative or not required by law. Electronically signed by: Milad Lees M.D. 05/25/2024 1:31 PM Discharge Plan Visit Data Chief Complaint: Referred by Doctor Stated Complaint: HEMOGLOBIN OF 5, REF BY DOC ED Provider: Chin Blancas Discharge Problem: GIB (gastrointestinal bleeding) Patient Disposition: Admitted As Inpatient Discharge Instructions Interventions: ED Discharge Assessment Last Done: 05/25/24 13:35 Forms Stand Alone Forms: Sevar Consult Prescriptions Prescriptions: No Action (DME) Hospital Bed Misc See Rx Instructions .ROUTE .MEDSUPPLY Qty: 1 0RF Rx Instructions: Dx: M19.90, M96.1, M51.9, M48.02, M48.04, J44.9 (DME) blood-glucose meter [OneTouch Verio Meter] Misc See Rx Instructions .ROUTE .MEDSUPPLY Qty: 1 0RF Rx Instructions: As directed (DME) lancets [OneTouch Delica Lancets] 30 gauge misc See Dose Instructions .ROUTE .MEDSUPPLY Qty: 200 4RF Dose Instruction: As directed Rx Instructions: testing four times per day. albuterol sulfate 2.5 mg/0.5 mL solution for nebulization 2.5 mg INHALATION QID PRN (Reason: Wheezing) Qty: 30 5RF mometasone 0.1 % cream 1 applic topical DAILY PRN (Reason: allergic reaction) Qty: 15 3RF Rx Instructions: Apply to affected ear once daily as needed for itching cholecalciferol (vitamin D3) 250 mcg (10,000 unit) tablet 500 mcg PO DAILY cyanocobalamin (vitamin B-12) 500 mcg tablet 1,000 mcg PO DAILY Qty: 60 5RF (DME) blood sugar diagnostic Strip See Dose Instructions .ROUTE .MEDSUPPLY Qty: 100 5RF Dose Instruction: As directed Rx Instructions: testing four times per day. duloxetine [Cymbalta] 60 mg capsule,delayed release(DR/EC) 60 mg PO BID Qty: 60 11RF pravastatin 40 mg tablet 40 mg PO HS Qty: 90 3RF ezetimibe [Zetia] 10 mg tablet 10 mg PO HS Qty: 90 3RF levothyroxine 200 mcg tablet 200 mcg PO QAM Qty: 90 1RF Rx Instructions: please change to 90 day supply trazodone 100 mg tablet 300 mg PO HS 90 Days Qty: 270 2RF silver sulfadiazine [Silvadene] 1 % cream 1 applic topical DAILY PRN (Reason: wound healing) Qty: 50 1RF Patient Comments: finished with this 10/26/23 Rx Instructions: apply a 1.5 mm thickness esomeprazole magnesium [Nexium] 40 mg capsule,delayed release(DR/EC) 40 mg PO BID Qty: 180 1RF levocetirizine [Xyzal] 5 mg tablet 5 mg PO HS Qty: 90 1RF folic acid 1 mg tablet 1 mg PO QAM Qty: 90 3RF gabapentin 800 mg tablet 800 mg PO UD Qty: 105 3RF Rx Instructions: 800 mg PO 1 tablet QAM, 1 tablet QPM, and 1.5 tablet HS; (VERIFIED PAT 11/24/22) sucralfate [Carafate] 1 gram tablet 1 g PO BID PRN (Reason: Acid Reflux) Qty: 60 0RF Eliquis 5 mg tablet 5 mg PO BID Qty: 90 1RF Patient Comments: TO BE STOPPED DAY BEFORE SURGERY PER DR AIKEN , TAKE NONE ON THE / DR PATTERSON IS ALSO AWARE buspirone 10 mg tablet See Rx Instructions .ROUTE .COMPLEX Qty: 405 1RF Rx Instructions: Take 1 tab PO in AM and afternoon, 1.5 tabs PO QHS nitroglycerin [Nitrostat] 0.4 mg tablet, sublingual 0.4 mg Sublingual UD PRN (Reason: Pain) Qty: 25 5RF Patient Comments: HAVEN'T USED IN AGES epinephrine [EpiPen 2-Manny] 0.3 mg/0.3 mL auto-injector 0.3 mg IM Q10M PRN (Reason: anaphylaxis) Qty: 2 1RF Rx Instructions: for 2 doses magnesium oxide 400 mg magnesium tablet 400 mg PO TID Qty: 270 1RF benzonatate 200 mg capsule 200 mg PO BID PRN (Reason: cough) Qty: 30 4RF Ozempic 1 mg/dose (4 mg/3 mL) pen injector 1 mg subcut WK Qty: 3 3RF Patient Comments: takes on wednesdays > last dose 10/19/23 Rx Instructions: WEDNESDAYS montelukast [Singulair] 10 mg tablet 10 mg PO QAM Qty: 90 1RF oxycodone 10 mg tablet 10 mg PO Q8H PRN (Reason: pain, severe) Qty: 90 0RF Hold Instructions: Hold refill Oxycodone. UA Neg despite #90 tabs monthly. oxybutynin chloride 5 mg tablet 5 mg PO BID Qty: 30 2RF fluconazole 150 mg tablet 150 mg PO ONCE 1 Days Qty: 1 0RF hydroxyzine pamoate [Vistaril] 25 mg capsule 25 mg PO TID PRN (Reason: Anxiety) Qty: 60 5RF (DME) Oxygen Home Liters Per Minute See Rx Instructions .ROUTE .MEDSUPPLY Dose Instruction: As directed Rx Instructions: 3LPM via NC @ HS. doxycycline hyclate 100 mg capsule 100 mg PO QPM (DME) CPAP Machine Misc .Route Qty: 1 0RF Rx Instructions: CPAP 10 cm of water with oxygen bleed at 1 L/min, mask fit patient comfort, heated modification, compliance download capabilities, DME: [facility] medical equipment adalimumab 40 mg/0.8 mL syringe kit 40 mg subcut WK Rx Instructions: every tuesday metoprolol succinate 25 mg tablet extended release 24 hr 25 mg PO BID Qty: 180 3RF Hold Instructions: hypotensive betamethasone dipropionate 0.05 % cream 1 applic topical BID PRN (Reason: skin irritation) Qty: 45 0RF clobetasol 0.05 % lotion 1 applic TOP BID PRN (Reason: itching) 14 Days Qty: 59 3RF clobetasol 0.05 % cream 1 applic topical BID PRN (Reason: rash) Qty: 60 1RF Trelegy Ellipta 100-62.5-25 mcg blister with device 1 inh INH QAM Qty: 60 5RF albuterol sulfate 90 mcg/actuation HFA aerosol inhaler 2 puff INHALATION Q6H PRN (Reason: Wheezing) Qty: 18 5RF clotrimazole-betamethasone 1-0.05 % cream 1 applic topical BID Qty: 45 0RF Rx Instructions: STARTED 03/27/24 FOR 14 DAYS. methocarbamol 500 mg tablet 1,000 mg PO QID 30 Days Qty: 240 1RF nystatin 100,000 unit/gram powder 1 applic topical BID Qty: 30 2RF Rx Instructions: STARTED 03/27/24 FOR 14 DAYS. guaifenesin [Mucinex] 1,200 mg Tablet Extended Release 12hr 1,200 mg PO Q12H PRN (Reason: Nasal Congestion) aspirin 81 mg Capsule 81 mg PO QAM clopidogrel [Plavix] 75 mg tablet 75 mg PO QAM Nurtec ODT 75 mg tablet,disintegrating 75 mg PO .COMPLEX PRN (Reason: Migraine Headache) Rx Instructions: 75 mg orally PRN at onset of migraine. 1 in 24 hours.; limit 2-3 days a week Referrals Referrals: Gerda Johnson DO [Primary Care Provider] - Discharge Problem: GIB (gastrointestinal bleeding) Qualifiers: GI bleed type/associated pathology: unspecified gastrointestinal hemorrhage type Qualified Code(s): K92.2 - Gastrointestinal hemorrhage, unspecified
[2024-05-25] MEDS: SODIUM CHLORIDE 0.9% 500 ML IV STA (10:53)
[2024-05-25 11:05] LABS: Hematocrit (blood only) 18.3 % (37.0-47.0); Hemoglobin 5.2 g/dl (12.0-16.0); Mean Corpuscular Hgb Conc 28.4 g/dL (32.0-36.0); Mean Platelet Volume 10.5 fL (9.4-12.4); Nucleated RBC # (auto) 0.03 K/uL (0.00-0.12); Nucleated RBC % (auto) 0.4 %; Platelet Count 297 K/uL (130-400); RDW Coefficient of Variation 17.6 % (11.5-14.5); RDW Standard Deviation 56.9 fL (36.4-46.3); Red Blood Count 2.08 M/uL (4.20-5.40); White Blood Count 8.56 K/ul (4.8-10.8)
[2024-05-25 11:13] LABS: Alanine Aminotransferase 7 U/L (7-52); Albumin Globulin Ratio 1.7 (0.9-2); Albumin Level 3.5 gm/dl (3.4-5.0); Alkaline Phosphatase 40 U/L (34-104); Anion Gap 5 (3-11); Aspartate Aminotransferase 10 U/L (13-39); Bilirubin,Total 0.1 mg/dl (0.2-1.0); Blood Urea Nitrogen 16 mg/dl (6-23); Calcium 7.8 mg/dl (8.6-10.3); Carbon Dioxide 30 mmol/L (21-32); Chloride 102 mmol/L (98-107); Est GFR (African American) 89.7 ml/min; Est GFR (Non-African American) 77.4 ml/min; Globulin 2.1 gm/dl (2.5-4.0); Glucose 162 mg/dl (70-99(Fasting)); Lipase 22 U/L (11-82); Potassium 4.3 mmol/L (3.5-5.1); Sodium 137 mmol/L (136-145); Total Protein 5.6 gm/dl (6.0-8.3)
[2024-05-25] MEDS ORDERED: SODIUM CHLORIDE 0.9% 250 ML IV PRN ×2 (11:16→21:47)
[2024-05-25 11:18] LABS: Troponin I High Sensitivity 9.9 pg/ml (0-14)
[2024-05-25 11:20] LABS: Prothrombin Time 10.9 Seconds (9.0-12.0)
[2024-05-25 11:32] LABS: Basophils # (auto) 0.03 K/uL (0.00-0.20); Basophils % (auto) 0.4 %; Eosinophils # (auto) 0.21 K/uL (0.00-0.50); Eosinophils % (auto) 2.5 %; Hypochromasia Present; Immature Granulocytes # (auto) 0.09 K/uL (0.01-0.20); Immature Granulocytes % (auto) 1.1 %; Lymphocytes # (auto) 1.37 K/uL (1.20-3.40); Microcytosis Present; Monocytes # (auto) 0.53 K/uL (0.11-0.59); Monocytes % (auto) 6.2 %; Neutrophils # (auto) 6.33 K/uL (1.40-6.50); Neutrophils % (auto) 73.8 %; Polychromasia 2+
--- NOTE | 2024-05-25 11:36 | History & Physical Report ---
Date of Service May 25, 2024 Assessment & Plan (1) Symptomatic anemia: Plan: Admit to the PCU on telemetry and pulse oximetry Currently hemodynamically stable, stable on room air, and nontoxic-appearing Presented to the ED at the recommendation of her security developer due to outpatient CBC showed hemoglobin of 5, confirmed on arrival with hemoglobin of 5.2 (down from 11 as of 05/02/2024) Patient had a recent admission in March of this year for anemia thought to be due to staple GI bleed, and remained stable and her Eliquis/aspirin/Plavix have been held and after receiving 2 units packed red blood cells Is scheduled to see gastroenterology at the end of this month for capsule endoscopy, patient may require endoscopy/colonoscopy during this admission with her ongoing bleeding Patient did report abdominal pain and bright red blood along with clots with her recent bowel movements, ED confirmed she is heme positive today Has been consented for blood and ordered initial 2 units packed red blood cells by the ED Will obtain CT of the abdomen pelvis with IV contrast on admission for further evaluation Hold Eliquis, aspirin, and Plavix for now Will add twice daily IV pantoprazole due to her symptoms of nausea history of previous gastric ulcers Gastroenterology has been consulted, will keep n.p.o. except meds for now Will monitor CBC every 6 hours moving forward after her 2 units of packed red blood cells are complete Bilateral SCDs for DVT prophylaxis AM CMP, mag, PT/INR (2) Bright red blood per rectum: Plan: See symptomatic anemia (3) Bilateral carotid artery stenosis: Plan: Patient had previously undergone bilateral carotid artery stent placement Dr. Aiken 2022, had recent revascularization of stenosed left carotid artery stent last month with Dr. Aiken Has been on aspirin/Plavix in addition to her Eliquis Did have her a.m. dose of aspirin/Plavix today Will plan to hold aspirin and Plavix for now until she is deemed stable from her GI bleed Once stable would restart aspirin/Plavix WINIFRED (4) Severe sleep apnea: Plan: Patient uses 5 L NC HS, does not use CPAP (5) AF (paroxysmal atrial fibrillation): Plan: Currently in normal sinus rhythm Holding Eliquis with GI bleed and symptomatic anemia Continue metoprolol she is hemodynamically stable (6) COPD (chronic obstructive pulmonary disease): Plan: Currently stable on room air with mild expiratory wheezing States that she is currently vaping and not smoking cigarettes, still recommended she quit vaping as well States that she uses 3 L as needed O2 during the day As needed O2 to keep SpO2 between 89-92%, incentive spirometry Will continue for home breathing treatments (7) Type 2 diabetes mellitus: Plan: Hold semaglutide Has only required CF of 50 and CR 15 during previous admissions, will continue this for now every 6 hours while NPO Adjust regimen as needed (8) Chronic antibiotic suppression: Plan: Continue doxycycline Plan The patient was discussed with Dr. Escobar at the time of admission History of Present Illness Chief Complaint: Anemia on outpatient labs Primary Care Provider: Gerda Johnson DO Delgadillo is a 63-year-old female with a past medical history significant for paroxysmal atrial fibrillation (on Eliquis), bilateral carotid artery stenosis status post bilateral carotid artery stent placement with Dr. Aiken in 2022 w ith revascularization of left transcarotid stent on 05/02/2024 (on aspirin and Plavix) hypertension, paroxysmal SVT, nonobstructive coronary artery disease, DM type II, history of MSSA infection of previous spinal surgery wound (on chronic doxycycline), severe sleep apnea, hypothyroidism, COPD, and iron deficiency anemia who presented to the [facility] ED on 05/25/2024 at the recommendation of her security developer after a outpatient labs showed hemoglobin of 5.4. Patient was last admitted to [facility] in March of this past year for anemia with hemoglobin of 6.3. She received 2 units packed red blood cells while her Eliquis, aspirin, and Plavix were held. She was evaluated by gastroenterology who recommended outpatient capsule endoscopy due to patient remaining stable. She was restarted on her Eliquis, aspirin, and Plavix at the time of discharge. Patient remained stable while in the ED. Labs were significant for hemoglobin of 5.2, hematocrit of 18.3, MCHC of 28. Patient reported to the ED staff that she had been experiencing bright red blood per the rectum but thought this was due to hemorrhoids. Prior to admission the patient was consented for blood and ordered an initial 2 units of PRBCs. Patient was sitting in bed in no acute distress at time of exam, she is significantly pale and mildly short of breath after walking from the bathroom to her bed. States that she noticed bright red blood in her stool starting 05/24/2024 along with few clots. Has been experiencing mild left sided abdominal pain since this occurred on 05/24/2024. Confirms that he had been taking her Eliquis, aspirin, and Plavix as prescribed since her left carotid revascularization. She did have her a.m. doses of aspirin/Plavix but did not take Eliquis today has been experiencing mild nausea but no recent vomiting. No recent fever, chills, chest pain, cough, dysuria/hematuria, lower extremity swelling, and recent trauma. Confirm she is a full code and would want her to make medical decisions for her if she cannot make them herself. Please refer to Dr. Escobar's attestation for any changes to the treatment plan Allergies Allergy/AdvReac Type Severity Reaction Status Date / Time bee pollen Allergy Severe Anaphylaxis Verified 05/02/24 10:34 fentanyl Allergy Severe Severe Verified 05/02/24 10:34 sedation, resp depression (only with patches) Penicillins Allergy Severe Anaphylaxis Verified 05/02/24 10:34 pregabalin Allergy Severe Shortness Verified 05/02/24 10:34 of breath honey Allergy Intermediate Hives Verified 05/02/24 10:34 adhesive Allergy Mild Blister Verified 05/02/24 10:34 (wipe some plastic tape) oxcarbazepine AdvReac Severe Severe Verified 05/02/24 10:34 [From Trileptal] stomach issues sulfamethoxazole AdvReac Severe Severe Verified 05/02/24 10:34 nausea trimethoprim AdvReac Severe Severe Verified 05/02/24 10:34 nausea buprenorphine [From Suboxone] AdvReac Intermediate Vomiting, Verified 05/02/24 10:34 skin problems clindamycin AdvReac Intermediate Diarrhea Verified 05/02/24 10:34 fluticasone AdvReac Intermediate Severe Verified 05/02/24 10:34 thrush ketorolac AdvReac Intermediate Migraine Verified 05/02/24 10:34 levofloxacin [From Levaquin] AdvReac Intermediate IBS ("can Verified 05/02/24 10:34 only tolerate for 5 days") naloxone [From Suboxone] AdvReac Intermediate Severe Verified 05/02/24 10:34 nausea, SKIN PROBLEMS ondansetron [From Zofran] AdvReac Intermediate Migraine Verified 05/02/24 10:34 saccharin [From Sweeta] AdvReac Intermediate Severe Verified 05/02/24 10:34 vomiting salmeterol AdvReac Intermediate Severe Verified 05/02/24 10:34 thrush cephalexin AdvReac Mild Nausea Verified 05/02/24 10:34 Home Medications Medication Instructions Recorded Confirmed Type Hospital Bed Homecare (Hospital #1 ea 11/14/19 04/23/24 Rx Bed) [facility]23[facility] Rx Verio Meter) doxycycline hyclate 100 mg capsule 100 mg PO QPM 06/17/21 05/25/24 [facility]19/21 04/23/24 Rx Lancets) albuterol sulfate 2.5 mg/0.5 mL 2.5 mg (0.5 mL) inhalation QID PRN 07/13/21 05/25/24 Rx solution for nebulization Wheezing #30 ea guaifenesin 1,200 mg tablet, 1,200 mg PO Q12H PRN Nasal 11/11/21 05/25/24 History extended release 12 hr (Mucinex) Congestion CPAP Machine #1 ea 08/02/22 04/23/24 Rx mometasone 0.1 % topical cream 1 applic topical DAILY PRN 10/22/22 05/25/24 Rx allergic reaction #15 grams aspirin 81 mg capsule 81 mg PO QAM 12/01/22 05/25/24 History cholecalciferol (vitamin D3) 250 500 mcg PO DAILY 01/24/23 05/25/24 History mcg (10,000 unit) tablet cyanocobalamin (vitamin B-12) 500 1,000 mcg (2 x 500 mcg) PO DAILY 03/15/23 05/25/24 Rx mcg tablet #60 tabs blood sugar diagnostic #100 ea 05/12/23 04/23/24 Rx Oxygen Home 05/17/23 04/23/24 History adalimumab 40 mg/0.8 mL 40 mg subcut WK 05/17/23 05/25/24 History subcutaneous syringe kit betamethasone dipropionate 0.05 % 1 applic topical BID PRN skin 05/25/23 05/25/24 Rx topical cream irritation #45 grams duloxetine 60 mg capsule,delayed 60 mg PO BID #60 caps 07/01/23 05/25/24 Rx release (Cymbalta) metoprolol succinate 25 mg 25 mg PO BID #180 tabs 08/19/23 05/25/24 Rx tablet,extended release 24 hr clopidogrel 75 mg tablet (Plavix) 75 mg PO QAM 10/26/23 05/25/24 History rimegepant 75 mg disintegrating 75 mg PO .COMPLEX PRN Migraine 10/26/23 05/25/24 History tablet (Nurtec ODT) Headache albuterol sulfate 90 mcg/actuation 2 puff inhalation Q6H PRN Wheezing 11/22/23 05/25/24 Rx aerosol inhaler #18 grams clobetasol 0.05 % lotion 1 applic topical BID PRN itching 2 11/22/23 05/25/24 Rx weeks #59 mL clobetasol 0.05 % topical cream 1 applic topical BID PRN rash #60 11/22/23 05/25/24 Rx grams fluticasone fur. 100 mcg-umeclid 1 inh inhalation QAM #60 ea 11/22/23 05/25/24 Rx 62.5 mcg-vilant 25 mcg inhalat.powder (Trelegy Ellipta) ezetimibe 10 mg tablet (Zetia) 10 mg PO HS #90 tabs 12/09/23 05/25/24 Rx pravastatin 40 mg tablet 40 mg PO HS #90 tabs 12/09/23 05/25/24 Rx levothyroxine 200 mcg tablet 200 mcg PO QAM #90 tabs 01/09/24 05/25/24 Rx trazodone 100 mg tablet 300 mg (3 x 100 mg) PO HS 90 days 01/12/24 05/25/24 Rx #270 tabs esomeprazole magnesium 40 mg 40 mg PO BID #180 caps 01/26/24 05/25/24 Rx capsule,delayed release (Nexium) folic acid 1 mg tablet 1 mg PO QAM #90 tabs 01/26/24 05/25/24 Rx levocetirizine 5 mg tablet (Xyzal) 5 mg PO HS #90 tabs 01/26/24 05/25/24 Rx silver sulfadiazine 1 % topical 1 applic topical DAILY PRN wound 01/26/24 05/25/24 Rx cream (Silvadene) healing #50 grams apixaban 5 mg tablet (Eliquis) 5 mg PO BID #90 tabs 02/01/24 05/25/24 Rx buspirone 10 mg tablet See Rx Instructions .Route 02/01/24 05/25/24 Rx .COMPLEX #405 tabs gabapentin 800 mg tablet 800 mg PO UD #105 tabs 02/01/24 05/25/24 Rx sucralfate 1 gram tablet (Carafate) 1 g PO BID PRN Acid Reflux #60 tabs 02/01/24 05/25/24 Rx epinephrine 0.3 mg/0.3 mL 0.3 mg (0.3 mL) IM Q10M PRN 02/10/24 05/25/24 Rx injection, auto-injector (EpiPen anaphylaxis #2 ea 2-Manny) nitroglycerin 0.4 mg sublingual 0.4 mg sublingual UD PRN Pain #25 02/10/24 05/25/24 Rx tablet (Nitrostat) tabs magnesium oxide 400 mg PO TID #270 tabs 02/15/24 05/25/24 Rx benzonatate 200 mg capsule 200 mg PO BID PRN cough #30 caps 03/19/24 05/25/24 Rx methocarbamol 500 mg tablet 1,000 mg (2 x 500 mg) PO QID 30 03/27/24 05/25/24 Rx days #240 tabs semaglutide 1 mg/dose (4 mg/3 mL) 1 mg (0.75 mL) subcut WK #3 mL 04/09/24 05/25/24 Rx subcutaneous pen injector (Ozempic) montelukast 10 mg tablet 10 mg PO QAM #90 tabs 05/07/24 05/25/24 Rx (Singulair) oxybutynin chloride 5 mg tablet 5 mg PO BID #30 tabs 05/08/24 05/25/24 Rx oxycodone 10 mg tablet 10 mg PO Q8H PRN pain, severe #90 05/08/24 05/25/24 Rx tabs hydroxyzine pamoate 25 mg capsule 25 mg PO TID PRN Anxiety #60 caps 05/15/24 05/25/24 Rx (Vistaril) Past Med/Surg History Problem List (Updated 05/25/24 @ 16:57 by Maksim Alonzo MD) GIB (gastrointestinal bleeding) (Acute) Bright red blood per rectum Iron deficiency Anemia Insomnia Migraines History of left common carotid artery stent placement (01/20/23) Stenosis of left internal carotid artery History of TIA (transient ischemic attack) Bilateral carotid artery stenosis Morbid obesity BMI 43.2 Chronic hyponatremia Incontinence Severe sleep apnea 3L oxygen via N/C- (WAITING ON CPAP DEVICE) Follows with pulm Ulnar neuropathy at elbow of left upper extremity Cervical radiculopathy Esophageal dysphagia Ataxia Chronic antibiotic suppression Subjective memory complaints Diabetic peripheral neuropathy Neurogenic claudication due to lumbar spinal stenosis Anemia Chronic anticoagulation (Acute) " CLOTTING PROBLEM' x 5 YRS F/U DR PATTERSON Lumbar spondylosis Chronic low back pain Gastritis Hypomagnesemia (Acute) Chronic diarrhea Anxiety AF (paroxysmal atrial fibrillation) Takes Eliquis, follows with Dr. Plaza, no pacer NO HX CARDIOVERSION Thoracic spinal stenosis Dysfunction of right eustachian tube Dermatitis of both ear canals Obesity hypoventilation syndrome Degenerative joint disease of shoulder BILATERAL Hypothyroidism (acquired) S/p thyroidectomy 2015 (final pathology negative for malignancy) Psoriatic arthritis No meds at this time- follows with rheum Sensorineural hearing loss (SNHL) of both ears (Chronic) Hypertension GERD (gastroesophageal reflux disease) Degenerative cervical spinal stenosis (Chronic) COPD (chronic obstructive pulmonary disease) rare res inh use per pt > more fall season Chronic interstitial cystitis Allergic rhinitis Type 2 diabetes mellitus Pulsatile tinnitus (Chronic) Lumbar disc disease (Chronic) Failed back syndrome (Chronic) Diabetic neuropathy Depression Coronary artery disease Minor nonobstructive CAD per September 2012 cath per cardio records No hx stents or angioplasty Osteoarthritis (Chronic) Hyperlipidemia controlled per pt On home oxygen therapy (Chronic) 5L/MIN NC HS Medical History (Updated 05/25/24 @ 16:57 by Maksim Alonzo MD) Thoracic spinal stenosis Type 2 diabetes mellitus Severe sleep apnea O2 2-5 L at night, no cpap, follows pulm Dr. Dr. Chan Neurogenic claudication Obesity hypoventilation syndrome On home oxygen therapy 2-5 l nc at night Lumbar disc disease Hypothyroidism (acquired) Hypomagnesemia History of left common carotid artery stent placement (01/20/23) Hx of gastritis Failed back syndrome CAD (coronary artery disease) Chronic low back pain Chronic interstitial cystitis Chronic hyponatremia Chronic anticoagulation Chronic antibiotic suppression Cervical radiculopathy limited rom Ataxia Anxiety Allergic rhinitis Paroxysmal atrial fibrillation IBS (irritable bowel syndrome) DJD of both shoulders "bone on bone" unable to have surgery due to blood thinners, has chronic pain both arms Chronic diarrhea Iron deficiency Last iron infusion on 04/20/24 at [facility] Anemia (03/31/24) recently admitted to [facility], has had 6 units PRBC's recently. Will have 1 unit PRBC at [facility] on 04/27/[address] Dickson History of dysphagia History of esophageal dilatation (10/31/23) Incontinence sees Dr. Bellamy Insomnia Hx of migraines rare Osteoarthritis Rheumatoid arthritis follows with pancho Gonzales at [facility] Psoriatic arthritis Depression Hyperlipidemia Hypertension GERD (gastroesophageal reflux disease) Diabetic neuropathy COPD (chronic obstructive pulmonary disease) chronic cough, has been using inhalers frequently, follows with Dr. Chan, O2 3-5 L nc at bedtime Clotting disorder per Dr. Dickson, per pt, unsure what type TIA (transient ischemic attack) (2013) 2013 > no residual effects - follows with dr. velázquez History of seizures Age 3 (in setting of fever/measles) > nothing since Meralgia paresthetica of right side Follows with neuro - Dr. Velázquez Mixed hearing loss of right ear No hearing aids History of [place] (myocardial infarction) (2009) 2009 > nothing since > no stents Personal history of pulmonary embolism (2013) 2013 > treated with blood thinners - eliquis Personal history of skin cancer s/p excision from RLE Carotid artery narrowing Hx of thyroid cancer (2015) s/p thyroidectomy + XRT (one round) Hx of deep venous thrombosis 2013 > from Thrombophlebitis follows with Dr. Dickson Surgical History History of esophagogastroduodenoscopy (EGD) History of right common carotid artery stent placement (12/01/22) Dr Attila Carrington History of tonsillectomy H/O colonoscopy with polypectomy History of cystoscopy Multiple History of incision and drainage (08/11/20) I&D lumbar spine incision w/ placement of abx beads and wound vac - NO CURRENT WOUND VAC/ANTIBIOTIC DAILY (DOXYCYCLINE chronic) H/O cataract extraction R/L S/P dilatation and curettage S/P section x2 History of thyroidectomy, total (2015) History of knee replacement R/L History of placement of ear tubes R/L History of cervical spinal surgery x2; limited rom-right is ok to shoulder, left is better than right History of breast biopsy Left (benign) History of appendectomy History of back surgery x 6 total lumbar (including fusion) History of cardiac cath x7 (09/2012 > no stents)- all at [place] except for 1 at [facility] (2009, [place])- Follows with [facility] (q 6 months last seen January 2024) Family History Mother Diabetes Family history of diabetes mellitus Cardiac disorder Heart trouble Myocardial infarction Renal failure Family history of reaction to anesthesia Hypertension Stroke Gallbladder disease Grandfather Family hx of colon cancer Myocardial infarction Father Colon cancer Cardiac disorder Kidney stones Heart trouble Myocardial infarction Degenerative disc disease Lung disease Hypertension Stroke Aunt Colon cancer Diabetes Grandmother (Maternal) Degenerative disc disease Cancer Sister Diabetes Family history of diabetes mellitus Breast cancer Cancer Hypertension Gallbladder disease Family/Other Kidney disease Brother Multiple sclerosis Uncle Myocardial infarction Grandfather (Maternal) Family history of diabetes mellitus Aunt Diabetes Aunt Diabetes Aunt Diabetes Aunt Diabetes Aunt Diabetes Other Dementia Denies family history of Ovarian cancer Prostate cancer Adverse effect of anesthesia Bleeding disorder Social History Smoking Status: Current every day smoker Tobacco Type: E-cigarettes / Vaping Age Started Using Tobacco: 12; packs per day: 0.5; Cigarettes Per Day: Vapes daily (advised); Second Hand Exposure: No; Do You Dip or Chew Tobacco: No; Hx Alcohol Use: No Hx Substance Use: No Preferred Language: Finnish Communication Ability: Effective Visual Impairment: Limited Hearing Ability: Hard of Hearing Director Asset Required: No Beliefs That Will Affect Care: None marital status: Current Living Situation: Family Current Living Situation Comment: AND SON current occupational status: unemployed How many Children do You have: 2 Other Information That Helps Us Care for You: No Feels Safe at Home: Yes Safety Concerns: Feels Safe At This Time Childhood Exposure to Second-Hand Smoke: Yes (father smoked) Diet: regular Diet Comment: regular caffeine: Yes during the past year weight has: increased > 10 lbs Dental Care, Regularly: Yes Physical Activity Frequency: Does not Exercise Physical Activity Frequency Comment: LIMITED BY PHYSICAL CONDITION Seatbelt Use: always Sunscreen Use: Yes Assistive Devices: Cane, Denture - Upper, Denture - Lower, Glasses and Oxygen - at Night Physical Exam Physical Exam: Physical Exam: General: In no acute distress, stated age, very pale complexion, nontoxic HEENT: Normocephalic, atraumatic, no scleral icterus, pupils around round, symmetrical, and reactive to light, moist mucus membranes, trachea midline, no thyromegaly Chest/Pulm: No respiratory distress, symmetrical chest expansion, scattered expiratory wheezing Cardiac: RRR, no murmurs noted Abdomen: Negative for ascites and bruising, normoactive bowel sounds, soft, mildly tender in the left upper and lower quadrants without rebound tenderness Musculoskeletal: Symmetrical and without signs of acute trauma, upper and lower extremities with full ROM, no atrophy, spasticity, or flaccidity Extremities: Radial, dorsalis pedis, and posterior tibial pulses are intact and symmetrical, no edema noted in the BL LE's Skin: Pale, dry, no rashes , lesions, or scars noted Neuro: Alert and oriented to person, place, month, year, and president, no focal defects, no tremors noted Psych: No acute distress, calm and cooperative during the exam Results & Data Results & Data Vital Signs (Past 12 Hours) Vital Signs Temp Pulse Resp BP Pulse Ox O2 Del Method 05/25/24 10:06 36.6 C 76 20 126/56 L 97 Room Air Laboratory Results Abnormal lab results 05/25/24 05/25/24 05/25/24 Range/Units 10:31 10:35 11:37 RBC 2.08 L (4.20-5.40) M/uL Hgb 5.2 L* (12.0-16.0) g/dl Hct 18.3 L* (37.0-47.0) % MCHC 28.4 L (32.0-36.0) g/dL RDW Std Deviation 56.9 H (36.4-46.3) fL RDW Coeff of Donald 17.6 H (11.5-14.5) % Glucose 162 H (70-99(Fasting)) mg/dl Calcium 7.8 L (8.6-10.3) mg/dl Total Bilirubin 0.1 L (0.2-1.0) mg/dl AST 10 L (13-39) U/L Total Protein 5.6 L (6.0-8.3) gm/dl Globulin 2.1 L (2.5-4.0) gm/dl Ur Leukocyte Esterase Trace H (Negative) Crossmatch See Detail ECG Additional Comments: Normal sinus rhythm no acute ST segment or T wave changes compared to previous Code Status & VTE Plan Code Status Full code VTE Prophylaxis Plan VTE Prophylaxis will be ordered: Yes Supervising Physician Co-Signing Physician Notes I personally saw and examined the patient. I verified all cooper points and agree with Tiago Corbett PA-C with the following exceptions and/or additions: 63 year old female presents to the ER with outpatient labs showing hemoglobin 5.4. Recent revascularization of left transcarotid stent on 05/02/2024 (on aspirin and Plavix). Recent admission in March for iron deficiency anemia requiring 3 units of blood with DAPT and Eliquis restarted on discharge. Reports shortness of breath and fatigue with her low hemoglobin. O/E HS RRR, no murmurs, Chest CTAB, Abdo mild LUQ pain, no guarding or rebound tenderness A/P Symptomatic anemia, presumed GI bleed - Pantoprazole 40mg IV BID, NPO, consult GI, 2 units blood ordered, Transfuse < 7 overnight. Hold all aspirin, clopidogr el and Eliquis overnight but if stable consider restarting aspirin tomorrow. PG Care Time/CCT Total # of Minutes Spent Total Time Spent with Patient: Total time spent is greater than 50% in coordination of care (as documented) at patient's floor/unit and/or counseling patient: C[place] [address] INT INP/OBS CARE 3/75MIN Patient Type Established Medical Decision Making High Complexity Diagnoses Symptomatic anemia D64.9 Bright red blood per rectum K62.5 Bilateral carotid artery stenosis I65.23 Severe sleep apnea G47.30 AF (paroxysmal atrial fibrillation) I48.0 COPD (chronic obstructive pulmonary disease) J44.9 Type 2 diabetes mellitus E11.9 Chronic antibiotic suppression Z79.2
[2024-05-25 11:57] LABS: Appearance Urine Clear (Clear); Bacteria Urine Automated None Seen (None Seen); Bilirubin Urine Negative (Negative); Blood Urine Negative (Negative); Cast Urine Automated 0-2 /lpf (0-2); Color Urine Yellow; Epithelial Cell Urine Auto 0-2 /hpf (0-2); Glucose Urine UA Negative (Negative); Ketones Urine Negative (Negative); Leukocyte Esterase Urine Trace (Negative); Nitrite Urine Negative (Negative); Protein Urine Negative (Negative); RBC Urine Automated 0-2 /hpf (0-2); Specific Gravity Urine 1.016 (1.000-1.030); Urobilinogen Urine Negative (Negative); WBC Urine Automated 0-5 /hpf (0-5)
[2024-05-25] MEDS ORDERED: CARBOHYDRATES FOR HYPOGLYCEMIA PO PRN (12:05)
[2024-05-25] MEDS ORDERED: GLUCOSE 40% GEL 15 GM TUBE PO PRN (12:05)
[2024-05-25] MEDS ORDERED: GLUCOSE 10 TAB/TUBE PO PRN (12:05)
[2024-05-25] MEDS ORDERED: GLUCAGON FOR INJ 1 MG VIAL SQ PRN (12:05)
[2024-05-25] MEDS ORDERED: DEXTROSE 50% 50 ML SYRINGE IV PRN (12:05)
[2024-05-25] MEDS: OPTIRAY 320 100ml IV ONE (12:27)
[2024-05-25] MEDS: PANTOprazole 40 MG in SYRINGE 0 ML IV ONE (12:43)
[2024-05-25] MEDS: Patient's HEIGHT &/or WEIGHT Needed SCH (12:44)
[2024-05-25] MEDS ORDERED: ACETAMINOPHEN 1,000 MG/100 ML VIAL IV PRN (12:52)
--- NOTE | 2024-05-25 13:32 | CT Scan Report ---
CT SCAN OF THE ABDOMEN AND PELVIS WITH IV CONTRAST CLINICAL HISTORY: Anemia. Generalized abdominal pain. Hematochezia. COMPARISON STUDY: Abdominal CT dated 12/25/2021. TECHNIQUE: Following the IV administration of 93 cc of Optiray 320, CT scan of the abdomen and pelvi s is performed from the lung bases to the proximal femora. Images are reviewed in the axial, sagittal , and coronal planes. IV contrast was administered without complication. A dose lowering technique wa s utilized adhering to the principles of ALARA. There is streak artifact from metallic spinal hardwar e. CT DOSE: 1375. mGy.cm FINDINGS: Lung bases: The heart is top normal in size and without pericardial effusion. There is coronary arter y atherosclerosis. There are scattered calcified granulomas. The lung bases are otherwise clear notin g bibasilar scarring/atelectasis. Liver: The contrast-enhanced liver is normal in size, contour, and attenuation. There is no intrahepa tic biliary ductal dilatation. The hepatic veins and portal veins are patent. Gallbladder: Unremarkable. Spleen: Normal in size and attenuation. There are at least 3 splenic hypodensities which measure up t o 15 mm. These are pathologically indeterminate and statistically of doubtful significance. These wer e present on prior examinations. Pancreas: Unremarkable. Adrenal glands: Unremarkable. Kidneys: The contrast enhanced kidneys demonstrate mild cortical atrophy and are without hydronephros is. The kidneys enhance symmetrically. A 2.3 cm cyst is noted on the left. Abdominal vasculature: There is advanced atherosclerotic calcification and ectasia of the abdominal a marge. Bowel: There is oinq-iu-ktbfyjos colonic diverticulosis without CT evidence of acute diverticulitis. No bowel obstruction is seen. The appendix is not identified and reported surgically absent. Peritoneum: There is no intraperitoneal free air or abdominal ascites. There is a fat-containing umbi lical hernia. Lymphadenopathy: None. Pelvic viscera: The bladder is normal as visualized. The uterus is surgically absent. No adnexal lesi on is seen. Skeletal structures: The skeletal structures are osteopenic. Postsurgical and spondylotic change is n oted in the lumbar spine. There is mild scoliosis. No lytic or blastic lesions are seen. IMPRESSION: 1. No acute infectious or inflammatory findings are identified in the abdomen or pelvis. 2. Colonic diverticulosis without CT evidence of acute diverticulitis. 3. Coronary artery atherosclerosis. 4. Additional findings as above. ACT 112: Negative or not required by law. Electronically signed by: Milad Lees M.D. 05/25/2024 1:31 PM
[2024-05-25] MEDS ORDERED: guaiFENesin 600 MG TABCR PO PRN (14:10)
--- NOTE | 2024-05-25 14:23 | Gastrointestinal Consultation ---
Date of Consultation May 25, 2024 Assessment & Plan (1) GIB (gastrointestinal bleeding): (2) Bright red blood per rectum: (3) Anemia: Plan Patient admitted with worsening anemia, currently being set up to have a transfusion. She did note some mild brbpr yesterday but denies any significant blood loss. she had EGD and colonoscopy done earlier this year that were unremarkable and is set up to have a capsule endoscopy done later this month through [facility]. - follow hgb/hct. transfuse as needed. - continue with protonix 40mg IV bid. - she may need to have updated colonoscopy done on this admission given her complaints of brbpr and LUQ pain. I will discuss further with Dr. Alonzo. Further recommendations to follow, see MD raza. Supervising Physician Co-Signing Physician Notes I examined the patient and reviewed patient's chart , laboratory data and imaging studies. I agree with with assessment and plan of care as suggested by advanced practice provider. Chronic iron deficiency anemia. Recent worsening of anemia, requires periodic blood transfusions. The patient is on Eliquis and Plavix. She has a history of colonic polyps, the most recent colonoscopy was in October 2023. The most recent EGD was also in October 2023. Celiac disease panel was negative in 2019. Awaiting capsule endoscopy. Will reassess the need for anticoagulation and antiplatelet therapy. Replenish iron stores with intravenous iron infusions. History of Present Illness Reason for Consultation: hgb 5, GIB, on eliquis/ASA/plavix. Requesting Physician: Tiago DAVIS Attending Physician: Frank Escobar MD History of Present Illness Patient is a 63 year old female with a past medical history significant for paroxysmal atrial fibrillation (on Eliquis), bilateral carotid artery stenosis status post bilateral carotid artery stent placement with Dr. Aiken in 2022 with revascularization of left transcarotid stent on 05/02/2024 (on aspirin and Plavix) hypertension, paroxysmal SVT, nonobstructive coronary artery disease, DM type II, severe sleep apnea, hypothyroidism, COPD, and iron deficiency anemia who presented [facility] ED on 05/25/2024 at the recommendation of her director apparel after a outpatient labs showed hemoglobin around 5. Her hgb when she arrived was 5.2. she had a hgb of 111 on 04/22/24. She tells me that she has not noticed any melena. She did have some mild bright red blood per rectum yesterday, but she tells me nothing significant. She does note that earlier today she had some LUQ pain that was short lived. no pain now. she had CT in the ED that was unremarkable (see below). She has had ongoing issues with anemia and had EGD and colonoscopy earlier this year that was unremarkable. [facility] done. no nsaid use. Patient denies any current issues with nausea, vomiting, dysphagia, heartburn, unintentional weight loss, change in bowels, or melena. Colonoscopy 10/31/23 fair prep, colon polyp, diverticulosis, and internal hemorrhoids. EGD 10/31/23 mildly severe reflux esophagitis. Allergies Allergy/AdvReac Type Severity Reaction Status Date / Time bee pollen Allergy Severe Anaphylaxis Verified 05/02/24 10:34 fentanyl Allergy Severe Severe Verified 05/02/24 10:34 sedation, resp depression (only with patches) Penicillins Allergy Severe Anaphylaxis Verified 05/02/24 10:34 pregabalin Allergy Severe Shortness Verified 05/02/24 10:34 of breath honey Allergy Intermediate Hives Verified 05/02/24 10:34 adhesive Allergy Mild Blister Verified 05/02/24 10:34 (wipe some plastic tape) oxcarbazepine AdvReac Severe Severe Verified 05/02/24 10:34 [From Trileptal] stomach issues sulfamethoxazole AdvReac Severe Severe Verified 05/02/24 10:34 nausea trimethoprim AdvReac Severe Severe Verified 05/02/24 10:34 nausea buprenorphine [From Suboxone] AdvReac Intermediate Vomiting, Verified 05/02/24 10:34 skin problems clindamycin AdvReac Intermediate Diarrhea Verified 05/02/24 10:34 fluticasone AdvReac Intermediate Severe Verified 05/02/24 10:34 thrush ketorolac AdvReac Intermediate Migraine Verified 05/02/24 10:34 levofloxacin [From Levaquin] AdvReac Intermediate IBS ("can Verified 05/02/24 10:34 only tolerate for 5 days") naloxone [From Suboxone] AdvReac Intermediate Severe Verified 05/02/24 10:34 nausea, SKIN PROBLEMS ondansetron [From Zofran] AdvReac Intermediate Migraine Verified 05/02/24 10:34 saccharin [From Sweeta] AdvReac Intermediate Severe Verified 05/02/24 10:34 vomiting salmeterol AdvReac Intermediate Severe Verified 05/02/24 10:34 thrush cephalexin AdvReac Mild Nausea Verified 05/02/24 10:34 Home Medications Medication Instructions Recorded Confirmed Type Hospital Bed Homecare (Hospital #1 ea 11/14/19 04/23/24 Rx Bed) blood-glucose meter (OneTouch #1 ea 09/18/20 04/23/24 Rx Verio Meter) doxycycline hyclate 100 mg capsule 100 mg PO QPM 06/17/21 05/25/24 History lancets 30 gauge (OneTouch Delica #200 ea 06/19/21 04/23/24 Rx Lancets) albuterol sulfate 2.5 mg/0.5 mL 2.5 mg (0.5 mL) inhalation QID PRN 07/13/21 05/25/24 Rx solution for nebulization Wheezing #30 ea guaifenesin 1,200 mg tablet, 1,200 mg PO Q12H PRN Nasal 11/11/21 05/25/24 History extended release 12 hr (Mucinex) Congestion CPAP Machine #1 ea 08/02/22 04/23/24 Rx mometasone 0.1 % topical cream 1 applic topical DAILY PRN 10/22/22 05/25/24 Rx allergic reaction #15 grams aspirin 81 mg capsule 81 mg PO QAM 12/01/22 05/25/24 History cholecalciferol (vitamin D3) 250 500 mcg PO DAILY 01/24/23 05/25/24 History mcg (10,000 unit) tablet cyanocobalamin (vitamin B-12) 500 1,000 mcg (2 x 500 mcg) PO DAILY 03/15/23 05/25/24 Rx mcg tablet #60 tabs blood sugar diagnostic #100 ea 05/12/23 04/23/24 Rx Oxygen Home 05/17/23 04/23/24 History adalimumab 40 mg/0.8 mL 40 mg subcut WK 05/17/23 05/25/24 History subcutaneous syringe kit betamethasone dipropionate 0.05 % 1 applic topical BID PRN skin 05/25/23 05/25/24 Rx topical cream irritation #45 grams duloxetine 60 mg capsule,delayed 60 mg PO BID #60 caps 07/01/23 05/25/24 Rx release (Cymbalta) metoprolol succinate 25 mg 25 mg PO BID #180 tabs 08/19/23 05/25/24 Rx tablet,extended release 24 hr clopidogrel 75 mg tablet (Plavix) 75 mg PO QAM 10/26/23 05/25/24 History rimegepant 75 mg disintegrating 75 mg PO .COMPLEX PRN Migraine 10/26/23 05/25/24 History tablet (Nurtec ODT) Headache albuterol sulfate 90 mcg/actuation 2 puff inhalation Q6H PRN Wheezing 11/22/23 05/25/24 Rx aerosol inhaler #18 grams clobetasol 0.05 % lotion 1 applic topical BID PRN itching 2 11/22/23 05/25/24 Rx weeks #59 mL clobetasol 0.05 % topical cream 1 applic topical BID PRN rash #60 11/22/23 05/25/24 Rx grams fluticasone fur. 100 mcg-umeclid 1 inh inhalation QAM #60 ea 11/22/23 05/25/24 Rx 62.5 mcg-vilant 25 mcg inhalat.powder (Trelegy Ellipta) ezetimibe 10 mg tablet (Zetia) 10 mg PO HS #90 tabs 12/09/23 05/25/24 Rx pravastatin 40 mg tablet 40 mg PO HS #90 tabs 12/09/23 05/25/24 Rx levothyroxine 200 mcg tablet 200 mcg PO QAM #90 tabs 01/09/24 05/25/24 Rx trazodone 100 mg tablet 300 mg (3 x 100 mg) PO HS 90 days 01/12/24 05/25/24 Rx #270 tabs esomeprazole magnesium 40 mg 40 mg PO BID #180 caps 01/26/24 05/25/24 Rx capsule,delayed release (Nexium) folic acid 1 mg tablet 1 mg PO QAM #90 tabs 01/26/24 05/25/24 Rx levocetirizine 5 mg tablet (Xyzal) 5 mg PO HS #90 tabs 01/26/24 05/25/24 Rx silver sulfadiazine 1 % topical 1 applic topical DAILY PRN wound 01/26/24 05/25/24 Rx cream (Silvadene) healing #50 grams apixaban 5 mg tablet (Eliquis) 5 mg PO BID #90 tabs 02/01/24 05/25/24 Rx buspirone 10 mg tablet See Rx Instructions .Route 02/01/24 05/25/24 Rx .COMPLEX #405 tabs gabapentin 800 mg tablet 800 mg PO UD #105 tabs 02/01/24 05/25/24 Rx sucralfate 1 gram tablet (Carafate) 1 g PO BID PRN Acid Reflux #60 tabs 02/01/24 05/25/24 Rx epinephrine 0.3 mg/0.3 mL 0.3 mg (0.3 mL) IM Q10M PRN 02/10/24 05/25/24 Rx injection, auto-injector (EpiPen anaphylaxis #2 ea 2-Manny) nitroglycerin 0.4 mg sublingual 0.4 mg sublingual UD PRN Pain #25 02/10/24 05/25/24 Rx tablet (Nitrostat) tabs magnesium oxide 400 mg PO TID #270 tabs 02/15/24 05/25/24 Rx benzonatate 200 mg capsule 200 mg PO BID PRN cough #30 caps 03/19/24 05/25/24 Rx methocarbamol 500 mg tablet 1,000 mg (2 x 500 mg) PO QID 30 03/27/24 05/25/24 Rx days #240 tabs semaglutide 1 mg/dose (4 mg/3 mL) 1 mg (0.75 mL) subcut WK #3 mL 04/09/24 05/25/24 Rx subcutaneous pen injector (Ozempic) montelukast 10 mg tablet 10 mg PO QAM #90 tabs 05/07/24 05/25/24 Rx (Singulair) oxybutynin chloride 5 mg tablet 5 mg PO BID #30 tabs 05/08/24 05/25/24 Rx oxycodone 10 mg tablet 10 mg PO Q8H PRN pain, severe #90 05/08/24 05/25/24 Rx tabs hydroxyzine pamoate 25 mg capsule 25 mg PO TID PRN Anxiety #60 caps 05/15/24 05/25/24 Rx (Vistaril) Patient History Medical History (Updated 05/25/24 @ 16:57 by Maksim Alonzo MD) Thoracic spinal stenosis Type 2 diabetes mellitus Severe sleep apnea O2 2-5 L at night, no cpap, follows pulm Dr. Dr. Chan Neurogenic claudication Obesity hypoventilation syndrome On home oxygen therapy 2-5 l nc at night Lumbar disc disease Hypothyroidism (acquired) Hypomagnesemia History of left common carotid artery stent placement (01/20/23) Hx of gastritis Failed back syndrome CAD (coronary artery disease) Chronic low back pain Chronic interstitial cystitis Chronic hyponatremia Chronic anticoagulation Chronic antibiotic suppression Cervical radiculopathy limited rom Ataxia Anxiety Allergic rhinitis Paroxysmal atrial fibrillation IBS (irritable bowel syndrome) DJD of both shoulders "bone on bone" unable to have surgery due to blood thinners, has chronic pain both arms Chronic diarrhea Iron deficiency Last iron infusion on 04/20/24 at [facility] Anemia (03/31/24) recently admitted to [facility], has had 6 units PRBC's recently. Will have 1 unit PRBC at [facility] on 04/27/[address] Dickson History of dysphagia History of esophageal dilatation (10/31/23) Incontinence sees Dr. Bellamy Insomnia Hx of migraines rare Osteoarthritis Rheumatoid arthritis follows with pancho Gonzales at [facility] Psoriatic arthritis Depression Hyperlipidemia Hypertension GERD (gastroesophageal reflux disease) Diabetic neuropathy COPD (chronic obstructive pulmonary disease) chronic cough, has been using inhalers frequently, follows with Dr. Chan, O2 3-5 L nc at bedtime Clotting disorder per Dr. Dickson, per pt, unsure what type TIA (transient ischemic attack) (2013) 2013 > no residual effects - follows with dr. velázquez History of seizures Age 3 (in setting of fever/measles) > nothing since Meralgia paresthetica of right side Follows with neuro - Dr. Velázquez Mixed hearing loss of right ear No hearing aids History of DC (myocardial infarction) (2009) 2009 > nothing since > no stents Personal history of pulmonary embolism (2013) 2013 > treated with blood thinners - eliquis Personal history of skin cancer s/p excision from RLE Carotid artery narrowing Hx of thyroid cancer (2015) s/p thyroidectomy + XRT (one round) Hx of deep venous thrombosis 2013 > from Thrombophlebitis follows with Dr. Dickson Surgical History History of esophagogastroduodenoscopy (EGD) History of right common carotid artery stent placement (12/01/22) Dr Attila Carrington History of tonsillectomy H/O colonoscopy with polypectomy History of cystoscopy Multiple History of incision and drainage (08/11/20) I&D lumbar spine incision w/ placement of abx beads and wound vac - NO CURRENT WOUND VAC/ANTIBIOTIC DAILY (DOXYCYCLINE chronic) H/O cataract extraction R/L S/P dilatation and curettage S/P section x2 History of thyroidectomy, total (2015) History of knee replacement R/L History of placement of ear tubes R/L History of cervical spinal surgery x2; limited rom-right is ok to shoulder, left is better than right History of breast biopsy Left (benign) History of appendectomy History of back surgery x 6 total lumbar (including fusion) History of cardiac cath x7 (09/2012 > no stents)- all at [facility] except for 1 at [facility] (2009, [place])- Follows with [facility] (q 6 months last seen January 2024) Family History Mother Diabetes Family history of diabetes mellitus Cardiac disorder Heart trouble Myocardial infarction Renal failure Family history of reaction to anesthesia Hypertension Stroke Gallbladder disease Grandfather Family hx of colon cancer Myocardial infarction Father Colon cancer Cardiac disorder Kidney stones Heart trouble Myocardial infarction Degenerative disc disease Lung disease Hypertension Stroke Aunt Colon cancer Diabetes Grandmother (Maternal) Degenerative disc disease Cancer Sister Diabetes Family history of diabetes mellitus Breast cancer Cancer Hypertension Gallbladder disease Family/Other Kidney disease Brother Multiple sclerosis Uncle Myocardial infarction Grandfather (Maternal) Family history of diabetes mellitus Aunt Diabetes Aunt Diabetes Aunt Diabetes Aunt Diabetes Aunt Diabetes Other Dementia Denies family history of Ovarian cancer Prostate cancer Adverse effect of anesthesia Bleeding disorder Social History Smoking Status: Current every day smoker Tobacco Type: E-cigarettes / Vaping Age Started Using Tobacco: 12; packs per day: 0.5; Cigarettes Per Day: Vapes daily (advised); Second Hand Exposure: No; Do You Dip or Chew Tobacco: No; Hx Alcohol Use: No Hx Substance Use: No Preferred Language: Argentine Communication Ability: Effective Visual Impairment: Limited Hearing Ability: Hard of Hearing Rv Mechanic Required: No Beliefs That Will Affect Care: None marital status: Current Living Situation: Family Current Living Situation Comment: AND SON current occupational status: unemployed How many Children do You have: 2 Other Information That Helps Us Care for You: No Feels Safe at Home: Yes Safety Concerns: Feels Safe At This Time Childhood Exposure to Second-Hand Smoke: Yes (father smoked) Diet: regular Diet Comment: regular caffeine: Yes during the past year weight has: increased > 10 lbs Dental Care, Regularly: Yes Physical Activity Frequency: Does not Exercise Physical Activity Frequency Comment: LIMITED BY PHYSICAL CONDITION Seatbelt Use: always Sunscreen Use: Yes Assistive Devices: Cane, Denture - Upper, Denture - Lower, Glasses and Oxygen - at Night Review of Systems Review of Systems: All systems reviewed & are unremarkable except as noted in HPI & below Physical Exam Constitutional: WD/WN, vitals as above Respiratory: normal respiratory effort, lungs clear to auscultation Cardiovascular: Rate/Rhythm: regular rate and regular rhythm Gastrointestinal (Abdomen): LUQ tenderness to palpation, no guarding, soft, normal bowel sounds. Psychiatric: Orientation: alert and oriented x 3 Affect: euthymic affect Results & Data Vital Signs (Past 12 Hours) Vital Signs Temp Pulse Pulse Resp BP BP Pulse Ox 05/25/24 14:06 98.1 F 81 18 92/62 L 100 05/25/24 14:03 98.4 F 80 18 92/62 L 100 05/25/24 13:15 72 16 100 05/25/24 12:48 76 12 100 05/25/24 12:08 75 05/25/24 12:07 135/69 05/25/24 11:27 72 20 05/25/24 11:06 71 14 05/25/24 10:53 118/67 05/25/24 10:42 76 19 05/25/24 10:06 97.9 F 76 20 126/56 L 97 O2 Del Method O2 Flow Rate 05/25/24 14:06 2 05/25/24 14:03 Nasal Cannula 3 05/25/24 13:15 05/25/24 12:48 05/25/24 12:08 05/25/24 12:07 05/25/24 11:27 05/25/24 11:06 05/25/24 10:53 05/25/24 10:42 05/25/24 10:06 Room Air Diagnostic Findings CT SCAN OF THE ABDOMEN AND PELVIS WITH IV CONTRAST CLINICAL HISTORY: Anemia. Generalized abdominal pain. Hematochezia. COMPARISON STUDY: Abdominal CT dated 12/25/2021. TECHNIQUE: Following the IV administration of 93 cc of Optiray 320, CT scan of the abdomen and pelvis is performed from the lung bases to the proximal femora. Images are reviewed in the axial, sagittal, and coronal planes. IV contrast was administered without complication. A dose lowering technique was utilized adhering to the principles of ALARA. There is streak artifact from metallic spinal hardware. CT DOSE: 1375. mGy.cm FINDINGS: Lung bases: The heart is top normal in size and without pericardial effusion. There is coronary artery atherosclerosis. There are scattered calcified granulomas. The lung bases are otherwise clear noting bibasilar scarring/atelectasis. Liver: The contrast-enhanced liver is normal in size, contour, and attenuation. There is no intrahepatic biliary ductal dilatation. The hepatic veins and portal veins are patent. Gallbladder: Unremarkable. Spleen: Normal in size and attenuation. There are at least 3 splenic hypodensi ties which measure up to 15 mm. These are pathologically indeterminate and statistically of doubtful significance. These were present on prior examinations. Pancreas: Unremarkable. Adrenal glands: Unremarkable. Kidneys: The contrast enhanced kidneys demonstrate mild cortical atrophy and are without hydronephrosis. The kidneys enhance symmetrically. A 2.3 cm cyst is noted on the left. Abdominal vasculature: There is advanced atherosclerotic calcification and ectasia of the abdominal aorta. Bowel: There is eodi-ne-arvskhzs colonic diverticulosis without CT evidence of acute diverticulitis. No bowel obstruction is seen. The appendix is not identified and reported surgically absent. Peritoneum: There is no intraperitoneal free air or abdominal ascites. There is a fat-containing umbilical hernia. Lymphadenopathy: None. Pelvic viscera: The bladder is normal as visualized. The uterus is surgically absent. No adnexal lesion is seen. Skeletal structures: The skeletal structures are osteopenic. Postsurgical and spondylotic change is noted in the lumbar spine. There is mild scoliosis. No lytic or blastic lesions are seen. IMPRESSION: 1. No acute infectious or inflammatory findings are identified in the abdomen or pelvis. 2. Colonic diverticulosis without CT evidence of acute diverticulitis. 3. Coronary artery atherosclerosis. 4. Additional findings as above. ACT 112: Negative or not required by law. Electronically signed by: Milad Lees M.D. 05/25/2024 1:31 PM Coding Level of Care Code 12487 INT INP/OBS CARE MIN Diagnoses GIB (gastrointestinal bleeding) K92.2 GI bleed type/associated pathology: unspecified gastrointestinal hemorrhage type Bright red blood per rectum K62.5 Anemia D64.9 Iron deficiency anemia type: chronic blood loss (1) GIB (gastrointestinal bleeding) GI bleed type/associated pathology: unspecified gastrointestinal hemorrhage type Qualified Code(s): K92.2 - Gastrointestinal hemorrhage, unspecified (3) Anemia Iron deficiency anemia type: chronic blood loss
--- NOTE | 2024-05-25 15:34 | Electrocardiogram Report ---
Test Reason : Blood Pressure : */* mmHG Vent. Rate : 71 BPM Atrial Rate : 71 BPM P-R Int : 160 ms QRS Dur : 70 ms QT Int : 400 ms P-R-T Axes : 33 57 48 degrees QTcB Int : 434 ms Normal sinus rhythm Nonspecific ST and T wave abnormality Abnormal ECG When compared with ECG of 30-Mar-2024 15:29, No significant change was found Confirmed by Sea Deshpande ([id number]) on 05/25/2024 3:33:48 PM Referred By: Ankur Dickson Confirmed By: Sea Deshpande
[2024-05-25] MEDS: GABAPENTIN 800 MG TAB PO SCH (15:50)
[2024-05-25] MEDS: busPIRone 5 MG TAB PO SCH ×2 (15:51→20:19)
[2024-05-25] MEDS: METHOCARBAMOL 500 MG TABLET PO SCH (15:51)
[2024-05-25] MEDS: INSULIN ASPART PER UNIT CHARGE SC SCH ×2 (16:08→20:28)
[2024-05-25] MEDS ORDERED: Nursing to Pharmacy Communication SCH (17:15)
[2024-05-25] MEDS: PANTOprazole 40 MG in SYRINGE 0 ML IV SCH (20:18)
[2024-05-25] MEDS: DOXYCYCLINE HYCLATE 100 MG CAP PO SCH (20:19)
[2024-05-25] MEDS: DULoxetine HCL 60 MG CAP PO SCH (20:20)
[2024-05-25] MEDS: traZODone HCL 100 MG TAB PO SCH (20:20)
[2024-05-25] MEDS: GABAPENTIN 400 MG CAP PO SCH (20:20)
[2024-05-25] MEDS: METOPROLOL SUCC 25MG EXT REL TAB PO SCH (20:21)
[2024-05-25] MEDS: BENZONATATE 100 MG CAPSULE PO PRN (20:30)
[2024-05-25 21:42] LABS: Hematocrit (blood only) 23.3 % (37.0-47.0); Mean Corpuscular Hemoglobin 26.2 pg (25.0-34.0); Mean Corpuscular Volume 87.3 fL (80.0-100.0); Mean Platelet Volume 9.8 fL (9.4-12.4); Nucleated RBC # (auto) 0.02 K/uL (0.00-0.12); Nucleated RBC % (auto) 0.2 %; Platelet Count 297 K/uL (130-400); RDW Coefficient of Variation 16.1 % (11.5-14.5); RDW Standard Deviation 51.6 fL (36.4-46.3); Red Blood Count 2.67 M/uL (4.20-5.40); White Blood Count 8.42 K/ul (4.8-10.8)
[2024-05-25] MEDS: oxyCODONE HCL IR 5 MG TAB (IMMEDIATE RELEASE) PO STA (22:38)
[2024-05-25] MEDS: oxyBUTYnin chloride 5 MG TAB PO SCH (23:10)
[2024-05-25] MEDS: CETIRIZINE HCL 10 MG TABLET PO SCH (23:10)
[2024-05-26] MEDS: LEVOTHYROXINE SODIUM 200 MCG TABLET PO SCH (05:48)
[2024-05-26 05:54] LABS: Hematocrit (blood only) 27.3 % (37.0-47.0); Hemoglobin 8.4 g/dl (12.0-16.0); Mean Corpuscular Hemoglobin 26.9 pg (25.0-34.0); Mean Corpuscular Hgb Conc 30.8 g/dL (32.0-36.0); Mean Corpuscular Volume 87.5 fL (80.0-100.0); Mean Platelet Volume 9.8 fL (9.4-12.4); Nucleated RBC # (auto) 0.02 K/uL (0.00-0.12); Nucleated RBC % (auto) 0.3 %; Platelet Count 267 K/uL (130-400); RDW Coefficient of Variation 15.8 % (11.5-14.5); RDW Standard Deviation 49.5 fL (36.4-46.3); Red Blood Count 3.12 M/uL (4.20-5.40); White Blood Count 7.63 K/ul (4.8-10.8)
[2024-05-26 06:08] LABS: Albumin Globulin Ratio 1.6 (0.9-2); Albumin Level 3.2 gm/dl (3.4-5.0); BUN Creatinine Ratio 12.8 (10-20); Bilirubin,Total 0.3 mg/dl (0.2-1.0); Calcium 7.7 mg/dl (8.6-10.3); Creatinine Clr Calc Pharmacy 93.5 ml/min; Est GFR (African American) 92.5 ml/min; Est GFR (Non-African American) 79.8 ml/min; Magnesium 1.7 mg/dl (1.7-2.4); Potassium 4.2 mmol/L (3.5-5.1); Total Protein 5.2 gm/dl (6.0-8.3)
[2024-05-26 06:18] LABS: Prothrombin Time 10.8 Seconds (9.0-12.0)
[2024-05-26] MEDS: FLUTICASONE FUROATE 100MCG 14 PUFFS/INHALER INH SCH (08:37)
[2024-05-26] MEDS: MONTELUKAST SODIUM 10 MG TABLET PO SCH (08:39)
[2024-05-26] MEDS: UMECLIDINIUM/VILANTEROL 62.5/25MCG 7 PUFFS/INHALER INH SCH (08:40)
[2024-05-26 08:54] LABS: Hematocrit (blood only) 29.4 % (37.0-47.0); Mean Corpuscular Hemoglobin 26.8 pg (25.0-34.0); Mean Corpuscular Hgb Conc 30.6 g/dL (32.0-36.0); Mean Corpuscular Volume 87.5 fL (80.0-100.0); Mean Platelet Volume 9.8 fL (9.4-12.4); Nucleated RBC # (auto) 0.02 K/uL (0.00-0.12); Nucleated RBC % (auto) 0.3 %; Platelet Count 277 K/uL (130-400); RDW Standard Deviation 50.6 fL (36.4-46.3); Red Blood Count 3.36 M/uL (4.20-5.40); White Blood Count 6.92 K/ul (4.8-10.8)
[2024-05-26] MEDS: ACETAMINOPHEN 325 MG TAB PO PRN (09:01)
[2024-05-26] MEDS: oxyCODONE HCL IR 5 MG TAB (IMMEDIATE RELEASE) PO PRN (12:32)
--- NOTE | 2024-05-26 13:01 | Gastroenterology Progress Note ---
Date of Service May 26, 2024 Assessment & Plan (1) Anemia: Plan: The patient was severely anemic when she came in she was transfused and she has responded adequately to the transfusion of note she has not had any more bowel movements or any symptoms of bleeding since admission to the hospital of note she had a colonoscopy in October of this year which showed that she had internal hemorrhoids which makes. Explained the bright red bleeding that she had she also had some polyps she also had an upper endoscopy which showed reflux esophagitis but was otherwise unremarkable at the current time there is no evidence of active bleeding the patient is on anticoagulation and I suspect she may have AVMs which is why she is bleeding she is under going a capsule endoscopy later this month at the current time I would 1. Follow H&H serially 2. Would not repeat EGD or colonoscopy as they do not seem to be any evidence of active bleeding 3. Patient should undergo her capsule endoscopy and based upon the findings we will decide upon repeat endoscopy evaluation if negative she may need to go through another EGD and colonoscopy as she has been continuing to lose blood 4. Replace iron stores 5. PPI daily in view of history of esophagitis Thank you for allowing us to take part in the care of your patient we will continue to follow her with you Admission and Anticipated Discharge Date Admission Date: May 25, 2024 Subjective Patient is lying comfortably in bed without any complaints she denies any dysphagia or reflux nausea vomiting or abdominal pain she is quite asymptomatic she states she feels good she has not had a bowel movement in the last 24 hours infectious states her last bowel movement was essentially without any complaints at the current time. Review of Systems Review of Systems: A 10 point review of systems was done Physical Exam Constitutional: WD/WN, vitals as above Respiratory: normal respiratory effort, lungs clear to auscultation Cardiovascular: RRR, no murmur, no edema Gastrointestinal (Abdomen): normal bowel sounds, soft, nontender, no hepatosplenomegaly Results & Data Results & Data Vital Signs (Past 12 Hours) Vital Signs Temp Pulse Pulse Resp BP BP Pulse Ox 05/26/24 10:49 36.8 C 75 18 146/81 H 97 05/26/24 08:48 75 98/64 L 05/26/24 08:14 36.8 C 79 17 74/56 L 96 05/26/24 08:00 05/26/24 04:44 36.6 C 72 20 88/48 L 97 05/26/24 03:55 36.6 C 70 18 81/45 L 98 05/26/24 02:55 36.6 C 74 18 88/50 L 97 05/26/24 02:25 36.5 C 71 18 86/50 L 98 05/26/24 02:10 36.6 C 71 20 84/48 L 99 05/26/24 01:55 36.6 C 73 19 88/50 L 98 05/26/24 01:53 36.5 C 76 18 86/48 L 97 05/26/24 01:26 36.8 C 76 20 90/50 L 97 O2 Del Method O2 Flow Rate 05/26/24 10:49 Nasal Cannula 2 05/26/24 08:48 05/26/24 08:14 Nasal Cannula 2 05/26/24 08:00 Nasal Cannula 2 05/26/24 04:44 05/26/24 03:55 05/26/24 02:55 05/26/24 02:25 05/26/24 02:10 05/26/24 01:55 05/26/24 01:53 05/26/24 01:26 PG Care Time/CCT Total # of Minutes Spent Total Time Spent with Patient: Total time spent is greater than 50% in coordination of care (as documented) at patient's floor/unit and/or counseling patient: Coding Level of Care Code 87027 SUB INP/OBS CARE 10/13MIN Diagnoses Anemia D64.9 Iron deficiency anemia type: chronic blood loss (1) Anemia Iron deficiency anemia type: chronic blood loss
[2024-05-26] MEDS: IRON SUCROSE 200 MG in 0.9 % SODIUM CHLORIDE 100 ML IV ONE (15:21)
[2024-05-26 15:25] LABS: Hematocrit (blood only) 31.7 % (37.0-47.0); Hemoglobin 9.7 g/dl (12.0-16.0); Mean Corpuscular Hemoglobin 26.9 pg (25.0-34.0); Mean Corpuscular Hgb Conc 30.6 g/dL (32.0-36.0); Mean Corpuscular Volume 88.1 fL (80.0-100.0); Mean Platelet Volume 10.2 fL (9.4-12.4); Nucleated RBC # (auto) 0.03 K/uL (0.00-0.12); Nucleated RBC % (auto) 0.3 %; Platelet Count 318 K/uL (130-400); RDW Coefficient of Variation 16.3 % (11.5-14.5); RDW Standard Deviation 52.1 fL (36.4-46.3); White Blood Count 9.24 K/ul (4.8-10.8)
[2024-05-26 20:29] LABS: Hematocrit (blood only) 27.9 % (37.0-47.0); Hemoglobin 8.7 g/dl (12.0-16.0); Mean Corpuscular Hemoglobin 26.8 pg (25.0-34.0); Mean Corpuscular Hgb Conc 31.2 g/dL (32.0-36.0); Mean Corpuscular Volume 85.8 fL (80.0-100.0); Mean Platelet Volume 9.7 fL (9.4-12.4); Platelet Count 279 K/uL (130-400); RDW Coefficient of Variation 16.2 % (11.5-14.5); RDW Standard Deviation 50.2 fL (36.4-46.3); Red Blood Count 3.25 M/uL (4.20-5.40); White Blood Count 8.83 K/ul (4.8-10.8)
[2024-05-26] MEDS: PRAVASTATIN SOD 40 MG TAB PO SCH (21:07)
[2024-05-27 02:16] LABS: Hematocrit (blood only) 28.2 % (37.0-47.0); Hemoglobin 8.6 g/dl (12.0-16.0); Mean Corpuscular Hemoglobin 26.9 pg (25.0-34.0); Mean Corpuscular Hgb Conc 30.5 g/dL (32.0-36.0); Mean Corpuscular Volume 88.1 fL (80.0-100.0); Mean Platelet Volume 9.7 fL (9.4-12.4); Platelet Count 270 K/uL (130-400); RDW Coefficient of Variation 16.4 % (11.5-14.5); RDW Standard Deviation 52.3 fL (36.4-46.3); White Blood Count 8.45 K/ul (4.8-10.8)
[2024-05-27 02:30] LABS: Albumin Globulin Ratio 1.5 (0.9-2); Albumin Level 3.2 gm/dl (3.4-5.0); BUN Creatinine Ratio 9.8 (10-20); Bilirubin,Total 0.3 mg/dl (0.2-1.0); Calcium 8.4 mg/dl (8.6-10.3); Est GFR (Non-African American) 75.1 ml/min; Globulin 2.1 gm/dl (2.5-4.0); Magnesium 1.7 mg/dl (1.7-2.4); Potassium 3.9 mmol/L (3.5-5.1); Total Protein 5.3 gm/dl (6.0-8.3)
[2024-05-27 02:41] LABS: Prothrombin Time 10.9 Seconds (9.0-12.0)
[2024-05-27] MEDS: hydrOXYzine HCl 25 MG TAB PO PRN (08:06)
--- NOTE | 2024-05-27 08:08 | Hospitalist Progress Note ---
Date of Service May 26, 2024 Assessment & Plan (1) Symptomatic anemia: Plan: Admit to the PCU on telemetry and pulse oximetry Currently hemodynamically stable, stable on room air, and nontoxic-appearing Presented to the ED at the recommendation of her maintainer central office due to outpatient CBC showed hemoglobin of 5, confirmed on arrival with hemoglobin of 5.2 (down from 11 as of 05/02/2024) Patient had a recent admission in March of this year for anemia thought to be due to staple GI bleed, and remained stable and her Eliquis/aspirin/Plavix have been held and after receiving 2 units packed red blood cells Is scheduled to see gastroenterology at the end of this month for capsule endoscopy, patient may require endoscopy/colonoscopy during this admission with her ongoing bleeding Patient did report abdominal pain and bright red blood along with clots with her recent bowel movements, ED confirmed she is heme positive today Has been consented for blood and ordered initial 2 units packed red blood cells by the ED Will obtain CT of the abdomen pelvis with IV contrast on admission for further evaluation Hold Eliquis, aspirin, and Plavix for now Will add twice daily IV pantoprazole due to her symptoms of nausea history of previous gastric ulcers Gastroenterology has been consulted, will keep n.p.o. except meds for now Will monitor CBC every 6 hours moving forward after her 2 units of packed red blood cells are complete Bilateral SCDs for DVT prophylaxis AM CMP, mag, PT/INR On 05/26 transfused 4 units of PRBC. hemoglobin improved. blood pressure stabilized plan for outpatient endoscopy (2) Bright red blood per rectum: Plan: See symptomatic anemia (3) Bilateral carotid artery stenosis: Plan: Patient had previously undergone bilateral carotid artery stent placement Dr. Aiken 2022, had recent revascularization of stenosed left carotid artery stent last month with Dr. Aiken Has been on aspirin/Plavix in addition to her Eliquis Did have her a.m. dose of aspirin/Plavix today Will plan to hold aspirin and Plavix for now until she is deemed stable from her GI bleed Once stable would restart aspirin/Plavix WINIFRED (4) Severe sleep apnea: Plan: Patient uses 5 L NC HS, does not use CPAP (5) AF (paroxysmal atrial fibrillation): Plan: Currently in normal sinus rhythm Holding Eliquis with GI bleed and symptomatic anemia Continue metoprolol she is hemodynamically stable (6) COPD (chronic obstructive pulmonary disease): Plan: Currently stable on room air with mild expiratory wheezing States that she is currently vaping and not smoking cigarettes, still recommended she quit vaping as well States that she uses 3 L as needed O2 during the day As needed O2 to keep SpO2 between 89-92%, incentive spirometry Will continue for home breathing treatments (7) Type 2 diabetes mellitus: Plan: Hold semaglutide Has only required CF of 50 and CR 15 during previous admissions, will continue this for now every 6 hours while NPO Adjust regimen as needed (8) Chronic antibiotic suppression: Plan: Continue doxycycline Plan The patient was discussed with Dr. Escobar at the time of admission Admission and Anticipated Discharge Date Admission Date: May 25, 2024 Subjective Patient reports no blood in stools today. Physical Exam Physical Exam: General: In no acute distress HEENT: Normocephalic, atraumatic, no scleral icterus, pupils around round, symmetrical, and reactive to light, moist mucus membranes, trachea midline, no thyromegaly Chest/Pulm: No respiratory distress, symmetrical chest expansion, scattered expiratory wheezing Cardiac: RRR, no murmurs noted Abdomen: Negative for ascites and bruising, normoactive bowel sounds, soft, mildly tender in the left upper and lower quadrants without rebound tenderness Neuro: Alert and oriented to person, place, month, year, and president, no focal defects, no tremors noted Psych: No acute distress, calm and cooperative during the exam Results & Data Results & Data Vital Signs (Past 12 Hours) Vital Signs Temp Pulse Pulse Resp BP Pulse Ox O2 Del Method 05/27/24 06:57 36.7 C 67 16 71/45 L 92 Nasal Cannula 05/27/24 05:43 104/54 L 05/27/24 03:12 36.3 C L 71 16 70/45 L 98 Nasal Cannula 05/27/24 01:05 81 05/26/24 22:45 36.8 C 86 16 104/68 97 Nasal Cannula 05/26/24 21:26 Nasal Cannula O2 Flow Rate 05/27/24 06:57 5 05/27/24 05:43 05/27/24 03:12 05/27/24 01:05 05/26/24 22:45 5 05/26/24 21:26 5 PG Care Time/CCT Total # of Minutes Spent Total Time Spent with Patient: Total time spent is greater than 50% in coordination of care (as documented) at patient's floor/unit and/or counseling patient: Coding Level of Care Code 50826 SUB INP/OBS CARE 3/50MIN Diagnoses Symptomatic anemia D64.9 Bright red blood per rectum K62.5 Bilateral carotid artery stenosis I65.23 Severe sleep apnea G47.30 AF (paroxysmal atrial fibrillation) I48.0 COPD (chronic obstructive pulmonary disease) J44.9 Type 2 diabetes mellitus E11.9 Chronic antibiotic suppression Z79.2
--- NOTE | 2024-05-27 12:23 | Gastroenterology Progress Note ---
Date of Service May 27, 2024 Assessment & Plan (1) Anemia: Plan: The patient is comfortable she has not had any more bleeding or any further bowel movements however her hemoglobin has trended down a little bit at the current time I would 1. Plan for EGD in a.m. since her last EGD was in October of this year however I would not do a colonoscopy as a colonoscopy was also relatively recent and she had internal hemorrhoids which would explain her rectal bleeding 2. Agree with iron replacement therapy 3. She is already scheduled for a video capsule endoscopy and she should follow-up with that was likely etiology is AVMs in the small bowel 4. Anticoagulation as per primary team Thank you for allowing us to take part in the care of your patient we will continue to follow her with you Admission and Anticipated Discharge Date Admission Date: May 25, 2024 Subjective Patient is lying comfortably in the bed and does not have any active complaints she has not had a bowel movement she denies any dysphagia or reflux nausea vomiting or abdominal pain of note she has had a slight fall in her hemoglobin but on the whole she feels about the same Review of Systems Review of Systems: 10 point review of systems was done Physical Exam Constitutional: WD/WN, vitals as above Eyes: PERRL, conjunctivae normal, anicteric sclerae Neck: Supple Respiratory: normal respiratory effort, lungs clear to auscultation Cardiovascular: S1 and S2 Gastrointestinal (Abdomen): normal bowel sounds, soft, nontender, no hepatosplenomegaly Results & Data Results & Data Vital Signs (Past 12 Hours) Vital Signs Temp Pulse Pulse Resp BP Pulse Ox O2 Del Method 05/27/24 10:52 36.7 C 73 15 90/61 L 94 Room Air 05/27/24 06:57 36.7 C 67 16 71/45 L 92 Nasal Cannula 05/27/24 05:43 104/54 L 05/27/24 03:12 36.3 C L 71 16 70/45 L 98 Nasal Cannula 05/27/24 01:05 81 O2 Flow Rate 05/27/24 10:52 05/27/24 06:57 5 05/27/24 05:43 05/27/24 03:12 05/27/24 01:05 PG Care Time/CCT Total # of Minutes Spent Total Time Spent with Patient: Total time spent is greater than 50% in coordination of care (as documented) at patient's floor/unit and/or counseling patient: Coding Level of Care Code 12663 SUB INP/OBS CARE 235MIN Diagnoses Anemia D64.9 Iron deficiency anemia type: chronic blood loss (1) Anemia Iron deficiency anemia type: chronic blood loss
[2024-05-27] MEDS: LACTATED RINGER'S 1,000 ML IV ONE (15:41)
[2024-05-27] MEDS ORDERED: SODIUM CHLORIDE 0.9% 250 ML IV PRN (16:59)
[2024-05-27 18:09] LABS: Hematocrit (blood only) 31.2 % (37.0-47.0); Hemoglobin 9.8 g/dl (12.0-16.0)
--- NOTE | 2024-05-27 22:50 | Hospitalist Progress Note ---
Date of Service May 27, 2024 Assessment & Plan (1) Symptomatic anemia: Plan: Admit to the PCU on telemetry and pulse oximetry Currently hemodynamically stable, stable on room air, and nontoxic-appearing Presented to the ED at the recommendation of her base draw operator due to outpatient CBC showed hemoglobin of 5, confirmed on arrival with hemoglobin of 5.2 (down from 11 as of 05/02/2024) Patient had a recent admission in March of this year for anemia thought to be due to staple GI bleed, and remained stable and her Eliquis/aspirin/Plavix have been held and after receiving 2 units packed red blood cells Is scheduled to see gastroenterology at the end of this month for capsule endoscopy, patient may require endoscopy/colonoscopy during this admission with her ongoing bleeding Patient did report abdominal pain and bright red blood along with clots with her recent bowel movements, ED confirmed she is heme positive today Has been consented for blood and ordered initial 2 units packed red blood cells by the ED Hold Eliquis, aspirin, and Plavix for now Will add twice daily IV pantoprazole due to her symptoms of nausea history of previous gastric ulcers Gastroenterology has been consulted, transfused 4 units of PRBC. hemoglobin improved. blood pressure stabilized plan for outpatient capsule endoscopy However due to labile blood pressure on 05/27 patient will have upper endoscopy on 05/28 reviewed hemoglobin AM was slightly lower. Blood pressure however improved in the evening of 05/27 NPO after midnight. (2) Bright red blood per rectum: Plan: See symptomatic anemia (3) Bilateral carotid artery stenosis: Plan: Patient had previously undergone bilateral carotid artery stent placement Dr. Aiken 2022, had recent revascularization of stenosed left carotid artery stent last month with Dr. Aiken Has been on aspirin/Plavix in addition to her Eliquis Did have her a.m. dose of aspirin/Plavix today Will plan to hold aspirin and Plavix for now until she is deemed stable from her GI bleed Once stable would restart aspirin/Plavix WINIFRED (4) Severe sleep apnea: Plan: Patient uses 5 L NC HS, does not use CPAP (5) AF (paroxysmal atrial fibrillation): Plan: Currently in normal sinus rhythm Holding Eliquis with GI bleed and symptomatic anemia Continue metoprolol she is hemodynamically stable (6) COPD (chronic obstructive pulmonary disease): Plan: Currently stable on room air with mild expiratory wheezing States that she is currently vaping and not smoking cigarettes, still recommended she quit vaping as well States that she uses 3 L as needed O2 during the day As needed O2 to keep SpO2 between 89-92%, incentive spirometry Will continue for home breathing treatments (7) Type 2 diabetes mellitus: Plan: Hold semaglutide Has only required CF of 50 and CR 15 during previous admissions, will continue this for now every 6 hours while NPO Adjust regimen as needed (8) Chronic antibiotic suppression: Plan: Continue doxycycline Admission and Anticipated Discharge Date Admission Date: May 25, 2024 Subjective Patient reprts having a migraine headache eralier in the day. This subsided after fluid bolus. Review of Systems Review of Systems: All systems reviewed & are unremarkable except as noted in HPI & below Physical Exam Physical Exam: General: In no acute distress HEENT: Normocephalic, atraumatic, no scleral icterus, pupils around round, symmetrical, and reactive to light, moist mucus membranes, trachea midline, no thyromegaly Chest/Pulm: No respiratory distress, symmetrical chest expansion, scattered expiratory wheezing Cardiac: RRR, no murmurs noted Abdomen: Negative for ascites and bruising, normoactive bowel sounds, soft, mildly tender in the left upper and lower quadrants without rebound tenderness Neuro: Alert and oriented to person, place, month, year, and president, no focal defects, no tremors noted Psych: No acute distress, calm and cooperative during the exam Results & Data Results & Data Vital Signs (Past 12 Hours) Vital Signs Temp Pulse Resp BP Pulse Ox O2 Del Method O2 Flow Rate 05/27/24 21:20 Nasal Cannula 5 05/27/24 19:00 36.8 C 73 20 148/73 H 98 Nasal Cannula 2 05/27/24 15:11 37 C 69 17 72/42 L 95 Nasal Cannula 2 05/27/24 14:31 37.1 C 75 15 87/56 L 94 Room Air 05/27/24 10:52 36.7 C 73 15 90/61 L 94 Room Air PG Care Time/CCT Total # of Minutes Spent Total Time Spent with Patient: Total time spent is greater than 50% in coordination of care (as documented) at patient's floor/unit and/or counseling patient: Coding Level of Care Code 57968 SUB INP/OBS CARE 3/50MIN Diagnoses Symptomatic anemia D64.9 Bright red blood per rectum K62.5 Bilateral carotid artery stenosis I65.23 Severe sleep apnea G47.30 AF (paroxysmal atrial fibrillation) I48.0 COPD (chronic obstructive pulmonary disease) J44.9 Type 2 diabetes mellitus E11.9 Chronic antibiotic suppression Z79.2
[2024-05-28 07:08] LABS: Hematocrit (blood only) 28.6 % (37.0-47.0); Hemoglobin 8.6 g/dl (12.0-16.0); Mean Corpuscular Hgb Conc 30.1 g/dL (32.0-36.0); Mean Corpuscular Volume 89.9 fL (80.0-100.0); Mean Platelet Volume 9.7 fL (9.4-12.4); Platelet Count 285 K/uL (130-400); RDW Coefficient of Variation 16.7 % (11.5-14.5); RDW Standard Deviation 52.4 fL (36.4-46.3); Red Blood Count 3.18 M/uL (4.20-5.40); White Blood Count 6.28 K/ul (4.8-10.8)
[2024-05-28 07:28] LABS: Albumin Globulin Ratio 1.7 (0.9-2); Albumin Level 3.2 gm/dl (3.4-5.0); BUN Creatinine Ratio 11.7 (10-20); Bilirubin,Total 0.3 mg/dl (0.2-1.0); Creatinine Clr Calc Pharmacy 77.1 ml/min; Est GFR (African American) 73.8 ml/min; Est GFR (Non-African American) 63.7 ml/min; Globulin 1.9 gm/dl (2.5-4.0); Magnesium 1.6 mg/dl (1.7-2.4); Potassium 4.3 mmol/L (3.5-5.1); Total Protein 5.1 gm/dl (6.0-8.3)
[2024-05-28 07:30] LABS: INR 0.9 (0.9-1.1); Prothrombin Time 10.3 Seconds (9.0-12.0)
--- NOTE | 2024-05-28 07:58 | Hospitalist Progress Note ---
Date of Service May 28, 2024 Assessment & Plan (1) Anemia: Plan: Concern for anemia from acute blood loss patient has been on dual antiplatelet therapy plus anticoagulation. Subsequent concern for endoscopy did not outweigh the risk given her recent Ozempic administration and endoscopy is not performed. Will continue to follow hemoglobin augment when necessary and she is scheduled for capsule outpatient enteroscopy. (2) Bilateral carotid artery stenosis: Plan: Patient had previously undergone bilateral carotid artery stent placement Dr. Aiken 2022, had recent revascularization of stenosed left carotid artery stent last month with Dr. Aiken Has been on aspirin/Plavix in addition to her Eliquis Did have her a.m. dose of aspirin/Plavix on admission Will plan to hold aspirin and Plavix Once stable would restart aspirin/Plavix WINIFRED (3) AF (paroxysmal atrial fibrillation): Plan: Currently in normal sinus rhythm-Continue metoprolol Holding Eliquis with GI bleed and symptomatic anemia (4) COPD (chronic obstructive pulmonary disease): Plan: Currently stable on room air with mild expiratory wheezing States that she is currently vaping and not smoking cigarettes, still recommended she quit vaping as well States that she uses 3 L as needed O2 during the day As needed O2 to keep SpO2 between 89-92%, incentive spirometry Will continue for home breathing treatments (5) Type 2 diabetes mellitus: Plan: Hold semaglutide Has only required CF of 50 and CR 15 during previous admissions, will continue this for now every 6 hours while NPO Adjust regimen as needed (6) Chronic antibiotic suppression: Plan: Continue doxycycline (7) Severe sleep apnea: Plan: Patient uses 5 L NC HS, does not use CPAP Plan Patient complaining of what seems to be a migraine with aura using Maxalt therapy Patient has diffuse pruritus attempting to quell this with antihistamines including Pepcid Admission and Anticipated Discharge Date Admission Date: May 25, 2024 Subjective Patient was seen after her endoscopy was canceled this was canceled due to her recent taking of Ozempic. Patient herself was having multiple somatic complaints including left-sided headache and visual scotomata. She is has a history of migraines and will try dose of Maxalt. Patient feels she is having diffuse allergic reaction with itchiness she is already on scheduled Zyrtec subsequently gave her an additional dose of IV Benadryl and IV Pepcid twice daily. She does not believe she has had any food related allergens and she feels she may be allergic to the detergent from the sheets. GI did not feel endoscopy is warranted as she has not had a bowel movement for a few days her hemoglobin although low has been stable. She is scheduled for outpatient capsule enteroscopy on June 11 for initial evaluation at the [facility] Physical Exam Physical Exam: Patient appears in no distress she has some excoriated areas on arms hands and knees which she feels are as her rash difficult to tell because she has unfortunately scratched these areas Abdomen is with normal active bowel sounds soft uncomfortable but without acute abdomen or focused tenderness Neurologically her cranial nerves are intact she has no diplopia or visual field cuts she says she sees a floater move about her left eye in a boxlike fashion. She has previous visual changes with migraines and is on Nurtec as an outpatient with following [facility] neurology Results & Data Results & Data Vital Signs (Past 12 Hours) Vital Signs Temp Pulse Pulse Resp BP BP Pulse Ox 05/28/24 07:03 97.9 F 70 18 130/65 97 05/28/24 05:56 131/70 70/42 L 05/28/24 03:36 97.3 F L 83 22 100 05/27/24 23:29 98.1 F 83 20 135/68 93 05/27/24 23:08 82 05/27/24 21:20 O2 Del Method O2 Flow Rate 05/28/24 07:03 Nasal Cannula 5 05/28/24 05:56 05/28/24 03:36 Nasal Cannula 5 05/27/24 23:29 Nasal Cannula 5 05/27/24 23:08 05/27/24 21:20 Nasal Cannula 5 Laboratory Results Reviewed CBC reviewed chemistry Personally discussed the case with Dr. Doyle gastroenterology PG Care Time/CCT Total # of Minutes Spent Total Time Spent with Patient: Total time spent is greater than 50% in coordination of care (as documented) at patient's floor/unit and/or counseling patient: Coding Level of Care Code 97329 SUB INP/OBS CARE 3/50MIN Diagnoses Anemia D64.9 Iron deficiency anemia type: chronic blood loss Bilateral carotid artery stenosis I65.23 AF (paroxysmal atrial fibrillation) I48.0 COPD (chronic obstructive pulmonary disease) J44.9 Type 2 diabetes mellitus E11.9 Chronic antibiotic suppression Z79.2 Severe sleep apnea G47.30 (1) Anemia Iron deficiency anemia type: chronic blood loss
[2024-05-28] MEDS: MAGNESIUM SULFATE / D5W 1 GM/100 ML BAG IV ONE (08:14)
--- NOTE | 2024-05-28 09:13 | Anesthesiology Consultation ---
Date of Service May 28, 2024 Assessment & Plan Chart Review Chart Review: Acceptable Risk for Surgery and Patient NOT seen in Pre Admission Testing Consults Requested none ASA ASA4 Proposed Anesthesia Anesthesia Type: MAC History Surgery Operation Date: 05/28/24 16:30 Proposed Procedures p Esophagogastroduodenoscopy Yanira Doyle MD Height/Weight Height: 5 ft 4 in Weight: 122.6 kg Allergies Allergy/AdvReac Type Severity Reaction Status Date / Time bee pollen Allergy Severe Anaphylaxis Verified 05/02/24 10:34 fentanyl Allergy Severe Severe Verified 05/02/24 10:34 sedation, resp depression (only with patches) Penicillins Allergy Severe Anaphylaxis Verified 05/02/24 10:34 pregabalin Allergy Severe Shortness Verified 05/02/24 10:34 of breath honey Allergy Intermediate Hives Verified 05/02/24 10:34 adhesive Allergy Mild Blister Verified 05/02/24 10:34 (wipe some plastic tape) oxcarbazepine AdvReac Severe Severe Verified 05/02/24 10:34 [From Trileptal] stomach issues sulfamethoxazole AdvReac Severe Severe Verified 05/02/24 10:34 nausea trimethoprim AdvReac Severe Severe Verified 05/02/24 10:34 nausea buprenorphine [From Suboxone] AdvReac Intermediate Vomiting, Verified 05/02/24 10:34 skin problems clindamycin AdvReac Intermediate Diarrhea Verified 05/02/24 10:34 fluticasone AdvReac Intermediate Severe Verified 05/02/24 10:34 thrush ketorolac AdvReac Intermediate Migraine Verified 05/02/24 10:34 levofloxacin [From Levaquin] AdvReac Intermediate IBS ("can Verified 05/02/24 10:34 only tolerate for 5 days") naloxone [From Suboxone] AdvReac Intermediate Severe Verified 05/02/24 10:34 nausea, SKIN PROBLEMS ondansetron [From Zofran] AdvReac Intermediate Migraine Verified 05/02/24 10:34 saccharin [From Sweeta] AdvReac Intermediate Severe Verified 05/02/24 10:34 vomiting salmeterol AdvReac Intermediate Severe Verified 05/02/24 10:34 thrush cephalexin AdvReac Mild Nausea Verified 05/02/24 10:34 Medications Home Medications Medication Instructions Recorded Confirmed Last Taken Hospital Bed [facility] (Hospital #1 ea 11/14/19 04/23/24 Unknown Bed) blood-glucose meter (OneTouch #1 ea 09/18/20 04/23/24 Unknown Verio Meter) doxycycline hyclate 100 mg capsule 100 mg PO QPM 06/17/21 05/25/24 05/25/24 09:00 lancets 30 gauge (OneTouch Delica #200 ea 06/19/21 04/23/24 Unknown Lancets) albuterol sulfate 2.5 mg/0.5 mL 2.5 mg (0.5 mL) inhalation QID PRN 07/13/21 05/25/24 05/24/24 09:00 solution for nebulization Wheezing #30 ea guaifenesin 1,200 mg tablet, 1,200 mg PO Q12H PRN Nasal 11/11/21 05/25/24 05/25/24 09:00 extended release 12 hr (Mucinex) Congestion CPAP Machine #1 ea 08/02/22 04/23/24 Unknown mometasone 0.1 % topical cream 1 applic topical DAILY PRN 10/22/22 05/25/24 01/13/23 allergic reaction #15 grams aspirin 81 mg capsule 81 mg PO QAM 12/01/22 05/25/24 05/25/24 09:00 cholecalciferol (vitamin D3) 250 500 mcg PO DAILY 01/24/23 05/25/24 05/01/24 05:00 mcg (10,000 unit) tablet cyanocobalamin (vitamin B-12) 500 1,000 mcg (2 x 500 mcg) PO DAILY 03/15/23 05/25/24 05/01/24 05:00 mcg tablet #60 tabs blood sugar diagnostic #100 ea 05/12/23 04/23/24 Unknown Oxygen Home 05/17/23 04/23/24 Unknown adalimumab 40 mg/0.8 mL 40 mg subcut WK 05/17/23 05/25/24 05/02/24 08:00 subcutaneous syringe kit betamethasone dipropionate 0.05 % 1 applic topical BID PRN skin 05/25/23 05/25/24 05/01/24 22:00 topical cream irritation #45 grams duloxetine 60 mg capsule,delayed 60 mg PO BID #60 caps 07/01/23 05/25/24 05/25/24 09:00 release (Cymbalta) metoprolol succinate 25 mg 25 mg PO BID #180 tabs 08/19/23 05/25/24 05/25/24 09:00 tablet,extended release 24 hr clopidogrel 75 mg tablet (Plavix) 75 mg PO QAM 10/26/23 05/25/24 05/25/24 09:00 rimegepant 75 mg disintegrating 75 mg PO .COMPLEX PRN Migraine 10/26/23 05/25/24 Unknown tablet (Nurtec ODT) Headache albuterol sulfate 90 mcg/actuation 2 puff inhalation Q6H PRN Wheezing 11/22/23 05/25/24 05/02/24 08:00 aerosol inhaler #18 grams clobetasol 0.05 % lotion 1 applic topical BID PRN itching 2 11/22/23 05/25/24 Unknown weeks #59 mL clobetasol 0.05 % topical cream 1 applic topical BID PRN rash #60 11/22/23 05/25/24 Unknown grams fluticasone fur. 100 mcg-umeclid 1 inh inhalation QAM #60 ea 11/22/23 05/25/24 05/25/24 09:00 62.5 mcg-vilant 25 mcg inhalat.powder (Trelegy Ellipta) ezetimibe 10 mg tablet (Zetia) 10 mg PO HS #90 tabs 12/09/23 05/25/24 05/24/24 21:00 pravastatin 40 mg tablet 40 mg PO HS #90 tabs 12/09/23 05/25/24 05/24/24 21:00 levothyroxine 200 mcg tablet 200 mcg PO QAM #90 tabs 01/09/24 05/25/24 05/25/24 06:30 trazodone 100 mg tablet 300 mg (3 x 100 mg) PO HS 90 days 01/12/24 05/25/24 05/24/24 21:00 #270 tabs esomeprazole magnesium 40 mg 40 mg PO BID #180 caps 01/26/24 05/25/24 05/25/24 09:00 capsule,delayed release (Nexium) folic acid 1 mg tablet 1 mg PO QAM #90 tabs 01/26/24 05/25/24 05/01/24 05:00 levocetirizine 5 mg tablet (Xyzal) 5 mg PO HS #90 tabs 01/26/24 05/25/24 05/24/24 21:00 silver sulfadiazine 1 % topical 1 applic topical DAILY PRN wound 01/26/24 05/25/24 Unknown cream (Silvadene) healing #50 grams apixaban 5 mg tablet (Eliquis) 5 mg PO BID #90 tabs 02/01/24 05/25/24 05/24/24 21:00 buspirone 10 mg tablet See Rx Instructions .Route 02/01/24 05/25/24 05/25/24 09:00 .COMPLEX #405 tabs gabapentin 800 mg tablet 800 mg PO UD #105 tabs 02/01/24 05/25/24 05/25/24 09:00 sucralfate 1 gram tablet (Carafate) 1 g PO BID PRN Acid Reflux #60 tabs 02/01/24 05/25/24 05/01/24 19:00 epinephrine 0.3 mg/0.3 mL 0.3 mg (0.3 mL) IM Q10M PRN 02/10/24 05/25/24 Unknown injection, auto-injector (EpiPen anaphylaxis #2 ea 2-Manny) nitroglycerin 0.4 mg sublingual 0.4 mg sublingual UD PRN Pain #25 02/10/24 05/25/24 Unknown tablet (Nitrostat) tabs magnesium oxide 400 mg PO TID #270 tabs 02/15/24 05/25/24 05/25/24 09:00 benzonatate 200 mg capsule 200 mg PO BID PRN cough #30 caps 03/19/24 05/25/24 05/02/24 07:30 methocarbamol 500 mg tablet 1,000 mg (2 x 500 mg) PO QID 30 03/27/24 05/25/24 05/25/24 09:00 days #240 tabs semaglutide 1 mg/dose (4 mg/3 mL) 1 mg (0.75 mL) subcut WK #3 mL 04/09/24 05/25/24 05/23/24 09:00 subcutaneous pen injector (Ozempic) montelukast 10 mg tablet 10 mg PO QAM #90 tabs 05/07/24 05/25/24 Unknown (Singulair) oxybutynin chloride 5 mg tablet 5 mg PO BID #30 tabs 05/08/24 05/25/24 Unknown oxycodone 10 mg tablet 10 mg PO Q8H PRN pain, severe #90 05/08/24 05/25/24 Unknown tabs hydroxyzine pamoate 25 mg capsule 25 mg PO TID PRN Anxiety #60 caps 05/15/24 05/25/24 Unknown (Vistaril) Active Medications Generic Name Dose Route Start Last Admin Trade Name Freq PRN Reason Stop Dose Admin Acetaminophen 650 mg 05/25/24 17:08 05/28/24 01:20 Acetaminophen 325 Mg Tab PO 06/24/24 17:07 650 mg Q6H PRN Administration pain(1-4),headache,fever Benzonatate 200 mg 05/25/24 14:10 05/27/24 20:52 Benzonatate 100 Mg Capsule PO 06/24/24 14:09 200 mg BID PRN Administration cough Buspirone HCl 5 mg 05/25/24 14:15 05/28/24 08:11 Buspirone 5 Mg Tab PO 06/24/24 14:14 5 mg 0900,1400 SUZANNE Administration Buspirone HCl 7.5 mg 05/25/24 21:00 05/27/24 20:54 Buspirone 5 Mg Tab PO 06/24/24 20:59 7.5 mg HS SUZANNE Administration Cetirizine HCl 10 mg 05/25/24 22:00 05/27/24 20:53 Cetirizine Hcl 10 Mg Tablet PO 06/24/24 21:59 10 mg HS SUZANNE Administration Doxycycline Hyclate 100 mg 05/25/24 21:00 05/27/24 20:54 Doxycycline Hyclate 100 Mg Cap PO 06/24/24 20:59 100 mg QPM SUZANNE Administration Duloxetine HCl 60 mg 05/25/24 21:00 05/28/24 08:11 Duloxetine Hcl 60 Mg Cap PO 06/24/24 20:59 60 mg BID SUZANNE Administration Fluticasone Furoate 1 puffs 05/26/24 09:00 05/28/24 08:11 Fluticasone Furoate 100mcg 14 Puffs/Inhaler INH 06/25/24 08:59 1 puffs QAM SUZANNE Administration Protocol Gabapentin 800 mg 05/25/24 14:15 05/28/24 08:10 Gabapentin 800 Mg Tab PO 06/24/24 14:14 800 mg 0800,1400 SUZANNE Administration Gabapentin 1,200 mg 05/25/24 21:00 05/27/24 21:33 Gabapentin 400 Mg Cap PO 06/24/24 20:59 1,200 mg HS SUZANNE Administration Hydroxyzine HCl 25 mg 05/25/24 21:45 05/27/24 23:21 Hydroxyzine Hcl 25 Mg Tab PO 06/24/24 21:44 25 mg TID PRN Administration Anxiety Pantoprazole Sodium 40 mg/ 10 mls @ 5 mls/min 05/25/24 21:00 05/28/24 08:14 Syringe IV 06/24/24 20:59 5 mls/min BID SUZANNE Administration Insulin Aspart 0 units 05/25/24 21:00 05/28/24 07:35 Insulin Aspart Per Unit Charge SC 06/24/24 12:14 Not Given ACHS SUZANNE Levothyroxine Sodium 200 mcg 05/26/24 06:30 05/28/24 08:19 Levothyroxine Sodium 200 Mcg Tablet PO 06/25/24 06:29 200 mcg DAILYBB SUZANNE Administration Methocarbamol 1,000 mg 05/25/24 17:00 05/27/24 20:54 Methocarbamol 500 Mg Tablet PO 06/24/24 16:59 1,000 mg QID SUZANNE Administration Metoprolol Succinate 25 mg 05/25/24 21:00 05/28/24 08:40 Metoprolol Succ 25mg Ext Rel Tab PO 06/24/24 20:59 Not Given BID SUZANNE Montelukast Sodium 10 mg 05/26/24 09:00 05/27/24 08:01 Montelukast Sodium 10 Mg Tablet PO 06/25/24 08:59 10 mg QAM SUZANNE Administration Oxybutynin Chloride 5 mg 05/25/24 22:00 05/28/24 08:13 Oxybutynin Chloride 5 Mg Tab PO 06/24/24 21:59 5 mg BID SUZANNE Administration Oxycodone HCl 10 mg 05/25/24 21:45 05/28/24 04:06 Oxycodone Hcl Ir 5 Mg Tab (Immediate Release) PO 06/08/24 21:44 10 mg Q8H PRN Administration pain, severe Pravastatin Sodium 40 mg 05/26/24 21:00 05/27/24 20:55 Pravastatin Sod 40 Mg Tab PO 06/25/24 20:59 40 mg HS SUZANNE Administration Trazodone HCl 300 mg 05/25/24 21:00 05/27/24 20:55 Trazodone Hcl 100 Mg Tab PO 06/24/24 20:59 300 mg HS SUZANNE Administration Umeclidinium/Vilanterol 1 puffs 05/26/24 09:00 05/28/24 08:11 Umeclidinium/Vilanterol 62.5/25mcg 7 Puffs/Inhaler INH 06/25/24 08:59 1 puffs QAM SUZANNE Administration Protocol Past Medical History Medical History Thoracic spinal stenosis Type 2 diabetes mellitus Severe sleep apnea O2 2-5 L at night, no cpap, follows pulm Dr. Dr. Chan Neurogenic claudication Obesity hypoventilation syndrome On home oxygen therapy 2-5 l nc at night Lumbar disc disease Hypothyroidism (acquired) Hypomagnesemia History of left common carotid artery stent placement (01/20/23) Hx of gastritis Failed back syndrome CAD (coronary artery disease) Chronic low back pain Chronic interstitial cystitis Chronic hyponatremia Chronic anticoagulation Chronic antibiotic suppression Cervical radiculopathy limited rom Ataxia Anxiety Allergic rhinitis Paroxysmal atrial fibrillation IBS (irritable bowel syndrome) DJD of both shoulders "bone on bone" unable to have surgery due to blood thinners, has chronic pain both arms Chronic diarrhea Iron deficiency Last iron infusion on 04/20/24 at [facility] Anemia (03/31/24) recently admitted [facility], has had 6 units PRBC's recently. Will have 1 unit PRBC at [facility] on 04/27/[address] Dickson History of dysphagia History of esophageal dilatation (10/31/23) Incontinence sees Dr. Bellamy Insomnia Hx of migraines rare Osteoarthritis Rheumatoid arthritis follows with pancho Gonzales at [facility] Psoriatic arthritis Depression Hyperlipidemia Hypertension GERD (gastroesophageal reflux disease) Diabetic neuropathy COPD (chronic obstructive pulmonary disease) chronic cough, has been using inhalers frequently, follows with Dr. Chan, O2 3-5 L nc at bedtime Clotting disorder per Dr. Dickson, per pt, unsure what type TIA (transient ischemic attack) (2013) 2013 > no residual effects - follows with dr. velázquez History of seizures Age 3 (in setting of fever/measles) > nothing since Meralgia paresthetica of right side Follows with neuro - Dr. Velázquez Mixed hearing loss of right ear No hearing aids History of MA (myocardial infarction) (2009) 2009 > nothing since > no stents Personal history of pulmonary embolism (2013) 2013 > treated with blood thinners - eliquis Personal history of skin cancer s/p excision from RLE Carotid artery narrowing Hx of thyroid cancer (2015) s/p thyroidectomy + XRT (one round) Hx of deep venous thrombosis 2013 > from Thrombophlebitis follows with Dr. Dickson Exercise / Class Metabolic Activity III < 4 Walking/Shop/Light housework Past Family History Family History Mother Diabetes Family history of diabetes mellitus Cardiac disorder Heart trouble Myocardial infarction Renal failure Family history of reaction to anesthesia nausea/vomiting Hypertension Stroke Gallbladder disease Grandfather Family hx of colon cancer Myocardial infarction Father Colon cancer Cardiac disorder Kidney stones Heart trouble Myocardial infarction Degenerative disc disease Lung disease Hypertension Stroke Aunt Colon cancer Diabetes Grandmother (Maternal) Degenerative disc disease Cancer Sister Diabetes Family history of diabetes mellitus Breast cancer Cancer Hypertension Gallbladder disease Family/Other Kidney disease Brother Multiple sclerosis Uncle Myocardial infarction Grandfather (Maternal) Family history of diabetes mellitus Aunt Diabetes Aunt Diabetes Aunt Diabetes Aunt Diabetes Aunt Diabetes Other Dementia Denies family history of Ovarian cancer Prostate cancer Adverse effect of anesthesia Bleeding disorder Past Surgical History Surgical History History of esophagogastroduodenoscopy (EGD) History of right common carotid artery stent placement (12/01/22) Dr Attila Carrington History of tonsillectomy H/O colonoscopy with polypectomy History of cystoscopy Multiple History of incision and drainage (08/11/20) I&D lumbar spine incision w/ placement of abx beads and wound vac - NO CURRENT WOUND VAC/ANTIBIOTIC DAILY (DOXYCYCLINE chronic) H/O cataract extraction R/L S/P dilatation and curettage S/P section x2 History of thyroidectomy, total (2015) History of knee replacement R/L History of placement of ear tubes R/L History of cervical spinal surgery x2; limited rom-right is ok to shoulder, left is better than right History of breast biopsy Left (benign) History of appendectomy History of back surgery x 6 total lumbar (including fusion) History of cardiac cath x7 (09/2012 > no stents)- all at [facility] except for 1 at [facility] (2009, [place])- Follows with [facility] (q 6 months last seen January 2024) Past Anesthesia History No Hx of Anesthesia Complications and No Family Hx of Anesthesia Complications History of PONV No Hx of PONV and No Hx of Motion Sickness Social History Smoking Status: Current every day smoker tobacco type: cigarettes Smoking cigarettes per day: Vapes daily (advised) Do You Dip or Chew Tobacco: No Hx Alcohol Use: No Hx Substance Use: No substance use type: does not use, former substance user and marijuana Physical Exam Vital Signs Last Vital Signs Temp 36.6 C 05/28/24 07:03 Pulse 81 05/28/24 08:24 Resp 18 05/28/24 07:03 BP 85/57 L 05/28/24 08:24 Pulse Ox 97 05/28/24 07:03 O2 Del Method Nasal Cannula 05/28/24 07:03 O2 Flow Rate 5 05/28/24 07:03 Testing Laboratory Results 05/28/24 06:38 05/28/24 06:38 PT 10.3 Seconds (9.0-12.0) 05/28/24 06:38 INR 0.9 (0.9-1.1) 05/28/24 06:38 Urine Color Yellow 05/25/24 11:37 Urine Appearance Clear (Clear) 05/25/24 11:37 Urine pH 7.0 (4.5-7.5) 05/25/24 11:37 Ur Specific [place] 1.016 (1.000-1.030) 05/25/24 11:37 Urine Protein Negative (Negative) 05/25/24 11:37 Urine Glucose (UA) Negative (Negative) 05/25/24 11:37 Urine Ketones Negative (Negative) 05/25/24 11:37 Urine Nitrite Negative (Negative) 05/25/24 11:37 Ur Leukocyte Esterase Trace (Negative) H 05/25/24 11:37 Urine WBC (Auto) 0-5 /hpf (0-5) 05/25/24 11:37 Urine RBC (Auto) 0-2 /hpf (0-2) 05/25/24 11:37 U Hyaline Cast (Auto) 0-2 /lpf (0-2) 05/25/24 11:37 U Epithel Cells (Auto) 0-2 /hpf (0-2) 05/25/24 11:37 Urine Bacteria (Auto) None Seen (None Seen) 05/25/24 11:37 Blood Type A Positive 05/25/24 10:31 Antibody Screen NEGATIVE 05/25/24 10:31 05/28/24 05:07 POC Glucose 129 H Electrocardiogram Date: 05/25/24 Findings: + NSR @ (@ 71;NS ST T changes) Chest X-Ray Date: 03/30/24 Findings: + NAD, + atherosclerosis of thoracic aorta and + other (C spine fusion hardware) Echocardiogram Date: 11/22/18 EF: 55% LV Function: normal RWMA: + none Other Findings: + LVH (mod.) Valvular Disease: + no significant valvular disease
--- NOTE | 2024-05-28 09:19 | Gastroenterology Progress Note ---
Date of Service May 28, 2024 Assessment & Plan (1) Anemia: Plan: 63 year old female admitted with anemia, anticoagulated on plavix and eliquis NPO for EGD evaluation this AM. Maintain NPO status EGD this AM We appreciate assistance in the management of any serological abnormality and corrections to include: hemoglobin >7, INR <2, platelets >50,000, potassium levels >3.5 but <5.3, and sodium levels within 5 points of the reference range prior to endoscopic evaluation. Admission and Anticipated Discharge Date Admission Date: May 25, 2024 Supervising Physician Co-Signing Physician Notes Patient seen and evaluated with GI team patient has not had a bowel movement since last her hemoglobin this morning was 8.6 he took a GLP-1 last week I had a detailed discussion with anesthesia who feel that she would has a risk for aspiration and they would need to intubate in view of this and the fact that her hemoglobin is stable and she had an EGD a few months ago and she has not had a bowel movement for the last 3 days I think the risk of doing an upper endoscopy outweighed the benefits especially for need to intubate her and the risk of aspiration with the GLP-1's the patient is scheduled to undergo capsule endoscopy on the of this month advised her to follow-up with to have her hemoglobin checked in about a week's time also Subjective Pt was seen and evaluated, chart reviewed. NPO for EGD evaluation. Review of Systems Review of Systems: All other findings negative except as noted in HPI. Physical Exam Constitutional: WD/WN, vitals as above Cardiovascular: RRR, no murmur, no edema Chest (Breasts): normal inspection/palpation of breasts Gastrointestinal (Abdomen): normal bowel sounds, soft, nontender, no hepatosplenomegaly Skin: no rashes, warm and dry Results & Data Results & Data Vital Signs (Past 12 Hours) Vital Signs Temp Pulse Pulse Pulse Resp BP BP 05/28/24 08:24 81 85/57 L 111/46 L 05/28/24 07:03 36.6 C 70 18 130/65 05/28/24 05:56 131/70 70/42 L 05/28/24 03:36 36.3 C L 83 22 05/27/24 23:29 36.7 C 83 20 135/68 05/27/24 23:08 82 05/27/24 21:20 Pulse Ox O2 Del Method O2 Flow Rate 05/28/24 08:24 05/28/24 07:03 97 Nasal Cannula 5 05/28/24 05:56 05/28/24 03:36 100 Nasal Cannula 5 05/27/24 23:29 93 Nasal Cannula 5 05/27/24 23:08 05/27/24 21:20 Nasal Cannula 5 Laboratory Results 05/28/24 05/28/24 05/27/24 Range/Units 06:38 05:07 20:27 WBC 6.28 (4.8-10.8) K/ul RBC 3.18 L (4.20-5.40) M/uL Hgb 8.6 L (12.0-16.0) g/dl Hct 28.6 L (37.0-47.0) % MCV 89.9 (80.0-100.0) fL MCH 27.0 (25.0-34.0) pg MCHC 30.1 L (32.0-36.0) g/dL RDW Std Deviation 52.4 H (36.4-46.3) fL RDW Coeff of Donald 16.7 H (11.5-14.5) % Plt Count 285 (130-400) K/uL MPV 9.7 (9.4-12.4) fL PT 10.3 (9.0-12.0) Seconds INR 0.9 (0.9-1.1) Sodium 140 (136-145) mmol/L Potassium 4.3 (3.5-5.1) mmol/L Chloride 103 (98-107) mmol/L Carbon Dioxide 34 H (21-32) mmol/L Anion Gap 3 (3-11) BUN 11 (6-23) mg/dl Creatinine 0.94 (0.6-1.2) mg/dl Est Cr Clr Drug Dosing 77.1 ml/min Est GFR ( Amer) 73.8 ml/min Est GFR (Non-Af Amer) 63.7 ml/min BUN/Creatinine Ratio 11.7 (10-20) Glucose 113 H (70-99(Fasting)) mg/dl POC Glucose 129 H 124 H (70-99) mg/dl Calcium 8.0 L (8.6-10.3) mg/dl Magnesium 1.6 L (1.7-2.4) mg/dl Total Bilirubin 0.3 (0.2-1.0) mg/dl AST 12 L (13-39) U/L ALT 7 (7-52) U/L Alkaline Phosphatase 45 (34-104) U/L Total Protein 5.1 L (6.0-8.3) gm/dl Albumin 3.2 L (3.4-5.0) gm/dl Globulin 1.9 L (2.5-4.0) gm/dl Albumin/Globulin Ratio 1.7 (0.9-2) Blood Type Antibody Screen Crossmatch 05/27/24 05/27/24 05/27/24 Range/Units 17:44 16:19 11:20 WBC (4.8-10.8) K/ul RBC (4.20-5.40) M/uL Hgb 9.8 L (12.0-16.0) g/dl Hct 31.2 L (37.0-47.0) % MCV (80.0-100.0) fL MCH (25.0-34.0) pg MCHC (32.0-36.0) g/dL RDW Std Deviation (36.4-46.3) fL RDW Coeff of Donald (11.5-14.5) % Plt Count (130-400) K/uL MPV (9.4-12.4) fL PT (9.0-12.0) Seconds INR (0.9-1.1) Sodium (136-145) mmol/L Potassium (3.5-5.1) mmol/L Chloride (98-107) mmol/L Carbon Dioxide (21-32) mmol/L Anion Gap (3-11) BUN (6-23) mg/dl Creatinine (0.6-1.2) mg/dl Est Cr Clr Drug Dosing ml/min Est GFR ( Amer) ml/min Est GFR (Non-Af Amer) ml/min BUN/Creatinine Ratio (10-20) Glucose (70-99(Fasting)) mg/dl POC Glucose 108 H 97 (70-99) mg/dl Calcium (8.6-10.3) mg/dl Magnesium (1.7-2.4) mg/dl Total Bilirubin (0.2-1.0) mg/dl AST (13-39) U/L ALT (7-52) U/L Alkaline Phosphatase (34-104) U/L Total Protein (6.0-8.3) gm/dl Albumin (3.4-5.0) gm/dl Globulin (2.5-4.0) gm/dl Albumin/Globulin Ratio (0.9-2) Blood Type Antibody Screen Crossmatch 05/25/24 Range/Units 10:31 WBC (4.8-10.8) K/ul RBC (4.20-5.40) M/uL Hgb (12.0-16.0) g/dl Hct (37.0-47.0) % MCV (80.0-100.0) fL MCH (25.0-34.0) pg MCHC (32.0-36.0) g/dL RDW Std Deviation (36.4-46.3) fL RDW Coeff of Donald (11.5-14.5) % Plt Count (130-400) K/uL MPV (9.4-12.4) fL PT (9.0-12.0) Seconds INR (0.9-1.1) Sodium (136-145) mmol/L Potassium (3.5-5.1) mmol/L Chloride (98-107) mmol/L Carbon Dioxide (21-32) mmol/L Anion Gap (3-11) BUN (6-23) mg/dl Creatinine (0.6-1.2) mg/dl Est Cr Clr Drug Dosing ml/min Est GFR ( Amer) ml/min Est GFR (Non-Af Amer) ml/min BUN/Creatinine Ratio (10-20) Glucose (70-99(Fasting)) mg/dl POC Glucose (70-99) mg/dl Calcium (8.6-10.3) mg/dl Magnesium (1.7-2.4) mg/dl Total Bilirubin (0.2-1.0) mg/dl AST (13-39) U/L ALT (7-52) U/L Alkaline Phosphatase (34-104) U/L Total Protein (6.0-8.3) gm/dl Albumin (3.4-5.0) gm/dl Globulin (2.5-4.0) gm/dl Albumin/Globulin Ratio (0.9-2) Blood Type A Positive Antibody Screen NEGATIVE Crossmatch See Detail PG Care Time/CCT Total # of Minutes Spent Total Time Spent with Patient: Total time spent is greater than 50% in coordination of care (as documented) at patient's floor/unit and/or counseling patient: Coding Level of Care Code 73424 SUB INP/OBS CARE 1/25MIN Diagnoses Anemia D64.9 Iron deficiency anemia type: chronic blood loss (1) Anemia Iron deficiency anemia type: chronic blood loss
[2024-05-28] MEDS: SODIUM CHLORIDE 0.9% 500 ML IV SCH (10:47)
[2024-05-28] MEDS: KETAMINE HCL 10MG/ML SYR ONE (10:47)
[2024-05-28] MEDS ORDERED: RIZATRIPTAN BENZOATE 10 MG TAB PO PRN (13:14)
[2024-05-28] MEDS: FAMOTIDINE 20MG IV PUSH 20 MG/5 ML SYR IV STA (14:09)
[2024-05-28] MEDS: diphenhydrAMINE 50 MG/ML VIAL IV STA (15:07)
[2024-05-28] MEDS ORDERED: NYSTATIN POWDER 15GM BTL EXT PRN (18:53)
[2024-05-28] MEDS: FAMOTIDINE 20MG IV PUSH 20 MG/5 ML SYR IV SCH (20:12)
[2024-05-29 07:23] VITALS: BP 102/71; RESP 17; TEMP 97.7; O2SAT 97
[2024-05-29 07:38] LABS: Hematocrit (blood only) 30.2 % (37.0-47.0); Hemoglobin 9.1 g/dl (12.0-16.0); Mean Corpuscular Hemoglobin 27.4 pg (25.0-34.0); Mean Corpuscular Hgb Conc 30.1 g/dL (32.0-36.0); Mean Platelet Volume 9.4 fL (9.4-12.4); Platelet Count 272 K/uL (130-400); RDW Coefficient of Variation 17.1 % (11.5-14.5); RDW Standard Deviation 52.4 fL (36.4-46.3); Red Blood Count 3.32 M/uL (4.20-5.40); White Blood Count 5.72 K/ul (4.8-10.8)
[2024-05-29 08:04] LABS: BUN Creatinine Ratio 9.8 (10-20); Calcium 8.3 mg/dl (8.6-10.3); Creatinine Clr Calc Pharmacy 71.4 ml/min; Est GFR (African American) 66.8 ml/min; Est GFR (Non-African American) 57.7 ml/min; Magnesium 1.8 mg/dl (1.7-2.4); Potassium 4.7 mmol/L (3.5-5.1)
--- NOTE | 2024-05-29 09:24 | Gastroenterology Progress Note ---
Date of Service May 29, 2024 Assessment & Plan (1) Anemia: Plan: 63 year old female w/ history of paroxysmal atrial fibrillation, bilateral carotid artery stenosis status post bilateral carotid artery stent placement with Dr. Aiken in 2022 with revascularization of left transcarotid stent on 05/02/2024 hypertension, paroxysmal SVT, nonobstructive coronary artery disease, DM type II, history of MSSA infection of previous spinal surgery wound (on chronic doxycycline), severe sleep apnea, hypothyroidism, COPD, and iron deficiency anemia admitted with anemia, anticoagulated on asa, plavix and eliquis - EGD yesterday canceled by anesthesia given recent use of GLP-1 medication - No gross GI bleeding - No GI contraindication to diet - No GI contraindication to discharge - She was encouraged to keep her appointment in May with [facility] for VCE evaluation GI will sign off. Recall as needed. Thank you for allowing us to participate in the care of this patient. Please call with any acute changes, questions or concerns. Please see addendum below with additional recommendation from my supervising physician. I spent a total of 40 minutes on the date of service in review of patient's record, and previously obtained information in person and appropriate medical visit, discussion and education of plan, with patient and/or caregiver, placing orders for tests/referral/procedures as medically necessary and documentation of pertinent clinical information in patient's medical records for their visit today. Admission and Anticipated Discharge Date Admission Date: May 25, 2024 Supervising Physician Co-Signing Physician Notes Patient seen and examined. Case discussed with Mary GIFFORD. Patient has had recent EGD and Colonoscopy for work up of anemia and SB Video Capsule endoscopy already scheduled for later this month. Rec: Supportive care and keep f/u for OP SB capsule study. IP GI Service will sign off. Subjective Pt was seen and evaluated, chart reviewed. EGD canceled by anesthesia related to GLP-1 medication use. Results of EGD/Colonoscopy in 2023 reviewed. She tells me she is scheduled for VCE with [facility] in May. No active GI bleeding. Review of Systems Review of Systems: All other findings negative except as noted in HPI. Physical Exam Constitutional: WD/WN, vitals as above Respiratory: normal respiratory effort Cardiovascular: Rate/Rhythm: regular rate Gastrointestinal (Abdomen): normal bowel sounds, soft, nontender, no hepatosplenomegaly Skin: no rashes, warm and dry Results & Data Results & Data Vital Signs (Past 12 Hours) Vital Signs Temp Pulse Resp BP BP Pulse Ox O2 Del Method 05/29/24 07:22 36.5 C 78 17 102/71 97 Nasal Cannula 05/29/24 02:47 36.7 C 63 18 154/75 H 98 Room Air 05/28/24 22:41 Nasal Cannula 05/28/24 22:36 36.4 C L 76 18 152/74 H 98 Nasal Cannula O2 Flow Rate 05/29/24 07:22 5 05/29/24 02:47 05/28/24 22:41 5 05/28/24 22:36 5 PG Care Time/CCT Total # of Minutes Spent Total Time Spent with Patient: Total time spent is greater than 50% in coordination of care (as documented) at patient's floor/unit and/or counseling patient: Coding Level of Care Code 77528 SUB INP/OBS CARE 2/35MIN Diagnoses Anemia D64.9 Iron deficiency anemia type: chronic blood loss (1) Anemia Iron deficiency anemia type: chronic blood loss
[2024-05-29 10:03] VITALS: PULSE 71
[2024-05-29] MEDS: PNEUMOCOCCAL VACCINE (PCV20) 20-VAL CONJ-DIP CRM/PF 0.5 ML SYR IM ONE (13:07)
--- NOTE | 2024-05-29 15:58 | Discharge Summary ---
Discharge Summary Date of Service May 29, 2024 Principal Dx & Hospital Course #1 = Principal Diagnosis (1) Anemia: Concern for anemia from acute blood loss patient has been on dual antiplatelet therapy plus anticoagulation. Subsequent concern for endoscopy did not outweigh the risk given her recent Ozempic administration and endoscopy is not performed. stable at time of discharge she is scheduled for capsule outpatient enteroscopy. (2) Bilateral carotid artery stenosis: Patient had previously undergone bilateral carotid artery stent placement Dr. Sheldon 2022, had recent revascularization of stenosed left carotid artery stent last month with Dr. Sheldon Has been on aspirin/Plavix in addition to her Eliquis restart Plavix at discharge , aspirin in 3 days and apixiban in a week (3) AF (paroxysmal atrial fibrillation): Currently in normal sinus rhythm-Continue metoprolol restart Eliquis in a week (4) COPD (chronic obstructive pulmonary disease): Currently stable on room air with mild expiratory wheezing States that she is currently vaping and not smoking cigarettes, still recommended she quit vaping as well States that she uses 3 L as needed O2 during the day Will continue for home breathing treatments (5) Type 2 diabetes mellitus: resume semaglutide (6) Chronic antibiotic suppression: Continue doxycycline (7) Severe sleep apnea: Patient uses 5 L NC HS, does not use CPAP Plan Patient complaining of what seems to be a migraine with aura using Maxalt therapy Rx at dc Patient has diffuse pruritus attempting to quell this with antihistamines including Pepcid Notes For Next Care Provider eval for hgb stability with restarting aspirin/plavix/eliquis Admission HPI Per Admitting Provider Leona is a 63-year-old female with a past medical history significant for paroxysmal atrial fibrillation (on Eliquis), bilateral carotid artery stenosis status post bilateral carotid artery stent placement with Dr. 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 Patient was last admitted to [facility] in March of this past year for anemia with hemoglobin of 6.3. She received 2 units packed red blood cells while her Eliquis, aspirin, and Plavix were held. She was evaluated by gastroenterology who recommended outpatient capsule endoscopy due to patient remaining stable. She was restarted on her Eliquis, aspirin, and Plavix at the time of discharge. Patient remained stable while in the ED. Labs were signif icant for hemoglobin of 5.2, hematocrit of 18.3, MCHC of 28. Patient reported to the ED staff that she had been experiencing bright red blood per the rectum but thought this was due to hemorrhoids. Prior to admission the patient was consented for blood and ordered an initial 2 units of PRBCs. Patient was sitting in bed in no acute distress at time of exam, she is significantly pale and mildly short of breath after walking from the bathroom to her bed. States that she noticed bright red blood in her stool starting 05/24/2024 along with few clots. Has been experiencing mild left sided abdominal pain since this occurred on 05/24/2024. Confirms that he had been taking her Eliquis, aspirin, and Plavix as prescribed since her left carotid revascularization. She did have her a.m. doses of aspirin/Plavix but did not take Eliquis today has been experiencing mild nausea but no recent vomiting. No recent fever, chills, chest pain, cough, dysuria/hematuria, lower extremity swelling, and recent trauma. Confirm she is a full code and would want her to make medical decisions for her if she cannot make them herself. Please refer to Dr. Escobar's attestation for any changes to the treatment plan Discharge Exam stable for dc lungs clear car with rate control Discharge Plan Discharge Items Patient Disposition: Home - Self-Care Reason For Visit: SYMPTOMATIC ANEMIA, GI BLEED Discharge Diagnosis: Anemia with transfusion of blood iron deficiency with iron infusion pruritis Activity: Resume your previous activity Non-emergency contact: Primary Care Provider and Cryolite Recovery Operator Call non-emergency contact if: your symptoms worsen Follow-up/Referrals: Gerda Johnson DO [Primary Care Provider] - 06/01/24 9:40 am (Hospital follow up scheduled June 01 at 9:[address] Alex Amato's PA-C.) Randolph,Ankur V., DO [Outside Practitioners] - Maksim Alonzo MD [Physician] - Diet: Carb Consistent or DM2 Addtl Attending Provider Instructions: please follow up with Dr Johnson and Randolph for further blood work to watch your blood counts and iron level please follow up with GI medicine for further workup of your anemia Pending Studies at Discharge: No Stand-Alone Forms: [employer], Smoking Cessation Medications and DC Order Prescriptions: New famotidine [Pepcid] 40 mg tablet 40 mg PO BID 56 Days Qty: 112 0RF rizatriptan [Maxalt] 10 mg tablet See Rx Instructions .ROUTE .COMPLEX Qty: 10 0RF Rx Instructions: take 1 tab at onset of headache; if no relief may repeat 1 tab after at least 2 hrs; max = 3 tabs/24 hr Continued (DME) Hospital Bed Mis See Rx Instructions .ROUTE .MEDSUPPLY Qty: 1 0RF Rx Instructions: Dx: M19.90, M96.1, M51.9, M48.02, M48.04, J44.9 (DME) blood-glucose meter [OneTouch Verio Meter] [facility] [place] Rx Instructions .ROUTE .MEDSUPPLY Qty: 1 0RF Rx Instructions: As directed (DME) lancets [OneTouch Delica Lancets] 30 gauge [facility] [place] See Dose Instructions .ROUTE .MEDSUPPLY Qty: 200 4RF Dose Instruction: As directed Rx Instructions: testing four times per day. albuterol sulfate 2.5 mg/0.5 mL solution for nebulization 2.5 mg INHALATION QID PRN (Reason: Wheezing) Qty: 30 5RF mometasone 0.1 % cream 1 applic topical DAILY PRN (Reason: allergic reaction) Qty: 15 3RF Rx Instructions: Apply to affected ear once daily as needed for itching cholecalciferol (vitamin D3) 250 mcg (10,000 unit) tablet 500 mcg PO DAILY cyanocobalamin (vitamin B-12) 500 mcg tablet 1,000 mcg PO DAILY Qty: 60 5RF (DME) blood sugar diagnostic Strip See Dose Instructions .ROUTE .MEDSUPPLY Qty: 100 5RF Dose Instruction: As directed Rx Instructions: testing four times per day. duloxetine [Cymbalta] 60 mg capsule,delayed release(DR/EC) 60 mg PO BID Qty: 60 11RF pravastatin 40 mg tablet 40 mg PO HS Qty: 90 3RF ezetimibe [Zetia] 10 mg tablet 10 mg PO HS Qty: 90 3RF levothyroxine 200 mcg tablet 200 mcg PO QAM Qty: 90 1RF Rx Instructions: please change to 90 day supply trazodone 100 mg tablet 300 mg PO HS 90 Days Qty: 270 2RF silver sulfadiazine [Silvadene] 1 % cream 1 applic topical DAILY PRN (Reason: wound healing) Qty: 50 1RF Patient Comments: finished with this 10/26/23 Rx Instructions: apply a 1.5 mm thickness esomeprazole magnesium [Nexium] 40 mg capsule,delayed release(DR/EC) 40 mg PO BID Qty: 180 1RF levocetirizine [Xyzal] 5 mg tablet 5 mg PO HS Qty: 90 1RF folic acid 1 mg tablet 1 mg PO QAM Qty: 90 3RF gabapentin 800 mg tablet 800 mg PO UD Qty: 105 3RF Rx Instructions: 800 mg PO 1 tablet QAM, 1 tablet QPM, and 1.5 tablet HS; (VERIFIED PAT 11/24/22) sucralfate [Carafate] 1 gram tablet 1 g PO BID PRN (Reason: Acid Reflux) Qty: 60 0RF buspirone 10 mg tablet See Rx Instructions .ROUTE .COMPLEX Qty: 405 1RF Rx Instructions: Take 1 tab PO in AM and afternoon, 1.5 tabs PO QHS nitroglycerin [Nitrostat] 0.4 mg tablet, sublingual 0.4 mg Sublingual UD PRN (Reason: Pain) Qty: 25 5RF Patient Comments: HAVEN'T USED IN AGES epinephrine [EpiPen 2-Manny] 0.3 mg/0.3 mL auto-injector 0.3 mg IM Q10M PRN (Reason: anaphylaxis) Qty: 2 1RF Rx Instructions: for 2 doses magnesium oxide 400 mg magnesium tablet 400 mg PO TID Qty: 270 1RF benzonatate 200 mg capsule 200 mg PO BID PRN (Reason: cough) Qty: 30 4RF Ozempic 1 mg/dose (4 mg/3 mL) pen injector 1 mg subcut WK Qty: 3 3RF Patient Comments: takes on wednesdays > last dose 10/19/23 Rx Instructions: WEDNESDAYS montelukast [Singulair] 10 mg tablet 10 mg PO QAM Qty: 90 1RF oxycodone 10 mg tablet 10 mg PO Q8H PRN (Reason: pain, severe) Qty: 90 0RF Hold Instructions: Hold refill Oxycodone. UA Neg despite #90 tabs monthly. oxybutynin chloride 5 mg tablet 5 mg PO BID Qty: 30 2RF hydroxyzine pamoate [Vistaril] 25 mg capsule 25 mg PO TID PRN (Reason: Anxiety) Qty: 60 5RF (DME) Oxygen Home Liters Per Minute See Rx Instructions .ROUTE .MEDSUPPLY Dose Instruction: As directed Rx Instructions: 3LPM via NC @ HS. doxycycline hyclate 100 mg capsule 100 mg PO QPM (DME) CPAP Machine Misc .Route Qty: 1 0RF Rx Instructions: CPAP 10 cm of water with oxygen bleed at 1 L/min, mask fit patient comfort, heated modification, compliance download capabilities, DME: [facility] medical equipment adalimumab 40 mg/0.8 mL syringe kit 40 mg subcut WK Rx Instructions: every tuesday metoprolol succinate 25 mg tablet extended release 24 hr 25 mg PO BID Qty: 180 3RF Hold Instructions: hypotensive betamethasone dipropionate 0.05 % cream 1 applic topical BID PRN (Reason: skin irritation) Qty: 45 0RF clobetasol 0.05 % lotion 1 applic TOP BID PRN (Reason: itching) 14 Days Qty: 59 3RF clobetasol 0.05 % cream 1 applic topical BID PRN (Reason: rash) Qty: 60 1RF Trelegy Ellipta 100-62.5-25 mcg blister with device 1 inh INH QAM Qty: 60 5RF albuterol sulfate 90 mcg/actuation HFA aerosol inhaler 2 puff INHALATION Q6H PRN (Reason: Wheezing) Qty: 18 5RF methocarbamol 500 mg tablet 1,000 mg PO QID 30 Days Qty: 240 1RF guaifenesin [Mucinex] 1,200 mg Tablet Extended Release 12hr 1,200 mg PO Q12H PRN (Reason: Nasal Congestion) clopidogrel [Plavix] 75 mg tablet 75 mg PO QAM Nurtec ODT 75 mg tablet,disintegrating 75 mg PO .COMPLEX PRN (Reason: Migraine Headache) Rx Instructions: 75 mg orally PRN at onset of migraine. 1 in 24 hours.; limit 2-3 days a week Held Eliquis 5 mg tablet 5 mg PO BID Qty: 90 1RF Hold Instructions: Resume on 06/05/24. Patient Comments: TO BE STOPPED DAY BEFORE SURGERY PER DR SHELDON , TAKE NONE ON THE / DR PATTERSON IS ALSO AWARE aspirin 81 mg Capsule 81 mg PO QAM Hold Instructions: Resume on 06/01/24. Discharge Orders: Discharge Order (Routine); Ordered 05/29/24 Ordered By: Cody Villasenor Admission Data Admit Date/Time: 05/25/24 11:44 Attending Provider: Cody Villasenor Admit Provider: Frank Escobar Primary Care Provider: eGrda Johnson Other Providers: Frank Escobar; Maksim Alonzo Other Interventions: Discharge Summary Assessment (RN) Last Done: 05/29/24 10:01 Hospital Stay Data Consultations 05/25/24 11:36 ED Decision to Admit Stat 05/25/24 11:47 Consult Gastroenterology Routine Procedures Performed Operation Date: 05/28/24 16:30 <No data on this case meets the specified criteria> Diagnostic Imagining Performed 05/25/24 11:46 CT Abd and Pelvis [CT abd pelvis IV con only] Urgent Pending Results Patient Have Any Pending Studies at Discharge: No Discharge Instructions Given to Patient (Per Discharging Provider) please follow up with Dr Costello for further blood work to watch your blood counts and iron level please follow up with GI medicine for further workup of your anemia Total Time Total Time Spent Total Time Spent (In Minutes): It required greater than 30 minutes to prepare this patient for discharge. Coding Level of Care Code 37341 INP/OBS DISCH >30 MIN Diagnoses Anemia D64.9 Iron deficiency anemia type: chronic blood loss Bilateral carotid artery stenosis I65.23 AF (paroxysmal atrial fibrillation) I48.0 COPD (chronic obstructive pulmonary disease) J44.9 Type 2 diabetes mellitus E11.9 Chronic antibiotic suppression Z79.2 Severe sleep apnea G47.30
== END 2024-05-29 13:08 | disposition home or self-care (01) | DRG 812 ==
LOC: ED 10:03 → 2S 11:44 → SUATTDRO 11:44 → 2S 13:35

== ENCOUNTER 2025-07-16 10:24 | Observation (INO) ==
[2025-07-16 11:26] LABS: Alanine Aminotransferase 7 U/L (7-52); Albumin Globulin Ratio 1.0 (0.9-2); Albumin Level 2.9 gm/dl (3.4-5.0); Alkaline Phosphatase 46 U/L (34-104); Anion Gap 2 (3-11); Bilirubin,Total 0.2 mg/dl (0.2-1.0); Blood Urea Nitrogen 15 mg/dl (6-23); Calcium 8.0 mg/dl (8.6-10.3); Carbon Dioxide 35 mmol/L (21-32); Chloride 98 mmol/L (98-107); Globulin 2.8 gm/dl (2.5-4.0); Glucose 136 mg/dl (70-99(Fasting)); Potassium 4.5 mmol/L (3.5-5.1); Sodium 135 mmol/L (136-145); Total Protein 5.7 gm/dl (6.0-8.3)
[2025-07-16 11:27] LABS: INR 1.0 (0.9-1.1); Partial Thromboplastin Time 29 Seconds (21-31); Prothrombin Time 10.6 Seconds (9.0-12.0)
--- NOTE | 2025-07-16 11:30 | XRay Report ---
XR chest 1V not portable CLINICAL HISTORY: Cough, burning in chest COMPARISON STUDY: 03/30/2024 FINDINGS: Right chest port tip is in the region of the brachiocephalic SVC junction. There is moderat e cardiomegaly with increased pulmonary vascular congestion. There is increased hazy opacity in the l rebekah bases. No pneumothorax. IMPRESSION: 1. CHF. 2. Increased lung base opacity could represent atelectasis, pneumonia, or small pleural effusions. ACT 112: Negative or not required by law. Electronically signed by: Raffi Champion M.D. 07/16/2025 11:29 AM
[2025-07-16 11:38] LABS: Hematocrit (blood only) 21.8 % (37.0-47.0); Hemoglobin 6.2 g/dl (12.0-16.0); Mean Corpuscular Hemoglobin 25.0 pg (25.0-34.0); Mean Corpuscular Volume 87.9 fL (80.0-100.0); Platelet Count 219 K/uL (130-400); RDW Standard Deviation 51.4 fL (36.4-46.3); Red Blood Count 2.48 M/uL (4.20-5.40); White Blood Count 8.32 K/ul (4.8-10.8)
[2025-07-16 11:40] LABS: Hypochromasia Present; Immature Granulocytes # (auto) 0.05 K/uL (0.01-0.20); Immature Granulocytes % (auto) 0.6 %; Polychromasia 1+
--- NOTE | 2025-07-16 11:41 | Emergency Department Note ---
Impression & Plan Pulmonary edema, Anemia, Bilateral edema of lower extremity, Elevated troponin I level ED Provider Note NAME: YUMI ST AGE: 64 SEX: F : 1960 ARRIVES VIA: Walk-In INFORMANT: Patient, ED PROVIDER(S): Ajay Faye DO CHIEF COMPLAINT: Shortness of breath HPI: The patient is a 64-year-old female who presented to the emergency department with multiple complaints. The patient has been complaining of shortness of breath orthopnea as well as generalized weakness. She denies having any rectal bleeding. The patient denies having any fevers. She has noticed some swelling in both legs especially on the right. The patient does take blood thinners. She has a history of iron deficiency anemia as well as COPD. The patient also has atrial fibrillation. The patient denies having any recent trauma. ROS: See above HPI for pertinent positives & negatives. A total of 10 systems reviewed and were otherwise negative. PAST MEDICAL HISTORY: See Below PAST SURGICAL HISTORY: See Below FAMILY HISTORY: See Below SOCIAL HISTORY: See Below HOME MEDICATIONS: See Below ALLERGIES: See Below VITALS: See Below PHYSICAL EXAMINATION: GENERAL: Patient is awake alert in no acute distress patient is resting comfortably and showing no signs of anxiety EYES: The conjunctivae are clear. The pupils are round and reactive. EARS, NOSE, MOUTH AND THROAT: The nose is without any evidence of any deformity. NECK: The neck is nontender and supple. RESPIRATORY: Diminished breath sounds are noted both bases. There were rales on the bases. CARDIOVASCULAR: Regular rate and rhythm noted there no murmurs rubs or gallops normal S1 normal S2. GASTROINTESTINAL: The abdomen is soft. Abdomen is nontender. MUSCULOSKELETAL/EXTREMITIES: There is no evidence of gross deformity full range of motion is noted in the hips and shoulders. SKIN: Pedal edema is noted bilaterally. Skin is warm and dry. NEUROLOGIC: Patient is awake alert and oriented x3 MEDICAL DECISION MAKING: The patient is a 64-year-old female who presented to the emergency department for an evaluation. The patient started noticing leg swelling as well as difficulty breathing. She has a history of anemia in the past. She is normally managed with blood transfusion. She has had a complete workup of her GI tract and no definite cause for her anemia was felt to be due to a GI bleeding. She denies any black or tarry stool at this time. I discussed the patient's laboratory and radiographic studies with her. She was started on a blood transfusion in the emergency department. She was also treated with IV Lasix in the emergency department. She appears to be in pulmonary edema. This is likely secondary to the severity of her anemia. Given the patient's findings I discussed her condition with the on-call [facility]. Patient encouraged to return immediately if symptoms change or worsen the need arises. Triage Nursing notes reviewed. Prior medical records reviewed Vital Signs: reviewed and remarkable for no significant abnormalities Differential diagnosis: Reactive airway disease, pneumonia, pneumothorax, COPD, CHF, infections, cardiac ischemia, pulmonary embolism, musculoskeletal, gastrointestinal, as well as other pathologies. ER treatment provided: See below Diagnostics interpreted by me: ECG: EKG was obtained in the emergency department. My interpretation is normal sinus rhythm at 69 bpm. There is no ectopy. Nonspecific ST depressions were noted. This was compared to a tracing from May 25, 2024. No changes were noted. Cardiac Monitoring: An order was placed for continuous cardiac monitoring. The monitor shows a rate of 74 bpm with sinus rhythm. Laboratory studies: As stated above and show below. Imaging studies: See below. Radiographic imaging was reviewed by myself Consultation(s): I discussed this case with Dr. Fari who is on-call for the [facility] [employer] [facility] group. ED COURSE: Procedures: none Critical Care: I have personally spent greater than 45 minutes of critical care time in the direct management of this patient. This includes bedside care, interpretation of diagnostic studies, and testing, discussion with consultants, patient, and family members, and other required patient management activities. This 45 minutes is in excess of all separately billable procedures. Past Med/Surg History Problem List (Updated 07/16/25 @ 12:40 by Ajay Faye DO) Elevated troponin I level (Acute) Bilateral edema of lower extremity (Acute) Anemia (Acute) Pulmonary edema (Acute) Lumbar spinal stenosis Smoking history Dyspnea Dysphagia Allergy to multiple antibiotics Memory loss History of back surgery x 6 total lumbar (including fusion) Poor venous access on examination Venous (peripheral) insufficiency Hx of deep venous thrombosis 2013 > from Thrombophlebitis follows with Dr. Dickson IBS (irritable bowel syndrome) Personal history of pulmonary embolism (2013) 2014 > treated with blood thinners - eliquis Paroxysmal atrial fibrillation Hx of thyroid cancer (2016) s/p thyroidectomy + XRT (one round) Iron deficiency Insomnia Migraines History of left common carotid artery stent placement (01/20/23) Stenosis of left internal carotid artery History of TIA (transient ischemic attack) Bilateral carotid artery stenosis Morbid obesity BMI 43.2 Chronic hyponatremia Incontinence Severe sleep apnea 3L oxygen via N/C- (WAITING ON CPAP DEVICE) Follows with pulm Ulnar neuropathy at elbow of left upper extremity Cervical radiculopathy Esophageal dysphagia Ataxia Chronic antibiotic suppression Subjective memory complaints Diabetic peripheral neuropathy Anemia Chronic anticoagulation (Acute) " CLOTTING PROBLEM' x 5 YRS F/U DR PATTERSON Lumbar spondylosis Chronic low back pain Gastritis Hypomagnesemia (Acute) Chronic diarrhea Anxiety AF (paroxysmal atrial fibrillation) Takes Eliquis, follows with Dr. Plaza, no pacer NO HX CARDIOVERSION Thoracic spinal stenosis Dysfunction of right eustachian tube Dermatitis of both ear canals Obesity hypoventilation syndrome Degenerative joint disease of shoulder BILATERAL Hypothyroidism (acquired) S/p thyroidectomy 2015 (final pathology negative for malignancy) Psoriatic arthritis No meds at this time- follows with rheum Sensorineural hearing loss (SNHL) of both ears (Chronic) Hypertension GERD (gastroesophageal reflux disease) Degenerative cervical spinal stenosis (Chronic) COPD (chronic obstructive pulmonary disease) rare res inh use per pt > more fall season Chronic interstitial cystitis Allergic rhinitis Type 2 diabetes mellitus Pulsatile tinnitus (Chronic) Lumbar disc disease (Chronic) Failed back syndrome (Chronic) Depression Coronary artery disease Minor nonobstructive CAD per September 2012 cath per cardio records No hx stents or angioplasty Osteoarthritis (Chronic) Hyperlipidemia controlled per pt On home oxygen therapy (Chronic) 5L/MIN NC HS Medical History Left leg weakness GIB (gastrointestinal bleeding) Bright red blood per rectum Neurogenic claudication due to lumbar spinal stenosis History of left common carotid artery stent placement (01/20/23) Hx of gastritis Failed back syndrome Chronic low back pain Chronic hyponatremia DJD of both shoulders "bone on bone" unable to have surgery due to blood thinners, has chronic pain both arms History of esophageal dilatation (10/31/23) Hx of migraines rare Rheumatoid arthritis follows with pancho Gonzales at [facility] Clotting disorder per Dr. Dickson, per pt, unsure what type TIA (transient ischemic attack) (2013) 2013 > no residual effects - follows with dr. velázquez History of seizures Age 3 (in setting of fever/measles) > nothing since Meralgia paresthetica of right side Follows with neuro - Dr. Velázquez History of OR (myocardial infarction) (2009) 2009 > nothing since > no stents Personal history of skin cancer s/p excision from RLE Surgical History H/O transcarotid artery revascularization (TCAR) (05/02/24) Redo L TCAR History of esophagogastroduodenoscopy (EGD) History of right common carotid artery stent placement (12/01/22) bilat TCAR, Dr Aiken History of tonsillectomy H/O colonoscopy with polypectomy History of cystoscopy Multiple History of incision and drainage (08/11/20) I&D lumbar spine incision w/ placement of abx beads and wound vac - NO CURRENT WOUND VAC/ANTIBIOTIC DAILY (DOXYCYCLINE chronic) H/O cataract extraction R/L S/P dilatation and curettage S/P section x2 History of thyroidectomy, total (2015) History of knee replacement R/L History of placement of ear tubes R/L History of cervical spinal surgery x2; limited rom-right is ok to shoulder, left is better than right History of breast biopsy Left (benign) History of appendectomy History of cardiac cath x7 (09/2012 > no stents)- all at [facility] except for 1 at [facility] (2009, OR)- Follows with [facility] (q 6 months last seen January 2024) Family History Mother Diabetes Family history of diabetes mellitus Cardiac disorder Heart trouble Myocardial infarction Renal failure Family history of reaction to anesthesia nausea/vomiting Hypertension Stroke Gallbladder disease Grandfather Family hx of colon cancer Myocardial infarction Father Colon cancer Cardiac disorder Kidney stones Heart trouble Myocardial infarction Degenerative disc disease Lung disease Hypertension Stroke Rheumatoid arthritis Aunt Colon cancer Diabetes Grandmother (Maternal) Degenerative disc disease Cancer Rheumatoid arthritis Sister Diabetes Family history of diabetes mellitus Breast cancer Cancer Hypertension Gallbladder disease Rheumatoid arthritis Family/Other Kidney disease Brother Multiple sclerosis Uncle Myocardial infarction Grandfather (Maternal) Family history of diabetes mellitus Aunt Diabetes Aunt Diabetes Aunt Diabetes Aunt Diabetes Aunt Diabetes Other Dementia Denies family history of Ovarian cancer Prostate cancer Adverse effect of anesthesia Bleeding disorder Social History Smoking Status: Current every day smoker Tobacco Type: E-cigarettes / Vaping Age Started Using Tobacco: 12; packs per day: 0.5; Cigarettes Per Day: Vapes daily (advised); Second Hand Exposure: No; Do You Dip or Chew Tobacco: No; Hx Alcohol Use: No Hx Substance Use: Yes Preferred Language: American Communication Ability: Effective Visual Impairment: Limited Hearing Ability: Hard of Hearing Put In Beat Adjuster Required: Yes Beliefs That Will Affect Care: None marital status: Current Living Situation: Spouse Current Living Situation Comment: AND SON current occupational status: unemployed How many Children do You have: 2 Feels Safe at Home: Yes Childhood Exposure to Second-Hand Smoke: Yes (father smoked) Diet: regular Diet Comment: regular caffeine: Yes during the past year weight has: increased > 10 lbs Dental Care, Regularly: Yes Physical Activity Frequency: Does not Exercise Physical Activity Frequency Comment: LIMITED BY PHYSICAL CONDITION Seatbelt Use: always Sunscreen Use: Yes Assistive Devices: Cane Allergies Allergies Allergy/AdvReac Type Severity Reaction Status Date / Time bee pollen Allergy Severe Anaphylaxis Verified 06/25/25 10:42 fentanyl Allergy Severe Severe Verified 06/25/25 10:42 sedation, resp depression (only with patches) Penicillins Allergy Severe Anaphylaxis Verified 06/25/25 10:42 pregabalin Allergy Severe Shortness Verified 06/25/25 10:42 of breath honey Allergy Intermediate Hives Verified 06/25/25 10:42 adhesive Allergy Mild Blister Verified 06/25/25 10:42 (wipe some plastic tape) oxcarbazepine AdvReac Severe Severe Verified 06/25/25 10:42 [From Trileptal] stomach issues sulfamethoxazole AdvReac Severe Severe Verified 06/25/25 10:42 nausea trimethoprim AdvReac Severe Severe Verified 06/25/25 10:42 nausea buprenorphine [From Suboxone] AdvReac Intermediate Vomiting, Verified 06/25/25 10:42 skin problems clindamycin AdvReac Intermediate Diarrhea Verified 06/25/25 10:42 fluticasone AdvReac Intermediate Severe Verified 06/25/25 10:42 thrush ketorolac AdvReac Intermediate Migraine Verified 06/25/25 10:42 levofloxacin [From Levaquin] AdvReac Intermediate IBS ("can Verified 06/25/25 10:42 only tolerate for 5 days") naloxone [From Suboxone] AdvReac Intermediate Severe Verified 06/25/25 10:42 nausea, SKIN PROBLEMS ondansetron [From Zofran] AdvReac Intermediate Migraine Verified 06/25/25 10:42 saccharin [From Sweeta] AdvReac Intermediate Severe Verified 06/25/25 10:42 vomiting salmeterol AdvReac Intermediate Severe Verified 06/25/25 10:42 thrush cephalexin AdvReac Mild Nausea Verified 06/25/25 10:42 Home Meds Home Medications Medication Instructions Recorded Confirmed doxycycline hyclate 100 mg capsule 100 mg PO QPM 06/17/21 07/16/25 guaifenesin 1,200 mg tablet, 1,200 mg PO Q12H PRN Nasal 11/11/21 07/16/25 extended release 12 hr (Mucinex) Congestion cholecalciferol (vitamin D3) 250 500 mcg PO DAILY 01/24/23 07/16/25 mcg (10,000 unit) tablet Oxygen Home 05/17/23 06/25/25 clopidogrel 75 mg tablet (Plavix) 75 mg PO QAM 10/26/23 07/16/25 chlorzoxazone 500 mg tablet 500 mg PO TID PRN Muscle Spasm 06/10/25 07/16/25 oxycodone 10 mg tablet 10 mg PO Q6H PRN pain, severe 06/25/25 07/16/25 betamethasone dipropionate 0.05 % 0 applic topical BID PRN skin 07/16/25 07/16/25 topical cream irritation buspirone 10 mg tablet 10 mg PO UD 07/16/25 07/16/25 miscellaneous medical supply 07/16/25 07/16/25 nitroglycerin 0.4 mg sublingual 0 mg sublingual UD PRN Pain 07/16/25 07/16/25 tablet (Nitrostat) nystatin 100,000 unit/gram topical 0 applic topical BID PRN rash 07/16/25 07/16/25 ointment nystatin 100,000 unit/mL oral 0 unit PO UD 07/16/25 07/16/25 suspension Previous Rx's Medication Instructions Recorded Hospital Bed Homecare (Hospital #1 ea 11/14/19 Bed) blood-glucose meter (OneTouch #1 ea 09/18/20 Verio Meter) lancets 30 gauge (OneTouch Delica #200 ea 06/19/21 Lancets) cyanocobalamin (vitamin B-12) 500 1,000 mcg (2 x 500 mcg) PO DAILY 03/15/23 mcg tablet #60 tabs silver sulfadiazine 1 % topical 1 applic topical DAILY PRN wound 01/26/24 cream (Silvadene) healing #50 grams oxybutynin chloride 5 mg tablet 5 mg PO TID #90 tabs 08/14/24 metoprolol succinate 25 mg 25 mg PO BID #180 tabs 08/30/24 tablet,extended release 24 hr blood sugar diagnostic #100 ea 12/03/24 mometasone 0.1 % topical cream 1 applic topical DAILY PRN 12/19/24 allergic reaction #15 grams ezetimibe 10 mg tablet (Zetia) 10 mg PO HS #90 tabs 12/28/24 sucralfate 1 gram tablet (Carafate) 1 g PO BID PRN Acid Reflux #60 tabs 01/14/25 clobetasol 0.05 % topical cream 1 applic topical BID PRN rash #45 01/17/25 grams esomeprazole magnesium 40 mg 40 mg PO BID #180 caps 01/29/25 capsule,delayed release (Nexium) folic acid 1 mg tablet 1 mg PO QAM #90 tabs 01/29/25 levocetirizine 5 mg tablet (Xyzal) 5 mg PO HS #90 tabs 01/29/25 magnesium oxide 400 mg PO TID #270 tabs 02/12/25 adalimumab-adbm 40 mg/0.4 mL 40 mg (0.4 mL) subcut .WEEKLY #4 ea 02/15/25 subcutaneous pen kit (Cyltezo(CF) Pen) albuterol sulfate 90 mcg/actuation 2 puff inhalation Q6H PRN Wheezing 02/18/25 aerosol inhaler #18 grams levothyroxine 200 mcg tablet 200 mcg PO QAM #90 tabs 02/20/25 rizatriptan 10 mg tablet (Maxalt) See Rx Instructions PO .COMPLEX 04/17/25 #10 tabs Batteries for scooter #1 box 04/29/25 pravastatin 80 mg tablet 80 mg PO DAILY #30 tabs 05/02/25 hydroxyzine pamoate 25 mg capsule 25 mg PO TID PRN Anxiety #60 caps 05/06/25 (Vistaril) gabapentin 800 mg tablet 800 mg PO UD #105 tabs 05/08/25 montelukast 10 mg tablet 10 mg PO QAM #90 tabs 05/08/25 (Singulair) benzonatate 200 mg capsule 200 mg PO BID PRN cough #30 caps 05/09/25 ofloxacin 0.3 % ear drops 10 drp otic (ear) DAILY Bilateral 05/23/25 ears 7 days #10 mL CPAP Machine #1 ea 06/04/25 CPAP Supplies #1 ea 06/04/25 fluticasone fur. 200 mcg-umeclid 1 inh inhalation DAILY #60 ea 06/04/25 62.5 mcg-vilant 25 mcg inhalat.powder (Trelegy Ellipta) ipratropium 0.5 mg-albuterol 3 mg 3 ml inhalation Q2H #180 mL 06/04/25 (2.5 mg base)/3 mL nebulization soln epinephrine 0.3 mg/0.3 mL 0.3 mg (0.3 mL) IM Q10M PRN 06/05/25 injection, auto-injector (EpiPen anaphylaxis #2 ea 2-Manny) Flutter Valve #1 ea 06/07/25 apixaban 5 mg tablet (Eliquis) See Rx Instructions .Route 06/14/25 .COMPLEX #180 tabs trazodone 100 mg tablet 300 mg (3 x 100 mg) PO HS #270 tabs 06/17/25 Back brace #1 ea 07/02/25 Hospital Bed Mattress #1 ea 07/02/25 tirzepatide 10 mg/0.5 mL 10 mg (0.5 mL) subcut .weekly #2 mL 07/02/25 subcutaneous pen injector duloxetine 60 mg capsule,delayed 60 mg PO BID #60 caps 07/10/25 release Results & Data (ED) Vital Signs Vital Signs - 24 hr 07/16/25 10:30 07/16/25 12:16 07/16/25 12:22 Temperature 36.0 C L Temperature Source Temporal Artery Scan Pulse Rate 74 70 Pulse Rate [Apical] 71 Pulse Rhythm [Apical] Pulse Strength [Apical] Respiratory Rate 16 14 Respiratory Effort / Characteristics Non-Labored Spontaneous Non-Labored Spontaneous Respiratory Depth Normal Normal Respiratory Pattern Blood Pressure 122/41 L Blood Pressure [Right Arm] 150/46 H Blood Pressure Mean 68 Blood Pressure Mean [Right Arm] 80 Pulse Oximetry 93 99 Oxygen Delivery Method Nasal Cannula Nasal Cannula Oxygen Flow Rate 3 3 Sepsis Recent Fever Within 48 Hours No Sepsis New/Unexplained Change in Mental Status No Sepsis Action Taken by Nursing No Action Required 07/16/25 12:29 07/16/25 12:39 07/16/25 12:58 Temperature Temperature Source Pulse Rate Pulse Rate [Apical] 74 74 Pulse Rhythm [Apical] Regular Pulse Strength [Apical] Normal Respiratory Rate 21 18 Respiratory Effort / Characteristics Non-Labored Spontaneous Respiratory Depth Normal Normal Respiratory Pattern Regular Blood Pressure Blood Pressure [Right Arm] 148/73 H 131/68 Blood Pressure Mean Blood Pressure Mean [Right Arm] 98 89 Pulse Oximetry 94 97 98 Oxygen Delivery Method Nasal Cannula Nasal Cannula Nasal Cannula Oxygen Flow Rate 3 3 2 Sepsis Recent Fever Within 48 Hours Sepsis New/Unexplained Change in Mental Status Sepsis Action Taken by Retirement Medications Current Medication List: was personally reviewed by me Laboratory Data Attestation: I reviewed the patient's lab results. 07/16/25 10:43 07/16/25 10:43 Lab Results 07/16/25 07/16/25 Range/Units 10:43 11:53 WBC 8.32 (4.8-10.8) K/ul RBC 2.48 L (4.20-5.40) M/uL Hgb 6.2 L* (12.0-16.0) g/dl Hct 21.8 L (37.0-47.0) % MCV 87.9 (80.0-100.0) fL MCH 25.0 (25.0-34.0) pg MCHC 28.4 L (32.0-36.0) g/dL RDW Std Deviation 51.4 H (36.4-46.3) fL RDW Coeff of Donald 16.0 H (11.5-14.5) % Plt Count 219 (130-400) K/uL MPV 10.1 (9.4-12.4) fL Immature Gran % (Auto) 0.6 % Neut % (Auto) 80.6 % Lymph % (Auto) 9.3 % [place] % (Auto) 7.7 % Eos % (Auto) 1.4 % Baso % (Auto) 0.4 % Neut # (Auto) 6.71 H (1.40-6.50) K/uL Lymph # (Auto) 0.77 L (1.20-3.40) K/uL [place] # (Auto) 0.64 H (0.11-0.59) K/uL Eos # (Auto) 0.12 (0.00-0.50) K/uL Baso # (Auto) 0.03 (0.00-0.20) K/uL Immature Gran # (Auto) 0.05 (0.01-0.20) K/uL Polychromasia 1+ Hypochromasia Present PT 10.6 (9.0-12.0) Seconds INR 1.0 (0.9-1.1) APTT 29 (21-31) Seconds PTT Ratio 1.1 Sodium 135 L (136-145) mmol/L Potassium 4.5 (3.5-5.1) mmol/L Chloride 98 (98-107) mmol/L Carbon Dioxide 35 H (21-32) mmol/L Anion Gap 2 L (3-11) BUN 15 (6-23) mg/dl Creatinine 0.89 (0.6-1.2) mg/dl Est Cr Clr Drug Dosing Not Reportable eGFR 71.46 BUN/Creatinine Ratio 16.9 (10-20) Glucose 136 H (70-99(Fasting)) mg/dl Calcium 8.0 L (8.6-10.3) mg/dl Total Bilirubin 0.2 (0.2-1.0) mg/dl AST 12 L (13-39) U/L ALT 7 (7-52) U/L Alkaline Phosphatase 46 (34-104) U/L Troponin I High Sens 542.2 H* (0-14) pg/ml B-Natriuretic Peptide 486 H (0-100) pg/ml Total Protein 5.7 L (6.0-8.3) gm/dl Albumin 2.9 L (3.4-5.0) gm/dl Globulin 2.8 (2.5-4.0) gm/dl Albumin/Globulin Ratio 1.0 (0.9-2) Blood Type A Positive Antibody Screen NEGATIVE Crossmatch See Detail Administered Medications Discontinued Medications Furosemide (Furosemide Inj 20 Mg/2 Ml Vial) 20 mg IV ONE ONE Stop: 07/16/25 11:35 Last Admin: 07/16/25 11:52 Dose: 20 mg Documented By: sorin Imaging Data Attestation: I personally reviewed and interpreted this imaging study as follows: My Impression: 1 view chest x-ray was obtained in the emergency department. My interpretation is cardiomegaly with pulmonary edema, final report below. Radiologist's Impression: Chest X-Ray 07/16/25 10:35 XR chest 1V not portable CLINICAL HISTORY: Cough, burning in chest COMPARISON STUDY: 03/30/2024 FINDINGS: Right chest port tip is in the region of the brachiocephalic SVC junction. There is moderate cardiomegaly with increased pulmonary vascular congestion. There is increased hazy opacity in the lung bases. No pneumothorax. IMPRESSION: 1. CHF. 2. Increased lung base opacity could represent atelectasis, pneumonia, or small pleural effusions. ACT 112: Negative or not required by law. Electronically signed by: Raffi Champion M.D. 07/16/2025 11:29 AM Venous Doppler Study 07/16/25 11:25 BILATERAL LOWER EXTREMITY VENOUS DOPPLER CLINICAL HISTORY: Bilateral lower extremity swelling. COMPARISON STUDY: No previous studies for comparison. TECHNIQUE: Sonography of the deep venous system of the bilateral lower extremities was performed. Compression and augmentation were evaluated. FINDINGS: This exam is mildly compromised by suboptimal penetration. The bilateral common femoral, superficial femoral and popliteal veins were compressible. Augmentation was normal. Flow was shown within the deep calf vessels. IMPRESSION: Exam mildly compromised by suboptimal penetration but no evidence of deep venous thrombus within the bilateral lower extremities. ACT 112: Negative or not required by law. Electronically signed by: Mejia Wadsworth M.D. 07/16/2025 2:13 PM Discharge Plan Visit Data Chief Complaint: Shortness of Breath/Dyspnea Stated Complaint: SOB, FATIGUED, FALL, R LEG SWOLLEN ED Provider: Ajay Faye Discharge Problem: Pulmonary edema, Anemia, Bilateral edema of lower extremity, Elevated troponin I level Patient Disposition: Admitted As Inpatient Condition: Fair Discharge Instructions Interventions: ED Discharge Assessment Last Done: 07/16/25 14:34
[2025-07-16] MEDS ORDERED: SODIUM CHLORIDE 0.9% 100 ML IV PRN ×2 (11:46→19:08)
[2025-07-16] MEDS: FUROSEMIDE INJ 20 MG/2 ML VIAL IV ONE ×2 (11:52→22:21)
--- NOTE | 2025-07-16 14:14 | Ultrasound Report ---
BILATERAL LOWER EXTREMITY VENOUS DOPPLER CLINICAL HISTORY: Bilateral lower extremity swelling. COMPARISON STUDY: No previous studies for comparison. TECHNIQUE: Sonography of the deep venous system of the bilateral lower extremities was performed. Co mpression and augmentation were evaluated. FINDINGS: This exam is mildly compromised by suboptimal penetration. The bilateral common femoral, s uperficial femoral and popliteal veins were compressible. Augmentation was normal. Flow was shown wit hin the deep calf vessels. IMPRESSION: Exam mildly compromised by suboptimal penetration but no evidence of deep venous thrombus within the bilateral lower extremities. ACT 112: Negative or not required by law. Electronically signed by: Mejia Wadsworth M.D. 07/16/2025 2:13 PM
[2025-07-16] MEDS ORDERED: NITROGLYCERIN SL 0.4 MG/TAB TAB SL PRN (14:32)
--- NOTE | 2025-07-16 15:22 | Electrocardiogram Report ---
Test Reason : Blood Pressure : */* mmHG Vent. Rate : 69 BPM Atrial Rate : 69 BPM P-R Int : 154 ms QRS Dur : 68 ms QT Int : 398 ms P-R-T Axes : 34 47 33 degrees QTcB Int : 426 ms Normal sinus rhythm Nonspecific ST abnormality Abnormal ECG When compared with ECG of 25-May-2024 10:51, Nonspecific T wave abnormality no longer evident in Anterior leads Confirmed by Sea Deshpande ([id number]) on 07/16/2025 3:21:47 PM Referred By: Confirmed By: Sea Deshpande
--- NOTE | 2025-07-16 16:15 | History & Physical Report ---
Date of Service July 16, 2025 Assessment & Plan (1) Elevated troponin I level: (2) Bilateral edema of lower extremity: (3) Anemia: (4) Pulmonary edema: (5) Iron deficiency: Plan #Acute on chronic anemia #H/o Iron deficiency - pt is receiving 2 units PRBC on admission - pt has had extensive GI evaluation without identifiable cause - will request hematology eval for further assistance - check occult stool - monitor hemoglobin post transfusion #Volume overload #Elevated troponin - ECHO (05/2025): EF: 55-60% grade I DD, mild concentric LVH - BNP: 486, Trop 542 - trend trop at this time, pt does not have chest pain and EKG does not reveal any acute ischemia - s/p lasix 20mg IV in the ED, reassess post PRBC transfusion for further diuresis need - monitor on tele - will hold off on rpt ECHO at this time #Dyspnea #Coughing - combination of anemia and volume overload - reassess after transfusion and diuresis - hold off on any further abx at this time - guaifenesin BID - ICS #Carotid artery disease - right TCAR 11/2022, left TCAR 01/2023, redo left TCAR 04/2024 - will hold clopidogrel at this time, resume once Hgb stabilizes #h/o multiple DVT / PE #Thrombophilia - hold Eliquis at this time - resume once Hgb stable #COPD #YURI #Chronic hypoxia - cont supplemental oxygen - cont home inhalers - cont montelukast - CPAP ordered #HLD - cont statin and ezetimibe #Hypothyroidism - cont levothyroxine #Neuropathic pain - cont gabapentin - pt also takes doxycycline chronically due to spinal surgery, cont at this time #Psoriatic arthritis - on Cyltezo weekly, pt reports last dose on 07/12 - follows outpatient with rheumatology #Obesity - pt on Tirzepatide weekly, pt reports last dose on 07/12 #Code status: DNR / DNI, biPAP ok #DVT ppx- pt is on eliquis at home, will hold for now. cont SCDs #Dispo: admit on tele, PT / OT eval, pending hgb stability Admission and Anticipated Discharge Date Admission Date: July 16, 2025 History of Present Illness Chief Complaint: shortness of breath Primary Care Provider: Gerda M. Ricotta, DO 64 yr old F with PMHx of thrombophilia with multiple clots on Eliquis, anemia, iron deficiency, psoriatic arthritis on Cyletzo weekly, Obesity, tobacco use d/o, COPD, chronic hypoxia on oxygen, obesity hypoventilation syndrome, severe sleep apnea presents to the hospital for the evaluation of dyspnea worsened with exertion, orthopnea, PND. She also has this wet, loose cough that was recently treated with medrol dose pk. She notes some improvement but not resolution. Over the last 3 days, her symptoms have been worsening. She notes some burning in her chest especially with swallowing but denied chest pain. She also reports that she has had extensive GI workup and has not been able to find out the cause of her anemia. She follows as outpatient for iron infusion with hematology team. She denied every getting a bone marrow evaluation. She reports had a lot of workup done at [place]. In the ED, she was found to have anemia with Hgb of 6.2. She also had elevated BNP and troponin without EKG changes. Allergies Allergy/AdvReac Type Severity Reaction Status Date / Time bee pollen Allergy Severe Anaphylaxis Verified 06/25/25 10:42 fentanyl Allergy Severe Severe Verified 06/25/25 10:42 sedation, resp depression (only with patches) Penicillins Allergy Severe Anaphylaxis Verified 06/25/25 10:42 pregabalin Allergy Severe Shortness Verified 06/25/25 10:42 of breath honey Allergy Intermediate Hives Verified 06/25/25 10:42 adhesive Allergy Mild Blister Verified 06/25/25 10:42 (wipe some plastic tape) oxcarbazepine AdvReac Severe Severe Verified 06/25/25 10:42 [From Trileptal] stomach issues sulfamethoxazole AdvReac Severe Severe Verified 06/25/25 10:42 nausea trimethoprim AdvReac Severe Severe Verified 06/25/25 10:42 nausea buprenorphine [From Suboxone] AdvReac Intermediate Vomiting, Verified 06/25/25 10:42 skin problems clindamycin AdvReac Intermediate Diarrhea Verified 06/25/25 10:42 fluticasone AdvReac Intermediate Severe Verified 06/25/25 10:42 thrush ketorolac AdvReac Intermediate Migraine Verified 06/25/25 10:42 levofloxacin [From Levaquin] AdvReac Intermediate IBS ("can Verified 06/25/25 10:42 only tolerate for 5 days") naloxone [From Suboxone] AdvReac Intermediate Severe Verified 06/25/25 10:42 nausea, SKIN PROBLEMS ondansetron [From Zofran] AdvReac Intermediate Migraine Verified 06/25/25 10:42 saccharin [From Sweeta] AdvReac Intermediate Severe Verified 06/25/25 10:42 vomiting salmeterol AdvReac Intermediate Severe Verified 06/25/25 10:42 thrush cephalexin AdvReac Mild Nausea Verified 06/25/25 10:42 Home Medications Medication Instructions Recorded Confirmed Type Hospital Bed Homecare (Hospital #1 ea 11/14/19 06/25/25 Rx Bed) [facility] 06/25/25 Rx Verio Meter) doxycycline hyclate 100 mg capsule 100 mg PO QPM 06/17/21 07/16/25 History lancets 30 gauge ([facility] #200 ea 06/19/21 06/25/25 Rx Lancets) guaifenesin 1,200 mg tablet, 1,200 mg PO Q12H PRN Nasal 11/11/21 07/16/25 History extended release 12 hr (Mucinex) Congestion cholecalciferol (vitamin D3) 250 500 mcg PO DAILY 01/24/23 07/16/25 History mcg (10,000 unit) tablet cyanocobalamin (vitamin B-12) 500 1,000 mcg (2 x 500 mcg) PO DAILY 03/15/23 07/16/25 Rx mcg tablet #60 tabs Oxygen Home 05/17/23 06/25/25 History clopidogrel 75 mg tablet (Plavix) 75 mg PO QAM 10/26/23 07/16/25 History silver sulfadiazine 1 % topical 1 applic topical DAILY PRN wound 01/26/24 07/16/25 Rx cream (Silvadene) healing #50 grams oxybutynin chloride 5 mg tablet 5 mg PO TID #90 tabs 08/14/24 07/16/25 Rx metoprolol succinate 25 mg 25 mg PO BID #180 tabs 08/30/24 07/16/25 Rx tablet,extended release 24 hr blood sugar diagnostic #100 ea 12/03/24 06/25/25 Rx mometasone 0.1 % topical cream 1 applic topical DAILY PRN 12/19/24 07/16/25 Rx allergic reaction #15 grams ezetimibe 10 mg tablet (Zetia) 10 mg PO HS #90 tabs 12/28/24 07/16/25 Rx sucralfate 1 gram tablet (Carafate) 1 g PO BID PRN Acid Reflux #60 tabs 01/14/25 07/16/25 Rx clobetasol 0.05 % topical cream 1 applic topical BID PRN rash #45 01/17/25 07/16/25 Rx grams esomeprazole magnesium 40 mg 40 mg PO BID #180 caps 01/29/25 07/16/25 Rx capsule,delayed release (Nexium) folic acid 1 mg tablet 1 mg PO QAM #90 tabs 01/29/25 07/16/25 Rx levocetirizine 5 mg tablet (Xyzal) 5 mg PO HS #90 tabs 01/29/25 07/16/25 Rx magnesium oxide 400 mg PO TID #270 tabs 02/12/25 07/16/25 Rx adalimumab-adbm 40 mg/0.4 mL 40 mg (0.4 mL) subcut .WEEKLY #4 ea 02/15/25 07/16/25 Rx subcutaneous pen kit (Cyltezo(CF) Pen) albuterol sulfate 90 mcg/actuation 2 puff inhalation Q6H PRN Wheezing 02/18/25 07/16/25 Rx aerosol inhaler #18 grams levothyroxine 200 mcg tablet 200 mcg PO QAM #90 tabs 02/20/25 07/16/25 Rx rizatriptan 10 mg tablet (Maxalt) See Rx Instructions PO .COMPLEX 04/17/25 07/16/25 Rx #10 tabs Batteries for scooter #1 box 04/29/25 06/25/25 Rx pravastatin 80 mg tablet 80 mg PO DAILY #30 tabs 05/02/25 07/16/25 Rx hydroxyzine pamoate 25 mg capsule 25 mg PO TID PRN Anxiety #60 caps 05/06/25 07/16/25 Rx (Vistaril) gabapentin 800 mg tablet 800 mg PO UD #105 tabs 05/08/25 07/16/25 Rx montelukast 10 mg tablet 10 mg PO QAM #90 tabs 05/08/25 07/16/25 Rx (Singulair) benzonatate 200 mg capsule 200 mg PO BID PRN cough #30 caps 05/09/25 07/16/25 Rx ofloxacin 0.3 % ear drops 10 drp otic (ear) DAILY Bilateral 05/23/25 07/16/25 Rx ears 7 days #10 mL CPAP Machine #1 ea 06/04/25 06/25/25 Rx CPAP Supplies #1 ea 06/04/25 06/25/25 Rx fluticasone fur. 200 mcg-umeclid 1 inh inhalation DAILY #60 ea 06/04/25 07/16/25 Rx 62.5 mcg-vilant 25 mcg inhalat.powder (Trelegy Ellipta) ipratropium 0.5 mg-albuterol 3 mg 3 ml inhalation Q2H #180 mL 06/04/25 07/16/25 Rx (2.5 mg base)/3 mL nebulization soln epinephrine 0.3 mg/0.3 mL 0.3 mg (0.3 mL) IM Q10M PRN 06/05/25 07/16/25 Rx injection, auto-injector (EpiPen anaphylaxis #2 ea 2-Manny) Flutter Valve #1 ea 06/07/25 06/25/25 Rx chlorzoxazone 500 mg tablet 500 mg PO TID PRN Muscle Spasm 06/10/25 07/16/25 History apixaban 5 mg tablet (Eliquis) See Rx Instructions .Route 06/14/25 07/16/25 Rx .COMPLEX #180 tabs trazodone 100 mg tablet 300 mg (3 x 100 mg) PO HS #270 tabs 06/17/25 07/16/25 Rx oxycodone 10 mg tablet 10 mg PO Q6H PRN pain, severe 06/25/25 07/16/25 History Back brace #1 ea 07/02/25 Rx Hospital Bed Mattress #1 ea 07/02/25 Rx tirzepatide 10 mg/0.5 mL 10 mg (0.5 mL) subcut .weekly #2 mL 07/02/25 07/16/25 Rx subcutaneous pen injector duloxetine 60 mg capsule,delayed 60 mg PO BID #60 caps 07/10/25 07/16/25 Rx release betamethasone dipropionate 0.05 % 0 applic topical BID PRN skin 07/16/25 07/16/25 History topical cream irritation buspirone 10 mg tablet 10 mg PO UD 07/16/25 07/16/25 History miscellaneous medical supply 07/16/25 07/16/25 History nitroglycerin 0.4 mg sublingual 0 mg sublingual UD PRN Pain 07/16/25 07/16/25 History tablet (Nitrostat) nystatin 100,000 unit/gram topical 0 applic topical BID PRN rash 07/16/25 07/16/25 History ointment nystatin 100,000 unit/mL oral 0 unit PO UD 07/16/25 07/16/25 History suspension Past Med/Surg History Problem List (Updated 07/16/25 @ 12:40 by Ajay Faye DO) Elevated troponin I level (Acute) Bilateral edema of lower extremity (Acute) Anemia (Acute) Pulmonary edema (Acute) Lumbar spinal stenosis Smoking history Dyspnea Dysphagia Allergy to multiple antibiotics Memory loss History of back surgery x 6 total lumbar (including fusion) Poor venous access on examination Venous (peripheral) insufficiency Hx of deep venous thrombosis 2013 > from Thrombophlebitis follows with Dr. Dickson IBS (irritable bowel syndrome) Personal history of pulmonary embolism (2013) 2014 > treated with blood thinners - eliquis Paroxysmal atrial fibrillation Hx of thyroid cancer (2015) s/p thyroidectomy + XRT (one round) Iron deficiency Insomnia Migraines History of left common carotid artery stent placement (01/20/23) Stenosis of left internal carotid artery History of TIA (transient ischemic attack) Bilateral carotid artery stenosis Morbid obesity BMI 43.2 Chronic hyponatremia Incontinence Severe sleep apnea 3L oxygen via N/C- (WAITING ON CPAP DEVICE) Follows with pulm Ulnar neuropathy at elbow of left upper extremity Cervical radiculopathy Esophageal dysphagia Ataxia Chronic antibiotic suppression Subjective memory complaints Diabetic peripheral neuropathy Anemia Chronic anticoagulation (Acute) " CLOTTING PROBLEM' x 5 YRS F/U DR PATTERSON Lumbar spondylosis Chronic low back pain Gastritis Hypomagnesemia (Acute) Chronic diarrhea Anxiety AF (paroxysmal atrial fibrillation) Takes Eliquis, follows with Dr. Plaza, no pacer NO HX CARDIOVERSION Thoracic spinal stenosis Dysfunction of right eustachian tube Dermatitis of both ear canals Obesity hypoventilation syndrome Degenerative joint disease of shoulder BILATERAL Hypothyroidism (acquired) S/p thyroidectomy 2015 (final pathology negative for malignancy) Psoriatic arthritis No meds at this time- follows with rheum Sensorineural hearing loss (SNHL) of both ears (Chronic) Hypertension GERD (gastroesophageal reflux disease) Degenerative cervical spinal stenosis (Chronic) COPD (chronic obstructive pulmonary disease) rare res inh use per pt > more fall season Chronic interstitial cystitis Allergic rhinitis Type 2 diabetes mellitus Pulsatile tinnitus (Chronic) Lumbar disc disease (Chronic) Failed back syndrome (Chronic) Depression Coronary artery disease Minor nonobstructive CAD per September 2012 cath per cardio records No hx stents or angioplasty Osteoarthritis (Chronic) Hyperlipidemia controlled per pt On home oxygen therapy (Chronic) 5L/MIN NC HS Medical History Left leg weakness GIB (gastrointestinal bleeding) Bright red blood per rectum Neurogenic claudication due to lumbar spinal stenosis History of left common carotid artery stent placement (01/20/23) Hx of gastritis Failed back syndrome Chronic low back pain Chronic hyponatremia DJD of both shoulders "bone on bone" unable to have surgery due to blood thinners, has chronic pain both arms History of esophageal dilatation (10/31/23) Hx of migraines rare Rheumatoid arthritis follows with rhepenny [facility] at [facility] Clotting disorder per Dr. Dickson, per pt, unsure what type TIA (transient ischemic attack) (2013) 2013 > no residual effects - follows with dr. velázquez History of seizures Age 3 (in setting of fever/measles) > nothing since Meralgia paresthetica of right side Follows with neuro - Dr. Velázquez History of [place] (myocardial infarction) (2009) 2009 > nothing since > no stents Personal history of skin cancer s/p excision from RLE Surgical History H/O transcarotid artery revascularization (TCAR) (05/02/24) Redo L TCAR History of esophagogastroduodenoscopy (EGD) History of right common carotid artery stent placement (12/01/22) Dr Attila Carrington History of tonsillectomy H/O colonoscopy with polypectomy History of cystoscopy Multiple History of incision and drainage (08/11/20) I&D lumbar spine incision w/ placement of abx beads and wound vac - NO CURRENT WOUND VAC/ANTIBIOTIC DAILY (DOXYCYCLINE chronic) H/O cataract extraction R/L S/P dilatation and curettage S/P section x2 History of thyroidectomy, total (2015) History of knee replacement R/L History of placement of ear tubes R/L History of cervical spinal surgery x2; limited rom-right is ok to shoulder, left is better than right History of breast biopsy Left (benign) History of appendectomy History of cardiac cath x7 (09/2012 > no stents)- all at [facility] except for 1 at [facility] (2009, [place])- Follows with [facility] (q 6 months last seen January 2024) Family History Mother Diabetes Family history of diabetes mellitus Cardiac disorder Heart trouble Myocardial infarction Renal failure Family history of reaction to anesthesia nausea/vomiting Hypertension Stroke Gallbladder disease Grandfather Family hx of colon cancer Myocardial infarction Father Colon cancer Cardiac disorder Kidney stones Heart trouble Myocardial infarction Degenerative disc disease Lung disease Hypertension Stroke Rheumatoid arthritis Aunt Colon cancer Diabetes Grandmother (Maternal) Degenerative disc disease Cancer Rheumatoid arthritis Sister Diabetes Family history of diabetes mellitus Breast cancer Cancer Hypertension Gallbladder disease Rheumatoid arthritis Family/Other Kidney disease Brother Multiple sclerosis Uncle Myocardial infarction Grandfather (Maternal) Family history of diabetes mellitus Aunt Diabetes Aunt Diabetes Aunt Diabetes Aunt Diabetes Aunt Diabetes Other Dementia Denies family history of Ovarian cancer Prostate cancer Adverse effect of anesthesia Bleeding disorder Social History Smoking Status: Current every day smoker Tobacco Type: E-cigarettes / Vaping Age Started Using Tobacco: 12; packs per day: 0.5; Cigarettes Per Day: Vapes daily (advised); Second Hand Exposure: No; Do You Dip or Chew Tobacco: No; Hx Alcohol Use: No Hx Substance Use: Yes Preferred Language: [place] Leonean Communication Ability: Effective Visual Impairment: Limited Hearing Ability: Hard of Hearing Support Merchandiser Required: Yes Beliefs That Will Affect Care: None marital status: Current Living Situation: Spouse Current Living Situation Comment: AND SON current occupational status: unemployed How many Children do You have: 2 Feels Safe at Home: Yes Childhood Exposure to Second-Hand Smoke: Yes (father smoked) Diet: regular Diet Comment: regular caffeine: Yes during the past year weight has: increased > 10 lbs Dental Care, Regularly: Yes Physical Activity Frequency: Does not Exercise Physical Activity Frequency Comment: LIMITED BY PHYSICAL CONDITION Seatbelt Use: always Sunscreen Use: Yes Assistive Devices: Cane Review of Systems Review of Systems: Comprehensive ROS completed and is otherwise negative. Physical Exam Physical Exam: Gen: no acute distress, lying in bed comfortable HEENT: NC/AT, MMM Lungs: nonlabored breathing, expiratory wheezing noted, loose cough CVS: s1s2nl, RRR, II/ LOUIE Abd: nl bowel sounds, soft, NT / ND : no lucas Ext: no edema Neuro: AAOx3 Psych: calm, cooperative Results & Data Results & Data Vital Signs (Past 12 Hours) Vital Signs Temp Pulse Pulse Resp BP BP Pulse Ox 07/16/25 15:30 37.2 C 74 18 123/61 95 07/16/25 15:00 75 19 119/54 L 97 07/16/25 14:45 37.4 C 76 18 108/61 98 07/16/25 14:34 07/16/25 14:30 37.1 C 75 18 123/66 98 07/16/25 12:58 74 18 131/68 98 07/16/25 12:39 74 21 148/73 H 97 07/16/25 12:29 94 07/16/25 12:22 70 07/16/25 12:16 71 14 150/46 H 99 07/16/25 10:30 36.0 C L 74 16 122/41 L 93 Pulse Ox O2 Del Method O2 Del Method O2 Flow Rate O2 Flow Rate 07/16/25 15:30 0 07/16/25 15:00 0 07/16/25 14:45 4 07/16/25 14:34 96 Nasal Cannula 2 07/16/25 14:30 07/16/25 12:58 Nasal Cannula 2 07/16/25 12:39 Nasal Cannula 3 07/16/25 12:29 Nasal Cannula 3 07/16/25 12:22 07/16/25 12:16 Nasal Cannula 3 07/16/25 10:30 Nasal Cannula 3 Code Status & VTE Plan VTE Prophylaxis Plan VTE Prophylaxis will be ordered: No Reason for no VTE drug order: Contraindicated PG Care Time/CCT Total # of Minutes Spent Total Time Spent with Patient: Total time spent is greater than 50% in coordination of care (as documented) at patient's floor/unit and/or counseling patient: Coding Level of Care Code 64027 INT INP/OBS CARE 3/75MIN Diagnoses Elevated troponin I level R79.89 Bilateral edema of lower extremity R60.0 Anemia D64.9 Pulmonary edema J81.1 Iron deficiency E61.1
[2025-07-16] MEDS ORDERED: GABAPENTIN 800 MG TAB PO SCH (16:30)
[2025-07-16] MEDS ORDERED: busPIRone 5 MG TAB PO SCH (16:30)
[2025-07-16] MEDS: ALBUT/IPRATROP 3MG/0.5MG NEB 3 ML VIAL INH SCH (17:34)
[2025-07-16] MEDS: GABAPENTIN 800 MG TAB PO SCH (17:34)
[2025-07-16] MEDS: guaiFENesin 600 MG TABCR PO SCH (17:34)
[2025-07-16] MEDS: EZETIMIBE 10 MG TAB PO SCH (20:09)
[2025-07-16] MEDS: GABAPENTIN 400 MG CAP PO SCH (20:11)
[2025-07-16] MEDS: busPIRone 15 MG TAB PO SCH (20:12)
[2025-07-16] MEDS: ALBUT/IPRATROP 3MG/0.5MG NEB 3 ML VIAL NEB SCH (20:32)
[2025-07-16] MEDS: DOXYCYCLINE HYCLATE 100 MG CAP PO SCH (21:12)
[2025-07-17 00:57] LABS: Hematocrit (blood only) 25.4 % (37.0-47.0); Hemoglobin 7.7 g/dl (12.0-16.0)
[2025-07-17] MEDS: LEVOTHYROXINE SODIUM 200 MCG TABLET PO SCH (05:04)
[2025-07-17 05:41] LABS: Hematocrit (blood only) 24.9 % (37.0-47.0); Hemoglobin 7.4 g/dl (12.0-16.0); Mean Corpuscular Hemoglobin 25.8 pg (25.0-34.0); Mean Corpuscular Volume 86.8 fL (80.0-100.0); Platelet Count 224 K/uL (130-400); RDW Standard Deviation 49.0 fL (36.4-46.3); Red Blood Count 2.87 M/uL (4.20-5.40); White Blood Count 6.11 K/ul (4.8-10.8)
[2025-07-17 05:58] LABS: Alanine Aminotransferase 6.0 U/L (7-52); Albumin Globulin Ratio 0.9 (0.9-2); Albumin Level 2.6 gm/dl (3.4-5.0); Alkaline Phosphatase 38.0 U/L (34-104); Anion Gap 5.0 (3-11); Bilirubin,Total 0.4 mg/dl (0.2-1.0); Blood Urea Nitrogen 12.0 mg/dl (6-23); Calcium 8.1 mg/dl (8.6-10.3); Carbon Dioxide 36.0 mmol/L (21-32); Chloride 98.0 mmol/L (98-107); Creatinine Clr Calc Pharmacy 87.5 ml/min; Globulin 2.8 gm/dl (2.5-4.0); Glucose 94.0 mg/dl (70-99(Fasting)); Magnesium 1.7 mg/dl (1.7-2.4); Potassium 4.0 mmol/L (3.5-5.1); Sodium 139.0 mmol/L (136-145); Total Protein 5.4 gm/dl (6.0-8.3)
[2025-07-17] MEDS ORDERED: NON-FORMULARY MEDICATION (Fluticasone-Umeclidin-Vilanter [Trelegy Ellipta] 200-62.5-25 mcg INH SCH (09:00)
[2025-07-17] MEDS ORDERED: CLOPIDOGREL BISULFATE 75 MG TAB PO SCH (09:00)
[2025-07-17] MEDS: PRAVASTATIN SOD 40 MG TAB PO SCH (09:04)
[2025-07-17] MEDS: busPIRone 5 MG TAB PO SCH (09:05)
[2025-07-17] MEDS: MONTELUKAST SODIUM 10 MG TABLET PO SCH (09:05)
[2025-07-17] MEDS: UMECLIDINIUM/VILANTEROL 62.5/25MCG 7 PUFFS/INHALER INH SCH (09:06)
[2025-07-17] MEDS: FLUTICASONE FUROATE 200MCG 14 PUFFS/INHALER INH SCH (09:06)
[2025-07-17] MEDS: MAGNESIUM SULFATE / D5W 1 GM/100 ML BAG IV ONE (11:20)
[2025-07-17] MEDS: FUROSEMIDE 40 MG/4 ML VIAL IV SCH (11:21)
[2025-07-17] MEDS ORDERED: POLYETHYLENE (MIRALAX) 17 GM PACK PO PRN (14:15)
--- NOTE | 2025-07-17 14:19 | XCELERA ---
[id number] [id number]
--- NOTE | 2025-07-17 17:37 | Hospitalist Progress Note ---
Date of Service July 17, 2025 Assessment & Plan (1) Elevated troponin I level: (2) Bilateral edema of lower extremity: (3) Anemia: (4) Pulmonary edema: (5) Iron deficiency: Plan #Acute on chronic anemia #H/o Iron deficiency - pt is receiving 2 units PRBC on admission - pt has had extensive GI evaluation without identifiable cause - Hematology consult pending - check occult stool - Hgb 7.4 s/p 2 units packed RBCs - No prior CT angiogram to assess for slow lower GI bleed therefore will get this today #Volume overload #Elevated troponin - ECHO (05/2025): EF: 55-60% grade I DD, mild concentric LVH - BNP: 486, Trop consistent with type 2 NSTEMI - trend trop at this time, pt does not have chest pain and EKG does not reveal any acute ischemia - additional lasix 40mg IV today - monitor on tele - repeat limited TTE unremarkable - daily weight, I&Os #Dyspnea #Coughing - combination of anemia and volume overload - reassess after transfusion and diuresis - hold off on any further abx at this time - guaifenesin BID - ICS #Carotid artery disease - right TCAR 11/2022, left TCAR 01/2023, redo left TCAR 04/2024 - will hold clopidogrel at this time, resume once Hgb stabilizes #h/o multiple DVT / PE #Thrombophilia - hold Eliquis at this time - resume once Hgb stable #COPD #YURI #Chronic hypoxia - cont supplemental oxygen - cont home inhalers - cont montelukast - CPAP ordered #HLD - cont statin and ezetimibe #Hypothyroidism - cont levothyroxine #Neuropathic pain - cont gabapentin - pt also takes doxycycline chronically due to spinal surgery, cont at this time #Psoriatic arthritis - on Cyltezo weekly, pt reports last dose on 07/12 - follows outpatient with rheumatology #Obesity - pt on Tirzepatide weekly, pt reports last dose on 07/12 #Code status: DNR / DNI, biPAP ok #VTE Prophylaxis - pt is on eliquis at home, will hold for now. cont SCDs #Dispo: admit on tele, PT / OT eval Admission and Anticipated Discharge Date Admission Date: July 16, 2025 Subjective Not yet back to baseline but significantly improved. No abdominal pain. Physical Exam Respiratory: normal respiratory effort; no respiratory distress Auscultation: + breath sounds absent (bibasal); no crackles and no wheezes Cardiovascular: Rate/Rhythm: regular rate and regular rhythm Extremities: + pedal edema; no calf tenderness Results & Data Results & Data Vital Signs (Past 12 Hours) Vital Signs Temp Pulse Pulse Resp BP Pulse Ox O2 Del Method 07/17/25 15:53 80 07/17/25 15:17 36.8 C 75 18 135/74 96 Nasal Cannula 07/17/25 14:31 72 16 97 Nasal Cannula 07/17/25 11:15 36.6 C 77 18 126/81 98 Room Air 07/17/25 11:01 71 18 97 Nasal Cannula 07/17/25 08:00 Nasal Cannula 07/17/25 07:25 36.7 C 89 18 108/58 L 97 Nasal Cannula 07/17/25 07:11 79 O2 Flow Rate 07/17/25 15:53 07/17/25 15:17 3 07/17/25 14:31 3 07/17/25 11:15 07/17/25 11:01 3 07/17/25 08:00 3 07/17/25 07:25 3 07/17/25 07:11 PG Care Time/CCT Total # of Minutes Spent Total Time Spent with Patient: Total time spent is greater than 50% in coordination of care (as documented) at patient's floor/unit and/or counseling patient: Coding Level of Care Code 23926 SUB INP/OBS CARE 2/35MIN Diagnoses Elevated troponin I level R79.89 Bilateral edema of lower extremity R60.0 Anemia D64.9 Pulmonary edema J81.1 Iron deficiency E61.1
[2025-07-17] MEDS: HEPARIN 100 UNIT/ML 5ML FLUSH FLUSH PRN (17:50)
[2025-07-17 17:55] LABS: Immunoglobulin A 154.4 mg/dl (70-400); Immunoglobulin G 591.0 mg/dl (635-1741); Immunoglobulin M 140.0 mg/dl (45-281)
[2025-07-17 18:21] LABS: Hematocrit (blood only) 27.0 % (37.0-47.0); Hemoglobin 8.2 g/dl (12.0-16.0)
[2025-07-17 18:22] LABS: Folate (Folic Acid),Ser orPlas > 22.30 ng/ml (>5.38)
--- NOTE | 2025-07-17 18:31 | Oncology Consultation ---
Date of Consultation July 17, 2025 Assessment & Plan (1) Anemia: Plan -Labs consistent with iron deficiency anemia. Will however obtain labs including SPEP with GRIFFIN, serum immunoglobulins and free light chains to rule out plasma cell dyscrasia. -Recommend IV Venofer 300 mg daily x 2-3 doses. Consider GI evaluation for upper endoscopy/colonoscopy since it appears that she has not had one since 2023. May also benefit from capsule endoscopy. - She will continue follow-up with [facility] hematology upon discharge from hospital. History of Present Illness Reason for Consultation: Anemia Attending Physician: Frank Escobar MD History of Present Illness 64-year-old female with history of chronic anemia thought to be secondary to iron deficiency for which she is followed by [facility] hematology admitted to [facility] on 07/08/2025 with shortness of breath. Labs si gnificant for severe anemia with hemoglobin of 6.2, hematocrit of 21.8. Received PRBC transfusion. Anemia labs significant for ferritin of 31.7, low transferrin saturation of 11%. B12 and folate were within normal limits. She is on Eliquis and Plavix and has had GI workup in the past including EGD, colonoscopy most recently in 2023, unclear if she has had capsule endoscopy. Allergies Allergy/AdvReac Type Severity Reaction Status Date / Time bee pollen Allergy Severe Anaphylaxis Verified 06/25/25 10:42 fentanyl Allergy Severe Severe Verified 06/25/25 10:42 sedation, resp depression (only with patches) Penicillins Allergy Severe Anaphylaxis Verified 06/25/25 10:42 pregabalin Allergy Severe Shortness Verified 06/25/25 10:42 of breath honey Allergy Intermediate Hives Verified 06/25/25 10:42 adhesive Allergy Mild Blister Verified 06/25/25 10:42 (wipe some plastic tape) oxcarbazepine AdvReac Severe Severe Verified 06/25/25 10:42 [From Trileptal] stomach issues sulfamethoxazole AdvReac Severe Severe Verified 06/25/25 10:42 nausea trimethoprim AdvReac Severe Severe Verified 06/25/25 10:42 nausea buprenorphine [From Suboxone] AdvReac Intermediate Vomiting, Verified 06/25/25 10:42 skin problems clindamycin AdvReac Intermediate Diarrhea Verified 06/25/25 10:42 fluticasone AdvReac Intermediate Severe Verified 06/25/25 10:42 thrush ketorolac AdvReac Intermediate Migraine Verified 06/25/25 10:42 levofloxacin [From Levaquin] AdvReac Intermediate IBS ("can Verified 06/25/25 10:42 only tolerate for 5 days") naloxone [From Suboxone] AdvReac Intermediate Severe Verified 06/25/25 10:42 nausea, SKIN PROBLEMS ondansetron [From Zofran] AdvReac Intermediate Migraine Verified 06/25/25 10:42 saccharin [From Sweeta] AdvReac Intermediate Severe Verified 06/25/25 10:42 vomiting salmeterol AdvReac Intermediate Severe Verified 06/25/25 10:42 thrush cephalexin AdvReac Mild Nausea Verified 06/25/25 10:42 Home Medications Medication Instructions Recorded Confirmed Type Hospital Bed Homecare ([facility] #1 ea 11/14/19 06/25/25 Rx Bed) blood-glucose meter ([facility] #1 ea 09/18/20 06/25/25 Rx Verio Meter) doxycycline hyclate 100 mg capsule 100 mg PO QPM 06/17/21 07/16/25 History lancets 30 gauge ([employer] #200 ea 06/19/21 06/25/25 Rx Lancets) guaifenesin 1,200 mg tablet, 1,200 mg PO Q12H PRN Nasal 11/11/21 07/16/25 History extended release 12 hr (Mucinex) Congestion cholecalciferol (vitamin D3) 250 500 mcg PO DAILY 01/24/23 07/16/25 History mcg (10,000 unit) tablet cyanocobalamin (vitamin B-12) 500 1,000 mcg (2 x 500 mcg) PO DAILY 03/15/23 07/16/25 Rx mcg tablet #60 tabs Oxygen Home 05/17/23 06/25/25 History clopidogrel 75 mg tablet (Plavix) 75 mg PO QAM 10/26/23 07/16/25 History silver sulfadiazine 1 % topical 1 applic topical DAILY PRN wound 01/26/24 07/16/25 Rx cream (Silvadene) healing #50 grams oxybutynin chloride 5 mg tablet 5 mg PO TID #90 tabs 08/14/24 07/16/25 Rx metoprolol succinate 25 mg 25 mg PO BID #180 tabs 08/30/24 07/16/25 Rx tablet,extended release 24 hr blood sugar diagnostic #100 ea 12/03/24 06/25/25 Rx mometasone 0.1 % topical cream 1 applic topical DAILY PRN 12/19/24 07/16/25 Rx allergic reaction #15 grams ezetimibe 10 mg tablet (Zetia) 10 mg PO HS #90 tabs 12/28/24 07/16/25 Rx clobetasol 0.05 % topical cream 1 applic topical BID PRN rash #45 01/17/25 07/16/25 Rx grams esomeprazole magnesium 40 mg 40 mg PO BID #180 caps 01/29/25 07/16/25 Rx capsule,delayed release (Nexium) folic acid 1 mg tablet 1 mg PO QAM #90 tabs 01/29/25 07/16/25 Rx levocetirizine 5 mg tablet (Xyzal) 5 mg PO HS #90 tabs 01/29/25 07/16/25 Rx magnesium oxide 400 mg PO TID #270 tabs 02/12/25 07/16/25 Rx adalimumab-adbm 40 mg/0.4 mL 40 mg (0.4 mL) subcut .WEEKLY #4 ea 02/15/25 07/16/25 Rx subcutaneous pen kit (Cyltezo(CF) Pen) albuterol sulfate 90 mcg/actuation 2 puff inhalation Q6H PRN Wheezing 02/18/25 07/16/25 Rx aerosol inhaler #18 grams levothyroxine 200 mcg tablet 200 mcg PO QAM #90 tabs 02/20/25 07/16/25 Rx rizatriptan 10 mg tablet (Maxalt) See Rx Instructions PO .COMPLEX 04/17/25 07/16/25 Rx #10 tabs Batteries for scooter #1 box 04/29/25 06/25/25 Rx pravastatin 80 mg tablet 80 mg PO DAILY #30 tabs 05/02/25 07/16/25 Rx hydroxyzine pamoate 25 mg capsule 25 mg PO TID PRN Anxiety #60 caps 05/06/25 07/16/25 Rx (Vistaril) gabapentin 800 mg tablet 800 mg PO UD #105 tabs 05/08/25 07/16/25 Rx montelukast 10 mg tablet 10 mg PO QAM #90 tabs 05/08/25 07/16/25 Rx (Singulair) benzonatate 200 mg capsule 200 mg PO BID PRN cough #30 caps 05/09/25 07/16/25 Rx ofloxacin 0.3 % ear drops 10 drp otic (ear) DAILY Bilateral 05/23/25 07/16/25 Rx ears 7 days #10 mL CPAP Machine #1 ea 06/04/25 06/25/25 Rx CPAP Supplies #1 ea 06/04/25 06/25/25 Rx fluticasone fur. 200 mcg-umeclid 1 inh inhalation DAILY #60 ea 06/04/25 07/16/25 Rx 62.5 mcg-vilant 25 mcg inhalat.powder (Trelegy Ellipta) ipratropium 0.5 mg-albuterol 3 mg 3 ml inhalation Q2H #180 mL 06/04/25 07/16/25 Rx (2.5 mg base)/3 mL nebulization soln epinephrine 0.3 mg/0.3 mL 0.3 mg (0.3 mL) IM Q10M PRN 06/05/25 07/16/25 Rx injection, auto-injector (EpiPen anaphylaxis #2 ea 2-Manny) Flutter Valve #1 ea 06/07/25 06/25/25 Rx chlorzoxazone 500 mg tablet 500 mg PO TID PRN Muscle Spasm 06/10/25 07/16/25 History apixaban 5 mg tablet (Eliquis) See Rx Instructions .Route 06/14/25 07/16/25 Rx .COMPLEX #180 tabs trazodone 100 mg tablet 300 mg (3 x 100 mg) PO HS #270 tabs 06/17/25 07/16/25 Rx oxycodone 10 mg tablet 10 mg PO Q6H PRN pain, severe 06/25/25 07/16/25 History Back brace #1 ea 07/02/25 Rx Hospital Bed Mattress #1 ea 07/02/25 Rx tirzepatide 10 mg/0.5 mL 10 mg (0.5 mL) subcut .weekly #2 mL 07/02/25 07/16/25 Rx subcutaneous pen injector duloxetine 60 mg capsule,delayed 60 mg PO BID #60 caps 07/10/25 07/16/25 Rx release betamethasone dipropionate 0.05 % 0 applic topical BID PRN skin 07/16/25 07/16/25 History topical cream irritation buspirone 10 mg tablet 10 mg PO UD 07/16/25 07/16/25 History miscellaneous medical supply 07/16/25 07/16/25 History nitroglycerin 0.4 mg sublingual 0 mg sublingual UD PRN Pain 07/16/25 07/16/25 History tablet (Nitrostat) nystatin 100,000 unit/gram topical 0 applic topical BID PRN rash 07/16/25 07/16/25 History ointment nystatin 100,000 unit/mL oral 0 unit PO UD 07/16/25 07/16/25 History suspension sucralfate 1 gram tablet (Carafate) 1 g PO BID PRN Acid Reflux #60 tabs 07/17/25 Rx Patient History Medical History Left leg weakness GIB (gastrointestinal bleeding) Bright red blood per rectum Neurogenic claudication due to lumbar spinal stenosis History of left common carotid artery stent placement (01/20/23) Hx of gastritis Failed back syndrome Chronic low back pain Chronic hyponatremia 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 Dickson, per pt, unsure what type TIA (transient ischemic attack) (2013) 2013 > no residual effects - follows with dr. velázquez History of seizures Age 3 (in setting of fever/measles) > nothing since Meralgia paresthetica of right side Follows with neuro - Dr. Velázquez History of IN (myocardial infarction) (2009) 2009 > nothing since > no stents Personal history of skin cancer s/p excision from RLE Surgical History H/O transcarotid artery revascularization (TCAR) (05/02/24) Redo L TCAR History of esophagogastroduodenoscopy (EGD) History of right common carotid artery stent placement (12/01/22) bilat [facility], Dr Aiken History of tonsillectomy H/O colonoscopy with polypectomy History of cystoscopy Multiple History of incision and drainage (08/11/20) I&D lumbar spine incision w/ placement of abx beads and wound vac - NO CURRENT WOUND VAC/ANTIBIOTIC DAILY (DOXYCYCLINE chronic) H/O cataract extraction R/L S/P dilatation and curettage S/P section x2 History of thyroidectomy, total (2015) History of knee replacement R/L History of placement of ear tubes R/L History of cervical spinal surgery x2; limited rom-right is ok to shoulder, left is better than right History of breast biopsy Left (benign) History of appendectomy History of cardiac cath x7 (09/2012 > no stents)- all at [place] except for 1 at [facility] (2009, [place])- Follows with [facility] (q 6 months last seen January 2024) Family History Mother Diabetes Family history of diabetes mellitus Cardiac disorder Heart trouble Myocardial infarction Renal failure Family history of reaction to anesthesia nausea/vomiting Hypertension Stroke Gallbladder disease Grandfather Family hx of colon cancer Myocardial infarction Father Colon cancer Cardiac disorder Kidney stones Heart trouble Myocardial infarction Degenerative disc disease Lung disease Hypertension Stroke Rheumatoid arthritis Aunt Colon cancer Diabetes Grandmother (Maternal) Degenerative disc disease Cancer Rheumatoid arthritis Sister Diabetes Family history of diabetes mellitus Breast cancer Cancer Hypertension Gallbladder disease Rheumatoid arthritis Family/Other Kidney disease Brother Multiple sclerosis Uncle Myocardial infarction Grandfather (Maternal) Family history of diabetes mellitus Aunt Diabetes Aunt Diabetes Aunt Diabetes Aunt Diabetes Aunt Diabetes Other Dementia Denies family history of Ovarian cancer Prostate cancer Adverse effect of anesthesia Bleeding disorder Social History Smoking Status: Current every day smoker Tobacco Type: Cigarettes and E-cigarettes / Vaping Age Started Using Tobacco: 12; packs per day: 0.5; Cigarettes Per Day: 1 pack per week and vaping; Second Hand Exposure: No; Do You Dip or Chew Tobacco: No; Hx Alcohol Use: No Hx Substance Use: No Preferred Language: Citizen [place] Communication Ability: Effective Visual Impairment: Limited Hearing Ability: Hard of Hearing 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 Beliefs That Will Affect Care: None marital status: Current Living Situation: Spouse and Family Current Living Situation Comment: AND SON current occupational status: unemployed How many Children do You have: 2 Feels Safe at Home: Yes Childhood Exposure to Second-Hand Smoke: Yes (father smoked) Diet: regular Diet Comment: regular caffeine: Yes during the past year weight has: increased > 10 lbs Dental Care, Regularly: Yes Physical Activity Frequency: Does not Exercise Physical Activity Frequency Comment: LIMITED BY PHYSICAL CONDITION Seatbelt Use: always Sunscreen Use: Yes Assistive Devices: Cane, Oxygen - Continuous and Walker Results & Data Vital Signs (Past 12 Hours) Vital Signs Temp Pulse Pulse Resp BP Pulse Ox O2 Del Method 07/17/25 15:53 80 07/17/25 15:17 36.8 C 75 18 135/74 96 Nasal Cannula 07/17/25 14:31 72 16 97 Nasal Cannula 07/17/25 11:15 36.6 C 77 18 126/81 98 Room Air 07/17/25 11:01 71 18 97 Nasal Cannula 07/17/25 08:00 Nasal Cannula 07/17/25 07:25 36.7 C 89 18 108/58 L 97 Nasal Cannula 07/17/25 07:11 79 O2 Flow Rate 07/17/25 15:53 07/17/25 15:17 3 07/17/25 14:31 3 07/17/25 11:15 07/17/25 11:01 3 07/17/25 08:00 3 07/17/25 07:25 3 07/17/25 07:11
[2025-07-17 18:42] LABS: Vitamin B12 921 pg/ml (180-914)
[2025-07-17] MEDS: OPTIRAY 320 125ml IV ONE (21:00)
--- NOTE | 2025-07-17 23:08 | CT Scan Report ---
Exam(s): CTA ABDOMEN + PELVIS With Contrast IV Amt: 115 ml optiray 320 EXAM: CT Abdomen and Pelvis With Intravenous Contrast CLINICAL HISTORY: Reason for exam: ?lower gi bleed. TECHNIQUE: Axial computed tomographic images of the abdomen and pelvis with intravenous contrast. CTDI is 35.25 mGy and DLP is 1895.93 mGy-cm. Automated exposure control was utilized for the study. A dose lowering technique was utilized adhering to the principles of ALARA. CONTRAST: Patient received 115 ml optiray 320 of IV contrast COMPARISON: 05/25/2024 FINDINGS: VASCULATURE: Aorta: No acute findings. No abdominal aortic aneurysm. No dissection. Celiac trunk and mesenteric arteries: No acute findings. No occlusion or significant stenosis. Renal arteries: No acute findings. No occlusion or significant stenosis. Iliac arteries: No acute findings. No occlusion or significant stenosis. Lung bases: Unremarkable. No mass. No consolidation. Pleural space: Trace left pleural effusion. Small right pleural effusion ABDOMEN: Liver: Unremarkable. No mass. Gallbladder and bile ducts: Unremarkable. No calcified stones. No ductal dilation. Pancreas: Unremarkable. No ductal dilation. No mass. Spleen: Unremarkable. No splenomegaly. Adrenals: Unremarkable. No mass. Kidneys and ureters: Simple 2.3 cm left renal cysts. No follow-up of these simple cysts is necessary. No hydronephrosis. Stomach and bowel: Unremarkable. No obstruction. No mucosal thickening. PELVIS: Appendix: No findings to suggest acute appendicitis. Bladder: Unremarkable. No mass. Reproductive: Unremarkable as visualized. ABDOMEN and PELVIS: Intraperitoneal space: Unremarkable. No significant fluid collection. No free air. Bones/joints: Postop changes L4 through S1 posterior fusion. No acute fracture. No dislocation. Soft tissues: Unremarkable. Lymph nodes: Unremarkable. No enlarged lymph nodes. IMPRESSION: Trace left pleural effusion. Electronically signed by: Brigido Atwood MD 07/17/25 23:07 PM
[2025-07-18 06:42] LABS: Alanine Aminotransferase 7.0 U/L (7-52); Albumin Globulin Ratio 1.1 (0.9-2); Albumin Level 2.9 gm/dl (3.4-5.0); Alkaline Phosphatase 42.0 U/L (34-104); Anion Gap 8.0 (3-11); Bilirubin,Total 0.3 mg/dl (0.2-1.0); Blood Urea Nitrogen 13.0 mg/dl (6-23); Calcium 8.5 mg/dl (8.6-10.3); Carbon Dioxide 33.0 mmol/L (21-32); Chloride 95.0 mmol/L (98-107); Creatinine Clr Calc Pharmacy 70.1 ml/min; Globulin 2.7 gm/dl (2.5-4.0); Glucose 119.0 mg/dl (70-99(Fasting)); Potassium 3.8 mmol/L (3.5-5.1); Sodium 136.0 mmol/L (136-145); Total Protein 5.6 gm/dl (6.0-8.3)
[2025-07-18 10:03] LABS: Hematocrit (blood only) 26.4 % (37.0-47.0); Hemoglobin 7.8 g/dl (12.0-16.0); Mean Corpuscular Hemoglobin 25.8 pg (25.0-34.0); Mean Corpuscular Volume 87.4 fL (80.0-100.0); Platelet Count 237 K/uL (130-400); RDW Standard Deviation 50.9 fL (36.4-46.3); Red Blood Count 3.02 M/uL (4.20-5.40); White Blood Count 6.04 K/ul (4.8-10.8)
[2025-07-18] MEDS: IRON SUCROSE 300 MG in SODIUM CHLORIDE 0.9% 250 ML IV ONE (14:01)
--- NOTE | 2025-07-18 23:49 | Hospitalist Progress Note ---
Date of Service July 18, 2025 Assessment & Plan (1) Elevated troponin I level: (2) Bilateral edema of lower extremity: (3) Anemia: (4) Pulmonary edema: (5) Iron deficiency: Plan #Acute on chronic anemia #H/o Iron deficiency - pt is receiving 2 units PRBC on admission - pt has had extensive GI evaluation without identifiable cause - Hematology consult recommending IV venofer which we will start 300mg IV today and she will continue this as outpatient - check occult stool - monitor hemoglobin post transfusion - Ct angiogram without bleed #Volume overload #Elevated troponin - ECHO (05/2025): EF: 55-60% grade I DD, mild concentric LVH - BNP: 486, Trop consistent with type 2 NSTEMI - trend trop at this time, pt does not have chest pain and EKG does not reveal any acute ischemia - Continue Lasix 40mg IV daily - monitor on tele - repeat limited TTE unremarkable - daily weight, I&Os #Dyspnea #Coughing - combination of anemia and volume overload - reassess after transfusion and diuresis - hold off on any further abx at this time - guaifenesin BID - ICS #Carotid artery disease - right TCAR 11/2022, left TCAR 01/2023, redo left TCAR 04/2024 - will hold clopidogrel at this time, resume once Hgb stabilizes #h/o multiple DVT / PE #Thrombophilia - hold Eliquis at this time - resume once Hgb stable #COPD #YURI #Chronic hypoxia - cont supplemental oxygen - cont home inhalers - cont montelukast - CPAP ordered #HLD - cont statin and ezetimibe #Hypothyroidism - cont levothyroxine #Neuropathic pain - cont gabapentin - pt also takes doxycycline chronically due to spinal surgery, cont at this time #Psoriatic arthritis - on Cyltezo weekly, pt reports last dose on 07/12 - follows outpatient with rheumatology #Obesity - pt on Tirzepatide weekly, pt reports last dose on 07/12 #Code status: DNR / DNI, biPAP ok #VTE Prophylaxis - pt is on eliquis at home, will hold for now. cont SCDs #Dispo: admit on tele, PT / OT eval, pending hgb stability Admission and Anticipated Discharge Date Admission Date: July 16, 2025 Subjective Hematology recommending intravenous Venofer. Continues to improve daily. Physical Exam Respiratory: normal respiratory effort; no respiratory distress Auscultation: + breath sounds absent (bibasal); no crackles and no wheezes Cardiovascular: Rate/Rhythm: regular rate and regular rhythm Extremities: + pedal edema; no calf tenderness Results & Data Results & Data Vital Signs (Past 12 Hours) Vital Signs Temp Pulse Pulse Resp BP Pulse Ox Pulse Ox 07/18/25 20:15 07/18/25 20:07 36.7 C 76 19 133/80 98 07/18/25 20:06 90 22 95 07/18/25 15:21 88 18 98 07/18/25 14:48 36.7 C 83 18 123/70 97 07/18/25 14:32 95 O2 Del Method O2 Del Method O2 Flow Rate O2 Flow Rate 07/18/25 20:15 Nasal Cannula 4 07/18/25 20:07 Nasal Cannula 4 07/18/25 20:06 Nasal Cannula 3 07/18/25 15:21 Nasal Cannula 3 07/18/25 14:48 Room Air 07/18/25 14:32 Nasal Cannula 2 PG Care Time/CCT Total # of Minutes Spent Total Time Spent with Patient: Total time spent is greater than 50% in coordination of care (as documented) at patient's floor/unit and/or counseling patient: Coding Level of Care Code 70254 SUB INP/OBS CARE 2/35MIN Diagnoses Elevated troponin I level R79.89 Bilateral edema of lower extremity R60.0 Anemia D64.9 Pulmonary edema J81.1 Iron deficiency E61.1
[2025-07-19] MEDS: ALBUT/IPRATROP 3MG/0.5MG NEB 3 ML VIAL INH PRN (04:39)
[2025-07-19 06:24] LABS: Hematocrit (blood only) 26.6 % (37.0-47.0); Hemoglobin 7.8 g/dl (12.0-16.0); Mean Corpuscular Hemoglobin 25.7 pg (25.0-34.0); Mean Corpuscular Volume 87.5 fL (80.0-100.0); Platelet Count 247 K/uL (130-400); RDW Standard Deviation 52.0 fL (36.4-46.3); Red Blood Count 3.04 M/uL (4.20-5.40); White Blood Count 5.81 K/ul (4.8-10.8)
[2025-07-19 06:58] LABS: Alanine Aminotransferase 7.0 U/L (7-52); Albumin Globulin Ratio 1.2 (0.9-2); Albumin Level 3.1 gm/dl (3.4-5.0); Alkaline Phosphatase 39.0 U/L (34-104); Anion Gap 4.0 (3-11); Bilirubin,Total 0.3 mg/dl (0.2-1.0); Blood Urea Nitrogen 11.0 mg/dl (6-23); Calcium 8.6 mg/dl (8.6-10.3); Carbon Dioxide 37.0 mmol/L (21-32); Chloride 97.0 mmol/L (98-107); Creatinine Clr Calc Pharmacy 64.6 ml/min; Globulin 2.6 gm/dl (2.5-4.0); Glucose 124.0 mg/dl (70-99(Fasting)); Potassium 4.7 mmol/L (3.5-5.1); Sodium 138.0 mmol/L (136-145); Total Protein 5.7 gm/dl (6.0-8.3)
[2025-07-19 07:34] VITALS: RESP 18
[2025-07-19] MEDS: IRON SUCROSE 300 MG in SODIUM CHLORIDE 0.9% 250 ML IV ONE (10:31)
[2025-07-19 11:03] VITALS: BP 133/71; TEMP 98.2
[2025-07-19 11:11] VITALS: O2SAT 98
--- NOTE | 2025-07-19 13:30 | Discharge Summary ---
Discharge Summary Date of Service July 19, 2025 Principal Dx & Hospital Course #1 = Principal Diagnosis (1) Elevated troponin I level: (2) Bilateral edema of lower extremity: (3) Anemia: (4) Pulmonary edema: (5) Iron deficiency: Plan Leona Carrington is a 64 year old female admitted to [facility] from July 16 to the 2024 due to shortness of breath on exertion. She was diagnosed with acute on chronic iron deficiency anemia and acute heart failure with preserved ejection fraction. She received 2 units of packed red blood cells and hemoglobin appeared stable following this. Fecal occult blood was positive however extensive previous gastroenterology evaluations have not revealed a cause of your bleeding therefore decided not to repeat these at the current time as recently performed within the last year. CT abdominal angiogram did not show any lower gastrointestinal bleed. She received Venofer 300 mg IV x2 on advice of hematology. Recommend restarting on clopidogrel on discharge and and Eliquis in approximately 1 week if hemoglobin is stable on the clopidogrel. Possibly we could think about reducing the Eliquis dose to a more prophylaxis dose for prior deep vein thrombosis and having a Watchman device for her atrial fibrillation. She was advised to discuss this further with her custody officer. Consider further blood transfusions as an outpatient if hemoglobin drops below 7 which could be arranged through her internet architect. She was also diagnosed with heart failure with preserved ejection fraction. No acute change on limited echocardiogram here from her prior in May. Pu lmonary edema and shortness of breath improved with Lasix 40 mg IV daily during her hospitalization. Recommend continuing on Lasix 40 mg p.o. daily on discharge. Please follow-up with your custody officer for ongoing management of this. She is back to her baseline 3LPM O2 on discharge. Notes For Next Care Provider Follow up CBC in 1 week. Arrange blood transfusion if Hgb <7. Restart on Eliquis if Hgb stable. 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 She also has this wet, loose cough that was recently treated with medrol dose pk. She notes some improvement but not resolution. Over the last 3 days, her symptoms have been worsening. She notes some burning in her chest especially with swallowing but denied chest pain. She also reports that she has had extensive GI workup and has not been able to find out the cause of her anemia. She follows as outpatient for iron infusion with hematology team. She denied every getting a bone marrow evaluation. She reports had a lot of workup done at [place]. In the ED, she was found to have anemia with Hgb of 6.2. She also had elevated BNP and troponin without EKG changes. Discharge Exam Respiratory normal respiratory effort, lungs clear to auscultation Cardiovascular Rate/Rhythm: regular rate and regular rhythm Heart Sounds: no murmur Extremities: + pedal edema (trace b/l equal) Gastrointestinal (Abdomen) normal bowel sounds, soft, nontender, no hepatosplenomegaly Discharge Plan Discharge Items Patient Disposition: Home - Self-Care Reason For Visit: DYSPNEA ON EXERTION Discharge Diagnosis: Acute on chronic iron deficiency anemia Acute heart failure with preserved ejection fraction Condition on Discharge: Fair Activity: Resume your previous activity Non-emergency contact: Primary Care Provider Call non-emergency contact if: you have any medication questions and your symptoms worsen Follow-up/Referrals: Gerda Johnson DO [Primary Care Provider] - 07/26/25 8:20 am (follow up scheduled on 07/26/25 at 8:20 with Lima Ochoa) Diet: Heart Healthy Addtl Attending Provider Instructions: You were admitted to [facility] from July 16 to the 2024 due to shortness of breath on exertion. He was diagnosed with acute on chronic iron deficiency anemia and acute heart failure with preserved ejection fraction. He received 2 units of packed red blood cells and hemoglobin appeared stable following this. Fecal occult blood was positive however extensive previous gastroenterology evaluations have not revealed a cause of your bleeding therefore decided not to repeat these at the current time. CT angiogram did not show any lower gastrointestinal bleed here. You received 2 times Venofer 300 mg IV on advice of hematology. Recommending restarting on clopidogrel on discharge and and Eliquis in approximately 1 week if hemoglobin is stable on the clopidogrel. Possibly you could think about reducing the Eliquis dose to a more prophylaxis dose for prior deep vein thrombosis and having a Watchman device for your atrial fibrillation. Please discuss these further with your custody officer. Consider further blood transfusions as an outpatient if hemoglobin drops below 7. Please follow-up with your internet architect for ongoing management of your anemia. You are also diagnosed with heart failure with preserved ejection fraction. No acute change on limited echocardiogram here from your prior in May. This improved with Lasix 40 mg IV daily during her hospitalization. Recommend continuing on Lasix 40 mg p.o. daily on discharge. Please follow-up with your custody officer for ongoing management of this. Pending Studies at Discharge: Yes (Free kappa lambda light chains, protein electrophoresis) Stand-Alone Forms: My [facility] Insider Pages, Smoking Cessation Medications and DC Order Prescriptions: New furosemide [Lasix] 40 mg tablet 40 mg PO DAILY Qty: 30 0RF ipratropium-albuterol 0.5 mg-3 mg(2.5 mg base)/3 mL solution for nebulization 3 ml inhalation Q4H PRN (Reason: wheezing) Qty: 180 0RF Continued (DME) Hospital Bed Misc See Rx Instructions .ROUTE .MEDSUPPLY Qty: 1 0RF Rx Instructions: Dx: M19.90, M96.1, M51.9, M48.02, M48.04, J44.9 (DME) blood-glucose meter [OneTouch Verio Meter] Misc See Rx Instructions .ROUTE .MEDSUPPLY Qty: 1 0RF Rx Instructions: As directed (DME) lancets [OneTouch Delica Lancets] 30 gauge [facility] See Dose Instructions .ROUTE .MEDSUPPLY Qty: 200 4RF Dose Instruction: As directed Rx Instructions: testing four times per day. cholecalciferol (vitamin D3) 250 mcg (10,000 unit) tablet 500 mcg PO DAILY Patient Comments: 07/16- Not on faxed list from pharmacy unable to verify cyanocobalamin (vitamin B-12) 500 mcg tablet 1,000 mcg PO DAILY Qty: 60 5RF Patient Comments: 07/16- Not on faxed list from pharmacy unable to verify silver sulfadiazine [Silvadene] 1 % cream 1 applic topical DAILY PRN (Reason: wound healing) Qty: 50 1RF Patient Comments: 07/16- Not on faxed list from pharmacy unable to verify Rx Instructions: apply a 1.5 mm thickness metoprolol succinate 25 mg tablet extended release 24 hr 25 mg PO BID Qty: 180 3RF Hold Instructions: hypotensive (DME) blood sugar diagnostic Strip See Dose Instructions .ROUTE .MEDSUPPLY Qty: 100 5RF Dose Instruction: As directed Rx Instructions: testing four times per day. ezetimibe [Zetia] 10 mg tablet 10 mg PO HS Qty: 90 3RF clobetasol 0.05 % cream 1 applic topical BID PRN (Reason: rash) Qty: 45 0RF esomeprazole magnesium [Nexium] 40 mg capsule,delayed release(DR/EC) 40 mg PO BID Qty: 180 1RF levocetirizine [Xyzal] 5 mg tablet 5 mg PO HS Qty: 90 1RF folic acid 1 mg tablet 1 mg PO QAM Qty: 90 3RF magnesium oxide 400 mg magnesium tablet 400 mg PO TID Qty: 270 1RF adalimumab-adbm [Cyltezo(CF) Pen] 40 mg/0.4 mL pen injector kit 40 mg subcut .WEEKLY Qty: 4 6RF Patient Comments: 07/16- Not on faxed list from pharmacy unable to verify albuterol sulfate 90 mcg/actuation HFA aerosol inhaler 2 puff INHALATION Q6H PRN (Reason: Wheezing) Qty: 18 5RF levothyroxine 200 mcg tablet 200 mcg PO QAM Qty: 90 1RF Rx Instructions: please change to 90 day supply rizatriptan [Maxalt] 10 mg tablet See Rx Instructions .ROUTE .COMPLEX Qty: 10 0RF Rx Instructions: take 1 tab at onset of headache; if no relief may repeat 1 tab after at least 2 hrs; max = 3 tabs/24 hr pravastatin 80 mg tablet 80 mg PO DAILY Qty: 30 2RF hydroxyzine pamoate [Vistaril] 25 mg capsule 25 mg PO TID PRN (Reason: Anxiety) Qty: 60 5RF gabapentin 800 mg tablet 800 mg PO UD Qty: 105 3RF Rx Instructions: 800 mg PO 1 tablet QAM, 1 tablet QPM, and 1.5 tablet HS; (VERIFIED PAT 11/24/22) montelukast [Singulair] 10 mg tablet 10 mg PO QAM Qty: 90 1RF benzonatate 200 mg capsule 200 mg PO BID PRN (Reason: cough) Qty: 30 4RF epinephrine [EpiPen 2-Manny] 0.3 mg/0.3 mL auto-injector 0.3 mg IM Q10M PRN (Reason: anaphylaxis) Qty: 2 1RF Rx Instructions: for 2 doses (DME) Flutter Valve Device See Rx Instructions .Route Qty: 1 0RF Rx Instructions: Use it QID trazodone 100 mg tablet 300 mg PO HS Qty: 270 2RF tirzepatide 10 mg/0.5 mL pen injector 10 mg subcut .weekly Qty: 2 4RF (DME) Back brace See Rx Instructions .Route .MEDSUPPLY Qty: 1 0RF Rx Instructions: As directed (DME) Hospital Bed Mattress See Rx Instructions .Route .MEDSUPPLY Qty: 1 0RF Rx Instructions: As directed duloxetine 60 mg capsule,delayed release(DR/EC) 60 mg PO BID Qty: 60 11RF sucralfate [Carafate] 1 gram tablet 1 g PO BID PRN (Reason: Acid Reflux) Qty: 60 5RF (DME) Oxygen Home Liters Per Minute See Rx Instructions .ROUTE .MEDSUPPLY Dose Instruction: As directed Rx Instructions: 3LPM via NC @ HS. doxycycline hyclate 100 mg capsule 100 mg PO QPM ofloxacin 0.3 % drops 10 drp otic (ear) DAILY 7 Days Qty: 10 1RF chlorzoxazone 500 mg tablet 500 mg PO TID PRN (Reason: Muscle Spasm) (DME) Batteries for scooter 0 .Route .MEDSUPPLY Qty: 1 0RF Rx Instructions: As directed oxybutynin chloride 5 mg tablet 5 mg PO TID Qty: 90 11RF mometasone 0.1 % cream 1 applic topical DAILY PRN (Reason: allergic reaction) Qty: 15 3RF Patient Comments: 07/16- Not on faxed list from pharmacy unable to verify Rx Instructions: Apply to affected ear once daily as needed for itching (DME) CPAP Machine Misc .Route Qty: 1 0RF Rx Instructions: CPAP 10 cm of water with oxygen bleed at 1 L/min, mask fit patient comfort, heated modification, compliance download capabilities, DME: [facility] medical equipment Talya Ellipta 200-62.5-25 mcg blister with device 1 inh inhalation DAILY Qty: 60 3RF (DME) CPAP Supplies Misc See Rx Instructions .Route Qty: 1 0RF Rx Instructions: CPAP supplies,mask,headgear,filters,tubing,water chamber LON99 oxycodone 10 mg tablet 10 mg PO Q6H PRN (Reason: pain, severe) Hold Instructions: Hold refill Oxycodone. UA Neg despite #90 tabs monthly. guaifenesin [Mucinex] 1,200 mg Tablet Extended Release 12hr 1,200 mg PO Q12H PRN (Reason: Nasal Congestion) Patient Comments: 07/16- Not on faxed list from pharmacy unable to verify clopidogrel [Plavix] 75 mg tablet 75 mg PO QAM nystatin 100,000 unit/mL suspension 0 unit PO UD Patient Comments: 07/16- Not on faxed list from pharmacy unable to verify Rx Instructions: Swish and swallow 5mL PO qid x 10 days. nystatin 100,000 unit/gram ointment 0 applic topical BID PRN (Reason: rash) Patient Comments: 07/16- Not on faxed list from pharmacy unable to verify buspirone 10 mg tablet 10 mg PO UD Rx Instructions: Take 1 tab PO in AM and afternoon, 1.5 tabs PO QHS nitroglycerin [Nitrostat] 0.4 mg tablet, sublingual 0 mg Sublingual UD PRN (Reason: Pain) Patient Comments: 07/16- Not on faxed list from pharmacy unable to verify betamethasone dipropionate 0.05 % cream 0 applic topical BID PRN (Reason: skin irritation) Patient Comments: 07/16- Not on faxed list from pharmacy unable to verify (DME) miscellaneous medical supply Misc VAGINAL Rx Instructions: EGG CRATE MATTRESS PAD/TOPPER FOR HOSPITAL BED Held Eliquis 5 mg tablet See Rx Instructions .ROUTE .COMPLEX Qty: 180 1RF Hold Instructions: Resume on 07/26/25. Dose Instruction: TAKE ONE TABLET BY MOUTH TWICE DAILY Rx Instructions: TAKE ONE TABLET BY MOUTH TWICE DAILY Discontinued ipratropium-albuterol 0.5 mg-3 mg(2.5 mg base)/3 mL solution for nebulization 3 ml inhalation Q2H Qty: 180 3RF Discharge Orders: Discharge Order (Routine); Ordered 07/19/25 Ordered By: Frank Escobar Admission Data Admit Date/Time: 07/16/25 13:44 Attending Provider: Frank Escobar Admit Provider: Sarah Fair Primary Care Provider: Gerda Johnson Other Providers: Shawanda Avila Other Interventions: Discharge Summary Assessment (RN) Last Done: 07/19/25 14:11 Hospital Stay Data Consultations 07/16/25 12:30 ED Decision to Admit Stat 07/16/25 14:32 Consult Hematology Routine Diagnostic Imagining Performed 07/16/25 11:25 US venous doppler LE BI Stat 07/17/25 17:20 CT angio abdomen pelvis w con Routine Pending Results Patient Have Any Pending Studies at Discharge: Yes (Free kappa lambda light chains, protein electrophoresis) Discharge Instructions Given to Patient (Per Discharging Provider) You were admitted to [facility] from July 16 to the 2024 due to shortness of breath on exertion. He was diagnosed with acute on chronic iron deficiency anemia and acute heart failure with preserved ejection fraction. He received 2 units of packed red blood cells and hemoglobin appeared stable following this. Fecal occult blood was positive however extensive previous gastroenterology evaluations have not revealed a cause of your bleeding therefore decided not to repeat these at the current time. CT angiogram did not show any lower gastrointestinal bleed here. You received 2 times Venofer 300 mg IV on advice of hematology. Recommending restarting on clopidogrel on discharge and and Eliquis in approximately 1 week if hemoglobin is stable on the clopidogrel. Possibly you could think about reducing the Eliquis dose to a more prophylaxis dose for prior deep vein thrombosis and having a Watchman device for your atrial fibrillation. Please discuss these further with your custody officer. Consider further blood transfusions as an outpatient if hemoglobin drops below 7. Please follow-up with your internet architect for ongoing management of your anemia. You are also diagnosed with heart failure with preserved ejection fraction. No acute change on limited echocardiogram here from your prior in May. This improved with Lasix 40 mg IV daily during her hospitalization. Recommend continuing on Lasix 40 mg p.o. daily on discharge. Please follow-up with your custody officer for ongoing management of this. Total Time Total Time Spent Total Time Spent (In Minutes): 40 Total Time Includes: Examination of the Patient, Discharge Planning and Medication Reconciliation Coding Level of Care Code 48957 INP/OBS DISCH >30 MIN Diagnoses Elevated troponin I level R79.89 Bilateral edema of lower extremity R60.0 Anemia D64.9 Pulmonary edema J81.1 Iron deficiency E61.1
[2025-07-19 14:12] VITALS: PULSE 76
[2025-07-24 06:22] LABS: Albumin 3.0 g/dL (3.8-4.8); Beta-1-Globulin 0.4 g/dL (0.4-0.6); Gamma Globulin 0.7 g/dL (0.8-1.7); Total Protein 5.6 g/dL (6.1-8.1)
== END 2025-07-19 14:41 | disposition home or self-care (01) | DRG 811 ==
LOC: ED 10:24 → INTOOBSV 13:44 → SUATTDRO 13:44 → EDINP 13:44 → 4W 14:34